=== PATIENT | female | born 1950 | race Caucasian/White ===

== ENCOUNTER 2016-06-30 11:21 | Outpatient (RCR) | payer MEDICAID ==
[~2016-06-30 11:21] MED LIST: ADV1DS; ALBU0.8322 IH; ALBU2.5V4 NEB; ALBU8.5H2 IH; ALBU8.5H2 INH; ALPR-557 PO; AMLO10TA PO; AMLO5TAB2 PO; ASP325T PO; ASP325TEC PO; ASP81CT PO; ASPI-875 PO; ASPI-892 PO; ASPI-983 PO; ATOR80TA PO; BUDE10.2 INH; BUDE6HFA INH; CALC-656 PO; CALC-76 PO; CALC625T68 PO; CEPH250T PO; CETI10CA PO; CLOP75TA28 PO; CLPD75T PO; CYAN50LO PO; DCS100C PO; DIAZ-345 PO; DIPH50CA PO; DIPH50CA33 PO; DOXA2TAB2 PO; DOXA4TAB2 PO; DOXY100C2 PO; DXZS2T GT; ENAL5TAB PO; EZET10TA23 PO; EZET10TA5 PO; EZET1TAB21; FERR-57 PO; FERR27TA PO; FLC100T1 PO; FURO20TA4 PO; FURO40TA4 PO; GABA-488 PO; GBPN300C PO; GENT3.5O3 OP; GENT5DRO30 OU; GLUC500C2 PO; GNT.3OP5 OU; HYDR-3720 PO; HYDR-3820 PO; IBP800T; IBP800T PO; IBUP-1780 PO; IBUP800T26 PO; INSA70301U SQ; INSHUMR1; INSU100I13 SC; INSU100I13 SQ; INSU100I14 SQ; INSU100V11; INSU100V13 IJ; INSU100V16 SQ; ISOS30TA3 PO; K-ROCEP1PB IV; KCL10CCR PO; LEVO50TA6 PO; LORA-405 PO; LORA-794 PO; LORA0.5T PO; LORA1TAB PO; LOSA100T7 PO; LOSA25TA5 PO; LOSA50TA6 PO; LVT.05T PO; MECL-124 PO; METO-272 PO; METO-274 PO; METO200T32 PO; METO50TA7 PO; MICO45CR71 VG; MNTL10T PO; MONT10TA24 PO; MULT-974 PO; NF-MET200T PO; NITR0.4T SL; NPH INSULIN SQ; NPH,100I3 SQ; NYST15PO2 TOP; NYST60PO TOP; OMEP-10 PO; OMEP20CA12 PO; OMEP40CA36 PO; ONDA4FIL4 PO; ONDA4TAB10 SL; ONDA4TAB2 PO; ONDAN4ODT PO; ONDN4T PO; OXYC-191 PO; OXYC-465 PO; OXYC1TAB95 PO; PHEN200T27 PO; PITA2TAB2 PO; PITA4TAB2 PO; POLY17PO6 PO; POTASSIUM; PSYL0.525 PO; REGULAR INSULIN SC; RT-ALBUINH INH; SCOP1PAT TD; SILV25CR TOP; SULF-109 PO; SULF-222 PO; VANCOMYCIN 25 MG/ML OU; WELCHOL 625MG PO; ZLP10T
--- OUTSIDE RECORDS SUMMARY | 2016-06-30 11:24 | XMS REPORT | Continuity of Care Document ---
Author Author [facility] Organization [facility] Address Unknown Phone Unavailable Care Team Providers Care It Auditor Name Role Phone Panda Obregon PCP [phone] Source Comments Some departments are not documenting in the electronic medical record. If you do not see the information that you expected, contact Release of Information in the Health Information Management department at [phone] for further assistance in locating additional records.[facility] Active Allergies and Adverse Reactions Not on File Current Medications Not on file Active Problems Not on file Social History Tobacco Use Types Packs/Day Years Used Date Never Assessed Plan of Care Health Maintenance Due Date Last Done Comments Physical (Comprehensive) 1958 Exam Pertussis Vaccine 1962 Tetanus Vaccine 1968 Cervical Cancer Screening 1972 Breast Cancer Screening 1991 Colorectal Cancer 2001 Screening Shingles Vaccine 2011 Influenza Vaccine 05/07/2016 Results from Last 3 Months Not on file
[2016-08-24] MEDS ORDERED: CEPH-507 PO (18:47)
== END 2016-09-28 | disposition home or self-care (01) ==
LOC: ONC 11:21
PROVIDERS: ATTEND Internal Medicine Hematology & Oncology
DX: N18.9 Chronic kidney disease, unspecified (principal); D63.1 Anemia in chronic kidney disease; I12.9 Hypertensive chronic kidney disease with stage 1 through stage 4 chronic kidney disease, or unspecified chronic kidney disease; E11.22 Type 2 diabetes mellitus with diabetic chronic kidney disease; E03.9 Hypothyroidism, unspecified; I25.10 Atherosclerotic heart disease of native coronary artery without angina pectoris; E83.42 Hypomagnesemia; F41.9 Anxiety disorder, unspecified; F32.9 Major depressive disorder, single episode, unspecified; I65.23 Occlusion and stenosis of bilateral carotid arteries; E66.01 Morbid (severe) obesity due to excess calories; Z68.41 Body mass index [BMI] 40.0-44.9, adult; Z79.4 Long term (current) use of insulin; Z79.899 Other long term (current) drug therapy; Z45.2 Encounter for adjustment and management of vascular access device
CPT/HCPCS: 96523

== ENCOUNTER 2016-09-23 20:13 | Emergency (ER) | payer MEDICAID ==
[~2016-09-23] VITALS: Ht 157.5 cm; Wt 92.4 kg
[~2016-09-23 20:13] MED LIST changes: +CEPH-507 PO
--- OUTSIDE RECORDS SUMMARY | 2016-09-23 20:28 | XMS REPORT | Continuity of Care Document ---
Author Author [facility] Organization [facility] Address Unknown Phone Unavailable Care Team Providers Care Toilet Products Molder Name Role Phone Panda Obregon PCP [phone] Source Comments Some departments are not documenting in the electronic medical record. If you do not see the information that you expected, contact Release of Information in the Health Information Management department at [phone] for further assistance in locating additional records.[facility] Active Allergies and Adverse Reactions Not on [...]
[2016-09-23] MEDS ORDERED: NITROGLYCERIN 2% OINT 1 GM UNIT DOSE PACKET TOP ONE (20:45)
[2016-09-23] MEDS: meTOproloL SUCCINATE 50 MG (TOPROL XL) TAB PO SCH ×2 (20:54→22:04)
[2016-09-23 20:55] LABS: BASOPHILS % (AUTO) 0 % (0-10); EOSINOPHILS # (AUTO) 0.1 10^3/uL (0.0-0.3); EOSINOPHILS % (AUTO) 2 % (0-10); LYMPHOCYTES # (AUTO) 0.5 X 10^3 (1.0-4.0); LYMPHOCYTES % (AUTO) 9 % (12-44); MEAN CORPUSCULAR HEMOGLOBIN 33 PG (25-34); MEAN CORPUSCULAR HGB CONC 33 G/DL (32-36); MEAN CORPUSCULAR VOLUME 99 FL (80-99); MEAN PLATELET VOLUME 11.1 FL (7.4-10.4); MONOCYTES # (AUTO) 0.5 X 10^3 (0.0-1.0); MONOCYTES % (AUTO) 9 % (0-12); NEUTROPHILS # (AUTO) 4.5 X 10^3 (1.8-7.8); NEUTROPHILS % (AUTO) 80 % (42-75); PLATELET COUNT 80 10^3/uL (130-400); RED BLOOD COUNT 3.54 10^6/uL (4.35-5.85); RED CELL DISTRIBUTION WIDTH 14.3 % (10.0-14.5); WHITE BLOOD COUNT 5.6 10^3/uL (4.3-11.0)
[2016-09-23 20:59] LABS: INR 1.2 (0.8-1.4); PROTHROMBIN TIME PATIENT 14.4 SEC (12.2-14.7)
[2016-09-23 21:09] LABS: ALANINE AMINOTRANSFERASE < 6 U/L (0-55); ALBUMIN 3.3 G/DL (3.2-4.5); AMYLASE 35 U/L (25-125); ANION GAP 12 MMOL/L (5-14); ASPARTATE AMINO TRANSFERASE 12 U/L (5-34); BILIRUBIN,TOTAL 0.5 MG/DL (0.1-1.0); BLOOD UREA NITROGEN 17 MG/DL (7-18); BUN/CREATININE RATIO 8; CARBON DIOXIDE 25 MMOL/L (21-32); CHLORIDE 101 MMOL/L (98-107); CREATINE KINASE 67 U/L (29-168); CREATININE SERUM 2.05 MG/DL (0.60-1.30); GFR ESTIMATED 24; GLUCOSE 371 MG/DL (70-105); LIPASE 87 U/L (8-78); POTASSIUM 3.3 MMOL/L (3.6-5.0); SODIUM 138 MMOL/L (135-145); TOTAL PROTEIN 6.2 G/DL (6.4-8.2)
--- NOTE | 2016-09-23 21:09 | Diagnostic Imaging Report ---
INDICATION: Chest pain. EXAMINATION: Single view of the chest was obtained. COMPARISON: 08/13/2016. FINDINGS: There continues to be cardiomegaly. The lungs show good aeration on today's exam. There has been decrease in pulmonary venous congestive changes with clearing of the lung bases. Minimal basilar pleural effusions remain present. Right double-lumen catheter remains present, unchanged. IMPRESSION: 1. Significant improvement in aeration with decreasing infiltrates and pleural effusion since previous exam. 2. Continued cardiomegaly with no evidence of pulmonary edema at this time. Dictated by: Dictated on workstation # [id number]
[2016-09-23] MEDS ORDERED: meTOproloL SUCCINATE 50 MG (TOPROL XL) TAB PO SCH (21:15)
[2016-09-23] MEDS ORDERED: doxAzosin 4 MG (CARDURA) TAB PO SCH (21:15)
[2016-09-23 21:16] LABS: TROPONIN I < 0.30 NG/ML (<0.30)
--- NOTE | 2016-09-23 21:21 | ED Chest Pain ---
General Chief Complaint: Chest Pain Stated Complaint: CHEST PAIN Source: patient (SOMEWHAT LIMITED AND DIFFICULT HISTORIAN), old records History of Present Illness Time seen by provider: 20:30 Initial Comments PT ARRIVES VIA EMS FROM HOME C/O LEFT LOWER CHEST AND MID CHEST PAIN X 3 DAYS C/O COUGH X 3 DAYS--MINIMALLY PRODUCTIVE CHEST PAIN IS SEVERE WITH MOVEMENT, COUGHING OR DEEP BREATHS NO KNOWN FEVER C/O SHORTNESS OF BREATH NO CHANGE IN CHRONIC SWELLING OF LEGS--PT HAS ESRD AND IS ON DIALYSIS / /WED--DID NOT REPORT THESE SYMPTOMS TO THEM YESTERDAY AT DIALYSIS PT STATES SHE HAS HAD A SINUS INFECTION FOR A MONTH, BUT HAS NOT SOUGHT CARE FOR IT HAS HAD NAUSEA TODAY PT DID NOT TAKE ANY OF HER 3 BLOOD PRESSURE MEDICATIONS TODAY, BUT TOOK ALL OF HER OTHER MEDICATIONS PT HAS HYDROCODONE AT HOME FOR CHRONIC PAIN ISSUES, BUT PT HAS NOT TAKEN ANY AT ANY TIME IN THE LAST 3 DAYS FOR PAIN PT TOOK 2 NTG AT HOME WITHOUT RELIEF EMS GAVE 324 MG ASPIRIN, ZOFRAN 4 MG AND FENTANYL 50 MCG WITHOUT IMPROVEMENT IN PAIN PT ALSO USED SYMBICORT JUST PRIOR TO ARRIVAL WITHOUT IMPROVEMENT PT HAS HISTORY OF COPD, CHF, CAD WITH LA X 4 AND STENTS X 11 PER PT PT WEARS O2 AT 2L/NC CONTINUOUSLY PCP: DR. HUMPHREYS ASSISTANT MEDIA BUYER: DR. MACIEL AT [place]--HAS BEEN TO DR. ACOSTA LOCALLY IN THE PAST MEDIA MARKETING COORDINATOR: DR. Lopez" Allergies and Home Medications Allergies Coded Allergies: propoxyphene (Verified Allergy, Mild, DIZZINESS, 02/20/14) codeine (Verified Allergy, Unknown, CAN TAKE OXYCODONE, 02/20/14) esomeprazole (Verified Allergy, Unknown, 02/20/14) ketorolac (Verified Allergy, Unknown, PT TAKES ASPIRIN AT HOME, 02/20/14) levofloxacin (Verified Allergy, Unknown, 02/20/14) promethazine (Verified Allergy, Unknown, 02/20/14) Uncoded Allergies: TAPE (Adverse Reaction, Mild, RASH, 11/23/14) Home Medications Albuterol Sulfate 8.5 Gm Hfa.aer.ad 2 PUFF INH Q4H PRN PRN SHORTNESS OF BREATH ( Reported) Aspirin 81 Mg Tablet.dr 81 MG PO DAILY (Reported) Budesonide/Formoterol Fumarate 10.2 Gm Hfa.aer.ad 2 PUFF INH BID (Reported) Cephalexin 500 Mg Capsule #14 500 MG PO BID Prescribed by: VERNON FLORES on 08/24/167 Clopidogrel Bisulfate 75 Mg Tablet 75 MG PO HS (Reported) Cyanocobalamin 50 Mcg Lozenge 50 MCG PO DAILY (Reported) Doxazosin Mesylate 4 Mg Tablet 4 MG PO DAILY (Reported) Ezetimibe 10 Mg Tablet 10 MG PO HS (Reported) Furosemide 40 Mg Tablet 40 MG PO DAILY (Reported) Gabapentin 300 Mg Capsule 300 MG PO TID (Reported) Gentamicin Sulfate 5 Ml Drops 1 DROP OU Q6H PRN PRN ALLERGIES (Reported) Ibuprofen 800 Mg Tablet 800 MG PO BID PRN PRN PAIN (Reported) Insulin Aspart 100 Unit/1 Ml Susp SQ UD (Reported) 201-250 = 2 UNITS 251-300 = 4 UNITS 301-350 = 6 UNITS 351-400 = 8 UNITS IF > THAN 400, CALL PHYSICIAN Insuln Asp Prt/Insulin Aspart 300 Units/3 Ml Solution 10 UNITS SQ HS (Reported) Insuln Asp Prt/Insulin Aspart 300 Units/3 Ml Solution 30 UNITS SC DAILY ( Reported) Isosorbide Mononitrate 30 Mg Tab.er.24h 15 MG PO HS (Reported) TAKES 1/2 (30MG) TABLET Levothyroxine Sodium 50 Mcg Tablet 50 MCG PO DAILY (Reported) Lorazepam 0.5 Mg Tablet 0.5 MG PO TID PRN PRN ANXIETY (Reported) Metoprolol Succinate 200 Mg Tab.er.24h 200 MG PO DAILY (Reported) Montelukast Sodium 10 Mg Tablet 10 MG PO HS (Reported) Nitroglycerin 0.4 Mg Tab.subl 0.4 MG SL UD PRN PRN CHEST PAIN (Reported) PLACE 1 TABLET UNDER TONGUE EVERY 5 MINUTES X 3 DOSES NEEDED FOR CHEST PAIN Nystatin 15 Gm Powder TOP BID PRN PRN RASH (Reported) Omeprazole 40 Mg Capsule.dr 40 MG PO DAILY (Reported) Ondansetron HCl 4 Mg Tablet 4 MG SL TID PRN PRN NAUSEA (Reported) Oxycodone HCl/Acetaminophen 1 Each Tablet 1 TAB PO Q6H PRN PRN PAIN (Reported) Review of Systems Constitutional: no symptoms reported EENTM: See HPI Nose Congestion Respiratory: See HPI Cough Shortness of Air Cardiovascular: See HPI Chest Pain EdemaDenies Lightheadedness, Denies Palpitations, Denies Syncope Gastrointestinal: Denies Abdominal Pain, NauseaDenies Vomiting Genitourinary: See HPI Musculoskeletal: see HPI (LEFT CHEST ) Skin: no symptoms reportedNo rash Psychiatric/Neurological: No Symptoms Reported Endocrine: No Symptoms Reported Hematologic/Lymphatic: No Symptoms Reported Past Nxpjghd-Xrsjmy-Nkjlqf Hx Patient Social History Alcohol Use: Denies Use Recreational Drug Use: No Smoking Status: Never a Smoker Recent Hopitalizations: No Immunizations Up To Date Tetanus Booster (TDap): Unknown PED Vaccines UTD: Yes Date of Pneumonia Vaccine: Feb 04, 2011 Date of Influenza Vaccine: Jun 23, 2014 Seasonal Allergies Seasonal Allergies: Yes Surgeries HX Surgeries: Yes (RIGHT CENTRAL DIALYSIS LINE, LEFT PORT; CARDIAC CATHS WITH STENTS X 11 ( PER PT) ; HIATAL HERNIA REPAIR; BILATERAL ROTATOR CUFF REPAIR; BACK SURGERY; SPIDER BITE SKIN EXCISION; HYST/BSO) Surgeries: Abdominal, Appendectomy, Arteriovenous Shunt, Cardiac, Coronary Stent, Dialysis, Eye Surgery, Gallbladder, Hysterectomy, Oophorectomy, Orthopedic, Vascular Surgery Respiratory Hx Respiratory Disorders: Yes (O2 AT 2L/NC CONTINUOUSLY) Respiratory Disorders: Asthma, Sleep Apnea, COPD Cardiovascular Hx Cardiac Disorders: Yes (CARDIAC STENTS X 11, "leaky valve"; LA X 4 PER PT) Cardiac Disorders: Chronic Edema/Swelling, Coronary Artery Disease, Heart Attack, High Cholesterol, Hypertension, Valvular Heart Disease Neurological Hx Neurological Disorders: Yes Neurological Disorders: Stroke Reproductive System Hx Reproductive Disorders: Yes Sexually Transmitted Disease: No HIV/AIDS: 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 Genitourinary Hx Genitourinary Disorders: Yes Genitourinary Disorders: Renal Failure, Dialysis Gastrointestinal Hx Gastrointestinal Disorders: Yes (SPASTIC COLON) Gastrointestinal Disorders: Gastroesophageal Reflux, Diverticulosis, Pancreatitis Musculoskeletal Hx Musculoskeletal Disorders: Yes (SCIATICA CHRONIC, RIGHT ARM FX 2015-CHRONIC RIGHT ARM PAIN ) Musculoskeletal Disorders: Arthritis, Fibromyalgia, Chronic Back Pain, Fractures Endocrine Hx Endocrine Disorders: Yes Endocrine Disorders: Diabetes, Insulin dep, Hypothyroidsim HEENT HX ENT Disorders: Yes (HX RETINAL BLOOD VESSELS RUPTURING ) HEENT Disorders: Cataract Cancer Hx Cancer: No Psychosocial Hx Psychiatric Problems: Yes (PANIC ATTACKS) Behavioral Health Disorders: Anxiety Integumentary HX Skin/Integumentary Disorder: Yes (HX MRSA ) Blood Transfusions Hx Blood Disorders: Yes (being treated by dr. rogel for low blood counts/ANEMIA) Adverse Reaction to a Blood Tr: No (does not want to receieve blood products) Family Medical History Family Medial History: Cancer 03 MOTHER (OVARIAN CANCER) Congestive heart failure 09 BROTHER ( OF CHF) DVT 09 SISTER FH: COPD (chronic obstructive pulmonary disease) 09 SISTER FH: bipolar disorder 09 BROTHER FH: emphysema 03 FATHER FHx: multiple sclerosis 09 BROTHER Family history: Cardiovascular disease 03 FATHER, Onset:Unknown Family history: Diabetes mellitus 03 MOTHER 09 BROTHER Family history: Hypertension 09 SISTER (ACTUALLY HAS LOW BLOOD PRESSURE NOT HIGH) Physical Exam Vital Signs Vital Sign - Last 12Hours Capillary Refill : General Appearance: No Apparent Distress WD/WN Other (PT SPLINTING LEFT CHEST AND GRIMACING. ) HEENT: PERRL/EOMI Neck: Full Range of Motion Normal Inspection Non Tender SuppleNo Carotid Bruit , No JVD Respiratory: Normal Breath Sounds No Accessory Muscle Use No Respiratory Distress Other (MARKED TENDERNESS TO LEFT MID AND LOWER CHEST WALL AND LEFT LATERAL AND POSTERIOR RIB AREA) Cardiovascular: Regular Rate, Rhythm No JVD No Murmur Normal Peripheral Pulses Gastrointestinal: Normal Bowel Sounds No Organomegaly No Pulsatile Mass Non Tender Soft Extremity: Normal Capillary Refill Normal Range of Motion Non Tender No Calf Tenderness Pedal Edema (2+ BILATERAL, CHRONIC VENOUS STASIS CHANGES BILATERALLY- -MILD ERYTHEMA TO LOWER LEGS BILATERALLY) Neurologic/Psychiatric: Alert Oriented x3 No 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 ANXIOUS. ) Skin: Normal Color Warm/Dry Progress/Results/Core Measures Results/Orders Lab Results Laboratory Tests Test 09/23/16 20:13 09/23/16 20:35 09/23/16 22:03 09/23/16 23:05 Range/Units Activated Partial Thromboplast Time 41 H 24-35 SEC Alanine Aminotransferase (ALT/SGPT) < 6 0-55 U/L Albumin 3.3 3.2-4.5 G/DL Alkaline Phosphatase 109 40-136 U/L Amylase Level 35 25-125 U/L Anion Gap 12 5-14 MMOL/L Aspartate Amino Transf (AST/SGOT) 12 5-34 U/L B-Type Natriuretic Peptide 325.0 H <100.0 PG/ML BUN/Creatinine Ratio 8 Basophils # (Auto) 0.0 0.0-0.1 10^3/uL Basophils (%) (Auto) 0 0-10 % Blood Urea Nitrogen 17 7-18 MG/DL Calcium Level 8.0 L 8.5-10.1 MG/DL Carbon Dioxide Level 25 21-32 MMOL/L Chloride Level 101 98-107 MMOL/L Creatine Kinase MB 2.4 <6.6 NG/ML Creatinine 2.05 H 0.60-1.30 MG/DL Eosinophils # (Auto) 0.1 0.0-0.3 10^3/uL Eosinophils (%) (Auto) 2 0-10 % Estimat Glomerular Filtration Rate 24 Glucose Level 371 H 70-105 MG/DL Hematocrit 35 35-52 % Hemoglobin 11.5 11.5-16.0 G/DL INR Comment 1.2 0.8-1.4 Lipase 87 H 8-78 U/L Lymphocytes # (Auto) 0.5 L 1.0-4.0 X 10^3 Lymphocytes (%) (Auto) 9 L 12-44 % Mean Corpuscular Hemoglobin 33 25-34 PG Mean Corpuscular Hemoglobin Concent 33 32-36 G/DL Mean Corpuscular Volume 99 80-99 FL Mean Platelet Volume 11.1 H 7.4-10.4 FL Monocytes # (Auto) 0.5 0.0-1.0 X 10^3 Monocytes (%) (Auto) 9 0-12 % Neutrophils # (Auto) 4.5 1.8-7.8 X 10^3 Neutrophils (%) (Auto) 80 H 42-75 % Platelet Count 80 L 130-400 10^3/uL Potassium Level 3.3 L 3.6-5.0 MMOL/L Prothrombin Time 14.4 12.2-14.7 SEC Red Blood Count 3.54 L 4.35-5.85 10^6/uL Red Cell Distribution Width 14.3 10.0-14.5 % Sodium Level 138 135-145 MMOL/L Total Bilirubin 0.5 0.1-1.0 MG/DL Total Creatine Kinase 67 29-168 U/L Total Protein 6.2 L 6.4-8.2 G/DL Troponin I < 0.30 <0.30 NG/ML White Blood Count 5.6 4.3-11.0 10^3/uL Lactic Acid Level 1.3 0.5-2.0 MMOL/L Glucometer 262 H 187 H 70-110 MG/DL Micro Results Microbiology 09/23/16 Influenza Types A,B Antigen (FAY) - Final, Complete My Orders Orders-ANNE MARIE ROSEN DO Amylase (09/23/16 20:41) Cbc With Automated Diff (09/23/16 20:41) Comprehensive Metabolic Panel (09/23/16 20:41) Creatine Kinase (09/23/16 20:41) Creatine Kinase Mb (09/23/16 20:41) Lipase (09/23/16 20:41) Partial Thromboplastin Time (09/23/16 20:41) Protime With Inr (09/23/16 20:41) Troponin I (09/23/16 20:41) Chest 1 View, Ap/Pa Only (09/23/16 20:41) O2 (09/23/16 20:41) Ekg Tracing (09/23/16 20:41) BNP (09/23/16 20:41) Monitor-Rhythm Ecg Trace Only (09/23/16 20:41) Lactic Acid Analyzer (09/23/16 20:41) Blood Culture (09/23/16 20:41) Influenza A And B Antigens (09/23/16 20:41) Nitroglycerin Ointment (Nitrobid Ointme (09/23/16 20:45) Metoprolol Succinate (Xl) Tab (Toprol Xl (09/23/16 20:45) Metoprolol Succinate (Xl) Tab (Toprol Xl (09/23/16 21:15) Doxazosin Tablet (Cardura Tablet) (09/23/16 21:15) Amlodipine Tablet (Norvasc Tablet) (09/23/16 21:15) Insulin (Regular) Human (Humulin R (Per (09/23/16 21:45) Morphine Injection (Morphine Injection (09/23/16 21:39) Accucheck Stat ONCE (09/23/16 21:55) Insulin (Regular) Human (Humulin R (Per (09/23/16 22:15) Ns (Ivpb) (Sodium C... W/Nicardipine Iv (09/23/16 22:45) Ns (Ivpb) (Sodium Chloride 0.9%) (09/23/16 22:36) Nicardipine Iv For Drip (Cardene I.V. (O (09/23/16 22:36) Medications Given in ED Current Medications Medications Dose Ordered Sig/Adela Route Start Time Stop Time Status Last Admin Dose Admin Insulin Human Regular 15 unit ONCE ONCE IV 09/23/16 22:15 09/23/16 22:16 DC 09/23/16 22:18 8 UNIT Nitroglycerin 1 inch ONCE ONCE TOP 09/23/16 20:45 09/23/16 20:49 DC 09/23/16 20:54 1 INCH Vital Signs/I&O Vital Sign - Last 12Hours 09/23/16 09/23/16 09/23/16 09/23/16 20:13 20:13 20:13 22:04 Temp 99.3 99.3 Pulse 86 Resp 16 B/P 215/109 Pulse Ox 98 98 O2 Delivery Nasal Cannula Room Air Nasal Cannula O2 Flow Rate 2 2 2 09/23/16 09/24/16 23:15 01:58 Temp 99.1 99.1 Pulse 71 71 Resp 16 16 B/P 146/67 Pulse Ox 98 98 O2 Delivery Nasal Cannula Nasal Cannula O2 Flow Rate 2 2.00 Progress Note : Progress Note MILD RELIEF OF PAIN WITH 1" NITROPASTE AND BP DOWN TO 199/87 GIVEN PT'S REGULAR BP MEDICATIONS WELL--METOPROLOL, CARDURA, AMLODIPINE PT ALSO GIVEN MORPHINE FOR CHEST PAIN --STATES IT MADE CHEST PAIN WORSE ( HAS HAD MORPHINE MULTIPLE TIMES BEFORE AND NOT HAD PROBLEMS) , BUT PT IS NOT SPLINTING OR GRIMACING AND IS VERY TALKATIVE WITH FEMALE IN ROOM.AND DOES NOT APPEAR TO BE IN ANY DISCOMFORT. BP IS ALSO DOWN AFTER MORPHINE WAS GIVEN BP DOWN TO 155/76 PRIOR TO STARTING CARDENE DRIP, SO IT WAS HELD. BP DOWN TO 146 /67 AT TIME OF TRANSFER 2200--ACCUCHECK 264-- 15 UNITS OF REGULAR INSULIN GIVEN, WHICH PT REFUSED AND STATES SHE WILL ONLY AGREE TO 8 UNITS--STATES HER "BLOOD SUGAR CAN NEVER GET BELOW 200 OR SHE WILL HAVE A SEIZURE" ACCUCHECK 187 AT TIME OF TRANSFER AND PT IS NOT HAVING ANY SYMPTOMS OF LOW BLOOD GLUCOSE. ECG Initial ECG Impression Time: 20:27 Initial ECG Rate: 85 Initial ECG Rhythm: Normal Sinus Initial ECG Comparisson: Unchanged Diagnostic Imaging Comments CXR--NO ACUTE PROCESS, SIGNIFICANT IMPROVEMENT IN AERATION WITH DECREASED INFILTRATES/PLEURAL EFFUSION AND NO PULMONARY EDEMA. CHRONIC CARDIOMEGALY--PER RADIOLOGIST REPORT @ 2114 Reviewed: Reviewed by Me Departure Communication Progress Notes 2139--CALLED [facility] DIRECT CALL 2145--SPOKE WITH DR. THOMPSON, HOSPITALIST, ACCEPTS PT FOR ADMIT. ADVISES LEE UTCKER TO GET SYSTOLIC BP < 160 Impression Impression: Primary Impression: Chest pain Additional Impressions: Uncontrolled hypertension Bronchitis Chest wall pain ESRD on dialysis Hx of coronary artery disease Diabetes mellitus, insulin dependent (IDDM), uncontrolled Disposition: XFER SHT-TRM HOSP Condition: Improved Departure-Patient Inst. Referrals: ISABEL HUMPHREYS MD (PCP/Family) Primary Care Physician ANNE MARIE ROSEN DO Sep 23, 2016 21:21
[2016-09-23] MEDS ORDERED: morphine INJ 10 MG/ML 1ML (SYR OR VIAL) IVP STA (21:39)
[2016-09-23] MEDS ORDERED: inSUlin (REGULAR) HUMAN 1 UNIT/0.01 ML (CHARGE PER UNIT) IV ONE ×2 (21:45→22:15)
[2016-09-23] MEDS: amLODIPine 10 MG (NORVASC) TAB PO ONE ×2 (22:04→22:13)
[2016-09-23] MEDS ORDERED: niCARdipine IV FOR DRIP 50 MG KIT ONE (22:36)
[2016-09-23] MEDS ORDERED: NS (IVPB) 250 ML ONE (22:36)
[2016-09-23] MEDS ORDERED: niCARdipine IV 50 MG in NS (IVPB) 230 ML IV SCH (22:45)
[2016-09-24 01:58] VITALS: BP 146/67
== END 2016-09-23 23:15 | disposition short-term general hospital (02) ==
LOC: EDUNIT# 20:22 → ER 20:23
DX: R07.9 Chest pain, unspecified (principal); J40 Bronchitis, not specified as acute or chronic; I51.7 Cardiomegaly; E11.65 Type 2 diabetes mellitus with hyperglycemia; I12.0 Hypertensive chronic kidney disease with stage 5 chronic kidney disease or end stage renal disease; N18.6 End stage renal disease; I50.9 Heart failure, unspecified; I25.10 Atherosclerotic heart disease of native coronary artery without angina pectoris; J44.9 Chronic obstructive pulmonary disease, unspecified; I25.2 Old myocardial infarction; Z79.4 Long term (current) use of insulin; Z79.82 Long term (current) use of aspirin; Z79.02 Long term (current) use of antithrombotics/antiplatelets; Z79.899 Other long term (current) drug therapy; Z95.5 Presence of coronary angioplasty implant and graft; Z99.81 Dependence on supplemental oxygen
CPT/HCPCS: 36415; 71010; 80053; 82150; 82550; 82553; 82962; 83605; 83690; 83880; 84484; 85025; 85610; 85730; 87040; 87804; 93005; 93041; 96374; 96375

== ENCOUNTER 2016-10-10 19:40 | Emergency (ER) | payer MEDICAID ==
[~2016-10-10] VITALS: Ht 167.6 cm; Wt 113.4 kg
--- OUTSIDE RECORDS SUMMARY | 2016-10-10 19:47 | XMS REPORT | Continuity of Care Document ---
Author Author [facility] Organization [facility] Address Unknown Phone Unavailable Care Team Providers Care Food Technician Name Role Phone Pnada Obregon PCP [phone] Source Comments Some departments are not documenting in the electronic medical record. If you do not see the information that you expected, contact Release of Information in the Health Information Management department at [phone] for further assistance in locating additional records.[facility] Active Allergies and Adverse Reactions Not [...]
[2016-10-10 20:02] LABS: BASOPHILS % (AUTO) 0 % (0-10); EOSINOPHILS # (AUTO) 0.2 10^3/uL (0.0-0.3); EOSINOPHILS % (AUTO) 3 % (0-10); LYMPHOCYTES # (AUTO) 0.5 X 10^3 (1.0-4.0); LYMPHOCYTES % (AUTO) 9 % (12-44); MEAN CORPUSCULAR HEMOGLOBIN 32 PG (25-34); MEAN CORPUSCULAR HGB CONC 34 G/DL (32-36); MEAN CORPUSCULAR VOLUME 95 FL (80-99); MEAN PLATELET VOLUME 10.4 FL (7.4-10.4); MONOCYTES # (AUTO) 0.5 X 10^3 (0.0-1.0); MONOCYTES % (AUTO) 10 % (0-12); NEUTROPHILS # (AUTO) 3.7 X 10^3 (1.8-7.8); NEUTROPHILS % (AUTO) 77 % (42-75); PLATELET COUNT 102 10^3/uL (130-400); RED BLOOD COUNT 3.48 10^6/uL (4.35-5.85); RED CELL DISTRIBUTION WIDTH 12.9 % (10.0-14.5); WHITE BLOOD COUNT 4.8 10^3/uL (4.3-11.0)
[2016-10-10] MEDS ORDERED: morphine INJ 10 MG/ML 1ML (SYR OR VIAL) IVP STA ×3 (20:16→22:09)
[2016-10-10 20:18] LABS: ALANINE AMINOTRANSFERASE 8 U/L (0-55); ALBUMIN 3.6 G/DL (3.2-4.5); ANION GAP 12 MMOL/L (5-14); ASPARTATE AMINO TRANSFERASE 20 U/L (5-34); BILIRUBIN,TOTAL 0.4 MG/DL (0.1-1.0); BLOOD UREA NITROGEN 15 MG/DL (7-18); BUN/CREATININE RATIO 10; CALCIUM 8.2 MG/DL (8.5-10.1); CARBON DIOXIDE 30 MMOL/L (21-32); CHLORIDE 95 MMOL/L (98-107); CREATININE SERUM 1.47 MG/DL (0.60-1.30); GFR ESTIMATED 36; GLUCOSE 371 MG/DL (70-105); MAGNESIUM 1.6 MG/DL (1.8-2.4); POTASSIUM 3.5 MMOL/L (3.6-5.0); SODIUM 137 MMOL/L (135-145); TOTAL PROTEIN 6.6 G/DL (6.4-8.2)
[2016-10-10] MEDS ORDERED: morphine INJ 10 MG/ML 1ML (SYR OR VIAL) ONE (20:19)
--- NOTE | 2016-10-10 20:19 | ED Chest Pain ---
General Chief Complaint: Chest Pain Stated Complaint: CHEST PAIN Source: patient Exam Limitations: no limitations History of Present Illness Time seen by provider: 20:05 Initial Comments Here with report of chest pain that started earlier today during dialysis. She reports that it was right-sided and radiating to her right arm. Describes it as a pressure and moderate. This evening it worsened and now is radiating to her neck and her left arm is also hurting. Denies nausea or vomiting. Does have significant cardiac history including 11 stents with the last one placed in September of this year. She did miss dialysis earlier this week but made a port today. She is not sure how much fluid they took off but had a 2 kg weight loss after dialysis. Timing/Duration: 4-6 hours Severity/Quality: moderate, severe Location: central Radiation: arms, neck, shoulders Prior CP/Workup: angina, cardiac cath, echocardiography, heart attack, stress test ASA po [employer]ADLEY [employer]MEMBER: Yes NTG SL BRADLEY [employer]WMEMBER: Yes Associated Symptoms: No abdominal pain, back painNo diaphoresis, edemaNo fever/chills, No nausea/vomiting, No shortness of breath, No weakness Allergies and Home Medications Allergies Coded Allergies: propoxyphene (Verified Allergy, Mild, DIZZINESS, 02/20/14) codeine (Verified Allergy, Unknown, CAN TAKE OXYCODONE, 02/20/14) esomeprazole (Verified Allergy, Unknown, 02/20/14) ketorolac (Verified Allergy, Unknown, PT TAKES ASPIRIN AT HOME, 02/20/14) levofloxacin (Verified Allergy, Unknown, 02/20/14) promethazine (Verified Allergy, Unknown, 02/20/14) Uncoded Allergies: TAPE (Adverse Reaction, Mild, RASH, 11/23/14) Home Medications Albuterol Sulfate 8.5 Gm Hfa.aer.ad 2 PUFF INH Q4H PRN PRN SHORTNESS OF BREATH ( Reported) Aspirin 81 Mg Tablet.dr 81 MG PO DAILY (Reported) Budesonide/Formoterol Fumarate 10.2 Gm Hfa.aer.ad 2 PUFF INH BID (Reported) Cephalexin 500 Mg Capsule #14 500 MG PO BID Prescribed by: VERNON FLORES on 08/24/16 3814 Clopidogrel Bisulfate 75 Mg Tablet 75 MG PO HS (Reported) Cyanocobalamin 50 Mcg Lozenge 50 MCG PO DAILY (Reported) Doxazosin Mesylate 4 Mg Tablet 4 MG PO DAILY (Reported) Ezetimibe 10 Mg Tablet 10 MG PO HS (Reported) Furosemide 40 Mg Tablet 40 MG PO DAILY (Reported) Gabapentin 300 Mg Capsule 300 MG PO TID (Reported) Gentamicin Sulfate 5 Ml Drops 1 DROP OU Q6H PRN PRN ALLERGIES (Reported) Ibuprofen 800 Mg Tablet 800 MG PO BID PRN PRN PAIN (Reported) Insulin Aspart 100 Unit/1 Ml Susp SQ UD (Reported) 201-250 = 2 UNITS 251-300 = 4 UNITS 301-350 = 6 UNITS 351-400 = 8 UNITS IF > THAN 400, CALL PHYSICIAN Insuln Asp Prt/Insulin Aspart 300 Units/3 Ml Solution 10 UNITS SQ HS (Reported) Insuln Asp Prt/Insulin Aspart 300 Units/3 Ml Solution 30 UNITS SC DAILY ( Reported) Isosorbide Mononitrate 30 Mg Tab.er.24h 15 MG PO HS (Reported) TAKES 1/2 (30MG) TABLET Levothyroxine Sodium 50 Mcg Tablet 50 MCG PO DAILY (Reported) Lorazepam 0.5 Mg Tablet 0.5 MG PO TID PRN PRN ANXIETY (Reported) Metoprolol Succinate 200 Mg Tab.er.24h 200 MG PO DAILY (Reported) Montelukast Sodium 10 Mg Tablet 10 MG PO HS (Reported) Nitroglycerin 0.4 Mg Tab.subl 0.4 MG SL UD PRN PRN CHEST PAIN (Reported) PLACE 1 TABLET UNDER TONGUE EVERY 5 MINUTES X 3 DOSES NEEDED FOR CHEST PAIN Nystatin 15 Gm Powder TOP BID PRN PRN RASH (Reported) Omeprazole 40 Mg Capsule.dr 40 MG PO DAILY (Reported) Ondansetron HCl 4 Mg Tablet 4 MG SL TID PRN PRN NAUSEA (Reported) Oxycodone HCl/Acetaminophen 1 Each Tablet 1 TAB PO Q6H PRN PRN PAIN (Reported) Review of Systems Constitutional: see HPINo chills, No fever EENTM: No Symptoms Reported Respiratory: No Symptoms Reported Cardiovascular: See HPI Chest Pain Edema Gastrointestinal: No Symptoms Reported Genitourinary: No Symptoms Reported Musculoskeletal: no symptoms reported Skin: no symptoms reported All Other Systems Reviewed Negative Unless Noted: Yes Past Ujkihdv-Paeicu-Nangok Hx Patient Social History Alcohol Use: Denies Use Recreational Drug Use: No Smoking Status: Never a Smoker Recent Hopitalizations: No Immunizations Up To Date Tetanus Booster (TDap): Unknown PED Vaccines UTD: Yes Date of Pneumonia Vaccine: Feb 04, 2011 Date of Influenza Vaccine: Jun 08, 2017 Seasonal Allergies Seasonal Allergies: Yes Surgeries HX Surgeries: Yes Surgeries: Abdominal, Appendectomy, Arteriovenous Shunt, Cardiac, Coronary Stent, Dialysis, Eye Surgery, Gallbladder, Hysterectomy, Oophorectomy, Orthopedic, Vascular Surgery Respiratory Hx Respiratory Disorders: Yes (O2 AT 2L/NC CONTINUOUSLY) Respiratory Disorders: Asthma, Sleep Apnea, COPD Cardiovascular Hx Cardiac Disorders: Yes (CARDIAC STENTS X 11, "leaky valve"; AR X 4 PER PT) Cardiac Disorders: Chronic Edema/Swelling, Coronary Artery Disease, Heart Attack, High Cholesterol, Hypertension, Valvular Heart Disease Neurological Hx Neurological Disorders: Yes Neurological Disorders: Stroke Reproductive System Hx Reproductive Disorders: Yes Sexually Transmitted Disease: No 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 Genitourinary Hx Genitourinary Disorders: Yes Genitourinary Disorders: Renal Failure, Dialysis Gastrointestinal Hx Gastrointestinal Disorders: Yes (SPASTIC COLON) Gastrointestinal Disorders: Gastroesophageal Reflux, Diverticulosis, Pancreatitis Musculoskeletal Hx Musculoskeletal Disorders: Yes (SCIATICA CHRONIC, RIGHT ARM FX 2015-CHRONIC RIGHT ARM PAIN ) Musculoskeletal Disorders: Arthritis, Fibromyalgia, Chronic Back Pain, Fractures Endocrine Hx Endocrine Disorders: Yes Endocrine Disorders: Diabetes, Insulin dep, Hypothyroidsim HEENT HX ENT Disorders: Yes (HX RETINAL BLOOD VESSELS RUPTURING ) HEENT Disorders: Cataract Cancer Hx Cancer: No Psychosocial Hx Psychiatric Problems: Yes (PANIC ATTACKS) Behavioral Health Disorders: Anxiety Integumentary HX Skin/Integumentary Disorder: Yes (HX MRSA ) Blood Transfusions Hx Blood Disorders: Yes (being treated by dr. rogel for low blood counts/ANEMIA) Adverse Reaction to a Blood Tr: No (does not want to receieve blood products) Reviewed Nursing Assessment Reviewed/Agree w Nursing PMH: Yes Family Medical History Family Medial History: Cancer 03 MOTHER (OVARIAN CANCER) Congestive heart failure 09 BROTHER ( OF CHF) DVT 09 SISTER FH: COPD (chronic obstructive pulmonary disease) 09 SISTER FH: bipolar disorder 09 BROTHER FH: emphysema 03 FATHER FHx: multiple sclerosis 09 BROTHER Family history: Cardiovascular disease 03 FATHER, Onset:Unknown Family history: Diabetes mellitus 03 MOTHER 09 BROTHER Family history: Hypertension 09 SISTER (ACTUALLY HAS LOW BLOOD PRESSURE NOT HIGH) Physical Exam Vital Signs Vital Sign - Last 12Hours 10/10/16 19:45 Temp 98.6 Pulse 70 Resp 18 B/P 217/104 Pulse Ox 99 O2 Delivery Nasal Cannula O2 Flow Rate 2 Capillary Refill : General Appearance: No Apparent Distress WD/WN HEENT: PERRL/EOMI Pharynx Normal Neck: Non Tender Supple Respiratory: Lungs Clear Normal Breath Sounds Cardiovascular: Regular Rate, Rhythm No Murmur Gastrointestinal: Non Tender Soft Extremity: Non Tender No Calf Tenderness Neurologic/Psychiatric: Alert Oriented x3 Skin: Normal Color Warm/Dry Progress/Results/Core Measures Results/Orders Lab Results Laboratory Tests Test 10/10/16 19:50 Range/Units Activated Partial Thromboplast Time 29 24-35 SEC Alanine Aminotransferase (ALT/SGPT) 8 0-55 U/L Albumin 3.6 3.2-4.5 G/DL Alkaline Phosphatase 129 40-136 U/L Anion Gap 12 5-14 MMOL/L Aspartate Amino Transf (AST/SGOT) 20 5-34 U/L B-Type Natriuretic Peptide 371.4 H <100.0 PG/ML BUN/Creatinine Ratio 10 Basophils # (Auto) 0.0 0.0-0.1 10^3/uL Basophils (%) (Auto) 0 0-10 % Blood Urea Nitrogen 15 7-18 MG/DL Calcium Level 8.2 L 8.5-10.1 MG/DL Carbon Dioxide Level 30 21-32 MMOL/L Chloride Level 95 L 98-107 MMOL/L Creatinine 1.47 H 0.60-1.30 MG/DL D-Dimer 1.47 H 0.00-0.49 UG/ML Eosinophils # (Auto) 0.2 0.0-0.3 10^3/uL Eosinophils (%) (Auto) 3 0-10 % Estimat Glomerular Filtration Rate 36 Glucose Level 371 H 70-105 MG/DL Hematocrit 33 L 35-52 % Hemoglobin 11.2 L 11.5-16.0 G/DL INR Comment 1.1 0.8-1.4 Lymphocytes # (Auto) 0.5 L 1.0-4.0 X 10^3 Lymphocytes (%) (Auto) 9 L 12-44 % Magnesium Level 1.6 L 1.8-2.4 MG/DL Mean Corpuscular Hemoglobin 32 25-34 PG Mean Corpuscular Hemoglobin Concent 34 32-36 G/DL Mean Corpuscular Volume 95 80-99 FL Mean Platelet Volume 10.4 7.4-10.4 FL Monocytes # (Auto) 0.5 0.0-1.0 X 10^3 Monocytes (%) (Auto) 10 0-12 % Myoglobin 198.8 H 10.0-92.0 NG/ML Neutrophils # (Auto) 3.7 1.8-7.8 X 10^3 Neutrophils (%) (Auto) 77 H 42-75 % Platelet Count 102 L 130-400 10^3/uL Potassium Level 3.5 L 3.6-5.0 MMOL/L Prothrombin Time 13.4 12.2-14.7 SEC Red Blood Count 3.48 L 4.35-5.85 10^6/uL Red Cell Distribution Width 12.9 10.0-14.5 % Sodium Level 137 135-145 MMOL/L Total Bilirubin 0.4 0.1-1.0 MG/DL Total Protein 6.6 6.4-8.2 G/DL Troponin I < 0.30 <0.30 NG/ML White Blood Count 4.8 4.3-11.0 10^3/uL My Orders Orders-GUMARO HEBERT MD Cbc With Automated Diff (10/10/16 19:47) Magnesium (10/10/16 19:47) Chest 1 View, Ap/Pa Only (10/10/16 19:47) Ekg Tracing (10/10/16 19:47) Cardiac Profile 1 (10/10/16 19:47) Comprehensive Metabolic Panel (10/10/16 19:47) Myoglobin Serum (10/10/16 19:47) Protime With Inr (10/10/16 19:47) Partial Thromboplastin Time (10/10/16 19:47) O2 (10/10/16 19:47) Monitor-Rhythm Ecg Trace Only (10/10/16 19:47) Lipid Panel (10/11/16 06:00) Saline Lock/Iv-Start (10/10/16 19:47) BNP (10/10/16 19:47) Fibrin Degradation Products (10/10/16 19:47) Morphine Injection (Morphine Injection (10/10/16 20:16) Hydralazine Injection (Apresoline Inject (10/10/16 20:30) Morphine Injection (Morphine Injection (10/10/16 20:19) Morphine Injection (Morphine Injection (10/10/16 21:28) Morphine Injection (Morphine Injection (10/10/16 22:09) Medications Given in ED Current Medications Medications Dose Ordered Sig/Adela Route Start Time Stop Time Status Last Admin Dose Admin Hydralazine HCl 20 mg ONCE ONCE IV 10/10/16 20:30 10/10/16 20:31 DC 10/10/16 20:22 20 MG Vital Signs/I&O Vital Sign - Last 12Hours 10/10/16 19:45 Temp 98.6 Pulse 70 Resp 18 B/P 217/104 Pulse Ox 99 O2 Delivery Nasal Cannula O2 Flow Rate 2 Progress Note : Progress Note Seen and evaluated. IV, labs, EKG and chest x-ray ordered. Patient has received ASA 3 doses of nitroglycerin already. Blood pressure noted to be 210 systolic. Hydralazine 20 mg IV given. She did have good response with hydralazine and morphine 2 mg IV with blood pressure decreased to 130s systolic. Patient did have persistent chest pain. Repeat morphine 2 mg IV. 2200: Repeat morphine 4 mg IV for persistent chest pain. I did discuss with the patient about her labs and findings. No significant findings currently but patient does have significant history including stenting. 2224: Due to persistent chest pain and the need for dialysis, patient will need to be transferred. I did discuss the case with Dr. David at [facility] in [place], [place]. He graciously accepts patient for transfer. Patient is in agreement with plan. To transfer via EMS. ECG Initial ECG Impression Date: Oct 10, 2016 Initial ECG Impression Time: 19:48 Initial ECG Rate: 70 Initial ECG Rhythm: Normal Sinus Comment Sinus rhythm with normal axis. No evidence of ST elevation AR. Similar to previous of 09/23/16. Interpreted by me. Diagnostic Imaging Diagonstic Imaging: Xray Plain Films/CT/US/NM/MRI: chest Comments NAME: MALVIN PRUETT [facility] REC#: [id number] PT STATUS: REG ER : 1950 PHYSICIAN: GUMARO HEBERT MD ADMIT DATE: 10/10/16/ER Signed Date of Exam: 10/10/16 CHEST 1 VIEW, AP/PA ONLY INDICATION: Chest pain and shortness of air for the last several hours. COMPARISON STUDY: Chest from September 23. FINDINGS: Portable view of the chest demonstrates stable cardiomegaly. Dialysis catheter and Port-A-Cath remain in place. Mild pulmonary edema is present. There are now effusions. IMPRESSION: Stable cardiomegaly. Mild pulmonary edema is present. A coronary artery stent is seen. Dictated by: Dictated on workstation # [id number] Dict: 10/10/162016 Trans: 10/10/162022 PJE [id number] Interpreted by: PETE BLANCO MD Electronically signed by:PETE BLANCO MD 10/10/162024 Reviewed: Reviewed by Me Departure Impression Impression: Primary Impression: Chest pain Qualified Code: R07.9 - Chest pain, unspecified Additional Impression: End stage renal failure on dialysis Disposition: SHT-TRM HOSP Condition: Stable Transfer Transfer Time: 22:24 Transfer Facility: [place], [place], Dr. David accepting. Method of Transfer: EMS Departure-Patient Inst. Referrals: ISABEL HUMPHREYS MD (PCP/Family) Primary Care Physician GUMARO HEBERT MD Oct 10, 2016 20:19
[2016-10-10 20:24] LABS: MYOGLOBIN SERUM 198.8 NG/ML (10.0-92.0)
[2016-10-10] MEDS ORDERED: hydrALAZINE (APESOLINE) 20 MG/ML VIAL IV ONE (20:30)
[2016-10-10 20:35] LABS: INR 1.1 (0.8-1.4); PROTHROMBIN TIME PATIENT 13.4 SEC (12.2-14.7)
[2016-10-10 22:57] VITALS: BP 130/63
== END 2016-10-10 23:30 | disposition short-term general hospital (02) ==
LOC: EDUNIT# 19:40 → ER 19:42
DX: R07.9 Chest pain, unspecified (principal); I12.0 Hypertensive chronic kidney disease with stage 5 chronic kidney disease or end stage renal disease; N18.6 End stage renal disease; I51.7 Cardiomegaly; E11.9 Type 2 diabetes mellitus without complications; I25.10 Atherosclerotic heart disease of native coronary artery without angina pectoris; Z79.4 Long term (current) use of insulin; Z79.02 Long term (current) use of antithrombotics/antiplatelets; Z79.899 Other long term (current) drug therapy; Z95.5 Presence of coronary angioplasty implant and graft
CPT/HCPCS: 36415; 71010; 80053; 83735; 83874; 83880; 84484; 85025; 85379; 85610; 85730; 93005; 93041; 96374; 96375; 96376

== ENCOUNTER 2016-12-10 12:15 | Outpatient (RCR) | payer MEDICAID ==
--- OUTSIDE RECORDS SUMMARY | 2016-10-07 09:22 | XMS REPORT | Continuity of Care Document ---
Author Author [facility] Organization [facility] Address Unknown Phone Unavailable Care Team Providers Care Hotbed Transfer Operator Name Role Phone Panda Obregon PCP [phone] Source Comments Some departments are not documenting in the electronic medical record. If you do not see the information that you expected, contact Release of Information in the Health Information Management department at [phone] for further assistance in locating additional records.[facility] Active Allergies and Adverse Reactions Not on [...]
[2016-10-07 09:52] LABS: BASOPHILS % (AUTO) 0 % (0-10); EOSINOPHILS # (AUTO) 0.1 10^3/uL (0.0-0.3); EOSINOPHILS % (AUTO) 3 % (0-10); LYMPHOCYTES # (AUTO) 0.5 X 10^3 (1.0-4.0); LYMPHOCYTES % (AUTO) 14 % (12-44); MEAN CORPUSCULAR HEMOGLOBIN 32 PG (25-34); MEAN CORPUSCULAR HGB CONC 34 G/DL (32-36); MEAN CORPUSCULAR VOLUME 96 FL (80-99); MONOCYTES # (AUTO) 0.4 X 10^3 (0.0-1.0); MONOCYTES % (AUTO) 11 % (0-12); NEUTROPHILS # (AUTO) 2.5 X 10^3 (1.8-7.8); NEUTROPHILS % (AUTO) 72 % (42-75); PLATELET COUNT 94 10^3/uL (130-400); RED BLOOD COUNT 3.45 10^6/uL (4.35-5.85); RED CELL DISTRIBUTION WIDTH 13.4 % (10.0-14.5); WHITE BLOOD COUNT 3.5 10^3/uL (4.3-11.0)
[2016-10-07 10:24] LABS: ALANINE AMINOTRANSFERASE < 6 U/L (0-55); ALBUMIN 3.5 G/DL (3.2-4.5); ANION GAP 12 MMOL/L (5-14); ASPARTATE AMINO TRANSFERASE 14 U/L (5-34); BILIRUBIN,TOTAL 0.3 MG/DL (0.1-1.0); BLOOD UREA NITROGEN 20 MG/DL (7-18); BUN/CREATININE RATIO 9; CALCIUM 7.9 MG/DL (8.5-10.1); CARBON DIOXIDE 26 MMOL/L (21-32); CHLORIDE 100 MMOL/L (98-107); CREATININE SERUM 2.34 MG/DL (0.60-1.30); GFR ESTIMATED 21; MAGNESIUM 1.6 MG/DL (1.8-2.4); POTASSIUM 3.4 MMOL/L (3.6-5.0); SODIUM 138 MMOL/L (135-145); TOTAL PROTEIN 6.3 G/DL (6.4-8.2)
[2016-10-07 10:33] LABS: GLUCOSE 407 MG/DL (70-105)
[2016-10-07 10:50] LABS: THYROID STIMULATING HORMONE 1.71 UIU/ML (0.35-4.94)
[2016-12-10 12:58] LABS: BASOPHILS % (AUTO) 1 % (0-10); EOSINOPHILS # (AUTO) 0.2 10^3/uL (0.0-0.3); EOSINOPHILS % (AUTO) 4 % (0-10); LYMPHOCYTES # (AUTO) 0.6 X 10^3 (1.0-4.0); LYMPHOCYTES % (AUTO) 16 % (12-44); MEAN CORPUSCULAR HEMOGLOBIN 32 PG (25-34); MEAN CORPUSCULAR HGB CONC 33 G/DL (32-36); MEAN CORPUSCULAR VOLUME 97 FL (80-99); MEAN PLATELET VOLUME 10.6 FL (7.4-10.4); MONOCYTES # (AUTO) 0.4 X 10^3 (0.0-1.0); MONOCYTES % (AUTO) 10 % (0-12); NEUTROPHILS # (AUTO) 2.8 X 10^3 (1.8-7.8); NEUTROPHILS % (AUTO) 70 % (42-75); PLATELET COUNT 106 10^3/uL (130-400); RED CELL DISTRIBUTION WIDTH 13.8 % (10.0-14.5)
[2016-12-10 13:14] LABS: ALBUMIN 3.4 G/DL (3.2-4.5); BILIRUBIN,TOTAL 0.4 MG/DL (0.1-1.0); CALCIUM 8.3 MG/DL (8.5-10.1); CREATININE SERUM 2.34 MG/DL (0.60-1.30); TOTAL PROTEIN 6.3 G/DL (6.4-8.2)
[2016-12-10 13:26] LABS: MAGNESIUM 1.8 MG/DL (1.8-2.4); POTASSIUM 4.2 MMOL/L (3.6-5.0)
== END 2017-01-05 | disposition home or self-care (01) ==
LOC: ONC 12:15
PROVIDERS: ATTEND Internal Medicine Hematology & Oncology
DX: N18.9 Chronic kidney disease, unspecified (principal); D63.1 Anemia in chronic kidney disease; I12.9 Hypertensive chronic kidney disease with stage 1 through stage 4 chronic kidney disease, or unspecified chronic kidney disease; E11.22 Type 2 diabetes mellitus with diabetic chronic kidney disease; E03.9 Hypothyroidism, unspecified; I25.10 Atherosclerotic heart disease of native coronary artery without angina pectoris; E83.42 Hypomagnesemia; F41.9 Anxiety disorder, unspecified; F32.9 Major depressive disorder, single episode, unspecified; I65.23 Occlusion and stenosis of bilateral carotid arteries; E66.01 Morbid (severe) obesity due to excess calories; Z68.41 Body mass index [BMI] 40.0-44.9, adult; Z79.4 Long term (current) use of insulin; Z79.899 Other long term (current) drug therapy
CPT/HCPCS: 36591; 80053; 82728; 83540; 83735; 84443; 85025; 99213

== ENCOUNTER 2016-12-18 08:20 | Emergency (ER) | payer MEDICARE, MEDICAID ==
[~2016-12-18] VITALS: Ht 157.5 cm; Wt 94.3 kg
[2016-12-18 08:45] LABS: BASOPHILS % (AUTO) 0 % (0-10); EOSINOPHILS # (AUTO) 0.1 10^3/uL (0.0-0.3); EOSINOPHILS % (AUTO) 2 % (0-10); LYMPHOCYTES # (AUTO) 0.5 X 10^3 (1.0-4.0); LYMPHOCYTES % (AUTO) 13 % (12-44); MEAN CORPUSCULAR HEMOGLOBIN 32 PG (25-34); MEAN CORPUSCULAR HGB CONC 33 G/DL (32-36); MEAN CORPUSCULAR VOLUME 95 FL (80-99); MEAN PLATELET VOLUME 10.3 FL (7.4-10.4); MONOCYTES # (AUTO) 0.3 X 10^3 (0.0-1.0); MONOCYTES % (AUTO) 8 % (0-12); NEUTROPHILS # (AUTO) 3.1 X 10^3 (1.8-7.8); NEUTROPHILS % (AUTO) 77 % (42-75); PLATELET COUNT 96 10^3/uL (130-400); RED BLOOD COUNT 3.26 10^6/uL (4.35-5.85); RED CELL DISTRIBUTION WIDTH 13.7 % (10.0-14.5); WHITE BLOOD COUNT 4.1 10^3/uL (4.3-11.0)
[2016-12-18] MEDS ORDERED: HYDROmorphone (DILAUDID) 2 MG/ML VIAL ONE (08:57)
[2016-12-18] MEDS ORDERED: HYDROmorphone (DILAUDID) 2 MG/ML VIAL IVP ONE (09:00)
--- NOTE | 2016-12-18 09:07 | ED Chest Pain ---
General Chief Complaint: Chest Pain Stated Complaint: CHEST PAIN Nursing Triage Note: PT DEVELOPED SUBSTERNAL CHEST PAIN THAT RADIATES INTO HER THROAT AROUND 0200 THIS AM. PT C/O NAUSEA. PT HAS HAD 3 NTG 0.4MG WITHOUT RELIEF. PT HAS A HX OF 11 STENTS. Nursing Sepsis Screen: No Definite Risk Source: patient Exam Limitations: no limitations History of Present Illness Time seen by provider: 09:01 Initial Comments The patient is a 66-year-old female with known heart disease and renal failure on dialysis. She in fact is to dialyze today. She reports at the O2 00 today she had a bout of chest pain. It continued intermittently through the night. There was a short period of relief and then at 0700 it began again. She has had previous surgery and instrumentation. She also reports shortness of breath. Despite having received 6 mg of morphine she continues to complain of pain. Timing/Duration: 4-6 hours Severity/Quality: moderate Location: central Radiation: no radiation Activities at Onset: rest Prior CP/Workup: cardiac cath, heart attack Allergies and Home Medications Allergies Coded Allergies: propoxyphene (Verified Allergy, Mild, DIZZINESS, 02/20/14) codeine (Verified Allergy, Unknown, CAN TAKE OXYCODONE, 02/20/14) esomeprazole (Verified Allergy, Unknown, 02/20/14) ketorolac (Verified Allergy, Unknown, PT TAKES ASPIRIN AT HOME, 02/20/14) levofloxacin (Verified Allergy, Unknown, 02/20/14) promethazine (Verified Allergy, Unknown, 02/20/14) Uncoded Allergies: TAPE (Adverse Reaction, Mild, RASH, 11/23/14) Home Medications Albuterol Sulfate 8.5 Gm Hfa.aer.ad, 2 PUFF INH Q4H PRN for SHORTNESS OF BREATH, (Reported) Aspirin 81 Mg Tablet.dr, 81 MG PO DAILY, (Reported) Budesonide/Formoterol Fumarate 10.2 Gm Hfa.aer.ad, 2 PUFF INH BID, (Reported) Cephalexin 500 Mg Capsule, 500 MG PO BID, #14 Prescribed by: VERNON FLORES on 08/24/16 7420 Clopidogrel Bisulfate 75 Mg Tablet, 75 MG PO HS, (Reported) Cyanocobalamin 50 Mcg Lozenge, 50 MCG PO DAILY, (Reported) Doxazosin Mesylate 4 Mg Tablet, 4 MG PO DAILY, (Reported) Ezetimibe 10 Mg Tablet, 10 MG PO HS, (Reported) Furosemide 40 Mg Tablet, 40 MG PO DAILY, (Reported) Gabapentin 300 Mg Capsule, 300 MG PO TID, (Reported) Gentamicin Sulfate 5 Ml Drops, 1 DROP OU Q6H PRN for ALLERGIES, (Reported) Ibuprofen 800 Mg Tablet, 800 MG PO BID PRN for PAIN, (Reported) Insulin Aspart 100 Unit/1 Ml Susp, SQ UD, (Reported) 201-250 = 2 UNITS 251-300 = 4 UNITS 301-350 = 6 UNITS 351-400 = 8 UNITS IF > THAN 400, CALL PHYSICIAN Insuln Asp Prt/Insulin Aspart 300 Units/3 Ml Solution, 10 UNITS SQ HS, (Reported ) Insuln Asp Prt/Insulin Aspart 300 Units/3 Ml Solution, 30 UNITS SC DAILY, ( Reported) Isosorbide Mononitrate 30 Mg Tab.er.24h, 15 MG PO HS, (Reported) TAKES 1/2 (30MG) TABLET Levothyroxine Sodium 50 Mcg Tablet, 50 MCG PO DAILY, (Reported) Lorazepam 0.5 Mg Tablet, 0.5 MG PO TID PRN for ANXIETY, (Reported) Metoprolol Succinate 200 Mg Tab.er.24h, 200 MG PO DAILY, (Reported) Montelukast Sodium 10 Mg Tablet, 10 MG PO HS, (Reported) Nitroglycerin 0.4 Mg Tab.subl, 0.4 MG SL UD PRN for CHEST PAIN, (Reported) PLACE 1 TABLET UNDER TONGUE EVERY 5 MINUTES X 3 DOSES NEEDED FOR CHEST PAIN Nystatin 15 Gm Powder, TOP BID PRN for RASH, (Reported) Omeprazole 40 Mg Capsule.dr, 40 MG PO DAILY, (Reported) Ondansetron HCl 4 Mg Tablet, 4 MG SL TID PRN for NAUSEA, (Reported) Oxycodone HCl/Acetaminophen 1 Each Tablet, 1 TAB PO Q6H PRN for PAIN, (Reported) Review of Systems Constitutional: see HPI EENTM: No Symptoms Reported Respiratory: SOA With Exertion Cardiovascular: See HPI, Chest Pain Past Lttrqoe-Gljioi-Kbquhs Hx Patient Social History Alcohol Use: Denies Use Recreational Drug Use: No Smoking Status: Never a Smoker Recent Foreign Travel: No Contact w/Someone Who Travel: No Recent Infectious Disease Expo: No Recent Hopitalizations: No Immunizations Up To Date Tetanus Booster (TDap): Unknown PED Vaccines UTD: Yes Date of Pneumonia Vaccine: Feb 04, 2011 Date of Influenza Vaccine: Jun 08, 2017 Seasonal Allergies Seasonal Allergies: Yes Surgeries HX Surgeries: Yes Surgeries: Abdominal, Appendectomy, Arteriovenous Shunt, Cardiac, Coronary Stent, Dialysis, Eye Surgery, Gallbladder, Hysterectomy, Oophorectomy, Orthopedic, Vascular Surgery Respiratory Hx Respiratory Disorders: Yes Respiratory Disorders: Asthma, COPD Cardiovascular Hx Cardiac Disorders: Yes Cardiac Disorders: Hypertension Neurological Hx Neurological Disorders: Yes Neurological Disorders: Stroke Reproductive System Hx Reproductive Disorders: Yes Sexually Transmitted Disease: No 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 Genitourinary Hx Genitourinary Disorders: Yes Genitourinary Disorders: Renal Failure, Dialysis Gastrointestinal Hx Gastrointestinal Disorders: Yes (SPASTIC COLON) Gastrointestinal Disorders: Gastroesophageal Reflux, Diverticulosis, Pancreatitis Musculoskeletal Hx Musculoskeletal Disorders: Yes (SCIATICA CHRONIC, RIGHT ARM FX 2015-CHRONIC RIGHT ARM PAIN ) Musculoskeletal Disorders: Arthritis, Fibromyalgia, Chronic Back Pain, Fractures Endocrine Hx Endocrine Disorders: Yes Endocrine Disorders: Diabetes, Insulin dep, Hypothyroidsim HEENT HX ENT Disorders: Yes (HX RETINAL BLOOD VESSELS RUPTURING ) HEENT Disorders: Cataract Cancer Hx Cancer: No Psychosocial Hx Psychiatric Problems: Yes (PANIC ATTACKS) Behavioral Health Disorders: Anxiety Integumentary HX Skin/Integumentary Disorder: Yes (HX MRSA ) Blood Transfusions Hx Blood Disorders: Yes (being treated by dr. rogel for low blood counts/ANEMIA) Adverse Reaction to a Blood Tr: No (does not want to receieve blood products) Family Medical History Family Medial History: Cancer 03 MOTHER (OVARIAN CANCER) Congestive heart failure 09 BROTHER ( OF CHF) DVT 09 SISTER FH: COPD (chronic obstructive pulmonary disease) 09 SISTER FH: bipolar disorder 09 BROTHER FH: emphysema 03 FATHER FHx: multiple sclerosis 09 BROTHER Family history: Cardiovascular disease 03 FATHER, Onset:Unknown Family history: Diabetes mellitus 03 MOTHER 09 BROTHER Family history: Hypertension 09 SISTER (ACTUALLY HAS LOW BLOOD PRESSURE NOT HIGH) Physical Exam Vital Signs Vital Sign - Last 12Hours 12/18/16 12/18/16 08:26 08:37 Temp 97.6 Pulse 70 Resp 20 B/P (MAP) 206/107 Pulse Ox 98 O2 Delivery Nasal Cannula O2 Flow Rate 2.0 Capillary Refill : Less Than 3 Seconds General Appearance: Mild Distress, Moderate Distress HEENT: Normal ENT Inspection Neck: Normal Inspection Respiratory: Chest Non Tender, Lungs Clear, Normal Breath Sounds, No Accessory Muscle Use, No Respiratory Distress, Decreased Breath Sounds (distant) Cardiovascular: Regular Rate, Rhythm, No Edema, No Gallop, No JVD, No Murmur, Normal Peripheral Pulses Gastrointestinal: Normal Bowel Sounds, No Organomegaly, No Pulsatile Mass, Non Tender Extremity: Normal Capillary Refill, Normal Inspection, Normal Range of Motion, Non Tender, No Calf Tenderness, Other Neurologic/Psychiatric: Alert, Oriented x3, No Motor/Sensory Deficits, Normal Mood/Affect Skin: Normal Color, Warm/Dry Lymphatic: No Adenopathy Other comments 3+ edema bilaterally below the knees. Bronzy red discoloration consistent with venous stasis. Pebbly vesiculation over anterior tibia Progress/Results/Core Measures Results/Orders Lab Results Laboratory Tests Test 12/18/16 08:35 Range/Units White Blood Count 4.1 L 4.3-11.0 10^3/uL Red Blood Count 3.26 L 4.35-5.85 10^6/uL Hemoglobin 10.3 L 11.5-16.0 G/DL Hematocrit 31 L 35-52 % Mean Corpuscular Volume 95 80-99 FL Mean Corpuscular Hemoglobin 32 25-34 PG Mean Corpuscular Hemoglobin Concent 33 32-36 G/DL Red Cell Distribution Width 13.7 10.0-14.5 % Platelet Count 96 L 130-400 10^3/uL Mean Platelet Volume 10.3 7.4-10.4 FL Neutrophils (%) (Auto) 77 H 42-75 % Lymphocytes (%) (Auto) 13 12-44 % Monocytes (%) (Auto) 8 0-12 % Eosinophils (%) (Auto) 2 0-10 % Basophils (%) (Auto) 0 0-10 % Neutrophils # (Auto) 3.1 1.8-7.8 X 10^3 Lymphocytes # (Auto) 0.5 L 1.0-4.0 X 10^3 Monocytes # (Auto) 0.3 0.0-1.0 X 10^3 Eosinophils # (Auto) 0.1 0.0-0.3 10^3/uL Basophils # (Auto) 0.0 0.0-0.1 10^3/uL Sodium Level 138 135-145 MMOL/L Potassium Level 3.9 3.6-5.0 MMOL/L Chloride Level 99 98-107 MMOL/L Carbon Dioxide Level 30 21-32 MMOL/L Anion Gap 9 5-14 MMOL/L Blood Urea Nitrogen 22 H 7-18 MG/DL Creatinine 2.41 H 0.60-1.30 MG/DL Estimat Glomerular Filtration Rate 20 BUN/Creatinine Ratio 9 Glucose Level 250 H 70-105 MG/DL Calcium Level 8.4 L 8.5-10.1 MG/DL Total Bilirubin 0.6 0.1-1.0 MG/DL Aspartate Amino Transf (AST/SGOT) 13 5-34 U/L Alanine Aminotransferase (ALT/SGPT) 7 0-55 U/L Alkaline Phosphatase 108 40-136 U/L Troponin I < 0.30 <0.30 NG/ML Total Protein 6.3 L 6.4-8.2 G/DL Albumin 3.4 3.2-4.5 G/DL My Orders Orders - TREVOR TURCIOS MD Cbc With Automated Diff (12/18/16 08:22) Comprehensive Metabolic Panel (12/18/16 08:22) Troponin I (12/18/16 08:22) Chest 1 View, Ap/Pa Only (12/18/16 08:22) Ekg Tracing (12/18/16 08:22) Hydromorphone Injection (Dilaudid Inject (12/18/16 09:00) Hydromorphone Injection (Dilaudid Inject (12/18/16 08:57) Medications Given in ED Current Medications Medications Dose Ordered Sig/Adela Route Start Time Stop Time Status Last Admin Dose Admin Hydromorphone HCl 1 mg ONCE ONCE IVP 12/18/16 09:00 12/18/16 09:01 DC 12/18/16 09:05 1 MG Vital Signs/I&O Vital Sign - Last 12Hours 12/18/16 12/18/16 12/18/16 12/18/16 08:26 08:37 09:11 09:30 Temp 97.6 Pulse 70 65 63 Resp 20 12 16 B/P (MAP) 206/107 200/100 198/94 Pulse Ox 98 98 98 O2 Delivery Nasal Cannula Nasal Cannula Nasal Cannula Nasal Cannula O2 Flow Rate 2.0 2.00 2.00 12/18/16 09:51 Pulse 63 Resp 12 B/P (MAP) 171/78 Pulse Ox 97 O2 Delivery Nasal Cannula O2 Flow Rate 2.00 Blood Pressure Mean: 140 Departure Impression Impression: Primary Impression: chest pain Additional Impression: renal failure Disposition: 02 XFER SHT-TRM HOSP Transfer Transfer Time: 10:05 Transfer Facility: [facility] Method of Transfer: EMS Departure-Patient Inst. Decision time for Depature: 10:05 Referrals: ISABEL HUMPHREYS MD (PCP/Family) Primary Care Physician TREVOR TURCIOS MD Dec 18, 2016 09:07
[2016-12-18 09:08] LABS: ALANINE AMINOTRANSFERASE 7 U/L (0-55); ALBUMIN 3.4 G/DL (3.2-4.5); ANION GAP 9 MMOL/L (5-14); ASPARTATE AMINO TRANSFERASE 13 U/L (5-34); BILIRUBIN,TOTAL 0.6 MG/DL (0.1-1.0); BLOOD UREA NITROGEN 22 MG/DL (7-18); BUN/CREATININE RATIO 9; CALCIUM 8.4 MG/DL (8.5-10.1); CARBON DIOXIDE 30 MMOL/L (21-32); CHLORIDE 99 MMOL/L (98-107); CREATININE SERUM 2.41 MG/DL (0.60-1.30); GFR ESTIMATED 20; GLUCOSE 250 MG/DL (70-105); POTASSIUM 3.9 MMOL/L (3.6-5.0); SODIUM 138 MMOL/L (135-145); TOTAL PROTEIN 6.3 G/DL (6.4-8.2)
[2016-12-18 09:11] VITALS: BP 200/100
[2016-12-18 09:19] LABS: TROPONIN I < 0.30 NG/ML (<0.30)
[2016-12-18 09:30] VITALS: BP 198/94
--- NOTE | 2016-12-18 09:38 | Diagnostic Imaging Report ---
Portable upright radiograph of the chest. INDICATION: Chest pain. FINDINGS: There is marked cardiomegaly without pulmonary vascular congestion. There is a right internal jugular tunneled venous catheters with the tip at the upper right atrium. There is minimal effusion along the minor fissure. There is a port seen with the tip in the lower SVC. IMPRESSION: Cardiomegaly with pulmonary vascular congestion. Dictated by: Dictated on workstation # [id number]
[2016-12-18 09:51] VITALS: BP 171/78
[2016-12-18 10:12] VITALS: BP 159/72
[2016-12-18 11:09] VITALS: BP 157/79
[2016-12-18 12:06] VITALS: BP 156/78
== END 2016-12-18 12:09 | disposition short-term general hospital (02) ==
LOC: EDUNIT# 08:20 → ER 08:21
DX: R07.9 Chest pain, unspecified (principal); I12.0 Hypertensive chronic kidney disease with stage 5 chronic kidney disease or end stage renal disease; N18.6 End stage renal disease; Z99.2 Dependence on renal dialysis; I51.7 Cardiomegaly; J44.9 Chronic obstructive pulmonary disease, unspecified; E11.9 Type 2 diabetes mellitus without complications; Z79.82 Long term (current) use of aspirin; Z79.4 Long term (current) use of insulin; Z79.899 Other long term (current) drug therapy
CPT/HCPCS: 36415; 71010; 80053; 84484; 85025; 93005; 96374

== ENCOUNTER 2017-01-06 00:43 | Emergency (ER) | payer MEDICARE, MEDICAID ==
[~2017-01-06] VITALS: Ht 157.5 cm; Wt 95.3 kg
--- NOTE | 2017-01-06 01:08 | ED Chest Pain ---
General Chief Complaint: Chest Pain Stated Complaint: CP,SYNCOPAL Nursing Triage Note: BROUGHT IN BY [facility] FOR C/O CHEST PAIN/SYNCOPE. Nursing Sepsis Screen: No Definite Risk Source: patient, EMS, RN notes reviewed Exam Limitations: no limitations History of Present Illness Time seen by provider: 01:07 Initial Comments Substernal chest pain. Timing/Duration: 1-3 hours Severity/Quality: moderate (8/10), aching Location: substernal Radiation: no radiation Activities at Onset: none Prior CP/Workup: cardiac cath, echocardiography Modifying Factors: improves with nitroglycerin ASA po COMMISSIONING SPECIALIST: Yes NTG SL COMMISSIONING SPECIALIST: Yes Associated Symptoms: denies symptoms Allergies and Home Medications Allergies Coded Allergies: propoxyphene (Verified Allergy, Mild, DIZZINESS, 02/20/14) codeine (Verified Allergy, Unknown, CAN TAKE OXYCODONE, 02/20/14) esomeprazole (Verified Allergy, Unknown, 02/20/14) ketorolac (Verified Allergy, Unknown, PT TAKES ASPIRIN AT HOME, 02/20/14) levofloxacin (Verified Allergy, Unknown, 02/20/14) promethazine (Verified Allergy, Unknown, 02/20/14) Uncoded Allergies: TAPE (Adverse Reaction, Mild, RASH, 11/23/14) Home Medications Albuterol Sulfate 8.5 Gm Hfa.aer.ad, 2 PUFF INH Q4H PRN for SHORTNESS OF BREATH, (Reported) Aspirin 81 Mg Tablet.dr, 81 MG PO DAILY, (Reported) Budesonide/Formoterol Fumarate 10.2 Gm Hfa.aer.ad, 2 PUFF INH BID, (Reported) Cephalexin 500 Mg Capsule, 500 MG PO BID, #14 Prescribed by: VERNON FLORES on 08/24/16 1847 Clopidogrel Bisulfate 75 Mg Tablet, 75 MG PO HS, (Reported) Cyanocobalamin 50 Mcg Lozenge, 50 MCG PO DAILY, (Reported) Doxazosin Mesylate 4 Mg Tablet, 4 MG PO DAILY, (Reported) Ezetimibe 10 Mg Tablet, 10 MG PO HS, (Reported) Furosemide 40 Mg Tablet, 40 MG PO DAILY, (Reported) Gabapentin 300 Mg Capsule, 300 MG PO TID, (Reported) Gentamicin Sulfate 5 Ml Drops, 1 DROP OU Q6H PRN for ALLERGIES, (Reported) Ibuprofen 800 Mg Tablet, 800 MG PO BID PRN for PAIN, (Reported) Insulin Aspart 100 Unit/1 Ml Susp, SQ UD, (Reported) 201-250 = 2 UNITS 251-300 = 4 UNITS 301-350 = 6 UNITS 351-400 = 8 UNITS IF > THAN 400, CALL PHYSICIAN Insuln Asp Prt/Insulin Aspart 300 Units/3 Ml Solution, 10 UNITS SQ HS, (Reported ) Insuln Asp Prt/Insulin Aspart 300 Units/3 Ml Solution, 30 UNITS SC DAILY, ( Reported) Isosorbide Mononitrate 30 Mg Tab.er.24h, 15 MG PO HS, (Reported) TAKES 1/2 (30MG) TABLET Levothyroxine Sodium 50 Mcg Tablet, 50 MCG PO DAILY, (Reported) Lorazepam 0.5 Mg Tablet, 0.5 MG PO TID PRN for ANXIETY, (Reported) Metoprolol Succinate 200 Mg Tab.er.24h, 200 MG PO DAILY, (Reported) Montelukast Sodium 10 Mg Tablet, 10 MG PO HS, (Reported) Nitroglycerin 0.4 Mg Tab.subl, 0.4 MG SL UD PRN for CHEST PAIN, (Reported) PLACE 1 TABLET UNDER TONGUE EVERY 5 MINUTES X 3 DOSES NEEDED FOR CHEST PAIN Nystatin 15 Gm Powder, TOP BID PRN for RASH, (Reported) Omeprazole 40 Mg Capsule.dr, 40 MG PO DAILY, (Reported) Ondansetron HCl 4 Mg Tablet, 4 MG SL TID PRN for NAUSEA, (Reported) Oxycodone HCl/Acetaminophen 1 Each Tablet, 1 TAB PO Q6H PRN for PAIN, (Reported) Review of Systems Constitutional: see HPI Cardiovascular: See HPI, Chest Pain All Other Systems Reviewed Negative Unless Noted: Yes (Negative excepted noted.) Past Siyitod-Kyhznt-Qxkrnx Hx Patient Social History Alcohol Use: Denies Use Recreational Drug Use: No Smoking Status: Never a Smoker Recent Foreign Travel: No Contact w/Someone Who Travel: No Recent Infectious Disease Expo: No Recent Hopitalizations: No Immunizations Up To Date Tetanus Booster (TDap): Unknown PED Vaccines UTD: Yes Date of Pneumonia Vaccine: Feb 04, 2011 Date of Influenza Vaccine: Jun 08, 2017 Seasonal Allergies Seasonal Allergies: Yes Surgeries HX Surgeries: Yes Surgeries: Abdominal, Appendectomy, Arteriovenous Shunt, Cardiac, Coronary Stent, Dialysis, Eye Surgery, Gallbladder, Hysterectomy, Oophorectomy, Orthopedic, Vascular Surgery Respiratory Hx Respiratory Disorders: Yes Respiratory Disorders: Asthma, COPD Cardiovascular Hx Cardiac Disorders: Yes Cardiac Disorders: Hypertension Neurological Hx Neurological Disorders: Yes Neurological Disorders: Stroke Reproductive System Hx Reproductive Disorders: Yes Sexually Transmitted Disease: No HIV/AIDS: No 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 Genitourinary Hx Genitourinary Disorders: Yes Genitourinary Disorders: Renal Failure, Dialysis Gastrointestinal Hx Gastrointestinal Disorders: Yes (SPASTIC COLON) Gastrointestinal Disorders: Gastroesophageal Reflux, Diverticulosis, Pancreatitis Musculoskeletal Hx Musculoskeletal Disorders: Yes (SCIATICA CHRONIC, RIGHT ARM FX 2015-CHRONIC RIGHT ARM PAIN ) Musculoskeletal Disorders: Arthritis, Fibromyalgia, Chronic Back Pain, Fractures Endocrine Hx Endocrine Disorders: Yes Endocrine Disorders: Diabetes, Insulin dep, Hypothyroidsim HEENT HX ENT Disorders: Yes (HX RETINAL BLOOD VESSELS RUPTURING ) HEENT Disorders: Cataract Cancer Hx Cancer: No Psychosocial Hx Psychiatric Problems: Yes (PANIC ATTACKS) Behavioral Health Disorders: Anxiety Integumentary HX Skin/Integumentary Disorder: Yes (HX MRSA ) Blood Transfusions Hx Blood Disorders: Yes (being treated by dr. rogel for low blood counts/ANEMIA) Adverse Reaction to a Blood Tr: No (does not want to receieve blood products) Family Medical History Family Medial History: Cancer 03 MOTHER (OVARIAN CANCER) Congestive heart failure 09 BROTHER ( OF CHF) DVT 09 SISTER FH: COPD (chronic obstructive pulmonary disease) 09 SISTER FH: bipolar disorder 09 BROTHER FH: emphysema 03 FATHER FHx: multiple sclerosis 09 BROTHER Family history: Cardiovascular disease 03 FATHER, Onset:Unknown Family history: Diabetes mellitus 03 MOTHER 09 BROTHER Family history: Hypertension 09 SISTER (ACTUALLY HAS LOW BLOOD PRESSURE NOT HIGH) Physical Exam Vital Signs Vital Sign - Last 12Hours 01/06/17 00:48 Temp 98.2 Pulse 83 Resp 18 B/P (MAP) 173/80 Pulse Ox 98 O2 Delivery Nasal Cannula O2 Flow Rate 4.0 Capillary Refill : Less Than 3 Seconds General Appearance: No Apparent Distress, WD/WN, Obese Respiratory: No Respiratory Distress Cardiovascular: Regular Rate, Rhythm Rectal: Deferred Extremity: Pedal Edema Neurologic/Psychiatric: Alert, Oriented x3, No Motor/Sensory Deficits Skin: Warm/Dry Progress/Results/Core Measures Results/Orders Lab Results Laboratory Tests Test 01/06/17 01:00 Range/Units White Blood Count 4.6 4.3-11.0 10^3/uL Red Blood Count 3.30 L 4.35-5.85 10^6/uL Hemoglobin 10.6 L 11.5-16.0 G/DL Hematocrit 32 L 35-52 % Mean Corpuscular Volume 98 80-99 FL Mean Corpuscular Hemoglobin 32 25-34 PG Mean Corpuscular Hemoglobin Concent 33 32-36 G/DL Red Cell Distribution Width 14.9 H 10.0-14.5 % Platelet Count 117 L 130-400 10^3/uL Mean Platelet Volume 9.7 7.4-10.4 FL Neutrophils (%) (Auto) 78 H 42-75 % Lymphocytes (%) (Auto) 12 12-44 % Monocytes (%) (Auto) 8 0-12 % Eosinophils (%) (Auto) 2 0-10 % Basophils (%) (Auto) 0 0-10 % Neutrophils # (Auto) 3.6 1.8-7.8 X 10^3 Lymphocytes # (Auto) 0.6 L 1.0-4.0 X 10^3 Monocytes # (Auto) 0.4 0.0-1.0 X 10^3 Eosinophils # (Auto) 0.1 0.0-0.3 10^3/uL Basophils # (Auto) 0.0 0.0-0.1 10^3/uL Prothrombin Time 14.8 H 12.2-14.7 SEC INR Comment 1.2 0.8-1.4 Activated Partial Thromboplast Time > 200 *H 24-35 SEC Sodium Level 137 135-145 MMOL/L Potassium Level 3.6 3.6-5.0 MMOL/L Chloride Level 96 L 98-107 MMOL/L Carbon Dioxide Level 30 21-32 MMOL/L Anion Gap 11 5-14 MMOL/L Blood Urea Nitrogen 15 7-18 MG/DL Creatinine 2.94 H 0.60-1.30 MG/DL Estimat Glomerular Filtration Rate 16 BUN/Creatinine Ratio 5 Glucose Level 243 H 70-105 MG/DL Calcium Level 8.2 L 8.5-10.1 MG/DL Magnesium Level 1.7 L 1.8-2.4 MG/DL Total Bilirubin 0.5 0.1-1.0 MG/DL Aspartate Amino Transf (AST/SGOT) 28 5-34 U/L Alanine Aminotransferase (ALT/SGPT) 12 0-55 U/L Alkaline Phosphatase 120 40-136 U/L Troponin I < 0.30 <0.30 NG/ML B-Type Natriuretic Peptide 383.6 H <100.0 PG/ML Total Protein 6.4 6.4-8.2 G/DL Albumin 3.5 3.2-4.5 G/DL Lipase 19 8-78 U/L My Orders Orders - ANDREAMARCELA Tiffany DO Cbc With Automated Diff (01/06/17 01:10) Magnesium (01/06/17 01:10) Chest 1 View, Ap/Pa Only (01/06/17 01:10) Ekg Tracing (01/06/17 01:10) Comprehensive Metabolic Panel (01/06/17 01:10) Protime With Inr (01/06/17 01:10) Partial Thromboplastin Time (01/06/17 01:10) O2 (01/06/17 01:10) Monitor-Rhythm Ecg Trace Only (01/06/17 01:10) Saline Lock/Iv-Start (01/06/17 01:10) Lipase (01/06/17 01:10) BNP (01/06/17 01:10) Troponin I (01/06/17 01:10) Lactated Ringers (Lr 1000 Ml Iv Solution (01/06/17 01:19) Lorazepam Injection (Ativan Injection) (01/06/17 01:30) Lorazepam Injection (Ativan Injection) (01/06/17 02:45) Clonidine Tablet (Catapres Tablet) (01/06/17 02:45) Oxycodone/Apap 5/325mg Tablet (Percocet (01/06/17 03:30) Oxycodone/Apap 5/325mg Tablet (Percocet (01/06/17 03:21) Iv Push [employer] (01/06/17 ) Medications Given in ED Vital Signs/I&O Vital Sign - Last 12Hours 01/06/17 01/06/17 01/06/17 01/06/17 00:48 00:48 00:48 01:36 Temp 98.2 Pulse 83 81 Resp 18 10 B/P (MAP) 173/80 169/73 Pulse Ox 98 98 100 O2 Delivery Nasal Cannula Nasal Cannula Nasal Cannula Nasal Cannula O2 Flow Rate 4.0 4.00 4.00 3.00 01/06/17 03:29 Temp 98.1 Pulse 81 Resp 16 Pulse Ox 100 O2 Flow Rate 3.00 Blood Pressure Mean: 111 ECG Initial ECG Impression Date: January 06, 2017 Initial ECG Impression Time: 00:55 Initial ECG Rate: 82 Initial ECG Rhythm: Normal Sinus Initial ECG Comparisson: Unchanged Comment RAA; Consider anterior infarct Diagnostic Imaging Diagonstic Imaging: Xray Plain Films/CT/US/NM/MRI: chest ((+) cardiomegaly and pulmonary vascular congestion) Departure Impression Impression: Primary Impression: Non-cardiac chest pain Additional Impressions: Labile hypertension Chronic kidney disease with end stage renal failure on dialysis IDDM (insulin dependent diabetes mellitus) Disposition: 01 HOME, SELF-CARE Condition: Stable Departure-Patient Inst. Decision time for Depature: 03:17 Referrals: ISABEL HUMPHREYS MD (PCP/Family) Primary Care Physician Patient Instructions: Chest Pain That Is Not Caused by the Heart (DC) MARCELA MENDEZ DO January 06, 2017 01:08
[2017-01-06 01:15] LABS: BASOPHILS % (AUTO) 0 % (0-10); EOSINOPHILS # (AUTO) 0.1 10^3/uL (0.0-0.3); EOSINOPHILS % (AUTO) 2 % (0-10); LYMPHOCYTES # (AUTO) 0.6 X 10^3 (1.0-4.0); LYMPHOCYTES % (AUTO) 12 % (12-44); MEAN CORPUSCULAR HEMOGLOBIN 32 PG (25-34); MEAN CORPUSCULAR HGB CONC 33 G/DL (32-36); MEAN CORPUSCULAR VOLUME 98 FL (80-99); MEAN PLATELET VOLUME 9.7 FL (7.4-10.4); MONOCYTES # (AUTO) 0.4 X 10^3 (0.0-1.0); MONOCYTES % (AUTO) 8 % (0-12); NEUTROPHILS # (AUTO) 3.6 X 10^3 (1.8-7.8); NEUTROPHILS % (AUTO) 78 % (42-75); PLATELET COUNT 117 10^3/uL (130-400); RED CELL DISTRIBUTION WIDTH 14.9 % (10.0-14.5); WHITE BLOOD COUNT 4.6 10^3/uL (4.3-11.0)
[2017-01-06] MEDS ORDERED: LACTATED RINGERS 1,000 ML IV ONE (01:19)
[2017-01-06 01:23] LABS: INR 1.2 (0.8-1.4); PROTHROMBIN TIME PATIENT 14.8 SEC (12.2-14.7)
[2017-01-06] MEDS ORDERED: LORazepam INJ 2 MG/ML (ATIVAN) VIAL IVP ONE ×2 (01:30→02:45)
[2017-01-06 01:35] LABS: ALBUMIN 3.5 G/DL (3.2-4.5); BILIRUBIN,TOTAL 0.5 MG/DL (0.1-1.0); CALCIUM 8.2 MG/DL (8.5-10.1); CREATININE SERUM 2.94 MG/DL (0.60-1.30); MAGNESIUM 1.7 MG/DL (1.8-2.4); POTASSIUM 3.6 MMOL/L (3.6-5.0); TOTAL PROTEIN 6.4 G/DL (6.4-8.2)
[2017-01-06 01:36] VITALS: BP 169/73
[2017-01-06 01:38] LABS: PARTIAL THROMBOPLASTIN TIME > 200 SEC (24-35)
[2017-01-06] MEDS ORDERED: cloNIDine 0.1 MG (CATAPRES) TAB PO ONE (02:45)
[2017-01-06] MEDS ORDERED: oxyCODONE/APAP 5/325MG (PERCOCET 5) TABLET ONE (03:21)
[2017-01-06 03:29] VITALS: BP 184/80
[2017-01-06] MEDS ORDERED: oxyCODONE/APAP 5/325MG (PERCOCET 5) TABLET PO ONE (03:30)
--- NOTE | 2017-01-06 08:26 | Diagnostic Imaging Report ---
EXAMINATION: Portable upright radiograph of the chest. INDICATION: Chest pain. Syncope. FINDINGS: The heart is markedly enlarged. There is pulmonary vascular congestion. No focal infiltrate. There is no effusion or pneumothorax. Mediastinum and casper appear unremarkable. Right internal jugular tunneled catheter is seen in place with the tip at the IMPRESSION: Cardiomegaly with pulmonary vascular congestion. Dictated by: Dictated on workstation # [id number]
== END 2017-01-06 03:31 | disposition home or self-care (01) ==
LOC: EDUNIT# 00:43 → ER 00:44
DX: R07.89 Other chest pain (principal); I51.7 Cardiomegaly; I12.0 Hypertensive chronic kidney disease with stage 5 chronic kidney disease or end stage renal disease; N18.6 End stage renal disease; Z99.2 Dependence on renal dialysis; E11.9 Type 2 diabetes mellitus without complications; Z79.4 Long term (current) use of insulin; Z79.899 Other long term (current) drug therapy; Z79.02 Long term (current) use of antithrombotics/antiplatelets; Z79.82 Long term (current) use of aspirin
CPT/HCPCS: 36415; 71010; 80053; 83690; 83735; 83880; 84484; 85025; 85610; 85730; 93005; 93041; 96374; 96376

== ENCOUNTER → 2017-01-18 | Emergency (ER) | payer MEDICARE, MEDICAID ==
[~2017-01-18] VITALS: Ht 157.5 cm; Wt 96.6 kg
--- NOTE | 2017-01-18 09:43 | Diagnostic Imaging Report ---
INDICATION: Abdominal pain. PA chest, supine and upright abdominal images were obtained. Right IJ central line tip projects over the right atrium. Left subclavian Port-A-Cath tip projects over the SVC. Heart size and pulmonary vascularity are within normal limits. Lungs are clear. There are no effusions or pneumothoraces. The gallbladder is surgically absent. Bowel gas pattern is normal. There are no pathologic masses or fluid collections seen. IMPRESSION: No acute abnormality seen in the abdomen. Dictated by: Dictated on workstation # [id number]
--- NOTE | 2017-01-18 10:50 | ED Abdominal Pain ---
General Chief Complaint: Abdominal/GI Problems Stated Complaint: ABD PAIN Nursing Triage Note: Pt co of abd pain, pt states has constipation Sepsis Screen: No Definite Risk Source of Information: Patient Exam Limitations: No Limitations History of Present Illness Time Seen By Provider: 10:47 Initial Comments To ER with diffuse abdominal pain. She states she's been constipated for 3 or 4 days and feels as though she has a fecal impaction which she has had before. She does receive dialysis Wednesday and has not yet had it today. She is on chronic pain medication for her bad back and fibromyalgia. Timing/Duration: 2-3 Days Severity/Quality: Cramping Location: Generalized Abdomen Radiation: No Radiation Activities at Onset: None Allergies and Home Medications Allergies Coded Allergies: propoxyphene (Verified Allergy, Mild, DIZZINESS, 02/20/14) codeine (Verified Allergy, Unknown, CAN TAKE OXYCODONE, 02/20/14) esomeprazole (Verified Allergy, Unknown, 02/20/14) ketorolac (Verified Allergy, Unknown, PT TAKES ASPIRIN AT HOME, 02/20/14) levofloxacin (Verified Allergy, Unknown, 02/20/14) promethazine (Verified Allergy, Unknown, 02/20/14) Uncoded Allergies: TAPE (Adverse Reaction, Mild, RASH, 11/23/14) Home Medications Albuterol Sulfate 8.5 Gm Hfa.aer.ad, 2 PUFF INH Q4H PRN for SHORTNESS OF BREATH, (Reported) Aspirin 81 Mg Tablet.dr, 81 MG PO DAILY, (Reported) Budesonide/Formoterol Fumarate 10.2 Gm Hfa.aer.ad, 2 PUFF INH BID, (Reported) Cephalexin 500 Mg Capsule, 500 MG PO BID, #14 Prescribed by: VERNON FLORES on 08/24/16 1847 Clopidogrel Bisulfate 75 Mg Tablet, 75 MG PO HS, (Reported) Cyanocobalamin 50 Mcg Lozenge, 50 MCG PO DAILY, (Reported) Doxazosin Mesylate 4 Mg Tablet, 4 MG PO DAILY, (Reported) Ezetimibe 10 Mg Tablet, 10 MG PO HS, (Reported) Furosemide 40 Mg Tablet, 40 MG PO DAILY, (Reported) Gabapentin 300 Mg Capsule, 300 MG PO TID, (Reported) Gentamicin Sulfate 5 Ml Drops, 1 DROP OU Q6H PRN for ALLERGIES, (Reported) Ibuprofen 800 Mg Tablet, 800 MG PO BID PRN for PAIN, (Reported) Insulin Aspart 100 Unit/1 Ml Susp, SQ UD, (Reported) 201-250 = 2 UNITS 251-300 = 4 UNITS 301-350 = 6 UNITS 351-400 = 8 UNITS IF > THAN 400, CALL PHYSICIAN Insuln Asp Prt/Insulin Aspart 300 Units/3 Ml Solution, 10 UNITS SQ HS, (Reported ) Insuln Asp Prt/Insulin Aspart 300 Units/3 Ml Solution, 30 UNITS SC DAILY, ( Reported) Isosorbide Mononitrate 30 Mg Tab.er.24h, 15 MG PO HS, (Reported) TAKES 1/2 (30MG) TABLET Levothyroxine Sodium 50 Mcg Tablet, 50 MCG PO DAILY, (Reported) Lorazepam 0.5 Mg Tablet, 0.5 MG PO TID PRN for ANXIETY, (Reported) Metoprolol Succinate 200 Mg Tab.er.24h, 200 MG PO DAILY, (Reported) Montelukast Sodium 10 Mg Tablet, 10 MG PO HS, (Reported) Nitroglycerin 0.4 Mg Tab.subl, 0.4 MG SL UD PRN for CHEST PAIN, (Reported) PLACE 1 TABLET UNDER TONGUE EVERY 5 MINUTES X 3 DOSES NEEDED FOR CHEST PAIN Nystatin 15 Gm Powder, TOP BID PRN for RASH, (Reported) Omeprazole 40 Mg Capsule.dr, 40 MG PO DAILY, (Reported) Ondansetron HCl 4 Mg Tablet, 4 MG SL TID PRN for NAUSEA, (Reported) Oxycodone HCl/Acetaminophen 1 Each Tablet, 1 TAB PO Q6H PRN for PAIN, (Reported) Review of Systems Constitutional: see HPI EENTM: No Symptoms Reported Respiratory: No Symptoms Reported Gastrointestinal: See HPI, Abdominal Pain, Constipated Genitourinary: No Symptoms Reported Musculoskeletal: no symptoms reported Skin: no symptoms reported Psychiatric/Neurological: No Symptoms Reported Endocrine: No Symptoms Reported Past Mjfrnlg-Wnhmkz-Wurwyl Hx Patient Social History Alcohol Use: Denies Use Recreational Drug Use: No Smoking Status: Never a Smoker Recent Foreign Travel: No Contact w/Someone Who Travel: No Recent Infectious Disease Expo: No Recent Hopitalizations: No Immunizations Up To Date Tetanus Booster (TDap): Unknown PED Vaccines UTD: Yes Date of Pneumonia Vaccine: Feb 04, 2011 Date of Influenza Vaccine: Jun 08, 2017 Seasonal Allergies Seasonal Allergies: Yes Surgeries HX Surgeries: Yes Surgeries: Abdominal, Appendectomy, Arteriovenous Shunt, Cardiac, Coronary Stent, Dialysis, Eye Surgery, Gallbladder, Hysterectomy, Oophorectomy, Orthopedic, Vascular Surgery Respiratory Hx Respiratory Disorders: Yes Respiratory Disorders: Asthma, COPD Cardiovascular Hx Cardiac Disorders: Yes Cardiac Disorders: Hypertension Neurological Hx Neurological Disorders: Yes Neurological Disorders: Stroke Reproductive System Hx Reproductive Disorders: Yes Sexually Transmitted Disease: No HIV/AIDS: No 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 Genitourinary Hx Genitourinary Disorders: Yes Genitourinary Disorders: Renal Failure, Dialysis Gastrointestinal Hx Gastrointestinal Disorders: Yes (SPASTIC COLON) Gastrointestinal Disorders: Gastroesophageal Reflux, Diverticulosis, Pancreatitis Musculoskeletal Hx Musculoskeletal Disorders: Yes (SCIATICA CHRONIC, RIGHT ARM FX 2015-CHRONIC RIGHT ARM PAIN ) Musculoskeletal Disorders: Arthritis, Fibromyalgia, Chronic Back Pain, Fractures Endocrine Hx Endocrine Disorders: Yes Endocrine Disorders: Diabetes, Insulin dep, Hypothyroidsim HEENT HX ENT Disorders: Yes (HX RETINAL BLOOD VESSELS RUPTURING ) HEENT Disorders: Cataract Cancer Hx Cancer: No Psychosocial Hx Psychiatric Problems: Yes (PANIC ATTACKS) Behavioral Health Disorders: Anxiety Integumentary HX Skin/Integumentary Disorder: Yes (HX MRSA ) Blood Transfusions Hx Blood Disorders: Yes (being treated by dr. rogel for low blood counts/ANEMIA) Adverse Reaction to a Blood Tr: No (does not want to receieve blood products) Family Medical History Family Medial History: Cancer 03 MOTHER (OVARIAN CANCER) Congestive heart failure 09 BROTHER ( OF CHF) DVT 09 SISTER FH: COPD (chronic obstructive pulmonary disease) 09 SISTER FH: bipolar disorder 09 BROTHER FH: emphysema 03 FATHER FHx: multiple sclerosis 09 BROTHER Family history: Cardiovascular disease 03 FATHER, Onset:Unknown Family history: Diabetes mellitus 03 MOTHER 09 BROTHER Family history: Hypertension 09 SISTER (ACTUALLY HAS LOW BLOOD PRESSURE NOT HIGH) Physical Exam Vital Signs VS - Last 72 Hours, by Label 01/18/17 08:45 Temp 98.0 Pulse 68 Resp 18 B/P (MAP) 161/82 Pulse Ox 99 Capillary Refill : Less Than 3 Seconds General Appearance: WD/WN, no apparent distress HEENT: PERRL/EOMI, normal ENT inspection Neck: non-tender, full range of motion Respiratory: normal breath sounds, no respiratory distress, no accessory muscle use Cardiovascular: regular rate, rhythm, no murmur Gastrointestinal: normal bowel sounds, soft, tenderness (diffusely) Rectal: other (fecal impaction digitally removed) Extremities: normal range of motion, non-tender Neurologic/Psychiatric: alert, normal mood/affect, oriented x 3 Skin: normal color, warm/dry Progress/Results/Core Measures Results/Orders Vital Signs/I&O Vital Sign - Last 12Hours 01/18/17 08:45 Temp 98.0 Pulse 68 Resp 18 B/P (MAP) 161/82 Pulse Ox 99 Blood Pressure Mean: 108 Departure Communication Progress Notes I did offer her an injection of Relistor. She declined stating last time "it made me mess myself" Impression Impression: Primary Impression: Constipation Additional Impression: Fecal impaction Disposition: HOME, SELF-CARE Condition: Stable Departure-Patient Inst. Decision time for Depature: 10:49 Referrals: ISABEL HUMPHREYS MD (PCP/Family) Primary Care Physician Patient Instructions: Constipation, Adult (DC) Add. Discharge Instructions: 1. Take 2 capfuls of MiraLAX dissolved in a large glass of water each today and tomorrow 2. Do not miss her dialysis appointment today. All discharge instructions reviewed with patient and/or family. Voiced understanding. [employer]HS[employer] January 18, 2017 10:50
[2017-01-18 11:17] VITALS: BP 161/82
== END | disposition home or self-care (01) ==
LOC: EDUNIT# 08:42 → ER 08:44
DX: K56.41 Fecal impaction (principal); M79.7 Fibromyalgia; E11.9 Type 2 diabetes mellitus without complications; I12.0 Hypertensive chronic kidney disease with stage 5 chronic kidney disease or end stage renal disease; N18.6 End stage renal disease; J44.9 Chronic obstructive pulmonary disease, unspecified; Z79.02 Long term (current) use of antithrombotics/antiplatelets; Z79.4 Long term (current) use of insulin; Z79.82 Long term (current) use of aspirin; Z79.899 Other long term (current) drug therapy; Z99.2 Dependence on renal dialysis; Z95.5 Presence of coronary angioplasty implant and graft
CPT/HCPCS: 74022; 99282

== ENCOUNTER 2017-01-29 10:09 | Emergency (ER) | payer MEDICARE, MEDICAID ==
[~2017-01-29] VITALS: Ht 167.6 cm; Wt 104.3 kg
[2017-01-29 10:28] LABS: BASOPHILS % (AUTO) 0 % (0-10); EOSINOPHILS # (AUTO) 0.1 10^3/uL (0.0-0.3); EOSINOPHILS % (AUTO) 2 % (0-10); LYMPHOCYTES # (AUTO) 0.5 X 10^3 (1.0-4.0); LYMPHOCYTES % (AUTO) 11 % (12-44); MEAN CORPUSCULAR HEMOGLOBIN 32 PG (25-34); MEAN CORPUSCULAR HGB CONC 32 G/DL (32-36); MEAN CORPUSCULAR VOLUME 98 FL (80-99); MEAN PLATELET VOLUME 10.4 FL (7.4-10.4); MONOCYTES # (AUTO) 0.4 X 10^3 (0.0-1.0); MONOCYTES % (AUTO) 9 % (0-12); NEUTROPHILS # (AUTO) 3.2 X 10^3 (1.8-7.8); NEUTROPHILS % (AUTO) 78 % (42-75); RED BLOOD COUNT 3.57 10^6/uL (4.35-5.85); RED CELL DISTRIBUTION WIDTH 13.6 % (10.0-14.5); WHITE BLOOD COUNT 4.1 10^3/uL (4.3-11.0)
--- NOTE | 2017-01-29 10:36 | Diagnostic Imaging Report ---
EXAMINATION: Portable upright radiograph of the chest. INDICATION: Chest pain. FINDINGS: The heart is moderately enlarged. There is mild pulmonary vascular congestion. No significant effusion or pneumothorax is seen. Minimal fluid in the minor fissure is noted. The infusion port and right internal jugular large bore venous catheter are seen without change from 01/18/2017. IMPRESSION: Cardiomegaly with pulmonary vascular congestion. Dictated by: Dictated on workstation # [id number]
[2017-01-29 10:37] LABS: PLATELET COUNT 91 10^3/uL (130-400)
[2017-01-29 10:49] LABS: ALANINE AMINOTRANSFERASE 8 U/L (0-55); ALBUMIN 3.4 G/DL (3.2-4.5); ANION GAP 10 MMOL/L (5-14); ASPARTATE AMINO TRANSFERASE 22 U/L (5-34); BILIRUBIN,TOTAL 0.5 MG/DL (0.1-1.0); BLOOD UREA NITROGEN 23 MG/DL (7-18); BUN/CREATININE RATIO 9; CALCIUM 8.9 MG/DL (8.5-10.1); CARBON DIOXIDE 29 MMOL/L (21-32); CHLORIDE 96 MMOL/L (98-107); CREATININE SERUM 2.66 MG/DL (0.60-1.30); GFR ESTIMATED 18; GLUCOSE 317 MG/DL (70-105); POTASSIUM 4.8 MMOL/L (3.6-5.0); SODIUM 135 MMOL/L (135-145); TOTAL PROTEIN 6.6 G/DL (6.4-8.2)
[2017-01-29 10:55] LABS: TROPONIN I < 0.30 NG/ML (<0.30)
--- NOTE | 2017-01-29 11:07 | ED Chest Pain ---
General Chief Complaint: Chest Pain Stated Complaint: CHEST PAIN Source: patient Exam Limitations: no limitations History of Present Illness Time seen by provider: 11:05 Initial Comments The patient is a 66-year-old white female who presents by ambulance with complaints of chest pain. The patient states that while sitting quietly at home at about 0800 she began having chest pain. She took a nitroglycerin with modest relief of pain. She took a total of 3 nitros by the time the ambulance arrived. She has kidney failure and dialyzes 3 times weekly. Today is her dialysis today. She continues to have pain although not as intensely as prior to arrival. She had a coronary angiogram performed by EARL Roper in January 2016 which showed multivessel coronary artery disease and small vessel disease and stenting was performed at that time and other vessels with near occlusion were not amenable to stenting. She states that over time she has had a total of 11 stents. Timing/Duration: 1-3 hours Severity/Quality: moderate Location: substernal, central Radiation: no radiation Activities at Onset: none Allergies and Home Medications Allergies Coded Allergies: propoxyphene (Verified Allergy, Mild, DIZZINESS, 02/20/14) codeine (Verified Allergy, Unknown, CAN TAKE OXYCODONE, 02/20/14) esomeprazole (Verified Allergy, Unknown, 02/20/14) ketorolac (Verified Allergy, Unknown, PT TAKES ASPIRIN AT HOME, 02/20/14) levofloxacin (Verified Allergy, Unknown, 02/20/14) promethazine (Verified Allergy, Unknown, 02/20/14) Uncoded Allergies: TAPE (Adverse Reaction, Mild, RASH, 11/23/14) Home Medications Albuterol Sulfate 8.5 Gm Hfa.aer.ad, 2 PUFF INH Q4H PRN for SHORTNESS OF BREATH, (Reported) Aspirin 81 Mg Tablet.dr, 81 MG PO DAILY, (Reported) Budesonide/Formoterol Fumarate 10.2 Gm Hfa.aer.ad, 2 PUFF INH BID, (Reported) Cephalexin 500 Mg Capsule, 500 MG PO BID, #14 Prescribed by: VERNON FLORES on 08/24/16 5008 Clopidogrel Bisulfate 75 Mg Tablet, 75 MG PO HS, (Reported) Cyanocobalamin 50 Mcg Lozenge, 50 MCG PO DAILY, (Reported) Doxazosin Mesylate 4 Mg Tablet, 4 MG PO DAILY, (Reported) Ezetimibe 10 Mg Tablet, 10 MG PO HS, (Reported) Furosemide 40 Mg Tablet, 40 MG PO DAILY, (Reported) Gabapentin 300 Mg Capsule, 300 MG PO TID, (Reported) Gentamicin Sulfate 5 Ml Drops, 1 DROP OU Q6H PRN for ALLERGIES, (Reported) Ibuprofen 800 Mg Tablet, 800 MG PO BID PRN for PAIN, (Reported) Insulin Aspart 100 Unit/1 Ml Susp, SQ UD, (Reported) 201-250 = 2 UNITS 251-300 = 4 UNITS 301-350 = 6 UNITS 351-400 = 8 UNITS IF > THAN 400, CALL PHYSICIAN Insuln Asp Prt/Insulin Aspart 300 Units/3 Ml Solution, 10 UNITS SQ HS, (Reported ) Insuln Asp Prt/Insulin Aspart 300 Units/3 Ml Solution, 30 UNITS SC DAILY, ( Reported) Isosorbide Mononitrate 30 Mg Tab.er.24h, 15 MG PO HS, (Reported) TAKES 1/2 (30MG) TABLET Levothyroxine Sodium 50 Mcg Tablet, 50 MCG PO DAILY, (Reported) Lorazepam 0.5 Mg Tablet, 0.5 MG PO TID PRN for ANXIETY, (Reported) Metoprolol Succinate 200 Mg Tab.er.24h, 200 MG PO DAILY, (Reported) Montelukast Sodium 10 Mg Tablet, 10 MG PO HS, (Reported) Nitroglycerin 0.4 Mg Tab.subl, 0.4 MG SL UD PRN for CHEST PAIN, (Reported) PLACE 1 TABLET UNDER TONGUE EVERY 5 MINUTES X 3 DOSES NEEDED FOR CHEST PAIN Nystatin 15 Gm Powder, TOP BID PRN for RASH, (Reported) Omeprazole 40 Mg Capsule.dr, 40 MG PO DAILY, (Reported) Ondansetron HCl 4 Mg Tablet, 4 MG SL TID PRN for NAUSEA, (Reported) Oxycodone HCl/Acetaminophen 1 Each Tablet, 1 TAB PO Q6H PRN for PAIN, (Reported) Review of Systems Constitutional: see HPI EENTM: No Symptoms Reported Respiratory: No Symptoms Reported Cardiovascular: See HPI, Chest Pain Gastrointestinal: No Symptoms Reported Genitourinary: No Symptoms Reported Musculoskeletal: no symptoms reported Skin: no symptoms reported Psychiatric/Neurological: No Symptoms Reported Endocrine: No Symptoms Reported Hematologic/Lymphatic: No Symptoms Reported Past Vqnwncw-Yqoxbn-Schtrc Hx Patient Social History Alcohol Use: Denies Use Recreational Drug Use: No Smoking Status: Never a Smoker Recent Hopitalizations: No Immunizations Up To Date Tetanus Booster (TDap): Unknown PED Vaccines UTD: Yes Date of Pneumonia Vaccine: Feb 04, 2011 Date of Influenza Vaccine: Jun 08, 2017 Seasonal Allergies Seasonal Allergies: Yes Surgeries HX Surgeries: Yes Surgeries: Abdominal, Appendectomy, Arteriovenous Shunt, Cardiac, Coronary Stent, Dialysis, Eye Surgery, Gallbladder, Hysterectomy, Oophorectomy, Orthopedic, Vascular Surgery Respiratory Hx Respiratory Disorders: Yes Respiratory Disorders: Asthma, COPD Cardiovascular Hx Cardiac Disorders: Yes Cardiac Disorders: Hypertension Neurological Hx Neurological Disorders: Yes Neurological Disorders: Stroke Reproductive System Hx Reproductive Disorders: Yes Sexually Transmitted Disease: No HIV/AIDS: No 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 Genitourinary Hx Genitourinary Disorders: Yes Genitourinary Disorders: Renal Failure, Dialysis Gastrointestinal Hx Gastrointestinal Disorders: Yes (SPASTIC COLON) Gastrointestinal Disorders: Gastroesophageal Reflux, Diverticulosis, Pancreatitis Musculoskeletal Hx Musculoskeletal Disorders: Yes (SCIATICA CHRONIC, RIGHT ARM FX 2015-CHRONIC RIGHT ARM PAIN ) Musculoskeletal Disorders: Arthritis, Fibromyalgia, Chronic Back Pain, Fractures Endocrine Hx Endocrine Disorders: Yes Endocrine Disorders: Diabetes, Insulin dep, Hypothyroidsim HEENT HX ENT Disorders: Yes (HX RETINAL BLOOD VESSELS RUPTURING ) HEENT Disorders: Cataract Cancer Hx Cancer: No Psychosocial Hx Psychiatric Problems: Yes (PANIC ATTACKS) Behavioral Health Disorders: Anxiety Integumentary HX Skin/Integumentary Disorder: Yes (HX MRSA ) Blood Transfusions Hx Blood Disorders: Yes (being treated by dr. rogel for low blood counts/ANEMIA) Adverse Reaction to a Blood Tr: No (does not want to receieve blood products) Family Medical History Family Medial History: Cancer 03 MOTHER (OVARIAN CANCER) Congestive heart failure 09 BROTHER ( OF CHF) DVT 09 SISTER FH: COPD (chronic obstructive pulmonary disease) 09 SISTER FH: bipolar disorder 09 BROTHER FH: emphysema 03 FATHER FHx: multiple sclerosis 09 BROTHER Family history: Cardiovascular disease 03 FATHER, Onset:Unknown Family history: Diabetes mellitus 03 MOTHER 09 BROTHER Family history: Hypertension 09 SISTER (ACTUALLY HAS LOW BLOOD PRESSURE NOT HIGH) Physical Exam Vital Signs Vital Sign - Last 12Hours 01/29/17 10:15 O2 Delivery Room Air Capillary Refill : Less Than 3 Seconds General Appearance: Mild Distress, Other (appears older than stated age) HEENT: Normal ENT Inspection Neck: Normal Inspection Respiratory: Chest Non Tender, Lungs Clear, Normal Breath Sounds, No Accessory Muscle Use, No Respiratory Distress Cardiovascular: Regular Rate, Rhythm, No Edema, No Gallop, No JVD, No Murmur, Normal Peripheral Pulses Gastrointestinal: Normal Bowel Sounds, No Organomegaly, No Pulsatile Mass, Non Tender Extremity: Other (distal erythema in the distribution of a Crew sock. The skin has a rough alligator texture to it.) Neurologic/Psychiatric: Alert, Oriented x3, No Motor/Sensory Deficits, Normal Mood/Affect Skin: Normal Color, Warm/Dry Progress/Results/Core Measures Results/Orders Lab Results Laboratory Tests Test 01/29/17 10:15 Range/Units White Blood Count 4.1 L 4.3-11.0 10^3/uL Red Blood Count 3.57 L 4.35-5.85 10^6/uL Hemoglobin 11.3 L 11.5-16.0 G/DL Hematocrit 35 35-52 % Mean Corpuscular Volume 98 80-99 FL Mean Corpuscular Hemoglobin 32 25-34 PG Mean Corpuscular Hemoglobin Concent 32 32-36 G/DL Red Cell Distribution Width 13.6 10.0-14.5 % Platelet Count 91 L 130-400 10^3/uL Mean Platelet Volume 10.4 7.4-10.4 FL Neutrophils (%) (Auto) 78 H 42-75 % Lymphocytes (%) (Auto) 11 L 12-44 % Monocytes (%) (Auto) 9 0-12 % Eosinophils (%) (Auto) 2 0-10 % Basophils (%) (Auto) 0 0-10 % Neutrophils # (Auto) 3.2 1.8-7.8 X 10^3 Lymphocytes # (Auto) 0.5 L 1.0-4.0 X 10^3 Monocytes # (Auto) 0.4 0.0-1.0 X 10^3 Eosinophils # (Auto) 0.1 0.0-0.3 10^3/uL Basophils # (Auto) 0.0 0.0-0.1 10^3/uL Sodium Level 135 135-145 MMOL/L Potassium Level 4.8 3.6-5.0 MMOL/L Chloride Level 96 L 98-107 MMOL/L Carbon Dioxide Level 29 21-32 MMOL/L Anion Gap 10 5-14 MMOL/L Blood Urea Nitrogen 23 H 7-18 MG/DL Creatinine 2.66 H 0.60-1.30 MG/DL Estimat Glomerular Filtration Rate 18 BUN/Creatinine Ratio 9 Glucose Level 317 H 70-105 MG/DL Calcium Level 8.9 8.5-10.1 MG/DL Total Bilirubin 0.5 0.1-1.0 MG/DL Aspartate Amino Transf (AST/SGOT) 22 5-34 U/L Alanine Aminotransferase (ALT/SGPT) 8 0-55 U/L Alkaline Phosphatase 113 40-136 U/L Troponin I < 0.30 <0.30 NG/ML Total Protein 6.6 6.4-8.2 G/DL Albumin 3.4 3.2-4.5 G/DL My Orders Orders - TREVOR TURCIOS MD Cbc With Automated Diff (01/29/17 10:19) Comprehensive Metabolic Panel (01/29/17 10:19) Troponin I (01/29/17 10:19) Chest 1 View, Ap/Pa Only (01/29/17 10:19) Ekg Tracing (01/29/17 10:19) Vital Signs/I&O Vital Sign - Last 12Hours 01/29/17 10:15 O2 Delivery Room Air Departure Communication Progress Notes 1110 discussed with EARL Roper. The issues are known small vessel disease and the need for dialysis. After consideration and it was recommended that she be transferred to [place] where both might be accomplished. [address] Jose Alfredo Pacheco cardiology at [facility] in [place] who agrees that the patient is a candidate for transfer for acute angiography. Discussed with hospitalist at [facility] who will admit the patient and arrange for dialysis. Impression Impression: Primary Impression: Angina pectoris associated with type 2 diabetes mellitus Additional Impression: chronic renal failure Disposition: XFER SHT-TRM HOSP Condition: Stable/Unchanged Transfer Transfer Time: 11:35 Transfer Facility: [facility] [place] Method of Transfer: EMS Departure-Patient Inst. Decision time for Depature: 11:16 Referrals: ISABEL HUMPHREYS MD (PCP/Family) Primary Care Physician TREVOR TURCIOS MD January 29, 2017 11:07
[2017-01-29] MEDS ORDERED: ONDANSETRON 4 MG/2 ML (SDV) Z0FRAN ONE (11:43)
[2017-01-29] MEDS ORDERED: morphine INJ 10 MG/ML 1ML (SYR OR VIAL) IVP ONE (11:45)
[2017-01-29] MEDS ORDERED: ONDANSETRON 4 MG/2 ML (SDV) Z0FRAN IVP ONE (12:00)
[2017-01-29 13:01] VITALS: BP 178/92
== END 2017-01-29 13:01 | disposition short-term general hospital (02) ==
LOC: EDUNIT# 10:09 → ER 10:10
DX: I25.119 Atherosclerotic heart disease of native coronary artery with unspecified angina pectoris (principal); I12.0 Hypertensive chronic kidney disease with stage 5 chronic kidney disease or end stage renal disease; N18.6 End stage renal disease; E11.9 Type 2 diabetes mellitus without complications; I51.7 Cardiomegaly; J44.9 Chronic obstructive pulmonary disease, unspecified; Z79.4 Long term (current) use of insulin; Z79.82 Long term (current) use of aspirin; Z79.02 Long term (current) use of antithrombotics/antiplatelets; Z79.899 Other long term (current) drug therapy; Z99.2 Dependence on renal dialysis; Z95.5 Presence of coronary angioplasty implant and graft
CPT/HCPCS: 36415; 71010; 80053; 84484; 85025; 93005; 96374

== ENCOUNTER 2017-03-19 03:19 | Emergency (ER) | payer MEDICARE, MEDICAID ==
[~2017-03-19] VITALS: Ht 157.5 cm; Wt 96.6 kg
--- OUTSIDE RECORDS SUMMARY | 2017-03-19 03:26 | XMS REPORT | Continuity of Care Document ---
Author Author [facility] Organization [facility] Address Unknown Phone Unavailable Care Team Providers Care Planimeter Operator Name Role Phone Panda Obregon PCP [phone] Source Comments Some departments are not documenting in the electronic medical record. If you do not see the information that you expected, contact Release of Information in the Health Information Management department at [phone] for further assistance in locating additional records.[facility] Active Allergies and Adverse Reactions Not on File Current Medications Not on file Active Problems Not on file Social History Tobacco Use Types Packs/Day Years Used Date Never Assessed Plan of Care Health Maintenance Due Date Last Done Comments Hepatitis C Screening 1951 Physical (Comprehensive) 1958 Exam Pertussis Vaccine 1962 Tetanus Vaccine 1968 Breast Cancer Screening 1991 Colorectal Cancer 2001 Screening Shingles Vaccine 2011 Osteoporosis Screening 2016 Prevnar/Pneumovax (#1) 2016 Influenza Vaccine 05/07/2017 Results from Last 3 Months Not on file
[2017-03-19 03:30] VITALS: BP 182/90
[2017-03-19] MEDS ORDERED: fentaNYL INJECTION 100 MCG/2 ML AMP IVP ONE ×2 (03:45→04:45)
[2017-03-19 04:29] LABS: BASOPHILS % (AUTO) 0 % (0-10); EOSINOPHILS # (AUTO) 0.1 10^3/uL (0.0-0.3); EOSINOPHILS % (AUTO) 3 % (0-10); LYMPHOCYTES # (AUTO) 0.5 X 10^3 (1.0-4.0); LYMPHOCYTES % (AUTO) 12 % (12-44); MEAN CORPUSCULAR HEMOGLOBIN 31 PG (25-34); MEAN CORPUSCULAR HGB CONC 32 G/DL (32-36); MEAN CORPUSCULAR VOLUME 99 FL (80-99); MEAN PLATELET VOLUME 10.2 FL (7.4-10.4); MONOCYTES # (AUTO) 0.4 X 10^3 (0.0-1.0); MONOCYTES % (AUTO) 10 % (0-12); NEUTROPHILS # (AUTO) 2.9 X 10^3 (1.8-7.8); NEUTROPHILS % (AUTO) 75 % (42-75); PLATELET COUNT 84 10^3/uL (130-400); RED BLOOD COUNT 3.39 10^6/uL (4.35-5.85); RED CELL DISTRIBUTION WIDTH 13.5 % (10.0-14.5); WHITE BLOOD COUNT 3.9 10^3/uL (4.3-11.0)
[2017-03-19 04:30] VITALS: BP 195/88
[2017-03-19] MEDS ORDERED: ONDANSETRON 4 MG/2 ML (SDV) Z0FRAN IVP ONE (04:30)
[2017-03-19] MEDS ORDERED: FAMOTIDINE 20MG/2ML IV (PEPCID) IVP ONE (04:30)
[2017-03-19] MEDS ORDERED: LIDOCAINE 2% VISCOUS 15 ML UDC PO ONE (04:30)
[2017-03-19] MEDS ORDERED: ANTACID SUSP 30 ML UDC (MYLANTA) PO ONE (04:30)
[2017-03-19 04:38] LABS: INR 1.1 (0.8-1.4)
[2017-03-19 04:49] LABS: ALANINE AMINOTRANSFERASE 8 U/L (0-55); ALBUMIN 3.2 GM/DL (3.2-4.5); ANION GAP 10 MMOL/L (5-14); ASPARTATE AMINO TRANSFERASE 13 U/L (5-34); BILIRUBIN,TOTAL 0.4 MG/DL (0.1-1.0); BLOOD UREA NITROGEN 23 MG/DL (7-18); BUN/CREATININE RATIO 9; CALCIUM 8.2 MG/DL (8.5-10.1); CARBON DIOXIDE 28 MMOL/L (21-32); CHLORIDE 97 MMOL/L (98-107); CREATININE SERUM 2.58 MG/DL (0.60-1.30); GFR ESTIMATED 19; GLUCOSE 196 MG/DL (70-105); MAGNESIUM 1.8 MG/DL (1.8-2.4); POTASSIUM 4.6 MMOL/L (3.6-5.0); SODIUM 135 MMOL/L (135-145); TOTAL PROTEIN 6.4 GM/DL (6.4-8.2)
[2017-03-19 04:50] VITALS: BP 186/89
--- NOTE | 2017-03-19 04:53 | ED Chest Pain ---
General Chief Complaint: Chest Pain Stated Complaint: CHEST PAIN Nursing Triage Note: pt complaint chest pain states woke up with it, Nursing Sepsis Screen: No Definite Risk Source: patient Exam Limitations: no limitations History of Present Illness Time seen by provider: 03:21 Initial Comments This 66-year-old woman presents to emergency room with chest pain since about 02 :00. She took nitroglycerin times one which did not improve her pain. She activated EMS. EMS administered morphine 4 mg, Zofran 4 mg, aspirin 324 mg, and nitroglycerin times one. Patient reports her pain is still an 8/10 during assessment. She has a long history of significant coronary artery disease and is in end-stage renal failure on dialysis. Dr. Obregon is her primary care provider. Dr. Ronaldo Xie is her portable router operator. Dr. Rogers at [facility] is her wreath inspector. Patient has associated symptoms of lightheadedness and nausea. Allergies and Home Medications Allergies Coded Allergies: propoxyphene (Verified Allergy, Mild, DIZZINESS, 02/20/14) codeine (Verified Allergy, Unknown, CAN TAKE OXYCODONE, 02/20/14) esomeprazole (Verified Allergy, Unknown, 02/20/14) ketorolac (Verified Allergy, Unknown, PT TAKES ASPIRIN AT HOME, 02/20/14) levofloxacin (Verified Allergy, Unknown, 02/20/14) promethazine (Verified Allergy, Unknown, 02/20/14) Uncoded Allergies: TAPE (Adverse Reaction, Mild, RASH, 11/23/14) Home Medications Albuterol Sulfate 8.5 Gm Hfa.aer.ad, 2 PUFF INH Q4H PRN for SHORTNESS OF BREATH, (Reported) Aspirin 81 Mg Tablet.dr, 81 MG PO DAILY, (Reported) Budesonide/Formoterol Fumarate 10.2 Gm Hfa.aer.ad, 2 PUFF INH BID, (Reported) Cephalexin 500 Mg Capsule, 500 MG PO BID, #14 Prescribed by: VERNON FLORES on 08/24/16 6341 Clopidogrel Bisulfate 75 Mg Tablet, 75 MG PO HS, (Reported) Cyanocobalamin 50 Mcg Lozenge, 50 MCG PO DAILY, (Reported) Doxazosin Mesylate 4 Mg Tablet, 4 MG PO DAILY, (Reported) Ezetimibe 10 Mg Tablet, 10 MG PO HS, (Reported) Furosemide 40 Mg Tablet, 40 MG PO DAILY, (Reported) Gabapentin 300 Mg Capsule, 300 MG PO TID, (Reported) Gentamicin Sulfate 5 Ml Drops, 1 DROP OU Q6H PRN for ALLERGIES, (Reported) Ibuprofen 800 Mg Tablet, 800 MG PO BID PRN for PAIN, (Reported) Insulin Aspart 100 Unit/1 Ml Susp, SQ UD, (Reported) 201-250 = 2 UNITS 251-300 = 4 UNITS 301-350 = 6 UNITS 351-400 = 8 UNITS IF > THAN 400, CALL PHYSICIAN Insuln Asp Prt/Insulin Aspart 300 Units/3 Ml Solution, 10 UNITS SQ HS, (Reported ) Insuln Asp Prt/Insulin Aspart 300 Units/3 Ml Solution, 30 UNITS SC DAILY, ( Reported) Isosorbide Mononitrate 30 Mg Tab.er.24h, 15 MG PO HS, (Reported) TAKES 1/2 (30MG) TABLET Levothyroxine Sodium 50 Mcg Tablet, 50 MCG PO DAILY, (Reported) Lorazepam 0.5 Mg Tablet, 0.5 MG PO TID PRN for ANXIETY, (Reported) Metoprolol Succinate 200 Mg Tab.er.24h, 200 MG PO DAILY, (Reported) Montelukast Sodium 10 Mg Tablet, 10 MG PO HS, (Reported) Nitroglycerin 0.4 Mg Tab.subl, 0.4 MG SL UD PRN for CHEST PAIN, (Reported) PLACE 1 TABLET UNDER TONGUE EVERY 5 MINUTES X 3 DOSES NEEDED FOR CHEST PAIN Nystatin 15 Gm Powder, TOP BID PRN for RASH, (Reported) Omeprazole 40 Mg Capsule.dr, 40 MG PO DAILY, (Reported) Ondansetron HCl 4 Mg Tablet, 4 MG SL TID PRN for NAUSEA, (Reported) Oxycodone HCl/Acetaminophen 1 Each Tablet, 1 TAB PO Q6H PRN for PAIN, (Reported) Review of Systems Constitutional: no symptoms reported EENTM: No Symptoms Reported Respiratory: See HPI, Shortness of Air Cardiovascular: See HPI Gastrointestinal: See HPI, Nausea Genitourinary: No Symptoms Reported Musculoskeletal: no symptoms reported Skin: no symptoms reported Psychiatric/Neurological: See HPI Endocrine: No Symptoms Reported Past Nxkidho-Rwuujl-Ptcetf Hx Patient Social History Recent Foreign Travel: No Contact w/Someone Who Travel: No Recent Infectious Disease Expo: No Recent Hopitalizations: No Immunizations Up To Date Tetanus Booster (TDap): Unknown PED Vaccines UTD: Yes Date of Pneumonia Vaccine: Feb 04, 2011 Date of Influenza Vaccine: Jun 08, 2017 Seasonal Allergies Seasonal Allergies: Yes Surgeries HX Surgeries: Yes Surgeries: Abdominal, Appendectomy, Arteriovenous Shunt, Cardiac, Coronary Stent, Dialysis, Eye Surgery, Gallbladder, Hysterectomy, Oophorectomy, Orthopedic, Vascular Surgery Respiratory Hx Respiratory Disorders: Yes Respiratory Disorders: Asthma, COPD Cardiovascular Hx Cardiac Disorders: Yes Cardiac Disorders: Coronary Artery Disease, Hypertension Neurological Hx Neurological Disorders: Yes Neurological Disorders: Stroke Reproductive System Hx Reproductive Disorders: Yes Sexually Transmitted Disease: No HIV/AIDS: 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 Genitourinary Hx Genitourinary Disorders: Yes Genitourinary Disorders: Renal Failure, Dialysis Gastrointestinal Hx Gastrointestinal Disorders: Yes (SPASTIC COLON) Gastrointestinal Disorders: Gastroesophageal Reflux, Diverticulosis, Pancreatitis Musculoskeletal Hx Musculoskeletal Disorders: Yes (SCIATICA CHRONIC, RIGHT ARM FX 2015-CHRONIC RIGHT ARM PAIN ) Musculoskeletal Disorders: Arthritis, Fibromyalgia, Chronic Back Pain, Fractures Endocrine Hx Endocrine Disorders: Yes Endocrine Disorders: Diabetes, Insulin dep, Hypothyroidsim HEENT HX ENT Disorders: Yes (HX RETINAL BLOOD VESSELS RUPTURING ) HEENT Disorders: Cataract Cancer Hx Cancer: No Psychosocial Hx Psychiatric Problems: Yes (PANIC ATTACKS) Behavioral Health Disorders: Anxiety Integumentary HX Skin/Integumentary Disorder: Yes (HX MRSA ) Blood Transfusions Hx Blood Disorders: Yes (being treated by dr. rogel for low blood counts/ANEMIA) Adverse Reaction to a Blood Tr: No (does not want to receieve blood products) Family Medical History Family Medial History: Cancer 03 MOTHER (OVARIAN CANCER) Congestive heart failure 09 BROTHER ( OF CHF) DVT 09 SISTER FH: COPD (chronic obstructive pulmonary disease) 09 SISTER FH: bipolar disorder 09 BROTHER FH: emphysema 03 FATHER FHx: multiple sclerosis 09 BROTHER Family history: Cardiovascular disease 03 FATHER, Onset:Unknown Family history: Diabetes mellitus 03 MOTHER 09 BROTHER Family history: Hypertension 09 SISTER (ACTUALLY HAS LOW BLOOD PRESSURE NOT HIGH) Physical Exam Vital Signs Vital Sign - Last 12Hours 03/19/17 03:28 Temp 97.9 Pulse 61 Resp 20 B/P (MAP) 194/89 Pulse Ox 99 O2 Delivery Nasal Cannula O2 Flow Rate 2.00 Capillary Refill : Less Than 3 Seconds General Appearance: WD/WN, Moderate Distress HEENT: PERRL/EOMI, Normal ENT Inspection, Pharynx Normal Neck: Normal Inspection Respiratory: Lungs Clear, Normal Breath Sounds, No Accessory Muscle Use, No Respiratory Distress Cardiovascular: Regular Rate, Rhythm, No Murmur Gastrointestinal: Normal Bowel Sounds, Non Tender, Soft Extremity: Other (mild lower extremity edema) Neurologic/Psychiatric: Alert, Oriented x3, No Motor/Sensory Deficits, 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, Other (anxious) Skin: Normal Color, Warm/Dry Progress/Results/Core Measures Results/Orders Lab Results Laboratory Tests Test 03/19/17 04:15 Range/Units White Blood Count 3.9 L 4.3-11.0 10^3/uL Red Blood Count 3.39 L 4.35-5.85 10^6/uL Hemoglobin 10.6 L 11.5-16.0 G/DL Hematocrit 34 L 35-52 % Mean Corpuscular Volume 99 80-99 FL Mean Corpuscular Hemoglobin 31 25-34 PG Mean Corpuscular Hemoglobin Concent 32 32-36 G/DL Red Cell Distribution Width 13.5 10.0-14.5 % Platelet Count 84 L 130-400 10^3/uL Mean Platelet Volume 10.2 7.4-10.4 FL Neutrophils (%) (Auto) 75 42-75 % Lymphocytes (%) (Auto) 12 12-44 % Monocytes (%) (Auto) 10 0-12 % Eosinophils (%) (Auto) 3 0-10 % Basophils (%) (Auto) 0 0-10 % Neutrophils # (Auto) 2.9 1.8-7.8 X 10^3 Lymphocytes # (Auto) 0.5 L 1.0-4.0 X 10^3 Monocytes # (Auto) 0.4 0.0-1.0 X 10^3 Eosinophils # (Auto) 0.1 0.0-0.3 10^3/uL Basophils # (Auto) 0.0 0.0-0.1 10^3/uL Prothrombin Time 14.0 12.2-14.7 SEC INR Comment 1.1 0.8-1.4 Activated Partial Thromboplast Time 44 H 24-35 SEC Sodium Level 135 135-145 MMOL/L Potassium Level 4.6 3.6-5.0 MMOL/L Chloride Level 97 L 98-107 MMOL/L Carbon Dioxide Level 28 21-32 MMOL/L Anion Gap 10 5-14 MMOL/L Blood Urea Nitrogen 23 H 7-18 MG/DL Creatinine 2.58 H 0.60-1.30 MG/DL Estimat Glomerular Filtration Rate 19 BUN/Creatinine Ratio 9 Glucose Level 196 H 70-105 MG/DL Calcium Level 8.2 L 8.5-10.1 MG/DL Magnesium Level 1.8 1.8-2.4 MG/DL Total Bilirubin 0.4 0.1-1.0 MG/DL Aspartate Amino Transf (AST/SGOT) 13 5-34 U/L Alanine Aminotransferase (ALT/SGPT) 8 0-55 U/L Alkaline Phosphatase 120 40-136 U/L Myoglobin 181.2 H 10.0-92.0 NG/ML Troponin I < 0.30 <0.30 NG/ML Total Protein 6.4 6.4-8.2 GM/DL Albumin 3.2 3.2-4.5 GM/DL My Orders Orders - VERNON COLLIER MD Cbc With Automated Diff (03/19/17 03:32) Magnesium (03/19/17 03:32) Chest 1 View, Ap/Pa Only (03/19/17 03:32) Ekg Tracing (03/19/17 03:32) Cardiac Profile 1 (03/19/17 03:32) Comprehensive Metabolic Panel (03/19/17 03:32) Myoglobin Serum (03/19/17 03:32) Protime With Inr (03/19/17 03:32) Partial Thromboplastin Time (03/19/17 03:32) O2 (03/19/17 03:32) Monitor-Rhythm Ecg Trace Only (03/19/17 03:32) Saline Lock/Iv-Start (03/19/17 03:32) Fentanyl Injection (Sublimaze Injection (03/19/17 03:45) Ondansetron Injection (Zofran Injectio (03/19/17 04:30) Lidocaine 2% Viscous 15 Ml (Xylocaine Vi (03/19/17 04:30) Antacid Suspension (Mylanta Suspension (03/19/17 04:30) Famotidine Injection (Pepcid Injection) (03/19/17 04:30) Fentanyl Injection (Sublimaze Injection (03/19/17 04:45) Rx-Nitroglycerin Sl Tabs (Rx-Nitrostat S (03/19/17 05:00) Medications Given in ED Vital Signs/I&O Vital Sign - Last 12Hours 03/19/17 03/19/17 03/19/17 03/19/17 03:28 03:30 03:33 03:36 Temp 97.9 Pulse 61 62 Resp 20 16 B/P (MAP) 194/89 182/90 Pulse Ox 99 98 98 O2 Delivery Nasal Cannula Nasal Cannula Nasal Cannula Nasal Cannula O2 Flow Rate 2.00 2.00 2.0 2.00 03/19/17 03/19/17 03/19/17 04:30 04:50 05:00 Pulse 63 60 60 Resp 14 15 15 B/P (MAP) 195/88 186/89 159/61 Pulse Ox 98 97 98 O2 Delivery Nasal Cannula Nasal Cannula Nasal Cannula O2 Flow Rate 2.00 2.00 2.00 Blood Pressure Mean: 124 Progress Note #1: Time: 04:55 Progress Note Patient continues to have waxing and waning chest pain. She has required multiple doses of fentanyl. Troponin is still pending. Lab was delayed due to difficulty drawing from her port. EKG showed no ischemic changes. Have attempted to contact [facility] for transfer arrangements and am awaiting a call back. Progress Note #2: Time: 05:35 Progress Note Pain was unrelieved by GI cocktail and Pepcid. Patient still has pain rated as 5/10 after a third nitroglycerin. Transfer to [facility] has been accepted by Dr. Nunez. ECG Initial ECG Impression Date: Mar 19, 2017 Initial ECG Impression Time: 03:35 Initial ECG Rate: 62 Initial ECG Rhythm: Normal Sinus Comment Sinus rhythm with no ST elevation or depression. No abnormal intervals. Unchanged from prior. Diagnostic Imaging Diagonstic Imaging: Xray Plain Films/CT/US/NM/MRI: chest Comments Chest x-ray viewed by me and report not yet available. No acute abnormalities appreciated when compared with prior. Departure Impression Impression: Primary Impression: Chest pain Qualified Codes: R07.9 - Chest pain, unspecified Additional Impressions: Nausea History of coronary artery disease End stage renal failure on dialysis Disposition: XFER SHT-TRM HOSP Condition: Improved Departure-Patient Inst. Referrals: ISABEL OBREGON MD (PCP/Family) Primary Care Physician VERNON COLLIER MD Mar 19, 2017 04:53
[2017-03-19 04:56] LABS: MYOGLOBIN SERUM 181.2 NG/ML (10.0-92.0)
[2017-03-19 05:00] VITALS: BP 159/61
[2017-03-19] MEDS ORDERED: RX-NITROGLYCERIN 0.4 MG TAB BTL 25'S SL PRN (05:00)
--- OUTSIDE RECORDS SUMMARY | 2017-03-19 05:51 | XMS REPORT | Continuity of Care Document ---
Author Author [facility] Address Unknown Phone Unavailable Allergies Active Description Code Type Severity Reaction Onset Reported/Identified Relationship to Patient Clinical Status Yes acetaminophen [id number] Drug Allergy Mild DIZZINESS 02/20/2014 Yes propoxyphene [id number] Drug Allergy Mild DIZZINESS 02/20/2014 Yes codeine [id number] Drug Allergy Unknown CAN TAKE OXYCOD 02/20/2014 Yes esomeprazole [id number] Drug Allergy Unknown N/A 02/20/2014 Yes ketorolac [id number] Drug Allergy Unknown PT TAKES ASPIRI 02/20/2014 Yes levofloxacin [id number] Drug Allergy Unknown N/A 02/20/2014 Yes promethazine [id number] Drug Allergy Unknown N/A 02/20/2014 Yes TAPE TAPE Mild RASH 11/23/2014 Yes codeine codeine Drug Allergy Severe hallucinate 08/10/2016 Yes morphine morphine Drug Allergy Severe hallucinate 08/10/2016 Yes adhesive adhesive Drug Allergy Unknown . 08/11/2016 Yes TORADOL TORADOL Drug Allergy Unknown SHAKING 08/11/2016 Yes tramadol tramadol Drug Allergy Unknown UNKNOWN 08/11/2016 Medications Problems Date Dx Coded Attending Type Code Diagnosis Diagnosed By 08/05/1501 ORA MARSH, MALVIN Darden Ot D63.1 ANEMIA IN CHRONIC KIDNEY DISEASE 08/05/1501 MALVIN PAYAN MD, Ot E03.9 HYPOTHYROIDISM, UNSPECIFIED 08/05/1501 MALVIN PAYAN MD Ot E11.22 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 08/05/1501 MALVIN PAYAN MD Ot E66.01 MORBID (SEVERE) OBESITY DUE TO EXCESS CA 08/05/1501 MALVIN PAYAN MD, Ot E83.42 HYPOMAGNESEMIA 08/05/1501 MALVIN PAYAN MD, Ot F32.9 MAJOR DEPRESSIVE DISORDER, SINGLE EPISOD 08/05/1501 MALVIN PAYAN MD, Ot F41.9 ANXIETY DISORDER, UNSPECIFIED 08/05/1501 MALVIN PAYAN MD, Ot I12.9 HYPERTENSIVE CHRONIC KIDNEY DISEASE W ST 08/05/1501 MALVIN PAYAN MD, Ot I25.10 ATHSCL HEART DISEASE OF [place] CORONARY 08/05/1501 MALVIN PAYAN MD, Ot I65.23 OCCLUSION AND STENOSIS OF [place]IL[place]AL [place] 08/05/1501 MALVIN PAYAN MD, Ot N18.9 CHRONIC KIDNEY DISEASE, UNSPECIFIED 08/05/1501 MALVIN PAYAN MD, Ot Z68.41 BODY MASS INDEX (BMI) 40.0-44.9, ADULT 08/05/1501 MALVIN PAYAN MD, Ot Z79.4 HALF-WAY (CURRENT) USE OF INSULIN 08/05/1501 MALVIN PAYAN MD, Ot Z79.899 OTHER RADIOLOGICAL HEALTH SPECIALIST (CURRENT) DRUG THERAPY 11/04/2009 JURGEN CASTORENA LCPC 296.90 MO MOOD DIS NOS 11/04/2009 SOPHIA LSCS, KAREN R 296.90 MO MOOD DIS NOS 11/04/2009 JURGEN CASTORENA LCPC 296.90 MO MOOD DIS NOS 11/04/2009 SOPHIA LSCS, KAREN R 296.90 MO MOOD DIS NOS 11/04/2009 SOPHIA LSCS, KAREN R 296.90 MO MOOD DIS NOS 11/04/2009 SOPHIA LSCS, KAREN R 296.90 MO MOOD DIS NOS 11/04/2009 SOPHIA LSCS, KAREN R 296.90 MO MOOD DIS NOS 11/04/2009 SOPHIA LSCS, KAREN R 296.90 MO MOOD DIS NOS 11/04/2009 SOPHIA LSCS, KAREN R 296.90 MO MOOD DIS NOS 11/04/2009 SOPHIA LSCS, KAREN R 296.90 MO MOOD DIS NOS 11/04/2009 SOPHIA LSCS, KAREN R 296.90 MO MOOD DIS NOS 12/19/2009 Ot 250.00 12/19/2009 Ot 496 12/19/2009 Ot 714.0 12/19/2009 Ot 724.2 12/19/2009 Ot 959.19 12/19/2009 Ot E000.8 12/19/2009 Ot E030 12/19/2009 Ot E885.9 12/19/2009 Ot V12.59 12/19/2009 Ot V57.1 02/06/2010 JURGEN CASTORENA LCPC 300.00 AN ANXIETY UNSPEC 02/06/2010 SOPHIA CHRISTOPHERCS, KAREN R 300.00 AN ANXIETY UNSPEC 02/06/2010 KELL BRIONES, JURGEN B 300.00 AN ANXIETY UNSPEC 02/06/2010 [facility] AN ANXIETY UNSPEC 02/06/2010 SOPHIA LSCS, KAREN R 300.00 AN ANXIETY UNSPEC 02/06/2010 SOPHIA LSCS, KAREN R 300.00 AN ANXIETY UNSPEC 02/06/2010 SOPHIA LSCS, KAREN R 300.00 AN ANXIETY UNSPEC 02/06/2010 SOPHIA LSCS, KAREN R 300.00 AN ANXIETY UNSPEC 02/06/2010 SOPHIA LSCS, KAREN R 300.00 AN ANXIETY UNSPEC 02/06/2010 SOPHIA LSCS, KAREN R 300.00 AN ANXIETY UNSPEC 02/06/2010 SOPHIA LSCS, KAREN R 300.00 AN ANXIETY UNSPEC 07/21/2010 Ot 244.9 07/21/2010 Ot 250.00 07/21/2010 Ot 272.4 07/21/2010 Ot 345.90 07/21/2010 Ot 411.1 07/21/2010 Ot 414.01 07/21/2010 Ot V12.54 07/21/2010 Ot V45.82 07/21/2010 Ot V58.31 07/26/2011 Ot 250.02 DIAB AMBAR WO COMPL, TYPE II OR UNSPEC TY 07/26/2011 Ot 272.4 HYPERLIPIDEMIA NEC/NOS 07/26/2011 Ot 401.9 HYPERTENSION NOS 07/26/2011 Ot 414.01 CORONARY ATHEROSCLEROSIS OF [place] CORON 07/26/2011 Ot 496 CHR AIRWAY OBSTRUCT NEC 07/26/2011 Ot 530.81 ESOPHAGEAL REFLUX 07/26/2011 Ot 616.4 ABSCESS OF VULVA NEC 07/26/2011 Ot 721.42 SPOND COMPR LUMB SP CORD 07/26/2011 Ot V12.54 PERSONAL HX OF TIA, CEREBRAL INFARCTION 07/26/2011 Ot V15.82 HISTORY OF TOBACCO USE 07/26/2011 Ot V58.67 LONG-TERM (CURRENT) USE OF INSULIN 01/05/2012 Ot 250.02 DIAB AMBAR WO COMPL, TYPE II OR UNSPEC TY 01/05/2012 Ot 278.00 OBESITY, NOS 01/05/2012 Ot 401.9 HYPERTENSION NOS 01/05/2012 Ot 530.81 ESOPHAGEAL REFLUX 01/05/2012 Ot 577.0 ACUTE PANCREATITIS 01/05/2012 Ot V15.82 HISTORY OF TOBACCO USE 01/05/2012 Ot V85.34 BODY MASS INDEX 34.0-34.9, ADULT 01/10/2012 Ot 244.9 HYPOTHYROIDISM NOS 01/10/2012 Ot 250.00 DIAB AMBAR WO COMPL, TYPE II OR UNSPEC TY 01/10/2012 Ot 272.4 HYPERLIPIDEMIA NEC/NOS 01/10/2012 Ot 278.00 OBESITY, NOS 01/10/2012 Ot 401.9 HYPERTENSION NOS 01/10/2012 Ot 414.01 CORONARY ATHEROSCLEROSIS OF [place] CORON 01/10/2012 Ot 530.81 ESOPHAGEAL REFLUX 01/10/2012 Ot 780.4 DIZZINESS AND GIDDINESS 01/10/2012 Ot 786.50 CHEST PAIN NOS 01/10/2012 Ot V12.54 PERSONAL HX OF TIA, CEREBRAL INFARCTION 01/10/2012 Ot V15.82 HISTORY OF TOBACCO USE 01/10/2012 Ot V45.82 PERCUTANEOUS TRANSLUM CORON ANGIOPLASTY 01/10/2012 Ot V58.67 LONG-TERM (CURRENT) USE OF INSULIN 01/10/2012 Ot V58.69 OTH MED,LT,CURRENT USE 01/10/2012 Ot V85.37 BODY MASS INDEX 37.0-37.9, ADULT 02/23/2012 Ot 250.00 DIAB AMBAR WO COMPL, TYPE II OR UNSPEC TY 02/23/2012 Ot 278.00 OBESITY, NOS 02/23/2012 Ot 401.9 HYPERTENSION NOS 02/23/2012 Ot 414.01 CORONARY ATHEROSCLEROSIS OF [place] CORON 02/23/2012 Ot 789.09 ABDOMINAL PAIN, OTHER SPECIFIED SITE 02/23/2012 Ot V45.82 PERCUTANEOUS TRANSLUM CORON ANGIOPLASTY 02/23/2012 Ot V58.63 LONG-TERM(CURRENT)USE OF ANTIPLATELET/AN 02/23/2012 Ot V58.66 LONG-TERM (CURRENT) USE OF ASPIRIN 02/23/2012 Ot V58.67 LONG-TERM (CURRENT) USE OF INSULIN 02/23/2012 Ot V58.69 OTH MED,LT,CURRENT USE 02/23/2012 Ot V85.35 BODY MASS INDEX 35.0-35.9, ADULT 08/19/2012 Ot 250.00 DIAB AMBAR WO COMPL, TYPE II OR UNSPEC TY 08/19/2012 Ot 276.1 HYPOSMOLALITY 08/19/2012 Ot 682.5 CELLULITIS OF BUTTOCK 08/19/2012 Ot 787.01 NAUSEA WITH VOMITING 02/21/2013 CASSIDY ACOSTA Ot 379.91 PAIN IN OR AROUND EYE 02/21/2013 CASSIDY ACOSTA Ot 850.0 CONCUSSION W/O COMA 02/21/2013 CASSIDY ACOSTA Ot 922.32 BUTTOCK CONTUSION 02/21/2013 CASSIDY ACOSTA Ot 959.01 HEAD INJURY, NOS 02/21/2013 CASSIDY ACOSTA Ot E000.8 OTHER EXTERNAL CAUSE STATUS 02/21/2013 CASSIDY ACOSTA Ot E849.6 ACCIDENT IN PUBLIC BLDG 02/21/2013 CASSIDY ACOSTA Ot E888.1 FALL STRIKING OBJECT NEC 03/02/2013 ISABEL HUMPHREYS MD Ot 041.12 METHICILLIN RESISTANT STAPHYLOCOCCUS AUR 03/02/2013 ISABEL HUMPHREYS MD R Ot 250.00 DIAB AMBAR WO COMPL, TYPE II OR UNSPEC TY 03/02/2013 ISABEL HUMPHREYS MD R Ot 360.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 03/02/2013 ISABEL HUMPHREYS MD Ot 382.9 OTITIS MEDIA NOS 03/02/2013 ISABEL HUMPHREYS MD R Ot 401.9 HYPERTENSION NOS 03/02/2013 ISABEL HUMPHREYS MD R Ot 724.2 LUMBAGO 04/17/2013 JESSIKA DO, ANNE MARIE K Ot 244.9 HYPOTHYROIDISM NOS 04/17/2013 JESSIKA DO, ANNE MARIE K Ot 250.00 DIAB AMBAR WO COMPL, TYPE II OR UNSPEC TY 04/17/2013 JESSIKA DO, ANNE MARIE K Ot 412 OLD MYOCARDIAL INFARCT 04/17/2013 JESSIKA DO, ANNE MARIE K Ot 414.01 CORONARY ATHEROSCLEROSIS OF [place] CORON 04/17/2013 JESSIKA DO, ANNE MARIE K Ot 780.4 DIZZINESS AND GIDDINESS 04/17/2013 JESSIKA DO, ANNE MARIE K Ot 791.9 ABN URINE FINDINGS NEC 04/17/2013 JESSIKA DO, ANNE MARIE K Ot V12.54 PERSONAL HX OF TIA, CEREBRAL INFARCTION 04/27/2013 ISABEL HUMPHREYS MD R Ot 250.02 DIAB AMBAR WO COMPL, TYPE II OR UNSPEC TY 04/27/2013 ISABEL HUMPHREYS MD R Ot 278.00 OBESITY, NOS 04/27/2013 ISABLE HUMPHREYS MD R Ot 285.9 ANEMIA NOS 04/27/2013 ISABEL HUMPHREYS MD R Ot 401.9 HYPERTENSION NOS 04/27/2013 ISABEL HUMPHREYS MD R Ot 493.20 CHRONIC OBSTRUCTIVE ASTHMA, NOS 04/27/2013 ISABEL HUMPHREYS MD R Ot 729.1 MYALGIA AND MYOSITIS NOS 04/27/2013 ISABEL HUMPHREYS MD Ot 780.4 DIZZINESS AND GIDDINESS 04/27/2013 ISABEL HUMPHREYS MD R Ot 787.02 NAUSEA ALONE 04/27/2013 ISABEL HUMPHREYS MD Ot 787.91 DIARRHEA 04/27/2013 ISABEL HUMPHREYS MD R Ot 789.00 ABDOMINAL PAIN, UNSPECIFIED SITE 04/27/2013 ISABEL HUMPHREYS MD Ot V85.37 BODY MASS INDEX 37.0-37.9, ADULT 09/09/2013 ISABEL HUMPHREYS MD Ot 041.04 STREPTOCOCCUS INFECTION NOS, GROUP D (EN 09/09/2013 ISABEL HUMPHREYS MD R Ot 041.09 BACTERIAL INFECTION DUE TO OTHER STREPTO 09/09/2013 ISABEL HUMPHREYS MD R Ot 041.12 METHICILLIN RESISTANT STAPHYLOCOCCUS AUR 09/09/2013 ISABEL HUMPHREYS MD R Ot 041.85 BACTERIAL INFEC DUE TO OTH GRAM-NEG ORGA 09/09/2013 ISABEL HUMPHREYS MD R Ot 244.9 HYPOTHYROIDISM NOS 09/09/2013 ISABEL HUMPHREYS MD R Ot 250.40 DIAB W RENAL MANIFEST, TYPE II OR UNSPEC 09/09/2013 ISABEL HUMPHREYS MD R Ot 250.60 DIAB W NEURO MANIFEST, TYPE II OR UNSPEC 09/09/2013 ISABEL HUMPHREYS MD R Ot 276.7 HYPERPOTASSEMIA 09/09/2013 ISABEL HUMPHREYS MD R Ot 278.01 MORBID OBESITY 09/09/2013 ISABEL HUMPHREYS MD R Ot 285.21 ANEMIA IN CHRONIC KIDNEY DISEASE 09/09/2013 ISABEL HUMPHREYS MD R Ot 285.29 ANEMIA OF OTHER CHRONIC DISEASE 09/09/2013 ISABEL HUMPHREYS MD R Ot 288.50 LEUKOCYTOPENIA, UNSPECIFIED 09/09/2013 ISABEL HUMPHREYS MD R Ot 338.29 OTHER CHRONIC PAIN 09/09/2013 ISABEL HUMPHREYS MD R Ot 357.2 NEUROPATHY IN DIABETES 09/09/2013 ISABEL HUMPHREYS MD R Ot 403.90 HYPTNSV CHR KID DIS, UNSPEC, W CHR KD ST 09/09/2013 ISABEL HUMPHREYS MD R Ot 412 OLD MYOCARDIAL INFARCT 09/09/2013 ISABEL HUMPHREYS MD R Ot 414.01 CORONARY ATHEROSCLEROSIS OF [place] CORON 09/09/2013 ISABEL HUMPHREYS MD R Ot 487.1 FLU W RESP MANIFEST NEC 09/09/2013 ISABEL HUMPHREYS MD R Ot 496 CHR AIRWAY OBSTRUCT NEC 09/09/2013 ISABEL HUMPHREYS MD R Ot 564.00 UNSPEC CONSTIPATION 09/09/2013 ISABEL HUMPHREYS MD R Ot 585.9 CHRONIC KIDNEY DISEASE, UNSPECIFIED 09/09/2013 ISABEL HUMPHREYS MD Ot 593.9 RENAL URETERAL DIS NOS 09/09/2013 ISABEL HUMPHREYS MD Ot 681.10 CELLULITIS, TOE NOS 09/09/2013 ISABEL HUMPHREYS MD Ot 682.7 CELLULITIS OF FOOT 09/09/2013 ISABEL HUMPHREYS MD R Ot 724.5 BACKACHE NOS 09/09/2013 ISABEL HUMPHREYS MD R Ot 786.59 CHEST PAIN NEC 09/09/2013 ISABEL HUMPHREYS MD R Ot 787.91 DIARRHEA 09/09/2013 ISABEL HUMPHREYS MD R Ot 893.1 OPEN WOUND TOE-COMPL 09/09/2013 ISABEL HUMPHREYS MD R Ot V45.82 PERCUTANEOUS TRANSLUM CORON ANGIOPLASTY 09/09/2013 ISABEL HUMPHREYS MD R Ot V85.41 BODY MASS INDEX 40.0-44.9, ADULT 02/09/2014 ISABEL HUMPHREYS MD R Ot 244.9 HYPOTHYROIDISM NOS 02/09/2014 ISABEL HUMPHREYS MD R Ot 250.00 DIAB AMBAR WO COMPL, TYPE II OR UNSPEC TY 02/09/2014 ISABEL HUMPHREYS MD R Ot 272.4 HYPERLIPIDEMIA NEC/NOS 02/09/2014 ISABEL HUMPHREYS MD R Ot 276.2 ACIDOSIS 02/09/2014 ISABEL HUMPHREYS MD R Ot 276.7 HYPERPOTASSEMIA 02/09/2014 ISABEL HUMPHREYS MD R Ot 285.21 ANEMIA IN CHRONIC KIDNEY DISEASE 02/09/2014 ISABLE HUMPHREYS MD R Ot 300.00 ANXIETY STATE NOS 02/09/2014 ISABEL HUMPHREYS MD R Ot 311 DEPRESSIVE DISORDER NEC 02/09/2014 ISABEL HUMPHREYS MD Ot 403.90 HYPTNSV CHR KID DIS, UNSPEC, W CHR KD ST 02/09/2014 ISABEL HUMPHREYS MD, Ot 414.01 CORONARY ATHEROSCLEROSIS OF [place] CORON 02/09/2014 ISABEL HUMPHREYS MD Ot 433.10 CAROTID ARTERY OCCLUSION W O CEREBRAL IN 02/09/2014 ISABEL HUMPHREYS MD Ot 433.30 MULT BILTRAL ARTERY OCCLUSION WO CEREBRA 02/09/2014 ISABEL HUMPHREYS MD, Ot 459.81 VENOUS INSUFFICIENCY NOS 02/09/2014 ISABEL HUMPHREYS MD, Ot 535.40 OTH SPECIFIED GASTRITIS,W/O MENTION OF H 02/09/2014 ISABEL HUMPHREYS MD, Ot 562.10 DIVERTICULOSIS COLON (W/O MENT OF HEMORR 02/09/2014 ISABEL HUMPHREYS MD, Ot 578.9 GASTROINTEST HEMORR NOS 02/09/2014 ISABEL HUMPHREYS MD, Ot 584.9 ACUTE RENAL FAILURE, UNSPECIFIED 02/09/2014 ISABEL HUMPHREYS MD, Ot 585.9 CHRONIC KIDNEY DISEASE, UNSPECIFIED 02/09/2014 ISABEL HUMPHREYS MD Ot 780.64 CHILLS (WITHOUT FEVER) 02/09/2014 ISABEL HUMPHREYS MD, Ot 781.0 ABN INVOLUN MOVEMENT NEC 02/09/2014 ISABEL HUMPHREYS MD Ot 785.1 PALPITATIONS 02/09/2014 ISABEL HUMPHREYS MD, Ot 786.59 CHEST PAIN NEC 02/09/2014 ISABEL HUMPHREYS MD, Ot E936.3 ADV EFF ANTCONVL NEC/NOS 02/09/2014 ISABEL HUMPHREYS MD Ot V12.51 HX-VENOUS THROMBOSIS EMBOLISM 02/09/2014 ISABEL HUMPHREYS MD, Ot V45.82 PERCUTANEOUS TRANSLUM CORON ANGIOPLASTY 02/09/2014 ISABEL HUMPHREYS MD, Ot V58.67 LONG-TERM (CURRENT) USE OF INSULIN 02/23/2014 ISABEL HUMPHREYS MD Ot 244.9 HYPOTHYROIDISM NOS 02/23/2014 ISABEL HUMPHREYS MD Ot 250.40 DIAB W RENAL MANIFEST, TYPE II OR UNSPEC 02/23/2014 ISABEL HUMPHREYS MD Ot 250.60 DIAB W NEURO MANIFEST, TYPE II OR UNSPEC 02/23/2014 ISABEL HUMPHREYS MD R Ot 285.9 ANEMIA NOS 02/23/2014 ISABEL HUMPHREYS MD Ot 311 DEPRESSIVE DISORDER NEC 02/23/2014 ISABEL HUMPHREYS MD R Ot 357.2 NEUROPATHY IN DIABETES 02/23/2014 ISABEL HUMPHREYS MD Ot 429.9 HEART DISEASE NOS 02/23/2014 ISABEL HUMPHREYS MD Ot 496 CHR AIRWAY OBSTRUCT NEC 02/23/2014 ISABEL HUMPHREYS MD Ot 535.40 OTH SPECIFIED GASTRITIS,W/O MENTION OF H 02/23/2014 ISABEL HUMPHREYS MD Ot 562.10 DIVERTICULOSIS COLON (W/O MENT OF HEMORR 02/23/2014 ISABEL HUMPHREYS MD Ot 585.9 CHRONIC KIDNEY DISEASE, UNSPECIFIED 02/23/2014 ISABEL HUMPHREYS MD Ot 729.1 MYALGIA AND MYOSITIS NOS 02/23/2014 ISABEL HUMPHREYS MD R Ot 782.3 EDEMA 05/10/2014 JURGEN CASTORENA LCPC B 311 DEPRESSIVE DISORDER NOS 05/10/2014 [facility] 311 DEPRESSIVE DISORDER NOS 05/10/2014 SOPHIA LSCS, KAREN R 311 DEPRESSIVE DISORDER NOS 05/10/2014 SOPHIA LSCS, KAREN R 311 DEPRESSIVE DISORDER NOS 05/10/2014 SOPHIA LSCS, KAREN R 311 DEPRESSIVE DISORDER NOS 05/10/2014 SOPHIA LSCS, KAREN R 311 DEPRESSIVE DISORDER NOS 05/10/2014 SOP[facility]IA LSCS, KAREN R 311 DEPRESSIVE DISORDER NOS 05/10/2014 [place] L[facility], KAREN R 311 DEPRESSIVE DISORDER NOS 05/10/2014 SOPHIA LSCS, KAREN R 311 DEPRESSIVE DISORDER NOS 05/17/2014 CASSIDY ACOSTA Ot 599.0 URIN TRACT INFECTION NOS 05/17/2014 CASSIDY ACOSTA Ot 789.09 ABDOMINAL PAIN, OTHER SPECIFIED SITE 05/27/2014 ORA MARSH, MALVIN Darden Ot 244.9 HYPOTHYROIDISM NOS 05/27/2014 ORA MARSH, MALVIN Darden Ot 250.00 DIAB AMBAR WO COMPL, TYPE II OR UNSPEC TY 05/27/2014 ORA MARSH, MALVIN Darden Ot 272.4 HYPERLIPIDEMIA NEC/NOS 05/27/2014 MALVIN PAYAN MD Ot 273.8 DIS PLAS PROTEIN MET NEC 05/27/2014 ORA MARSH, MALVIN Darden Ot 285.9 ANEMIA NOS 05/27/2014 ORA MARSH, MALVIN Darden Ot 300.00 ANXIETY STATE NOS 05/27/2014 ORA MARSH, MALVIN Darden Ot 403.90 HYPTNSV CHR KID DIS, UNSPEC, W CHR KD ST 05/27/2014 MALVIN PAYAN MD Ot 433.10 CAROTID ARTERY OCCLUSION W O CEREBRAL IN 05/27/2014 MALVIN PAYAN MD Ot 585.9 CHRONIC KIDNEY DISEASE, UNSPECIFIED 05/27/2014 ORA MARSH, MALVIN Darden Ot V12.54 PERSONAL HX OF TIA, CEREBRAL INFARCTION 05/27/2014 MALVIN PAYAN MD Ot V58.69 OTH MED,LT,CURRENT USE 07/15/2014 BIBI MARSH, ANTONIO Ot 250.01 DIAB AMBAR WO COMPL, TYPE I [JUVENILE TYP 08/13/2014 ORA MARSH, MALVIN Darden Ot 244.9 08/13/2014 ORA MARSH, MALVIN Darden Ot 250.00 08/13/2014 ORA MARSH, MALVIN Darden Ot 272.4 08/13/2014 ORA MARSH, MALVIN Darden Ot 273.8 08/13/2014 ORA MARSH, MALVIN Darden Ot 285.9 08/13/2014 ORA MARSH, MALVIN Darden Ot 300.00 08/13/2014 ORA MARSH, MALVIN Darden Ot 403.90 08/13/2014 ORA MARSH, MALVIN Darden Ot 433.10 08/13/2014 ORA MARSH, MALVIN Darden Ot 585.9 08/13/2014 ORA MARSH, MALVIN Darden Ot V12.54 08/13/2014 ORA MARSH, MALVIN Darden Ot V58.69 08/13/2014 ORA MARSH, MALVIN Darden Ot 244.9 08/13/2014 ORA MARSH, MALVIN Darden Ot 250.00 08/13/2014 ORA MARSH, MALVIN Darden Ot 272.4 08/13/2014 ORA MARSH, MALVIN Darden Ot 273.8 08/13/2014 ORA MARSH, MALVIN Darden Ot 285.9 08/13/2014 ORA MARSH, MALVIN Darden Ot 300.00 08/13/2014 ORA MARSH, MALVIN Darden Ot 403.90 08/13/2014 ORA MARSH, MALVIN Darden Ot 433.10 08/13/2014 ORA MARSH, MALVIN Darden Ot 585.9 08/13/2014 ORA MARSH, MALVIN Darden Ot V12.54 08/13/2014 ORA MARSH, MALVIN Darden Ot V58.69 11/01/2014 Ot 244.9 11/01/2014 Ot 250.40 11/01/2014 Ot 272.4 11/01/2014 Ot 285.21 11/01/2014 Ot 300.00 11/01/2014 Ot 403.90 11/01/2014 Ot 410.71 11/01/2014 Ot 414.01 11/01/2014 Ot 433.10 11/01/2014 Ot 433.30 11/01/2014 Ot 438.89 11/01/2014 Ot 583.81 11/01/2014 Ot 584.9 11/01/2014 Ot 585.4 11/01/2014 Ot 781.2 11/01/2014 Ot V45.82 11/01/2014 Ot V58.67 11/02/2014 Ot 244.9 11/02/2014 Ot 250.40 11/02/2014 Ot 272.4 11/02/2014 Ot 285.21 11/02/2014 Ot 300.00 11/02/2014 Ot 403.90 11/02/2014 Ot 410.71 11/02/2014 Ot 414.01 11/02/2014 Ot 433.10 11/02/2014 Ot 433.30 11/02/2014 Ot 438.89 11/02/2014 Ot 583.81 11/02/2014 Ot 584.9 11/02/2014 Ot 585.4 11/02/2014 Ot 781.2 11/02/2014 Ot V45.82 11/02/2014 Ot V58.67 11/06/2014 Ot 244.9 HYPOTHYROIDISM NOS 11/06/2014 Ot 250.40 DIAB W RENAL MANIFEST, TYPE II OR UNSPEC 11/06/2014 Ot 272.4 HYPERLIPIDEMIA NEC/NOS 11/06/2014 Ot 285.21 ANEMIA IN CHRONIC KIDNEY DISEASE 11/06/2014 Ot 300.00 ANXIETY STATE NOS 11/06/2014 Ot 403.90 HYPTNSV CHR KID DIS, UNSPEC, W CHR KD ST 11/06/2014 Ot 410.71 AC MYOCARDIAL INFARCT,SUBENDO INFARCT,IN 11/06/2014 Ot 414.01 CORONARY ATHEROSCLEROSIS OF [place] CORON 11/06/2014 Ot 427.31 ATRIAL FIBRILLATION 11/06/2014 Ot 428.0 CONGESTIVE HEART FAILURE NOS 11/06/2014 Ot 433.10 CAROTID ARTERY OCCLUSION W O CEREBRAL IN 11/06/2014 Ot 433.30 MULT BILTRAL ARTERY OCCLUSION WO CEREBRA 11/06/2014 Ot 438.89 OTH LATE EFFECT-CEREBROVASCULAR DISEASE 11/06/2014 Ot 530.81 ESOPHAGEAL REFLUX 11/06/2014 Ot 583.81 NEPHRITIS NOS IN OTH DIS 11/06/2014 Ot 584.9 ACUTE RENAL FAILURE, UNSPECIFIED 11/06/2014 Ot 585.4 CHRONIC KIDNEY DISEASE, STAGE IV (SEVERE 11/06/2014 Ot 780.57 UNSPECIFIED SLEEP APNEA 11/06/2014 Ot 781.2 ABNORMALITY OF GAIT 11/06/2014 Ot V45.82 PERCUTANEOUS TRANSLUM CORON ANGIOPLASTY 11/06/2014 Ot V58.67 LONG-TERM (CURRENT) USE OF INSULIN 11/26/2014 ISABEL HUMPHREYS MD Ot 244.9 HYPOTHYROIDISM NOS 11/26/2014 ISABEL HUMPHREYS MD Ot 250.40 DIAB W RENAL MANIFEST, TYPE II OR UNSPEC 11/26/2014 ISABEL HUMPHREYS MD Ot 272.4 HYPERLIPIDEMIA NEC/NOS 11/26/2014 ISABEL HUMPHREYS MD Ot 285.21 ANEMIA IN CHRONIC KIDNEY DISEASE 11/26/2014 ISABEL HUMPHREYS MD R Ot 300.01 PANIC DISORDER WITHOUT AGORAPHOBIA 11/26/2014 ISABEL HUMPHREYS MD R Ot 403.00 HYPTNSV CHR KID DIS, MALIGN, W CHR KD ST 11/26/2014 ISABEL HUMPHREYS MD R Ot 414.01 CORONARY ATHEROSCLEROSIS OF [place] CORON 11/26/2014 ISABEL HUMPHREYS MD R Ot 433.10 CAROTID ARTERY OCCLUSION W O CEREBRAL IN 11/26/2014 ISABEL HUMPHREYS MD R Ot 493.20 CHRONIC OBSTRUCTIVE ASTHMA, NOS 11/26/2014 ISABEL HUMPHREYS MD R Ot 514 PULM CONGEST/HYPOSTASIS 11/26/2014 ISABEL HUMPHREYS MD R Ot 530.81 ESOPHAGEAL REFLUX 11/26/2014 ISABEL HUMPHREYS MD Ot 583.81 NEPHRITIS NOS IN OTH DIS 11/26/2014 ISABEL HUMPHREYS MD Ot 585.3 CHRONIC KIDNEY DISEASE, STAGE III (MODER 11/26/2014 ISABEL HUMPHREYS MD Ot 782.3 EDEMA 11/26/2014 ISABEL HUMPHREYS MD Ot E849.7 ACCID IN RESIDENT INSTIT 11/26/2014 ISABEL HUMPHREYS MD Ot E934.8 ADV EFF BLOOD AGENT NEC 11/26/2014 SEGLIE MD, ISABEL R Ot V45.82 PERCUTANEOUS TRANSLUM CORON ANGIOPLASTY 11/26/2014 JULIANN MARSH, ISABEL R Ot V58.67 LONG-TERM (CURRENT) USE OF INSULIN 11/26/2014 JULIANN MARSH, ISABEL R Ot 244.9 11/26/2014 JULIANN MARSH, ISABEL R Ot 250.40 11/26/2014 JULIANN MARSH, ISABEL R Ot 272.4 11/26/2014 JULIANN MARSH, ISABEL R Ot 285.21 11/26/2014 JULIANN MARSH, ISABEL R Ot 300.01 11/26/2014 JULIANN MARSH, ISABEL R Ot 403.00 11/26/2014 JULIANN MARSH, ISABEL R Ot 414.01 11/26/2014 JULIANN MARSH, ISABEL R Ot 433.10 11/26/2014 JULIANN MARSH, ISABEL R Ot 493.20 11/26/2014 JULIANN MARSH, ISABEL R Ot 514 11/26/2014 JULIANN MARSH, ISABEL R Ot 530.81 11/26/2014 JULIANN MARSH, ISABEL R Ot 583.81 11/26/2014 JULIANN MARSH, ISABEL R Ot 585.3 11/26/2014 JULIANN MARSH, ISABEL R Ot 782.3 11/26/2014 JULIANN MARSH, ISABEL R Ot E849.7 11/26/2014 JULIANN MARSH, ISABEL R Ot E934.8 11/26/2014 JULIANN MARSH, ISABEL R Ot V45.82 11/26/2014 JULIANN MARSH, ISABEL R Ot V58.67 12/13/2014 JULIANN MARSH, ISABEL R Ot 244.9 12/13/2014 JULIANN MARSH, ISABEL R Ot 250.40 12/13/2014 JULIANN MARSH, ISABEL R Ot 272.4 12/13/2014 JULIANN AMRSH, ISABEL R Ot 285.21 12/13/2014 JULIANN MARSH, ISABEL R Ot 300.01 12/13/2014 JULIANN MARSH, ISABEL R Ot 403.00 12/13/2014 JULIANN MARSH, ISABEL R Ot 414.01 12/13/2014 JULIANN MARSH, ISABEL R Ot 433.10 12/13/2014 JULIANN MARSH, ISABEL R Ot 493.20 12/13/2014 JULIANN MARSH, ISABEL R Ot 514 12/13/2014 JULIANN MARSH, ISABEL R Ot 530.81 12/13/2014 JULIANN MARSH, ISABEL R Ot 583.81 12/13/2014 JULIANN MARSH, ISABEL R Ot 585.3 12/13/2014 JULIANN MARSH, ISABEL R Ot 782.3 12/13/2014 JULIANN MARSH, ISABEL R Ot E849.7 12/13/2014 JULIANN MARSH, ISABEL R Ot E934.8 12/13/2014 JULIANN MARSH, ISABEL R Ot V45.82 12/13/2014 JULIANN MARSH, ISABEL R Ot V58.67 12/31/2014 ORA MARSH, MALVIN Darden Ot 244.9 12/31/2014 ORA MARSH, MALVIN Darden Ot 250.00 12/31/2014 ORA MARSH, MALVIN Darden Ot 272.4 12/31/2014 ORA MARSH, MALVIN Darden Ot 273.8 12/31/2014 ORA MARSH, MALVIN Darden Ot 285.21 12/31/2014 ORA MARSH, MALVIN Darden Ot 300.00 12/31/2014 ORA MARSH, MALVIN Darden Ot 403.90 12/31/2014 ORA MARSH, MALVIN Darden Ot 433.10 12/31/2014 ORA MARSH, MALVIN Darden Ot 585.4 12/31/2014 ORA MRASH, MALVIN Darden Ot 585.9 12/31/2014 ORA MARSH, MALVIN Darden Ot V12.54 12/31/2014 ORA MARSH, MALVIN Darden Ot V58.69 02/13/2015 MALVIN PAYAN MD Ot 244.9 HYPOTHYROIDISM NOS 02/13/2015 ORA MARSH, MALVIN Darden Ot 250.00 DIAB AMBAR WO COMPL, TYPE II OR UNSPEC TY 02/13/2015 MALVIN PAYAN MD Ot 272.4 HYPERLIPIDEMIA NEC/NOS 02/13/2015 MALVIN PAYAN MD Ot 273.8 DIS PLAS PROTEIN MET NEC 02/13/2015 MALVIN PAYAN MD Ot 285.21 ANEMIA IN CHRONIC KIDNEY DISEASE 02/13/2015 ORA MARSH, MALVIN Darden Ot 300.00 ANXIETY STATE NOS 02/13/2015 ORA MARSH, MALVIN Darden Ot 403.90 HYPTNSV CHR KID DIS, UNSPEC, W CHR KD ST 02/13/2015 ORA MARSH, MALVIN Darden Ot 433.10 CAROTID ARTERY OCCLUSION W O CEREBRAL IN 02/13/2015 MALVIN PAYAN MD, Ot 585.4 CHRONIC KIDNEY DISEASE, STAGE IV (SEVERE 02/13/2015 ORA MARSH, MALVIN Darden Ot 585.9 CHRONIC KIDNEY DISEASE, UNSPECIFIED 02/13/2015 ORA MARSH, MALVIN Darden Ot V12.54 PERSONAL HX OF TIA, CEREBRAL INFARCTION 02/13/2015 ORA MARSH, MALVIN Darden Ot V58.69 OTH MED,LT,CURRENT USE 02/20/2015 ORA MARSH, MALVIN Darden Ot 244.9 02/20/2015 ORA MARSH, MALVIN K Ot 250.00 02/20/2015 ORA MARSH, MALVIN K Ot 272.4 02/20/2015 ORA MARSH, MALVIN K Ot 273.8 02/20/2015 ORA MARSH, MALVIN K Ot 285.21 02/20/2015 ORA MARSH, MALVIN K Ot 300.00 02/20/2015 ORA MARSH, MALVIN K Ot 403.90 02/20/2015 ORA MARSH, MALVIN K Ot 433.10 02/20/2015 ORA MARSH, MALVIN Darden Ot 585.4 02/20/2015 ORA MARSH, MALVIN Darden Ot 585.9 02/20/2015 ORA MARSH, MALVIN Darden Ot V12.54 02/20/2015 ORA MARSH, MALVIN K Ot V58.69 02/20/2015 ORA MARSH, MALVIN K Ot 244.9 02/20/2015 ORA MARSH, MALVIN K Ot 250.00 02/20/2015 ORA MARSH, MALVIN K Ot 272.4 02/20/2015 ORA MARSH, MALVIN K Ot 273.8 02/20/2015 ORA MARSH, MALVIN K Ot 285.21 02/20/2015 ORA MARSH, MALVIN K Ot 300.00 02/20/2015 ORA MARSH, MALVIN K Ot 403.90 02/20/2015 ORA MARSH, MALVIN K Ot 433.10 02/20/2015 ORA MARSH, MALVIN K Ot 585.4 02/20/2015 ORA MARSH, MALVIN K Ot 585.9 02/20/2015 ORA MARSH, MALVIN K Ot V12.54 02/20/2015 ORA MARSH, MALVIN K Ot V58.69 02/21/2015 ORA MARSH, MALVIN K Ot 244.9 02/21/2015 ORA MARSH, MALVIN K Ot 250.00 02/21/2015 ORA MARSH, MALVIN K Ot 272.4 02/21/2015 ORA MARSH, MALVIN K Ot 273.8 02/21/2015 ORA MARSH, MALVIN K Ot 285.21 02/21/2015 ORA MARSH, MALVIN Darden Ot 300.00 02/21/2015 ORA MARSH, MALVIN Darden Ot 403.90 02/21/2015 ORA MARSH, MALVIN Darden Ot 433.10 02/21/2015 ORA MARSH, MALVIN Darden Ot 585.4 02/21/2015 ORA MARSH, MALVIN Darden Ot V12.54 02/21/2015 ORA MARSH, MALVIN Darden Ot V58.69 03/11/2015 Ot 959.3 03/11/2015 Ot E000.8 03/11/2015 Ot E030 03/11/2015 Ot E849.6 03/11/2015 Ot E888.9 03/11/2015 Ot 715.35 03/11/2015 Ot 721.3 03/11/2015 Ot 959.6 03/11/2015 Ot E000.8 03/11/2015 Ot E030 03/11/2015 Ot E849.8 03/11/2015 Ot E888.9 03/11/2015 Ot 414.01 03/11/2015 Ot 272.4 03/11/2015 Ot V58.69 03/11/2015 Ot 414.00 03/11/2015 JULIANN MARSH, ISABEL R Ot 300.00 03/11/2015 JULIANN MARSH, ISABEL R Ot 311 03/11/2015 MARIBELL MARAVILLA BUS DRIVER/MONITOR Ot 790.6 03/11/2015 JULIANN MARSH, ISABEL R Ot 285.9 03/11/2015 JULIANN MARSH, ISABEL R Ot 460 03/11/2015 MARIBELL MARAVILLA BUS DRIVER/MONITOR Ot 272.4 03/11/2015 MARIBELL MARAVILLA BUS DRIVER/MONITOR Ot 401.9 03/11/2015 MARIBELL MARAVILLA BUS DRIVER/MONITOR Ot 414.00 03/11/2015 JULIANN MARSH, ISABEL R Ot 348.89 03/11/2015 JULIANN MARSH, ISABEL R Ot 437.1 03/11/2015 JULIANN MARSH, ISABEL R Ot 780.97 03/11/2015 JULIANN MARSH, ISABEL R Ot 782.0 03/11/2015 JULIANN MARSH, ISABEL R Ot V76.12 03/11/2015 Ot 250.01 03/11/2015 ORA MARSH, MALVIN Darden Ot 244.9 03/11/2015 ORA MARSH, MALVIN Darden Ot 250.00 03/11/2015 ORA MARSH, MALVIN K Ot 272.4 03/11/2015 ORA MARSH, MALVIN K Ot 273.8 03/11/2015 ORA MARSH, MALVIN K Ot 285.21 03/11/2015 ORA MARSH, MALVIN K Ot 300.00 03/11/2015 ORA MARSH, MALVIN K Ot 403.90 03/11/2015 ORA MARSH, MALVIN Adelso Ot 433.10 03/11/2015 ORA MARSH, MALVIN Adelso Ot 585.4 03/11/2015 ORA MARSH, MALVIN Adelso Ot V12.54 03/11/2015 ORA MARSH, MALVIN K Ot V58.69 03/11/2015 KARI EDEN APRN Ot 327.23 OBSTRUCTIVE SLEEP APNEA (ADULT) ( PEDIATR 03/11/2015 ORA MARSH, MALVIN Darden Ot 244.9 03/11/2015 ORA MARSH, MALVIN Adelso Ot 250.00 03/11/2015 ORA MARSH, MALVIN Adelso Ot 272.4 03/11/2015 ORA MARSH, MALVIN Adelso Ot 273.8 03/11/2015 ORA MARSH, MALVIN Adelso Ot 285.21 03/11/2015 ORA MARSH, MALVIN K Ot 300.00 03/11/2015 ORA MARSH, MALVIN K Ot 403.90 03/11/2015 ORA MARSH, MALVIN Adelso Ot 433.10 03/11/2015 ORA MARSH, MALVIN Adelso Ot 585.4 03/11/2015 ORA MARSH, MALVIN Adelso Ot V12.54 03/11/2015 ORA MARSH, MALVIN Adelso Ot V58.69 03/27/2015 ORA MARSH, MALVIN Adelso Ot 244.9 03/27/2015 ORA MARSH, MALVIN K Ot 250.00 03/27/2015 ORA MARSH, MALVIN Adelso Ot 272.4 03/27/2015 ORA MARSH, MALVIN K Ot 273.8 03/27/2015 ORA MARSH, MALVIN K Ot 285.21 03/27/2015 ORA MARSH, MALVIN K Ot 300.00 03/27/2015 ORA MARSH, MALVIN K Ot 403.90 03/27/2015 ORA MARSH, MALVIN Adelso Ot 433.10 03/27/2015 ORA MARSH, MALVIN K Ot 585.4 03/27/2015 ORA MARSH, MALVIN K Ot V12.54 03/27/2015 ORA MARSH, MALVIN K Ot V58.69 04/19/2015 GUMARO HEBERT MD Ot 244.9 HYPOTHYROIDISM NOS 04/19/2015 GUMARO HEBERT MD Ot 250.00 DIAB AMBAR WO COMPL, TYPE II OR UNSPEC TY 04/19/2015 GUMARO HEBERT MD Ot 298.9 PSYCHOSIS NOS 04/19/2015 GUMARO HEBERT MD Ot 493.20 CHRONIC OBSTRUCTIVE ASTHMA, NOS 04/19/2015 GUMARO HEBERT MD Ot 599.0 URIN TRACT INFECTION NOS 04/19/2015 GUMARO HEBERT MD Ot 780.4 DIZZINESS AND GIDDINESS 04/19/2015 GUMARO HEBERT MD Ot 786.05 SHORTNESS OF BREATH 04/19/2015 GUMARO HEBERT MD Ot V54.11 AFTERCARE HEALING TRAUMATIC FX UPPER ARM 04/19/2015 GUMARO HEBERT MD Ot V58.67 LONG-TERM (CURRENT) USE OF INSULIN 04/19/2015 GUMARO HEBERT MD Ot V58.69 OTH MED,LT,CURRENT USE 04/25/2015 NICOLETTE MARSH, DULCE Ot 403.90 04/25/2015 NICOLETTE MARSH, DULCE Ot 585.3 04/26/2015 Ot 959.3 04/26/2015 Ot E000.8 04/26/2015 Ot E030 04/26/2015 Ot E849.6 04/26/2015 Ot E888.9 04/26/2015 Ot 715.35 04/26/2015 Ot 721.3 04/26/2015 Ot 959.6 04/26/2015 Ot E000.8 04/26/2015 Ot E030 04/26/2015 Ot E849.8 04/26/2015 Ot E888.9 04/26/2015 Ot 414.01 04/26/2015 Ot 272.4 04/26/2015 Ot V58.69 04/26/2015 Ot 414.00 04/26/2015 JULIANN MARSH, ISABEL R Ot 300.00 04/26/2015 JULIANN MARSH, ISABEL R Ot 311 04/26/2015 MARIBELL MARAVILLA BUS DRIVER/MONITOR Ot 790.6 04/26/2015 JULIANN MARSH, ISABEL R Ot 285.9 04/26/2015 JULIANN MARSH, ISABEL R Ot 460 04/26/2015 MARIBELL MARAVILLA BUS DRIVER/MONITOR Ot 272.4 04/26/2015 MARIBELL MARAVILLA BUS DRIVER/MONITOR Ot 401.9 04/26/2015 MARIBELL MARAVILLA Dustin BUS DRIVER/MONITOR Ot 414.00 04/26/2015 JULIANN MARSH, ISABEL R Ot 348.89 04/26/2015 JLUIANN MARSH, ISABEL R Ot 437.1 04/26/2015 JULIANN MARSH, ISABEL R Ot 780.97 04/26/2015 JULIANN MARSH, ISABEL R Ot 782.0 04/26/2015 JULIANN MARSH, ISABEL R Ot V76.12 04/26/2015 Ot 250.01 04/26/2015 ORA MARSH, MALVIN K Ot 244.9 04/26/2015 ORA MARSH, MALVIN K Ot 250.00 04/26/2015 ORA MARSH, MALVIN K Ot 272.4 04/26/2015 ORA MARSH, MALVIN K Ot 273.8 04/26/2015 ORA MARSH, MALVIN K Ot 285.21 04/26/2015 ORA MARSH, MALVIN K Ot 300.00 04/26/2015 ORA MARSH, MALVIN K Ot 403.90 04/26/2015 ORA MARSH, MALVIN K Ot 433.10 04/26/2015 ORA MARSH, MALVIN K Ot 585.4 04/26/2015 ORA MARSH, MALVIN K Ot V12.54 04/26/2015 ORA MARSH, MALVIN K Ot V58.69 04/26/2015 NICOLETTE MARSH, DULCE Ot 403.90 04/26/2015 NICOLETTE MARSH, DULCE Ot 585.3 05/01/2015 JULIANN MARSH, ISABEL R Ot 244.9 HYPOTHYROIDISM NOS 05/01/2015 JULIANN MARSH, ISABEL R Ot 250.00 DIAB AMBAR WO COMPL, TYPE II OR UNSPEC TY 05/01/2015 JULIANN MARSH, ISABEL R Ot 272.0 PURE HYPERCHOLESTEROLEM 05/01/2015 JULIANN MARSH, ISABEL R Ot 276.7 HYPERPOTASSEMIA 05/01/2015 JULIANN MARSH, ISABEL R Ot 285.21 ANEMIA IN CHRONIC KIDNEY DISEASE 05/01/2015 JULIANN MARSH, ISABEL R Ot 300.00 ANXIETY STATE NOS 05/01/2015 JULIANN MARSH, ISABEL R Ot 311 DEPRESSIVE DISORDER NEC 05/01/2015 JULIANN MARSH, ISABEL R Ot 403.90 HYPTNSV CHR KID DIS, UNSPEC, W CHR KD ST 05/01/2015 JULIANN MARSH, ISABEL R Ot 414.00 CORON ATHEROSCLER NOS TYPE VESSEL, NATIV 05/01/2015 ISABEL HUMPHREYS MD Ot 530.81 ESOPHAGEAL REFLUX 05/01/2015 ISABEL HUMPHREYS MD Ot 584.9 ACUTE RENAL FAILURE, UNSPECIFIED 05/01/2015 ISABEL HUMPHREYS MD Ot 585.9 CHRONIC KIDNEY DISEASE, UNSPECIFIED 05/01/2015 ISABEL HUMPHREYS MD Ot 782.3 EDEMA 05/01/2015 ISABEL HUMPHREYS MD Ot V12.54 PERSONAL HX OF TIA, CEREBRAL INFARCTION 05/01/2015 ISABEL HUMPHREYS MD Ot V45.82 PERCUTANEOUS TRANSLUM CORON ANGIOPLASTY 05/21/2015 MALVIN PAYAN MD Ot 244.9 HYPOTHYROIDISM NOS 05/21/2015 MALVIN PAYAN MD Ot 250.00 DIAB AMBAR WO COMPL, TYPE II OR UNSPEC TY 05/21/2015 MALVIN PAYAN MD Ot 272.4 HYPERLIPIDEMIA NEC/NOS 05/21/2015 MALVIN PAYAN MD Ot 273.8 DIS PLAS PROTEIN MET NEC 05/21/2015 MALVIN PAYAN MD Ot 285.21 ANEMIA IN CHRONIC KIDNEY DISEASE 05/21/2015 MALVIN PAYAN MD Ot 300.00 ANXIETY STATE NOS 05/21/2015 MALVIN PAYAN MD Ot 403.90 HYPTNSV CHR KID DIS, UNSPEC, W CHR KD ST 05/21/2015 MALVIN PAYAN MD Ot 433.10 CAROTID ARTERY OCCLUSION W O CEREBRAL IN 05/21/2015 MALVIN PAYAN MD Ot 585.4 CHRONIC KIDNEY DISEASE, STAGE IV (SEVERE 05/21/2015 MALVIN PAYAN MD Ot V12.54 PERSONAL HX OF TIA, CEREBRAL INFARCTION 05/21/2015 MALVIN PAYAN MD Ot V58.69 OTH MED,LT,CURRENT USE 05/23/2015 MALVIN PAYAN MD Ot 244.9 05/23/2015 MALVIN PAYAN MD Ot 250.00 05/23/2015 MALVIN PAYAN MD Ot 272.4 05/23/2015 MALVIN PAYAN MD Ot 273.8 05/23/2015 MALVIN PAYAN MD Ot 285.21 05/23/2015 MALVIN PAYAN MD Ot 300.00 05/23/2015 MALVIN PAYAN MD Ot 403.90 05/23/2015 MALVIN PAYAN MD Ot 433.10 05/23/2015 MALVIN PAYAN MD Ot 585.4 05/23/2015 MALVIN PAYAN MD Ot V12.54 05/23/2015 MALVIN PAYAN MD, Ot V58.69 05/24/2015 MALVIN PAYAN MD Ot 244.9 05/24/2015 ORA MARSH, MALVIN Darden Ot 250.00 05/24/2015 MALVIN PAYAN MD Ot 272.4 05/24/2015 MALVIN PAYAN MD Ot 273.8 05/24/2015 MALVIN PAYAN MD Ot 285.21 05/24/2015 ORA MARSH, MALVIN Darden Ot 300.00 05/24/2015 MALVIN PAYAN MD Ot 403.90 05/24/2015 MALVIN PAYAN MD Ot 433.10 05/24/2015 MALVIN PAYAN MD Ot 585.4 05/24/2015 MALVIN PAYAN MD, Ot V12.54 05/24/2015 MALVIN PAYAN MD, Ot V58.69 05/27/2015 AMIRA MARSH, VERNON Cardona Ot 250.80 DIAB W OTH SPEC MANIFEST, TYPE II OR UNS 05/27/2015 AMIRA MARSH, VERNON Cardona Ot V54.89 OTHER ORTHOPEDIC AFTERCARE 06/05/2015 MALVIN PAYAN MD Ot 244.9 HYPOTHYROIDISM NOS 06/05/2015 MALVIN PAYAN MD Ot 250.00 DIAB AMBAR WO COMPL, TYPE II OR UNSPEC TY 06/05/2015 MALVIN PAYAN MD Ot 272.4 HYPERLIPIDEMIA NEC/NOS 06/05/2015 MALVIN PAYAN MD Ot 273.8 DIS PLAS PROTEIN MET NEC 06/05/2015 MALVIN PAYAN MD Ot 285.21 ANEMIA IN CHRONIC KIDNEY DISEASE 06/05/2015 MALVIN PAYAN MD Ot 300.00 ANXIETY STATE NOS 06/05/2015 MALVIN PAYAN MD Ot 403.90 HYPTNSV CHR KID DIS, UNSPEC, W CHR KD ST 06/05/2015 MALVIN PAYAN MD Ot 433.10 CAROTID ARTERY OCCLUSION W O CEREBRAL IN 06/05/2015 MALVIN PAYAN MD Ot 585.4 CHRONIC KIDNEY DISEASE, STAGE IV (SEVERE 06/05/2015 MALVIN PAYAN MD Ot V12.54 PERSONAL HX OF TIA, CEREBRAL INFARCTION 06/05/2015 MALVIN PAYAN MD, Ot V58.69 OTH MED,LT,CURRENT USE 06/05/2015 MALVIN PAYAN MD, Ot V58.81 FIT/ADJ VASCULAR CATHETER 06/11/2015 MALVIN PAYAN MD Ot 244.9 06/11/2015 ORA MARSH, MALVIN K Ot 250.00 06/11/2015 ORA MARSH, MALVIN Darden Ot 272.4 06/11/2015 ORA MARSH, MALVIN Darden Ot 273.8 06/11/2015 ORA MARSH, MALVIN K Ot 285.21 06/11/2015 ORA MARSH, MALVIN K Ot 300.00 06/11/2015 ORA MARSH, MALVIN Darden Ot 403.90 06/11/2015 ORA MARSH, MALVIN Darden Ot 433.10 06/11/2015 ORA MARSH, MALVIN Darden Ot 585.4 06/11/2015 ORA MARSH, MALVIN Darden Ot V12.54 06/11/2015 ORA MARSH, MALVIN Darden Ot V58.69 06/11/2015 ORA MARSH, MALVIN Darden Ot V58.81 06/13/2015 Ot 414.01 06/13/2015 Ot 272.4 06/13/2015 Ot V58.69 06/13/2015 Ot 414.00 06/13/2015 JULIANN MARSH, ISABEL R Ot 300.00 06/13/2015 JULIANN MARSH, ISABEL R Ot 311 06/13/2015 MARIBELL MARAVILLA BUS DRIVER/MONITOR Ot 790.6 06/13/2015 JULIANN MARSH, ISABEL R Ot 285.9 06/13/2015 JULIANN MARSH, ISABEL R Ot 460 06/13/2015 MARIBELL MARAVILLA BUS DRIVER/MONITOR Ot 272.4 06/13/2015 MARIBELL MARAVILLA BUS DRIVER/MONITOR Ot 401.9 06/13/2015 MARIBELL MARAVILLA BUS DRIVER/MONITOR Ot 414.00 06/13/2015 JULIANN MARSH, ISABEL R Ot 348.89 06/13/2015 JULIANN MARSH, ISABEL R Ot 437.1 06/13/2015 JULIANN MARSH, ISABEL R Ot 780.97 06/13/2015 JULIANN MARSH, ISABEL R Ot 782.0 06/13/2015 JULIANN MARSH, ISABEL R Ot V76.12 06/13/2015 Ot 250.01 06/13/2015 NICOLETTE MARSH, DULCE Ot 403.90 06/13/2015 NICOLETTE MARSH, DULCE Ot 585.3 06/13/2015 ORA MARSH, MALVIN Darden Ot D63.1 06/13/2015 ORA MARSH, MALVIN Darden Ot E03.9 06/13/2015 ORA MARSH, MALVIN Adelso Ot E11.22 06/13/2015 ORA MARSH, MALVIN Adelso Ot E66.01 06/13/2015 ORA MARSH, MALVIN K Ot E83.42 06/13/2015 ORA MARSH, MALVIN K Ot F32.9 06/13/2015 ORA MARSH, MALVIN K Ot F41.9 06/13/2015 ORA MARSH, MALVIN K Ot I12.9 06/13/2015 ORA MARSH, MALVIN K Ot I25.10 06/13/2015 ORA MARSH, MALVIN K Ot I65.23 06/13/2015 ORA MARSH, MALVIN K Ot N18.9 06/13/2015 ORA MARSH, MALVIN K Ot Z68.41 06/13/2015 ORA MARSH, MALVIN Darden Ot Z79.4 06/13/2015 ORA MARSH, MALVIN Adelso Ot Z79.899 06/14/2015 JULIANN MARSH, ISABEL Zaidi Ot E03.9 HYPOTHYROIDISM, UNSPECIFIED 06/14/2015 JULIANN MARSH, ISABEL Zaidi Ot E11.9 TYPE 2 DIABETES MELLITUS WITHOUT COMPLIC 06/14/2015 JULIANN MARSH, ISABEL Zaidi Ot E78.5 HYPERLIPIDEMIA, UNSPECIFIED 06/14/2015 JULIANN MARSH, ISABEL Zaidi Ot I12.9 HYPERTENSIVE CHRONIC KIDNEY DISEASE W ST 06/14/2015 JULIANN MARSH, ISABEL R Ot I25.10 ATHSCL HEART DISEASE OF [place] CORONARY 06/14/2015 JULIANN MARSH, ISABEL Zaidi Ot I25.2 OLD MYOCARDIAL INFARCTION 06/14/2015 JULIANN MARSH, ISABEL Zaidi Ot N18.4 CHRONIC KIDNEY DISEASE, STAGE 4 (SEVERE) 06/14/2015 ISABEL HUMPHREYS MD Ot R00.2 PALPITATIONS 06/14/2015 JULIANN MARSH, ISABEL Zaidi Ot R07.9 CHEST PAIN, UNSPECIFIED 06/14/2015 JULIANN MARSH, ISABEL Zaidi Ot Z79.4 HALF-WAY (CURRENT) USE OF INSULIN 07/15/2015 ORA MARSH, MALVIN Darden Ot D63.1 07/15/2015 ORA MARSH, MALVIN Darden Ot E03.9 07/15/2015 ORA MARSH, MALVIN Darden Ot E11.22 07/15/2015 ORA MARSH, MALVIN Darden Ot E66.01 07/15/2015 ORA MARSH, MALVIN Darden Ot E83.42 07/15/2015 ORA MARSH, MALVIN Darden Ot F32.9 07/15/2015 ORA MARSH, MALVIN Darden Ot F41.9 07/15/2015 ORA MARSH, MALVIN Darden Ot I12.9 07/15/2015 ORA MARSH, MALVIN Darden Ot I25.10 07/15/2015 ORA MARSH, MALVIN Darden Ot I65.23 07/15/2015 ORA MARSH, MALVIN Darden Ot N18.9 07/15/2015 OAR MARSH, MALVIN Darden Ot Z68.41 07/15/2015 ORA MARSH, MALVIN Darden Ot Z79.4 07/15/2015 ORA MARSH, MALVIN Darden Ot Z79.899 07/15/2015 Ot 414.01 07/15/2015 Ot 272.4 07/15/2015 Ot V58.69 07/15/2015 Ot 414.00 07/15/2015 JULIANN MARSH, ISABEL R Ot 300.00 07/15/2015 JULIANN MARSH, ISABEL R Ot 311 07/15/2015 MARIBELL MARAVILLA BUS DRIVER/MONITOR Ot 790.6 07/15/2015 JULIANN MARSH, ISABEL R Ot 285.9 07/15/2015 JULIANN MARSH, ISABEL R Ot 460 07/15/2015 MARIBELL MARAVILLA BUS DRIVER/MONITOR Ot 272.4 07/15/2015 MARIBELL MARAVILLA BUS DRIVER/MONITOR Ot 401.9 07/15/2015 MARIBELL MARAVILLA BUS DRIVER/MONITOR Ot 414.00 07/15/2015 JULIANN MARSH, ISABEL R Ot 348.89 07/15/2015 JULIANN MARSH, ISABEL R Ot 437.1 07/15/2015 JULIANN MARSH, ISABEL R Ot 780.97 07/15/2015 JULIANN MARSH, ISABEL R Ot 782.0 07/15/2015 JULIANN MARSH, ISABEL R Ot V76.12 07/15/2015 Ot 250.01 07/15/2015 DAVE MARSH FACC, ALI FACP CCDS Ot D63.1 07/15/2015 DAVE MARSH FACC, ALI FACP CCDS Ot E11.9 07/15/2015 DAVE MARSH FACC, ALI FACP CCDS Ot E66.8 07/15/2015 DAVE MARSH FACC, ALI FACP CCDS Ot I10 07/15/2015 DAVE MARSH FACC, ALI FACP CCDS Ot I25.10 07/15/2015 DAVE MARSH FACC, ALI FACP CCDS Ot J43.8 07/15/2015 NICOLETTE MARSH, DULCE Ot E11.9 07/15/2015 NICOLETTE MARSH, DULCE Ot E66.9 07/15/2015 NICOLETTE MARSH, DULCE Ot I12.9 07/15/2015 NICOLETTE MARSH, DULCE Ot I25.10 07/15/2015 NICOLETTE MARSH, DULCE Ot J44.9 07/15/2015 NICOLETTE MARSH, DULCE Ot N18.3 07/15/2015 NICOLETTE MARSH, DULCE Ot 403.90 07/15/2015 NICOLETTE MARSH, DULCE Ot 585.3 07/15/2015 ORA MARSH, MALVIN K Ot D63.1 07/15/2015 ORA MARSH, MALVIN K Ot E03.9 07/15/2015 ORA MARSH, MALVIN K Ot E11.22 07/15/2015 ORA MARSH, MALVIN K Ot E66.01 07/15/2015 ORA MARSH, MALVIN K Ot E83.42 07/15/2015 ORA MARSH, MALVIN K Ot F32.9 07/15/2015 ORA MARSH, MALVIN K Ot F41.9 07/15/2015 ORA MARSH, MALVIN K Ot I12.9 07/15/2015 ORA MARSH, MALVIN K Ot I25.10 07/15/2015 ORA MARSH, MALVIN K Ot I65.23 07/15/2015 ORA MARSH, MALVIN K Ot N18.9 07/15/2015 ORA MARSH, MALVIN K Ot Z68.41 07/15/2015 ORA MARSH, MALVIN K Ot Z79.4 07/15/2015 ORA MARSH, MALVIN K Ot Z79.899 07/22/2015 DAVE MARSH FACC, ALI FACP CCDS Ot D63.1 07/22/2015 DAVE MARSH FACC, ALI FACP CCDS Ot E11.9 07/22/2015 DAVE MARSH FACC, ALI FACP CCDS Ot E66.8 07/22/2015 DAVE MARSH FACC, ALI FACP CCDS Ot I10 07/22/2015 DAVE MARSH FACC, ALI FACP CCDS Ot I25.10 07/22/2015 DAVE MARSH FACC, ALI FACP CCDS Ot J43.8 07/22/2015 NICOLETTE MARSH, DULCE Ot E11.9 07/22/2015 NICOLETTE MARSH, DULCE Ot E66.9 07/22/2015 NICOLETTE MARSH, DULCE Ot I12.9 07/22/2015 NICOLETTE MARSH, DULCE Ot I25.10 07/22/2015 NICOLETTE MARSH, DULCE Ot J44.9 07/22/2015 NICOLETTE MARSH, DULCE Ot N18.3 08/06/2015 ORA MARSH, MALVIN Darden Ot D63.1 08/06/2015 ORA MARSH, MALVIN K Ot E03.9 08/06/2015 ORA MARSH, MALVIN K Ot E11.22 08/06/2015 ORA MARSH, MALVIN K Ot E66.01 08/06/2015 ORA MARSH, MALVIN K Ot E83.42 08/06/2015 ORA MARSH, MALVIN K Ot F32.9 08/06/2015 ORA MARSH, MALVIN K Ot F41.9 08/06/2015 ORA MARSH, MALVIN K Ot I12.9 08/06/2015 ORA MARSH, MALVIN Darden Ot I25.10 08/06/2015 ORA MARSH, MALVIN Darden Ot I65.23 08/06/2015 ORA MARSH, MALVIN Darden Ot N18.9 08/06/2015 ORA MARSH, MALVIN Darden Ot Z68.41 08/06/2015 ORA MARSH, MALVIN Darden Ot Z79.4 08/06/2015 ORA MARSH, MALVIN Darden Ot Z79.899 08/06/2015 Ot 414.01 08/06/2015 Ot 272.4 08/06/2015 Ot V58.69 08/06/2015 Ot 414.00 08/06/2015 JULIANN MARSH, ISABEL R Ot 300.00 08/06/2015 JULIANN MARSH, ISABEL R Ot 311 08/06/2015 MARIBELL AMRAVILLA BUS DRIVER/MONITOR Ot 790.6 08/06/2015 JULIANN MARSH, ISABEL R Ot 285.9 08/06/2015 JULIANN MARSH, ISABEL R Ot 460 08/06/2015 AMRIBELL MARAVILLA BUS DRIVER/MONITOR Ot 272.4 08/06/2015 MARIBELL MARAVILLA BUS DRIVER/MONITOR Ot 401.9 08/06/2015 MARIBELL MARAVILLA BUS DRIVER/MONITOR Ot 414.00 08/06/2015 JULIANN MARSH, ISABEL R Ot 348.89 08/06/2015 JULIANN MARSH, ISABEL R Ot 437.1 08/06/2015 JULIANN MARSH, ISABEL R Ot 780.97 08/06/2015 JULIANN MARSH, ISABEL R Ot 782.0 08/06/2015 JULIANN MARSH, ISABEL R Ot V76.12 08/06/2015 Ot 250.01 08/06/2015 DAVE MARSH FACC, ALI FACP CCDS Ot D63.1 08/06/2015 DAVE MARSH FACC, ALI FACP CCDS Ot E11.9 08/06/2015 DAVE MARSH FACC, ALI FACP CCDS Ot E66.8 08/06/2015 DAVE MARSH FACC, ALI FACP CCDS Ot I10 08/06/2015 DAVE MARSH FACC, ALI FACP CCDS Ot I25.10 08/06/2015 DAVE MARSH FACC, ALI FACP CCDS Ot J43.8 08/06/2015 NICOLETTE MARSH, DULCE Ot E11.9 08/06/2015 NICOLETTE MARSH, DULCE Ot E66.9 08/06/2015 NICOLETTE MARSH, DULCE Ot I12.9 08/06/2015 NICOLETTE MARSH, DULCE Ot I25.10 08/06/2015 NICOLETTE MARSH, DULCE Ot J44.9 08/06/2015 NICOLETTE MARSH, DULCE Ot N18.3 08/06/2015 NICOLETTE MARSH, DULCE Ot 403.90 08/06/2015 NICOLETTE MARSH, DULCE Ot 585.3 08/06/2015 ORA MARSH, MALVIN K Ot D63.1 08/06/2015 ORA MARSH, MALVIN K Ot E03.9 08/06/2015 ORA MARSH, MALVIN K Ot E11.22 08/06/2015 ORA MARSH, MALVIN K Ot E66.01 08/06/2015 ORA MARSH, MALVIN K Ot E83.42 08/06/2015 ORA MARSH, MALVIN K Ot F32.9 08/06/2015 ORA MARSH, MALVIN K Ot F41.9 08/06/2015 ORA MARSH, MALVIN K Ot I12.9 08/06/2015 ORA MARSH, MALVIN K Ot I25.10 08/06/2015 ORA MARSH, MALVIN K Ot I65.23 08/06/2015 ORA MARSH, MALVIN K Ot N18.9 08/06/2015 ORA MARSH, MALVIN K Ot Z68.41 08/06/2015 ORA MARSH, MALVIN K Ot Z79.4 08/06/2015 ORA MARSH, MALVIN K Ot Z79.899 09/02/2015 ORA MARSH, MALVIN Darden Ot D63.1 09/02/2015 ORA MARSH, MALVIN Darden Ot E03.9 09/02/2015 ORA MARSH, MALVIN Darden Ot E11.22 09/02/2015 ORA MARSH, MALVIN Darden Ot E66.01 09/02/2015 ORA MARSH, MALVIN Darden Ot E83.42 09/02/2015 ORA MARSH, MALVIN Darden Ot F32.9 09/02/2015 ORA MARSH, MALVIN Darden Ot F41.9 09/02/2015 ORA MARSH, MALVIN Darden Ot I12.9 09/02/2015 ORA MARSH, MALVIN Darden Ot I25.10 09/02/2015 ORA MARSH, MALVIN Darden Ot I65.23 09/02/2015 ORA MARSH, MALVIN Darden Ot N18.9 09/02/2015 ORA MARSH, MALVIN Darden Ot Z68.41 09/02/2015 ORA MARSH, MALVIN Darden Ot Z79.4 09/02/2015 ORA MARSH, MALVIN Darden Ot Z79.899 09/02/2015 Ot 414.01 09/02/2015 Ot 272.4 09/02/2015 Ot V58.69 09/02/2015 Ot 414.00 09/02/2015 JULIANN MARSH, ISABEL R Ot 300.00 09/02/2015 JULIANN MARSH, ISABEL R Ot 311 09/02/2015 MARIBELL MARAVILLA BUS DRIVER/MONITOR Ot 790.6 09/02/2015 JULIANN MARSH, ISABEL R Ot 285.9 09/02/2015 JULIANN MARSH, ISABEL R Ot 460 09/02/2015 MARIBELL MARAVILLA BUS DRIVER/MONITOR Ot 272.4 09/02/2015 MARIBELL MARAVILLA BUS DRIVER/MONITOR Ot 401.9 09/02/2015 MARIBELL MARAVILLA BUS DRIVER/MONITOR Ot 414.00 09/02/2015 JULIANN MARSH, ISABEL R Ot 348.89 09/02/2015 JULIANN MARSH, ISABEL R Ot 437.1 09/02/2015 JULIANN MARSH, ISABEL R Ot 780.97 09/02/2015 JULIANN MARSH, ISABEL R Ot 782.0 09/02/2015 JULIANN MARSH, ISABEL R Ot V76.12 09/02/2015 Ot 250.01 09/02/2015 DAVE MARSH FACC, ALI FACP CCDS Ot D63.1 09/02/2015 DAVE MARSH FACC, ALI FACP CCDS Ot E11.9 09/02/2015 DAVE MARSH FACC, ALI FACP CCDS Ot E66.8 09/02/2015 DAVE MARSH FACC, ALI FACP CCDS Ot I10 09/02/2015 DAVE MARSH FACC, ALI FACP CCDS Ot I25.10 09/02/2015 DAVE MARSH FACC, ALI FACP CCDS Ot J43.8 09/02/2015 NICOLETTE MARSH, DULCE Ot E11.9 09/02/2015 NICOLETTE MARSH, DULCE Ot E66.9 09/02/2015 NICOLETTE MARSH, DULCE Ot I12.9 09/02/2015 NICOLETTE MARSH, DULCE Ot I25.10 09/02/2015 NICOLETTE MARSH, DULCE Ot J44.9 09/02/2015 NICOLETTE MARSH, DULCE Ot N18.3 09/02/2015 NICOLETTE MARSH, DULCE Ot 403.90 09/02/2015 NICOLETTE MARSH, DULCE Ot 585.3 09/02/2015 ORA MARSH, MALVIN Adelso Ot D63.1 09/02/2015 ORA MARSH, MALVIN K Ot E03.9 09/02/2015 ORA MARSH, MALVIN Adelso Ot E11.22 09/02/2015 ORA AMRSH, MALVIN Adelso Ot E66.01 09/02/2015 ORA MARSH, MALVIN K Ot E83.42 09/02/2015 ORA MARSH, MALVIN K Ot F32.9 09/02/2015 ORA MARSH, MALVIN Adelso Ot F41.9 09/02/2015 ORA MARSH, MALVIN K Ot I12.9 09/02/2015 ORA MARSH, MALVIN K Ot I25.10 09/02/2015 ORA MARSH, MALVIN K Ot I65.23 09/02/2015 ORA MARSH, MALVIN K Ot N18.9 09/02/2015 ORA MARSH, MALVIN Adelso Ot Z68.41 09/02/2015 ORA MARSH, MALVIN Adelso Ot Z79.4 09/02/2015 ORA MARSH, MALVIN Adelso Ot Z79.899 09/04/2015 ORA MARSH, MALVIN Adelso Ot 244.9 HYPOTHYROIDISM NOS 09/04/2015 ORA MARSH, MALVIN Darden Ot 250.40 DIAB W RENAL MANIFEST, TYPE II OR UNSPEC 09/04/2015 MALVIN PAYAN MD, Ot 275.2 DIS MAGNESIUM METABOLISM 09/04/2015 MALVIN PAYAN MD Ot 278.01 MORBID OBESITY 09/04/2015 MALVIN PAYAN MD, Ot 285.21 ANEMIA IN CHRONIC KIDNEY DISEASE 09/04/2015 MALVIN PAYAN MD, Ot 300.00 ANXIETY STATE NOS 09/04/2015 MALVIN PAYAN MD Ot 433.10 CAROTID ARTERY OCCLUSION W O CEREBRAL IN 09/04/2015 MALVIN PAYAN MD Ot 585.9 CHRONIC KIDNEY DISEASE, UNSPECIFIED 09/04/2015 MALVIN PAYAN MD, Ot D63.1 ANEMIA IN CHRONIC KIDNEY DISEASE 09/04/2015 MALVIN PAYAN MD, Ot E03.9 HYPOTHYROIDISM, UNSPECIFIED 09/04/2015 MALVIN PAYAN MD Ot E11.22 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 09/04/2015 MALVIN PAYAN MD, Ot E66.01 MORBID (SEVERE) OBESITY DUE TO EXCESS CA 09/04/2015 MALVIN PAYAN MD, Ot E83.42 HYPOMAGNESEMIA 09/04/2015 MALVIN PAYAN MD, Ot F32.9 MAJOR DEPRESSIVE DISORDER, SINGLE EPISOD 09/04/2015 MALVIN PAYAN MD, Ot F41.9 ANXIETY DISORDER, UNSPECIFIED 09/04/2015 MALVIN PAYAN MD, Ot I12.9 HYPERTENSIVE CHRONIC KIDNEY DISEASE W ST 09/04/2015 MALVIN PAYAN MD, Ot I25.10 ATHSCL HEART DISEASE OF [place] CORONARY 09/04/2015 MALVIN PAYAN MD Ot I65.23 OCCLUSION AND STENOSIS OF [place] 09/04/2015 MALVIN PAYAN MD, Ot N18.9 CHRONIC KIDNEY DISEASE, UNSPECIFIED 09/04/2015 MALVIN PAYAN MD, Ot V58.67 LONG-TERM (CURRENT) USE OF INSULIN 09/04/2015 MALVIN PAYAN MD, Ot V58.69 OTH MED,LT,CURRENT USE 09/04/2015 MALVIN PAYAN MD, Ot V85.41 BODY MASS INDEX 40.0-44.9, ADULT 09/04/2015 MALVIN PAYAN MD, Ot Z68.41 BODY MASS INDEX (BMI) 40.0-44.9, ADULT 09/04/2015 MALVIN PAYAN MD, Ot Z79.4 RADIOLOGICAL HEALTH SPECIALIST (CURRENT) USE OF INSULIN 09/04/2015 MALVIN PAYAN MD, Ot Z79.899 OTHER HALF-WAY (CURRENT) DRUG THERAPY 09/09/2015 MALVIN PAYAN MD, Ot 244.9 09/09/2015 ORA MARSH, MALVIN Darden Ot 250.40 09/09/2015 ORA MARSH, MALVIN Darden Ot 275.2 09/09/2015 ORA MARSH, MALVIN Darden Ot 278.01 09/09/2015 ORA MARSH, MALVIN K Ot 285.21 09/09/2015 ORA MARSH, MALVIN K Ot 300.00 09/09/2015 ORA MARSH, MALVIN Darden Ot 433.10 09/09/2015 ORA MARSH, MALVIN Darden Ot 585.9 09/09/2015 ORA MARSH, MALVIN K Ot D63.1 09/09/2015 ORA MARSH, MALVIN K Ot E03.9 09/09/2015 ORA MARSH, MALVIN K Ot E11.22 09/09/2015 ORA MARSH, MALVIN K Ot E66.01 09/09/2015 ORA MARSH, MALVIN K Ot E83.42 09/09/2015 ORA MARSH, MALVIN Adelso Ot F32.9 09/09/2015 ORA MARSH, MALVIN Darden Ot F41.9 09/09/2015 ORA MARSH, MALVIN Darden Ot I12.9 09/09/2015 ORA MARSH, MALVIN Darden Ot I25.10 09/09/2015 ORA MARSH, MALVIN K Ot I65.23 09/09/2015 ORA MARSH, MALVIN Darden Ot N18.9 09/09/2015 ORA MARSH, MALVIN Darden Ot V58.67 09/09/2015 ORA MARSH, MALVIN Darden Ot V58.69 09/09/2015 ORA MARSH, MALVIN Darden Ot V85.41 09/09/2015 ORA MARSH, MALVIN Darden Ot Z68.41 09/09/2015 ORA MARSH, MALVIN Darden Ot Z79.4 09/09/2015 ORA MARSH, MALVIN Darden Ot Z79.899 09/24/2015 ORA MARSH, MALVIN Darden Ot D63.1 09/24/2015 ORA MARSH, MALVIN Darden Ot E03.9 09/24/2015 ORA MARSH, MALVIN K Ot E11.22 09/24/2015 ORA MARSH, MALVIN Adelso Ot E66.01 09/24/2015 ORA MARSH, MALVIN Adelso Ot E83.42 09/24/2015 ORA MARSH, MALVIN K Ot F32.9 09/24/2015 ORA MARSH, MALVIN Darden Ot F41.9 09/24/2015 ORA MARSH, MALVIN K Ot I12.9 09/24/2015 ORA MARSH, MALVIN Darden Ot I25.10 09/24/2015 ORA MARSH, MALVIN Darden Ot I65.23 09/24/2015 ORA MARSH, MALVIN Darden Ot N18.9 09/24/2015 ORA MARSH, MALVIN Darden Ot Z68.41 09/24/2015 ORA MARSH, MALVIN Darden Ot Z79.4 09/24/2015 ORA MARSH, MALVIN Darden Ot Z79.899 10/22/2015 Ot 414.01 10/22/2015 Ot 272.4 10/22/2015 Ot V58.69 10/22/2015 Ot 414.00 10/22/2015 JULIANN MARSH, ISABEL R Ot 300.00 10/22/2015 JULIANN MARSH, ISABEL R Ot 311 10/22/2015 LEONIDES MARAVILLAHER L BUS DRIVER/MONITOR Ot 790.6 10/22/2015 JULIANN MARSH, ISABEL R Ot 285.9 10/22/2015 JULIANN MARSH, ISABEL R Ot 460 10/22/2015 LEONIDES MARAVILLAHER L BUS DRIVER/MONITOR Ot 272.4 10/22/2015 LEONIDES MARAVILLAHER L BUS DRIVER/MONITOR Ot 401.9 10/22/2015 TAIWO MARIBELL L BUS DRIVER/MONITOR Ot 414.00 10/22/2015 JULIANN MARSH, ISABEL R Ot 348.89 10/22/2015 JULIANN MARSH, ISABEL R Ot 437.1 10/22/2015 JULIANN MARSH, ISABEL R Ot 780.97 10/22/2015 JULIANN MARSH, ISABEL R Ot 782.0 10/22/2015 JULIANN MARSH, ISABEL R Ot V76.12 10/22/2015 Ot 250.01 10/22/2015 DAVE MARSH FACC, ALI FACP CCDS Ot D63.1 10/22/2015 DAVE MARSH FACC, ALI FACP CCDS Ot E11.9 10/22/2015 DAVE MARSH FACC, ALI FACP CCDS Ot E66.8 10/22/2015 DAVE MARSH FACC, ALI FACP CCDS Ot I10 10/22/2015 DAVE MARSH FACC, ALI FACP CCDS Ot I25.10 10/22/2015 DAVE MARSH FACC, ALI FACP CCDS Ot J43.8 10/22/2015 NICOLETTE MARSH, DULCE Ot E11.9 10/22/2015 NICOLETTE MARSH, DULCE Ot E66.9 10/22/2015 NICOLETTE MARSH, DULCE Ot I12.9 10/22/2015 NICOLETTE MARSH, DULCE Ot I25.10 10/22/2015 NICOLETTE MARSH, DULCE Ot J44.9 10/22/2015 NICOLETTE MARSH, DULCE Ot N18.3 10/22/2015 NICOLETTE MARSH, DULCE Ot 403.90 10/22/2015 NICOLETTE MARSH, DULCE Ot 585.3 10/22/2015 ORA MARSH, MALVIN Darden Ot D63.1 10/22/2015 ORA MARSH, MALVIN Darden Ot E03.9 10/22/2015 ORA MARSH, MALVIN Darden Ot E11.22 10/22/2015 ORA MARSH, MALVIN Darden Ot E66.01 10/22/2015 ORA MARSH, MALVIN Darden Ot E83.42 10/22/2015 ORA MARSH, MALVIN Darden Ot F32.9 10/22/2015 ORA MARSH, MALVIN Darden Ot F41.9 10/22/2015 ORA MARSH, MALVIN Darden Ot I12.9 10/22/2015 ORA MARSH, MALVIN Darden Ot I25.10 10/22/2015 ORA MARSH, MALVIN Darden Ot I65.23 10/22/2015 ORA MARSH, MALVIN Darden Ot N18.9 10/22/2015 ORA MARSH, MALVIN Darden Ot Z68.41 10/22/2015 ORA MARSH, MALVIN Darden Ot Z79.4 10/22/2015 ORA MARSH, MALVIN Darden Ot Z79.899 10/24/2015 DAVE MARSH FAC, ALI FACP CCDS Ot D63.1 10/24/2015 DAVE MARSH FACC, ALI FACP CCDS Ot E11.9 10/24/2015 DAVE MARSH FACC, ALI FACP CCDS Ot I25.10 10/24/2015 DAVE MARSH FACC, ALI FACP CCDS Ot I65.23 10/24/2015 DAVE MARSH FACC, ALI FACP CCDS Ot I73.9 10/24/2015 DAVE MARSH FACC, ALI FACP CCDS Ot J43.8 10/24/2015 DAVE MARSH FACC, ALI FACP CCDS Ot R00.2 11/04/2015 Ot 414.01 11/04/2015 Ot 272.4 11/04/2015 Ot V58.69 11/04/2015 Ot 414.00 11/04/2015 JULIANN MARSH, ISABEL Zaidi Ot 300.00 11/04/2015 JULIANN MARSH, ISABEL R Ot 311 11/04/2015 JOSE ARMANDOMARIBELL SALEH BUS DRIVER/MONITOR Ot 790.6 11/04/2015 JULIANN MARSH, ISABEL R Ot 285.9 11/04/2015 JULIANN MARSH, ISABEL R Ot 460 11/04/2015 JOSE ARMANDOMARIBELL SALEH BUS DRIVER/MONITOR Ot 272.4 11/04/2015 JOSE ARMANDOMARIBELL SALEH BUS DRIVER/MONITOR Ot 401.9 11/04/2015 JOSE ARMANDOMARIBELL SALEH L BUS DRIVER/MONITOR Ot 414.00 11/04/2015 JULIANN MARSH, ISABEL R Ot 348.89 11/04/2015 JULIANN MARSH, ISABEL R Ot 437.1 11/04/2015 JULIANN MARSH, ISABEL R Ot 780.97 11/04/2015 JULIANN MARSH, ISABEL R Ot 782.0 11/04/2015 JULIANN MARSH, ISABEL R Ot V76.12 11/04/2015 Ot 250.01 11/04/2015 DAVE MARSH FACC, ALI FACP CCDS Ot D63.1 11/04/2015 DAVE MARSH FACC, ALI FACP CCDS Ot E11.9 11/04/2015 DAVE MARSH FACC, ALI FACP CCDS Ot E66.8 11/04/2015 DAVE MARSH FACC, ALI FACP CCDS Ot I10 11/04/2015 DAVE MARSH FACC, ALI FACP CCDS Ot I25.10 11/04/2015 DAVE MARSH FACC, ALI FACP CCDS Ot J43.8 11/04/2015 NICOLETTE MARSH, DULCE Ot E11.9 11/04/2015 NICOLETTE MARSH, DULCE Ot E66.9 11/04/2015 NICOLETTE MARSH, DULCE Ot I12.9 11/04/2015 NICOLETTE MARSH, DULCE Ot I25.10 11/04/2015 NICOLETTE MARSH, DULCE Ot J44.9 11/04/2015 NICOLETTE MARSH, DULCE Ot N18.3 11/04/2015 NICOLETTE MARSH, DULCE Ot 403.90 11/04/2015 NICOLETTE MARSH, DULCE Ot 585.3 11/04/2015 ORA MARSH, MALVIN Darden Ot D63.1 11/04/2015 ORA MARSH, MALVIN Darden Ot E03.9 11/04/2015 ORA MARSH, MALVIN Darden Ot E11.22 11/04/2015 ORA MARSH, MALVIN Darden Ot E66.01 11/04/2015 ORA MARSH, MALVIN Darden Ot E83.42 11/04/2015 ORA MARSH, MALVIN Darden Ot F32.9 11/04/2015 ORA MARSH, MALVIN Darden Ot F41.9 11/04/2015 ORA MARSH, MALVIN Darden Ot I12.9 11/04/2015 ORA MARSH, MALVIN Darden Ot I25.10 11/04/2015 ORA MARSH, MALVIN Darden Ot I65.23 11/04/2015 ORA MARSH, MALVIN Darden Ot N18.9 11/04/2015 ORA MARSH, MALVIN Darden Ot Z68.41 11/04/2015 ORA MARSH, MALVIN Darden Ot Z79.4 11/04/2015 ORA MARSH, MALVIN Darden Ot Z79.899 11/04/2015 DAVE MARSH FACC, ALI FACP CCDS Ot E11.21 11/04/2015 DAVE MARSH FACC, ALI FACP CCDS Ot I25.10 11/04/2015 DAVE MARSH FACC, ALI FACP CCDS Ot I65.23 11/04/2015 DAVE MARSH FACC, ALI FACP CCDS Ot I73.9 11/04/2015 DAVE MARSH FACC, ALI FACP CCDS Ot J44.9 11/04/2015 DAVE MARSH FACC, ALI FACP CCDS Ot N18.9 11/04/2015 DAVE MARSH FACC, ALI FACP CCDS Ot R00.2 11/04/2015 DAVE MARSH FACC, ALI FACP CCDS Ot D63.1 11/04/2015 DAVE MARSH FACC, ALI FACP CCDS Ot E11.9 11/04/2015 DAVE MARSH FACC, ALI FACP CCDS Ot I25.10 11/04/2015 DAVE MARSH FACC, ALI FACP CCDS Ot I65.23 11/04/2015 DAVE MARSH FACC, ALI FACP CCDS Ot I73.9 11/04/2015 DAVE MARSH FACC, ALI FACP CCDS Ot J43.8 11/04/2015 DAVE MARSH FACC, ALI FACP CCDS Ot R00.2 11/11/2015 DAVE MARSH FACC, ALI FACP CCDS Ot E11.21 11/11/2015 DAVE MARSH FACC, ALI FACP CCDS Ot I25.10 11/11/2015 DAVE MD FAC, ALI FACP CCDS Ot I65.23 11/11/2015 DAVE MD FAC, ALI FACP CCDS Ot I73.9 11/11/2015 [facility] FAC, ALI FACP CCDS Ot J44.9 11/11/2015 DAVE FAC, ALI FACP CCDS Ot N18.9 11/11/2015 [facility] FAC, ALI FACP CCDS Ot R00.2 11/11/2015 [facility] FAC, ALI FACP CCDS Ot D63.1 11/11/2015 [facility] FAC, ALI FACP CCDS Ot E11.9 11/11/2015 [facility], ALI FACP CCDS Ot I25.10 11/11/2015 [facility], ALI FACP CCDS Ot I65.23 11/11/2015 [facility], ALI FACP CCDS Ot I73.9 11/11/2015 [facility], ALI FACP CCDS Ot J43.8 11/11/2015 [facility], ALI FACP CCDS Ot R00.2 11/18/2015 Ot 414.01 11/18/2015 Ot 272.4 11/18/2015 Ot V58.69 11/18/2015 Ot 414.00 11/18/2015 JULIANN MARSH, ISABEL R Ot 300.00 11/18/2015 JULIANN MARSH, ISABEL R Ot 311 11/18/2015 MARIBELL MARAVILLA L BUS DRIVER/MONITOR Ot 790.6 11/18/2015 JULIANN MARSH, ISABEL R Ot 285.9 11/18/2015 JULIANN MARSH, ISABEL R Ot 460 11/18/2015 MARIBELL MARAVILLA L BUS DRIVER/MONITOR Ot 272.4 11/18/2015 MARIBELL MARAVILLA L BUS DRIVER/MONITOR Ot 401.9 11/18/2015 LEONIDES MARAVILLAHER L BUS DRIVER/MONITOR Ot 414.00 11/18/2015 JULIANN MARSH, ISABEL R Ot 348.89 11/18/2015 JULIANN MARSH, ISABEL R Ot 437.1 11/18/2015 JLUIANN MARSH, ISABEL R Ot 780.97 11/18/2015 JULIANN MARSH, ISABEL R Ot 782.0 11/18/2015 JULIANN MARSH, ISABEL R Ot V76.12 11/18/2015 Ot 250.01 11/18/2015 DAVE MARSH FACC, ALI FACP CCDS Ot D63.1 11/18/2015 DAVE MARSH FACC, ALI FACP CCDS Ot E11.9 11/18/2015 DAVE MARSH FACC, ALI FACP CCDS Ot E66.8 11/18/2015 DAVE MARSH FACC, ALI FACP CCDS Ot I10 11/18/2015 DAVE MARSH FACC, ALI FACP CCDS Ot I25.10 11/18/2015 DAVE MARSH FACC, ALI FACP CCDS Ot J43.8 11/18/2015 NICOLETTE MARSH, DULCE Ot E11.9 11/18/2015 NICOLETTE MARSH, DULCE Ot E66.9 11/18/2015 NICOLETTE MARSH, DULCE Ot I12.9 11/18/2015 NICOLETTE MARSH, DULCE Ot I25.10 11/18/2015 NICOLETTE MARSH, DULCE Ot J44.9 11/18/2015 NICOLETTE MARSH, DULCE Ot N18.3 11/18/2015 NICOLETTE MARSH, DULCE Ot 403.90 11/18/2015 NICOLETTE MARSH, DULCE Ot 585.3 11/18/2015 ORA MARSH, MALVIN Adelso Ot D63.1 11/18/2015 ORA MARSH, MALVIN K Ot E03.9 11/18/2015 ORA MARSH, MALVIN K Ot E11.22 11/18/2015 ORA MARSH, MALVIN K Ot E66.01 11/18/2015 ORA MARSH, MALVIN K Ot E83.42 11/18/2015 ORA MARSH, MALVIN K Ot F32.9 11/18/2015 ORA MARSH, MALVIN K Ot F41.9 11/18/2015 ORA MARSH, MALVIN K Ot I12.9 11/18/2015 ORA MARSH, MALVIN K Ot I25.10 11/18/2015 ORA MARSH, MALVIN K Ot I65.23 11/18/2015 ORA MARSH, MALVIN K Ot N18.9 11/18/2015 ORA MARSH, MALVIN Darden Ot Z68.41 11/18/2015 ORA MARSH, MALVIN K Ot Z79.4 11/18/2015 ORA MARSH, MALVIN K Ot Z79.899 11/18/2015 DAVE MARSH FACC, ALI FACP CCDS Ot E11.21 11/18/2015 DAVE MARSH FACC, ALI FACP CCDS Ot I25.10 11/18/2015 DAVE MARSH FAC, ALI FACP CCDS Ot I65.23 11/18/2015 DAVE MARSH FAC, ALI FACP CCDS Ot I73.9 11/18/2015 DAVE MARSH FAC, ALI FACP CCDS Ot J44.9 11/18/2015 DAVE MARSH FAC, ALI FACP CCDS Ot N18.9 11/18/2015 DAVE MARSH FAC, ALI FACP CCDS Ot R00.2 11/18/2015 DAVE MARSH [facility], ALI FACP CCDS Ot D63.1 11/18/2015 DAVE MARSH [facility], ALI FACP CCDS Ot E11.9 11/18/2015 DAVE MD [facility], ALI FACP CCDS Ot I25.10 11/18/2015 DAVE MARSH [facility], ALI FACP CCDS Ot I65.23 11/18/2015 DAVE MARSH [facility], ALI FACP CCDS Ot I73.9 11/18/2015 DAVE MD [facility], ALI FACP CCDS Ot J43.8 11/18/2015 DAVE MARSH [facility], ALI FACP CCDS Ot R00.2 11/18/2015 JULIANN MARSH, ISABEL R Ot E11.9 11/18/2015 JULIANN MARSH, ISABEL R Ot I10 11/21/2015 JULIANN MARSH, ISABEL R Ot E11.9 11/21/2015 JULIANN MARSH, ISABEL R Ot I10 12/04/2015 MALVIN PAYAN MD Ot D63.1 ANEMIA IN CHRONIC KIDNEY DISEASE 12/04/2015 MALVIN PAYAN MD Ot E03.9 HYPOTHYROIDISM, UNSPECIFIED 12/04/2015 MALVIN PAYAN MD Ot E11.22 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 12/04/2015 MALVIN PAYAN MD Ot E66.01 MORBID (SEVERE) OBESITY DUE TO EXCESS CA 12/04/2015 MALVIN PAYAN MD Ot E83.42 HYPOMAGNESEMIA 12/04/2015 MALVIN PAYAN MD Ot F32.9 MAJOR DEPRESSIVE DISORDER, SINGLE EPISOD 12/04/2015 MALVIN PAYAN MD Ot F41.9 ANXIETY DISORDER, UNSPECIFIED 12/04/2015 MALVIN PAYAN MD K Ot I12.9 HYPERTENSIVE CHRONIC KIDNEY DISEASE W ST 12/04/2015 ORA MARSH, MALVIN Darden Ot I25.10 ATHSCL HEART DISEASE OF [place] CORONARY 12/04/2015 ORA MARSH, MALVIN Darden Ot I65.23 OCCLUSION AND STENOSIS OF [place]ILATERAL [place] 12/04/2015 ORA MARSH, MALVIN Darden Ot N18.9 CHRONIC KIDNEY DISEASE, UNSPECIFIED 12/04/2015 ORA MARSH, MALVIN Darden Ot Z68.41 BODY MASS INDEX (BMI) 40.0-44.9, ADULT 12/04/2015 ORA MARSH, MALVIN Darden Ot Z79.4 HALF-WAY (CURRENT) USE OF INSULIN 12/04/2015 ORA MARSH, MALVIN Darden Ot Z79.899 OTHER RADIOLOGICAL HEALTH SPECIALIST (CURRENT) DRUG THERAPY 12/12/2015 ORA MARSH, MALVIN Darden Ot D63.1 12/12/2015 ORA MARSH, MALVIN Darden Ot E03.9 12/12/2015 ORA MARSH, MALVIN Darden Ot E11.22 12/12/2015 ORA MARSH, MALVIN Darden Ot E66.01 12/12/2015 ORA MARSH, MALVIN Adelso Ot E83.42 12/12/2015 ORA MARSH, MALVIN Darden Ot F32.9 12/12/2015 ORA MARSH, MALVIN Darden Ot F41.9 12/12/2015 ORA MARSH, MALVIN Darden Ot I12.9 12/12/2015 ORA MARSH, MALVIN Darden Ot I25.10 12/12/2015 ORA MARSH, MALVIN Darden Ot I65.23 12/12/2015 ORA MARSH, MALVIN Darden Ot N18.9 12/12/2015 ORA MARSH, MALVIN Darden Ot Z68.41 12/12/2015 ORA MARSH, MALVIN Darden Ot Z79.4 12/12/2015 ORA MARSH, MALVIN Darden Ot Z79.899 12/12/2015 NICOLETTE MARSH, DULCE Ot I12.9 12/12/2015 NICOLETTE MARSH, DULCE Ot N18.3 12/12/2015 NICOLETTE MARSH, DULCE Ot N25.81 12/13/2015 NICOLETTE MARSH, DULCE Ot I12.9 12/13/2015 NICOLETTE MARSH, DULCE Ot N18.3 12/13/2015 NICOLETTE MARSH, DULCE Ot N25.81 12/13/2015 NICOLETTE MARSH, DULCE Ot I12.9 12/13/2015 NICOLETTE MARSH, DULCE Ot N18.3 12/13/2015 NICOLETTE MARSH, DULCE Ot N25.81 12/13/2015 NICOLETTE MARSH, DULCE Ot I12.9 12/13/2015 NICOLETTE MARSH, DULCE Ot N18.3 12/13/2015 NICOLETTE MARSH, DULCE Ot N25.81 12/24/2015 DAVE MARSH FACC, ALI FACP CCDS Ot D63.1 ANEMIA IN CHRONIC KIDNEY DISEASE 12/24/2015 DAVE MARSH FACC, ALI FACP CCDS Ot E11.9 TYPE 2 DIABETES MELLITUS WITHOUT COMPLIC 12/24/2015 DAVE MARSH FACC, ALI FACP CCDS Ot E66.8 OTHER OBESITY 12/24/2015 DAVE MARSH FACC, ALI FACP CCDS Ot I10 ESSENTIAL (PRIMARY) HYPERTENSION 12/24/2015 DAVE MARSH FACC, ALI FACP CCDS Ot I25.10 ATHSCL HEART DISEASE OF [place] CORONARY 12/24/2015 DAVE MARSH FAC, ALI FACP CCDS Ot J43.8 OTHER EMPHYSEMA 12/30/2015 NICOLETTE MARSH, DULCE Ot I12.9 HYPERTENSIVE CHRONIC KIDNEY DISEASE W ST 12/30/2015 NICOLETTE MARSH, DULCE Ot N18.3 CHRONIC KIDNEY DISEASE, STAGE 3 (MODERAT 12/30/2015 NICOLETTE MARSH, DULCE Ot 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 01/09/2016 NICOLETTE MARSH, DULCE Ot N18.3 CHRONIC KIDNEY DISEASE, STAGE 3 (MODERAT 01/09/2016 NICOLETTE MARSH, DULCE Ot R31.9 HEMATURIA, UNSPECIFIED 01/14/2016 Ot 414.01 CORONARY ATHEROSCLEROSIS OF [place] CORON 01/14/2016 Ot 272.4 HYPERLIPIDEMIA NEC/NOS 01/14/2016 Ot V58.69 OTH MED,LT,CURRENT USE 01/14/2016 Ot 414.00 CORON ATHEROSCLER NOS TYPE VESSEL, NATIV 01/14/2016 ISABEL HUMPHREYS MD Ot 300.00 ANXIETY STATE NOS 01/14/2016 ISABEL HUMPHREYS MD Ot 311 DEPRESSIVE DISORDER NEC 01/14/2016 MARIBELL MARAVILLA BUS DRIVER/MONITOR Ot 790.6 ABN BLOOD CHEMISTRY NEC 01/14/2016 ISABEL HUMPHREYS MD Ot 285.9 ANEMIA NOS 01/14/2016 SEGLIE MD, ISABEL R Ot 460 ACUTE NASOPHARYNGITIS 01/14/2016 JOSE ARMANDOMARIBELL SALEH Dustin BUS DRIVER/MONITOR Ot 272.4 HYPERLIPIDEMIA NEC/NOS 01/14/2016 TAIWO MARIBELL Chan BUS DRIVER/MONITOR Ot 401.9 HYPERTENSION NOS 01/14/2016 MARIBELL MARAVILLA BUS DRIVER/MONITOR Ot 414.00 CORON ATHEROSCLER NOS TYPE VESSEL, NATIV 01/14/2016 JULIANN MARSH, ISABEL R Ot 348.89 OTHER CONDITIONS OF BRAIN 01/14/2016 JONI HUMPHREYS MDYD R Ot 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 01/14/2016 JULIANN MARSH, ISABEL R Ot 780.97 ALTERED MENTAL STATUS 01/14/2016 JONI HUMPHREYS MDYD R Ot 782.0 SKIN SENSATION DISTURB 01/14/2016 JONI HUMPHREYS MDYD R Ot V76.12 OTH SCREEN MAMMO-MALIGN NEOPLASM OF [place] 01/14/2016 Ot 250.01 DIAB AMBAR WO COMPL, TYPE I [JUVENILE TYP 01/14/2016 DAVE MARSH FACC, ALI FACP CCDS Ot D63.1 ANEMIA IN CHRONIC KIDNEY DISEASE 01/14/2016 DAVE CHAVEZC, ALI FACP CCDS Ot E11.9 TYPE 2 DIABETES MELLITUS WITHOUT COMPLIC 01/14/2016 DAVE MARSH FACC, ALI FACP CCDS Ot E66.8 OTHER OBESITY 01/14/2016 DAVE CHAVEZC, ALI FACP CCDS Ot I10 ESSENTIAL (PRIMARY) HYPERTENSION 01/14/2016 DAVE MARSH FACC, ALI FACP CCDS Ot I25.10 ATHSCL HEART DISEASE OF [place] CORONARY 01/14/2016 DAVE MARSH FACC, ALI FACP CCDS Ot J43.8 OTHER EMPHYSEMA 01/14/2016 DULCE WILL MD Ot E11.9 TYPE 2 DIABETES MELLITUS WITHOUT COMPLIC 01/14/2016 DULCE WILL MD Ot E66.9 OBESITY, UNSPECIFIED 01/14/2016 DULCE WILL MD Ot I12.9 HYPERTENSIVE CHRONIC KIDNEY DISEASE W ST 01/14/2016 DULCE WILL MD Ot I25.10 ATHSCL HEART DISEASE OF [place] CORONARY 01/14/2016 DULCE WILL MD Ot J44.9 CHRONIC OBSTRUCTIVE PULMONARY DISEASE, U 01/14/2016 DULCE WILL MD Ot N18.3 CHRONIC KIDNEY DISEASE, STAGE 3 (MODERAT 01/14/2016 NICOLETTE MARSH, DULCE Ot 403.90 HYPTNSV CHR KID DIS, UNSPEC, W CHR KD ST 01/14/2016 DULCE WILL MD Ot 585.3 CHRONIC KIDNEY DISEASE, STAGE III (MODER 01/14/2016 DAVE MARSH FACC, ALI FACP CCDS Ot E11.21 TYPE 2 DIABETES MELLITUS WITH DIABETIC N 01/14/2016 DAVE MARSH FACC, ALI FACP CCDS Ot I25.10 ATHSCL HEART DISEASE OF [place] CORONARY 01/14/2016 DAVE MARSH FACC, ALI FACP CCDS Ot I65.23 OCCLUSION AND STENOSIS OF [place] 01/14/2016 DAVE MARSH FACC, ALI FACP CCDS Ot I73.9 PERIPHERAL VASCULAR DISEASE, UNSPECIFIED 01/14/2016 DAVE MARSH FACC, ALI FACP CCDS Ot J44.9 CHRONIC OBSTRUCTIVE PULMONARY DISEASE, U 01/14/2016 DAVE MARSH FACC, ALI FACP CCDS Ot N18.9 CHRONIC KIDNEY DISEASE, UNSPECIFIED 01/14/2016 DAVE MARSH FACC, ALI FACP CCDS Ot R00.2 PALPITATIONS 01/14/2016 DAVE MARSH FACC, ALI FACP CCDS Ot D63.1 ANEMIA IN CHRONIC KIDNEY DISEASE 01/14/2016 DAVE MARSH FACC, ALI FACP CCDS Ot E11.9 TYPE 2 DIABETES MELLITUS WITHOUT COMPLIC 01/14/2016 DAVE MARSH FACC, ALI FACP CCDS Ot I25.10 ATHSCL HEART DISEASE OF [place] CORONARY 01/14/2016 DAVE MARSH FACC, ALI FACP CCDS Ot I65.23 OCCLUSION AND STENOSIS OF [place] 01/14/2016 DAVE MARSH FACC, ALI FACP CCDS Ot I73.9 PERIPHERAL VASCULAR DISEASE, UNSPECIFIED 01/14/2016 DAVE MARSH FACC, ALI FACP CCDS Ot J43.8 OTHER EMPHYSEMA 01/14/2016 DAVE MARSH FACC, ALI FACP CCDS Ot R00.2 PALPITATIONS 01/14/2016 KARI EDEN APRN Ot G47.33 OBSTRUCTIVE SLEEP APNEA (ADULT) ( PEDIATR 01/14/2016 KARI EDEN APRN Ot R06.00 DYSPNEA, UNSPECIFIED 01/14/2016 ISABEL HUMPHREYS MD Ot E11.9 TYPE 2 DIABETES MELLITUS WITHOUT COMPLIC 01/14/2016 SEGLIE MD, ISABEL R Ot I10 ESSENTIAL (PRIMARY) HYPERTENSION 01/14/2016 MALVIN PAYAN MD Ot D63.1 ANEMIA IN CHRONIC KIDNEY DISEASE 01/14/2016 MALVIN PAYAN MD Ot E03.9 HYPOTHYROIDISM, UNSPECIFIED 01/14/2016 MALVIN PAYAN MD Ot E11.22 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 01/14/2016 MALVIN PAYAN MD Ot E66.01 MORBID (SEVERE) OBESITY DUE TO EXCESS CA 01/14/2016 MALVIN PAYAN MD Ot E83.42 HYPOMAGNESEMIA 01/14/2016 MALVIN PAYAN MD, Ot F32.9 MAJOR DEPRESSIVE DISORDER, SINGLE EPISOD 01/14/2016 MALVIN PAYAN MD Ot F41.9 ANXIETY DISORDER, UNSPECIFIED 01/14/2016 MALVIN PAYAN MD, Ot I12.9 HYPERTENSIVE CHRONIC KIDNEY DISEASE W ST 01/14/2016 MALVIN PAYAN MD, Ot I25.10 ATHSCL HEART DISEASE OF [place] CORONARY 01/14/2016 MALVIN PAYAN MD Ot I65.23 OCCLUSION AND STENOSIS OF [place] 01/14/2016 MALVIN PAYAN MD Ot N18.9 CHRONIC KIDNEY DISEASE, UNSPECIFIED 01/14/2016 MALVIN PAYAN MD Ot Z68.41 BODY MASS INDEX (BMI) 40.0-44.9, ADULT 01/14/2016 MALVIN PAYAN MD Ot Z79.4 RADIOLOGICAL HEALTH SPECIALIST (CURRENT) USE OF INSULIN 01/14/2016 MALVIN PAYAN MD Ot Z79.899 OTHER RADIOLOGICAL HEALTH SPECIALIST (CURRENT) DRUG THERAPY 01/14/2016 DULCE WILL MD Ot I12.9 HYPERTENSIVE CHRONIC KIDNEY DISEASE W ST 01/14/2016 DULCE WILL MD Ot N18.3 CHRONIC KIDNEY DISEASE, STAGE 3 (MODERAT 01/14/2016 DULCE WILL MD Ot 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 01/14/2016 DULCE WILL MD Ot N18.3 CHRONIC KIDNEY DISEASE, STAGE 3 (MODERAT 01/14/2016 DULCE WILL MD Ot R31.9 HEMATURIA, UNSPECIFIED 01/14/2016 Ot 414.01 CORONARY ATHEROSCLEROSIS OF [place] CORON 01/14/2016 Ot 272.4 HYPERLIPIDEMIA NEC/NOS 01/14/2016 Ot V58.69 OTH MED,LT,CURRENT USE 01/14/2016 Ot 414.00 CORON ATHEROSCLER NOS TYPE VESSEL, NATIV 01/14/2016 ISABEL HUMPHREYS MD R Ot 300.00 ANXIETY STATE NOS 01/14/2016 ISABEL HUMPHREYS MD R Ot 311 DEPRESSIVE DISORDER NEC 01/14/2016 MARIBELL MARAVILLA BUS DRIVER/MONITOR Ot 790.6 ABN BLOOD CHEMISTRY NEC 01/14/2016 ISABEL HUMPHREYS MD R Ot 285.9 ANEMIA NOS 01/14/2016 ISABEL HUMPHREYS MD R Ot 460 ACUTE NASOPHARYNGITIS 01/14/2016 MARIBELL MARAVILLA BUS DRIVER/MONITOR Ot 272.4 HYPERLIPIDEMIA NEC/NOS 01/14/2016 MARIBELL MARAVILLA BUS DRIVER/MONITOR Ot 401.9 HYPERTENSION NOS 01/14/2016 MARIBELL MARAVILLA BUS DRIVER/MONITOR Ot 414.00 CORON ATHEROSCLER NOS TYPE VESSEL, NATIV 01/14/2016 ISABEL HUMPHREYS MD R Ot 348.89 OTHER CONDITIONS OF BRAIN 01/14/2016 ISABEL HUMPHREYS MD R Ot 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 01/14/2016 ISABEL HUMPHREYS MD R Ot 780.97 ALTERED MENTAL STATUS 01/14/2016 ISABEL HUMPHREYS MD R Ot 782.0 SKIN SENSATION DISTURB 01/14/2016 ISABEL HUMPHREYS MD R Ot V76.12 OTH SCREEN MAMMO-MALIGN NEOPLASM OF [place] 01/14/2016 Ot 250.01 DIAB AMBAR WO COMPL, TYPE I [JUVENILE TYP 01/14/2016 DAVE MARSH FACC, EARL FACP CCDS Ot D63.1 ANEMIA IN CHRONIC KIDNEY DISEASE 01/14/2016 DAVE MARSH FACC, EARL CHAVEZP CCDS Ot E11.9 TYPE 2 DIABETES MELLITUS WITHOUT COMPLIC 01/14/2016 DAVE MARSH FACC, EARL FACP CCDS Ot E66.8 OTHER OBESITY 01/14/2016 DAVE MARSH FACC, EARL FACP CCDS Ot I10 ESSENTIAL (PRIMARY) HYPERTENSION 01/14/2016 DAVE MARSH FACC, EARL FACP CCDS Ot I25.10 ATHSCL HEART DISEASE OF [place] CORONARY 01/14/2016 EARL ACOSTA MD, FACC FACP CCDS Ot J43.8 OTHER EMPHYSEMA 01/14/2016 DULCE WILL MD Ot E11.9 TYPE 2 DIABETES MELLITUS WITHOUT COMPLIC 01/14/2016 DULCE WILL MD Ot E66.9 OBESITY, UNSPECIFIED 01/14/2016 NICOLETTE MARSH DULCE Ot I12.9 HYPERTENSIVE CHRONIC KIDNEY DISEASE W ST 01/14/2016 NICOLETTE MARSH, DULCE Ot I25.10 ATHSCL HEART DISEASE OF [place] CORONARY 01/14/2016 NICOLETTE MARSH DULCE Ot J44.9 CHRONIC OBSTRUCTIVE PULMONARY DISEASE, U 01/14/2016 NICOLETTE MARSH, DULCE Ot N18.3 CHRONIC KIDNEY DISEASE, STAGE 3 (MODERAT 01/14/2016 NICOLETTE MARSH, DULCE Ot 403.90 HYPTNSV CHR KID DIS, UNSPEC, W CHR KD ST 01/14/2016 NICOLETTE MARSH, DULCE Ot 585.3 CHRONIC KIDNEY DISEASE, STAGE III (MODER 01/14/2016 DAVE MARSH FACC, ALI FACP CCDS Ot E11.21 TYPE 2 DIABETES MELLITUS WITH DIABETIC N 01/14/2016 DAVE MARSH FACC, ALI FACP CCDS Ot I25.10 ATHSCL HEART DISEASE OF [place] CORONARY 01/14/2016 DAVE MARSH FACC, EARL FACP CCDS Ot I65.23 OCCLUSION AND STENOSIS OF [place]ILATERAL [place] 01/14/2016 DAVE MARSH FACC, ALI FACP CCDS Ot I73.9 PERIPHERAL VASCULAR DISEASE, UNSPECIFIED 01/14/2016 DAVE MARSH FACC, ALI FACP CCDS Ot J44.9 CHRONIC OBSTRUCTIVE PULMONARY DISEASE, U 01/14/2016 DAVE MARSH FACC, ALI FACP CCDS Ot N18.9 CHRONIC KIDNEY DISEASE, UNSPECIFIED 01/14/2016 DAVE MARSH FACC, ALI FACP CCDS Ot R00.2 PALPITATIONS 01/14/2016 DAVE MARSH FACC, ALI FACP CCDS Ot D63.1 ANEMIA IN CHRONIC KIDNEY DISEASE 01/14/2016 DAVE MARSH FACC, ALI FACP CCDS Ot E11.9 TYPE 2 DIABETES MELLITUS WITHOUT COMPLIC 01/14/2016 DAVE MARSH FACC, ALI FACP CCDS Ot I25.10 ATHSCL HEART DISEASE OF [place] CORONARY 01/14/2016 DAVE MARSH FACC, ALI FACP CCDS Ot I65.23 OCCLUSION AND STENOSIS OF [place] 01/14/2016 DAVE MARSH FACC, ALI FACP CCDS Ot I73.9 PERIPHERAL VASCULAR DISEASE, UNSPECIFIED 01/14/2016 DAVE MARSH FACC, ALI FACP CCDS Ot J43.8 OTHER EMPHYSEMA 01/14/2016 DAVE MARSH FACC, EARL FACP CCDS Ot R00.2 PALPITATIONS 01/14/2016 KARI EDEN APRN Ot G47.33 OBSTRUCTIVE SLEEP APNEA (ADULT) ( PEDIATR 01/14/2016 KARI EDEN APRN Ot R06.00 DYSPNEA, UNSPECIFIED 01/14/2016 JULIANN MARSH, ISABEL Zaidi Ot E11.9 TYPE 2 DIABETES MELLITUS WITHOUT COMPLIC 01/14/2016 ISABEL HUMPHREYS MD Ot I10 ESSENTIAL (PRIMARY) HYPERTENSION 01/14/2016 MALVIN PAYAN MD Ot D63.1 ANEMIA IN CHRONIC KIDNEY DISEASE 01/14/2016 MALVIN PAYAN MD Ot E03.9 HYPOTHYROIDISM, UNSPECIFIED 01/14/2016 MALVIN PAYAN MD Ot E11.22 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 01/14/2016 MALVIN PAYAN MD Ot E66.01 MORBID (SEVERE) OBESITY DUE TO EXCESS CA 01/14/2016 MALVIN PAYAN MD Ot E83.42 HYPOMAGNESEMIA 01/14/2016 MALVIN PAYAN MD Ot F32.9 MAJOR DEPRESSIVE DISORDER, SINGLE EPISOD 01/14/2016 MALVIN PAYAN MD Ot F41.9 ANXIETY DISORDER, UNSPECIFIED 01/14/2016 MALVIN PAYAN MD Ot I12.9 HYPERTENSIVE CHRONIC KIDNEY DISEASE W ST 01/14/2016 MALVIN PAYAN MD Ot I25.10 ATHSCL HEART DISEASE OF [place] CORONARY 01/14/2016 MALVIN PAYAN MD Ot I65.23 OCCLUSION AND STENOSIS OF [place] 01/14/2016 MALVIN PAYAN MD Ot N18.9 CHRONIC KIDNEY DISEASE, UNSPECIFIED 01/14/2016 MALVIN PAYAN MD Ot Z68.41 BODY MASS INDEX (BMI) 40.0-44.9, ADULT 01/14/2016 MALVIN PAYAN MD Ot Z79.4 HALF-WAY (CURRENT) USE OF INSULIN 01/14/2016 MALVIN PAYAN MD Ot Z79.899 OTHER RADIOLOGICAL HEALTH SPECIALIST (CURRENT) DRUG THERAPY 01/14/2016 DULCE WILL MD Ot I12.9 HYPERTENSIVE CHRONIC KIDNEY DISEASE W ST 01/14/2016 DULCE WILL MD Ot N18.3 CHRONIC KIDNEY DISEASE, STAGE 3 (MODERAT 01/14/2016 DULCE WILL MD Ot 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 O 01/14/2016 NICOLETTE MD, DULCE Ot N18.3 CHRONIC KIDNEY DISEASE, STAGE 3 (MODERAT 01/14/2016 NICOLETTE MARSH, DULCE Ot R31.9 HEMATURIA, UNSPECIFIED 01/15/2016 NICOLETTE MARSH, DULCE Ot N18.3 CHRONIC KIDNEY DISEASE, STAGE 3 (MODERAT 01/15/2016 NICOLETTE MARSH, DULCE Ot R31.9 HEMATURIA, UNSPECIFIED 01/15/2016 NICOLETTE MARSH, DULCE Ot N18.3 CHRONIC KIDNEY DISEASE, STAGE 3 (MODERAT 01/15/2016 NICOLETTE MARSH, DULCE Ot R31.9 HEMATURIA, UNSPECIFIED 01/17/2016 JULIANN MARSH, ISABEL R Ot E03.9 HYPOTHYROIDISM, UNSPECIFIED 01/17/2016 JULIANN MARSH, ISABEL R Ot E11.21 TYPE 2 DIABETES MELLITUS WITH DIABETIC N 01/17/2016 ISABEL HUMPHREYS MD R Ot F41.9 ANXIETY DISORDER, UNSPECIFIED 01/17/2016 ISABEL HUMPHREYS MD R Ot G47.33 OBSTRUCTIVE SLEEP APNEA (ADULT) (PEDIATR 01/17/2016 ISABEL HUMPHREYS MD R Ot I12.9 HYPERTENSIVE CHRONIC KIDNEY DISEASE W ST 01/17/2016 JULIANN MARSH, ISABEL R Ot I25.110 ATHSCL HEART DISEASE OF [place] COR ART W 01/17/2016 JULIANN MARSH, ISABEL R Ot I25.2 OLD MYOCARDIAL INFARCTION 01/17/2016 ISABEL HUMPHREYS MD R Ot I50.9 HEART FAILURE, UNSPECIFIED 01/17/2016 ISABEL HUMPHREYS MD R Ot I65.23 OCCLUSION AND STENOSIS OF [place] 01/17/2016 ISABEL HUMPHREYS MD R Ot J44.9 CHRONIC OBSTRUCTIVE PULMONARY DISEASE, U 01/17/2016 ISABEL HUMPHREYS MD R Ot K21.9 GASTRO-ESOPHAGEAL REFLUX DISEASE WITHOUT 01/17/2016 ISABEL HUMPHREYS MD R Ot M79.7 FIBROMYALGIA 01/17/2016 ISABEL HUMPHREYS MD R Ot M79.89 OTHER SPECIFIED SOFT TISSUE DISORDERS 01/17/2016 ISABEL HUMPHREYS MD R Ot N17.9 ACUTE KIDNEY FAILURE, UNSPECIFIED 01/17/2016 ISABEL HUMPHREYS MD R Ot N18.4 CHRONIC KIDNEY DISEASE, STAGE 4 (SEVERE) 01/17/2016 ISABEL HUMPHREYS MD R Ot Z79.4 RADIOLOGICAL HEALTH SPECIALIST (CURRENT) USE OF INSULIN 01/17/2016 ISABEL HUMPHREYS MD Ot Z95.5 PRESENCE OF CORONARY ANGIOPLASTY IMPLANT 01/17/2016 DULCE WILL MD Ot N18.3 CHRONIC KIDNEY DISEASE, STAGE 3 (MODERAT 01/17/2016 DULCE WILL MD Ot R31.9 HEMATURIA, UNSPECIFIED 01/18/2016 ISABEL HUMPHREYS MD Ot E03.9 HYPOTHYROIDISM, UNSPECIFIED 01/18/2016 ISABEL HUMPHREYS MD Ot E11.21 TYPE 2 DIABETES MELLITUS WITH DIABETIC N 01/18/2016 ISABEL HUMPHREYS MD Ot F41.9 ANXIETY DISORDER, UNSPECIFIED 01/18/2016 ISABEL HUMPHREYS MD Ot G47.33 OBSTRUCTIVE SLEEP APNEA (ADULT) (PEDIATR 01/18/2016 ISABEL HUMPHREYS MD Ot I12.9 HYPERTENSIVE CHRONIC KIDNEY DISEASE W ST 01/18/2016 ISABEL HUMPHREYS MD Ot I25.110 ATHSCL HEART DISEASE OF [place] COR ART W 01/18/2016 ISABEL HUMPHREYS MD R Ot I25.2 OLD MYOCARDIAL INFARCTION 01/18/2016 JULIANN MARSH, ISABEL Zaidi Ot I50.43 ACUTE ON CHRONIC COMBINED SYSTOLIC AND D 01/18/2016 ISABEL HUMPHREYS MD Ot I50.9 HEART FAILURE, UNSPECIFIED 01/18/2016 ISABEL HUMPHREYS MD Ot I65.23 OCCLUSION AND STENOSIS OF [place] 01/18/2016 ISABEL HUMPHREYS MD Ot J44.9 CHRONIC OBSTRUCTIVE PULMONARY DISEASE, U 01/18/2016 ISABEL HUMPHREYS MD Ot K21.9 GASTRO-ESOPHAGEAL REFLUX DISEASE WITHOUT 01/18/2016 ISABEL HUMPHREYS MD Ot M79.7 FIBROMYALGIA 01/18/2016 ISABEL HUMPHREYS MD Ot M79.89 OTHER SPECIFIED SOFT TISSUE DISORDERS 01/18/2016 ISABEL HUMPHREYS MD Ot N17.9 ACUTE KIDNEY FAILURE, UNSPECIFIED 01/18/2016 ISABEL HUMPHREYS MD, Ot N18.4 CHRONIC KIDNEY DISEASE, STAGE 4 (SEVERE) 01/18/2016 ISABEL HUMPHREYS MD Ot Z79.4 RADIOLOGICAL HEALTH SPECIALIST (CURRENT) USE OF INSULIN 01/18/2016 ISABEL HUMPHREYS MD Ot Z95.5 PRESENCE OF CORONARY ANGIOPLASTY IMPLANT 01/18/2016 ISABEL HUMPHREYS MD Ot E03.9 HYPOTHYROIDISM, UNSPECIFIED 01/18/2016 ISABEL HUMPHREYS MD Ot E11.21 TYPE 2 DIABETES MELLITUS WITH DIABETIC N 01/18/2016 ISABEL HUMPHREYS MD, Ot F41.9 ANXIETY DISORDER, UNSPECIFIED 01/18/2016 ISABEL HUMPHREYS MD, Ot G47.33 OBSTRUCTIVE SLEEP APNEA (ADULT) (PEDIATR 01/18/2016 ISABEL HUMPHREYS MD Ot I12.9 HYPERTENSIVE CHRONIC KIDNEY DISEASE W ST 01/18/2016 ISABEL HUMPHREYS MD Ot I25.110 ATHSCL HEART DISEASE OF [place]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 01/18/2016 ISABEL HUMPHREYS MD, Ot I25.2 OLD MYOCARDIAL INFARCTION 01/18/2016 ISABEL HUMPHREYS MD Ot I50.43 ACUTE ON CHRONIC COMBINED SYSTOLIC AND D 01/18/2016 ISABEL HUMPHREYS MD Ot I50.9 HEART FAILURE, UNSPECIFIED 01/18/2016 ISABEL HUMPHREYS MD Ot I65.23 OCCLUSION AND STENOSIS OF BILATERAL [place] 01/18/2016 ISABEL HUMPHREYS MD Ot J44.9 CHRONIC OBSTRUCTIVE PULMONARY DISEASE, U 01/18/2016 ISABEL HUMPHREYS MD, Ot K21.9 GASTRO-ESOPHAGEAL REFLUX DISEASE WITHOUT 01/18/2016 ISABEL HUMPHREYS MD R Ot M79.7 FIBROMYALGIA 01/18/2016 ISABEL HUMPHREYS MD Ot M79.89 OTHER SPECIFIED SOFT TISSUE DISORDERS 01/18/2016 ISABEL HUMPHREYS MD Ot N17.9 ACUTE KIDNEY FAILURE, UNSPECIFIED 01/18/2016 ISABEL HUMPHREYS MD Ot N18.4 CHRONIC KIDNEY DISEASE, STAGE 4 (SEVERE) 01/18/2016 ISABEL HUMPHREYS MD Ot Z79.4 HALF-WAY (CURRENT) USE OF INSULIN 01/18/2016 ISABEL HUMPHREYS MD, Ot Z95.5 PRESENCE OF CORONARY ANGIOPLASTY IMPLANT 01/19/2016 ISABEL HUMPHREYS MD Ot E03.9 HYPOTHYROIDISM, UNSPECIFIED 01/19/2016 ISABEL HUMPHREYS MD Ot E11.21 TYPE 2 DIABETES MELLITUS WITH DIABETIC N 01/19/2016 ISABEL HUMPHREYS MD Ot F41.9 ANXIETY DISORDER, UNSPECIFIED 01/19/2016 ISABEL HUMPHREYS MD Ot G47.33 OBSTRUCTIVE SLEEP APNEA (ADULT) (PEDIATR 01/19/2016 ISABEL HUMPHREYS MD R Ot I12.9 HYPERTENSIVE CHRONIC KIDNEY DISEASE W ST 01/19/2016 ISABEL HUMPHREYS MD Ot I25.110 ATHSCL HEART DISEASE OF [place] ART W 01/19/2016 ISABEL HUMPHREYS MD Ot I25.2 OLD MYOCARDIAL INFARCTION 01/19/2016 JULIANN MARSH, ISABEL R Ot I50.43 ACUTE ON CHRONIC COMBINED SYSTOLIC AND D 01/19/2016 ISABEL HUMPHREYS MD Ot I50.9 HEART FAILURE, UNSPECIFIED 01/19/2016 ISABEL HUMPHREYS MD Ot I65.23 OCCLUSION AND STENOSIS OF [place] 01/19/2016 ISABEL HUMPHREYS MD Ot J44.9 CHRONIC OBSTRUCTIVE PULMONARY DISEASE, U 01/19/2016 ISABEL HUMPHREYS MD Ot K21.9 GASTRO-ESOPHAGEAL REFLUX DISEASE WITHOUT 01/19/2016 ISABEL HUMPHREYS MD R Ot M79.7 FIBROMYALGIA 01/19/2016 ISABEL HUMPHREYS MD R Ot M79.89 OTHER SPECIFIED SOFT TISSUE DISORDERS 01/19/2016 ISABEL HUMPHREYS MD Ot N17.9 ACUTE KIDNEY FAILURE, UNSPECIFIED 01/19/2016 ISABEL HUMPHREYS MD Ot N18.4 CHRONIC KIDNEY DISEASE, STAGE 4 (SEVERE) 01/19/2016 ISABEL HUMPHREYS MD Ot Z79.4 HALF-WAY (CURRENT) USE OF INSULIN 01/19/2016 ISABEL HUMPHREYS MD Ot Z95.5 PRESENCE OF CORONARY ANGIOPLASTY IMPLANT 01/20/2016 ISABEL HUMPHREYS MD Ot E03.9 HYPOTHYROIDISM, UNSPECIFIED 01/20/2016 ISABEL HUMPHREYS MD Ot E11.21 TYPE 2 DIABETES MELLITUS WITH DIABETIC N 01/20/2016 ISABEL HUMPHREYS MD Ot F41.9 ANXIETY DISORDER, UNSPECIFIED 01/20/2016 ISABEL HUMPHREYS MD Ot G47.33 OBSTRUCTIVE SLEEP APNEA (ADULT) (PEDIATR 01/20/2016 ISABEL HUMPHREYS MD Ot I12.9 HYPERTENSIVE CHRONIC KIDNEY DISEASE W ST 01/20/2016 SEGLIE MD, ISABEL R Ot I25.110 ATHSCL HEART DISEASE OF [place] ART W 01/20/2016 ISABEL HUMPHREYS MD Ot I25.2 OLD MYOCARDIAL INFARCTION 01/20/2016 ISABEL HUMPHREYS MD R Ot I50.43 ACUTE ON CHRONIC COMBINED SYSTOLIC AND D 01/20/2016 ISABEL HUMPHREYS MD Ot I50.9 HEART FAILURE, UNSPECIFIED 01/20/2016 ISABEL HUMPHREYS MD Ot I65.23 OCCLUSION AND STENOSIS OF [place] 01/20/2016 ISABEL HUMPHREYS MD R Ot J44.9 CHRONIC OBSTRUCTIVE PULMONARY DISEASE, U 01/20/2016 ISABEL HUMPHREYS MD Ot K21.9 GASTRO-ESOPHAGEAL REFLUX DISEASE WITHOUT 01/20/2016 ISABEL HUMPHREYS MD R Ot M79.7 FIBROMYALGIA 01/20/2016 ISABEL HUMPHREYS MD R Ot M79.89 OTHER SPECIFIED SOFT TISSUE DISORDERS 01/20/2016 ISABEL HUMPHREYS MD Ot N17.9 ACUTE KIDNEY FAILURE, UNSPECIFIED 01/20/2016 ISABEL HUMPHREYS MD Ot N18.4 CHRONIC KIDNEY DISEASE, STAGE 4 (SEVERE) 01/20/2016 ISABEL HUMPHREYS MD Ot Z79.4 HALF-WAY (CURRENT) USE OF INSULIN 01/20/2016 ISABEL HUMPHREYS MD Ot Z95.5 PRESENCE OF CORONARY ANGIOPLASTY IMPLANT 01/20/2016 ISABEL HUMPHREYS MD Ot E03.9 HYPOTHYROIDISM, UNSPECIFIED 01/20/2016 ISABEL HUMPHREYS MD Ot E11.21 TYPE 2 DIABETES MELLITUS WITH DIABETIC N 01/20/2016 ISABEL HUMPHREYS MD Ot F41.9 ANXIETY DISORDER, UNSPECIFIED 01/20/2016 ISABEL HUMPHREYS MD Ot G47.33 OBSTRUCTIVE SLEEP APNEA (ADULT) (PEDIATR 01/20/2016 ISABEL HUMPHREYS MD Ot I12.9 HYPERTENSIVE CHRONIC KIDNEY DISEASE W ST 01/20/2016 ISABEL HUMPHREYS MD Ot I25.110 ATHSCL HEART DISEASE OF [place]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 01/20/2016 ISABEL HUMPHREYS MD R Ot I25.2 OLD MYOCARDIAL INFARCTION 01/20/2016 ISABEL HUMPHREYS MD R Ot I50.43 ACUTE ON CHRONIC COMBINED SYSTOLIC AND D 01/20/2016 ISABEL HUMPHREYS MD Ot I50.9 HEART FAILURE, UNSPECIFIED 01/20/2016 ISABEL HUMPHREYS MD Ot I65.23 OCCLUSION AND STENOSIS OF [place] 01/20/2016 ISABEL HUMPHREYS MD, Ot J44.9 CHRONIC OBSTRUCTIVE PULMONARY DISEASE, U 01/20/2016 ISABEL HUMPHREYS MD, Ot K21.9 GASTRO-ESOPHAGEAL REFLUX DISEASE WITHOUT 01/20/2016 ISABEL HUMPHREYS MD Ot M79.7 FIBROMYALGIA 01/20/2016 ISABEL HUMPHREYS MD, Ot M79.89 OTHER SPECIFIED SOFT TISSUE DISORDERS 01/20/2016 ISABEL HUMPHREYS MD, Ot N17.9 ACUTE KIDNEY FAILURE, UNSPECIFIED 01/20/2016 ISABEL HUMPHREYS MD, Ot N18.4 CHRONIC KIDNEY DISEASE, STAGE 4 (SEVERE) 01/20/2016 ISABEL HUMPHREYS MD, Ot Z79.4 RADIOLOGICAL HEALTH SPECIALIST (CURRENT) USE OF INSULIN 01/20/2016 ISABEL HUMPHREYS MD Ot Z95.5 PRESENCE OF CORONARY ANGIOPLASTY IMPLANT 01/20/2016 ISABEL HUMPHREYS MD Ot E03.9 HYPOTHYROIDISM, UNSPECIFIED 01/20/2016 ISABEL HUMPHREYS MD Ot E11.21 TYPE 2 DIABETES MELLITUS WITH DIABETIC N 01/20/2016 ISABEL HUMPHREYS MD Ot E86.1 HYPOVOLEMIA 01/20/2016 ISABEL HUMPHREYS MD Ot F41.9 ANXIETY DISORDER, UNSPECIFIED 01/20/2016 ISABEL HUMPHREYS MD Ot G47.33 OBSTRUCTIVE SLEEP APNEA (ADULT) (PEDIATR 01/20/2016 ISABEL HUMPHREYS MD Ot I12.9 HYPERTENSIVE CHRONIC KIDNEY DISEASE W ST 01/20/2016 ISABEL HUMPHREYS MD Ot I21.4 NON-ST ELEVATION (NSTEMI) MYOCARDIAL INF 01/20/2016 ISABEL HUMPHREYS MD Ot I25.10 ATHSCL HEART DISEASE OF [place] CORONARY 01/20/2016 ISABEL HUMPHREYS MD Ot I25.110 ATHSCL HEART DISEASE OF [place] ART W 01/20/2016 ISABEL HUMPHREYS MD R Ot I25.2 OLD MYOCARDIAL INFARCTION 01/20/2016 ISABEL HUMPHREYS MD Ot I47.2 VENTRICULAR TACHYCARDIA 01/20/2016 ISABEL HUMPHREYS MD, Ot I50.43 ACUTE ON CHRONIC COMBINED SYSTOLIC AND D 01/20/2016 ISABEL HUMPHREYS MD, Ot I50.9 HEART FAILURE, UNSPECIFIED 01/20/2016 ISABEL HUMPHREYS MD, Ot I65.23 OCCLUSION AND STENOSIS OF [place] 01/20/2016 ISABEL HUMPHREYS MD, Ot J44.9 CHRONIC OBSTRUCTIVE PULMONARY DISEASE, U 01/20/2016 ISABEL HUMPHREYS MD, Ot K21.9 GASTRO-ESOPHAGEAL REFLUX DISEASE WITHOUT 01/20/2016 ISABEL HUMPHREYS MD, Ot M79.7 FIBROMYALGIA 01/20/2016 ISABEL HUMPHREYS MD, Ot M79.89 OTHER SPECIFIED SOFT TISSUE DISORDERS 01/20/2016 ISABEL HUMPHREYS MD, Ot N17.9 ACUTE KIDNEY FAILURE, UNSPECIFIED 01/20/2016 ISABEL HUMPHREYS MD, Ot N18.4 CHRONIC KIDNEY DISEASE, STAGE 4 (SEVERE) 01/20/2016 ISABEL HUMPHREYS MD, Ot Z79.4 RADIOLOGICAL HEALTH SPECIALIST (CURRENT) USE OF INSULIN 01/20/2016 ISABEL HUMPHREYS MD, Ot Z95.5 PRESENCE OF CORONARY ANGIOPLASTY IMPLANT 01/23/2016 DULCE WILL MD, Ot N18.3 CHRONIC KIDNEY DISEASE, STAGE 3 (MODERAT 01/23/2016 DULCE WILL MD Ot R31.9 HEMATURIA, UNSPECIFIED 01/28/2016 MALVIN PAYAN MD, Ot D63.1 ANEMIA IN CHRONIC KIDNEY DISEASE 01/28/2016 MALVIN PAYAN MD, Ot E03.9 HYPOTHYROIDISM, UNSPECIFIED 01/28/2016 MALVIN PAYAN MD, Ot E11.22 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 01/28/2016 MALVIN PAYAN MD, Ot E66.01 MORBID (SEVERE) OBESITY DUE TO EXCESS CA 01/28/2016 MALVIN PAYAN MD, Ot E83.42 HYPOMAGNESEMIA 01/28/2016 MALVIN PAYAN MD, Ot F32.9 MAJOR DEPRESSIVE DISORDER, SINGLE EPISOD 01/28/2016 MALVIN PAYAN MD, Ot F41.9 ANXIETY DISORDER, UNSPECIFIED 01/28/2016 MALVIN PAYAN MD, Ot I12.9 HYPERTENSIVE CHRONIC KIDNEY DISEASE W ST 01/28/2016 MALVIN PAYAN MD, Ot I25.10 ATHSCL HEART DISEASE OF [place] CORONARY 01/28/2016 MALVIN PAYAN MD Ot I65.23 OCCLUSION AND STENOSIS OF [place] 01/28/2016 MALVIN PAYAN MD Ot N18.9 CHRONIC KIDNEY DISEASE, UNSPECIFIED 01/28/2016 MALVIN PAYAN MD Ot Z68.41 BODY MASS INDEX (BMI) 40.0-44.9, ADULT 01/28/2016 MALVIN PAYAN MD Ot Z79.4 RADIOLOGICAL HEALTH SPECIALIST (CURRENT) USE OF INSULIN 01/28/2016 MALVIN PAYAN MD Ot Z79.899 OTHER HALF-WAY (CURRENT) DRUG THERAPY 02/25/2016 REJI MA MD, Ot N18.6 END STAGE RENAL DISEASE 02/25/2016 REJI MA MD, Ot Z01.89 ENCOUNTER FOR OTHER SPECIFIED SPECIAL EX 02/25/2016 REJI MA MD, Ot Z99.2 DEPENDENCE ON RENAL DIALYSIS 02/29/2016 GUMARO HEBERT MD Ot E11.9 TYPE 2 DIABETES MELLITUS WITHOUT COMPLIC 02/29/2016 GUMARO HEBERT MD, Ot E87.70 FLUID OVERLOAD, UNSPECIFIED 02/29/2016 GUMARO HEBERT MD Ot I12.0 HYP CHR KIDNEY DISEASE W STAGE 5 CHR KID 02/29/2016 GUMARO HEBERT MD Ot I51.7 CARDIOMEGALY 02/29/2016 GUMARO HEBERT MD, Ot N18.6 END STAGE RENAL DISEASE 02/29/2016 GUMARO HEBERT MD Ot R07.9 CHEST PAIN, UNSPECIFIED 02/29/2016 GUMARO HEBERT MD, Ot Z79.4 RADIOLOGICAL HEALTH SPECIALIST (CURRENT) USE OF INSULIN 02/29/2016 GUMARO HEBERT MD Ot Z95.5 PRESENCE OF CORONARY ANGIOPLASTY IMPLANT 02/29/2016 GUMARO HEBERT MD Ot Z99.2 DEPENDENCE ON RENAL DIALYSIS 03/02/2016 GUMARO HEBERT MD Ot E11.9 TYPE 2 DIABETES MELLITUS WITHOUT COMPLIC 03/02/2016 GUMARO HEBERT MD Ot E87.70 FLUID OVERLOAD, UNSPECIFIED 03/02/2016 GUMARO HEBERT MD Ot I12.0 HYP CHR KIDNEY DISEASE W STAGE 5 CHR KID 03/02/2016 GUMARO HEBERT MD Ot I51.7 CARDIOMEGALY 03/02/2016 GUMARO HEBERT MD Ot N18.6 END STAGE RENAL DISEASE 03/02/2016 GUMARO HEBERT MD Ot R07.9 CHEST PAIN, UNSPECIFIED 03/02/2016 GUMARO HEBERT MD, Ot Z79.4 HALF-WAY (CURRENT) USE OF INSULIN 03/02/2016 GUMARO HEBERT MD Ot Z95.5 PRESENCE OF CORONARY ANGIOPLASTY IMPLANT 03/02/2016 GUMARO HEBERT MD Ot Z99.2 DEPENDENCE ON RENAL DIALYSIS 03/06/2016 GUMARO HEBERT MD Ot E11.9 TYPE 2 DIABETES MELLITUS WITHOUT COMPLIC 03/06/2016 GUMARO HEBERT MD, Ot E87.70 FLUID OVERLOAD, UNSPECIFIED 03/06/2016 GUMARO HEBERT MD, Ot I12.0 HYP CHR KIDNEY DISEASE W STAGE 5 CHR KID 03/06/2016 GUMARO HEBERT MD, Ot I51.7 CARDIOMEGALY 03/06/2016 GUMARO HEBERT MD, Ot N18.6 END STAGE RENAL DISEASE 03/06/2016 GUMARO HEBERT MD, Ot R07.9 CHEST PAIN, UNSPECIFIED 03/06/2016 GUMARO HEBERT MD, Ot Z79.4 HALF-WAY (CURRENT) USE OF INSULIN 03/06/2016 GUMARO HEBERT MD Ot Z95.5 PRESENCE OF CORONARY ANGIOPLASTY IMPLANT 03/06/2016 GUMARO HEBERT MD Ot Z99.2 DEPENDENCE ON RENAL DIALYSIS 03/10/2016 MALVIN PAYAN MD Ot D63.1 ANEMIA IN CHRONIC KIDNEY DISEASE 03/10/2016 MALVIN PAYAN MD Ot E03.9 HYPOTHYROIDISM, UNSPECIFIED 03/10/2016 MALVIN PAYAN MD Ot E11.22 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 03/10/2016 MALVIN PAYAN MD Ot E66.01 MORBID (SEVERE) OBESITY DUE TO EXCESS CA 03/10/2016 MALVIN PAYAN MD Ot E83.42 HYPOMAGNESEMIA 03/10/2016 MALVIN PAYAN MD Ot F32.9 MAJOR DEPRESSIVE DISORDER, SINGLE EPISOD 03/10/2016 MALVIN PAYAN MD Ot F41.9 ANXIETY DISORDER, UNSPECIFIED 03/10/2016 MALVIN PAYAN MD Ot I12.9 HYPERTENSIVE CHRONIC KIDNEY DISEASE W ST 03/10/2016 MALVIN PAYAN MD Ot I25.10 ATHSCL HEART DISEASE OF [place] CORONARY 03/10/2016 MALVIN PAYAN MD, Ot I65.23 OCCLUSION AND STENOSIS OF [place] 03/10/2016 MALVIN PAYAN MD, Ot N18.9 CHRONIC KIDNEY DISEASE, UNSPECIFIED 03/10/2016 MALVIN PAYAN MD, Ot Z68.41 BODY MASS INDEX (BMI) 40.0-44.9, ADULT 03/10/2016 MALVIN PAYAN MD, Ot Z79.4 HALF-WAY (CURRENT) USE OF INSULIN 03/10/2016 MALVIN PAYAN MD, Ot Z79.899 OTHER RADIOLOGICAL HEALTH SPECIALIST (CURRENT) DRUG THERAPY 03/12/2016 REJI MA MD, Ot N18.6 END STAGE RENAL DISEASE 03/12/2016 REJI MA MD, Ot Z01.89 ENCOUNTER FOR OTHER SPECIFIED SPECIAL EX 03/12/2016 REJI MA MD, Ot Z99.2 DEPENDENCE ON RENAL DIALYSIS 03/23/2016 MALVIN PAYAN MD, Ot D63.1 ANEMIA IN CHRONIC KIDNEY DISEASE 03/23/2016 MALVIN PAYAN MD, Ot E03.9 HYPOTHYROIDISM, UNSPECIFIED 03/23/2016 MALVIN PAYAN MD, Ot E11.22 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 03/23/2016 MALVIN PAYAN MD, Ot E66.01 MORBID (SEVERE) OBESITY DUE TO EXCESS CA 03/23/2016 MALVIN PAYAN MD, Ot E83.42 HYPOMAGNESEMIA 03/23/2016 MALVIN PAYAN MD, Ot F32.9 MAJOR DEPRESSIVE DISORDER, SINGLE EPISOD 03/23/2016 MALVIN PAYAN MD, Ot F41.9 ANXIETY DISORDER, UNSPECIFIED 03/23/2016 MALVIN PAYAN MD, Ot I12.9 HYPERTENSIVE CHRONIC KIDNEY DISEASE W ST 03/23/2016 MALVIN PAYAN MD, Ot I25.10 ATHSCL HEART DISEASE OF [place] CORONARY 03/23/2016 MALVIN PAYAN MD, Ot I65.23 OCCLUSION AND STENOSIS OF [place]IL[place]AL [place] 03/23/2016 MALVIN PAYAN MD, Ot N18.9 CHRONIC KIDNEY DISEASE, UNSPECIFIED 03/23/2016 MALVIN PAYAN MD, Ot Z68.41 BODY MASS INDEX (BMI) 40.0-44.9, ADULT 03/23/2016 MALVIN PAYAN MD, Ot Z79.4 RADIOLOGICAL HEALTH SPECIALIST (CURRENT) USE OF INSULIN 03/23/2016 MALVIN PAYAN MD, Ot Z79.899 OTHER HALF-WAY (CURRENT) DRUG THERAPY 03/25/2016 MALVIN PAYAN MD Ot D63.1 ANEMIA IN CHRONIC KIDNEY DISEASE 03/25/2016 MALVIN PAYAN MD Ot E03.9 HYPOTHYROIDISM, UNSPECIFIED 03/25/2016 MALVIN PAYAN MD Ot E11.22 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 03/25/2016 MALVIN PAYAN MD, Ot E66.01 MORBID (SEVERE) OBESITY DUE TO EXCESS CA 03/25/2016 MALVIN PAYAN MD, Ot E83.42 HYPOMAGNESEMIA 03/25/2016 MALVIN PAYAN MD, Ot F32.9 MAJOR DEPRESSIVE DISORDER, SINGLE EPISOD 03/25/2016 MALVIN PAYAN MD, Ot F41.9 ANXIETY DISORDER, UNSPECIFIED 03/25/2016 MALVIN PAYAN MD, Ot I12.9 HYPERTENSIVE CHRONIC KIDNEY DISEASE W ST 03/25/2016 MALVIN PAYAN MD, Ot I25.10 ATHSCL HEART DISEASE OF [place] CORONARY 03/25/2016 MALVIN PAYAN MD Ot I65.23 OCCLUSION AND STENOSIS OF [place]ILATERAL [place] 03/25/2016 MALVIN PAYAN MD, Ot N18.9 CHRONIC KIDNEY DISEASE, UNSPECIFIED 03/25/2016 MALVIN PAYAN MD Ot Z68.41 BODY MASS INDEX (BMI) 40.0-44.9, ADULT 03/25/2016 MALVIN PAYAN MD, Ot Z79.4 HALF-WAY (CURRENT) USE OF INSULIN 03/25/2016 MALVIN PAYAN MD, Ot Z79.899 OTHER RADIOLOGICAL HEALTH SPECIALIST (CURRENT) DRUG THERAPY 04/23/2016 MALVIN PAYAN MD, Ot D63.1 ANEMIA IN CHRONIC KIDNEY DISEASE 04/23/2016 MALVIN PAYAN MD, Ot E03.9 HYPOTHYROIDISM, UNSPECIFIED 04/23/2016 MALVIN PAYAN MD, Ot E11.22 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 04/23/2016 MALVIN PAYAN MD, Ot E66.01 MORBID (SEVERE) OBESITY DUE TO EXCESS CA 04/23/2016 MALVIN PAYAN MD, Ot E83.42 HYPOMAGNESEMIA 04/23/2016 MALVIN PAYAN MD, Ot F32.9 MAJOR DEPRESSIVE DISORDER, SINGLE EPISOD 04/23/2016 MALVIN PAYAN MD, Ot F41.9 ANXIETY DISORDER, UNSPECIFIED 04/23/2016 MALVIN PAYAN MD Ot I12.9 HYPERTENSIVE CHRONIC KIDNEY DISEASE W ST 04/23/2016 MALVIN PAYAN MD Ot I25.10 ATHSCL HEART DISEASE OF [place] CORONARY 04/23/2016 MALVIN PAYAN MD, Ot I65.23 OCCLUSION AND STENOSIS OF [place]IL[place]AL [place] 04/23/2016 MALVIN PAYAN MD, Ot N18.9 CHRONIC KIDNEY DISEASE, UNSPECIFIED 04/23/2016 MALVIN PAYAN MD, Ot Z68.41 BODY MASS INDEX (BMI) 40.0-44.9, ADULT 04/23/2016 MALVIN PAYAN MD, Ot Z79.4 RADIOLOGICAL HEALTH SPECIALIST (CURRENT) USE OF INSULIN 04/23/2016 MALVIN PAYAN MD, Ot Z79.899 OTHER HALF-WAY (CURRENT) DRUG THERAPY 05/07/2016 REJI MA MD, Ot N18.6 END STAGE RENAL DISEASE 05/07/2016 REJI MA MD, Ot Z01.89 ENCOUNTER FOR OTHER SPECIFIED SPECIAL EX 05/07/2016 REJI MA MD, Ot Z99.2 DEPENDENCE ON RENAL DIALYSIS 05/20/2016 JESSIKA DO, ANNE MARIE K Ot E03.9 HYPOTHYROIDISM, UNSPECIFIED 05/20/2016 JESSIKA DO, ANNE MARIE K Ot E11.9 TYPE 2 DIABETES MELLITUS WITHOUT COMPLIC 05/20/2016 JESSIKA DO, ANNE MARIE K Ot I12.0 HYP CHR KIDNEY DISEASE W STAGE 5 CHR KID 05/20/2016 JESSIKA DO, ANNE MARIE K Ot I25.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 [place] COR ART W 05/20/2016 JESSIKA DO ANNE MARIE K Ot I51.7 CARDIOMEGALY 05/20/2016 JESSIKA DO, ANNE MARIE K Ot J44.9 CHRONIC OBSTRUCTIVE PULMONARY DISEASE, U 05/20/2016 JESSIKA DO, ANNE MARIE K Ot N18.6 END STAGE RENAL DISEASE 05/20/2016 JESSIKA DO, ANNE MARIE K Ot R07.9 CHEST PAIN, UNSPECIFIED 05/20/2016 JESSIKA DO ANNE MARIE K Ot Z79.4 HALF-WAY (CURRENT) USE OF INSULIN 05/20/2016 JESSIKA DO ANNE MARIE K Ot Z79.82 RADIOLOGICAL HEALTH SPECIALIST (CURRENT) USE OF ASPIRIN 05/20/2016 JESSIKA DO ANNE MARIE K Ot Z79.899 OTHER HALF-WAY (CURRENT) DRUG THERAPY 05/20/2016 JESSIKA DO ANNE MARIE K Ot Z95.5 PRESENCE OF CORONARY ANGIOPLASTY IMPLANT 05/20/2016 JESSIKA DO ANNE MARIE K Ot Z99.2 DEPENDENCE ON RENAL DIALYSIS 05/21/2016 JESSIKA DO ANNE MARIE K Ot E03.9 HYPOTHYROIDISM, UNSPECIFIED 05/21/2016 JESSIKA GEORGE HUMMELA K Ot E11.9 TYPE 2 DIABETES MELLITUS WITHOUT COMPLIC 05/21/2016 JESSIKA ANNE MARIE HUMMEL K Ot I12.0 HYP CHR KIDNEY DISEASE W STAGE 5 CHR KID 05/21/2016 JESSIKA GEORGE HUMMELA K Ot I25.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 [place] COR ART W 05/21/2016 JESSIKA ANNE MARIE HUMMEL K Ot I51.7 CARDIOMEGALY 05/21/2016 JESSIKA ANNE MARIE HUMMEL K Ot J44.9 CHRONIC OBSTRUCTIVE PULMONARY DISEASE, U 05/21/2016 JESSIKA GEORGE HUMMELA K Ot N18.6 END STAGE RENAL DISEASE 05/21/2016 JESSIKA GEORGE HUMMELA K Ot R07.9 CHEST PAIN, UNSPECIFIED 05/21/2016 JESSIKA GEORGE HUMMELA K Ot Z79.4 RADIOLOGICAL HEALTH SPECIALIST (CURRENT) USE OF INSULIN 05/21/2016 JESSIKA GEORGE HUMMELA K Ot Z79.82 RADIOLOGICAL HEALTH SPECIALIST (CURRENT) USE OF ASPIRIN 05/21/2016 JESSIKA GEORGE HUMMELA K Ot Z79.899 OTHER HALF-WAY (CURRENT) DRUG THERAPY 05/21/2016 JESSIKA ANNE MARIE HUMMEL K Ot Z95.5 PRESENCE OF CORONARY ANGIOPLASTY IMPLANT 05/21/2016 GEORGE ROSEN DOA K Ot Z99.2 DEPENDENCE ON RENAL DIALYSIS 05/27/2016 Ot 414.01 CORONARY ATHEROSCLEROSIS OF [place] CORON 05/27/2016 Ot 272.4 HYPERLIPIDEMIA NEC/NOS 05/27/2016 Ot V58.69 OTH MED,LT,CURRENT USE 05/27/2016 Ot 414.00 CORON ATHEROSCLER NOS TYPE VESSEL, NATIV 05/27/2016 JULIANN MARSH, ISABEL R Ot 300.00 ANXIETY STATE NOS 05/27/2016 ISABEL HUMPHREYS MD Ot 311 DEPRESSIVE DISORDER NEC 05/27/2016 MARIBELL MARAVILLA BUS DRIVER/MONITOR Ot 790.6 ABN BLOOD CHEMISTRY NEC 05/27/2016 ISABEL HUMPHREYS MD Ot 285.9 ANEMIA NOS 05/27/2016 ISABEL HUMPHREYS MD Ot 460 ACUTE NASOPHARYNGITIS 05/27/2016 MARIBELL MARAVILLA BUS DRIVER/MONITOR Ot 272.4 HYPERLIPIDEMIA NEC/NOS 05/27/2016 MARIBELL MARAVILLA BUS DRIVER/MONITOR Ot 401.9 HYPERTENSION NOS 05/27/2016 BAIMA, MARIBELL L BUS DRIVER/MONITOR Ot 414.00 CORON ATHEROSCLER NOS TYPE VESSEL, NATIV 05/27/2016 JULIANN MARSH, ISABEL R Ot 348.89 OTHER CONDITIONS OF BRAIN 05/27/2016 JONI HUMPHREYS MDYD R Ot 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 05/27/2016 JONI HUMPHREYS MDYD R Ot 780.97 ALTERED MENTAL STATUS 05/27/2016 ISABEL HUMPHREYS MD R Ot 782.0 SKIN SENSATION DISTURB 05/27/2016 JONI HUMPHREYS MDYD R Ot V76.12 OTH SCREEN MAMMO-MALIGN NEOPLASM OF [place] 05/27/2016 Ot 250.01 DIAB AMBAR WO COMPL, TYPE I [JUVENILE TYP 05/27/2016 DAVE MARSH FAC, ALI FACP CCDS Ot D63.1 ANEMIA IN CHRONIC KIDNEY DISEASE 05/27/2016 DAVE MARSH FACC, ALI FACP CCDS Ot E11.9 TYPE 2 DIABETES MELLITUS WITHOUT COMPLIC 05/27/2016 DAVE MARSH FACC, ALI FACP CCDS Ot E66.8 OTHER OBESITY 05/27/2016 DAVE MARSH FACC, ALI FACP CCDS Ot I10 ESSENTIAL (PRIMARY) HYPERTENSION 05/27/2016 DAVE MARSH FACC, ALI FACP CCDS Ot I25.10 ATHSCL HEART DISEASE OF [place] CORONARY 05/27/2016 DAVE MARSH FACC, ALI FACP CCDS Ot J43.8 OTHER EMPHYSEMA 05/27/2016 NICOLETTE MARSH, DULCE Ot E11.9 TYPE 2 DIABETES MELLITUS WITHOUT COMPLIC 05/27/2016 NICOLETTE MARSH, DULCE Ot E66.9 OBESITY, UNSPECIFIED 05/27/2016 NICOLETTE MARSH, DULCE Ot I12.9 HYPERTENSIVE CHRONIC KIDNEY DISEASE W ST 05/27/2016 NICOLETTE MARSH, DULCE Ot I25.10 ATHSCL HEART DISEASE OF [place] CORONARY 05/27/2016 NICOLETTE MARSH, DULCE Ot J44.9 CHRONIC OBSTRUCTIVE PULMONARY DISEASE, U 05/27/2016 NICOLETTE MARSH, DULCE Ot N18.3 CHRONIC KIDNEY DISEASE, STAGE 3 (MODERAT 05/27/2016 NICOLETTE MARSH, DULCE Ot 403.90 HYPTNSV CHR KID DIS, UNSPEC, W CHR KD ST 05/27/2016 NICOLETTE MARSH, DULCE Ot 585.3 CHRONIC KIDNEY DISEASE, STAGE III (MODER 05/27/2016 DAVE CHAVEZ, ALI FACP CCDS Ot E11.21 TYPE 2 DIABETES MELLITUS WITH DIABETIC N 05/27/2016 DAVE CHAVEZ, ALI FACP CCDS Ot I25.10 ATHSCL HEART DISEASE OF [place] CORONARY 05/27/2016 DAVE CHAVEZC, ALI FACP CCDS Ot I65.23 OCCLUSION AND STENOSIS OF BILATERAL [place] 05/27/2016 DAVE CHAVEZC, ALI FACP CCDS Ot I73.9 PERIPHERAL VASCULAR DISEASE, UNSPECIFIED 05/27/2016 DAVE MARSH FACC, ALI FACP CCDS Ot J44.9 CHRONIC OBSTRUCTIVE PULMONARY DISEASE, U 05/27/2016 DAVE CHAVEZC, ALI FACP CCDS Ot N18.9 CHRONIC KIDNEY DISEASE, UNSPECIFIED 05/27/2016 DAVE MARSH FACC, ALI FACP CCDS Ot R00.2 PALPITATIONS 05/27/2016 DAVE MARSH FACC, ALI FACP CCDS Ot D63.1 ANEMIA IN CHRONIC KIDNEY DISEASE 05/27/2016 DAVE MARSH FACC, EARL FACP CCDS Ot E11.9 TYPE 2 DIABETES MELLITUS WITHOUT COMPLIC 05/27/2016 DAVE MARSH [facility], ALI FACP CCDS Ot I25.10 ATHSCL HEART DISEASE OF [place] CORONARY 05/27/2016 DAVE CHAVEZ, ALI FACP CCDS Ot I65.23 OCCLUSION AND STENOSIS OF [place]AL [place] 05/27/2016 DAVE CHAVEZ, ALI FACP CCDS Ot I73.9 PERIPHERAL VASCULAR DISEASE, UNSPECIFIED 05/27/2016 DAVE CHAVEZ, ALI FACP CCDS Ot J43.8 OTHER EMPHYSEMA 05/27/2016 DAVE CHAVEZ, ALI FACP CCDS Ot R00.2 PALPITATIONS 05/27/2016 KARI EDEN APRN Ot G47.33 OBSTRUCTIVE SLEEP APNEA (ADULT) ( PEDIATR 05/27/2016 KARI EDEN APRN Ot R06.00 DYSPNEA, UNSPECIFIED 05/27/2016 ISABEL HUMPHREYS MD R Ot E11.9 TYPE 2 DIABETES MELLITUS WITHOUT COMPLIC 05/27/2016 ISABEL HUMPHREYS MD R Ot I10 ESSENTIAL (PRIMARY) HYPERTENSION 05/27/2016 DULCE WILL MD Ot I12.9 HYPERTENSIVE CHRONIC KIDNEY DISEASE W ST 05/27/2016 DULCE WILL MD Ot N18.3 CHRONIC KIDNEY DISEASE, STAGE 3 (MODERAT 05/27/2016 NICOLETTE MARSH, DULCE Ot 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 O 05/27/2016 DULCE WILL MD Ot N18.3 CHRONIC KIDNEY DISEASE, STAGE 3 (MODERAT 05/27/2016 DULCE WILL MD Ot R31.9 HEMATURIA, UNSPECIFIED 05/27/2016 REJI MA MD Ot N18.6 END STAGE RENAL DISEASE 05/27/2016 REJI MA MD Ot Z01.89 ENCOUNTER FOR OTHER SPECIFIED SPECIAL EX 05/27/2016 REJI MA MD, Ot Z99.2 DEPENDENCE ON RENAL DIALYSIS 05/27/2016 MALVIN PAYAN MD, Ot D63.1 ANEMIA IN CHRONIC KIDNEY DISEASE 05/27/2016 MALVIN PAYAN MD, Ot E03.9 HYPOTHYROIDISM, UNSPECIFIED 05/27/2016 MALVIN PAYAN MD, Ot E11.22 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 05/27/2016 MALVIN PAYAN MD, Ot E66.01 MORBID (SEVERE) OBESITY DUE TO EXCESS CA 05/27/2016 MALVIN PAYAN MD, Ot E83.42 HYPOMAGNESEMIA 05/27/2016 MALVIN PAYAN MD, Ot F32.9 MAJOR DEPRESSIVE DISORDER, SINGLE EPISOD 05/27/2016 MALVIN PAYAN MD, Ot F41.9 ANXIETY DISORDER, UNSPECIFIED 05/27/2016 MALVIN PAYAN MD, Ot I12.9 HYPERTENSIVE CHRONIC KIDNEY DISEASE W ST 05/27/2016 MALVIN PAYAN MD, Ot I25.10 ATHSCL HEART DISEASE OF [place] CORONARY 05/27/2016 MALVIN PAYAN MD, Ot I65.23 OCCLUSION AND STENOSIS OF [place]ILATERAL [place] 05/27/2016 MALVIN PAYAN MD, Ot N18.9 CHRONIC KIDNEY DISEASE, UNSPECIFIED 05/27/2016 MALVIN PAYAN MD, Ot Z68.41 BODY MASS INDEX (BMI) 40.0-44.9, ADULT 05/27/2016 MALVIN PAYAN MD Ot Z79.4 HALF-WAY (CURRENT) USE OF INSULIN 05/27/2016 MALVIN PAYAN MD, Ot Z79.899 OTHER HALF-WAY (CURRENT) DRUG THERAPY 05/28/2016 MARIBELL MARAVILLA BUS DRIVER/MONITOR Ot 272.4 HYPERLIPIDEMIA NEC/NOS 05/28/2016 MARIBELL MARAVILLA BUS DRIVER/MONITOR Ot 401.9 HYPERTENSION NOS 05/28/2016 MARIBELL MARAVILLAP Ot 414.00 CORON ATHEROSCLER NOS TYPE VESSEL, NATIV 06/15/2016 MALVIN PAYAN MD Ot D63.1 ANEMIA IN CHRONIC KIDNEY DISEASE 06/15/2016 MALVIN PAYAN MD Ot E03.9 HYPOTHYROIDISM, UNSPECIFIED 06/15/2016 MALVIN PAYAN MD Ot E11.22 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 06/15/2016 MALVIN PAYAN MD Ot E66.01 MORBID (SEVERE) OBESITY DUE TO EXCESS CA 06/15/2016 MALVIN PAYAN MD Ot E83.42 HYPOMAGNESEMIA 06/15/2016 MALVIN PAYAN MD, Ot F32.9 MAJOR DEPRESSIVE DISORDER, SINGLE EPISOD 06/15/2016 MALVIN PAYAN MD, Ot F41.9 ANXIETY DISORDER, UNSPECIFIED 06/15/2016 MALVIN PAYAN MD Ot I12.9 HYPERTENSIVE CHRONIC KIDNEY DISEASE W ST 06/15/2016 MALVIN PAYAN MD Ot I25.10 ATHSCL HEART DISEASE OF [place] CORONARY 06/15/2016 MALVIN PAYAN MD Ot I65.23 OCCLUSION AND STENOSIS OF BILATERAL [place] 06/15/2016 MALVIN PAYAN MD Ot N18.9 CHRONIC KIDNEY DISEASE, UNSPECIFIED 06/15/2016 MALVIN PAYAN MD Ot Z68.41 BODY MASS INDEX (BMI) 40.0-44.9, ADULT 06/15/2016 MALVIN PAYAN MD Ot Z79.4 HALF-WAY (CURRENT) USE OF INSULIN 06/15/2016 MALVIN PAYAN MD, Ot Z79.899 OTHER HALF-WAY (CURRENT) DRUG THERAPY 07/01/2016 MALVIN PAYAN MD, Ot D63.1 ANEMIA IN CHRONIC KIDNEY DISEASE 07/01/2016 MALVIN PAYAN MD, Ot E03.9 HYPOTHYROIDISM, UNSPECIFIED 07/01/2016 MALVIN PAYAN MD Ot E11.22 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 07/01/2016 MALVIN PAYAN MD Ot E66.01 MORBID (SEVERE) OBESITY DUE TO EXCESS CA 07/01/2016 MALVIN PAYAN MD Ot E83.42 HYPOMAGNESEMIA 07/01/2016 MALVIN PAYAN MD Ot F32.9 MAJOR DEPRESSIVE DISORDER, SINGLE EPISOD 07/01/2016 MALVIN PAYAN MD Ot F41.9 ANXIETY DISORDER, UNSPECIFIED 07/01/2016 MALVIN PAYAN MD Ot I12.9 HYPERTENSIVE CHRONIC KIDNEY DISEASE W ST 07/01/2016 MALVIN PAYAN MD, Ot I25.10 ATHSCL HEART DISEASE OF [place] CORONARY 07/01/2016 MALVIN PAYAN MD, Ot I65.23 OCCLUSION AND STENOSIS OF [place]ILATERAL [place] 07/01/2016 MALVIN PAYAN MD, Ot N18.9 CHRONIC KIDNEY DISEASE, UNSPECIFIED 07/01/2016 MALVIN PAYAN MD, Ot Z68.41 BODY MASS INDEX (BMI) 40.0-44.9, ADULT 07/01/2016 MALVIN PAYAN MD, Ot Z79.4 RADIOLOGICAL HEALTH SPECIALIST (CURRENT) USE OF INSULIN 07/01/2016 MALVIN PAYAN MD, Ot Z79.899 OTHER RADIOLOGICAL HEALTH SPECIALIST (CURRENT) DRUG THERAPY 07/22/2016 MALVIN PAYAN MD, Ot D63.1 ANEMIA IN CHRONIC KIDNEY DISEASE 07/22/2016 MALVIN PAYAN MD, Ot E03.9 HYPOTHYROIDISM, UNSPECIFIED 07/22/2016 MALVIN PAYAN MD, Ot E11.22 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 07/22/2016 MALVIN PAYAN MD, Ot E66.01 MORBID (SEVERE) OBESITY DUE TO EXCESS CA 07/22/2016 MALVIN PAYAN MD, Ot E83.42 HYPOMAGNESEMIA 07/22/2016 MALVIN PAYAN MD, Ot F32.9 MAJOR DEPRESSIVE DISORDER, SINGLE EPISOD 07/22/2016 MALVIN PAYAN MD, Ot F41.9 ANXIETY DISORDER, UNSPECIFIED 07/22/2016 MALVIN PAYAN MD, Ot I12.9 HYPERTENSIVE CHRONIC KIDNEY DISEASE W ST 07/22/2016 MALVIN PAYAN MD, Ot I25.10 ATHSCL HEART DISEASE OF [place] CORONARY 07/22/2016 MALVIN PAYAN MD, Ot I65.23 OCCLUSION AND STENOSIS OF [place]ILATERAL [place] 07/22/2016 MALVIN PAYAN MD, Ot N18.9 CHRONIC KIDNEY DISEASE, UNSPECIFIED 07/22/2016 MALVIN PYAAN MD, Ot Z45.2 ENCOUNTER FOR ADJUSTMENT AND MANAGEMENT 07/22/2016 MALVIN PAYAN MD, Ot Z68.41 BODY MASS INDEX (BMI) 40.0-44.9, ADULT 07/22/2016 MALVIN PAYAN MD, Ot Z79.4 HALF-WAY (CURRENT) USE OF INSULIN 07/22/2016 MALVIN PAYAN MD, Ot Z79.899 OTHER HALF-WAY (CURRENT) DRUG THERAPY 07/23/2016 Ot 272.4 HYPERLIPIDEMIA NEC/NOS 07/23/2016 Ot V58.69 OTH MED,LT,CURRENT USE 07/23/2016 Ot 414.00 CORON ATHEROSCLER NOS TYPE VESSEL, NATIV 07/23/2016 JULIANN MARSH, ISABEL R Ot 300.00 ANXIETY STATE NOS 07/23/2016 JULIANN MARSH ISABEL R Ot 311 DEPRESSIVE DISORDER NEC 07/23/2016 MARIBELL MARAVILLA BUS DRIVER/MONITOR Ot 790.6 ABN BLOOD CHEMISTRY NEC 07/23/2016 JONI HUMPHREYS MDYD R Ot 285.9 ANEMIA NOS 07/23/2016 JULIANN MARSH ISABEL R Ot 460 ACUTE NASOPHARYNGITIS 07/23/2016 BAILEONIDES SALEHHER L BUS DRIVER/MONITOR Ot 272.4 HYPERLIPIDEMIA NEC/NOS 07/23/2016 TAIWO MARIBELL L BUS DRIVER/MONITOR Ot 401.9 HYPERTENSION NOS 07/23/2016 LEONIDES MARAVILLAHER L BUS DRIVER/MONITOR Ot 414.00 CORON ATHEROSCLER NOS TYPE VESSEL, NATIV 07/23/2016 JULIANN MARSH ISABEL R Ot 348.89 OTHER CONDITIONS OF BRAIN 07/23/2016 JONI HUMPHREYS MDYD R Ot 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 07/23/2016 JULIANN MARSH ISABEL R Ot 780.97 ALTERED MENTAL STATUS 07/23/2016 JULIANN MARSH ISABEL R Ot 782.0 SKIN SENSATION DISTURB 07/23/2016 JULIANN MARSH ISABEL R Ot V76.12 OTH SCREEN MAMMO-MALIGN NEOPLASM OF [place] 07/23/2016 Ot 250.01 DIAB AMBAR WO COMPL, TYPE I [JUVENILE TYP 07/23/2016 DAVE MARSH FACC, EARL FACP CCDS Ot D63.1 ANEMIA IN CHRONIC KIDNEY DISEASE 07/23/2016 DAVE MARSH FACC, EARL FACP CCDS Ot E11.9 TYPE 2 DIABETES MELLITUS WITHOUT COMPLIC 07/23/2016 DAVE MARSH FACC, ALI FACP CCDS Ot E66.8 OTHER OBESITY 07/23/2016 DAVE MARSH FACC, ALI FACP CCDS Ot I10 ESSENTIAL (PRIMARY) HYPERTENSION 07/23/2016 DAVE MARSH FACC, ALI FACP CCDS Ot I25.10 ATHSCL HEART DISEASE OF [place] CORONARY 07/23/2016 DAVE MARSH FACC, ALI FACP CCDS Ot J43.8 OTHER EMPHYSEMA 07/23/2016 DULCE WILL MD Ot E11.9 TYPE 2 DIABETES MELLITUS WITHOUT COMPLIC 07/23/2016 DULCE WILL MD Ot E66.9 OBESITY, UNSPECIFIED 07/23/2016 NICOLETTE MARSH, DULCE Ot I12.9 HYPERTENSIVE CHRONIC KIDNEY DISEASE W ST 07/23/2016 NICOLETTE MARSH, DULCE Ot I25.10 ATHSCL HEART DISEASE OF [place] CORONARY 07/23/2016 NICOLETTE MARSH, DULCE Ot J44.9 CHRONIC OBSTRUCTIVE PULMONARY DISEASE, U 07/23/2016 NICOLETTE MARSH, DULCE Ot N18.3 CHRONIC KIDNEY DISEASE, STAGE 3 (MODERAT 07/23/2016 NICOLETTE MARSH, DULCE Ot 403.90 HYPTNSV CHR KID DIS, UNSPEC, W CHR KD ST 07/23/2016 NICOLETTE MARSH, DULCE Ot 585.3 CHRONIC KIDNEY DISEASE, STAGE III (MODER 07/23/2016 DAVE MARSH FACC, ALI FACP CCDS Ot E11.21 TYPE 2 DIABETES MELLITUS WITH DIABETIC N 07/23/2016 DAVE MARSH FACC, ALI FACP CCDS Ot I25.10 ATHSCL HEART DISEASE OF [place] CORONARY 07/23/2016 DAVE MARSH FACC, ALI FACP CCDS Ot I65.23 OCCLUSION AND STENOSIS OF [place]IL[place] 07/23/2016 DAVE MARSH FACC, ALI FACP CCDS Ot I73.9 PERIPHERAL VASCULAR DISEASE, UNSPECIFIED 07/23/2016 DAVE MARSH FACC, ALI FACP CCDS Ot J44.9 CHRONIC OBSTRUCTIVE PULMONARY DISEASE, U 07/23/2016 DAVE MARSH FACC, ALI FACP CCDS Ot N18.9 CHRONIC KIDNEY DISEASE, UNSPECIFIED 07/23/2016 DAVE MARSH FACC, ALI FACP CCDS Ot R00.2 PALPITATIONS 07/23/2016 DAVE MARSH FACC, ALI FACP CCDS Ot D63.1 ANEMIA IN CHRONIC KIDNEY DISEASE 07/23/2016 DAVE MARSH FACC, ALI FACP CCDS Ot E11.9 TYPE 2 DIABETES MELLITUS WITHOUT COMPLIC 07/23/2016 DAVE MARSH FACC, ALI FACP CCDS Ot I25.10 ATHSCL HEART DISEASE OF [place] CORONARY 07/23/2016 DAVE MARSH FACC, ALI FACP CCDS Ot I65.23 OCCLUSION AND STENOSIS OF [place] 07/23/2016 DAVE MARSH FACC, ALI FACP CCDS Ot I73.9 PERIPHERAL VASCULAR DISEASE, UNSPECIFIED 07/23/2016 DAVE MARSH FACC, ALI FACP CCDS Ot J43.8 OTHER EMPHYSEMA 07/23/2016 DAVE MARSH FACC, ALI FACP CCDS Ot R00.2 PALPITATIONS 07/23/2016 KARI EDEN APRN Ot G47.33 OBSTRUCTIVE SLEEP APNEA (ADULT) ( PEDIATR 07/23/2016 KARI EDEN APRN Ot R06.00 DYSPNEA, UNSPECIFIED 07/23/2016 ISABEL HUMPHREYS MD R Ot E11.9 TYPE 2 DIABETES MELLITUS WITHOUT COMPLIC 07/23/2016 JULIANN MARSH, ISABEL R Ot I10 ESSENTIAL (PRIMARY) HYPERTENSION 07/23/2016 DULCE WILL MD Ot I12.9 HYPERTENSIVE CHRONIC KIDNEY DISEASE W ST 07/23/2016 DULCE WILL MD Ot N18.3 CHRONIC KIDNEY DISEASE, STAGE 3 (MODERAT 07/23/2016 NICOLETTE MARSH, DULCE Ot 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 O 07/23/2016 DULCE WILL MD Ot N18.3 CHRONIC KIDNEY DISEASE, STAGE 3 (MODERAT 07/23/2016 NICOLETTE MARSH, DULCE Ot R31.9 HEMATURIA, UNSPECIFIED 07/23/2016 REJI MA MD Ot N18.6 END STAGE RENAL DISEASE 07/23/2016 FRANCESCA MARSH, REJI Ot Z01.89 ENCOUNTER FOR OTHER SPECIFIED SPECIAL EX 07/23/2016 FRANCESCA MARSH, REJI Ot Z99.2 DEPENDENCE ON RENAL DIALYSIS 07/23/2016 MALVIN PAYAN MD Ot D63.1 ANEMIA IN CHRONIC KIDNEY DISEASE 07/23/2016 MALVIN PAYAN MD Ot E03.9 HYPOTHYROIDISM, UNSPECIFIED 07/23/2016 MALVIN PAYAN MD Ot E11.22 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 07/23/2016 MALVIN PAYAN MD Ot E66.01 MORBID (SEVERE) OBESITY DUE TO EXCESS CA 07/23/2016 MALVIN PAYAN MD Ot E83.42 HYPOMAGNESEMIA 07/23/2016 MALVIN PAYAN MD Ot F32.9 MAJOR DEPRESSIVE DISORDER, SINGLE EPISOD 07/23/2016 MALVIN PAYAN MD Ot F41.9 ANXIETY DISORDER, UNSPECIFIED 07/23/2016 MALVIN PAYAN MD Ot I12.9 HYPERTENSIVE CHRONIC KIDNEY DISEASE W ST 07/23/2016 MALVIN PAYAN MD Ot I25.10 ATHSCL HEART DISEASE OF [place] CORONARY 07/23/2016 MALVIN PAYAN MD, Ot I65.23 OCCLUSION AND STENOSIS OF [place]ILATERAL [place] 07/23/2016 MALVIN PAYAN MD Ot N18.9 CHRONIC KIDNEY DISEASE, UNSPECIFIED 07/23/2016 MALVIN PAYAN MD, Ot Z45.2 ENCOUNTER FOR ADJUSTMENT AND MANAGEMENT 07/23/2016 MALVIN PAYAN MD, Ot Z68.41 BODY MASS INDEX (BMI) 40.0-44.9, ADULT 07/23/2016 MALVIN PAYAN MD, Ot Z79.4 RADIOLOGICAL HEALTH SPECIALIST (CURRENT) USE OF INSULIN 07/23/2016 MALVIN PAYAN MD, Ot Z79.899 OTHER HALF-WAY (CURRENT) DRUG THERAPY 08/10/2016 BIBI MARSH, ANTONIO Ot H25.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, LEFT EYE 08/14/2016 VERNON COLLIER MD Ot E11.9 TYPE 2 DIABETES MELLITUS WITHOUT COMPLIC 08/14/2016 VERNON COLLIER MD Ot E83.42 HYPOMAGNESEMIA 08/14/2016 VERNON COLLIER MD Ot E87.6 HYPOKALEMIA 08/14/2016 VERNON COLLIER MD Ot I12.0 HYP CHR KIDNEY DISEASE W STAGE 5 CHR KID 08/14/2016 VERNON COLLIER MD Ot I16.0 HYPERTENSIVE URGENCY 08/14/2016 VERNON COLLIER MD Ot I25.10 ATHSCL HEART DISEASE OF [place] CORONARY 08/14/2016 VERNON COLLIER MD, Ot J44.9 CHRONIC OBSTRUCTIVE PULMONARY DISEASE , U 08/14/2016 VERNON COLLIER MD, Ot N18.6 END STAGE RENAL DISEASE 08/14/2016 VERNON COLLIER MD Ot R06.02 SHORTNESS OF BREATH 08/14/2016 VERNON COLLIER MD Ot R07.9 CHEST PAIN, UNSPECIFIED 08/14/2016 VERNON COLLIER MD, Ot Z79.02 HALF-WAY (CURRENT) USE OF ANTITHROMBOTI 08/14/2016 VERNON COLLIER MD Ot Z79.4 HALF-WAY (CURRENT) USE OF INSULIN 08/14/2016 VERNON COLLIER MD Ot Z79.82 HALF-WAY (CURRENT) USE OF ASPIRIN 08/14/2016 VERNON COLLIER MD, Ot Z79.899 OTHER RADIOLOGICAL HEALTH SPECIALIST (CURRENT) DRUG THERAPY 08/14/2016 VERNON COLLIER MD Ot Z95.5 PRESENCE OF CORONARY ANGIOPLASTY IMPLANT 08/14/2016 VERNON COLLIER MD, Ot Z98.890 OTHER SPECIFIED POSTPROCEDURAL STATES 08/14/2016 VERNON COLLIER MD, Ot Z99.2 DEPENDENCE ON RENAL DIALYSIS 08/14/2016 VERNON COLLIER MD Ot Z99.81 DEPENDENCE ON SUPPLEMENTAL OXYGEN 08/14/2016 VERNON COLLIER MD Ot E11.9 TYPE 2 DIABETES MELLITUS WITHOUT COMPLIC 08/14/2016 VERNON COLLIER MD Ot E83.42 HYPOMAGNESEMIA 08/14/2016 VERNON COLLIER MD Ot E87.6 HYPOKALEMIA 08/14/2016 VERNON COLLIER MD Ot I12.0 HYP CHR KIDNEY DISEASE W STAGE 5 CHR KID 08/14/2016 VERNON COLLIER MD Ot I16.0 HYPERTENSIVE URGENCY 08/14/2016 VERNON COLLIER MD Ot I25.10 ATHSCL HEART DISEASE OF [place] CORONARY 08/14/2016 VERNON COLLIER MD, Ot J44.9 CHRONIC OBSTRUCTIVE PULMONARY DISEASE , U 08/14/2016 VERNON COLLIER MD, Ot N18.6 END STAGE RENAL DISEASE 08/14/2016 VERNON COLLIER MD Ot R06.02 SHORTNESS OF BREATH 08/14/2016 VERNON COLLIER MD, Ot R07.9 CHEST PAIN, UNSPECIFIED 08/14/2016 VERNON COLLIER MD, Ot Z79.02 HALF-WAY (CURRENT) USE OF ANTITHROMBOTI 08/14/2016 VERNON COLLIER MD Ot Z79.4 HALF-WAY (CURRENT) USE OF INSULIN 08/14/2016 VERNON COLLIER MD, Ot Z79.82 HALF-WAY (CURRENT) USE OF ASPIRIN 08/14/2016 VERNON COLLIER MD Ot Z79.899 OTHER RADIOLOGICAL HEALTH SPECIALIST (CURRENT) DRUG THERAPY 08/14/2016 VERNON COLLIER MD, Ot Z95.5 PRESENCE OF CORONARY ANGIOPLASTY IMPLANT 08/14/2016 VERNON COLLIER MD Ot Z98.890 OTHER SPECIFIED POSTPROCEDURAL STATES 08/14/2016 VERNON COLLIER MD, Ot Z99.2 DEPENDENCE ON RENAL DIALYSIS 08/14/2016 VERNON COLLIER MD Ot Z99.81 DEPENDENCE ON SUPPLEMENTAL OXYGEN 08/18/2016 VERNON COLLIER MD Ot E11.9 TYPE 2 DIABETES MELLITUS WITHOUT COMPLIC 08/18/2016 VERNON COLLIER MD Ot E83.42 HYPOMAGNESEMIA 08/18/2016 VERNON COLLIER MD Ot E87.6 HYPOKALEMIA 08/18/2016 VERNON COLLIER MD Ot I12.0 HYP CHR KIDNEY DISEASE W STAGE 5 CHR KID 08/18/2016 VERNON COLLIER MD Ot I16.0 HYPERTENSIVE URGENCY 08/18/2016 VERNON COLLIER MD Ot I25.10 ATHSCL HEART DISEASE OF [place] CORONARY 08/18/2016 VERNON COLLIER MD Ot J44.9 CHRONIC OBSTRUCTIVE PULMONARY DISEASE , U 08/18/2016 VERNON COLLIER MD, Ot N18.6 END STAGE RENAL DISEASE 08/18/2016 VERNON COLLIER MD Ot R06.02 SHORTNESS OF BREATH 08/18/2016 VERNON COLLIER MD Ot R07.9 CHEST PAIN, UNSPECIFIED 08/18/2016 VERNON COLLIER MD Ot Z79.02 HALF-WAY (CURRENT) USE OF ANTITHROMBOTI 08/18/2016 VERNON COLLIER MD Ot Z79.4 HALF-WAY (CURRENT) USE OF INSULIN 08/18/2016 VERNON COLLIER MD Ot Z79.82 HALF-WAY (CURRENT) USE OF ASPIRIN 08/18/2016 VERNON COLLIER MD, Ot Z79.899 OTHER RADIOLOGICAL HEALTH SPECIALIST (CURRENT) DRUG THERAPY 08/18/2016 VERNON COLLIER MD Ot Z95.5 PRESENCE OF CORONARY ANGIOPLASTY IMPLANT 08/18/2016 VERNON COLLIER MD, Ot Z98.890 OTHER SPECIFIED POSTPROCEDURAL STATES 08/18/2016 VERNON COLLIER MD Ot Z99.2 DEPENDENCE ON RENAL DIALYSIS 08/18/2016 VERNON COLLIER MD Ot Z99.81 DEPENDENCE ON SUPPLEMENTAL OXYGEN 08/24/2016 VERNON COLLIER MD Ot E11.9 TYPE 2 DIABETES MELLITUS WITHOUT COMPLIC 08/24/2016 VERNON COLLIER MD Ot I10 ESSENTIAL (PRIMARY) HYPERTENSION 08/24/2016 VERNON COLLIER MD Ot J44.9 CHRONIC OBSTRUCTIVE PULMONARY DISEASE , U 08/24/2016 VERNON COLLIER MD Ot K59.00 CONSTIPATION, UNSPECIFIED 08/24/2016 VERNON COLLIER MD Ot N39.0 URINARY TRACT INFECTION, SITE NOT SPECIF 08/24/2016 VERNON COLLIER MD Ot R10.84 GENERALIZED ABDOMINAL PAIN 08/24/2016 VERNON COLLIER MD Ot Z79.4 RADIOLOGICAL HEALTH SPECIALIST (CURRENT) USE OF INSULIN 08/24/2016 VENRON COLLIER MD Ot Z79.82 RADIOLOGICAL HEALTH SPECIALIST (CURRENT) USE OF ASPIRIN 08/24/2016 VERNON COLLIER MD Ot Z79.899 OTHER RADIOLOGICAL HEALTH SPECIALIST (CURRENT) DRUG THERAPY 08/25/2016 VERNON COLLIER MD Ot E11.9 TYPE 2 DIABETES MELLITUS WITHOUT COMPLIC 08/25/2016 VERNON COLLIER MD Ot I10 ESSENTIAL (PRIMARY) HYPERTENSION 08/25/2016 VERNON COLLIER MD Ot J44.9 CHRONIC OBSTRUCTIVE PULMONARY DISEASE , U 08/25/2016 VERNON COLLIER MD Ot K59.00 CONSTIPATION, UNSPECIFIED 08/25/2016 VERNON COLLIER MD Ot N39.0 URINARY TRACT INFECTION, SITE NOT SPECIF 08/25/2016 VERNON COLLIER MD Ot R10.84 GENERALIZED ABDOMINAL PAIN 08/25/2016 VERNON COLLIER MD Ot Z79.4 RADIOLOGICAL HEALTH SPECIALIST (CURRENT) USE OF INSULIN 08/25/2016 VERNON COLLIER MD Ot Z79.82 HALF-WAY (CURRENT) USE OF ASPIRIN 08/25/2016 AMIRA MARSH, VERNON Cardona Ot Z79.899 OTHER HALF-WAY (CURRENT) DRUG THERAPY 09/23/2016 JESSIKA DO, ANNE MARIE K Ot E11.65 TYPE 2 DIABETES MELLITUS WITH HYPERGLYCE 09/23/2016 JESSIKA DO, ANNE MARIE K Ot I12.0 HYP CHR KIDNEY DISEASE W STAGE 5 CHR KID 09/23/2016 JESSIKA DO, ANNE MARIE K Ot I25.10 ATHSCL HEART DISEASE OF [place] CORONARY 09/23/2016 JESSIKA DO, ANNE MARIE K Ot I25.2 OLD MYOCARDIAL INFARCTION 09/23/2016 JESSIKA DO, ANNE MARIE K Ot I50.9 HEART FAILURE, UNSPECIFIED 09/23/2016 JESSIKA DO, ANNE MARIE K Ot I51.7 CARDIOMEGALY 09/23/2016 JESSIKA DO, ANNE MARIE K Ot J40 BRONCHITIS, NOT SPECIFIED ACUTE OR CH 09/23/2016 JESSIKA DO, ANNE MARIE K Ot J44.9 CHRONIC OBSTRUCTIVE PULMONARY DISEASE, U 09/23/2016 JESSIKA DO, ANNE MARIE K Ot N18.6 END STAGE RENAL DISEASE 09/23/2016 JESSIKA DO, ANNE MARIE K Ot R07.9 CHEST PAIN, UNSPECIFIED 09/23/2016 JESSIKA DO, ANNE MARIE K Ot Z79.02 HALF-WAY (CURRENT) USE OF ANTITHROMBOTI 09/23/2016 JESSIKA DO, ANNE MARIE K Ot Z79.4 RADIOLOGICAL HEALTH SPECIALIST (CURRENT) USE OF INSULIN 09/23/2016 JESSIKA DO, ANNE MARIE K Ot Z79.82 RADIOLOGICAL HEALTH SPECIALIST (CURRENT) USE OF ASPIRIN 09/23/2016 JESSIKA DO, ANNE MARIE K Ot Z79.899 OTHER RADIOLOGICAL HEALTH SPECIALIST (CURRENT) DRUG THERAPY 09/23/2016 JESSIKA DO, ANNE MARIE K Ot Z95.5 PRESENCE OF CORONARY ANGIOPLASTY IMPLANT 09/23/2016 JESSIKA DO, ANNE MARIE K Ot Z99.81 DEPENDENCE ON SUPPLEMENTAL OXYGEN 09/28/2016 MALVIN PAYAN MD Ot D63.1 ANEMIA IN CHRONIC KIDNEY DISEASE 09/28/2016 MALVIN PAYAN MD, Ot E03.9 HYPOTHYROIDISM, UNSPECIFIED 09/28/2016 MALVIN PAYAN MD, Ot E11.22 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 09/28/2016 MALVIN PAYAN MD, Ot E66.01 MORBID (SEVERE) OBESITY DUE TO EXCESS CA 09/28/2016 ORA MD, MALVIN K Ot E83.42 HYPOMAGNESEMIA 09/28/2016 MALVIN PAYAN MD Ot F32.9 MAJOR DEPRESSIVE DISORDER, SINGLE EPISOD 09/28/2016 MALVIN PAYAN MD, Ot F41.9 ANXIETY DISORDER, UNSPECIFIED 09/28/2016 MALVIN PAYAN MD, Ot I12.9 HYPERTENSIVE CHRONIC KIDNEY DISEASE W ST 09/28/2016 MALVIN PAYAN MD Ot I25.10 ATHSCL HEART DISEASE OF [place] CORONARY 09/28/2016 MALVIN PAYNA MD Ot I65.23 OCCLUSION AND STENOSIS OF BILATERAL [place] 09/28/2016 MALVIN PAYAN MD Ot N18.9 CHRONIC KIDNEY DISEASE, UNSPECIFIED 09/28/2016 MALVIN PAYAN MD, Ot Z45.2 ENCOUNTER FOR ADJUSTMENT AND MANAGEMENT 09/28/2016 MALVIN PAYAN MD, Ot Z68.41 BODY MASS INDEX (BMI) 40.0-44.9, ADULT 09/28/2016 MALVIN PAYAN MD, Ot Z79.4 HALF-WAY (CURRENT) USE OF INSULIN 09/28/2016 MALVIN PAYAN MD, Ot Z79.899 OTHER RADIOLOGICAL HEALTH SPECIALIST (CURRENT) DRUG THERAPY 10/01/2016 JESSIKA HUMMEL ANNE MARIE K Ot E11.65 TYPE 2 DIABETES MELLITUS WITH HYPERGLYCE 10/01/2016 JESSIKA HUMMEL ANNE MARIE K Ot I12.0 HYP CHR KIDNEY DISEASE W STAGE 5 CHR KID 10/01/2016 JESSIKA HUMMEL ANNE MARIE K Ot I25.10 ATHSCL HEART DISEASE OF [place] CORONARY 10/01/2016 GEORGE ROSEN DOA K Ot I25.2 OLD MYOCARDIAL INFARCTION 10/01/2016 GEORGE ROSEN DOA K Ot I50.9 HEART FAILURE, UNSPECIFIED 10/01/2016 GEORGE ROSEN DOA K Ot I51.7 CARDIOMEGALY 10/01/2016 JESSIKA HUMMEL ANNE MARIE K Ot J40 BRONCHITIS, NOT SPECIFIED ACUTE OR CH 10/01/2016 GEORGE ROSEN DOA K Ot J44.9 CHRONIC OBSTRUCTIVE PULMONARY DISEASE, U 10/01/2016 GEORGE ROSEN DOA K Ot N18.6 END STAGE RENAL DISEASE 10/01/2016 GEORGE ROSEN DOA K Ot R07.9 CHEST PAIN, UNSPECIFIED 10/01/2016 GEORGE ROSEN DOA K Ot Z79.02 HALF-WAY (CURRENT) USE OF ANTITHROMBOTI 10/01/2016 ANNE MARIE ROSEN DO Ot Z79.4 RADIOLOGICAL HEALTH SPECIALIST (CURRENT) USE OF INSULIN 10/01/2016 ANNE MARIE ROSEN DO Ot Z79.82 RADIOLOGICAL HEALTH SPECIALIST (CURRENT) USE OF ASPIRIN 10/01/2016 ANNE MARIE ROSEN DO, Ot Z79.899 OTHER RADIOLOGICAL HEALTH SPECIALIST (CURRENT) DRUG THERAPY 10/01/2016 ANNE MARIE ROSEN DO, Ot Z95.5 PRESENCE OF CORONARY ANGIOPLASTY IMPLANT 10/01/2016 ANNE MARIE ROSEN DO, Ot Z99.81 DEPENDENCE ON SUPPLEMENTAL OXYGEN 10/05/2016 MALVIN PAYAN MD, Ot D63.1 ANEMIA IN CHRONIC KIDNEY DISEASE 10/05/2016 MALVIN PAYAN MD, Ot E03.9 HYPOTHYROIDISM, UNSPECIFIED 10/05/2016 MALVIN PAYAN MD, Ot E11.22 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 10/05/2016 MALVIN PAYAN MD, Ot E66.01 MORBID (SEVERE) OBESITY DUE TO EXCESS CA 10/05/2016 MALVIN PAYAN MD, Ot E83.42 HYPOMAGNESEMIA 10/05/2016 MALVIN PAYAN MD, Ot F32.9 MAJOR DEPRESSIVE DISORDER, SINGLE EPISOD 10/05/2016 MALVIN PAYAN MD, Ot F41.9 ANXIETY DISORDER, UNSPECIFIED 10/05/2016 MALVIN PAYAN MD, Ot I12.9 HYPERTENSIVE CHRONIC KIDNEY DISEASE W ST 10/05/2016 MALVIN PAYAN MD, Ot I25.10 ATHSCL HEART DISEASE OF [place] CORONARY 10/05/2016 MALVIN PAYAN MD, Ot I65.23 OCCLUSION AND STENOSIS OF BILATERAL [place] 10/05/2016 MALVIN PAYAN MD, Ot N18.9 CHRONIC KIDNEY DISEASE, UNSPECIFIED 10/05/2016 MALVIN PAYAN MD, Ot Z45.2 ENCOUNTER FOR ADJUSTMENT AND MANAGEMENT 10/05/2016 MALVIN PAYAN MD, Ot Z68.41 BODY MASS INDEX (BMI) 40.0-44.9, ADULT 10/05/2016 MALVIN PAYAN MD, Ot Z79.4 RADIOLOGICAL HEALTH SPECIALIST (CURRENT) USE OF INSULIN 10/05/2016 MALVIN PAYAN MD, Ot Z79.899 OTHER RADIOLOGICAL HEALTH SPECIALIST (CURRENT) DRUG THERAPY 10/08/2016 MALVIN PAYAN MD, Ot D63.1 ANEMIA IN CHRONIC KIDNEY DISEASE 10/08/2016 MALVIN PAYAN MD, Ot E03.9 HYPOTHYROIDISM, UNSPECIFIED 10/08/2016 MALVIN PAYAN MD, Ot E11.22 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 10/08/2016 MALVIN PAYAN MD, Ot E66.01 MORBID (SEVERE) OBESITY DUE TO EXCESS CA 10/08/2016 MALVIN PAYAN MD Ot E83.42 HYPOMAGNESEMIA 10/08/2016 MALVIN PAYAN MD, Ot F32.9 MAJOR DEPRESSIVE DISORDER, SINGLE EPISOD 10/08/2016 MALVIN PAYAN MD, Ot F41.9 ANXIETY DISORDER, UNSPECIFIED 10/08/2016 MALVIN PAYAN MD Ot I12.9 HYPERTENSIVE CHRONIC KIDNEY DISEASE W ST 10/08/2016 MALVIN PAYAN MD, Ot I25.10 ATHSCL HEART DISEASE OF [place] CORONARY 10/08/2016 MALVIN PAYAN MD, Ot I65.23 OCCLUSION AND STENOSIS OF [place]IL[place]AL [place] 10/08/2016 MALVIN PAYAN MD, Ot N18.9 CHRONIC KIDNEY DISEASE, UNSPECIFIED 10/08/2016 MALVIN PAYAN MD, Ot Z45.2 ENCOUNTER FOR ADJUSTMENT AND MANAGEMENT 10/08/2016 MALVIN PAYAN MD, Ot Z68.41 BODY MASS INDEX (BMI) 40.0-44.9, ADULT 10/08/2016 MALVIN PAYAN MD, Ot Z79.4 HALF-WAY (CURRENT) USE OF INSULIN 10/08/2016 MALVIN PAYAN MD, Ot Z79.899 OTHER HALF-WAY (CURRENT) DRUG THERAPY 10/10/2016 GUMARO HEBERT MD Ot E11.9 TYPE 2 DIABETES MELLITUS WITHOUT COMPLIC 10/10/2016 GUMARO HEBERT MD, Ot I12.0 HYP CHR KIDNEY DISEASE W STAGE 5 CHR KID 10/10/2016 GUMARO HEBERT MD, Ot I25.10 ATHSCL HEART DISEASE OF [place] CORONARY 10/10/2016 GUMARO HEBERT MD, Ot I51.7 CARDIOMEGALY 10/10/2016 GUMARO HEBERT MD, Ot N18.6 END STAGE RENAL DISEASE 10/10/2016 GUMARO HEBERT MD Ot R07.9 CHEST PAIN, UNSPECIFIED 10/10/2016 GUMARO HEBERT MD, Ot Z79.02 RADIOLOGICAL HEALTH SPECIALIST (CURRENT) USE OF ANTITHROMBOTI 10/10/2016 GUMARO HEBERT MD, Ot Z79.4 RADIOLOGICAL HEALTH SPECIALIST (CURRENT) USE OF INSULIN 10/10/2016 GUMARO HEBERT MD, Ot Z79.899 OTHER RADIOLOGICAL HEALTH SPECIALIST (CURRENT) DRUG THERAPY 10/10/2016 GUMARO HEBERT MD, Ot Z95.5 PRESENCE OF CORONARY ANGIOPLASTY IMPLANT 10/11/2016 GUMARO HEBERT MD Ot E11.9 TYPE 2 DIABETES MELLITUS WITHOUT COMPLIC 10/11/2016 GUMARO HEBERT MD, Ot I12.0 HYP CHR KIDNEY DISEASE W STAGE 5 CHR KID 10/11/2016 GUMARO HEBERT MD, Ot I25.10 ATHSCL HEART DISEASE OF [place] CORONARY 10/11/2016 GUMARO HEBERT MD, Ot I51.7 CARDIOMEGALY 10/11/2016 GUMARO HEBERT MD, Ot N18.6 END STAGE RENAL DISEASE 10/11/2016 GUMARO HEBERT MD, Ot R07.9 CHEST PAIN, UNSPECIFIED 10/11/2016 GUMARO HEBERT MD, Ot Z79.02 HALF-WAY (CURRENT) USE OF ANTITHROMBOTI 10/11/2016 GUMARO HEBERT MD, Ot Z79.4 HALF-WAY (CURRENT) USE OF INSULIN 10/11/2016 GUMARO HEBERT MD, Ot Z79.899 OTHER HALF-WAY (CURRENT) DRUG THERAPY 10/11/2016 GUMARO HEBERT MD, Ot Z95.5 PRESENCE OF CORONARY ANGIOPLASTY IMPLANT 11/18/2016 MALVIN PAYAN MD, Ot D63.1 ANEMIA IN CHRONIC KIDNEY DISEASE 11/18/2016 MALVIN PAYAN MD Ot E03.9 HYPOTHYROIDISM, UNSPECIFIED 11/18/2016 MALVIN PAYAN MD Ot E11.22 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 11/18/2016 MALVIN PAYAN MD Ot E66.01 MORBID (SEVERE) OBESITY DUE TO EXCESS CA 11/18/2016 MALVIN PAYAN MD Ot E83.42 HYPOMAGNESEMIA 11/18/2016 MALVIN PAYAN MD Ot F32.9 MAJOR DEPRESSIVE DISORDER, SINGLE EPISOD 11/18/2016 MALVIN PAYAN MD Ot F41.9 ANXIETY DISORDER, UNSPECIFIED 11/18/2016 MALVIN PAYAN MD, Ot I12.9 HYPERTENSIVE CHRONIC KIDNEY DISEASE W ST 11/18/2016 MALVIN PAYAN MD Ot I25.10 ATHSCL HEART DISEASE OF [place] CORONARY 11/18/2016 MALVIN PAYAN MD Ot I65.23 OCCLUSION AND STENOSIS OF [place] 11/18/2016 MALVIN PAYAN MD Ot N18.9 CHRONIC KIDNEY DISEASE, UNSPECIFIED 11/18/2016 MALVIN PAYAN MD Ot Z68.41 BODY MASS INDEX (BMI) 40.0-44.9, ADULT 11/18/2016 MALVIN PAYAN MD Ot Z79.4 HALF-WAY (CURRENT) USE OF INSULIN 11/18/2016 MALVIN PAYAN MD Ot Z79.899 OTHER RADIOLOGICAL HEALTH SPECIALIST (CURRENT) DRUG THERAPY 12/18/2016 Ot 414.00 CORON ATHEROSCLER NOS TYPE VESSEL, NATIV 12/18/2016 ISABEL HUMPHREYS MD R Ot 300.00 ANXIETY STATE NOS 12/18/2016 ISABEL HUMPHREYS MD R Ot 311 DEPRESSIVE DISORDER NEC 12/18/2016 MARIBELL MARAVILLA BUS DRIVER/MONITOR Ot 790.6 ABN BLOOD CHEMISTRY NEC 12/18/2016 ISABEL HUMPHREYS MD Ot 285.9 ANEMIA NOS 12/18/2016 ISABEL HUMPHREYS MD R Ot 460 ACUTE NASOPHARYNGITIS 12/18/2016 MARIBELL MARAVILLA L BUS DRIVER/MONITOR Ot 272.4 HYPERLIPIDEMIA NEC/NOS 12/18/2016 MARIBELL MARAVILLA L BUS DRIVER/MONITOR Ot 401.9 HYPERTENSION NOS 12/18/2016 LEONIDES MARAVILLAHER L BUS DRIVER/MONITOR Ot 414.00 CORON ATHEROSCLER NOS TYPE VESSEL, NATIV 12/18/2016 ISABEL HUMPHREYS MD R Ot 348.89 OTHER CONDITIONS OF BRAIN 12/18/2016 ISABEL HUMPHREYS MD R Ot 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 12/18/2016 ISABEL HUMPHREYS MD R Ot 780.97 ALTERED MENTAL STATUS 12/18/2016 ISABEL HUMPHREYS MD R Ot 782.0 SKIN SENSATION DISTURB 12/18/2016 ISABEL UHMPHREYS MD R Ot V76.12 OTH SCREEN MAMMO-MALIGN NEOPLASM OF [place] 12/18/2016 Ot 250.01 DIAB AMBAR WO COMPL, TYPE I [JUVENILE TYP 12/18/2016 DAVE MARSH FACC, ALI FACP CCDS Ot D63.1 ANEMIA IN CHRONIC KIDNEY DISEASE 12/18/2016 DAVE MARSH FACC, ALI FACP CCDS Ot E11.9 TYPE 2 DIABETES MELLITUS WITHOUT COMPLIC 12/18/2016 DAVE MARSH FACC, ALI FACP CCDS Ot E66.8 OTHER OBESITY 12/18/2016 DAVE MARSH FACC, ALI FACP CCDS Ot I10 ESSENTIAL (PRIMARY) HYPERTENSION 12/18/2016 DAVE MARSH FACC, ALI FACP CCDS Ot I25.10 ATHSCL HEART DISEASE OF [place] CORONARY 12/18/2016 DAVE MARSH FACC, ALI FACP CCDS Ot J43.8 OTHER EMPHYSEMA 12/18/2016 NICOLETTE MARSH DULCE Ot E11.9 TYPE 2 DIABETES MELLITUS WITHOUT COMPLIC 12/18/2016 NICOLETTE MARSH DULCE Ot E66.9 OBESITY, UNSPECIFIED 12/18/2016 NICOLETTE MARSH, DULCE Ot I12.9 HYPERTENSIVE CHRONIC KIDNEY DISEASE W ST 12/18/2016 NICOLETTE MARSH DULCE Ot I25.10 ATHSCL HEART DISEASE OF [place] CORONARY 12/18/2016 NICOLETTE MARSH DULCE Ot J44.9 CHRONIC OBSTRUCTIVE PULMONARY DISEASE, U 12/18/2016 NICOLETTE MARSH DULCE Ot N18.3 CHRONIC KIDNEY DISEASE, STAGE 3 (MODERAT 12/18/2016 NICOLETTE MARSH, DULCE Ot 403.90 HYPTNSV CHR KID DIS, UNSPEC, W CHR KD ST 12/18/2016 NICOLETTE MARSH DULCE Ot 585.3 CHRONIC KIDNEY DISEASE, STAGE III (MODER 12/18/2016 DAVE MARSH FACC, ALI FACP CCDS Ot E11.21 TYPE 2 DIABETES MELLITUS WITH DIABETIC N 12/18/2016 DAVE MARSH FACC, ALI FACP CCDS Ot I25.10 ATHSCL HEART DISEASE OF [place] CORONARY 12/18/2016 DAVE MARSH FACC, EARL FACP CCDS Ot I65.23 OCCLUSION AND STENOSIS OF BILATERAL [place] 12/18/2016 DAVE MARSH FACC, ALI FACP CCDS Ot I73.9 PERIPHERAL VASCULAR DISEASE, UNSPECIFIED 12/18/2016 DAVE MARSH FACC, ALI FACP CCDS Ot J44.9 CHRONIC OBSTRUCTIVE PULMONARY DISEASE, U 12/18/2016 DAVE MARSH FACC, ALI FACP CCDS Ot N18.9 CHRONIC KIDNEY DISEASE, UNSPECIFIED 12/18/2016 DAVE MARSH FACC, ALI FACP CCDS Ot R00.2 PALPITATIONS 12/18/2016 DAVE MARSH FACC, ALI FACP CCDS Ot D63.1 ANEMIA IN CHRONIC KIDNEY DISEASE 12/18/2016 DAVE MARSH FACC, ALI FACP CCDS Ot E11.9 TYPE 2 DIABETES MELLITUS WITHOUT COMPLIC 12/18/2016 DAVE MARSH FACC, ALI FACP CCDS Ot I25.10 ATHSCL HEART DISEASE OF [place] CORONARY 12/18/2016 DAVE MARSH [facility], [facility] I65.23 OCCLUSION AND STENOSIS OF [place]ILATERAL [place] 12/18/2016 DAVE MARSH FAC, ALI FACP CCDS Ot I73.9 PERIPHERAL VASCULAR DISEASE, UNSPECIFIED 12/18/2016 DAVE MARSH FAC, ALI FACP CCDS Ot J43.8 OTHER EMPHYSEMA 12/18/2016 DAVE MARSH FAC, ALI FACP CCDS Ot R00.2 PALPITATIONS 12/18/2016 KARI EDEN APRN Ot G47.33 OBSTRUCTIVE SLEEP APNEA (ADULT) ( PEDIATR 12/18/2016 KARI EDEN APRN Ot R06.00 DYSPNEA, UNSPECIFIED 12/18/2016 ISABEL HUMPHREYS MD Ot E11.9 TYPE 2 DIABETES MELLITUS WITHOUT COMPLIC 12/18/2016 ISABEL HUMPHREYS MD Ot I10 ESSENTIAL (PRIMARY) HYPERTENSION 12/18/2016 DULCE WILL MD Ot I12.9 HYPERTENSIVE CHRONIC KIDNEY DISEASE W ST 12/18/2016 NICOLETTE MARSH, DULCE Ot N18.3 CHRONIC KIDNEY DISEASE, STAGE 3 (MODERAT 12/18/2016 NICOLETTE MARSH, DULCE Ot 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 O 12/18/2016 DULCE WILL MD Ot N18.3 CHRONIC KIDNEY DISEASE, STAGE 3 (MODERAT 12/18/2016 NICOLETTE MARSH, DULCE Ot R31.9 HEMATURIA, UNSPECIFIED 12/18/2016 REJI MA MD Ot N18.6 END STAGE RENAL DISEASE 12/18/2016 FRANCESCA MARSH, REJI Ot Z01.89 ENCOUNTER FOR OTHER SPECIFIED SPECIAL EX 12/18/2016 FRANCESCA MARSH, REJI Ot Z99.2 DEPENDENCE ON RENAL DIALYSIS 12/18/2016 BIBI MARSH, ANTONIO Ot H25.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, LEFT EYE 12/18/2016 MALVIN PAYAN MD Ot D63.1 ANEMIA IN CHRONIC KIDNEY DISEASE 12/18/2016 MALVIN PAYAN MD Ot E03.9 HYPOTHYROIDISM, UNSPECIFIED 12/18/2016 MALVIN PAYAN MD Ot E11.22 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 12/18/2016 MALVIN PAYAN MD Ot E66.01 MORBID (SEVERE) OBESITY DUE TO EXCESS CA 12/18/2016 MALVIN PAYAN MD Ot E83.42 HYPOMAGNESEMIA 12/18/2016 MALVIN PAYAN MD Ot F32.9 MAJOR DEPRESSIVE DISORDER, SINGLE EPISOD 12/18/2016 MALVIN PAYAN MD, Ot F41.9 ANXIETY DISORDER, UNSPECIFIED 12/18/2016 MALVIN PAYAN MD Ot I12.9 HYPERTENSIVE CHRONIC KIDNEY DISEASE W ST 12/18/2016 MALVIN PAYAN MD Ot I25.10 ATHSCL HEART DISEASE OF [place] CORONARY 12/18/2016 MALVIN PAYAN MD Ot I65.23 OCCLUSION AND STENOSIS OF [place]ILATERAL [place] 12/18/2016 MALVIN PAYAN MD Ot N18.9 CHRONIC KIDNEY DISEASE, UNSPECIFIED 12/18/2016 MALVIN PAYAN MD Ot Z68.41 BODY MASS INDEX (BMI) 40.0-44.9, ADULT 12/18/2016 MALVIN PAYAN MD, Ot Z79.4 RADIOLOGICAL HEALTH SPECIALIST (CURRENT) USE OF INSULIN 12/18/2016 MALVIN PAYAN MD, Ot Z79.899 OTHER RADIOLOGICAL HEALTH SPECIALIST (CURRENT) DRUG THERAPY 12/18/2016 Ot 414.00 CORON ATHEROSCLER NOS TYPE VESSEL, NATIV 12/18/2016 ISABEL HUMPHREYS MD R Ot 300.00 ANXIETY STATE NOS 12/18/2016 ISABEL HUMPHREYS MD Ot 311 DEPRESSIVE DISORDER NEC 12/18/2016 MARIBELL MARAVILLA BUS DRIVER/MONITOR Ot 790.6 ABN BLOOD CHEMISTRY NEC 12/18/2016 ISABEL HUMPHREYS MD R Ot 285.9 ANEMIA NOS 12/18/2016 ISABEL HUMPHREYS MD R Ot 460 ACUTE NASOPHARYNGITIS 12/18/2016 MARIBELL MARAVILLA BUS DRIVER/MONITOR Ot 272.4 HYPERLIPIDEMIA NEC/NOS 12/18/2016 MARIBELL MARAVILLA BUS DRIVER/MONITOR Ot 401.9 HYPERTENSION NOS 12/18/2016 MARIBELL MARAVILLA BUS DRIVER/MONITOR Ot 414.00 CORON ATHEROSCLER NOS TYPE VESSEL, NATIV 12/18/2016 ISABEL HUMPHREYS MD R Ot 348.89 OTHER CONDITIONS OF BRAIN 12/18/2016 ISABEL HUMPHREYS MD R Ot 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 12/18/2016 ISABEL HUMPHREYS MD R Ot 780.97 ALTERED MENTAL STATUS 12/18/2016 ISABEL HUMPHREYS MD R Ot 782.0 SKIN SENSATION DISTURB 12/18/2016 ISABEL HUMPHREYS MD R Ot V76.12 OTH SCREEN MAMMO-MALIGN NEOPLASM OF [place] 12/18/2016 Ot 250.01 DIAB AMBAR WO COMPL, TYPE I [JUVENILE TYP 12/18/2016 DAVE MARSH FACC, EARL FACP CCDS Ot D63.1 ANEMIA IN CHRONIC KIDNEY DISEASE 12/18/2016 DAVE MARSH FACC, ALI FACP CCDS Ot E11.9 TYPE 2 DIABETES MELLITUS WITHOUT COMPLIC 12/18/2016 DAVE MARSH FACC, ALI FACP CCDS Ot E66.8 OTHER OBESITY 12/18/2016 DAVE MARSH FACC, EARL FACP CCDS Ot I10 ESSENTIAL (PRIMARY) HYPERTENSION 12/18/2016 DAVE MARSH FACC, EARL FACP CCDS Ot I25.10 ATHSCL HEART DISEASE OF [place] CORONARY 12/18/2016 DAVE MARSH FACC, EARL FACP CCDS Ot J43.8 OTHER EMPHYSEMA 12/18/2016 NICOLETTE MARSH, DULCE Ot E11.9 TYPE 2 DIABETES MELLITUS WITHOUT COMPLIC 12/18/2016 NICOLETTE MARSH, DULCE Ot E66.9 OBESITY, UNSPECIFIED 12/18/2016 NICOLETTE MARSH DULCE Ot I12.9 HYPERTENSIVE CHRONIC KIDNEY DISEASE W ST 12/18/2016 NICOLETTE MARSH, DULCE Ot I25.10 ATHSCL HEART DISEASE OF [place] CORONARY 12/18/2016 NICOLETTE MARSH, DULCE Ot J44.9 CHRONIC OBSTRUCTIVE PULMONARY DISEASE, U 12/18/2016 NICOLETTE MARSH, DULCE Ot N18.3 CHRONIC KIDNEY DISEASE, STAGE 3 (MODERAT 12/18/2016 NICOLETTE MARSH, DULCE Ot 403.90 HYPTNSV CHR KID DIS, UNSPEC, W CHR KD ST 12/18/2016 NICOLETTE MARSH, DULCE Ot 585.3 CHRONIC KIDNEY DISEASE, STAGE III (MODER 12/18/2016 DAVE MARSH FACC, EARL FACP CCDS Ot E11.21 TYPE 2 DIABETES MELLITUS WITH DIABETIC N 12/18/2016 DAVE MARSH FACC, ALI FACP CCDS Ot I25.10 ATHSCL HEART DISEASE OF [place] CORONARY 12/18/2016 DAVE MARSH FACC, ALI FACP CCDS Ot I65.23 OCCLUSION AND STENOSIS OF [place]ILATERAL [place] 12/18/2016 DAVE MARSH FACC, ALI FACP CCDS Ot I73.9 PERIPHERAL VASCULAR DISEASE, UNSPECIFIED 12/18/2016 DAVE MARSH FACC, ALI FACP CCDS Ot J44.9 CHRONIC OBSTRUCTIVE PULMONARY DISEASE, U 12/18/2016 DAVE MARSH FACC, ALI FACP CCDS Ot N18.9 CHRONIC KIDNEY DISEASE, UNSPECIFIED 12/18/2016 DAVE MARSH FACDavid, ALI FACP CCDS Ot R00.2 PALPITATIONS 12/18/2016 DAVE MARSH FACC, ALI FACP CCDS Ot D63.1 ANEMIA IN CHRONIC KIDNEY DISEASE 12/18/2016 DAVE MARSH FACC, ALI FACP CCDS Ot E11.9 TYPE 2 DIABETES MELLITUS WITHOUT COMPLIC 12/18/2016 DAVE MARSH FACC, ALI FACP CCDS Ot I25.10 ATHSCL HEART DISEASE OF [place] CORONARY 12/18/2016 DAVE MARSH FACC, ALI FACP CCDS Ot I65.23 OCCLUSION AND STENOSIS OF [place]ILATERAL [place] 12/18/2016 DAVE MARSH FACC, ALI FACP CCDS Ot I73.9 PERIPHERAL VASCULAR DISEASE, UNSPECIFIED 12/18/2016 DAVE MARSH FACC, ALI FACP CCDS Ot J43.8 OTHER EMPHYSEMA 12/18/2016 DAVE MARSH FACC, ALI FACP CCDS Ot R00.2 PALPITATIONS 12/18/2016 KARI EDEN APRN Ot G47.33 OBSTRUCTIVE SLEEP APNEA (ADULT) ( PEDIATR 12/18/2016 KARI EDEN APRN Ot R06.00 DYSPNEA, UNSPECIFIED 12/18/2016 JULIANN MARSH, ISABEL R Ot E11.9 TYPE 2 DIABETES MELLITUS WITHOUT COMPLIC 12/18/2016 JULIANN MARSH, ISABEL R Ot I10 ESSENTIAL (PRIMARY) HYPERTENSION 12/18/2016 NICOLETTE MARSH, DULCE Ot I12.9 HYPERTENSIVE CHRONIC KIDNEY DISEASE W ST 12/18/2016 NICOLETTE MARSH, DULCE Ot N18.3 CHRONIC KIDNEY DISEASE, STAGE 3 (MODERAT 12/18/2016 NICOLETTE MARSH, DULCE Ot 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 O 12/18/2016 DULCE WILL MD Ot N18.3 CHRONIC KIDNEY DISEASE, STAGE 3 (MODERAT 12/18/2016 NICOLETTE MARSH, DULCE Ot R31.9 HEMATURIA, UNSPECIFIED 12/18/2016 REJI MA MD Ot N18.6 END STAGE RENAL DISEASE 12/18/2016 REJI MA MD Ot Z01.89 ENCOUNTER FOR OTHER SPECIFIED SPECIAL EX 12/18/2016 FRANCESCA MARSH, REJI Ot Z99.2 DEPENDENCE ON RENAL DIALYSIS 12/18/2016 BIBI MARSH, ANTONIO Ot H25.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, LEFT EYE 12/18/2016 MALVIN PAYAN MD Ot D63.1 ANEMIA IN CHRONIC KIDNEY DISEASE 12/18/2016 MALVIN PAYAN MD Ot E03.9 HYPOTHYROIDISM, UNSPECIFIED 12/18/2016 MALVIN PAYAN MD Ot E11.22 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 12/18/2016 MALVIN PAYAN MD Ot E66.01 MORBID (SEVERE) OBESITY DUE TO EXCESS CA 12/18/2016 MALVIN PAYAN MD Ot E83.42 HYPOMAGNESEMIA 12/18/2016 MALVIN PAYAN MD, Ot F32.9 MAJOR DEPRESSIVE DISORDER, SINGLE EPISOD 12/18/2016 MALVIN PAYAN MD, Ot F41.9 ANXIETY DISORDER, UNSPECIFIED 12/18/2016 MALVIN PAYAN MD Ot I12.9 HYPERTENSIVE CHRONIC KIDNEY DISEASE W ST 12/18/2016 MALVIN PAYAN MD Ot I25.10 ATHSCL HEART DISEASE OF [place] CORONARY 12/18/2016 MALVIN PAYAN MD Ot I65.23 OCCLUSION AND STENOSIS OF BILATERAL [place] 12/18/2016 MALVIN PAYAN MD Ot N18.9 CHRONIC KIDNEY DISEASE, UNSPECIFIED 12/18/2016 MALVIN PAYAN MD Ot Z68.41 BODY MASS INDEX (BMI) 40.0-44.9, ADULT 12/18/2016 MALVIN PAYAN MD Ot Z79.4 HALF-WAY (CURRENT) USE OF INSULIN 12/18/2016 MALVIN PAYAN MD, Ot Z79.899 OTHER RADIOLOGICAL HEALTH SPECIALIST (CURRENT) DRUG THERAPY 12/18/2016 TREVOR TURCIOS MD, Ot E11.9 TYPE 2 DIABETES MELLITUS WITHOUT COMPLIC 12/18/2016 TREVOR TURCIOS MD, Ot I12.0 HYP CHR KIDNEY DISEASE W STAGE 5 CHR KID 12/18/2016 TREVOR TURCIOS MD, Ot I51.7 CARDIOMEGALY 12/18/2016 TREVOR TURCIOS MD, Ot J44.9 CHRONIC OBSTRUCTIVE PULMONARY DISEASE, U 12/18/2016 TREVOR TURCIOS MD, Ot N18.6 END STAGE RENAL DISEASE 12/18/2016 TREVOR TURCIOS MD Ot R07.9 CHEST PAIN, UNSPECIFIED 12/18/2016 TREVOR TURCIOS MD, Ot Z79.4 RADIOLOGICAL HEALTH SPECIALIST (CURRENT) USE OF INSULIN 12/18/2016 TREVOR TURCIOS MD Ot Z79.82 RADIOLOGICAL HEALTH SPECIALIST (CURRENT) USE OF ASPIRIN 12/18/2016 TREVOR TURCIOS MD Ot Z79.899 OTHER RADIOLOGICAL HEALTH SPECIALIST (CURRENT) DRUG THERAPY 12/18/2016 TREVOR TURCIOS MD Ot Z99.2 DEPENDENCE ON RENAL DIALYSIS 12/21/2016 TREVOR TURCIOS MD Ot E11.9 TYPE 2 DIABETES MELLITUS WITHOUT COMPLIC 12/21/2016 TREVOR TURCIOS MD Ot I12.0 HYP CHR KIDNEY DISEASE W STAGE 5 CHR KID 12/21/2016 TREVOR TURCIOS MD Ot I51.7 CARDIOMEGALY 12/21/2016 TREVOR TURCIOS MD Ot J44.9 CHRONIC OBSTRUCTIVE PULMONARY DISEASE, U 12/21/2016 TREVOR TURCIOS MD Ot N18.6 END STAGE RENAL DISEASE 12/21/2016 TREVOR TURCIOS MD Ot R07.9 CHEST PAIN, UNSPECIFIED 12/21/2016 TREVOR TURCIOS MD Ot Z79.4 HALF-WAY (CURRENT) USE OF INSULIN 12/21/2016 TREVOR TURCIOS MD Ot Z79.82 HALF-WAY (CURRENT) USE OF ASPIRIN 12/21/2016 TREVOR TURCIOS MD Ot Z79.899 OTHER HALF-WAY (CURRENT) DRUG THERAPY 12/21/2016 TREVOR TURCIOS MD Ot Z99.2 DEPENDENCE ON RENAL DIALYSIS 12/22/2016 TREVOR TURCIOS MD Ot E11.9 TYPE 2 DIABETES MELLITUS WITHOUT COMPLIC 12/22/2016 TREVOR TURCIOS MD Ot I12.0 HYP CHR KIDNEY DISEASE W STAGE 5 CHR KID 12/22/2016 TREVOR TURCIOS MD Ot I51.7 CARDIOMEGALY 12/22/2016 TREVOR TURCIOS MD Ot J44.9 CHRONIC OBSTRUCTIVE PULMONARY DISEASE, U 12/22/2016 TREVOR TURCIOS MD Ot N18.6 END STAGE RENAL DISEASE 12/22/2016 TREVOR TURCIOS MD Ot R07.9 CHEST PAIN, UNSPECIFIED 12/22/2016 TREVOR TURCIOS MD Ot Z79.4 RADIOLOGICAL HEALTH SPECIALIST (CURRENT) USE OF INSULIN 12/22/2016 TREVOR TURCIOS MD Ot Z79.82 RADIOLOGICAL HEALTH SPECIALIST (CURRENT) USE OF ASPIRIN 12/22/2016 TREVOR TURCIOS MD, Ot Z79.899 OTHER RADIOLOGICAL HEALTH SPECIALIST (CURRENT) DRUG THERAPY 12/22/2016 TREVOR TURCIOS MD, Ot Z99.2 DEPENDENCE ON RENAL DIALYSIS 01/05/2017 MALVIN PAYAN MD, Ot D63.1 ANEMIA IN CHRONIC KIDNEY DISEASE 01/05/2017 MALVIN PAYAN MD, Ot E03.9 HYPOTHYROIDISM, UNSPECIFIED 01/05/2017 MALVIN PAYAN MD Ot E11.22 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 01/05/2017 MALVIN PAYAN MD, Ot E66.01 MORBID (SEVERE) OBESITY DUE TO EXCESS CA 01/05/2017 MALVIN PAYAN MD, Ot E83.42 HYPOMAGNESEMIA 01/05/2017 MALVIN PAYAN MD, Ot F32.9 MAJOR DEPRESSIVE DISORDER, SINGLE EPISOD 01/05/2017 MALVIN PAYAN MD, Ot F41.9 ANXIETY DISORDER, UNSPECIFIED 01/05/2017 MALVIN PAYAN MD, Ot I12.9 HYPERTENSIVE CHRONIC KIDNEY DISEASE W ST 01/05/2017 MALVIN PAYAN MD, Ot I25.10 ATHSCL HEART DISEASE OF [place] CORONARY 01/05/2017 MALVIN PAYAN MD, Ot I65.23 OCCLUSION AND STENOSIS OF BILATERAL [place] 01/05/2017 MALVIN PAYAN MD, Ot N18.9 CHRONIC KIDNEY DISEASE, UNSPECIFIED 01/05/2017 MALVIN PAYAN MD, Ot Z68.41 BODY MASS INDEX (BMI) 40.0-44.9, ADULT 01/05/2017 MALVIN PAYAN MD Ot Z79.4 HALF-WAY (CURRENT) USE OF INSULIN 01/05/2017 MALVIN PAYAN MD, Ot Z79.899 OTHER HALF-WAY (CURRENT) DRUG THERAPY 01/06/2017 MARCELA MENDEZ DO, Ot E11.9 TYPE 2 DIABETES MELLITUS WITHOUT COMPLIC 01/06/2017 MARCELA MENDEZ DO, Ot I12.0 HYP CHR KIDNEY DISEASE W STAGE 5 CHR KID 01/06/2017 MARCELA MENDEZ DO, Ot I51.7 CARDIOMEGALY 01/06/2017 MARCELA MENDEZ DO, Ot N18.6 END STAGE RENAL DISEASE 01/06/2017 MARCELA MENDEZ DO, Ot R07.89 OTHER CHEST PAIN 01/06/2017 MARCELA MENDEZ DO, Ot R07.9 CHEST PAIN, UNSPECIFIED 01/06/2017 MARCELA MENDEZ DO, Ot Z79.02 RADIOLOGICAL HEALTH SPECIALIST (CURRENT) USE OF ANTITHROMBOTI 01/06/2017 MARCELA MENDEZ DO, Ot Z79.4 HALF-WAY (CURRENT) USE OF INSULIN 01/06/2017 MARCELA MENDEZ DO, Ot Z79.82 RADIOLOGICAL HEALTH SPECIALIST (CURRENT) USE OF ASPIRIN 01/06/2017 MARCELA MENDEZ DO, Ot Z79.899 OTHER RADIOLOGICAL HEALTH SPECIALIST (CURRENT) DRUG THERAPY 01/06/2017 MARCELA MENDEZ DO, Ot Z99.2 DEPENDENCE ON RENAL DIALYSIS 01/07/2017 MARCELA MENDEZ DO Ot E11.9 TYPE 2 DIABETES MELLITUS WITHOUT COMPLIC 01/07/2017 MARCELA MENDEZ DO Ot I12.0 HYP CHR KIDNEY DISEASE W STAGE 5 CHR KID 01/07/2017 MARCELA MENDEZ DO Ot I51.7 CARDIOMEGALY 01/07/2017 MARCELA MENDEZ DO Ot N18.6 END STAGE RENAL DISEASE 01/07/2017 MARCELA MENDEZ DO Ot R07.89 OTHER CHEST PAIN 01/07/2017 MARCELA MENDEZ DO Ot R07.9 CHEST PAIN, UNSPECIFIED 01/07/2017 MARCELA MENDEZ DO, Ot Z79.02 HALF-WAY (CURRENT) USE OF ANTITHROMBOTI 01/07/2017 MARCELA MENDEZ DO, Ot Z79.4 HALF-WAY (CURRENT) USE OF INSULIN 01/07/2017 MARCELA MENDEZ DO, Ot Z79.82 RADIOLOGICAL HEALTH SPECIALIST (CURRENT) USE OF ASPIRIN 01/07/2017 MARCELA MENDEZ DO, Ot Z79.899 OTHER HALF-WAY (CURRENT) DRUG THERAPY 01/07/2017 MARCELA MENDEZ DO, Ot Z99.2 DEPENDENCE ON RENAL DIALYSIS 01/08/2017 MARCELA MENDEZ DO, Ot E11.9 TYPE 2 DIABETES MELLITUS WITHOUT COMPLIC 01/08/2017 MARCELA MNEDEZ DO Ot I12.0 HYP CHR KIDNEY DISEASE W STAGE 5 CHR KID 01/08/2017 MARCELA MENDEZ DO Ot I51.7 CARDIOMEGALY 01/08/2017 MARCELA MENDEZ DO Ot N18.6 END STAGE RENAL DISEASE 01/08/2017 MARCELA MENDEZ DO Ot R07.89 OTHER CHEST PAIN 01/08/2017 MARCELA MENDEZ DO Ot R07.9 CHEST PAIN, UNSPECIFIED 01/08/2017 MARCELA MENDEZ DO Ot Z79.02 RADIOLOGICAL HEALTH SPECIALIST (CURRENT) USE OF ANTITHROMBOTI 01/08/2017 MARCELA MENDEZ DO Ot Z79.4 RADIOLOGICAL HEALTH SPECIALIST (CURRENT) USE OF INSULIN 01/08/2017 MARCELA MENDEZ DO Ot Z79.82 RADIOLOGICAL HEALTH SPECIALIST (CURRENT) USE OF ASPIRIN 01/08/2017 MARCELA MENDEZ DO Ot Z79.899 OTHER RADIOLOGICAL HEALTH SPECIALIST (CURRENT) DRUG THERAPY 01/08/2017 MARCELA MENDEZ DO Ot Z99.2 DEPENDENCE ON RENAL DIALYSIS 01/18/2017 URBAN JOHNSON APRN Ot E11.9 TYPE 2 DIABETES MELLITUS WITHOUT COMPLIC 01/18/2017 URBAN JOHNSON APRN Ot I12.0 HYP CHR KIDNEY DISEASE W STAGE 5 CHR KID 01/18/2017 URBAN JOHNSON APRN Ot J44.9 CHRONIC OBSTRUCTIVE PULMONARY DISEASE, U 01/18/2017 URBAN JOHNSON APRN Ot K56.41 FECAL IMPACTION 01/18/2017 URBAN JOHNSON APRN Ot K59.00 CONSTIPATION, UNSPECIFIED 01/18/2017 URBAN JOHNSON APRN Ot M79.7 FIBROMYALGIA 01/18/2017 URBAN JOHNSON APRN Ot N18.6 END STAGE RENAL DISEASE 01/18/2017 URBAN JOHNSON APRN Ot Z79.02 HALF-WAY (CURRENT) USE OF ANTITHROMBOTI 01/18/2017 URBAN JOHNSON APRN Ot Z79.4 HALF-WAY (CURRENT) USE OF INSULIN 01/18/2017 URBAN JOHNSON APRN Ot Z79.82 HALF-WAY (CURRENT) USE OF ASPIRIN 01/18/2017 URBAN JOHNSON APRN Ot Z79.899 OTHER RADIOLOGICAL HEALTH SPECIALIST (CURRENT) DRUG THERAPY 01/18/2017 URBAN JOHNSON APRN Ot Z95.5 PRESENCE OF CORONARY ANGIOPLASTY IMPLANT 01/18/2017 URBAN JOHNSON APRN Ot Z99.2 DEPENDENCE ON RENAL DIALYSIS 01/19/2017 URBAN JOHNSON APRN Ot E11.9 TYPE 2 DIABETES MELLITUS WITHOUT COMPLIC 01/19/2017 URBAN JOHNSON APRN Ot I12.0 HYP CHR KIDNEY DISEASE W STAGE 5 CHR KID 01/19/2017 URBAN JOHNSON APRN Ot J44.9 CHRONIC OBSTRUCTIVE PULMONARY DISEASE, U 01/19/2017 URBAN JOHNSON APRN Ot K56.41 FECAL IMPACTION 01/19/2017 URBAN JOHNSON APRN Ot K59.00 CONSTIPATION, UNSPECIFIED 01/19/2017 URBAN JOHNSON PERSONNEL TRAINING OFFICER Ot M79.7 FIBROMYALGIA 01/19/2017 URBAN JOHNSON PERSONNEL TRAINING OFFICER Ot N18.6 END STAGE RENAL DISEASE 01/19/2017 URBAN JOHNSON PERSONNEL TRAINING OFFICER Ot Z79.02 RADIOLOGICAL HEALTH SPECIALIST (CURRENT) USE OF ANTITHROMBOTI 01/19/2017 URBAN JOHNSON APRN Ot Z79.4 HALF-WAY (CURRENT) USE OF INSULIN 01/19/2017 URBAN JOHNSON APRN Ot Z79.82 RADIOLOGICAL HEALTH SPECIALIST (CURRENT) USE OF ASPIRIN 01/19/2017 URBAN JOHNSON APRN Ot Z79.899 OTHER RADIOLOGICAL HEALTH SPECIALIST (CURRENT) DRUG THERAPY 01/19/2017 URBAN JOHNSON APRN Ot Z95.5 PRESENCE OF CORONARY ANGIOPLASTY IMPLANT 01/19/2017 URBAN JOHNSON APRN Ot Z99.2 DEPENDENCE ON RENAL DIALYSIS 01/19/2017 URBAN JOHNSON APRN Ot E11.9 TYPE 2 DIABETES MELLITUS WITHOUT COMPLIC 01/19/2017 URBAN JOHNSON APRN Ot I12.0 HYP CHR KIDNEY DISEASE W STAGE 5 CHR KID 01/19/2017 URBAN JOHNSON APRN Ot J44.9 CHRONIC OBSTRUCTIVE PULMONARY DISEASE, U 01/19/2017 URBAN JOHNSON APRN Ot K56.41 FECAL IMPACTION 01/19/2017 URBAN JOHNSON APRN Ot K59.00 CONSTIPATION, UNSPECIFIED 01/19/2017 URBAN JOHNSON APRN Ot M79.7 FIBROMYALGIA 01/19/2017 URBAN JOHNSON APRN Ot N18.6 END STAGE RENAL DISEASE 01/19/2017 URBAN JOHNSON APRN Ot Z79.02 RADIOLOGICAL HEALTH SPECIALIST (CURRENT) USE OF ANTITHROMBOTI 01/19/2017 URBAN JOHNSON APRN Ot Z79.4 RADIOLOGICAL HEALTH SPECIALIST (CURRENT) USE OF INSULIN 01/19/2017 URBAN JOHNSON APRN Ot Z79.82 HALF-WAY (CURRENT) USE OF ASPIRIN 01/19/2017 URBAN JOHNSON PERSONNEL TRAINING OFFICER Ot Z79.899 OTHER RADIOLOGICAL HEALTH SPECIALIST (CURRENT) DRUG THERAPY 01/19/2017 URBAN JOHNSON APRN Ot Z95.5 PRESENCE OF CORONARY ANGIOPLASTY IMPLANT 01/19/2017 URBAN JOHNSON PERSONNEL TRAINING OFFICER Ot Z99.2 DEPENDENCE ON RENAL DIALYSIS 01/24/2017 URBAN JOHNSON APRN Ot E11.9 TYPE 2 DIABETES MELLITUS WITHOUT COMPLIC 01/24/2017 URBAN JOHNSON APRN Ot I12.0 HYP CHR KIDNEY DISEASE W STAGE 5 CHR KID 01/24/2017 URBAN JOHNSON APRN Ot J44.9 CHRONIC OBSTRUCTIVE PULMONARY DISEASE, U 01/24/2017 URBAN JOHNSON APRN Ot K56.41 FECAL IMPACTION 01/24/2017 URBAN JOHNSON APRN Ot K59.00 CONSTIPATION, UNSPECIFIED 01/24/2017 URBAN JOHNSON APRN Ot M79.7 FIBROMYALGIA 01/24/2017 URBAN JOHNSON APRN Ot N18.6 END STAGE RENAL DISEASE 01/24/2017 URBAN JOHNSON APRN Ot Z79.02 HALF-WAY (CURRENT) USE OF ANTITHROMBOTI 01/24/2017 URBAN JOHNSON APRN Ot Z79.4 HALF-WAY (CURRENT) USE OF INSULIN 01/24/2017 URBAN JOHNSON APRN Ot Z79.82 HALF-WAY (CURRENT) USE OF ASPIRIN 01/24/2017 URBAN JOHNSON APRN Ot Z79.899 OTHER RADIOLOGICAL HEALTH SPECIALIST (CURRENT) DRUG THERAPY 01/24/2017 URBAN JOHNSON APRN Ot Z95.5 PRESENCE OF CORONARY ANGIOPLASTY IMPLANT 01/24/2017 URBAN JOHNSON APRN Ot Z99.2 DEPENDENCE ON RENAL DIALYSIS 01/29/2017 TREVOR TURCIOS MD Ot E11.9 TYPE 2 DIABETES MELLITUS WITHOUT COMPLIC 01/29/2017 TREVOR TURCIOS MD Ot I12.0 HYP CHR KIDNEY DISEASE W STAGE 5 CHR KID 01/29/2017 TREVOR TURCIOS MD Ot I25.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 [place] COR ART W 01/29/2017 TREVOR TURCIOS MD Ot I51.7 CARDIOMEGALY 01/29/2017 TREVOR TURCIOS MD Ot J44.9 CHRONIC OBSTRUCTIVE PULMONARY DISEASE, U 01/29/2017 TREVOR TURCIOS MD Ot N18.6 END STAGE RENAL DISEASE 01/29/2017 TREVOR TURCIOS MD Ot R07.9 CHEST PAIN, UNSPECIFIED 01/29/2017 TREVOR TURCIOS MD Ot Z79.02 RADIOLOGICAL HEALTH SPECIALIST (CURRENT) USE OF ANTITHROMBOTI 01/29/2017 TREVOR TURCIOS MD Ot Z79.4 HALF-WAY (CURRENT) USE OF INSULIN 01/29/2017 TREVOR TURCIOS MD Ot Z79.82 RADIOLOGICAL HEALTH SPECIALIST (CURRENT) USE OF ASPIRIN 01/29/2017 TREVOR TURCIOS MD Ot Z79.899 OTHER HALF-WAY (CURRENT) DRUG THERAPY 01/29/2017 TREVOR TURCIOS MD Ot Z95.5 PRESENCE OF CORONARY ANGIOPLASTY IMPLANT 01/29/2017 TREVOR TURCIOS MD Ot Z99.2 DEPENDENCE ON RENAL DIALYSIS 02/15/2017 URBAN JOHNSON APRN Ot E11.9 TYPE 2 DIABETES MELLITUS WITHOUT COMPLIC 02/15/2017 URBAN JOHNSON APRN Ot I12.0 HYP CHR KIDNEY DISEASE W STAGE 5 CHR KID 02/15/2017 URBAN JOHNSON APRN Ot J44.9 CHRONIC OBSTRUCTIVE PULMONARY DISEASE, U 02/15/2017 URBAN JOHNSON APRN Ot K56.41 FECAL IMPACTION 02/15/2017 URBAN JOHNSON APRN Ot K59.00 CONSTIPATION, UNSPECIFIED 02/15/2017 URBAN JOHNSON APRN Ot M79.7 FIBROMYALGIA 02/15/2017 URBAN JOHNSON APRN Ot N18.6 END STAGE RENAL DISEASE 02/15/2017 URBAN JOHNSON APRN Ot Z79.02 RADIOLOGICAL HEALTH SPECIALIST (CURRENT) USE OF ANTITHROMBOTI 02/15/2017 URBAN JOHNSON APRN Ot Z79.4 HALF-WAY (CURRENT) USE OF INSULIN 02/15/2017 URBAN JOHNSON APRN Ot Z79.82 HALF-WAY (CURRENT) USE OF ASPIRIN 02/15/2017 URBAN JOHNSON APRN Ot Z79.899 OTHER HALF-WAY (CURRENT) DRUG THERAPY 02/15/2017 URBAN JOHNSON APRN Ot Z95.5 PRESENCE OF CORONARY ANGIOPLASTY IMPLANT 02/15/2017 URBAN JOHNSON APRN Ot Z99.2 DEPENDENCE ON RENAL DIALYSIS 02/19/2017 Ot 414.00 CORON ATHEROSCLER NOS TYPE VESSEL, NATIV 02/19/2017 ISABEL HUMPHREYS MD Ot 300.00 ANXIETY STATE NOS 02/19/2017 ISABEL HUMPHREYS MD Ot 311 DEPRESSIVE DISORDER NEC 02/19/2017 MARIBELL MARAVILLA BUS DRIVER/MONITOR Ot 790.6 ABN BLOOD CHEMISTRY NEC 02/19/2017 ISABEL HUMPHREYS MD Ot 285.9 ANEMIA NOS 02/19/2017 ISABEL HUMPHREYS MD R Ot 460 ACUTE NASOPHARYNGITIS 02/19/2017 MARIBELL MARAVILLA BUS DRIVER/MONITOR Ot 272.4 HYPERLIPIDEMIA NEC/NOS 02/19/2017 MARIBELL MARAVILLA BUS DRIVER/MONITOR Ot 401.9 HYPERTENSION NOS 02/19/2017 MARIBELL MARAVILLA BUS DRIVER/MONITOR Ot 414.00 CORON ATHEROSCLER NOS TYPE VESSEL, NATIV 02/19/2017 ISABEL HUMPHREYS MD R Ot 348.89 OTHER CONDITIONS OF BRAIN 02/19/2017 ISABEL HUMPHREYS MD R Ot 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 02/19/2017 ISABEL HUMPHREYS MD R Ot 780.97 ALTERED MENTAL STATUS 02/19/2017 ISABEL HUMPHREYS MD R Ot 782.0 SKIN SENSATION DISTURB 02/19/2017 JONI HUMPHREYS MDYD R Ot V76.12 OTH SCREEN MAMMO-MALIGN NEOPLASM OF [place] 02/19/2017 Ot 250.01 DIAB AMBAR WO COMPL, TYPE I [JUVENILE TYP 02/19/2017 DAVE MARSH FACC, ALI FACP CCDS Ot D63.1 ANEMIA IN CHRONIC KIDNEY DISEASE 02/19/2017 DAVE MARSH FACC, ALI FACP CCDS Ot E11.9 TYPE 2 DIABETES MELLITUS WITHOUT COMPLIC 02/19/2017 DAVE MARSH FACC, ALI FACP CCDS Ot E66.8 OTHER OBESITY 02/19/2017 DAVE MARSH FACC, ALI FACP CCDS Ot I10 ESSENTIAL (PRIMARY) HYPERTENSION 02/19/2017 DAVE MARSH FACC, ALI FACP CCDS Ot I25.10 ATHSCL HEART DISEASE OF [place] CORONARY 02/19/2017 DAVE MARSH FACC, ALI FACP CCDS Ot J43.8 OTHER EMPHYSEMA 02/19/2017 DULCE WILL MD Ot E11.9 TYPE 2 DIABETES MELLITUS WITHOUT COMPLIC 02/19/2017 DULCE WILL MD Ot E66.9 OBESITY, UNSPECIFIED 02/19/2017 DULCE WILL MD Ot I12.9 HYPERTENSIVE CHRONIC KIDNEY DISEASE W ST 02/19/2017 NICOLETTE MARSH DULCE Ot I25.10 ATHSCL HEART DISEASE OF [place] CORONARY 02/19/2017 DULCE WILL MD Ot J44.9 CHRONIC OBSTRUCTIVE PULMONARY DISEASE, U 02/19/2017 DULCE WILL MD Ot N18.3 CHRONIC KIDNEY DISEASE, STAGE 3 (MODERAT 02/19/2017 NICOLETTE MARSH, DULCE Ot 403.90 HYPTNSV CHR KID DIS, UNSPEC, W CHR KD ST 02/19/2017 NICOLETTE MARSH, DULCE Ot 585.3 CHRONIC KIDNEY DISEASE, STAGE III (MODER 02/19/2017 DAVE MARSH FACC, ALI FACP CCDS Ot E11.21 TYPE 2 DIABETES MELLITUS WITH DIABETIC N 02/19/2017 DAVE CHAVEZC, ALI FACP CCDS Ot I25.10 ATHSCL HEART DISEASE OF [place] CORONARY 02/19/2017 DAVE MARSH FACC, ALI FACP CCDS Ot I65.23 OCCLUSION AND STENOSIS OF BILATERAL [place] 02/19/2017 DAVE MARSH FACC, ALI FACP CCDS Ot I73.9 PERIPHERAL VASCULAR DISEASE, UNSPECIFIED 02/19/2017 DAVE MARSH FACC, ALI FACP CCDS Ot J44.9 CHRONIC OBSTRUCTIVE PULMONARY DISEASE, U 02/19/2017 DAVE MARSH FACC, ALI FACP CCDS Ot N18.9 CHRONIC KIDNEY DISEASE, UNSPECIFIED 02/19/2017 DAVE MARSH FACC, ALI FACP CCDS Ot R00.2 PALPITATIONS 02/19/2017 DAVE MARSH FACC, ALI FACP CCDS Ot D63.1 ANEMIA IN CHRONIC KIDNEY DISEASE 02/19/2017 DAVE MARSH FACC, ALI FACP CCDS Ot E11.9 TYPE 2 DIABETES MELLITUS WITHOUT COMPLIC 02/19/2017 DAVE CHAVEZC, ALI FACP CCDS Ot I25.10 ATHSCL HEART DISEASE OF [place] CORONARY 02/19/2017 DAVE MARSH FACC, ALI FACP CCDS Ot I65.23 OCCLUSION AND STENOSIS OF [place]IL[place]AL [place] 02/19/2017 DAVE MARSH FACC, ALI FACP CCDS Ot I73.9 PERIPHERAL VASCULAR DISEASE, UNSPECIFIED 02/19/2017 DAVE MARSH FACC, ALI FACP CCDS Ot J43.8 OTHER EMPHYSEMA 02/19/2017 DAVE CHAVEZC, ALI FACP CCDS Ot R00.2 PALPITATIONS 02/19/2017 KARI EDEN APRN Ot G47.33 OBSTRUCTIVE SLEEP APNEA (ADULT) ( PEDIATR 02/19/2017 KARI EDEN APRN Ot R06.00 DYSPNEA, UNSPECIFIED 02/19/2017 JULIANN MARSH, ISABEL R Ot E11.9 TYPE 2 DIABETES MELLITUS WITHOUT COMPLIC 02/19/2017 JULIANN MARSH, ISABEL R Ot I10 ESSENTIAL (PRIMARY) HYPERTENSION 02/19/2017 NICOLETTE MARSH, DULCE Ot I12.9 HYPERTENSIVE CHRONIC KIDNEY DISEASE W ST 02/19/2017 NICOLETTE MARSH, DULCE Ot N18.3 CHRONIC KIDNEY DISEASE, STAGE 3 (MODERAT 02/19/2017 NICOLETTE MARSH, DULCE Ot 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 O 02/19/2017 DULCE WILL MD Ot N18.3 CHRONIC KIDNEY DISEASE, STAGE 3 (MODERAT 02/19/2017 NICOLETTE MARSH, DULCE Ot R31.9 HEMATURIA, UNSPECIFIED 02/19/2017 FRANCESCA MARSH, REJI Ot N18.6 END STAGE RENAL DISEASE 02/19/2017 FRANCESCA MARHS, REJI Ot Z01.89 ENCOUNTER FOR OTHER SPECIFIED SPECIAL EX 02/19/2017 FRANCESCA MARSH, REJI Ot Z99.2 DEPENDENCE ON RENAL DIALYSIS 02/19/2017 BIBI MARSH, ANTONIO Ot H25.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, LEFT EYE Procedures Code Description Performed By Performed On 47.01 LAPAROSCOP APPENDECTOMY 08/02/2009 71.09 INCIS VULVA/PERINEUM NEC 07/23/2011 98.28 REMOVAL FB FROM FOOT 08/19/2013 86.04 OTHER SKIN SUBQ I D 08/22/2013 45.16 ESOPHAGOGASTRODUODENOSCOPY [EGD] W/CLOSE 02/07/2014 45.23 COLONOSCOPY 02/07 74286 PSYCH DIAGNOSTIC EVALUATION 03/15/2014 50959 PSYTX PT&/FAMILY 45 MINUTES 04/26/2014 88782 PSYTX PT&/FAMILY 60 MINUTES 05/11/2014 76135 PSYTX PT&/FAMILY 45 MINUTES 05/15/2014 49940 PSYTX PT&/FAMILY 45 MINUTES 05/15/2014 56647 PSYTX PT&/FAMILY 45 MINUTES 06/12/2014 57225 PSYTX PT&/FAMILY 45 MINUTES 06/12/2014 15685 PSYTX PT&/FAMILY 45 MINUTES 06/26/2014 93719 PSYTX PT&/FAMILY 45 MINUTES 07/10/2014 72879 PSYTX PT&/FAMILY 45 MINUTES 08/07/2014 98962 PSYTX PT&/FAMILY 45 MINUTES 09/18/2014 00.41 PROCEDURE ON TWO VESSELS 11/01/2014 00.46 INSERTION OF TWO VASCULAR STENTS 11/01/2014 00.66 PERCUTANEOUS TRANSLUMINAL CORONARY ANGIO 11/01/2014 36.06 CORONARY ARTERY STENT INSERTION NON-DRUG 11/01/2014 36.07 INSRT OF DRUG-ELUTING CORON ARTERY STENT 11/01/2014 37.22 LEFT HEART CARDIAC CATH 11/01/2014 88.56 CORONAR ARTERIOGR-2 CATH 11/01/2014 69579 PSYTX PT&/FAMILY 45 MINUTES 11/28/2014 72961 PSYTX PT&/FAMILY 45 MINUTES 01/01/2015 [id number] DILATION OF CORONARY ARTERY, ONE SITE, P 01/14/2016 [id number] MEASURE OF CARDIAC SAMPL PRESSURE, L H 01/14/2016 [id number] FLUOROSCOPY OF MULT COR ART USING L OSM 01/14/2016 Results Test Result Range Complete blood count (CBC) with automated white blood cell (WBC) differential - 05/20/16 17:51 Blood leukocytes automated count (number/volume) 4.0 10*3/ uL 4.3-11.0 Blood erythrocytes automated count (number/volume) 3.35 10*6 /uL 4.35-5.85 Venous blood hemoglobin measurement (mass/volume) 10.6 g/dL 11.5-16.0 Blood hematocrit (volume fraction) 32 % 35-52 Automated erythrocyte mean corpuscular volume 95 [foz_us] 80-99 Automated erythrocyte mean corpuscular hemoglobin (mass per erythrocyte) 32 pg 25-34 Automated erythrocyte mean corpuscular hemoglobin concentration measurement ( mass/volume) 33 g/dL 32-36 Automated erythrocyte distribution width ratio 14.2 % 10.0-14.5 Automated blood platelet count (count/volume) 127 10*3/uL 130-400 Automated blood platelet mean volume measurement 10.0 [foz_ us] 7.4-10.4 Automated blood neutrophils/100 leukocytes 64 % 42-75 Automated blood lymphocytes/100 leukocytes 15 % 12-44 Blood monocytes/100 leukocytes 14 % 0-12 Automated blood eosinophils/100 leukocytes 6 % 0-10 Automated blood basophils/100 leukocytes 1 % 0-10 Blood neutrophils automated count (number/volume) 2.6 10*3 1.8-7.8 Blood lymphocytes automated count (number/volume) 0.6 10*3 1.0-4.0 Blood monocytes automated count (number/volume) 0.6 10*3 0.0-1.0 Automated eosinophil count 0.3 10*3/uL 0.0-0.3 Automated blood basophil count (count/volume) 0.0 10*3/uL 0.0-0.1 Comprehensive metabolic panel - 05/20/16 17:51 Serum or plasma sodium measurement (moles/volume) 140 mmol/ L 135-145 Serum or plasma potassium measurement (moles/volume) 3.4 mmol/L 3.6-5.0 Serum or plasma chloride measurement (moles/volume) 100 mmol /L 98-107 Carbon dioxide 30 mmol/L 21-32 Serum or plasma anion gap determination (moles/volume) 10 mmol/L 5-14 Serum or plasma urea nitrogen measurement (mass/volume) 10 mg/dL 7-18 Serum or plasma creatinine measurement (mass/volume) 1.46 mg /dL 0.60-1.30 Serum or plasma urea nitrogen/creatinine mass ratio 7 NRG Serum or plasma creatinine measurement with calculation of estimated glomerular filtration rate 36 NRG Serum or plasma glucose measurement (mass/volume) 171 mg/dL 70-105 Serum or plasma calcium measurement (mass/volume) 8.2 mg/dL 8.5-10.1 Serum or plasma total bilirubin measurement (mass/volume) 0.4 mg/dL 0.1-1.0 Serum or plasma alkaline phosphatase measurement (enzymatic activity/volume) 134 U/L 40-136 Serum or plasma aspartate aminotransferase measurement (enzymatic activity/ volume) 20 U/L 5-34 Serum or plasma alanine aminotransferase measurement (enzymatic activity/volume ) 12 U/L 0-55 Serum or plasma protein measurement (mass/volume) 6.5 g/dL 6.4-8.2 Serum or plasma albumin measurement (mass/volume) 3.2 g/dL 3.2-4.5 Magnesium - 05/20/16 17:51 Magnesium 1.7 mg/dL 1.8-2.4 Serum or plasma creatine kinase measurement (enzymatic activity/volume) - 05/20 17:51 Serum or plasma creatine kinase measurement (enzymatic activity/volume) 77 U/L 29-168 Serum or plasma creatine kinase MB measurement (enzymatic activity/volume) - 17:51 Serum or plasma creatine kinase MB measurement (enzymatic activity/volume) 2.5 ng/mL <6.6 Serum or plasma troponin i.cardiac measurement (mass/volume) - 05/20/16 17:51 Serum or plasma troponin i.cardiac measurement (mass/volume) < ng/mL <0.30 PT panel in platelet poor plasma by coagulation assay - 05/20/16 17:51 Prothrombin time (PT) in platelet poor plasma by coagulation assay 13.6 s 12.2-14.7 INR in platelet poor plasma or blood by coagulation assay 1.1 0.8-1.4 Activated partial thromboplastin time (aPTT) in platelet poor plasma bycoagulation assay - 05/20/16 17:51 Activated partial thromboplastin time (aPTT) in platelet poor plasma bycoagulation assay 43 s 24-35 Serum or plasma amylase measurement (enzymatic activity/volume) - 05/20/16 17: 51 Serum or plasma amylase measurement (enzymatic activity/volume) 45 U/L 25-125 Lipase - 05/20/16 17:51 Lipase 98 U/L 8-78 Serum or plasma lithium measurement (moles/volume) - 05/20/16 17:51 BNP level 238.3 pg/mL <100.0 Automated blood complete blood count (hemogram) panel - 07/23/16 09:20 Blood leukocytes automated count (number/volume) 4.2 10*3/ uL 4.3-11.0 Blood erythrocytes automated count (number/volume) 3.85 10*6 /uL 4.35-5.85 Venous blood hemoglobin measurement (mass/volume) 12.4 g/dL 11.5-16.0 Blood hematocrit (volume fraction) 37 % 35-52 Automated erythrocyte mean corpuscular volume 97 [foz_us] 80-99 Automated erythrocyte mean corpuscular hemoglobin (mass per erythrocyte) 32 pg 25-34 Automated erythrocyte mean corpuscular hemoglobin concentration measurement ( mass/volume) 33 g/dL 32-36 Automated erythrocyte distribution width ratio 13.9 % 10.0-14.5 Automated blood platelet count (count/volume) 110 10*3/uL 130-400 Automated blood platelet mean volume measurement 11.0 [foz_ us] 7.4-10.4 GLUCOSE (POC) - 08/11/16 10:12 GLUCOSE (POC) 173 mg/dL 70-99 HEMOGLOBIN - 08/11/16 10:14 MEAN CELL VOLUME 97.7 fl 80.0-100.0 HEMOGLOBIN 10.8 gm/dL 12.0-16.0 METABOLIC PANEL, BASIC - 08/11/16 10:14 POTASSIUM 3.2 mmol/L 3.5-5.3 EST GFR (MDRD) 19 mL/min > 59 ANION GAP 9 mmol/L 5-15 GLUCOSE 194 mg/dL 70-99 CALCIUM 8.3 mg/dL 8.5-10.1 BLOOD UREA NITROGEN 23 mg/dL 7-20 CREATININE 2.5 mg/dL 0.6-1.0 SODIUM 144 mmol/L 135-148 CHLORIDE 104 mmol/L 98-110 CARBON DIOXIDE 31 mmol/L 21-32 MRSA SURVEILLANCE SCREEN - 08/11/16 10:14 Microbiology GLUCOSE (POC) - 08/11/16 13:41 GLUCOSE (POC) 163 mg/dL 70-99 Complete blood count (CBC) with automated white blood cell (WBC) differential - 08/13/16 21:35 Blood leukocytes automated count (number/volume) 4.8 10*3/ uL 4.3-11.0 Blood erythrocytes automated count (number/volume) 3.16 10*6 /uL 4.35-5.85 Venous blood hemoglobin measurement (mass/volume) 10.2 g/dL 11.5-16.0 Blood hematocrit (volume fraction) 31 % 35-52 Automated erythrocyte mean corpuscular volume 98 [foz_us] 80-99 Automated erythrocyte mean corpuscular hemoglobin (mass per erythrocyte) 32 pg 25-34 Automated erythrocyte mean corpuscular hemoglobin concentration measurement ( mass/volume) 33 g/dL 32-36 Automated erythrocyte distribution width ratio 14.2 % 10.0-14.5 Automated blood platelet count (count/volume) 91 10*3/uL 130-400 Automated blood platelet mean volume measurement 10.4 [foz_ us] 7.4-10.4 Automated blood neutrophils/100 leukocytes 69 % 42-75 Automated blood lymphocytes/100 leukocytes 14 % 12-44 Blood monocytes/100 leukocytes 10 % 0-12 Automated blood eosinophils/100 leukocytes 6 % 0-10 Automated blood basophils/100 leukocytes 0 % 0-10 Blood neutrophils automated count (number/volume) 3.3 10*3 1.8-7.8 Blood lymphocytes automated count (number/volume) 0.7 10*3 1.0-4.0 Blood monocytes automated count (number/volume) 0.5 10*3 0.0-1.0 Automated eosinophil count 0.3 10*3/uL 0.0-0.3 Automated blood basophil count (count/volume) 0.0 10*3/uL 0.0-0.1 PT panel in platelet poor plasma by coagulation assay - 08/13/16 21:35 Prothrombin time (PT) in platelet poor plasma by coagulation assay 14.4 s 12.2-14.7 INR in platelet poor plasma or blood by coagulation assay 1.2 0.8-1.4 Activated partial thromboplastin time (aPTT) in platelet poor plasma bycoagulation assay - 08/13/16 21:35 Activated partial thromboplastin time (aPTT) in platelet poor plasma bycoagulation assay 77 s 24-35 Comprehensive metabolic panel - 08/13/16 21:35 Serum or plasma sodium measurement (moles/volume) 139 mmol/ L 135-145 Serum or plasma potassium measurement (moles/volume) 3.2 mmol/L 3.6-5.0 Serum or plasma chloride measurement (moles/volume) 100 mmol /L 98-107 Carbon dioxide 27 mmol/L 21-32 Serum or plasma anion gap determination (moles/volume) 12 mmol/L 5-14 Serum or plasma urea nitrogen measurement (mass/volume) 17 mg/dL 7-18 Serum or plasma creatinine measurement (mass/volume) 2.27 mg /dL 0.60-1.30 Serum or plasma urea nitrogen/creatinine mass ratio 7 NRG Serum or plasma creatinine measurement with calculation of estimated glomerular filtration rate 22 NRG Serum or plasma glucose measurement (mass/volume) 290 mg/dL 70-105 Serum or plasma calcium measurement (mass/volume) 8.1 mg/dL 8.5-10.1 Serum or plasma total bilirubin measurement (mass/volume) 0.4 mg/dL 0.1-1.0 Serum or plasma alkaline phosphatase measurement (enzymatic activity/volume) 153 U/L 40-136 Serum or plasma aspartate aminotransferase measurement (enzymatic activity/ volume) 11 U/L 5-34 Serum or plasma alanine aminotransferase measurement (enzymatic activity/volume ) < U/L 0-55 Serum or plasma protein measurement (mass/volume) 6.3 g/dL 6.4-8.2 Serum or plasma albumin measurement (mass/volume) 3.3 g/dL 3.2-4.5 Magnesium - 08/13/16 21:35 Magnesium 1.6 mg/dL 1.8-2.4 Serum or plasma C reactive protein measurement (mass/volume) - 08/13/16 21:35 Serum or plasma C reactive protein measurement (mass/volume) 0.86 mg/dL 0.00-0.50 Serum or plasma lithium measurement (moles/volume) - 08/13/16 21:35 BNP level 457.4 pg/mL <100.0 Serum or plasma troponin i.cardiac measurement (mass/volume) - 08/13/16 21:35 Serum or plasma troponin i.cardiac measurement (mass/volume) < ng/mL <0.30 Myoglobin, serum - 08/13/16 21:35 Myoglobin, serum 165.1 ng/mL 10.0-92.0 THYROID STIMULATING HORMONE - 08/13/16 21:35 THYROID STIMULATING HORMONE 2.08 u[iU]/mL 0.35-4.94 Serum or plasma thyroxine (T4) free measurement (mass/volume) - 08/13/16 21:35 Serum or plasma thyroxine (T4) free measurement (mass/volume) 1.28 ng/dL 0.70-1.48 Complete blood count (CBC) with automated white blood cell (WBC) differential - 08/24/16 16:53 Blood leukocytes automated count (number/volume) 6.0 10*3/ uL 4.3-11.0 Blood erythrocytes automated count (number/volume) 3.28 10*6 /uL 4.35-5.85 Venous blood hemoglobin measurement (mass/volume) 10.5 g/dL 11.5-16.0 Blood hematocrit (volume fraction) 32 % 35-52 Automated erythrocyte mean corpuscular volume 97 [foz_us] 80-99 Automated erythrocyte mean corpuscular hemoglobin (mass per erythrocyte) 32 pg 25-34 Automated erythrocyte mean corpuscular hemoglobin concentration measurement ( mass/volume) 33 g/dL 32-36 Automated erythrocyte distribution width ratio 13.7 % 10.0-14.5 Automated blood platelet count (count/volume) 166 10*3/uL 130-400 Automated blood platelet mean volume measurement 9.6 [foz_us ] 7.4-10.4 Automated blood neutrophils/100 leukocytes 75 % 42-75 Automated blood lymphocytes/100 leukocytes 10 % 12-44 Blood monocytes/100 leukocytes 12 % 0-12 Automated blood eosinophils/100 leukocytes 2 % 0-10 Automated blood basophils/100 leukocytes 0 % 0-10 Blood neutrophils automated count (number/volume) 4.5 10*3 1.8-7.8 Blood lymphocytes automated count (number/volume) 0.6 10*3 1.0-4.0 Blood monocytes automated count (number/volume) 0.7 10*3 0.0-1.0 Automated eosinophil count 0.1 10*3/uL 0.0-0.3 Automated blood basophil count (count/volume) 0.0 10*3/uL 0.0-0.1 Comprehensive metabolic panel - 08/24/16 16:53 Serum or plasma sodium measurement (moles/volume) 136 mmol/ L 135-145 Serum or plasma potassium measurement (moles/volume) 4.3 mmol/L 3.6-5.0 Serum or plasma chloride measurement (moles/volume) 103 mmol /L 98-107 Carbon dioxide 25 mmol/L 21-32 Serum or plasma anion gap determination (moles/volume) 8 mmol/L 5-14 Serum or plasma urea nitrogen measurement (mass/volume) 38 mg/dL 7-18 Serum or plasma creatinine measurement (mass/volume) 2.54 mg /dL 0.60-1.30 Serum or plasma urea nitrogen/creatinine mass ratio 15 NRG Serum or plasma creatinine measurement with calculation of estimated glomerular filtration rate 19 NRG Serum or plasma glucose measurement (mass/volume) 219 mg/dL 70-105 Serum or plasma calcium measurement (mass/volume) 8.6 mg/dL 8.5-10.1 Serum or plasma total bilirubin measurement (mass/volume) 0.5 mg/dL 0.1-1.0 Serum or plasma alkaline phosphatase measurement (enzymatic activity/volume) 140 U/L 40-136 Serum or plasma aspartate aminotransferase measurement (enzymatic activity/ volume) 14 U/L 5-34 Serum or plasma alanine aminotransferase measurement (enzymatic activity/volume ) < U/L 0-55 Serum or plasma protein measurement (mass/volume) 6.5 g/dL 6.4-8.2 Serum or plasma albumin measurement (mass/volume) 3.5 g/dL 3.2-4.5 Lipase - 08/24/16 16:53 Lipase 24 U/L 8-78 Complete urinalysis with reflex to culture - 08/24/16 18:13 Urine color determination YELLOW NRG Urine clarity determination SLIGHTLY CLOUDY NRG Urine pH measurement by test strip 6 5- 9 Specific gravity of urine by test strip 1.010 1.016-1.022 Urine protein assay by test strip, semi-quantitative 3+ NEGATIVE Urine glucose detection by automated test strip 2+ NEGATIVE Erythrocytes detection in urine sediment by light microscopy 4+ NEGATIVE Urine ketones detection by automated test strip NEGATIVE NEGATIVE Urine nitrite detection by test strip NEGATIVE NEGATIVE Urine total bilirubin detection by test strip NEGATIVE NEGATIVE Urine urobilinogen measurement by automated test strip (mass/volume) NORMAL NORMAL Urine leukocyte esterase detection by dipstick 3+ NEGATIVE Automated urine sediment erythrocyte count by microscopy (number/high power field) [HPF] NRG Automated urine sediment leukocyte count by microscopy (number/high power field ) [HPF] NRG Bacteria detection in urine sediment by light microscopy MODERATE NRG Squamous epithelial cells detection in urine sediment by light microscopy 2-5 NRG Crystals detection in urine sediment by light microscopy NONE NRG Casts detection in urine sediment by light microscopy NONE NRG Mucus detection in urine sediment by light microscopy NEGATIVE NRG Complete urinalysis with reflex to culture YES NRG Bacterial urine culture - 08/24/16 18:13 Bacterial urine culture [id number] NRG COLONY COUNT >100,000/ML NRG FTX;REPORTABLE SENSITIVITY REPORTED 08/26/16 9:15 NRG Bacterial susceptibility panel - 08/24/16 18:13 Gentamicin susceptibility test by minimum inhibitory concentration <= NRG Trimethoprim/sulfamethoxazole susceptibility test by minimum inhibitoryconcentration >= NRG Ampicillin susceptibility test by minimum inhibitory concentration >= NRG Tobramycin susceptibility test by minimum inhibitory concentration <= NRG Cefazolin susceptibility test by minimum inhibitory concentration >= NRG Ceftriaxone susceptibility test by minimum inhibitory concentration R NRG Ampicillin/sulbactam susceptibility test by minimum inhibitory concentration >= NRG Ciprofloxacin susceptibility test by minimum inhibitory concentration >= NRG Meropenem susceptibility test by minimum inhibitory concentration <= NRG Nitrofurantoin susceptibility test by minimum inhibitory concentration <= NRG Aztreonam susceptibility test by minimum inhibitory concentration R NRG Extended spectrum beta lactamase (ESBL) producing bacteria susceptibility test by minimum inhibitory concentration + NRG Complete blood count (CBC) with automated white blood cell (WBC) differential - 09/23/16 20:13 Blood leukocytes automated count (number/volume) 5.6 10*3/ uL 4.3-11.0 Blood erythrocytes automated count (number/volume) 3.54 10*6 /uL 4.35-5.85 Venous blood hemoglobin measurement (mass/volume) 11.5 g/dL 11.5-16.0 Blood hematocrit (volume fraction) 35 % 35-52 Automated erythrocyte mean corpuscular volume 99 [foz_us] 80-99 Automated erythrocyte mean corpuscular hemoglobin (mass per erythrocyte) 33 pg 25-34 Automated erythrocyte mean corpuscular hemoglobin concentration measurement ( mass/volume) 33 g/dL 32-36 Automated erythrocyte distribution width ratio 14.3 % 10.0-14.5 Automated blood platelet count (count/volume) 80 10*3/uL 130-400 Automated blood platelet mean volume measurement 11.1 [foz_ us] 7.4-10.4 Automated blood neutrophils/100 leukocytes 80 % 42-75 Automated blood lymphocytes/100 leukocytes 9 % 12-44 Blood monocytes/100 leukocytes 9 % 0-12 Automated blood eosinophils/100 leukocytes 2 % 0-10 Automated blood basophils/100 leukocytes 0 % 0-10 Blood neutrophils automated count (number/volume) 4.5 10*3 1.8-7.8 Blood lymphocytes automated count (number/volume) 0.5 10*3 1.0-4.0 Blood monocytes automated count (number/volume) 0.5 10*3 0.0-1.0 Automated eosinophil count 0.1 10*3/uL 0.0-0.3 Automated blood basophil count (count/volume) 0.0 10*3/uL 0.0-0.1 PT panel in platelet poor plasma by coagulation assay - 09/23/16 20:13 Prothrombin time (PT) in platelet poor plasma by coagulation assay 14.4 s 12.2-14.7 INR in platelet poor plasma or blood by coagulation assay 1.2 0.8-1.4 Activated partial thromboplastin time (aPTT) in platelet poor plasma bycoagulation assay - 09/23/16 20:13 Activated partial thromboplastin time (aPTT) in platelet poor plasma bycoagulation assay 41 s 24-35 Comprehensive metabolic panel - 09/23/16 20:13 Serum or plasma sodium measurement (moles/volume) 138 mmol/ L 135-145 Serum or plasma potassium measurement (moles/volume) 3.3 mmol/L 3.6-5.0 Serum or plasma chloride measurement (moles/volume) 101 mmol /L 98-107 Carbon dioxide 25 mmol/L 21-32 Serum or plasma anion gap determination (moles/volume) 12 mmol/L 5-14 Serum or plasma urea nitrogen measurement (mass/volume) 17 mg/dL 7-18 Serum or plasma creatinine measurement (mass/volume) 2.05 mg /dL 0.60-1.30 Serum or plasma urea nitrogen/creatinine mass ratio 8 NRG Serum or plasma creatinine measurement with calculation of estimated glomerular filtration rate 24 NRG Serum or plasma glucose measurement (mass/volume) 371 mg/dL 70-105 Serum or plasma calcium measurement (mass/volume) 8.0 mg/dL 8.5-10.1 Serum or plasma total bilirubin measurement (mass/volume) 0.5 mg/dL 0.1-1.0 Serum or plasma alkaline phosphatase measurement (enzymatic activity/volume) 109 U/L 40-136 Serum or plasma aspartate aminotransferase measurement (enzymatic activity/ volume) 12 U/L 5-34 Serum or plasma alanine aminotransferase measurement (enzymatic activity/volume ) < U/L 0-55 Serum or plasma protein measurement (mass/volume) 6.2 g/dL 6.4-8.2 Serum or plasma albumin measurement (mass/volume) 3.3 g/dL 3.2-4.5 Serum or plasma creatine kinase measurement (enzymatic activity/volume) - 09/23 20:13 Serum or plasma creatine kinase measurement (enzymatic activity/volume) 67 U/L 29-168 Serum or plasma creatine kinase MB measurement (enzymatic activity/volume) - 20:13 Serum or plasma creatine kinase MB measurement (enzymatic activity/volume) 2.4 ng/mL <6.6 Serum or plasma troponin i.cardiac measurement (mass/volume) - 09/23/16 20:13 Serum or plasma troponin i.cardiac measurement (mass/volume) < ng/mL <0.30 Serum or plasma amylase measurement (enzymatic activity/volume) - 09/23/16 20: 13 Serum or plasma amylase measurement (enzymatic activity/volume) 35 U/L 25-125 Lipase - 09/23/16 20:13 Lipase 87 U/L 8-78 Serum or plasma lithium measurement (moles/volume) - 09/23/16 20:13 BNP level 325.0 pg/mL <100.0 Blood lactic acid measurement (moles/volume) - 09/23/16 20:35 Blood lactic acid measurement (moles/volume) 1.3 mmol/L 0.5-2.0 Influenza virus A and B antigen detection - 09/23/16 20:35 FLU RESULT NEGATIVE FOR INFLUENZA A AND B ANTIGENS BY IA NRG Bacterial blood culture - 09/23/16 20:35 Bacterial blood culture NG NRG Bacterial blood culture - 09/23/16 21:11 Bacterial blood culture NG NRG Capillary blood glucose measurement by glucometer (mass/volume) - 09/23/16 22: 03 Capillary blood glucose measurement by glucometer (mass/volume) 262 mg/dL 70-110 Capillary blood glucose measurement by glucometer (mass/volume) - 09/23/16 23: 05 Capillary blood glucose measurement by glucometer (mass/volume) 187 mg/dL 70-110 Complete blood count (CBC) with automated white blood cell (WBC) differential - 10/10/16 19:50 Blood leukocytes automated count (number/volume) 4.8 10*3/ uL 4.3-11.0 Blood erythrocytes automated count (number/volume) 3.48 10*6 /uL 4.35-5.85 Venous blood hemoglobin measurement (mass/volume) 11.2 g/dL 11.5-16.0 Blood hematocrit (volume fraction) 33 % 35-52 Automated erythrocyte mean corpuscular volume 95 [foz_us] 80-99 Automated erythrocyte mean corpuscular hemoglobin (mass per erythrocyte) 32 pg 25-34 Automated erythrocyte mean corpuscular hemoglobin concentration measurement ( mass/volume) 34 g/dL 32-36 Automated erythrocyte distribution width ratio 12.9 % 10.0-14.5 Automated blood platelet count (count/volume) 102 10*3/uL 130-400 Automated blood platelet mean volume measurement 10.4 [foz_ us] 7.4-10.4 Automated blood neutrophils/100 leukocytes 77 % 42-75 Automated blood lymphocytes/100 leukocytes 9 % 12-44 Blood monocytes/100 leukocytes 10 % 0-12 Automated blood eosinophils/100 leukocytes 3 % 0-10 Automated blood basophils/100 leukocytes 0 % 0-10 Blood neutrophils automated count (number/volume) 3.7 10*3 1.8-7.8 Blood lymphocytes automated count (number/volume) 0.5 10*3 1.0-4.0 Blood monocytes automated count (number/volume) 0.5 10*3 0.0-1.0 Automated eosinophil count 0.2 10*3/uL 0.0-0.3 Automated blood basophil count (count/volume) 0.0 10*3/uL 0.0-0.1 Comprehensive metabolic panel - 10/10/16 19:50 Serum or plasma sodium measurement (moles/volume) 137 mmol/ L 135-145 Serum or plasma potassium measurement (moles/volume) 3.5 mmol/L 3.6-5.0 Serum or plasma chloride measurement (moles/volume) 95 mmol/ L 98-107 Carbon dioxide 30 mmol/L 21-32 Serum or plasma anion gap determination (moles/volume) 12 mmol/L 5-14 Serum or plasma urea nitrogen measurement (mass/volume) 15 mg/dL 7-18 Serum or plasma creatinine measurement (mass/volume) 1.47 mg /dL 0.60-1.30 Serum or plasma urea nitrogen/creatinine mass ratio 10 NRG Serum or plasma creatinine measurement with calculation of estimated glomerular filtration rate 36 NRG Serum or plasma glucose measurement (mass/volume) 371 mg/dL 70-105 Serum or plasma calcium measurement (mass/volume) 8.2 mg/dL 8.5-10.1 Serum or plasma total bilirubin measurement (mass/volume) 0.4 mg/dL 0.1-1.0 Serum or plasma alkaline phosphatase measurement (enzymatic activity/volume) 129 U/L 40-136 Serum or plasma aspartate aminotransferase measurement (enzymatic activity/ volume) 20 U/L 5-34 Serum or plasma alanine aminotransferase measurement (enzymatic activity/volume ) 8 U/L 0-55 Serum or plasma protein measurement (mass/volume) 6.6 g/dL 6.4-8.2 Serum or plasma albumin measurement (mass/volume) 3.6 g/dL 3.2-4.5 Magnesium - 10/10/16 19:50 Magnesium 1.6 mg/dL 1.8-2.4 Serum or plasma troponin i.cardiac measurement (mass/volume) - 10/10/16 19:50 Serum or plasma troponin i.cardiac measurement (mass/volume) < ng/mL <0.30 Myoglobin, serum - 10/10/16 19:50 Myoglobin, serum 198.8 ng/mL 10.0-92.0 Serum or plasma lithium measurement (moles/volume) - 10/10/16 19:50 BNP level 371.4 pg/mL <100.0 PT panel in platelet poor plasma by coagulation assay - 10/10/16 19:50 Prothrombin time (PT) in platelet poor plasma by coagulation assay 13.4 s 12.2-14.7 INR in platelet poor plasma or blood by coagulation assay 1.1 0.8-1.4 Activated partial thromboplastin time (aPTT) in platelet poor plasma bycoagulation assay - 10/10/16 19:50 Activated partial thromboplastin time (aPTT) in platelet poor plasma bycoagulation assay 29 s 24-35 Fibrin D-dimer FEU measurement in platelet poor plasma (mass/volume) - 19:50 Fibrin D-dimer FEU measurement in platelet poor plasma (mass/volume) 1.47 ug/mL 0.00-0.49 Complete blood count (CBC) with automated white blood cell (WBC) differential - 12/18/16 08:35 Blood leukocytes automated count (number/volume) 4.1 10*3/ uL 4.3-11.0 Blood erythrocytes automated count (number/volume) 3.26 10*6 /uL 4.35-5.85 Venous blood hemoglobin measurement (mass/volume) 10.3 g/dL 11.5-16.0 Blood hematocrit (volume fraction) 31 % 35-52 Automated erythrocyte mean corpuscular volume 95 [foz_us] 80-99 Automated erythrocyte mean corpuscular hemoglobin (mass per erythrocyte) 32 pg 25-34 Automated erythrocyte mean corpuscular hemoglobin concentration measurement ( mass/volume) 33 g/dL 32-36 Automated erythrocyte distribution width ratio 13.7 % 10.0-14.5 Automated blood platelet count (count/volume) 96 10*3/uL 130-400 Automated blood platelet mean volume measurement 10.3 [foz_ us] 7.4-10.4 Automated blood neutrophils/100 leukocytes 77 % 42-75 Automated blood lymphocytes/100 leukocytes 13 % 12-44 Blood monocytes/100 leukocytes 8 % 0-12 Automated blood eosinophils/100 leukocytes 2 % 0-10 Automated blood basophils/100 leukocytes 0 % 0-10 Blood neutrophils automated count (number/volume) 3.1 10*3 1.8-7.8 Blood lymphocytes automated count (number/volume) 0.5 10*3 1.0-4.0 Blood monocytes automated count (number/volume) 0.3 10*3 0.0-1.0 Automated eosinophil count 0.1 10*3/uL 0.0-0.3 Automated blood basophil count (count/volume) 0.0 10*3/uL 0.0-0.1 Comprehensive metabolic panel - 12/18/16 08:35 Serum or plasma sodium measurement (moles/volume) 138 mmol/ L 135-145 Serum or plasma potassium measurement (moles/volume) 3.9 mmol/L 3.6-5.0 Serum or plasma chloride measurement (moles/volume) 99 mmol/ L 98-107 Carbon dioxide 30 mmol/L 21-32 Serum or plasma anion gap determination (moles/volume) 9 mmol/L 5-14 Serum or plasma urea nitrogen measurement (mass/volume) 22 mg/dL 7-18 Serum or plasma creatinine measurement (mass/volume) 2.41 mg /dL 0.60-1.30 Serum or plasma urea nitrogen/creatinine mass ratio 9 NRG Serum or plasma creatinine measurement with calculation of estimated glomerular filtration rate 20 NRG Serum or plasma glucose measurement (mass/volume) 250 mg/dL 70-105 Serum or plasma calcium measurement (mass/volume) 8.4 mg/dL 8.5-10.1 Serum or plasma total bilirubin measurement (mass/volume) 0.6 mg/dL 0.1-1.0 Serum or plasma alkaline phosphatase measurement (enzymatic activity/volume) 108 U/L 40-136 Serum or plasma aspartate aminotransferase measurement (enzymatic activity/ volume) 13 U/L 5-34 Serum or plasma alanine aminotransferase measurement (enzymatic activity/volume ) 7 U/L 0-55 Serum or plasma protein measurement (mass/volume) 6.3 g/dL 6.4-8.2 Serum or plasma albumin measurement (mass/volume) 3.4 g/dL 3.2-4.5 Serum or plasma troponin i.cardiac measurement (mass/volume) - 12/18/16 08:35 Serum or plasma troponin i.cardiac measurement (mass/volume) < ng/mL <0.30 Complete blood count (CBC) with automated white blood cell (WBC) differential - 01/06/17 01:00 Blood leukocytes automated count (number/volume) 4.6 10*3/ uL 4.3-11.0 Blood erythrocytes automated count (number/volume) 3.30 10*6 /uL 4.35-5.85 Venous blood hemoglobin measurement (mass/volume) 10.6 g/dL 11.5-16.0 Blood hematocrit (volume fraction) 32 % 35-52 Automated erythrocyte mean corpuscular volume 98 [foz_us] 80-99 Automated erythrocyte mean corpuscular hemoglobin (mass per erythrocyte) 32 pg 25-34 Automated erythrocyte mean corpuscular hemoglobin concentration measurement ( mass/volume) 33 g/dL 32-36 Automated erythrocyte distribution width ratio 14.9 % 10.0-14.5 Automated blood platelet count (count/volume) 117 10*3/uL 130-400 Automated blood platelet mean volume measurement 9.7 [foz_us ] 7.4-10.4 Automated blood neutrophils/100 leukocytes 78 % 42-75 Automated blood lymphocytes/100 leukocytes 12 % 12-44 Blood monocytes/100 leukocytes 8 % 0-12 Automated blood eosinophils/100 leukocytes 2 % 0-10 Automated blood basophils/100 leukocytes 0 % 0-10 Blood neutrophils automated count (number/volume) 3.6 10*3 1.8-7.8 Blood lymphocytes automated count (number/volume) 0.6 10*3 1.0-4.0 Blood monocytes automated count (number/volume) 0.4 10*3 0.0-1.0 Automated eosinophil count 0.1 10*3/uL 0.0-0.3 Automated blood basophil count (count/volume) 0.0 10*3/uL 0.0-0.1 PT panel in platelet poor plasma by coagulation assay - 01/06/17 01:00 Prothrombin time (PT) in platelet poor plasma by coagulation assay 14.8 s 12.2-14.7 INR in platelet poor plasma or blood by coagulation assay 1.2 0.8-1.4 Comprehensive metabolic panel - 01/06/17 01:00 Serum or plasma sodium measurement (moles/volume) 137 mmol/ L 135-145 Serum or plasma potassium measurement (moles/volume) 3.6 mmol/L 3.6-5.0 Serum or plasma chloride measurement (moles/volume) 96 mmol/ L 98-107 Carbon dioxide 30 mmol/L 21-32 Serum or plasma anion gap determination (moles/volume) 11 mmol/L 5-14 Serum or plasma urea nitrogen measurement (mass/volume) 15 mg/dL 7-18 Serum or plasma creatinine measurement (mass/volume) 2.94 mg /dL 0.60-1.30 Serum or plasma urea nitrogen/creatinine mass ratio 5 NRG Serum or plasma creatinine measurement with calculation of estimated glomerular filtration rate 16 NRG Serum or plasma glucose measurement (mass/volume) 243 mg/dL 70-105 Serum or plasma calcium measurement (mass/volume) 8.2 mg/dL 8.5-10.1 Serum or plasma total bilirubin measurement (mass/volume) 0.5 mg/dL 0.1-1.0 Serum or plasma alkaline phosphatase measurement (enzymatic activity/volume) 120 U/L 40-136 Serum or plasma aspartate aminotransferase measurement (enzymatic activity/ volume) 28 U/L 5-34 Serum or plasma alanine aminotransferase measurement (enzymatic activity/volume ) 12 U/L 0-55 Serum or plasma protein measurement (mass/volume) 6.4 g/dL 6.4-8.2 Serum or plasma albumin measurement (mass/volume) 3.5 g/dL 3.2-4.5 Magnesium - 01/06/17 01:00 Magnesium 1.7 mg/dL 1.8-2.4 Lipase - 01/06/17 01:00 Lipase 19 U/L 8-78 Activated partial thromboplastin time (aPTT) in platelet poor plasma bycoagulation assay - 01/06/17 01:00 Activated partial thromboplastin time (aPTT) in platelet poor plasma bycoagulation assay > s 24-35 Serum or plasma lithium measurement (moles/volume) - 01/06/17 01:00 BNP level 383.6 pg/mL <100.0 Serum or plasma troponin i.cardiac measurement (mass/volume) - 01/06/17 01:00 Serum or plasma troponin i.cardiac measurement (mass/volume) < ng/mL <0.30 Complete blood count (CBC) with automated white blood cell (WBC) differential - 01/29/17 10:15 Blood leukocytes automated count (number/volume) 4.1 10*3/ uL 4.3-11.0 Blood erythrocytes automated count (number/volume) 3.57 10*6 /uL 4.35-5.85 Venous blood hemoglobin measurement (mass/volume) 11.3 g/dL 11.5-16.0 Blood hematocrit (volume fraction) 35 % 35-52 Automated erythrocyte mean corpuscular volume 98 [foz_us] 80-99 Automated erythrocyte mean corpuscular hemoglobin (mass per erythrocyte) 32 pg 25-34 Automated erythrocyte mean corpuscular hemoglobin concentration measurement ( mass/volume) 32 g/dL 32-36 Automated erythrocyte distribution width ratio 13.6 % 10.0-14.5 Automated blood platelet count (count/volume) 91 10*3/uL 130-400 Automated blood platelet mean volume measurement 10.4 [foz_ us] 7.4-10.4 Automated blood neutrophils/100 leukocytes 78 % 42-75 Automated blood lymphocytes/100 leukocytes 11 % 12-44 Blood monocytes/100 leukocytes 9 % 0-12 Automated blood eosinophils/100 leukocytes 2 % 0-10 Automated blood basophils/100 leukocytes 0 % 0-10 Blood neutrophils automated count (number/volume) 3.2 10*3 1.8-7.8 Blood lymphocytes automated count (number/volume) 0.5 10*3 1.0-4.0 Blood monocytes automated count (number/volume) 0.4 10*3 0.0-1.0 Automated eosinophil count 0.1 10*3/uL 0.0-0.3 Automated blood basophil count (count/volume) 0.0 10*3/uL 0.0-0.1 Comprehensive metabolic panel - 01/29/17 10:15 Serum or plasma sodium measurement (moles/volume) 135 mmol/ L 135-145 Serum or plasma potassium measurement (moles/volume) 4.8 mmol/L 3.6-5.0 Serum or plasma chloride measurement (moles/volume) 96 mmol/ L 98-107 Carbon dioxide 29 mmol/L 21-32 Serum or plasma anion gap determination (moles/volume) 10 mmol/L 5-14 Serum or plasma urea nitrogen measurement (mass/volume) 23 mg/dL 7-18 Serum or plasma creatinine measurement (mass/volume) 2.66 mg /dL 0.60-1.30 Serum or plasma urea nitrogen/creatinine mass ratio 9 NRG Serum or plasma creatinine measurement with calculation of estimated glomerular filtration rate 18 NRG Serum or plasma glucose measurement (mass/volume) 317 mg/dL 70-105 Serum or plasma calcium measurement (mass/volume) 8.9 mg/dL 8.5-10.1 Serum or plasma total bilirubin measurement (mass/volume) 0.5 mg/dL 0.1-1.0 Serum or plasma alkaline phosphatase measurement (enzymatic activity/volume) 113 U/L 40-136 Serum or plasma aspartate aminotransferase measurement (enzymatic activity/ volume) 22 U/L 5-34 Serum or plasma alanine aminotransferase measurement (enzymatic activity/volume ) 8 U/L 0-55 Serum or plasma protein measurement (mass/volume) 6.6 g/dL 6.4-8.2 Serum or plasma albumin measurement (mass/volume) 3.4 g/dL 3.2-4.5 Serum or plasma troponin i.cardiac measurement (mass/volume) - 01/29/17 10:15 Serum or plasma troponin i.cardiac measurement (mass/volume) < ng/mL <0.30 Complete blood count (CBC) with automated white blood cell (WBC) differential - 03/19/17 04:15 Blood leukocytes automated count (number/volume) 3.9 10*3/ uL 4.3-11.0 Blood erythrocytes automated count (number/volume) 3.39 10*6 /uL 4.35-5.85 Venous blood hemoglobin measurement (mass/volume) 10.6 g/dL 11.5-16.0 Blood hematocrit (volume fraction) 34 % 35-52 Automated erythrocyte mean corpuscular volume 99 [foz_us] 80-99 Automated erythrocyte mean corpuscular hemoglobin (mass per erythrocyte) 31 pg 25-34 Automated erythrocyte mean corpuscular hemoglobin concentration measurement ( mass/volume) 32 g/dL 32-36 Automated erythrocyte distribution width ratio 13.5 % 10.0-14.5 Automated blood platelet count (count/volume) 84 10*3/uL 130-400 Automated blood platelet mean volume measurement 10.2 [foz_ us] 7.4-10.4 Automated blood neutrophils/100 leukocytes 75 % 42-75 Automated blood lymphocytes/100 leukocytes 12 % 12-44 Blood monocytes/100 leukocytes 10 % 0-12 Automated blood eosinophils/100 leukocytes 3 % 0-10 Automated blood basophils/100 leukocytes 0 % 0-10 Blood neutrophils automated count (number/volume) 2.9 10*3 1.8-7.8 Blood lymphocytes automated count (number/volume) 0.5 10*3 1.0-4.0 Blood monocytes automated count (number/volume) 0.4 10*3 0.0-1.0 Automated eosinophil count 0.1 10*3/uL 0.0-0.3 Automated blood basophil count (count/volume) 0.0 10*3/uL 0.0-0.1 PT panel in platelet poor plasma by coagulation assay - 03/19/17 04:15 Prothrombin time (PT) in platelet poor plasma by coagulation assay 14.0 s 12.2-14.7 INR in platelet poor plasma or blood by coagulation assay 1.1 0.8-1.4 Activated partial thromboplastin time (aPTT) in platelet poor plasma bycoagulation assay - 03/19/17 04:15 Activated partial thromboplastin time (aPTT) in platelet poor plasma bycoagulation assay 44 s 24-35 Comprehensive metabolic panel - 03/19/17 04:15 Serum or plasma sodium measurement (moles/volume) 135 mmol/ L 135-145 Serum or plasma potassium measurement (moles/volume) 4.6 mmol/L 3.6-5.0 Serum or plasma chloride measurement (moles/volume) 97 mmol/ L 98-107 Carbon dioxide 28 mmol/L 21-32 Serum or plasma anion gap determination (moles/volume) 10 mmol/L 5-14 Serum or plasma urea nitrogen measurement (mass/volume) 23 mg/dL 7-18 Serum or plasma creatinine measurement (mass/volume) 2.58 mg /dL 0.60-1.30 Serum or plasma urea nitrogen/creatinine mass ratio 9 NRG Serum or plasma creatinine measurement with calculation of estimated glomerular filtration rate 19 NRG Serum or plasma glucose measurement (mass/volume) 196 mg/dL 70-105 Serum or plasma calcium measurement (mass/volume) 8.2 mg/dL 8.5-10.1 Serum or plasma total bilirubin measurement (mass/volume) 0.4 mg/dL 0.1-1.0 Serum or plasma alkaline phosphatase measurement (enzymatic activity/volume) 120 U/L 40-136 Serum or plasma aspartate aminotransferase measurement (enzymatic activity/ volume) 13 U/L 5-34 Serum or plasma alanine aminotransferase measurement (enzymatic activity/volume ) 8 U/L 0-55 Serum or plasma protein measurement (mass/volume) 6.4 g/dL 6.4-8.2 Serum or plasma albumin measurement (mass/volume) 3.2 g/dL 3.2-4.5 Magnesium - 03/19/17 04:15 Magnesium 1.8 mg/dL 1.8-2.4 Serum or plasma troponin i.cardiac measurement (mass/volume) - 03/19/17 04:15 Serum or plasma troponin i.cardiac measurement (mass/volume) < ng/mL <0.30 Myoglobin, serum - 03/19/17 04:15 Myoglobin, serum 181.2 ng/mL 10.0-92.0 Encounters ACCT No. Visit Date/Time Discharge Status Pt. Type Provider Facility Loc./Unit Complaint [id number] 01/01/2015 10:41:00 01/01/2015 23: 59:59 [facility] Outpatient [facility] Zaidi [id number] 11/28/2014 10:59:00 11/28/2014 23: 59:59 [id number] 09/18/2014 10:06:00 09/18/2014 23: 59:59 [facility] Zaidi [id number] 08/07/2014 10:01:00 08/07/2014 23: 59:59 [facility] Zaidi [id number] 07/10/2014 10:13:00 07/10/2014 23: 59:59 [facility] Zaidi [id number] 06/26/2014 10:19:00 06/26/2014 23: 59:59 [facility] Out[facility] Zaidi [id number] 06/12/2014 10:01:00 06/12/2014 23: 59:59 [facility] [id number] 05/15/2014 13:01:00 05/15/2014 23: 59:59 [facility] [id number] 05/10/2014 16:00:00 05/10/2014 23: 59:59 [facility] Outpatient [facility] [id number] 04/26/2014 13:46:00 04/26/2014 23: 59:59 [facility] Outpatient [facility] [id number] 03/14/2014 12:05:00 03/14/2014 23: 59:59 [facility] Outpatient [facility]
--- NOTE | 2017-03-19 07:16 | Diagnostic Imaging Report ---
AP view of the chest. INDICATION: Chest pain. FINDINGS: The heart is moderately enlarged with pulmonary vascular congestion and interstitial pulmonary edema. No effusion or pneumothorax The mediastinum and casper appear unremarkable. A tunnelled large bore right internal jugular venous catheter seen. IMPRESSION: Cardiomegaly with interstitial edema. Dictated by: Dictated on workstation # [id number]
== END 2017-03-19 05:52 | disposition short-term general hospital (02) ==
LOC: EDUNIT# 03:19 → ER 03:22
DX: R07.9 Chest pain, unspecified (principal); R11.0 Nausea; E11.22 Type 2 diabetes mellitus with diabetic chronic kidney disease; I12.0 Hypertensive chronic kidney disease with stage 5 chronic kidney disease or end stage renal disease; N18.6 End stage renal disease; I25.10 Atherosclerotic heart disease of native coronary artery without angina pectoris; D64.9 Anemia, unspecified; F41.0 Panic disorder [episodic paroxysmal anxiety]; E03.9 Hypothyroidism, unspecified; M19.90 Unspecified osteoarthritis, unspecified site; K21.9 Gastro-esophageal reflux disease without esophagitis; J44.9 Chronic obstructive pulmonary disease, unspecified; Z90.49 Acquired absence of other specified parts of digestive tract; Z95.5 Presence of coronary angioplasty implant and graft; Z79.82 Long term (current) use of aspirin; Z90.710 Acquired absence of both cervix and uterus; Z99.2 Dependence on renal dialysis; Z79.4 Long term (current) use of insulin; Z90.722 Acquired absence of ovaries, bilateral; Z86.73 Personal history of transient ischemic attack (TIA), and cerebral infarction without residual deficits; Z98.890 Other specified postprocedural states
CPT/HCPCS: 36415; 71010; 80053; 83735; 83874; 84484; 85025; 85610; 85730; 93005; 93041

== ENCOUNTER 2017-04-01 09:23 | Emergency (ER) | payer MEDICARE, MEDICAID ==
[~2017-04-01] VITALS: Ht 157.5 cm; Wt 93.0 kg
[2017-04-01 09:43] LABS: BASOPHILS % (AUTO) 0 % (0-10); EOSINOPHILS # (AUTO) 0.1 10^3/uL (0.0-0.3); EOSINOPHILS % (AUTO) 2 % (0-10); LYMPHOCYTES # (AUTO) 0.4 X 10^3 (1.0-4.0); LYMPHOCYTES % (AUTO) 12 % (12-44); MEAN CORPUSCULAR HEMOGLOBIN 32 PG (25-34); MEAN CORPUSCULAR HGB CONC 34 G/DL (32-36); MEAN CORPUSCULAR VOLUME 93 FL (80-99); MONOCYTES # (AUTO) 0.4 X 10^3 (0.0-1.0); MONOCYTES % (AUTO) 10 % (0-12); NEUTROPHILS # (AUTO) 2.5 X 10^3 (1.8-7.8); NEUTROPHILS % (AUTO) 75 % (42-75); PLATELET COUNT 87 10^3/uL (130-400); RED BLOOD COUNT 3.63 10^6/uL (4.35-5.85); RED CELL DISTRIBUTION WIDTH 12.9 % (10.0-14.5); WHITE BLOOD COUNT 3.4 10^3/uL (4.3-11.0)
[2017-04-01] MEDS ORDERED: ONDANSETRON 4 MG/2 ML (SDV) Z0FRAN IVP ONE (09:45)
[2017-04-01] MEDS ORDERED: fentaNYL INJECTION 100 MCG/2 ML AMP IVP ONE ×2 (09:45→10:15)
[2017-04-01 09:57] LABS: ALANINE AMINOTRANSFERASE 8 U/L (0-55); ALBUMIN 3.2 GM/DL (3.2-4.5); ANION GAP 12 MMOL/L (5-14); ASPARTATE AMINO TRANSFERASE 15 U/L (5-34); BILIRUBIN,TOTAL 0.3 MG/DL (0.1-1.0); BLOOD UREA NITROGEN 13 MG/DL (7-18); BUN/CREATININE RATIO 8; CALCIUM 7.7 MG/DL (8.5-10.1); CARBON DIOXIDE 25 MMOL/L (21-32); CHLORIDE 97 MMOL/L (98-107); CREATININE SERUM 1.73 MG/DL (0.60-1.30); GFR ESTIMATED 30; GLUCOSE 234 MG/DL (70-105); MAGNESIUM 1.6 MG/DL (1.8-2.4); POTASSIUM 3.5 MMOL/L (3.6-5.0); SODIUM 134 MMOL/L (135-145); TOTAL PROTEIN 6.3 GM/DL (6.4-8.2)
[2017-04-01 10:04] LABS: MYOGLOBIN SERUM 139.4 NG/ML (10.0-92.0)
--- NOTE | 2017-04-01 10:09 | Diagnostic Imaging Report ---
Portable upright radiograph of the chest. INDICATION: Chest pain. COMPARISON: 03/19/2017. FINDINGS: There is a large-bore right IJ venous catheter. There is an infusion port also seen with the tip at the SVC level through the left subclavian axis. The heart size is markedly enlarged. There is pulmonary vascular congestion similar to picture in chest x-ray of 03/19/2017. No significant effusion. No pneumothorax. IMPRESSION: Cardiomegaly with pulmonary vascular congestion. Dictated by: Dictated on workstation # [id number]
--- NOTE | 2017-04-01 10:22 | ED Chest Pain ---
General Chief Complaint: Chest Pain Stated Complaint: CHEST PAIN Nursing Triage Note: ARRIVED VIA EMS FROM HOME WITH COMPLAINTS OF CHEST PAIN STARTING AROUND 0700. PT PUT A NITRO PATCH ON AND TOOK HER ZOFRAN. UPON EMS ARRIVAL PT COMPLAINED OF PAIN /10 WITH A BP OF 221/89. NITRO 0.4MG, ASA 324 MG, FENTENYL 50MCG IV GIVEN. UPON ARRIVAL TO ER PT PAIN IS A 7/10, PT RECIEVES DIALYSIS M,W,F. WAS DISCHARGED ON WEDNESDAY FROM [facility] AFTER HAVING A HEART CATH WITH STENTS. CATH DONE THRU LEFT LOWER ARM. Nursing Sepsis Screen: No Definite Risk Source: patient, EMS, old records Exam Limitations: no limitations History of Present Illness Time seen by provider: 09:24 Initial Comments This 66-year-old woman presents to the emergency room with severe chest pain and hypertension. She was recently seen in this emergency room and transferred to [facility] where she had a cardiac catheterization and stent placed. She was dismissed from [facility] on March 29. Her pain started around 08:00 this morning. She took a nitroglycerin tablet and applied a nitroglycerin patch. EMS reports that her initial blood pressure was extremely high at 221/89. It has been improving since then. On arrival her blood pressure was 175/83. In route EMS administered a second nitroglycerin. She also received fentanyl 50 g , aspirin 324 mg, and Zofran 4 mg by EMS. Patient is still having some significant pain on arrival. She is a dialysis patient and her last dialysis was yesterday. Her primary line and frame poler is Dr. Rogers in [place]. Allergies and Home Medications Allergies Coded Allergies: propoxyphene (Verified Allergy, Mild, DIZZINESS, 02/20/14) codeine (Verified Allergy, Unknown, CAN TAKE OXYCODONE, 02/20/14) esomeprazole (Verified Allergy, Unknown, 02/20/14) ketorolac (Verified Allergy, Unknown, PT TAKES ASPIRIN AT HOME, 02/20/14) levofloxacin (Verified Allergy, Unknown, 02/20/14) promethazine (Verified Allergy, Unknown, 02/20/14) Uncoded Allergies: TAPE (Adverse Reaction, Mild, RASH, 11/23/14) Home Medications Albuterol Sulfate 8.5 Gm Hfa.aer.ad, 2 PUFF INH Q4H PRN for SHORTNESS OF BREATH, (Reported) Aspirin 81 Mg Tablet.dr, 81 MG PO DAILY, (Reported) Budesonide/Formoterol Fumarate 10.2 Gm Hfa.aer.ad, 2 PUFF INH BID, (Reported) Cephalexin 500 Mg Capsule, 500 MG PO BID, #14 Prescribed by: VERNON FLORES on 08/24/16 1847 Clopidogrel Bisulfate 75 Mg Tablet, 75 MG PO HS, (Reported) Cyanocobalamin 50 Mcg Lozenge, 50 MCG PO DAILY, (Reported) Doxazosin Mesylate 4 Mg Tablet, 4 MG PO DAILY, (Reported) Ezetimibe 10 Mg Tablet, 10 MG PO HS, (Reported) Furosemide 40 Mg Tablet, 40 MG PO DAILY, (Reported) Gabapentin 300 Mg Capsule, 300 MG PO TID, (Reported) Gentamicin Sulfate 5 Ml Drops, 1 DROP OU Q6H PRN for ALLERGIES, (Reported) Ibuprofen 800 Mg Tablet, 800 MG PO BID PRN for PAIN, (Reported) Insulin Aspart 100 Unit/1 Ml Susp, SQ UD, (Reported) 201-250 = 2 UNITS 251-300 = 4 UNITS 301-350 = 6 UNITS 351-400 = 8 UNITS IF > THAN 400, CALL PHYSICIAN Insuln Asp Prt/Insulin Aspart 300 Units/3 Ml Solution, 10 UNITS SQ HS, (Reported ) Insuln Asp Prt/Insulin Aspart 300 Units/3 Ml Solution, 30 UNITS SC DAILY, ( Reported) Isosorbide Mononitrate 30 Mg Tab.er.24h, 15 MG PO HS, (Reported) TAKES 1/2 (30MG) TABLET Levothyroxine Sodium 50 Mcg Tablet, 50 MCG PO DAILY, (Reported) Lorazepam 0.5 Mg Tablet, 0.5 MG PO TID PRN for ANXIETY, (Reported) Metoprolol Succinate 200 Mg Tab.er.24h, 200 MG PO DAILY, (Reported) Montelukast Sodium 10 Mg Tablet, 10 MG PO HS, (Reported) Nitroglycerin 0.4 Mg Tab.subl, 0.4 MG SL UD PRN for CHEST PAIN, (Reported) PLACE 1 TABLET UNDER TONGUE EVERY 5 MINUTES X 3 DOSES NEEDED FOR CHEST PAIN Nystatin 15 Gm Powder, TOP BID PRN for RASH, (Reported) Omeprazole 40 Mg Capsule.dr, 40 MG PO DAILY, (Reported) Ondansetron HCl 4 Mg Tablet, 4 MG SL TID PRN for NAUSEA, (Reported) Oxycodone HCl/Acetaminophen 1 Each Tablet, 1 TAB PO Q6H PRN for PAIN, (Reported) Review of Systems Constitutional: no symptoms reported EENTM: No Symptoms Reported Respiratory: No Symptoms Reported Cardiovascular: See HPI Gastrointestinal: See HPI, Nausea Genitourinary: No Symptoms Reported Musculoskeletal: no symptoms reported Skin: no symptoms reported Psychiatric/Neurological: No Symptoms Reported Endocrine: No Symptoms Reported Past Iyougne-Qarpwt-Msjlia Hx Patient Social History Recent Foreign Travel: No Contact w/Someone Who Travel: No Recent Infectious Disease Expo: No Recent Hopitalizations: Yes Immunizations Up To Date Tetanus Booster (TDap): Unknown PED Vaccines UTD: Yes Date of Pneumonia Vaccine: Feb 04, 2011 Date of Influenza Vaccine: Jun 08, 2017 Seasonal Allergies Seasonal Allergies: Yes Surgeries HX Surgeries: Yes (port and dialysis catheter) Surgeries: Abdominal, Appendectomy, Arteriovenous Shunt, Cardiac, Coronary Stent, Dialysis, Eye Surgery, Gallbladder, Hysterectomy, Oophorectomy, Orthopedic, Vascular Surgery Respiratory Hx Respiratory Disorders: Yes Respiratory Disorders: Asthma, COPD Cardiovascular Hx Cardiac Disorders: Yes Cardiac Disorders: Coronary Artery Disease, Hypertension Neurological Hx Neurological Disorders: Yes Neurological Disorders: Stroke Reproductive System Hx Reproductive Disorders: Yes Sexually Transmitted Disease: No HIV/AIDS: No [employer]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 Genitourinary Hx Genitourinary Disorders: Yes Genitourinary Disorders: Renal Failure, Dialysis Gastrointestinal Hx Gastrointestinal Disorders: Yes (SPASTIC COLON) Gastrointestinal Disorders: Gastroesophageal Reflux, Diverticulosis, Pancreatitis Musculoskeletal Hx Musculoskeletal Disorders: Yes (SCIATICA CHRONIC, RIGHT ARM FX 2015-CHRONIC RIGHT ARM PAIN ) Musculoskeletal Disorders: Arthritis, Fibromyalgia, Chronic Back Pain, Fractures Endocrine Hx Endocrine Disorders: Yes Endocrine Disorders: Diabetes, Insulin dep, Hypothyroidsim HEENT HX ENT Disorders: Yes (HX RETINAL BLOOD VESSELS RUPTURING ) HEENT Disorders: Cataract Cancer Hx Cancer: No Psychosocial Hx Psychiatric Problems: Yes (PANIC ATTACKS) Behavioral Health Disorders: Anxiety Integumentary HX Skin/Integumentary Disorder: Yes (HX MRSA ) Blood Transfusions Hx Blood Disorders: Yes (being treated by dr. rogel for low blood counts/ANEMIA) Adverse Reaction to a Blood Tr: No (does not want to receieve blood products) Family Medical History Family Medial History: Cancer 03 MOTHER (OVARIAN CANCER) Congestive heart failure 09 BROTHER ( OF CHF) DVT 09 SISTER FH: COPD (chronic obstructive pulmonary disease) 09 SISTER FH: bipolar disorder 09 BROTHER FH: emphysema 03 FATHER FHx: multiple sclerosis 09 BROTHER Family history: Cardiovascular disease 03 FATHER, Onset:Unknown Family history: Diabetes mellitus 03 MOTHER 09 BROTHER Family history: Hypertension 09 SISTER (ACTUALLY HAS LOW BLOOD PRESSURE NOT HIGH) Physical Exam Vital Signs Vital Sign - Last 12Hours 04/01/17 04/01/17 09:23 09:55 Temp 96.4 Pulse 74 Resp 16 B/P (MAP) 175/83 Pulse Ox 98 O2 Delivery Nasal Cannula O2 Flow Rate 3.00 Capillary Refill : Less Than 3 Seconds General Appearance: WD/WN, Moderate Distress HEENT: PERRL/EOMI, Normal ENT Inspection Neck: Normal Inspection Respiratory: Lungs Clear, Normal Breath Sounds, No Accessory Muscle Use, No Respiratory Distress Cardiovascular: Regular Rate, Rhythm, No Edema, No Murmur Gastrointestinal: Normal Bowel Sounds, Non Tender, Soft Extremity: Normal Inspection, No Pedal Edema, Other (chronic skin changes, diffuse lower extremity tenderness from "fibromyalgia") Neurologic/Psychiatric: Alert, Oriented x3, No Motor/Sensory Deficits, Normal Mood/Affect, 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 Norm as Tested Skin: Normal Color, Warm/Dry Progress/Results/Core Measures Results/Orders Lab Results Laboratory Tests Test 04/01/17 09:30 04/01/17 10:38 Range/Units White Blood Count 3.4 L 4.3-11.0 10^3/uL Red Blood Count 3.63 L 4.35-5.85 10^6/uL Hemoglobin 11.6 11.5-16.0 G/DL Hematocrit 34 L 35-52 % Mean Corpuscular Volume 93 80-99 FL Mean Corpuscular Hemoglobin 32 25-34 PG Mean Corpuscular Hemoglobin Concent 34 32-36 G/DL Red Cell Distribution Width 12.9 10.0-14.5 % Platelet Count 87 L 130-400 10^3/uL Mean Platelet Volume 10.0 7.4-10.4 FL Neutrophils (%) (Auto) 75 42-75 % Lymphocytes (%) (Auto) 12 12-44 % Monocytes (%) (Auto) 10 0-12 % Eosinophils (%) (Auto) 2 0-10 % Basophils (%) (Auto) 0 0-10 % Neutrophils # (Auto) 2.5 1.8-7.8 X 10^3 Lymphocytes # (Auto) 0.4 L 1.0-4.0 X 10^3 Monocytes # (Auto) 0.4 0.0-1.0 X 10^3 Eosinophils # (Auto) 0.1 0.0-0.3 10^3/uL Basophils # (Auto) 0.0 0.0-0.1 10^3/uL Sodium Level 134 L 135-145 MMOL/L Potassium Level 3.5 L 3.6-5.0 MMOL/L Chloride Level 97 L 98-107 MMOL/L Carbon Dioxide Level 25 21-32 MMOL/L Anion Gap 12 5-14 MMOL/L Blood Urea Nitrogen 13 7-18 MG/DL Creatinine 1.73 H 0.60-1.30 MG/DL Estimat Glomerular Filtration Rate 30 BUN/Creatinine Ratio 8 Glucose Level 234 H 70-105 MG/DL Calcium Level 7.7 L 8.5-10.1 MG/DL Magnesium Level 1.6 L 1.8-2.4 MG/DL Total Bilirubin 0.3 0.1-1.0 MG/DL Aspartate Amino Transf (AST/SGOT) 15 5-34 U/L Alanine Aminotransferase (ALT/SGPT) 8 0-55 U/L Alkaline Phosphatase 107 40-136 U/L Myoglobin 139.4 H 10.0-92.0 NG/ML Troponin I < 0.30 <0.30 NG/ML Total Protein 6.3 L 6.4-8.2 GM/DL Albumin 3.2 3.2-4.5 GM/DL Prothrombin Time 14.2 12.2-14.7 SEC INR Comment 1.1 0.8-1.4 Activated Partial Thromboplast Time 32 24-35 SEC My Orders Orders - VERNON COLLIER MD Cbc With Automated Diff (04/01/17 09:35) Magnesium (04/01/17 09:35) Chest 1 View, Ap/Pa Only (04/01/17:35) Ekg Tracing (04/01/17:35) Cardiac Profile 1 (04/01/17 09:35) Comprehensive Metabolic Panel (04/01/17 09:35) Myoglobin Serum (04/01/17 09:35) O2 (04/01/17 09:35) Monitor-Rhythm Ecg Trace Only (7/27/17 09:35) Saline Lock/Iv-Start (04/01/17 09:35) Fentanyl Injection (Sublimaze Injection (04/01/17 09:45) Ondansetron Injection (Zofran Injectio (04/01/17 09:45) Fentanyl Injection (Sublimaze Injection (04/01/17 10:15) Protime With Inr (04/01/17 10:25) Partial Thromboplastin Time (04/01/17 10:25) Metoclopramide Injection (Reglan Injecti (04/01/17 10:45) Ekg Tracing (04/01/17 10:48) Heparin Drip 22970 Unit/500ml (Heparin (04/01/17 10:59) Heparin (Bolus Per Protocol) (Heparin (B (04/01/17 11:00) Hydromorphone Injection (Dilaudid Inject (04/01/17 11:01) Medications Given in ED Current Medications Medications Dose Ordered Sig/Adela Route Start Time Stop Time Status Last Admin Dose Admin Fentanyl Citrate 75 mcg ONCE ONCE IVP 04/01/17 09:45 04/01/17 09:46 DC 04/01/17 09:45 75 MCG Fentanyl Citrate 75 mcg ONCE ONCE IVP 04/01/17 10:15 04/01/17 10:16 DC 04/01/17 10:23 75 MCG Heparin Sodium (Porcine) HEPARIN FULL PROTOC... ONCE ONCE IV 04/01/17 11:00 04/01/17 11:01 DC 04/01/17 11:12 5,000 UNIT Heparin Sodium/ Dextrose 500 ml @ 0 mls/hr Q0M ONCE IV 04/01/17 10:59 04/01/17 11:00 DC 04/01/17 11:13 24 MLS/HR Metoclopramide HCl 5 mg ONCE ONCE IVP 04/01/17 10:45 04/01/17 10:46 DC 04/01/17 10:38 5 MG Ondansetron HCl 4 mg ONCE ONCE IVP 04/01/17 09:45 04/01/17 09:46 DC 04/01/17 09:45 4 MG Vital Signs/I&O Vital Sign - Last 12Hours 04/01/17 04/01/17 04/01/17 09:23 09:55 11:33 Temp 96.4 98.0 Pulse 74 63 Resp 16 16 B/P (MAP) 175/83 Pulse Ox 98 99 O2 Delivery Nasal Cannula Nasal Cannula Nasal Cannula O2 Flow Rate 3.00 3.00 Blood Pressure Mean: 113 Progress Note #1: Time: 10:21 Progress Note Patient's blood pressure has improved. Last blood pressure seen on monitor was systolic 155. Pain initially improved with fentanyl but is now rebounding. There is some pulmonary congestion on chest x-ray. Labs are fairly unremarkable. Case was reviewed with Dr. Hernandez, line and frame poler at [facility]. He excepts a transfer. Patient requires transfer to a facility with nephrology and dialysis. Patient has required Zofran for nausea and additional fentanyl has been ordered. Dr. Hernandez requested patient be started on a heparin drip. However, patient's PTT resulted out greater than 200. This is likely due to blood draw from a port in which heparin was injected. A peripheral draw will be obtained and heparin will be started if PTT is within acceptable range. Progress Note #2: Time: 11:05 Progress Note Patient complains of headache since taking nitroglycerin that has not improved with fentanyl. A lot of 0.5 mg be administered for treatment of headache. PTT and INR have returned normal. Heparin drip has been ordered. The number has been assigned and EMS has been activated. ECG EKG #1: EKG Time: 09:36 Rate: 74 Rhythm: Normal Sinus Comment Normal sinus rhythm with no ST elevation or depression. Low voltage in some leads. First degree AV block. No significant change from prior EKG #2: EKG Time: 10:17 Rate: 73 Rhythm: Normal Sinus Comment Sinus rhythm with no ST elevation or depression. First-degree AV block. No significant change from prior. Diagnostic Imaging Diagonstic Imaging: Xray Plain Films/CT/US/NM/MRI: chest Comments Chest x-ray viewed by me and report reviewed. See report below: NAME: MALVIN PRUETT [facility] REC#: [id number] PT STATUS: REG ER : 1950 PHYSICIAN: VERNON COLLIER MD ADMIT DATE: 04/01/17/ER Signed Date of Exam: 04/01/17 CHEST 1 VIEW, AP/PA ONLY Portable upright radiograph of the chest. INDICATION: Chest pain. COMPARISON: 03/19/2017. FINDINGS: There is a large-bore right IJ venous catheter. There is an infusion port also seen with the tip at the SVC level through the left subclavian axis. The heart size is markedly enlarged. There is pulmonary vascular congestion similar to picture in chest x-ray of 03/19/2017. No significant effusion. No pneumothorax. IMPRESSION: Cardiomegaly with pulmonary vascular congestion. Dictated by: Dictated on workstation # [id number] Dict: 04/01/17 1005 Trans: 04/01/17 1038 Interpreted by: SINDY BERTRAND MD Electronically signed by: SINDY BERTRAND MD 04/01/17 1038 Departure Impression Impression: Primary Impression: Chest pain Qualified Codes: R07.9 - Chest pain, unspecified Additional Impressions: Uncontrolled hypertension Hx of coronary artery disease Nausea Headache Qualified Codes: R51 - Headache End stage renal failure on dialysis Disposition: 02 XFER SHT-TRM HOSP Condition: Improved Transfer Transfer Time: 11:31 Transfer Facility: [facility], Dr. Hernandez accepting. Method of Transfer: EMS Departure-Patient Inst. Referrals: ISABEL HUMPHREYS MD (PCP/Family) Primary Care Physician VERNON COLLIER MD Apr 01, 2017 10:22
[2017-04-01] MEDS ORDERED: METOCLOPRAMIDE INJ 10 MG/2 ML (REGLAN) IVP ONE (10:45)
[2017-04-01 10:55] LABS: INR 1.1 (0.8-1.4); PROTHROMBIN TIME PATIENT 14.2 SEC (12.2-14.7)
[2017-04-01] MEDS ORDERED: HEParin DRIP 25000 UNIT/500ML 500 ML IV ONE (10:59)
[2017-04-01] MEDS ORDERED: HEParin 1000 UNIT/ML (10ML VIAL) FOR BOLUS IV ONE (11:00)
[2017-04-01] MEDS ORDERED: HYDROmorphone (DILAUDID) 2 MG/ML VIAL IVP STA (11:01)
[2017-04-01 11:33] VITALS: BP 131/53
== END 2017-04-01 11:33 | disposition short-term general hospital (02) ==
LOC: EDUNIT# 09:23 → ER 09:24
DX: R07.9 Chest pain, unspecified (principal); I16.0 Hypertensive urgency; I25.10 Atherosclerotic heart disease of native coronary artery without angina pectoris; I51.7 Cardiomegaly; R51 Headache; R11.0 Nausea; I12.0 Hypertensive chronic kidney disease with stage 5 chronic kidney disease or end stage renal disease; N18.6 End stage renal disease; Z99.2 Dependence on renal dialysis; E11.22 Type 2 diabetes mellitus with diabetic chronic kidney disease; J44.9 Chronic obstructive pulmonary disease, unspecified; Z79.4 Long term (current) use of insulin; Z79.82 Long term (current) use of aspirin; Z79.02 Long term (current) use of antithrombotics/antiplatelets; Z79.899 Other long term (current) drug therapy; Z95.5 Presence of coronary angioplasty implant and graft
CPT/HCPCS: 36415; 71010; 80053; 83735; 83874; 84484; 85025; 85610; 85730; 93041; 96365; 96375; 96376

== ENCOUNTER 2017-04-29 15:43 | Emergency (ER) | payer MEDICARE, MEDICAID ==
[~2017-04-29] VITALS: Ht 160 cm; Wt 99.8 kg
--- OUTSIDE RECORDS SUMMARY | 2017-04-29 15:50 | XMS REPORT | Clinical Summary ---
Author Author [facility] Organization [facility] Address Unknown Phone Unavailable Care Team Providers Care Wine Steward Name Role Phone PCP Unavailable Source Comments Some departments are not documenting in the electronic medical record. If you do not see the information that you expected, contact Release of Information in the Health Information Management department at [phone] for further assistance in locating additional records.[facility] Allergies Not on File Current Medications Not on file Active Problems Not on file Social History Tobacco Use Types Packs/Day Years Used Date Never Assessed Sex Assigned at Date Recorded Not on file Last Filed Vital Signs Not on file Plan of Treatment Health Maintenance Due Date Last Done Comments HEPATITIS C SCREENING 1950 PHYSICAL (COMPREHENSIVE) 1958 EXAM PERTUSSIS VACCINE 1962 TETANUS VACCINE 1968 BREAST CANCER SCREENING 1991 COLORECTAL CANCER 2001 SCREENING SHINGLES VACCINE 2011 OSTEOPOROSIS SCREENING 2016 PREVNAR/PNEUMOVAX (#1) 2016 INFLUENZA VACCINE 05/07/2017 Results Not on filefrom Last 3 Months
--- NOTE | 2017-04-29 16:03 | ED General ---
General Stated Complaint: CHEST PAIN Source of Information: Patient Exam Limitations: No Limitations History of Present Illness Time Seen by Provider: 16:02 Initial Comments To ER per EMS from home with reports of chest pain. The chest pain is left- sided radiates up to her left ear. She has a history of 12 coronary stents she states. She is a dialysis patient receiving dialysis on Wednesday. However this week she had other obligations on Wednesday so she receives dialysis on Wednesday and will receive it again tomorrow. Her pain is rated at 10 out of 10 despite her fentanyl patch. No improvement with nitroglycerin. She's been transferred to [place] for cardiac evaluation for chest pain multiple times this year. Timing/Duration: 1-2 Days Severity: Moderate Associated Systoms: Chest Pain Allergies and Home Medications Allergies Coded Allergies: propoxyphene (Verified Allergy, Mild, DIZZINESS, 02/20/14) codeine (Verified Allergy, Unknown, CAN TAKE OXYCODONE, 02/20/14) esomeprazole (Verified Allergy, Unknown, 02/20/14) ketorolac (Verified Allergy, Unknown, PT TAKES ASPIRIN AT HOME, 02/20/14) levofloxacin (Verified Allergy, Unknown, 02/20/14) promethazine (Verified Allergy, Unknown, 02/20/14) Uncoded Allergies: TAPE (Adverse Reaction, Mild, RASH, 11/23/14) Home Medications Albuterol Sulfate 8.5 Gm Hfa.aer.ad, 2 PUFF INH Q4H PRN for SHORTNESS OF BREATH, (Reported) Aspirin 81 Mg Tablet.dr, 81 MG PO DAILY, (Reported) Budesonide/Formoterol Fumarate 10.2 Gm Hfa.aer.ad, 2 PUFF INH BID, (Reported) Cephalexin 500 Mg Capsule, 500 MG PO BID, #14 Prescribed by: VERNON FLORES on 08/24/16 4472 Clopidogrel Bisulfate 75 Mg Tablet, 75 MG PO HS, (Reported) Cyanocobalamin 50 Mcg Lozenge, 50 MCG PO DAILY, (Reported) Doxazosin Mesylate 4 Mg Tablet, 4 MG PO DAILY, (Reported) Ezetimibe 10 Mg Tablet, 10 MG PO HS, (Reported) Furosemide 40 Mg Tablet, 40 MG PO DAILY, (Reported) Gabapentin 300 Mg Capsule, 300 MG PO TID, (Reported) Gentamicin Sulfate 5 Ml Drops, 1 DROP OU Q6H PRN for ALLERGIES, (Reported) Ibuprofen 800 Mg Tablet, 800 MG PO BID PRN for PAIN, (Reported) Insulin Aspart 100 Unit/1 Ml Susp, SQ UD, (Reported) 201-250 = 2 UNITS 251-300 = 4 UNITS 301-350 = 6 UNITS 351-400 = 8 UNITS IF > THAN 400, CALL PHYSICIAN Insuln Asp Prt/Insulin Aspart 300 Units/3 Ml Solution, 10 UNITS SQ HS, (Reported ) Insuln Asp Prt/Insulin Aspart 300 Units/3 Ml Solution, 30 UNITS SC DAILY, ( Reported) Isosorbide Mononitrate 30 Mg Tab.er.24h, 15 MG PO HS, (Reported) TAKES 1/2 (30MG) TABLET Levothyroxine Sodium 50 Mcg Tablet, 50 MCG PO DAILY, (Reported) Lorazepam 0.5 Mg Tablet, 0.5 MG PO TID PRN for ANXIETY, (Reported) Metoprolol Succinate 200 Mg Tab.er.24h, 200 MG PO DAILY, (Reported) Montelukast Sodium 10 Mg Tablet, 10 MG PO HS, (Reported) Nitroglycerin 0.4 Mg Tab.subl, 0.4 MG SL UD PRN for CHEST PAIN, (Reported) PLACE 1 TABLET UNDER TONGUE EVERY 5 MINUTES X 3 DOSES NEEDED FOR CHEST PAIN Nystatin 15 Gm Powder, TOP BID PRN for RASH, (Reported) Omeprazole 40 Mg Capsule.dr, 40 MG PO DAILY, (Reported) Ondansetron HCl 4 Mg Tablet, 4 MG SL TID PRN for NAUSEA, (Reported) Oxycodone HCl/Acetaminophen 1 Each Tablet, 1 TAB PO Q6H PRN for PAIN, (Reported) Constitutional: see HPI EENTM: see HPI Respiratory: no symptoms reported Cardiovascular: see HPI, chest pain Genitourinary: no symptoms reported Musculoskeletal: no symptoms reported Skin: no symptoms reported Psychiatric/Neurological: No Symptoms Reported Hematologic/Lymphatic: No Symptoms Reported Past Shoujxv-Fwmuah-Yewyid Hx Patient Social History Recent Hopitalizations: Yes Immunizations Up To Date Tetanus Booster (TDap): Unknown PED Vaccines UTD: Yes Date of Pneumonia Vaccine: Feb 04, 2011 Date of Influenza Vaccine: Jun 08, 2017 Seasonal Allergies Seasonal Allergies: Yes Surgeries History of Surgeries: Yes (gallbladder, hiatal hernia, back and eye surgery) Surgeries: Abdominal, Appendectomy, Arteriovenous Shunt, Cardiac, Coronary Stent, Dialysis, Eye Surgery, Gallbladder, Hysterectomy, Oophorectomy, Orthopedic, Vascular Surgery Respiratory History of Respiratory Disorde: Yes Respiratory Disorders: Asthma, COPD Currently Using CPAP: No Currently Using BIPAP: No Cardiovascular History of Cardiac Disorders: Yes Cardiac Disorders: Coronary Artery Disease, Hypertension Neurological History of Neurological Disord: Yes Neurological Disorders: Stroke Reproductive System Hx Reproductive Disorders: Yes Sexually Transmitted Disease: No HIV/AIDS: No [facility] OFFICIAL History: Hysterectomy Genitourinary History of Genitourinary Disor: No Genitourinary Disorders: Renal Failure, Dialysis Gastrointestinal History of Gastrointestinal Di: Yes (SPASTIC COLON) Gastrointestinal Disorders: Gastroesophageal Reflux, Diverticulosis, Pancreatitis Musculoskeletal History of Musculoskeletal Dis: Yes (SCIATICA CHRONIC, RIGHT ARM FX 2015- CHRONIC RIGHT ARM PAIN ) Musculoskeletal Disorders: Arthritis, Fibromyalgia, Chronic Back Pain, Fractures Endocrine History of Endocrine Disorders: Yes Endocrine Disorders: Diabetes, Insulin dep, Hypothyroidsim HEENT HEENT Disorders: Cataract Cancer History of Cancer: No Psychosocial History of Psychiatric Problem: Yes (PANIC ATTACKS) Behavioral Health Disorders: Anxiety Integumentary History of Skin or Integumenta: Yes (HX MRSA ) Blood Transfusions History of Blood Disorders: Yes (being treated by dr. rogel for low blood counts /ANEMIA) Adverse Reaction to a Blood Tr: No (does not want to receieve blood products) Family Medical History Family Medial History: Cancer 03 MOTHER (OVARIAN CANCER) Congestive heart failure 09 BROTHER ( OF CHF) DVT 09 SISTER FH: COPD (chronic obstructive pulmonary disease) 09 SISTER FH: bipolar disorder 09 BROTHER FH: emphysema 03 FATHER FHx: multiple sclerosis 09 BROTHER Family history: Cardiovascular disease 03 FATHER, Onset:Unknown Family history: Diabetes mellitus 03 MOTHER 09 BROTHER Family history: Hypertension 09 SISTER (ACTUALLY HAS LOW BLOOD PRESSURE NOT HIGH) Physical Exam Vital Signs Vital Sign - Last 12Hours 04/29/17 15:45 Temp 98.6 Pulse 69 Resp 18 B/P (MAP) 185/87 Pulse Ox 99 Capillary Refill : General Appearance: No Apparent Distress, WD/WN Eyes: Bilateral Eye Normal Inspection, Bilateral Eye PERRL, Bilateral Eye EOMI HEENT: PERRL/EOMI, TMs Normal Respiratory: Normal Breath Sounds, No Accessory Muscle Use, No Respiratory Distress Cardiovascular: Regular Rate, Rhythm, Normal Peripheral Pulses Neurologic/Psychiatric: Alert, Oriented x3 Skin: Normal Color, Warm/Dry Progress/Results/Core Measures Results/Orders Lab Results Laboratory Tests Test 04/29/17 16:25 04/29/17 16:50 Range/Units White Blood Count 4.2 L 4.3-11.0 10^3/uL Red Blood Count 3.89 L 4.35-5.85 10^6/uL Hemoglobin 12.1 11.5-16.0 G/DL Hematocrit 36 35-52 % Mean Corpuscular Volume 94 80-99 FL Mean Corpuscular Hemoglobin 31 25-34 PG Mean Corpuscular Hemoglobin Concent 33 32-36 G/DL Red Cell Distribution Width 13.2 10.0-14.5 % Platelet Count 101 L 130-400 10^3/uL Mean Platelet Volume 9.9 7.4-10.4 FL Neutrophils (%) (Auto) 75 42-75 % Lymphocytes (%) (Auto) 15 12-44 % Monocytes (%) (Auto) 7 0-12 % Eosinophils (%) (Auto) 3 0-10 % Basophils (%) (Auto) 1 0-10 % Neutrophils # (Auto) 3.1 1.8-7.8 X 10^3 Lymphocytes # (Auto) 0.6 L 1.0-4.0 X 10^3 Monocytes # (Auto) 0.3 0.0-1.0 X 10^3 Eosinophils # (Auto) 0.1 0.0-0.3 10^3/uL Basophils # (Auto) 0.0 0.0-0.1 10^3/uL Sodium Level 137 135-145 MMOL/L Potassium Level 4.6 3.6-5.0 MMOL/L Chloride Level 101 98-107 MMOL/L Carbon Dioxide Level 27 21-32 MMOL/L Anion Gap 9 5-14 MMOL/L Blood Urea Nitrogen 24 H 7-18 MG/DL Creatinine 2.65 H 0.60-1.30 MG/DL Estimat Glomerular Filtration Rate 18 BUN/Creatinine Ratio 9 Glucose Level 248 H 70-105 MG/DL Calcium Level 8.8 8.5-10.1 MG/DL Total Bilirubin 0.4 0.1-1.0 MG/DL Aspartate Amino Transf (AST/SGOT) 25 5-34 U/L Alanine Aminotransferase (ALT/SGPT) 9 0-55 U/L Alkaline Phosphatase 131 40-136 U/L Total Protein 6.5 6.4-8.2 GM/DL Albumin 3.2 3.2-4.5 GM/DL Troponin I < 0.30 <0.30 NG/ML My Orders Orders - URBAN JOHNSON APRN Ekg Tracing (04/29/17 15:50) Cbc With Automated Diff (04/29/17 15:52) Comprehensive Metabolic Panel (04/29/17 15:52) Saline Lock/Iv-Start (04/29/17 15:52) Chest 1 View, Ap/Pa Only (04/29/17 16:01) Troponin I (04/29/17 16:46) Lorazepam Injection (Ativan Injection) (04/29/17 17:30) Ekg Tracing (04/29/17 18:47) Troponin I (04/29/17 18:47) Medications Given in ED Current Medications Medications Dose Ordered Sig/Adela Route Start Time Stop Time Status Last Admin Dose Admin Lorazepam 0.5 mg ONCE ONCE IVP 04/29/17 17:30 04/29/17 17:31 DC 04/29/17 17:50 0.5 MG Vital Signs/I&O Vital Sign - Last 12Hours 04/29/17 15:45 Temp 98.6 Pulse 69 Resp 18 B/P (MAP) 185/87 Pulse Ox 99 Diagnostic Imaging Diagonstic Imaging: Xray Plain Films/CT/US/NM/MRI: chest Comments NAME: [facility] REC#: [id number] PT STATUS: REG ER : 1950 PHYSICIAN: URBAN JOHNSON APRN ADMIT DATE: 04/29/17/ER Draft Date of Exam:04/29/17 CHEST 1 VIEW, AP/PA ONLY INDICATION: Chest pain EXAM: Frontal chest obtained at 4:19 hours p.m. COMPARISON with 04/01/17 FINDINGS: There is cardiomegaly. There is no change in the dialysis catheter compared to the prior study. There is mild central vascular prominence with no new infiltrate or pneumothorax or pleural fluid. Left-sided Port-A-Cath is unchanged. IMPRESSION: Prominent cardiomegaly with no change in dialysis catheter or Port-A-Cath. There is no new infiltrate or pneumothorax or pleural fluid. There is mild central vascular prominence. Dictated on workstation # [id number] Dict: 04/29/17 1623 Trans: 04/29/17 1635 [facility] [id number] Interpreted by: RM ABRAMS MD Electronically signed by: Departure Communication Progress Notes Please see the attached records from [facility] in her most recent visit which influenced decision making in this patient's case. She continues to rate her pain at 10 out of 10 though her blood pressure has dropped and she is talking on the phone to family. She has a fentanyl patch on which she states she takes for fibromyalgia. Her EKG is unchanged from prior and her initial troponin is negative. We will repeat a troponin and it still negative discharged home. She's had multiple cardiac workups for this pain. She has requested IV pain medication multiple times during her stay. She begins crying when I enter the room and stops and begins talking on the phone when I leave. 1932- chest pain is still present but better after the IV lorazepam. Blood pressure is down to 130 systolic. Repeat EKG is unchanged. If troponin remains normal we will discharge her to home. Impression Impression: Primary Impression: Anxiety Additional Impressions: End stage renal disease on dialysis Chest wall pain Disposition: HOME, SELF-CARE Condition: Stable Departure-Patient Inst. Referrals: ISABEL HUMPHREYS MD (PCP/Family) Primary Care Physician URBAN JOHNSON APRN Apr 29, 2017 16:03
--- OUTSIDE RECORDS SUMMARY | 2017-04-29 16:18 | XMS REPORT | Continuity of Care Document ---
Author Author Counts Include [facility] At [facility] Address Unknown Phone Unavailable Allergies Active Description Code Type Severity Reaction Onset Reported/Identified Relationship to Patient Clinical Status Yes acetaminophen [id number] Drug Allergy Mild DIZZINESS 02/20/2014 Yes propoxyphene [id number] Drug Allergy Mild DIZZINESS 02/20/2014 Yes codeine [id number] Drug Allergy Unknown CAN TAKE OXYCOD 02/20/2014 Yes esomeprazole [id number] Drug Allergy Unknown N/A 02/20/2014 Yes ketorolac [id number] Drug Allergy Unknown PT TAKES ASPIRI 02/20/2014 Yes levofloxacin [id number] Drug Allergy Unknown N/A 02/20/2014 Yes promethazine [id number] Drug Allergy Unknown N/A 02/20/2014 Yes TAPE [...] E11.22 TYPE 2 DIABETES MELLITUS W DIABETIC ALLIGATOR TRAPPER 08/05/1501 MALVIN PAYAN MD Ot E66.01 MORBID (SEVERE) OBESITY DUE TO EXCESS CA 08/05/1501 MALVIN PAYAN MD, Ot E83.42 HYPOMAGNESEMIA 08/05/1501 MALVIN PAYAN MD, Ot F32.9 MAJOR DEPRESSIVE DISORDER, SINGLE EPISOD 08/05/1501 MALVIN PAYAN MD, Ot F41.9 ANXIETY DISORDER, UNSPECIFIED 08/05/1501 ORA MD, MALVIN K Ot I12.9 HYPERTENSIVE CHRONIC KIDNEY DISEASE W ST 08/05/1501 MALVIN PAYAN MD Ot I25.10 ATHSCL HEART DISEASE OF [place] CORONARY 08/05/1501 MALVIN PAYAN MD Ot I65.23 OCCLUSION AND STENOSIS OF BILATERAL [place] 08/05/1501 MALVIN PAYAN MD Ot N18.9 CHRONIC KIDNEY DISEASE, UNSPECIFIED 08/05/1501 MALVIN PAYAN MD Ot Z68.41 BODY MASS INDEX (BMI) 40.0-44.9, ADULT 08/05/1501 MALVIN PAYAN MD Ot Z79.4 TOMBSTONE ERECTOR (CURRENT) USE OF INSULIN 08/05/1501 MALVIN PAYAN MD, Ot Z79.899 OTHER USP (CURRENT) DRUG THERAPY 11/04/2009 JURGEN CASTORENA LCPC [...] LCPC 300.00 AN ANXIETY UNSPEC 02/06/2010 [facility]IA [facility], KAREN R 300.00 AN ANXIETY UNSPEC 02/06/2010 [facility], JURGEN B 300.00 AN ANXIETY UNSPEC 02/06/2010 [facility].00 AN ANXIETY UNSPEC 02/06/2010 [...] NOS 07/26/2011 Ot 414.01 CORONARY ATHEROSCLEROSIS OF [place] CORON 07/26/2011 Ot 496 CHR AIRWAY OBSTRUCT [...] NOS 01/10/2012 Ot 414.01 CORONARY ATHEROSCLEROSIS OF [place] CORON 01/10/2012 Ot 530.81 ESOPHAGEAL REFLUX 01/10/2012 [...] NOS 02/23/2012 Ot 414.01 CORONARY ATHEROSCLEROSIS OF [place] CORON 02/23/2012 Ot 789.09 ABDOMINAL PAIN, OTHER [...] STRIKING OBJECT NEC 03/02/2013 ISABEL HUMPHREYS MD R Ot 041.12 METHICILLIN RESISTANT STAPHYLOCOCCUS AUR 03/02/2013 ISABEL HUMPHREYS MD R Ot 250.00 DIAB AMBAR WO COMPL, TYPE II OR UNSPEC TY 03/02/2013 ISABEL HUMPHREYS MD R Ot 360.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9 ABN URINE FINDINGS NEC 04/17/2013 JESSIKA DO, ANNE MARIE K Ot V12.54 PERSONAL HX OF TIA, CEREBRAL INFARCTION 04/27/2013 ISABEL HUMPHREYS MD R Ot 250.02 DIAB AMBAR WO COMPL, TYPE II OR UNSPEC TY 04/27/2013 ISABEL HUMPHREYS MD R Ot 278.00 OBESITY, NOS 04/27/2013 ISABEL HUMPHREYS MD R Ot 285.9 ANEMIA NOS 04/27/2013 ISABEL HUMPHREYS MD R Ot 401.9 HYPERTENSION NOS 04/27/2013 ISABEL HUMPHREYS MD R Ot 493.20 CHRONIC OBSTRUCTIVE ASTHMA, NOS 04/27/2013 ISABEL HUMPHREYS MD R Ot 729.1 MYALGIA AND MYOSITIS NOS 04/27/2013 ISABEL HUMPHREYS MD Ot 780.4 DIZZINESS AND GIDDINESS 04/27/2013 ISABEL HUMPHREYS MD R Ot 787.02 NAUSEA ALONE 04/27/2013 ISABEL HUMPHREYS MD R Ot 787.91 DIARRHEA 04/27/2013 ISABEL HUMPHREYS MD R Ot 789.00 ABDOMINAL PAIN, UNSPECIFIED SITE 04/27/2013 ISABEL HUMPHREYS MD Ot V85.37 BODY MASS INDEX 37.0-37.9, ADULT 09/09/2013 ISABEL HUMPHREYS MD R Ot 041.04 STREPTOCOCCUS INFECTION NOS, GROUP D [...] OLD MYOCARDIAL INFARCT 09/09/2013 ISABEL HUMPHREYS MD Ot 414.01 CORONARY ATHEROSCLEROSIS OF [place] CORON 09/09/2013 ISABEL HUMPHREYS MD R Ot [...] 285.21 ANEMIA IN CHRONIC KIDNEY DISEASE 02/09/2014 ISABEL HUMPHREYS MD R Ot 300.00 ANXIETY STATE NOS 02/09/2014 ISABEL HUMPHREYS MD R Ot 311 DEPRESSIVE DISORDER NEC 02/09/2014 ISABEL HUMPHREYS MD Ot 403.90 HYPTNSV CHR KID DIS, UNSPEC, W CHR KD ST 02/09/2014 ISABEL HUMPHREYS MD, Ot 414.01 CORONARY ATHEROSCLEROSIS OF [place] CORON 02/09/2014 ISABEL HUMPHREYS MD Ot 433.10 [...] V12.51 HX-VENOUS THROMBOSIS EMBOLISM 02/09/2014 ISABEL HUMPHREYS MD Ot V45.82 PERCUTANEOUS TRANSLUM CORON ANGIOPLASTY 02/09/2014 ISABEL HUMPHREYS MD, Ot V58.67 LONG-TERM (CURRENT) USE OF INSULIN 02/23/2014 ISABEL HUMPHREYS MD Ot 244.9 HYPOTHYROIDISM NOS 02/23/2014 ISABEL HUMPHREYS MD Ot 250.40 DIAB W RENAL MANIFEST, TYPE II OR UNSPEC 02/23/2014 IASBEL HUMPHREYS MD Ot 250.60 DIAB W NEURO MANIFEST, TYPE II OR UNSPEC 02/23/2014 ISABEL HUMPHREYS MD R Ot 285.9 ANEMIA NOS 02/23/2014 ISABEL HUMPHREYS MD Ot 311 DEPRESSIVE DISORDER NEC 02/23/2014 ISABEL HUMPHREYS MD Ot 357.2 NEUROPATHY IN DIABETES 02/23/2014 ISABEL [...] AND MYOSITIS NOS 02/23/2014 ISABEL HUMPHREYS MD Ot 782.3 EDEMA 05/10/2014 JURGEN CASTORENA LCPC B 311 DEPRESSIVE DISORDER NOS 05/10/2014 SOPHIA LSCS, [...] 789.09 ABDOMINAL PAIN, OTHER SPECIFIED SITE 05/27/2014 MALVIN PAYAN MD Ot 244.9 HYPOTHYROIDISM NOS 05/27/2014 MALVIN PAYAN MD Ot 250.00 DIAB AMBAR WO COMPL, TYPE II OR UNSPEC TY 05/27/2014 MALVIN PAYAN MD Ot 272.4 HYPERLIPIDEMIA NEC/NOS 05/27/2014 MALVIN PAYAN MD Ot 273.8 DIS PLAS PROTEIN MET NEC 05/27/2014 MALVIN PAYAN MD Ot 285.9 ANEMIA NOS 05/27/2014 ORA MARSH, MALVIN Darden Ot 300.00 ANXIETY STATE NOS 05/27/2014 ORA MARSH, MALVIN Darden Ot 403.90 HYPTNSV CHR KID DIS, UNSPEC, W CHR KD ST 05/27/2014 MALVIN PAYAN MD Ot 433.10 CAROTID ARTERY OCCLUSION W O CEREBRAL IN 05/27/2014 MALVIN PAYAN MD Ot 585.9 CHRONIC KIDNEY DISEASE, UNSPECIFIED 05/27/2014 MALVIN PAYAN MD Ot V12.54 PERSONAL HX [...] INFARCT,IN 11/06/2014 Ot 414.01 CORONARY ATHEROSCLEROSIS OF [place] CORON 11/06/2014 Ot 427.31 ATRIAL FIBRILLATION 11/06/2014 [...] MD R Ot 414.01 CORONARY ATHEROSCLEROSIS OF [place] CORON 11/26/2014 ISABEL HUMPHREYS MD R Ot [...] MARSH, ISABEL R Ot 272.4 12/13/2014 JULIANN MARSH, ISABEL R Ot 285.21 12/13/2014 JULIANN MARSH, [...] MARSH, MALVIN Darden Ot 585.4 12/31/2014 ORA MARSH, MALVIN Darden Ot 585.9 12/31/2014 ORA MARSH, MALVIN Darden Ot V12.54 12/31/2014 ORA MARSH, MALVIN Darden Ot V58.69 02/13/2015 ORA MARSH, MALVIN Darden Ot 244.9 HYPOTHYROIDISM NOS 02/13/2015 ORA MARSH, MALVIN Darden Ot 250.00 DIAB AMBAR WO COMPL, TYPE II OR UNSPEC TY 02/13/2015 MALVIN PAYAN MD Ot 272.4 HYPERLIPIDEMIA NEC/NOS 02/13/2015 ORA MARSH, MALVIN Darden Ot 273.8 DIS PLAS PROTEIN MET NEC 02/13/2015 ORA MARSH, MALVIN Darden Ot 285.21 ANEMIA IN CHRONIC KIDNEY DISEASE 02/13/2015 ORA MARSH, MALVIN Darden Ot 300.00 ANXIETY STATE NOS 02/13/2015 ORA MARSH, MALVIN Darden Ot 403.90 HYPTNSV CHR KID DIS, UNSPEC, W CHR KD ST 02/13/2015 ORA MARSH, MALVIN Darden Ot 433.10 CAROTID ARTERY OCCLUSION W O CEREBRAL IN 02/13/2015 ORA MARSH, MALVIN Darden Ot 585.4 CHRONIC KIDNEY DISEASE, STAGE IV [...] K Ot 433.10 02/20/2015 ORA MARSH, MALVIN Adelso Ot 585.4 02/20/2015 ORA MARSH, MALVIN Adelso Ot 585.9 02/20/2015 ORA MARSH, MALVIN Adelso Ot V12.54 02/20/2015 ORA MARSH, MALVIN K [...] ISABEL R Ot 311 03/11/2015 MARIBELL MARAVILLA TELEPHOTO ENGINEER Ot 790.6 03/11/2015 JULIANN MARSH, ISABEL R Ot 285.9 03/11/2015 JULIANN MARSH, ISABEL R Ot 460 03/11/2015 MARIBELL MARAVILLA L TELEPHOTO ENGINEER Ot 272.4 03/11/2015 MARIBELL MARAVILLA L TELEPHOTO ENGINEER Ot 401.9 03/11/2015 MARIBELL MARAVILLA L TELEPHOTO ENGINEER Ot 414.00 03/11/2015 JULIANN MARSH, ISABEL R [...] K Ot 403.90 03/27/2015 ORA MARSH, MALVIN K Ot 433.10 03/27/2015 ORA MARSH, MALVIN K [...] INSULIN 04/19/2015 GUMARO HEBERT MD Ot V58.69 OT MED,LT,CURRENT USE 04/25/2015 NICOLETTE MARSH, DULCE Ot [...] MARSH, ISABEL R Ot 311 04/26/2015 MARIBELL MAARVILLA TELEPHOTO ENGINEER Ot 790.6 04/26/2015 JULIANN MARSH, ISABEL R Ot 285.9 04/26/2015 JULIANN MARSH, ISABEL R Ot 460 04/26/2015 MARIBELL MARAVILLA TELEPHOTO ENGINEER Ot 272.4 04/26/2015 MARIBELL MARAVILLA TELEPHOTO ENGINEER Ot 401.9 04/26/2015 ELONIDES MARAVILLAHER Dustin TELEPHOTO ENGINEER Ot 414.00 04/26/2015 JULIANN MARSH, ISABEL R Ot 348.89 04/26/2015 JULIANN MARSH, ISABEL R Ot 437.1 04/26/2015 JULIANN [...] PAYAN MD, Ot V58.69 05/24/2015 MALVIN PAYAN MD, Ot 244.9 05/24/2015 MALVIN PAYAN MD Ot 250.00 05/24/2015 MALVIN PAYAN MD Ot 272.4 05/24/2015 MALVIN PAYAN MD Ot 273.8 05/24/2015 MALVIN PAYAN MD Ot 285.21 05/24/2015 MALVIN PAYAN MD Ot 300.00 05/24/2015 MALVIN PAYAN MD Ot [...] V58.69 OTH MED,LT,CURRENT USE 06/05/2015 MALVIN PAYAN MD Ot V58.81 FIT/ADJ VASCULAR CATHETER 06/11/2015 MALVIN PAYAN MD Ot 244.9 06/11/2015 ORA MARSH, MALVIN K Ot 250.00 06/11/2015 ORA MARSH, MALVIN Darden Ot 272.4 06/11/2015 ORA MARSH, MALVIN Darden Ot 273.8 06/11/2015 ORA MARSH, MALVIN K Ot 285.21 06/11/2015 ORA MARSH, MALVIN Darden Ot 300.00 06/11/2015 ORA MARSH, MALVIN Darden Ot 403.90 06/11/2015 ORA MARSH, MALVIN Darden Ot 433.10 06/11/2015 ORA MARSH, MALVIN Darden Ot 585.4 06/11/2015 ORA MARSH, MALVIN Darden Ot V12.54 06/11/2015 OAR MARSH, MALVIN Darden Ot V58.69 06/11/2015 ORA MARSH, MALVIN Darden Ot V58.81 06/13/2015 Ot 414.01 06/13/2015 Ot 272.4 06/13/2015 Ot V58.69 06/13/2015 Ot 414.00 06/13/2015 JULIANN MARSH, ISABEL R Ot 300.00 06/13/2015 JULIANN MARSH, ISABEL R Ot 311 06/13/2015 MARIBELL MARAVILLA TELEPHOTO ENGINEER Ot 790.6 06/13/2015 JULIANN MARSH, ISABEL R Ot 285.9 06/13/2015 JULIANN MARSH, ISABEL R Ot 460 06/13/2015 MARIBELL MARAVILLA TELEPHOTO ENGINEER Ot 272.4 06/13/2015 MARIBELL MARAVILLA TELEPHOTO ENGINEER Ot 401.9 06/13/2015 MARIBELL MARAVILLA TELEPHOTO ENGINEER Ot 414.00 06/13/2015 JULIANN MARSH, ISABEL R [...] Darden Ot E03.9 06/13/2015 ORA MARSH, MALVIN Darden Ot E11.22 06/13/2015 ORA MARSH, MALVIN Darden Ot E66.01 06/13/2015 ORA MARSH, MALVIN K Ot E83.42 06/13/2015 ORA MARSH, MALVIN K Ot F32.9 06/13/2015 ORA MARSH, MALVIN K Ot F41.9 06/13/2015 ORA MARSH, MALVIN K Ot I12.9 06/13/2015 ORA MARSH, MALVIN K Ot I25.10 06/13/2015 ORA MARSH, MALVIN K Ot I65.23 06/13/2015 ORA MARSH, MALVIN K Ot N18.9 06/13/2015 ORA MARSH, MALVIN Darden Ot Z68.41 06/13/2015 ORA MARSH, MALVIN Darden Ot Z79.4 06/13/2015 ORA MARSH, MALVIN Darden Ot Z79.899 06/14/2015 JULIANN MARSH, ISABEL Zaidi Ot E03.9 HYPOTHYROIDISM, UNSPECIFIED 06/14/2015 JULIANN MARSH, ISABEL Zaidi Ot E11.9 TYPE 2 DIABETES MELLITUS WITHOUT COMPLIC 06/14/2015 JULIANN MARSH, ISABEL Zaidi Ot E78.5 HYPERLIPIDEMIA, UNSPECIFIED 06/14/2015 JULIANN MARSH, ISABEL R Ot I12.9 HYPERTENSIVE CHRONIC KIDNEY DISEASE W ST 06/14/2015 JULIANN MARSH, ISBAEL R Ot I25.10 ATHSCL HEART DISEASE OF [place] CORONARY 06/14/2015 JULIANN MARSH, ISABEL Zaidi Ot I25.2 OLD MYOCARDIAL INFARCTION 06/14/2015 JULIANN MARSH, ISABEL Zaidi Ot N18.4 CHRONIC KIDNEY DISEASE, STAGE 4 (SEVERE) 06/14/2015 ISABEL HUMPHREYS MD Ot R00.2 PALPITATIONS 06/14/2015 JULIANN MARSH, ISABEL Zaidi Ot R07.9 CHEST PAIN, UNSPECIFIED 06/14/2015 JULIANN MARSH, ISABEL Zaidi Ot Z79.4 TOMBSTONE ERECTOR (CURRENT) USE OF INSULIN 07/15/2015 ORA MARSH, [...] ORA MARSH, MALVIN Darden Ot N18.9 07/15/2015 ORA MARSH, MALVIN Darden Ot Z68.41 07/15/2015 ORA MARSH, MALVIN Darden Ot Z79.4 07/15/2015 ORA MARSH, MALVIN Darden Ot Z79.899 07/15/2015 Ot 414.01 07/15/2015 Ot 272.4 07/15/2015 Ot V58.69 07/15/2015 Ot 414.00 07/15/2015 JULIANN MARSH, ISABEL R Ot 300.00 07/15/2015 JULIANN MARSH, ISABEL R Ot 311 07/15/2015 MARIBELL MARAVILLA TELEPHOTO ENGINEER Ot 790.6 07/15/2015 JULIANN MARSH, ISABEL R Ot 285.9 07/15/2015 JULIANN MARSH, ISABEL R Ot 460 07/15/2015 MARIBELL MARAVILLA TELEPHOTO ENGINEER Ot 272.4 07/15/2015 MARIBELL MARAVILLA TELEPHOTO ENGINEER Ot 401.9 07/15/2015 MARIBELL MARAVILLA TELEPHOTO ENGINEER Ot 414.00 07/15/2015 JULIANN MARSH, ISABEL R [...] MARSH, MALVIN Darden Ot I65.23 08/06/2015 ORA MARHS, MALVIN Darden Ot N18.9 08/06/2015 ORA MARSH, MALVIN Darden Ot Z68.41 08/06/2015 ORA MARSH, MALVIN Darden Ot Z79.4 08/06/2015 ORA MARSH, MALVIN Darden Ot Z79.899 08/06/2015 Ot 414.01 08/06/2015 Ot 272.4 08/06/2015 Ot V58.69 08/06/2015 Ot 414.00 08/06/2015 JULIANN MARSH, ISABEL R Ot 300.00 08/06/2015 JULIANN MARSH, ISABEL R Ot 311 08/06/2015 MARIBELL MARAVILLA TELEPHOTO ENGINEER Ot 790.6 08/06/2015 JULIANN MARSH, ISABEL R Ot 285.9 08/06/2015 JULIANN MARSH, ISABEL R Ot 460 08/06/2015 MARIBELL MARAVILLA TELEPHOTO ENGINEER Ot 272.4 08/06/2015 MARIBELL MARAVILLA TELEPHOTO ENGINEER Ot 401.9 08/06/2015 MARIBELL MARAVILLA TELEPHOTO ENGINEER Ot 414.00 08/06/2015 JULIANN MARSH, ISABEL R [...] ISABEL R Ot 311 09/02/2015 MARIBELL MARAVILLA TELEPHOTO ENGINEER Ot 790.6 09/02/2015 JULIANN MARSH, ISABEL R Ot 285.9 09/02/2015 JULIANN MARSH, ISABEL R Ot 460 09/02/2015 MARIBELL MARAVILLA TELEPHOTO ENGINEER Ot 272.4 09/02/2015 MARIBELL MARAVILLA TELEPHOTO ENGINEER Ot 401.9 09/02/2015 MARIBELL MARAVILLA TELEPHOTO ENGINEER Ot 414.00 09/02/2015 JULIANN MARSH, ISABEL R [...] K Ot E03.9 09/02/2015 ORA MARSH, MALVIN K Ot E11.22 09/02/2015 ORA MARSH, MALVIN K Ot E66.01 09/02/2015 ORA MARSH, MALVIN K Ot E83.42 09/02/2015 ORA MARSH, MALVIN K Ot F32.9 09/02/2015 ORA MARSH, MALVIN K Ot F41.9 09/02/2015 ORA MARSH, MALVIN K Ot I12.9 09/02/2015 ORA MARSH, MALVIN K Ot I25.10 09/02/2015 ORA MARSH, MALVIN K Ot I65.23 09/02/2015 ORA MARSH, MALVIN K Ot N18.9 09/02/2015 ORA MARSH, MALVIN K Ot Z68.41 09/02/2015 ORA MARSH, MALVIN Adelso Ot Z79.4 09/02/2015 ORA MARSH, MALVIN K Ot Z79.899 09/04/2015 ORA MARSH, MALVIN Adelso Ot 244.9 HYPOTHYROIDISM NOS 09/04/2015 ORA MARSH, MALVIN Darden Ot 250.40 DIAB W RENAL MANIFEST, TYPE II OR UNSPEC 09/04/2015 MALVIN PAYAN MD, Ot 275.2 DIS MAGNESIUM METABOLISM 09/04/2015 MALVIN PAYAN MD, Ot 278.01 MORBID OBESITY 09/04/2015 MALVIN PAYAN MD, Ot 285.21 ANEMIA IN CHRONIC KIDNEY DISEASE 09/04/2015 MALVIN PAYAN MD, Ot 300.00 ANXIETY STATE NOS 09/04/2015 MALVIN PAYAN MD, Ot 433.10 CAROTID ARTERY OCCLUSION W O CEREBRAL IN 09/04/2015 MALVIN PAYAN MD Ot 585.9 CHRONIC KIDNEY DISEASE, UNSPECIFIED 09/04/2015 MALVIN PAYAN MD, Ot D63.1 ANEMIA IN CHRONIC KIDNEY DISEASE 09/04/2015 MALVIN PAYAN MD, Ot E03.9 HYPOTHYROIDISM, UNSPECIFIED 09/04/2015 MALVIN PAYAN MD, Ot E11.22 TYPE 2 DIABETES MELLITUS W DIABETIC ALLIGATOR TRAPPER 09/04/2015 MALVIN PAYAN MD, Ot E66.01 MORBID (SEVERE) OBESITY DUE TO EXCESS CA 09/04/2015 MALVIN PAYAN MD, Ot E83.42 HYPOMAGNESEMIA 09/04/2015 MALVIN PAYAN MD, Ot F32.9 MAJOR DEPRESSIVE DISORDER, SINGLE EPISOD 09/04/2015 MALVIN PAYAN MD, Ot F41.9 ANXIETY DISORDER, UNSPECIFIED 09/04/2015 MALVIN PAYAN MD, Ot I12.9 HYPERTENSIVE CHRONIC KIDNEY DISEASE W ST 09/04/2015 MALVIN PAYAN MD, Ot I25.10 ATHSCL HEART DISEASE OF [place] CORONARY 09/04/2015 MALVIN PAYAN MD, Ot I65.23 OCCLUSION AND [...] ADULT 09/04/2015 MALVIN PAYAN MD, Ot Z79.4 USP (CURRENT) USE OF INSULIN 09/04/2015 MALVIN PAYAN MD, Ot Z79.899 OTHER TOMBSTONE ERECTOR (CURRENT) DRUG THERAPY 09/09/2015 MALVIN PAYAN MD, Ot 244.9 09/09/2015 ORA MRASH, MALVIN K Ot 250.40 09/09/2015 ORA MARSH, MALVIN K Ot 275.2 09/09/2015 ORA MARSH, MALVIN K Ot 278.01 09/09/2015 ORA MARSH, MALVIN K Ot 285.21 09/09/2015 ORA MARSH, MALVIN K Ot 300.00 09/09/2015 ORA MARSH, MALVIN K Ot 433.10 09/09/2015 ORA MARSH, MALVIN K Ot 585.9 09/09/2015 ORA MARSH, MALVIN K Ot D63.1 09/09/2015 ORA MARSH, MALVIN K Ot E03.9 09/09/2015 ORA MARSH, MALVIN K Ot E11.22 09/09/2015 ORA MARSH, MALVIN K Ot E66.01 09/09/2015 ORA MARSH, MALVIN K Ot E83.42 09/09/2015 ORA MARSH, MALVIN K Ot F32.9 09/09/2015 ORA MARSH, MALVIN Darden Ot F41.9 09/09/2015 ORA MARSH, MALVIN Darden Ot I12.9 09/09/2015 ORA MARSH, MALVIN Darden Ot I25.10 09/09/2015 ORA MARSH, MALVIN K Ot I65.23 09/09/2015 ORA MARSH, MALVIN Darden Ot N18.9 09/09/2015 ORA MARSH, MALVIN K Ot V58.67 09/09/2015 ORA MARSH, MALVIN K Ot V58.69 09/09/2015 ORA MARSH, MALVIN Darden Ot V85.41 09/09/2015 ORA MARSH, MALVIN Darden Ot Z68.41 09/09/2015 ORA MARSH, MALVIN Darden Ot Z79.4 09/09/2015 ORA MARSH, MALVIN Darden Ot Z79.899 09/24/2015 ORA MARSH, MALVIN Darden Ot D63.1 09/24/2015 ORA MARSH, MALVIN Darden Ot E03.9 09/24/2015 ORA MARSH, MALVIN K Ot E11.22 09/24/2015 ORA MARSH, MALVIN K Ot E66.01 09/24/2015 ORA MARSH, MALVIN K Ot E83.42 09/24/2015 ORA MARSH, MALVIN K Ot F32.9 09/24/2015 ORA MARSH, MALVIN K Ot F41.9 09/24/2015 ORA MARSH, MALVIN K [...] JULIANN MARSH, ISABEL R Ot 311 10/22/2015 TAIWO MARIBELL L TELEPHOTO ENGINEER Ot 790.6 10/22/2015 JULIANN MARSH, ISABEL R Ot 285.9 10/22/2015 JULIANN MARSH, ISABEL R Ot 460 10/22/2015 LEONIDES MARAVILLAHER L TELEPHOTO ENGINEER Ot 272.4 10/22/2015 TAIWO MARIBELL L TELEPHOTO ENGINEER Ot 401.9 10/22/2015 TAIWO MARIBELL L TELEPHOTO ENGINEER Ot 414.00 10/22/2015 JULIANN MARSH, ISABEL R [...] R Ot 311 11/04/2015 JOSE ARMANDOMARIBELL SALEH TELEPHOTO ENGINEER Ot 790.6 11/04/2015 JULIANN MARSH, ISABEL R Ot 285.9 11/04/2015 JULIANN MARSH, ISABEL R Ot 460 11/04/2015 JOSE ARMANDOMARIBELL SALEH TELEPHOTO ENGINEER Ot 272.4 11/04/2015 TAIWOMARIBELL TELEPHOTO ENGINEER Ot 401.9 11/04/2015 JOSE ARMANDOMARIBELL SALEH L TELEPHOTO ENGINEER Ot 414.00 11/04/2015 JULIANN MARSH, ISABEL R [...] FACC, ALI FACP CCDS Ot I25.10 11/11/2015 [facility] FAC, ALI FACP CCDS Ot I65.23 11/11/2015 [facility], ALI FACP CCDS Ot I73.9 11/11/2015 [facility], ALI FACP CCDS Ot J44.9 11/11/2015 [facility], ALI FACP CCDS Ot N18.9 11/11/2015 [facility], ALI FACP CCDS Ot R00.2 11/11/2015 [facility], ALI FACP CCDS Ot D63.1 11/11/2015 [facility], ALI FACP CCDS Ot E11.9 11/11/2015 [facility], ALI FACP CCDS Ot I25.10 11/11/2015 [facility], ALI FACP CCDS Ot I65.23 11/11/2015 [facility], ALI FACP CCDS Ot I73.9 11/11/2015 [facility], ALI FACP CCDS Ot J43.8 11/11/2015 [facility], ALI FACP CCDS Ot R00.2 11/18/2015 Ot 414.01 11/18/2015 Ot 272.4 11/18/2015 Ot V58.69 11/18/2015 Ot 414.00 11/18/2015 JULIANN MARSH, ISABEL R Ot 300.00 11/18/2015 JULIANN MARSH, ISABEL R Ot 311 11/18/2015 MARIBELL MARAVILLA L TELEPHOTO ENGINEER Ot 790.6 11/18/2015 JULIANN MARSH, ISABEL R Ot 285.9 11/18/2015 JLUIANN MARSH, ISABEL R Ot 460 11/18/2015 MARIBELL MARAVILLA L TELEPHOTO ENGINEER Ot 272.4 11/18/2015 MARIBELL MARAVILLA L TELEPHOTO ENGINEER Ot 401.9 11/18/2015 MARIBELL MARAVILLA L TELEPHOTO ENGINEER Ot 414.00 11/18/2015 JULIANN MARSH, ISABEL R Ot 348.89 11/18/2015 JULIANN MARSH, ISABEL R Ot 437.1 11/18/2015 JULIANN MARSH, ISABLE R Ot 780.97 11/18/2015 JULIANN MARSH, ISABEL [...] MARSH, DULCE Ot 585.3 11/18/2015 ORA MARSH, MLAVIN Darden Ot D63.1 11/18/2015 ORA MARSH, MALVIN K [...] K Ot N18.9 11/18/2015 ORA MARSH, MALVIN K Ot Z68.41 11/18/2015 ORA MARSH, MALVIN K Ot Z79.4 11/18/2015 ORA MARSH, MALVIN K Ot Z79.899 11/18/2015 DAVE MARSH [facility], ALI FACP CCDS Ot E11.21 11/18/2015 DAVE MARSH FACC, ALI FACP CCDS Ot I25.10 11/18/2015 DAVE MARSH FAC, ALI FACP CCDS Ot I65.23 11/18/2015 DAVE MARSH FAC, ALI FACP CCDS Ot I73.9 11/18/2015 DAVE MARSH FAC, ALI FACP CCDS Ot J44.9 11/18/2015 DAVE MARSH [facility], ALI FACP CCDS Ot N18.9 11/18/2015 DAVE MARSH [facility], ALI FACP CCDS Ot R00.2 11/18/2015 DAVE MARSH [facility], ALI FACP CCDS Ot D63.1 11/18/2015 DAVE MARSH [facility], ALI FACP CCDS Ot E11.9 11/18/2015 DAVE MD [facility], ALI FACP CCDS Ot I25.10 11/18/2015 DAVE MARSH [facility], ALI FACP CCDS Ot I65.23 11/18/2015 DAVE MARSH [facility], ALI FACP CCDS Ot I73.9 11/18/2015 DAVE MD [facility], ALI FACP CCDS Ot J43.8 11/18/2015 DAVE MARSH [facility], ALI FACP CCDS Ot R00.2 11/18/2015 JULIANN [...] E11.22 TYPE 2 DIABETES MELLITUS W DIABETIC ALLIGATOR TRAPPER 12/04/2015 MALVIN PAYAN MD Ot E66.01 MORBID (SEVERE) OBESITY DUE TO EXCESS CA 12/04/2015 MALVIN PAYAN MD Ot E83.42 HYPOMAGNESEMIA 12/04/2015 MALVIN PAYAN MD Ot F32.9 MAJOR DEPRESSIVE DISORDER, SINGLE EPISOD 12/04/2015 MALVIN PAYAN MD Ot F41.9 ANXIETY DISORDER, UNSPECIFIED 12/04/2015 ORA MARSH, MALVIN Darden Ot I12.9 HYPERTENSIVE CHRONIC KIDNEY DISEASE W ST 12/04/2015 ORA MARSH, MALVIN Darden Ot I25.10 ATHSCL HEART DISEASE OF [place] CORONARY 12/04/2015 ORA MARSH, MALVIN Darden Ot I65.23 OCCLUSION AND STENOSIS OF BILATERAL [place] 12/04/2015 ORA MARSH, MALVIN Darden Ot N18.9 CHRONIC KIDNEY DISEASE, UNSPECIFIED 12/04/2015 ORA MARSH, MALVIN Darden Ot Z68.41 BODY MASS INDEX (BMI) 40.0-44.9, ADULT 12/04/2015 ORA MARSH, MALVIN Darden Ot Z79.4 USP (CURRENT) USE OF INSULIN 12/04/2015 ORA MARSH, MALVIN Darden Ot Z79.899 OTHER TOMBSTONE ERECTOR (CURRENT) DRUG THERAPY 12/12/2015 ORA MARSH, MALVIN Darden Ot D63.1 12/12/2015 ORA MARSH, MALVIN Darden Ot E03.9 12/12/2015 ORA MARSH, MALVIN Darden Ot E11.22 12/12/2015 ORA MARSH, MALVIN Darden Ot E66.01 12/12/2015 ORA MARSH, MALVIN Adelso Ot E83.42 12/12/2015 ORA MARSH, MALVIN Darden Ot F32.9 12/12/2015 ORA MARSH, MALVIN Adelso Ot F41.9 12/12/2015 ORA MARSH, MALVIN Darden [...] CCDS Ot I25.10 ATHSCL HEART DISEASE OF [place] CORONARY 12/24/2015 DAVE MARSH FACC, ALI FACP CCDS [...] UNSPECIFIED 01/14/2016 Ot 414.01 CORONARY ATHEROSCLEROSIS OF [place] CORON 01/14/2016 Ot 272.4 HYPERLIPIDEMIA NEC/NOS 01/14/2016 Ot V58.69 OTH MED,LT,CURRENT USE 01/14/2016 Ot 414.00 CORON ATHEROSCLER NOS TYPE VESSEL, NATIV 01/14/2016 ISABEL HUMPHREYS MD Ot 300.00 ANXIETY STATE NOS 01/14/2016 ISABEL HUMPHREYS MD Ot 311 DEPRESSIVE DISORDER NEC 01/14/2016 MARIBELL MARAVILLA TELEPHOTO ENGINEER Ot 790.6 ABN BLOOD CHEMISTRY NEC 01/14/2016 ISABEL HUMPHREYS MD Ot 285.9 ANEMIA NOS 01/14/2016 SEGLIE MD, ISABEL R Ot 460 ACUTE NASOPHARYNGITIS 01/14/2016 JOSE ARMANDOMARIBELL SALEH Dustin TELEPHOTO ENGINEER Ot 272.4 HYPERLIPIDEMIA NEC/NOS 01/14/2016 MARIBELL MARAVILLA TELEPHOTO ENGINEER Ot 401.9 HYPERTENSION NOS 01/14/2016 MARIBELL MARAVILLA TELEPHOTO ENGINEER Ot 414.00 CORON ATHEROSCLER NOS TYPE VESSEL, NATIV 01/14/2016 JULIANN MARSH, ISABEL R Ot 348.89 OTHER CONDITIONS OF BRAIN 01/14/2016 JONI HUMPHREYS MDYD R Ot 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 01/14/2016 JONI HUMPHREYS MDYD R Ot 780.97 ALTERED MENTAL STATUS 01/14/2016 [...] TYPE 2 DIABETES MELLITUS WITHOUT COMPLIC 01/14/2016 DAEV MARSH FACC, ALI FACP CCDS Ot E66.8 OTHER OBESITY 01/14/2016 DAVE MARSH FACC, ALI FACP CCDS Ot I10 ESSENTIAL (PRIMARY) HYPERTENSION 01/14/2016 DAVE MARSH FACC, ALI FACP CCDS Ot I25.10 ATHSCL HEART DISEASE OF [place] CORONARY 01/14/2016 DAVE MARSH FACC, ALI FACP CCDS Ot J43.8 OTHER EMPHYSEMA 01/14/2016 DULCE WILL MD Ot E11.9 TYPE 2 DIABETES MELLITUS WITHOUT COMPLIC 01/14/2016 DULCE WILL MD Ot E66.9 OBESITY, UNSPECIFIED 01/14/2016 DULCE WILL MD Ot I12.9 HYPERTENSIVE CHRONIC KIDNEY DISEASE W ST 01/14/2016 DULCE WILL MD Ot I25.10 ATHSCL HEART DISEASE OF [place] CORONARY 01/14/2016 DULCE WILL MD Ot J44.9 [...] CCDS Ot I25.10 ATHSCL HEART DISEASE OF [place] CORONARY 01/14/2016 DAVE MARSH FACC, ALI FACP [...] CCDS Ot I25.10 ATHSCL HEART DISEASE OF [place] CORONARY 01/14/2016 DAVE MARSH FACC, ALI FACP [...] E11.22 TYPE 2 DIABETES MELLITUS W DIABETIC ALLIGATOR TRAPPER 01/14/2016 MALVIN PAYAN MD Ot E66.01 MORBID (SEVERE) OBESITY DUE TO EXCESS CA 01/14/2016 MALVIN PAYAN MD Ot E83.42 HYPOMAGNESEMIA 01/14/2016 MALVIN PAYAN MD, Ot F32.9 MAJOR DEPRESSIVE DISORDER, SINGLE EPISOD 01/14/2016 MALVIN PAYAN MD Ot F41.9 ANXIETY DISORDER, UNSPECIFIED 01/14/2016 MALVIN PAYAN MD, Ot I12.9 HYPERTENSIVE CHRONIC KIDNEY DISEASE W ST 01/14/2016 MALVIN PAYAN MD, Ot I25.10 ATHSCL HEART DISEASE OF [place] CORONARY 01/14/2016 MALVIN PAYAN MD Ot I65.23 OCCLUSION AND STENOSIS OF [place]IL[place]AL [place] 01/14/2016 MALVIN PAYAN MD Ot N18.9 CHRONIC KIDNEY DISEASE, UNSPECIFIED 01/14/2016 MALVIN PAYAN MD Ot Z68.41 BODY MASS INDEX (BMI) 40.0-44.9, ADULT 01/14/2016 MALVIN PAYAN MD Ot Z79.4 TOMBSTONE ERECTOR (CURRENT) USE OF INSULIN 01/14/2016 MALVIN PAYAN MD Ot Z79.899 OTHER USP (CURRENT) DRUG THERAPY 01/14/2016 DULCE WILL MD [...] UNSPECIFIED 01/14/2016 Ot 414.01 CORONARY ATHEROSCLEROSIS OF [place] CORON 01/14/2016 Ot 272.4 HYPERLIPIDEMIA NEC/NOS 01/14/2016 Ot V58.69 OTH MED,LT,CURRENT USE 01/14/2016 Ot 414.00 CORON ATHEROSCLER NOS TYPE VESSEL, NATIV 01/14/2016 ISABEL HUMPHREYS MD R Ot 300.00 ANXIETY STATE NOS 01/14/2016 ISABEL HUMPHREYS MD R Ot 311 DEPRESSIVE DISORDER NEC 01/14/2016 MARIBELL MARAVILLA TELEPHOTO ENGINEER Ot 790.6 ABN BLOOD CHEMISTRY NEC 01/14/2016 ISABEL HUMPHREYS MD R Ot 285.9 ANEMIA NOS 01/14/2016 ISABEL HUMPHREYS MD R Ot 460 ACUTE NASOPHARYNGITIS 01/14/2016 MARIBELL MARAVILLA TELEPHOTO ENGINEER Ot 272.4 HYPERLIPIDEMIA NEC/NOS 01/14/2016 MARIBELL MARAVILLA L TELEPHOTO ENGINEER Ot 401.9 HYPERTENSION NOS 01/14/2016 MARIBELL MARAVILLA TELEPHOTO ENGINEER Ot 414.00 CORON ATHEROSCLER NOS TYPE VESSEL, [...] D63.1 ANEMIA IN CHRONIC KIDNEY DISEASE 01/14/2016 EARL ACOSTA MD, FACCP CCDS Ot E11.9 TYPE 2 DIABETES MELLITUS WITHOUT COMPLIC 01/14/2016 EARL ACOSTA MD, FACC FACP CCDS Ot E66.8 OTHER OBESITY 01/14/2016 EARL ACOSTA MD, FACC FACP CCDS Ot I10 ESSENTIAL (PRIMARY) HYPERTENSION 01/14/2016 EARL ACOSTA MD, FACC FACP CCDS Ot I25.10 ATHSCL HEART DISEASE OF [place] CORONARY 01/14/2016 EARL ACOSTA MD, FACC FACP CCDS Ot J43.8 OTHER EMPHYSEMA 01/14/2016 DULCE WILL MD Ot E11.9 TYPE 2 DIABETES MELLITUS WITHOUT COMPLIC 01/14/2016 DULCE WILL MD Ot E66.9 OBESITY, UNSPECIFIED 01/14/2016 NICOLETTE MARSH, DULCE Ot I12.9 HYPERTENSIVE CHRONIC KIDNEY DISEASE W ST 01/14/2016 NICOLETTE MARSH, DULCE Ot I25.10 ATHSCL HEART DISEASE OF [place] CORONARY 01/14/2016 NICOLETTE MARSH, DULCE Ot J44.9 CHRONIC OBSTRUCTIVE [...] CCDS Ot I25.10 ATHSCL HEART DISEASE OF [place] CORONARY 01/14/2016 DAVE MARSH FACC, EARL FACP CCDS Ot I65.23 OCCLUSION AND STENOSIS OF [place] 01/14/2016 DAVE MARSH FACC, ALI FACP CCDS Ot I73.9 PERIPHERAL VASCULAR DISEASE, UNSPECIFIED 01/14/2016 DAVE MARSH FACC, ALI FACP CCDS Ot J44.9 CHRONIC OBSTRUCTIVE PULMONARY DISEASE, U 01/14/2016 DAVE MARSH FACC, EARL FACP CCDS Ot N18.9 CHRONIC KIDNEY DISEASE, UNSPECIFIED 01/14/2016 DAVE MARSH FACC, ALI FACP CCDS Ot R00.2 PALPITATIONS 01/14/2016 DAVE MARSH FACC, ALI FACP CCDS Ot D63.1 ANEMIA IN CHRONIC KIDNEY DISEASE 01/14/2016 DAVE MARSH FACC, ALI FACP CCDS Ot E11.9 TYPE 2 DIABETES MELLITUS WITHOUT COMPLIC 01/14/2016 DAVE MARSH FACC, ALI FACP CCDS Ot I25.10 ATHSCL HEART DISEASE OF [place] CORONARY 01/14/2016 DAVE MARSH FACC, ALI FACP [...] E11.22 TYPE 2 DIABETES MELLITUS W DIABETIC ALLIGATOR TRAPPER 01/14/2016 MALVIN PAYAN MD Ot E66.01 MORBID (SEVERE) OBESITY DUE TO EXCESS CA 01/14/2016 MALVIN PAYAN MD Ot E83.42 HYPOMAGNESEMIA 01/14/2016 MALVIN PAYAN MD Ot F32.9 MAJOR DEPRESSIVE DISORDER, SINGLE EPISOD 01/14/2016 MALVIN PAYAN MD Ot F41.9 ANXIETY DISORDER, UNSPECIFIED 01/14/2016 MALVIN PAYAN MD Ot I12.9 HYPERTENSIVE CHRONIC KIDNEY DISEASE W ST 01/14/2016 MALVIN PAYAN MD Ot I25.10 ATHSCL HEART DISEASE OF [place] CORONARY 01/14/2016 MALVIN PAYAN MD Ot I65.23 OCCLUSION AND STENOSIS OF [place] 01/14/2016 MALVIN PAYAN MD Ot N18.9 CHRONIC KIDNEY DISEASE, UNSPECIFIED 01/14/2016 MALVIN PAYAN MD Ot Z68.41 BODY MASS INDEX (BMI) 40.0-44.9, ADULT 01/14/2016 MALVIN PAYAN MD Ot Z79.4 TOMBSTONE ERECTOR (CURRENT) USE OF INSULIN 01/14/2016 MALVIN PAYAN MD, Ot Z79.899 OTHER TOMBSTONE ERECTOR (CURRENT) DRUG THERAPY 01/14/2016 DULCE WILL MD, Ot I12.9 HYPERTENSIVE CHRONIC KIDNEY DISEASE [...] ISABEL R Ot E03.9 HYPOTHYROIDISM, UNSPECIFIED 01/17/2016 ISABEL HUMPHREYS MD R Ot E11.21 TYPE 2 DIABETES MELLITUS WITH DIABETIC N 01/17/2016 ISABEL HUMPHREYS MD R Ot F41.9 ANXIETY DISORDER, UNSPECIFIED 01/17/2016 ISABEL HUMPHREYS MD R Ot G47.33 OBSTRUCTIVE SLEEP APNEA (ADULT) (PEDIATR 01/17/2016 ISABEL HUMPHREYS MD R Ot I12.9 HYPERTENSIVE CHRONIC KIDNEY DISEASE W ST 01/17/2016 JULIANN MARSH, ISABEL R Ot I25.110 ATHSCL HEART DISEASE OF [place] COR ART W 01/17/2016 ISABEL HUMPHREYS MD R Ot I25.2 OLD MYOCARDIAL INFARCTION 01/17/2016 ISABEL HUMPHREYS MD R Ot I50.9 HEART FAILURE, UNSPECIFIED 01/17/2016 ISABEL HUMPHREYS MD R Ot I65.23 OCCLUSION AND STENOSIS OF [place] 01/17/2016 ISABEL HUMPHREYS MD R Ot J44.9 CHRONIC OBSTRUCTIVE PULMONARY DISEASE, U 01/17/2016 ISABEL HUMPHREYS MD Ot K21.9 GASTRO-ESOPHAGEAL REFLUX DISEASE WITHOUT 01/17/2016 ISABEL HUMPHREYS MD R Ot M79.7 FIBROMYALGIA 01/17/2016 ISABEL HUMPHREYS MD R Ot M79.89 OTHER SPECIFIED SOFT TISSUE DISORDERS 01/17/2016 ISABEL HUMPHREYS MD R Ot N17.9 ACUTE KIDNEY FAILURE, UNSPECIFIED 01/17/2016 ISABEL HUMPHREYS MD R Ot N18.4 CHRONIC KIDNEY DISEASE, STAGE 4 (SEVERE) 01/17/2016 ISABEL HUMPHREYS MD R Ot Z79.4 TOMBSTONE ERECTOR (CURRENT) USE OF INSULIN 01/17/2016 ISABEL HUMPHREYS [...] MD Ot I25.110 ATHSCL HEART DISEASE OF [place] COR ART W 01/18/2016 ISABEL HUMPHREYS MD R Ot I25.2 OLD MYOCARDIAL INFARCTION 01/18/2016 ISABEL [...] (SEVERE) 01/18/2016 ISABEL HUMPHREYS MD Ot Z79.4 USP (CURRENT) USE OF INSULIN 01/18/2016 ISABEL HUMPHREYS [...] MD Ot I25.110 ATHSCL HEART DISEASE OF [place] COR ART W 01/18/2016 ISABEL HUMPHREYS MD, [...] (SEVERE) 01/18/2016 ISABEL HUMPHREYS MD Ot Z79.4 USP (CURRENT) USE OF INSULIN 01/18/2016 ISABEL HUMPHREYS MD, Ot Z95.5 PRESENCE OF CORONARY ANGIOPLASTY IMPLANT 01/19/2016 ISABEL HUMPHREYS MD Ot E03.9 HYPOTHYROIDISM, UNSPECIFIED 01/19/2016 ISABEL HUMPHREYS MD Ot E11.21 TYPE 2 DIABETES MELLITUS WITH DIABETIC N 01/19/2016 SEGLIE MD, ISABEL R Ot F41.9 ANXIETY DISORDER, UNSPECIFIED 01/19/2016 ISABEL HUMPHREYS MD Ot G47.33 OBSTRUCTIVE SLEEP APNEA (ADULT) (PEDIATR 01/19/2016 ISABEL HUMPHREYS MD Ot I12.9 HYPERTENSIVE CHRONIC KIDNEY DISEASE W ST 01/19/2016 ISABEL HUMPHREYS MD Ot I25.110 ATHSCL HEART DISEASE OF [place] COR ART W 01/19/2016 ISABEL HUMPHREYS MD [...] Ot M79.7 FIBROMYALGIA 01/19/2016 ISABEL HUMPHREYS MD Ot M79.89 OTHER SPECIFIED SOFT TISSUE DISORDERS 01/19/2016 ISABEL HUMPHREYS MD Ot N17.9 ACUTE KIDNEY FAILURE, UNSPECIFIED 01/19/2016 ISABLE HUMPHREYS MD Ot N18.4 CHRONIC KIDNEY DISEASE, STAGE 4 (SEVERE) 01/19/2016 ISABEL HUMPHREYS MD Ot Z79.4 USP (CURRENT) USE OF INSULIN 01/19/2016 ISABEL HUMPHREYS [...] DISEASE W ST 01/20/2016 ISABEL HUMPHREYS MD R Ot I25.110 ATHSCL HEART DISEASE OF [place] COR ART W 01/20/2016 ISABEL HUMPHREYS MD [...] (SEVERE) 01/20/2016 ISABEL HUMPHREYS MD Ot Z79.4 TOMBSTONE ERECTOR (CURRENT) USE OF INSULIN 01/20/2016 ISABEL HUMPHREYS [...] MD Ot I25.110 ATHSCL HEART DISEASE OF [place] COR ART W 01/20/2016 ISABEL HUMPHREYS MD [...] MD Ot M79.7 FIBROMYALGIA 01/20/2016 ISABEL HUMPHREYS MD Ot M79.89 OTHER SPECIFIED SOFT TISSUE DISORDERS 01/20/2016 ISABEL HUMPHREYS MD, Ot N17.9 ACUTE KIDNEY FAILURE, UNSPECIFIED 01/20/2016 ISABEL HUMPHREYS MD, Ot N18.4 CHRONIC KIDNEY DISEASE, STAGE 4 (SEVERE) 01/20/2016 ISABEL HUMPHREYS MD, Ot Z79.4 USP (CURRENT) USE OF INSULIN 01/20/2016 ISABEL HUMPHREYS [...] MD Ot I25.10 ATHSCL HEART DISEASE OF [place] CORONARY 01/20/2016 ISABEL HUMPHREYS MD Ot I25.110 ATHSCL HEART DISEASE OF [place] COR ART W 01/20/2016 ISABEL HUMPHREYS MD [...] Ot N17.9 ACUTE KIDNEY FAILURE, UNSPECIFIED 01/20/2016 SIABEL HUMPHREYS MD, Ot N18.4 CHRONIC KIDNEY DISEASE, STAGE 4 (SEVERE) 01/20/2016 ISABEL HUMPHREYS MD, Ot Z79.4 USP (CURRENT) USE OF INSULIN 01/20/2016 ISABEL HUMPHREYS MD, Ot Z95.5 PRESENCE OF CORONARY ANGIOPLASTY IMPLANT 01/23/2016 DULCE WILL MD, Ot N18.3 CHRONIC KIDNEY DISEASE, STAGE 3 (MODERAT 01/23/2016 DULCE WILL MD Ot R31.9 HEMATURIA, UNSPECIFIED 01/28/2016 MALVIN PYAAN MD, Ot D63.1 ANEMIA IN CHRONIC KIDNEY DISEASE 01/28/2016 MALVIN PAYAN MD, Ot E03.9 HYPOTHYROIDISM, UNSPECIFIED 01/28/2016 MALVIN PAYAN MD Ot E11.22 TYPE 2 DIABETES MELLITUS W DIABETIC ALLIGATOR TRAPPER 01/28/2016 MALVIN PAYAN MD, Ot E66.01 MORBID (SEVERE) OBESITY DUE TO EXCESS CA 01/28/2016 MALVIN PAYAN MD, Ot E83.42 HYPOMAGNESEMIA 01/28/2016 MALVIN PAYAN MD, Ot F32.9 MAJOR DEPRESSIVE DISORDER, SINGLE EPISOD 01/28/2016 MALVIN PAYAN MD, Ot F41.9 ANXIETY DISORDER, UNSPECIFIED 01/28/2016 MALVIN PAYAN MD Ot I12.9 HYPERTENSIVE CHRONIC KIDNEY DISEASE W ST 01/28/2016 MALVIN PAYAN MD, Ot I25.10 ATHSCL HEART DISEASE OF [place] CORONARY 01/28/2016 MALVIN PAYAN MD Ot I65.23 OCCLUSION AND STENOSIS OF [place] 01/28/2016 MALVIN PAYAN MD Ot N18.9 CHRONIC KIDNEY DISEASE, UNSPECIFIED 01/28/2016 MALVIN PAYAN MD Ot Z68.41 BODY MASS INDEX (BMI) 40.0-44.9, ADULT 01/28/2016 MALVIN PAYAN MD Ot Z79.4 USP (CURRENT) USE OF INSULIN 01/28/2016 MALVIN PAYAN MD Ot Z79.899 OTHER TOMBSTONE ERECTOR (CURRENT) DRUG THERAPY 02/25/2016 REJI MA MD, [...] UNSPECIFIED 02/29/2016 GUMARO HEBERT MD, Ot Z79.4 TOMBSTONE ERECTOR (CURRENT) USE OF INSULIN 02/29/2016 GUMARO HEBERT [...] UNSPECIFIED 03/02/2016 GUMARO HEBERT MD, Ot Z79.4 USP (CURRENT) USE OF INSULIN 03/02/2016 GUMARO HEBERT [...] UNSPECIFIED 03/06/2016 GUMARO HEBERT MD, Ot Z79.4 TOMBSTONE ERECTOR (CURRENT) USE OF INSULIN 03/06/2016 GUMARO HEBERT MD Ot Z95.5 PRESENCE OF CORONARY ANGIOPLASTY IMPLANT 03/06/2016 GUMARO HEBERT MD Ot Z99.2 DEPENDENCE ON RENAL DIALYSIS 03/10/2016 MALVIN PAYAN MD Ot D63.1 ANEMIA IN CHRONIC KIDNEY DISEASE 03/10/2016 MALVIN PAYAN MD Ot E03.9 HYPOTHYROIDISM, UNSPECIFIED 03/10/2016 MALVIN PAYAN MD Ot E11.22 TYPE 2 DIABETES MELLITUS W DIABETIC ALLIGATOR TRAPPER 03/10/2016 MALVIN PAYAN MD Ot E66.01 MORBID (SEVERE) OBESITY DUE TO EXCESS CA 03/10/2016 MALVIN PAYAN MD Ot E83.42 HYPOMAGNESEMIA 03/10/2016 MALVIN PAYAN MD Ot F32.9 MAJOR DEPRESSIVE DISORDER, SINGLE EPISOD 03/10/2016 MALVIN PAYAN MD Ot F41.9 ANXIETY DISORDER, UNSPECIFIED 03/10/2016 MALVIN PAYAN MD Ot I12.9 HYPERTENSIVE CHRONIC KIDNEY DISEASE W ST 03/10/2016 MALVIN PAYAN MD Ot I25.10 ATHSCL HEART DISEASE OF [place] CORONARY 03/10/2016 MALVIN PAYAN MD, Ot I65.23 OCCLUSION AND STENOSIS OF [place] 03/10/2016 MALVIN PAYAN MD, Ot N18.9 CHRONIC KIDNEY DISEASE, UNSPECIFIED 03/10/2016 MALVIN PAYAN MD, Ot Z68.41 BODY MASS INDEX (BMI) 40.0-44.9, ADULT 03/10/2016 MALVIN PAYAN MD, Ot Z79.4 USP (CURRENT) USE OF INSULIN 03/10/2016 MALVIN PAYAN MD, Ot Z79.899 OTHER TOMBSTONE ERECTOR (CURRENT) DRUG THERAPY 03/12/2016 REJI MA MD, Ot N18.6 END STAGE RENAL DISEASE 03/12/2016 REJI MA MD, Ot Z01.89 ENCOUNTER FOR OTHER SPECIFIED SPECIAL EX 03/12/2016 REJI MA MD, Ot Z99.2 DEPENDENCE ON RENAL DIALYSIS 03/23/2016 MALVIN PAYAN MD, Ot D63.1 ANEMIA IN CHRONIC KIDNEY DISEASE 03/23/2016 MALVIN PAYAN MD, Ot E03.9 HYPOTHYROIDISM, UNSPECIFIED 03/23/2016 MALIVN PAYAN MD, Ot E11.22 TYPE 2 DIABETES MELLITUS W DIABETIC ALLIGATOR TRAPPER 03/23/2016 MALVIN PAYAN MD, Ot E66.01 MORBID (SEVERE) OBESITY DUE TO EXCESS CA 03/23/2016 MALVIN PAYAN MD, Ot E83.42 HYPOMAGNESEMIA 03/23/2016 MALVIN PAYAN MD, Ot F32.9 MAJOR DEPRESSIVE DISORDER, SINGLE EPISOD 03/23/2016 MALVIN PAYAN MD, Ot F41.9 ANXIETY DISORDER, UNSPECIFIED 03/23/2016 MALVIN PAYAN MD, Ot I12.9 HYPERTENSIVE CHRONIC KIDNEY DISEASE W ST 03/23/2016 MALVIN PAYAN MD, Ot I25.10 ATHSCL HEART DISEASE OF [place] CORONARY 03/23/2016 MALVIN PAYAN MD, Ot I65.23 OCCLUSION AND STENOSIS OF [place] 03/23/2016 MALVIN PAYAN MD, Ot N18.9 CHRONIC KIDNEY DISEASE, UNSPECIFIED 03/23/2016 MALVIN PAYAN MD, Ot Z68.41 BODY MASS INDEX (BMI) 40.0-44.9, ADULT 03/23/2016 MALVIN PAYAN MD, Ot Z79.4 USP (CURRENT) USE OF INSULIN 03/23/2016 MALVIN PAYAN MD, Ot Z79.899 OTHER USP (CURRENT) DRUG THERAPY 03/25/2016 MALVIN PAYAN MD, Ot D63.1 ANEMIA IN CHRONIC KIDNEY DISEASE 03/25/2016 MALVIN PAYAN MD Ot E03.9 HYPOTHYROIDISM, UNSPECIFIED 03/25/2016 MALVIN PAYAN MD Ot E11.22 TYPE 2 DIABETES MELLITUS W DIABETIC ALLIGATOR TRAPPER 03/25/2016 MALVIN PAYAN MD, Ot E66.01 MORBID (SEVERE) OBESITY DUE TO EXCESS CA 03/25/2016 MALVIN PAYAN MD, Ot E83.42 HYPOMAGNESEMIA 03/25/2016 MALVIN PAYAN MD, Ot F32.9 MAJOR DEPRESSIVE DISORDER, SINGLE EPISOD 03/25/2016 MALVIN PAYAN MD, Ot F41.9 ANXIETY DISORDER, UNSPECIFIED 03/25/2016 MALVIN PAYAN MD, Ot I12.9 HYPERTENSIVE CHRONIC KIDNEY DISEASE W ST 03/25/2016 MALVIN PAYAN MD, Ot I25.10 ATHSCL HEART DISEASE OF [place] CORONARY 03/25/2016 MALVIN PAYAN MD Ot I65.23 OCCLUSION AND STENOSIS OF [place] 03/25/2016 MALVIN PAYAN MD, Ot N18.9 CHRONIC KIDNEY DISEASE, UNSPECIFIED 03/25/2016 MALVIN PAYAN MD Ot Z68.41 BODY MASS INDEX (BMI) 40.0-44.9, ADULT 03/25/2016 MALVIN PAYAN MD, Ot Z79.4 TOMBSTONE ERECTOR (CURRENT) USE OF INSULIN 03/25/2016 MALVIN PAYAN MD, Ot Z79.899 OTHER USP (CURRENT) DRUG THERAPY 04/23/2016 MALVIN PAYAN MD, Ot D63.1 ANEMIA IN CHRONIC KIDNEY DISEASE 04/23/2016 MALVIN PAYAN MD, Ot E03.9 HYPOTHYROIDISM, UNSPECIFIED 04/23/2016 MALVIN PAYAN MD, Ot E11.22 TYPE 2 DIABETES MELLITUS W DIABETIC ALLIGATOR TRAPPER 04/23/2016 MALVIN PAYAN MD, Ot E66.01 MORBID (SEVERE) OBESITY DUE TO EXCESS CA 04/23/2016 MALVIN PAYAN MD, Ot E83.42 HYPOMAGNESEMIA 04/23/2016 MALVIN PAYAN MD, Ot F32.9 MAJOR DEPRESSIVE DISORDER, SINGLE EPISOD 04/23/2016 MALVIN PAYAN MD, Ot F41.9 ANXIETY DISORDER, UNSPECIFIED 04/23/2016 MALVIN PAYAN MD Ot I12.9 HYPERTENSIVE CHRONIC KIDNEY DISEASE W ST 04/23/2016 MALVIN PAYAN MD Ot I25.10 ATHSCL HEART DISEASE OF [place] CORONARY 04/23/2016 MALVIN PAYAN MD, Ot I65.23 OCCLUSION AND STENOSIS OF [place] 04/23/2016 MALVIN PAYAN MD, Ot N18.9 CHRONIC KIDNEY DISEASE, UNSPECIFIED 04/23/2016 MALVIN PAYAN MD, Ot Z68.41 BODY MASS INDEX (BMI) 40.0-44.9, ADULT 04/23/2016 MALVIN PAYAN MD, Ot Z79.4 USP (CURRENT) USE OF INSULIN 04/23/2016 MALVIN PAYAN MD, Ot Z79.899 OTHER USP (CURRENT) DRUG THERAPY 05/07/2016 REJI MA MD, [...] K Ot I25.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 [place] COR ART W 05/20/2016 JESSIKA DO ANNE MARIE K Ot I51.7 CARDIOMEGALY 05/20/2016 JESSIKA DO, ANNE MARIE K Ot J44.9 CHRONIC OBSTRUCTIVE PULMONARY DISEASE, U 05/20/2016 JESSIKA DO, ANNE MARIE K Ot N18.6 END STAGE RENAL DISEASE 05/20/2016 JESSIKA DO ANNE MARIE K Ot R07.9 CHEST PAIN, UNSPECIFIED 05/20/2016 JESSIKA DO ANNE MARIE K Ot Z79.4 TOMBSTONE ERECTOR (CURRENT) USE OF INSULIN 05/20/2016 JESSIKA DO ANNE MARIE K Ot Z79.82 USP (CURRENT) USE OF ASPIRIN 05/20/2016 JESSIKA DO ANNE MARIE K Ot Z79.899 OTHER TOMBSTONE ERECTOR (CURRENT) DRUG THERAPY 05/20/2016 JESSIKA DO ANNE [...] K Ot I25.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 [place] COR ART W 05/21/2016 JESSIKA ANNE MARIE HUMMEL Ot I51.7 CARDIOMEGALY 05/21/2016 JESSIKA ANNE MARIE HUMMEL K Ot J44.9 CHRONIC OBSTRUCTIVE PULMONARY DISEASE, U 05/21/2016 JESSIKA GEORGE HUMMELA K Ot N18.6 END STAGE RENAL DISEASE 05/21/2016 JESSIKA GEORGE HUMMELA K Ot R07.9 CHEST PAIN, UNSPECIFIED 05/21/2016 JESSIKA GEORGE HUMMELA K Ot Z79.4 USP (CURRENT) USE OF INSULIN 05/21/2016 JESSIKA GEORGE HUMMELA K Ot Z79.82 USP (CURRENT) USE OF ASPIRIN 05/21/2016 JESSIKA ANNE MARIE HUMMEL K Ot Z79.899 OTHER TOMBSTONE ERECTOR (CURRENT) DRUG THERAPY 05/21/2016 ANNE MARIE ROSEN DO K Ot Z95.5 PRESENCE OF CORONARY ANGIOPLASTY IMPLANT 05/21/2016 ANNE MARIE ROSEN DO K Ot Z99.2 DEPENDENCE ON RENAL DIALYSIS 05/27/2016 Ot 414.01 CORONARY ATHEROSCLEROSIS OF [place] CORON 05/27/2016 Ot 272.4 HYPERLIPIDEMIA NEC/NOS 05/27/2016 Ot V58.69 OTH MED,LT,CURRENT USE 05/27/2016 Ot 414.00 CORON ATHEROSCLER NOS TYPE VESSEL, NATIV 05/27/2016 JULIANN MARSH, ISABEL R Ot 300.00 ANXIETY STATE NOS 05/27/2016 ISABEL HUMPHREYS MD Ot 311 DEPRESSIVE DISORDER NEC 05/27/2016 MARIBELL MARAVILLA TELEPHOTO ENGINEER Ot 790.6 ABN BLOOD CHEMISTRY NEC 05/27/2016 JULIANN MARSH, ISABEL R Ot 285.9 ANEMIA NOS 05/27/2016 JULIANN MARSH, ISABEL R Ot 460 ACUTE NASOPHARYNGITIS 05/27/2016 MARIBELL MARAVILLA TELEPHOTO ENGINEER Ot 272.4 HYPERLIPIDEMIA NEC/NOS 05/27/2016 MARIBELL MARAVILLA TELEPHOTO ENGINEER Ot 401.9 HYPERTENSION NOS 05/27/2016 MARIBELL MARAVILLA TELEPHOTO ENGINEER Ot 414.00 CORON ATHEROSCLER NOS TYPE VESSEL, NATIV 05/27/2016 JULIANN MARSH, ISABEL R Ot 348.89 OTHER CONDITIONS OF BRAIN 05/27/2016 ISABEL HUMPHREYS MD R Ot 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 05/27/2016 ISABEL HUMPHREYS MD R Ot 780.97 ALTERED MENTAL STATUS 05/27/2016 ISABEL HUMPHREYS MD R Ot 782.0 SKIN SENSATION DISTURB 05/27/2016 ISABEL HUMPHREYS MD R Ot V76.12 OTH [...] CCDS Ot I25.10 ATHSCL HEART DISEASE OF [place] CORONARY 05/27/2016 DAVE MARSH FAC, ALI FACP CCDS Ot J43.8 OTHER EMPHYSEMA 05/27/2016 NICOLETTE MARSH, DULCE Ot E11.9 TYPE 2 DIABETES MELLITUS WITHOUT COMPLIC 05/27/2016 NICOLETTE MARSH, DULCE Ot E66.9 OBESITY, UNSPECIFIED 05/27/2016 NICOLETTE MARSH, DULCE Ot I12.9 HYPERTENSIVE CHRONIC KIDNEY DISEASE W ST 05/27/2016 NICOLETTE MARSH, DULCE Ot I25.10 ATHSCL HEART DISEASE OF [place] CORONARY 05/27/2016 NICOLETTE MARSH, DULCE Ot J44.9 CHRONIC OBSTRUCTIVE PULMONARY DISEASE, U 05/27/2016 NICOLETTE MARSH, DULCE Ot N18.3 CHRONIC KIDNEY DISEASE, STAGE 3 (MODERAT 05/27/2016 NICOLETTE MARSH, DULCE Ot 403.90 HYPTNSV CHR KID DIS, UNSPEC, W CHR KD ST 05/27/2016 NICOLETTE MARSH, DULCE Ot 585.3 CHRONIC KIDNEY DISEASE, STAGE III (MODER 05/27/2016 DAVE CHAVEZ, EARL FACP CCDS Ot E11.21 TYPE 2 DIABETES MELLITUS WITH DIABETIC N 05/27/2016 DAVE CHAVEZ, ALI FACP CCDS Ot I25.10 ATHSCL HEART DISEASE OF [place] CORONARY 05/27/2016 DAVE CHAVEZC, ALI FACP CCDS Ot I65.23 OCCLUSION AND STENOSIS OF BILATERAL [place] 05/27/2016 DAVE MARSH FACC, ALI FACP CCDS Ot I73.9 PERIPHERAL VASCULAR DISEASE, UNSPECIFIED 05/27/2016 DAVE MARSH FACC, ALI FACP CCDS Ot J44.9 CHRONIC OBSTRUCTIVE PULMONARY DISEASE, U 05/27/2016 DAVE MARSH FACC, ALI FACP CCDS Ot N18.9 CHRONIC KIDNEY DISEASE, UNSPECIFIED 05/27/2016 DAVE MARSH FACC, ALI FACP CCDS Ot R00.2 PALPITATIONS 05/27/2016 DAVE MARSH FACC, ALI FACP CCDS Ot D63.1 ANEMIA IN CHRONIC KIDNEY DISEASE 05/27/2016 DAVE MARSH FACC, EARL FACP CCDS Ot E11.9 TYPE 2 DIABETES MELLITUS WITHOUT COMPLIC 05/27/2016 [facility] FACP CCDS Ot I25.10 ATHSCL HEART DISEASE OF [place] CORONARY 05/27/2016 DAVE CHAVEZ, ALI FACP CCDS Ot I65.23 OCCLUSION AND STENOSIS OF BILATERAL [place] 05/27/2016 DAVE CHAVEZ, ALI FACP CCDS Ot I73.9 PERIPHERAL VASCULAR DISEASE, UNSPECIFIED 05/27/2016 DAVE MARSH FACC, ALI FACP CCDS Ot J43.8 OTHER EMPHYSEMA 05/27/2016 DAVE MARSH FACC, ALI FACP CCDS Ot R00.2 PALPITATIONS 05/27/2016 KARI EDEN APRN Ot G47.33 OBSTRUCTIVE SLEEP APNEA (ADULT) ( PEDIATR 05/27/2016 KARI EDEN APRN Ot R06.00 DYSPNEA, UNSPECIFIED 05/27/2016 ISABEL HUMPHREYS MD R Ot E11.9 TYPE 2 DIABETES MELLITUS WITHOUT COMPLIC 05/27/2016 ISABEL HUMPHREYS MD Ot I10 ESSENTIAL (PRIMARY) HYPERTENSION 05/27/2016 DULCE [...] E11.22 TYPE 2 DIABETES MELLITUS W DIABETIC ALLIGATOR TRAPPER 05/27/2016 MALVIN PAYAN MD, Ot E66.01 MORBID (SEVERE) OBESITY DUE TO EXCESS CA 05/27/2016 MALVIN PAYAN MD, Ot E83.42 HYPOMAGNESEMIA 05/27/2016 MALVIN PAYAN MD, Ot F32.9 MAJOR DEPRESSIVE DISORDER, SINGLE EPISOD 05/27/2016 MALVNI PAYAN MD, Ot F41.9 ANXIETY DISORDER, UNSPECIFIED 05/27/2016 MALVIN PAYAN MD, Ot I12.9 HYPERTENSIVE CHRONIC KIDNEY DISEASE W ST 05/27/2016 MALVIN PAYAN MD, Ot I25.10 ATHSCL HEART DISEASE OF [place] CORONARY 05/27/2016 MALVIN PAYAN MD, Ot I65.23 OCCLUSION AND STENOSIS OF BILATERAL [place] 05/27/2016 MALVIN PAYAN MD, Ot N18.9 CHRONIC KIDNEY DISEASE, UNSPECIFIED 05/27/2016 MALVIN PAYAN MD, Ot Z68.41 BODY MASS INDEX (BMI) 40.0-44.9, ADULT 05/27/2016 MALVIN PAYAN MD Ot Z79.4 USP (CURRENT) USE OF INSULIN 05/27/2016 MALVIN PAYAN MD, Ot Z79.899 OTHER TOMBSTONE ERECTOR (CURRENT) DRUG THERAPY 05/28/2016 MARIBELL MARAVILLA TELEPHOTO ENGINEER Ot 272.4 HYPERLIPIDEMIA NEC/NOS 05/28/2016 MARIBELL MARAVILLA TELEPHOTO ENGINEER Ot 401.9 HYPERTENSION NOS 05/28/2016 MARIBELL MARAVILLA Ot 414.00 CORON ATHEROSCLER NOS TYPE VESSEL, NATIV 06/15/2016 MALVIN PAYAN MD Ot D63.1 ANEMIA IN CHRONIC KIDNEY DISEASE 06/15/2016 MALVIN PAYAN MD Ot E03.9 HYPOTHYROIDISM, UNSPECIFIED 06/15/2016 MALVIN PAYAN MD Ot E11.22 TYPE 2 DIABETES MELLITUS W DIABETIC ALLIGATOR TRAPPER 06/15/2016 MALVIN PAYAN MD Ot E66.01 MORBID (SEVERE) OBESITY DUE TO EXCESS CA 06/15/2016 MALVIN PAYAN MD, Ot E83.42 HYPOMAGNESEMIA 06/15/2016 MALVIN PAYAN MD, Ot F32.9 MAJOR DEPRESSIVE DISORDER, SINGLE EPISOD 06/15/2016 MALVIN PAYAN MD, Ot F41.9 ANXIETY DISORDER, UNSPECIFIED 06/15/2016 MALVIN PAYAN MD Ot I12.9 HYPERTENSIVE CHRONIC KIDNEY DISEASE W ST 06/15/2016 MALVIN PAYAN MD Ot I25.10 ATHSCL HEART DISEASE OF [place] CORONARY 06/15/2016 MALVIN PAYAN MD Ot I65.23 OCCLUSION AND STENOSIS OF BILATERAL [place] 06/15/2016 MALVIN PAYAN MD Ot N18.9 CHRONIC KIDNEY DISEASE, UNSPECIFIED 06/15/2016 MALVIN PAYAN MD Ot Z68.41 BODY MASS INDEX (BMI) 40.0-44.9, ADULT 06/15/2016 MALVIN PAYAN MD Ot Z79.4 USP (CURRENT) USE OF INSULIN 06/15/2016 MALVIN PAYAN MD, Ot Z79.899 OTHER USP (CURRENT) DRUG THERAPY 07/01/2016 MALVIN PAYNA MD Ot D63.1 ANEMIA IN CHRONIC KIDNEY DISEASE 07/01/2016 MALVIN PAYAN MD Ot E03.9 HYPOTHYROIDISM, UNSPECIFIED 07/01/2016 MALVIN PAYAN MD Ot E11.22 TYPE 2 DIABETES MELLITUS W DIABETIC ALLIGATOR TRAPPER 07/01/2016 MALVIN PAYAN MD Ot E66.01 MORBID (SEVERE) OBESITY DUE TO EXCESS CA 07/01/2016 MALVIN PAYAN MD Ot E83.42 HYPOMAGNESEMIA 07/01/2016 MALVIN PAYAN MD Ot F32.9 MAJOR DEPRESSIVE DISORDER, SINGLE EPISOD 07/01/2016 MALVIN PAYAN MD Ot F41.9 ANXIETY DISORDER, UNSPECIFIED 07/01/2016 MALVIN PAYAN MD Ot I12.9 HYPERTENSIVE CHRONIC KIDNEY DISEASE W ST 07/01/2016 MALVIN PAYAN MD, Ot I25.10 ATHSCL HEART DISEASE OF [place] CORONARY 07/01/2016 MALVIN PAYAN MD, Ot I65.23 OCCLUSION AND STENOSIS OF BILATERAL [place] 07/01/2016 MALVIN PAYAN MD, Ot N18.9 CHRONIC KIDNEY DISEASE, UNSPECIFIED 07/01/2016 MALVIN PAYAN MD, Ot Z68.41 BODY MASS INDEX (BMI) 40.0-44.9, ADULT 07/01/2016 MALVIN PAYAN MD, Ot Z79.4 USP (CURRENT) USE OF INSULIN 07/01/2016 MALVIN PAYAN MD, Ot Z79.899 OTHER TOMBSTONE ERECTOR (CURRENT) DRUG THERAPY 07/22/2016 MALVIN PAYAN MD, Ot D63.1 ANEMIA IN CHRONIC KIDNEY DISEASE 07/22/2016 MALVIN PAYAN MD, Ot E03.9 HYPOTHYROIDISM, UNSPECIFIED 07/22/2016 MALVIN PAYAN MD, Ot E11.22 TYPE 2 DIABETES MELLITUS W DIABETIC ALLIGATOR TRAPPER 07/22/2016 MALVIN PAYAN MD, Ot E66.01 MORBID (SEVERE) OBESITY DUE TO EXCESS CA 07/22/2016 MALVIN PAYAN MD, Ot E83.42 HYPOMAGNESEMIA 07/22/2016 MALVIN PAYAN MD, Ot F32.9 MAJOR DEPRESSIVE DISORDER, SINGLE EPISOD 07/22/2016 MALVIN PAYAN MD, Ot F41.9 ANXIETY DISORDER, UNSPECIFIED 07/22/2016 MALVIN PAYAN MD, Ot I12.9 HYPERTENSIVE CHRONIC KIDNEY DISEASE W ST 07/22/2016 MALVIN PAYAN MD, Ot I25.10 ATHSCL HEART DISEASE OF [place] CORONARY 07/22/2016 MALVIN PAYAN MD, Ot I65.23 OCCLUSION AND STENOSIS OF BILATERAL [place] 07/22/2016 MALVIN PAYAN MD, Ot N18.9 CHRONIC KIDNEY DISEASE, UNSPECIFIED 07/22/2016 MALVIN PAYAN MD, Ot Z45.2 ENCOUNTER FOR ADJUSTMENT AND MANAGEMENT 07/22/2016 MALVIN PAYAN MD, Ot Z68.41 BODY MASS INDEX (BMI) 40.0-44.9, ADULT 07/22/2016 MALVIN PAYAN MD, Ot Z79.4 USP (CURRENT) USE OF INSULIN 07/22/2016 MALVIN PAYAN MD, Ot Z79.899 OTHER TOMBSTONE ERECTOR (CURRENT) DRUG THERAPY 07/23/2016 Ot 272.4 HYPERLIPIDEMIA NEC/NOS 07/23/2016 Ot V58.69 OTH MED,LT,CURRENT USE 07/23/2016 Ot 414.00 CORON ATHEROSCLER NOS TYPE VESSEL, NATIV 07/23/2016 JULIANN MARSH, ISABEL R Ot 300.00 ANXIETY STATE NOS 07/23/2016 JULIANN MARSH ISABEL R Ot 311 DEPRESSIVE DISORDER NEC 07/23/2016 MARIBELL MARAVILLA TELEPHOTO ENGINEER Ot 790.6 ABN BLOOD CHEMISTRY NEC 07/23/2016 JONI HUMPHREYS MDYD R Ot 285.9 ANEMIA NOS 07/23/2016 JULIANN MARSH ISABEL R Ot 460 ACUTE NASOPHARYNGITIS 07/23/2016 MARIBELL MARAVILLA L TELEPHOTO ENGINEER Ot 272.4 HYPERLIPIDEMIA NEC/NOS 07/23/2016 TAIWO MARIBELL L TELEPHOTO ENGINEER Ot 401.9 HYPERTENSION NOS 07/23/2016 LEONIDES MARAVILLAHER L TELEPHOTO ENGINEER Ot 414.00 CORON ATHEROSCLER NOS TYPE VESSEL, NATIV 07/23/2016 JULIANN MARSH ISABEL R Ot 348.89 OTHER CONDITIONS OF BRAIN 07/23/2016 JONI HUMPHREYS MDYD R Ot 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 07/23/2016 JULIANN MARSH ISABEL R Ot 780.97 ALTERED MENTAL STATUS 07/23/2016 JONI HUMPHREYS MDYD R Ot 782.0 SKIN SENSATION DISTURB 07/23/2016 JONI HUMPHREYS MDYD R Ot V76.12 OTH [...] CCDS Ot I25.10 ATHSCL HEART DISEASE OF [place] CORONARY 07/23/2016 DAVE MARSH FACC, ALI FACP CCDS Ot J43.8 OTHER EMPHYSEMA 07/23/2016 DULCE WILL MD Ot E11.9 TYPE 2 DIABETES MELLITUS WITHOUT COMPLIC 07/23/2016 NICOLETTE MD, DULCE Ot E66.9 OBESITY, UNSPECIFIED 07/23/2016 NICOLETTE MARSH, DULCE Ot I12.9 HYPERTENSIVE CHRONIC KIDNEY DISEASE W ST 07/23/2016 NICOLETTE MARSH, DULCE Ot I25.10 ATHSCL HEART DISEASE OF [place] CORONARY 07/23/2016 NICOLETTE MARSH, DULCE Ot J44.9 [...] CCDS Ot I25.10 ATHSCL HEART DISEASE OF [place] CORONARY 07/23/2016 DAVE MARSH FACC, ALI FACP [...] CCDS Ot I25.10 ATHSCL HEART DISEASE OF [place] CORONARY 07/23/2016 DAVE MARSH FACC, ALI FACP [...] Ot Z99.2 DEPENDENCE ON RENAL DIALYSIS 07/23/2016 ORA MARSH, MALVIN Darden Ot D63.1 ANEMIA IN CHRONIC KIDNEY DISEASE 07/23/2016 MALVIN PAYAN MD Ot E03.9 HYPOTHYROIDISM, UNSPECIFIED 07/23/2016 MALVIN PAYAN MD Ot E11.22 TYPE 2 DIABETES MELLITUS W DIABETIC ALLIGATOR TRAPPER 07/23/2016 ORA MARSH, MALVIN Darden Ot E66.01 MORBID (SEVERE) OBESITY DUE TO EXCESS CA 07/23/2016 MALVIN PAYAN MD Ot E83.42 HYPOMAGNESEMIA 07/23/2016 MALVIN PAYAN MD Ot F32.9 MAJOR DEPRESSIVE DISORDER, SINGLE EPISOD 07/23/2016 MALVIN PAYAN MD Ot F41.9 ANXIETY DISORDER, UNSPECIFIED 07/23/2016 MALVIN PAYAN MD Ot I12.9 HYPERTENSIVE CHRONIC KIDNEY DISEASE W ST 07/23/2016 MALVIN PAYAN MD Ot I25.10 ATHSCL HEART DISEASE OF [place] CORONARY 07/23/2016 MALVIN PAYAN MD, Ot I65.23 OCCLUSION AND STENOSIS OF BILATERAL [place] 07/23/2016 MALVIN PAYAN MD Ot N18.9 CHRONIC KIDNEY DISEASE, UNSPECIFIED 07/23/2016 MALVIN PAYAN MD, Ot Z45.2 ENCOUNTER FOR ADJUSTMENT AND MANAGEMENT 07/23/2016 MALVIN PAYAN MD, Ot Z68.41 BODY MASS INDEX (BMI) 40.0-44.9, ADULT 07/23/2016 MALVIN PAYAN MD, Ot Z79.4 USP (CURRENT) USE OF INSULIN 07/23/2016 MALVIN PAYAN MD, Ot Z79.899 OTHER USP (CURRENT) DRUG THERAPY 08/10/2016 BIBI MARSH, ANTONIO [...] MD Ot I25.10 ATHSCL HEART DISEASE OF [place] CORONARY 08/14/2016 VERNON COLLIER MD, Ot J44.9 CHRONIC OBSTRUCTIVE PULMONARY DISEASE , U 08/14/2016 VERNON COLLIER MD, Ot N18.6 END STAGE RENAL DISEASE 08/14/2016 VERNON COLLIER MD Ot R06.02 SHORTNESS OF BREATH 08/14/2016 VERNON COLLIER MD Ot R07.9 CHEST PAIN, UNSPECIFIED 08/14/2016 VERNON COLLIER MD, Ot Z79.02 TOMBSTONE ERECTOR (CURRENT) USE OF ANTITHROMBOTI 08/14/2016 VERNON COLLIER MD Ot Z79.4 USP (CURRENT) USE OF INSULIN 08/14/2016 VERNON COLLIER MD Ot Z79.82 USP (CURRENT) USE OF ASPIRIN 08/14/2016 VERNON COLLIER MD, Ot Z79.899 OTHER USP (CURRENT) DRUG THERAPY 08/14/2016 VERNON COLLIER MD [...] MD Ot I25.10 ATHSCL HEART DISEASE OF [place] CORONARY 08/14/2016 VERNON COLLIER MD Ot J44.9 CHRONIC OBSTRUCTIVE PULMONARY DISEASE , U 08/14/2016 VERNON COLLIER MD, Ot N18.6 END STAGE RENAL DISEASE 08/14/2016 VERNON COLLIER MD Ot R06.02 SHORTNESS OF BREATH 08/14/2016 VERNON COLLIER MD Ot R07.9 CHEST PAIN, UNSPECIFIED 08/14/2016 VERNON COLLIER MD Ot Z79.02 TOMBSTONE ERECTOR (CURRENT) USE OF ANTITHROMBOTI 08/14/2016 VERNON COLLIER MD Ot Z79.4 USP (CURRENT) USE OF INSULIN 08/14/2016 VERNON COLLIER MD, Ot Z79.82 USP (CURRENT) USE OF ASPIRIN 08/14/2016 VERNON COLLIER MD Ot Z79.899 OTHER TOMBSTONE ERECTOR (CURRENT) DRUG THERAPY 08/14/2016 VERNON COLLIER MD, [...] MD Ot I25.10 ATHSCL HEART DISEASE OF [place] CORONARY 08/18/2016 VERNON COLLIER MD, Ot J44.9 CHRONIC OBSTRUCTIVE PULMONARY DISEASE , U 08/18/2016 VERNON COLLIER MD, Ot N18.6 END STAGE RENAL DISEASE 08/18/2016 VERNON COLLIER MD Ot R06.02 SHORTNESS OF BREATH 08/18/2016 VERNON COLLIER MD Ot R07.9 CHEST PAIN, UNSPECIFIED 08/18/2016 VERNON COLLIER MD Ot Z79.02 USP (CURRENT) USE OF ANTITHROMBOTI 08/18/2016 VERNON COLLIER MD Ot Z79.4 USP (CURRENT) USE OF INSULIN 08/18/2016 VERNON COLLIER MD, Ot Z79.82 TOMBSTONE ERECTOR (CURRENT) USE OF ASPIRIN 08/18/2016 VERNON COLLIER MD, Ot Z79.899 OTHER TOMBSTONE ERECTOR (CURRENT) DRUG THERAPY 08/18/2016 VERNON COLLIER MD [...] PAIN 08/24/2016 VERNON COLLIER MD Ot Z79.4 TOMBSTONE ERECTOR (CURRENT) USE OF INSULIN 08/24/2016 VERNON COLLIER MD Ot Z79.82 TOMBSTONE ERECTOR (CURRENT) USE OF ASPIRIN 08/24/2016 VERNON COLLIER MD Ot Z79.899 OTHER TOMBSTONE ERECTOR (CURRENT) DRUG THERAPY 08/25/2016 VERNON COLLIER MD Ot E11.9 TYPE 2 DIABETES MELLITUS WITHOUT COMPLIC 08/25/2016 VERNON COLLIER MD, Ot I10 ESSENTIAL (PRIMARY) HYPERTENSION 08/25/2016 VERNON COLLIER MD Ot J44.9 CHRONIC OBSTRUCTIVE PULMONARY DISEASE , U 08/25/2016 VERNON COLLIER MD Ot K59.00 CONSTIPATION, UNSPECIFIED 08/25/2016 VERNON COLLIER MD Ot N39.0 URINARY TRACT INFECTION, SITE NOT SPECIF 08/25/2016 VERNON COLLIER MD Ot R10.84 GENERALIZED ABDOMINAL PAIN 08/25/2016 VERNON COLLIER MD Ot Z79.4 TOMBSTONE ERECTOR (CURRENT) USE OF INSULIN 08/25/2016 VERNON COLLIER MD Ot Z79.82 USP (CURRENT) USE OF ASPIRIN 08/25/2016 AMIRA MARSH, VERNON Cardona Ot Z79.899 OTHER USP (CURRENT) DRUG THERAPY 09/23/2016 JESSIKA DO, ANNE MARIE K Ot E11.65 TYPE 2 DIABETES MELLITUS WITH HYPERGLYCE 09/23/2016 JESSIKA DO, ANNE MARIE K Ot I12.0 HYP CHR KIDNEY DISEASE W STAGE 5 CHR KID 09/23/2016 JESSIKA DO, ANNE MARIE K Ot I25.10 ATHSCL HEART DISEASE OF [place] CORONARY 09/23/2016 JESSIKA DO, ANNE MARIE K [...] JESSIKA DO, ANNE MARIE K Ot Z79.02 USP (CURRENT) USE OF ANTITHROMBOTI 09/23/2016 JESSIKA DO, ANNE MARIE K Ot Z79.4 TOMBSTONE ERECTOR (CURRENT) USE OF INSULIN 09/23/2016 JESSIKA DO, ANNE MARIE K Ot Z79.82 TOMBSTONE ERECTOR (CURRENT) USE OF ASPIRIN 09/23/2016 JESSIKA DO, ANNE MARIE K Ot Z79.899 OTHER TOMBSTONE ERECTOR (CURRENT) DRUG THERAPY 09/23/2016 JESSIKA DO, ANNE MARIE K Ot Z95.5 PRESENCE OF CORONARY ANGIOPLASTY IMPLANT 09/23/2016 JESSIKA DO, ANNE MARIE K Ot Z99.81 DEPENDENCE ON SUPPLEMENTAL OXYGEN 09/28/2016 MALVIN PAYAN MD Ot D63.1 ANEMIA IN CHRONIC KIDNEY DISEASE 09/28/2016 MALVIN PAYAN MD, Ot E03.9 HYPOTHYROIDISM, UNSPECIFIED 09/28/2016 MALVIN PAYAN MD Ot E11.22 TYPE 2 DIABETES MELLITUS W DIABETIC ALLIGATOR TRAPPER 09/28/2016 MALVIN PAYAN MD Ot E66.01 MORBID (SEVERE) OBESITY DUE TO EXCESS CA 09/28/2016 ORA MD, MALVIN K Ot E83.42 HYPOMAGNESEMIA 09/28/2016 MALVIN PAYAN MD Ot F32.9 MAJOR DEPRESSIVE DISORDER, SINGLE EPISOD 09/28/2016 MALVIN PAYAN MD, Ot F41.9 ANXIETY DISORDER, UNSPECIFIED 09/28/2016 MALVIN PAYAN MD, Ot I12.9 HYPERTENSIVE CHRONIC KIDNEY DISEASE W ST 09/28/2016 MALVIN PAYAN MD Ot I25.10 ATHSCL HEART DISEASE OF [place] CORONARY 09/28/2016 MALVIN PAYAN MD Ot I65.23 OCCLUSION AND STENOSIS OF BILATERAL [place] 09/28/2016 MALVIN PAYAN MD Ot N18.9 CHRONIC KIDNEY DISEASE, UNSPECIFIED 09/28/2016 MALVIN PAYAN MD, Ot Z45.2 ENCOUNTER FOR ADJUSTMENT AND MANAGEMENT 09/28/2016 MALVIN PAYAN MD, Ot Z68.41 BODY MASS INDEX (BMI) 40.0-44.9, ADULT 09/28/2016 MALVIN PAYAN MD, Ot Z79.4 USP (CURRENT) USE OF INSULIN 09/28/2016 MALVIN PAYAN MD, Ot Z79.899 OTHER USP (CURRENT) DRUG THERAPY 10/01/2016 JESSIKA HUMMEL ANNE MARIE K Ot E11.65 TYPE 2 DIABETES MELLITUS WITH HYPERGLYCE 10/01/2016 JESSIKA HUMMEL ANNE MARIE K Ot I12.0 HYP CHR KIDNEY DISEASE W STAGE 5 CHR KID 10/01/2016 JESSIKA HUMMEL ANNE MARIE K Ot I25.10 ATHSCL HEART DISEASE OF [place] CORONARY 10/01/2016 JESSIKA HUMMEL ANNE MARIE K Ot I25.2 OLD MYOCARDIAL INFARCTION 10/01/2016 JESSIKA HUMMEL ANNE MARIE K Ot I50.9 HEART FAILURE, UNSPECIFIED 10/01/2016 JESSIKA GEORGE HUMMELA K Ot I51.7 CARDIOMEGALY 10/01/2016 JESSIKA HUMMEL ANNE MARIE K Ot J40 BRONCHITIS, NOT SPECIFIED ACUTE OR CH 10/01/2016 JESSIKA HUMMEL ANNE MARIE K Ot J44.9 CHRONIC OBSTRUCTIVE PULMONARY DISEASE, U 10/01/2016 GEORGE ROSEN DOA K Ot N18.6 END STAGE RENAL DISEASE 10/01/2016 GEORGE ROSEN DOA K Ot R07.9 CHEST PAIN, UNSPECIFIED 10/01/2016 GEORGE ROSEN DOA K Ot Z79.02 TOMBSTONE ERECTOR (CURRENT) USE OF ANTITHROMBOTI 10/01/2016 GEORGE ROSEN DOA Adelso Ot Z79.4 TOMBSTONE ERECTOR (CURRENT) USE OF INSULIN 10/01/2016 ANNE MARIE ROSEN DO, Ot Z79.82 USP (CURRENT) USE OF ASPIRIN 10/01/2016 ANNE MARIE ROSEN DO, Ot Z79.899 OTHER USP (CURRENT) DRUG THERAPY 10/01/2016 ANNE MARIE ROSEN DO, Ot Z95.5 PRESENCE OF CORONARY ANGIOPLASTY IMPLANT 10/01/2016 ANNE MARIE ROSEN DO, Ot Z99.81 DEPENDENCE ON SUPPLEMENTAL OXYGEN 10/05/2016 MALVIN PAYAN MD, Ot D63.1 ANEMIA IN CHRONIC KIDNEY DISEASE 10/05/2016 MALVIN PAYAN MD, Ot E03.9 HYPOTHYROIDISM, UNSPECIFIED 10/05/2016 MALVIN PAYAN MD, Ot E11.22 TYPE 2 DIABETES MELLITUS W DIABETIC ALLIGATOR TRAPPER 10/05/2016 MALVIN PAYAN MD, Ot E66.01 MORBID (SEVERE) OBESITY DUE TO EXCESS CA 10/05/2016 MALVIN PAYAN MD, Ot E83.42 HYPOMAGNESEMIA 10/05/2016 MALVIN PAYAN MD, Ot F32.9 MAJOR DEPRESSIVE DISORDER, SINGLE EPISOD 10/05/2016 MALVIN PAYAN MD, Ot F41.9 ANXIETY DISORDER, UNSPECIFIED 10/05/2016 MALVIN PAYAN MD, Ot I12.9 HYPERTENSIVE CHRONIC KIDNEY DISEASE W ST 10/05/2016 MALVIN PAYAN MD, Ot I25.10 ATHSCL HEART DISEASE OF [place] CORONARY 10/05/2016 MALVIN PAYAN MD, Ot I65.23 OCCLUSION AND STENOSIS OF BILATERAL [place] 10/05/2016 MALVIN PAYAN MD, Ot N18.9 CHRONIC KIDNEY DISEASE, UNSPECIFIED 10/05/2016 MALVIN PAYAN MD, Ot Z45.2 ENCOUNTER FOR ADJUSTMENT AND MANAGEMENT 10/05/2016 MALVIN PAYAN MD, Ot Z68.41 BODY MASS INDEX (BMI) 40.0-44.9, ADULT 10/05/2016 MALVIN PAYAN MD, Ot Z79.4 USP (CURRENT) USE OF INSULIN 10/05/2016 MALVIN PAYAN MD, Ot Z79.899 OTHER TOMBSTONE ERECTOR (CURRENT) DRUG THERAPY 10/08/2016 MALVIN PAYAN MD, Ot D63.1 ANEMIA IN CHRONIC KIDNEY DISEASE 10/08/2016 MALVIN PAYAN MD, Ot E03.9 HYPOTHYROIDISM, UNSPECIFIED 10/08/2016 MALVIN PAYAN MD, Ot E11.22 TYPE 2 DIABETES MELLITUS W DIABETIC ALLIGATOR TRAPPER 10/08/2016 MALVIN PAYAN MD, Ot E66.01 MORBID (SEVERE) OBESITY DUE TO EXCESS CA 10/08/2016 MALVIN PAYAN MD Ot E83.42 HYPOMAGNESEMIA 10/08/2016 MALVIN PAYAN MD, Ot F32.9 MAJOR DEPRESSIVE DISORDER, SINGLE EPISOD 10/08/2016 MALVIN PAYAN MD, Ot F41.9 ANXIETY DISORDER, UNSPECIFIED 10/08/2016 MALVIN PAYAN MD Ot I12.9 HYPERTENSIVE CHRONIC KIDNEY DISEASE W ST 10/08/2016 MALVIN PAYAN MD, Ot I25.10 ATHSCL HEART DISEASE OF [place] CORONARY 10/08/2016 MALVIN PAYAN MD, Ot I65.23 OCCLUSION AND STENOSIS OF [place]IL[place]AL [place] 10/08/2016 MALVIN PAYAN MD, Ot N18.9 CHRONIC KIDNEY DISEASE, UNSPECIFIED 10/08/2016 MALVIN PAYAN MD, Ot Z45.2 ENCOUNTER FOR ADJUSTMENT AND MANAGEMENT 10/08/2016 MALVIN PAYAN MD, Ot Z68.41 BODY MASS INDEX (BMI) 40.0-44.9, ADULT 10/08/2016 MALVIN PAYAN MD, Ot Z79.4 TOMBSTONE ERECTOR (CURRENT) USE OF INSULIN 10/08/2016 MALVIN PAYAN MD, Ot Z79.899 OTHER TOMBSTONE ERECTOR (CURRENT) DRUG THERAPY 10/10/2016 GUMARO HEBERT MD Ot E11.9 TYPE 2 DIABETES MELLITUS WITHOUT COMPLIC 10/10/2016 GUMARO HEBERT MD, Ot I12.0 HYP CHR KIDNEY DISEASE W STAGE 5 CHR KID 10/10/2016 GUMARO HEBERT MD, Ot I25.10 ATHSCL HEART DISEASE OF [place] CORONARY 10/10/2016 GUMARO HEBERT MD, Ot I51.7 CARDIOMEGALY 10/10/2016 GUMARO HEBERT MD Ot N18.6 END STAGE RENAL DISEASE 10/10/2016 GUMARO HEBERT MD Ot R07.9 CHEST PAIN, UNSPECIFIED 10/10/2016 GUMARO HEBERT MD, Ot Z79.02 USP (CURRENT) USE OF ANTITHROMBOTI 10/10/2016 GUMARO HEBERT MD Ot Z79.4 USP (CURRENT) USE OF INSULIN 10/10/2016 GUMARO HEBERT MD, Ot Z79.899 OTHER TOMBSTONE ERECTOR (CURRENT) DRUG THERAPY 10/10/2016 GUMARO HEBERT MD, Ot Z95.5 PRESENCE OF CORONARY ANGIOPLASTY IMPLANT 10/11/2016 GUMARO HEBERT MD Ot E11.9 TYPE 2 DIABETES MELLITUS WITHOUT COMPLIC 10/11/2016 GUMARO HEBERT MD, Ot I12.0 HYP CHR KIDNEY DISEASE W STAGE 5 CHR KID 10/11/2016 GUMARO HEBERT MD, Ot I25.10 ATHSCL HEART DISEASE OF [place] CORONARY 10/11/2016 GUMARO HEBERT MD, Ot I51.7 CARDIOMEGALY 10/11/2016 GUMARO HEBERT MD, Ot N18.6 END STAGE RENAL DISEASE 10/11/2016 GUMARO HEBERT MD, Ot R07.9 CHEST PAIN, UNSPECIFIED 10/11/2016 GUMARO HEBERT MD, Ot Z79.02 TOMBSTONE ERECTOR (CURRENT) USE OF ANTITHROMBOTI 10/11/2016 GUMARO HEBERT MD, Ot Z79.4 USP (CURRENT) USE OF INSULIN 10/11/2016 GUMARO HEBERT MD, Ot Z79.899 OTHER USP (CURRENT) DRUG THERAPY 10/11/2016 GUMARO HEBERT MD, Ot Z95.5 PRESENCE OF CORONARY ANGIOPLASTY IMPLANT 11/18/2016 MALVIN PAYAN MD Ot D63.1 ANEMIA IN CHRONIC KIDNEY DISEASE 11/18/2016 MALVIN PAYAN MD Ot E03.9 HYPOTHYROIDISM, UNSPECIFIED 11/18/2016 MALVIN PAYAN MD Ot E11.22 TYPE 2 DIABETES MELLITUS W DIABETIC ALLIGATOR TRAPPER 11/18/2016 MALVIN PAYAN MD Ot E66.01 MORBID (SEVERE) OBESITY DUE TO EXCESS CA 11/18/2016 MALVIN PAYAN MD Ot E83.42 HYPOMAGNESEMIA 11/18/2016 MALVIN PAYAN MD Ot F32.9 MAJOR DEPRESSIVE DISORDER, SINGLE EPISOD 11/18/2016 MALVIN PAYAN MD Ot F41.9 ANXIETY DISORDER, UNSPECIFIED 11/18/2016 MALVIN PAYAN MD Ot I12.9 HYPERTENSIVE CHRONIC KIDNEY DISEASE W ST 11/18/2016 MALVIN PAYAN MD Ot I25.10 ATHSCL HEART DISEASE OF [place] CORONARY 11/18/2016 MALVIN PAYAN MD Ot I65.23 OCCLUSION AND STENOSIS OF BILATERAL [place] 11/18/2016 MALVIN PAYAN MD Ot N18.9 CHRONIC KIDNEY DISEASE, UNSPECIFIED 11/18/2016 MALVIN PAYAN MD, Ot Z68.41 BODY MASS INDEX (BMI) 40.0-44.9, ADULT 11/18/2016 MALVIN PAYAN MD Ot Z79.4 TOMBSTONE ERECTOR (CURRENT) USE OF INSULIN 11/18/2016 MALVIN PAYAN MD Ot Z79.899 OTHER TOMBSTONE ERECTOR (CURRENT) DRUG THERAPY 12/18/2016 Ot 414.00 CORON ATHEROSCLER NOS TYPE VESSEL, NATIV 12/18/2016 ISABEL HUMPHREYS MD Ot 300.00 ANXIETY STATE NOS 12/18/2016 ISABEL HUMPHREYS MD R Ot 311 DEPRESSIVE DISORDER NEC 12/18/2016 MARIBELL MARAVILLA TELEPHOTO ENGINEER Ot 790.6 ABN BLOOD CHEMISTRY NEC 12/18/2016 ISABEL HUMPHREYS MD Ot 285.9 ANEMIA NOS 12/18/2016 ISABEL HUMPHREYS MD R Ot 460 ACUTE NASOPHARYNGITIS 12/18/2016 MARIBELL MARAVILLA L TELEPHOTO ENGINEER Ot 272.4 HYPERLIPIDEMIA NEC/NOS 12/18/2016 MARIBELL MARAVILLA L TELEPHOTO ENGINEER Ot 401.9 HYPERTENSION NOS 12/18/2016 MARIBELL MARAVILLA L TELEPHOTO ENGINEER Ot 414.00 CORON ATHEROSCLER NOS TYPE VESSEL, NATIV 12/18/2016 ISABEL HUMPHREYS MD R Ot 348.89 OTHER CONDITIONS OF BRAIN 12/18/2016 ISABEL HUMPHREYS MD Ot 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 12/18/2016 [...] CCDS Ot I25.10 ATHSCL HEART DISEASE OF [place] CORONARY 12/18/2016 DAVE MARSH FACC, ALI FACP CCDS Ot J43.8 OTHER EMPHYSEMA 12/18/2016 NICOLETTE MARSH, DULCE Ot E11.9 TYPE 2 DIABETES MELLITUS WITHOUT COMPLIC 12/18/2016 NICOLETTE MARSH, DULCE Ot E66.9 OBESITY, UNSPECIFIED 12/18/2016 NICOLETTE MARSH, DULCE Ot I12.9 HYPERTENSIVE CHRONIC KIDNEY DISEASE W ST 12/18/2016 NICOLETTE MARSH DULCE Ot I25.10 ATHSCL HEART DISEASE OF [place] CORONARY 12/18/2016 NICOLETTE MARSH DULCE Ot J44.9 [...] CCDS Ot I25.10 ATHSCL HEART DISEASE OF [place] CORONARY 12/18/2016 DAVE MARSH FACC, ALI FACP [...] CCDS Ot I25.10 ATHSCL HEART DISEASE OF [place] CORONARY 12/18/2016 DAVE MARSH [facility], ALI FACP CCDS Ot I65.23 OCCLUSION AND STENOSIS OF BILATERAL [place] 12/18/2016 DAVE MARSH FAC, ALI FACP CCDS Ot I73.9 PERIPHERAL VASCULAR DISEASE, UNSPECIFIED 12/18/2016 DAVE MARSH FACDavid, ALI FACP CCDS Ot J43.8 OTHER EMPHYSEMA [...] HYPERTENSIVE CHRONIC KIDNEY DISEASE W ST 12/18/2016 DULCE WILL MD Ot N18.3 CHRONIC [...] E11.22 TYPE 2 DIABETES MELLITUS W DIABETIC ALLIGATOR TRAPPER 12/18/2016 MALVIN PAYAN MD Ot E66.01 MORBID (SEVERE) OBESITY DUE TO EXCESS CA 12/18/2016 MALVIN PAYAN MD Ot E83.42 HYPOMAGNESEMIA 12/18/2016 MALVIN PAYAN MD Ot F32.9 MAJOR DEPRESSIVE DISORDER, SINGLE EPISOD 12/18/2016 MALVIN PAYAN MD Ot F41.9 ANXIETY DISORDER, UNSPECIFIED 12/18/2016 MALVIN PAYAN MD Ot I12.9 HYPERTENSIVE CHRONIC KIDNEY DISEASE W ST 12/18/2016 MALVIN PAYAN MD Ot I25.10 ATHSCL HEART DISEASE OF [place] CORONARY 12/18/2016 MALVIN PAYAN MD Ot I65.23 OCCLUSION AND STENOSIS OF BILATERAL [place] 12/18/2016 MALVIN PAYAN MD Ot N18.9 CHRONIC KIDNEY DISEASE, UNSPECIFIED 12/18/2016 MALVIN PAYAN MD Ot Z68.41 BODY MASS INDEX (BMI) 40.0-44.9, ADULT 12/18/2016 MALVNI PAYAN MD, Ot Z79.4 TOMBSTONE ERECTOR (CURRENT) USE OF INSULIN 12/18/2016 MALVIN PAYAN MD, Ot Z79.899 OTHER TOMBSTONE ERECTOR (CURRENT) DRUG THERAPY 12/18/2016 Ot 414.00 CORON ATHEROSCLER NOS TYPE VESSEL, NATIV 12/18/2016 ISABEL HUMPHREYS MD R Ot 300.00 ANXIETY STATE NOS 12/18/2016 ISABEL HUMPHREYS MD Ot 311 DEPRESSIVE DISORDER NEC 12/18/2016 MARIBELL MARAVILLA TELEPHOTO ENGINEER Ot 790.6 ABN BLOOD CHEMISTRY NEC 12/18/2016 ISABEL HUMPHREYS MD R Ot 285.9 ANEMIA NOS 12/18/2016 ISABEL HUMPHREYS MD R Ot 460 ACUTE NASOPHARYNGITIS 12/18/2016 MARIBELL MARAVILLA TELEPHOTO ENGINEER Ot 272.4 HYPERLIPIDEMIA NEC/NOS 12/18/2016 MARIBELL MARAVILLA TELEPHOTO ENGINEER Ot 401.9 HYPERTENSION NOS 12/18/2016 MARIBELL MARAVILLA TELEPHOTO ENGINEER Ot 414.00 CORON ATHEROSCLER NOS TYPE VESSEL, [...] CCDS Ot I25.10 ATHSCL HEART DISEASE OF [place] CORONARY 12/18/2016 DAVE MARSH FACC, EARL FACP CCDS Ot J43.8 OTHER EMPHYSEMA 12/18/2016 NICOLETTE MARSH, DULCE Ot E11.9 TYPE 2 DIABETES MELLITUS WITHOUT COMPLIC 12/18/2016 NICOLETTE MARSH, DULCE Ot E66.9 OBESITY, UNSPECIFIED 12/18/2016 NICOLETTE MARSH DULCE Ot I12.9 HYPERTENSIVE CHRONIC KIDNEY DISEASE W ST 12/18/2016 NICOLETTE MARSH, DULCE Ot I25.10 ATHSCL HEART DISEASE OF [place] CORONARY 12/18/2016 NICOLETTE MARSH DULCE Ot J44.9 [...] WITH DIABETIC N 12/18/2016 DAVE MARSH FACC, EARL FACP CCDS Ot I25.10 ATHSCL HEART DISEASE OF [place] CORONARY 12/18/2016 DAVE MARSH FACC, ALI FACP [...] CCDS Ot I25.10 ATHSCL HEART DISEASE OF [place] CORONARY 12/18/2016 DAVE CHAVEZ, ALI FACP CCDS Ot I65.23 [...] E11.22 TYPE 2 DIABETES MELLITUS W DIABETIC ALLIGATOR TRAPPER 12/18/2016 MALVIN PAYAN MD Ot E66.01 MORBID (SEVERE) OBESITY DUE TO EXCESS CA 12/18/2016 MALVIN PAYAN MD Ot E83.42 HYPOMAGNESEMIA 12/18/2016 MALVIN PAYAN MD, Ot F32.9 MAJOR DEPRESSIVE DISORDER, SINGLE EPISOD 12/18/2016 MALVIN PAYAN MD, Ot F41.9 ANXIETY DISORDER, UNSPECIFIED 12/18/2016 MALVIN PAYAN MD Ot I12.9 HYPERTENSIVE CHRONIC KIDNEY DISEASE W ST 12/18/2016 MALVIN PAYAN MD Ot I25.10 ATHSCL HEART DISEASE OF [place] CORONARY 12/18/2016 MALVIN PAYAN MD Ot I65.23 OCCLUSION AND STENOSIS OF BILATERAL [place] 12/18/2016 MALVIN PAYAN MD Ot N18.9 CHRONIC KIDNEY DISEASE, UNSPECIFIED 12/18/2016 MALVIN PAYAN MD Ot Z68.41 BODY MASS INDEX (BMI) 40.0-44.9, ADULT 12/18/2016 MALVIN PAYAN MD Ot Z79.4 TOMBSTONE ERECTOR (CURRENT) USE OF INSULIN 12/18/2016 MALVIN PAYAN MD, Ot Z79.899 OTHER TOMBSTONE ERECTOR (CURRENT) DRUG THERAPY 12/18/2016 TREVOR TURCIOS MD, [...] UNSPECIFIED 12/18/2016 TREVOR TURCIOS MD, Ot Z79.4 USP (CURRENT) USE OF INSULIN 12/18/2016 TREVOR TURCIOS MD Ot Z79.82 TOMBSTONE ERECTOR (CURRENT) USE OF ASPIRIN 12/18/2016 TREVOR TURCIOS MD Ot Z79.899 OTHER TOMBSTONE ERECTOR (CURRENT) DRUG THERAPY 12/18/2016 TREVOR TURCIOS MD [...] Ot R07.9 CHEST PAIN, UNSPECIFIED 12/21/2016 TREVOR TRUCIOS MD Ot Z79.4 USP (CURRENT) USE OF INSULIN 12/21/2016 TREVOR TURCIOS MD Ot Z79.82 USP (CURRENT) USE OF ASPIRIN 12/21/2016 TREVOR TURCIOS MD Ot Z79.899 OTHER TOMBSTONE ERECTOR (CURRENT) DRUG THERAPY 12/21/2016 TREVOR TURCIOS MD [...] UNSPECIFIED 12/22/2016 TREVOR TURCIOS MD Ot Z79.4 USP (CURRENT) USE OF INSULIN 12/22/2016 TREVOR TURCIOS MD Ot Z79.82 TOMBSTONE ERECTOR (CURRENT) USE OF ASPIRIN 12/22/2016 TREVOR TURCIOS MD, Ot Z79.899 OTHER USP (CURRENT) DRUG THERAPY 12/22/2016 TREVOR TURCIOS MD, Ot Z99.2 DEPENDENCE ON RENAL DIALYSIS 01/05/2017 MALVIN PAYAN MD, Ot D63.1 ANEMIA IN CHRONIC KIDNEY DISEASE 01/05/2017 MALVIN PAYAN MD, Ot E03.9 HYPOTHYROIDISM, UNSPECIFIED 01/05/2017 MALVIN PAYAN MD Ot E11.22 TYPE 2 DIABETES MELLITUS W DIABETIC ALLIGATOR TRAPPER 01/05/2017 MALVIN PAYAN MD, Ot E66.01 MORBID (SEVERE) OBESITY DUE TO EXCESS CA 01/05/2017 MALVIN PAYAN MD, Ot E83.42 HYPOMAGNESEMIA 01/05/2017 MALVIN PAYAN MD, Ot F32.9 MAJOR DEPRESSIVE DISORDER, SINGLE EPISOD 01/05/2017 MALVIN PAYAN MD, Ot F41.9 ANXIETY DISORDER, UNSPECIFIED 01/05/2017 MALVIN PAYAN MD, Ot I12.9 HYPERTENSIVE CHRONIC KIDNEY DISEASE W ST 01/05/2017 MALVIN PAYAN MD, Ot I25.10 ATHSCL HEART DISEASE OF [place] CORONARY 01/05/2017 MALVIN PAYAN MD, Ot I65.23 OCCLUSION AND STENOSIS OF BILATERAL [place] 01/05/2017 MALVIN PAYAN MD, Ot N18.9 CHRONIC KIDNEY DISEASE, UNSPECIFIED 01/05/2017 MALVIN PAYAN MD, Ot Z68.41 BODY MASS INDEX (BMI) 40.0-44.9, ADULT 01/05/2017 MALVIN PAYAN MD Ot Z79.4 TOMBSTONE ERECTOR (CURRENT) USE OF INSULIN 01/05/2017 MALVIN PAYAN MD, Ot Z79.899 OTHER USP (CURRENT) DRUG THERAPY 01/06/2017 MARCELA MENDEZ DO, [...] UNSPECIFIED 01/06/2017 MARCELA MENDEZ DO, Ot Z79.02 USP (CURRENT) USE OF ANTITHROMBOTI 01/06/2017 MARCELA MENDEZ DO, Ot Z79.4 TOMBSTONE ERECTOR (CURRENT) USE OF INSULIN 01/06/2017 MARCELA MENDEZ DO, Ot Z79.82 USP (CURRENT) USE OF ASPIRIN 01/06/2017 MARCELA MENDEZ DO, Ot Z79.899 OTHER USP (CURRENT) DRUG THERAPY 01/06/2017 MARCELA MENDEZ DO Ot Z99.2 DEPENDENCE ON RENAL DIALYSIS 01/07/2017 [...] UNSPECIFIED 01/07/2017 MARCELA MENDEZ DO, Ot Z79.02 TOMBSTONE ERECTOR (CURRENT) USE OF ANTITHROMBOTI 01/07/2017 MARCELA MENDEZ DO, Ot Z79.4 USP (CURRENT) USE OF INSULIN 01/07/2017 MARCELA MENDEZ DO, Ot Z79.82 TOMBSTONE ERECTOR (CURRENT) USE OF ASPIRIN 01/07/2017 MARCELA MENDEZ DO, Ot Z79.899 OTHER TOMBSTONE ERECTOR (CURRENT) DRUG THERAPY 01/07/2017 MARCELA MENDEZ DO, Ot Z99.2 DEPENDENCE ON RENAL DIALYSIS 01/08/2017 MARCELA MENDEZ DO, Ot E11.9 TYPE 2 DIABETES MELLITUS WITHOUT COMPLIC 01/08/2017 MARCELA MENDEZ DO Ot I12.0 HYP CHR KIDNEY DISEASE W STAGE 5 CHR KID 01/08/2017 MARCELA MENDEZ DO Ot I51.7 CARDIOMEGALY 01/08/2017 MARCELA MENDEZ DO Ot N18.6 END STAGE RENAL DISEASE 01/08/2017 MARCELA MENDEZ DO Ot R07.89 OTHER CHEST PAIN 01/08/2017 MARCELA MENDEZ DO Ot R07.9 CHEST PAIN, UNSPECIFIED 01/08/2017 MARCELA MENDEZ DO Ot Z79.02 USP (CURRENT) USE OF ANTITHROMBOTI 01/08/2017 MARCELA MENDEZ DO Ot Z79.4 USP (CURRENT) USE OF INSULIN 01/08/2017 MARCELA MENDEZ DO Ot Z79.82 USP (CURRENT) USE OF ASPIRIN 01/08/2017 MARCELA MENDEZ DO Ot Z79.899 OTHER USP (CURRENT) DRUG THERAPY 01/08/2017 MARCELA MENDEZ DO [...] DISEASE 01/18/2017 URBAN JOHNSON APRN Ot Z79.02 USP (CURRENT) USE OF ANTITHROMBOTI 01/18/2017 URBAN JOHNSON APRN Ot Z79.4 USP (CURRENT) USE OF INSULIN 01/18/2017 URBAN JOHNSON APRN Ot Z79.82 USP (CURRENT) USE OF ASPIRIN 01/18/2017 URBAN JOHNSON APRN Ot Z79.899 OTHER TOMBSTONE ERECTOR (CURRENT) DRUG THERAPY 01/18/2017 URBAN JOHNSON APRN [...] JOHNSON APRN Ot K56.41 FECAL IMPACTION 01/19/2017 JOHNSON, PETER J DESK OFFICER Ot K59.00 CONSTIPATION, UNSPECIFIED 01/19/2017 URBAN JOHNSON DESK OFFICER Ot M79.7 FIBROMYALGIA 01/19/2017 URBAN JOHNSON APRN Ot N18.6 END STAGE RENAL DISEASE 01/19/2017 URBAN JOHNSON APRN Ot Z79.02 TOMBSTONE ERECTOR (CURRENT) USE OF ANTITHROMBOTI 01/19/2017 URBAN JOHNSON APRN Ot Z79.4 TOMBSTONE ERECTOR (CURRENT) USE OF INSULIN 01/19/2017 URBAN JOHNSON APRN Ot Z79.82 USP (CURRENT) USE OF ASPIRIN 01/19/2017 URBAN JOHNSON APRN Ot Z79.899 OTHER TOMBSTONE ERECTOR (CURRENT) DRUG THERAPY 01/19/2017 URBAN JOHNSON APRN [...] DISEASE 01/19/2017 URBAN JOHNSON APRN Ot Z79.02 TOMBSTONE ERECTOR (CURRENT) USE OF ANTITHROMBOTI 01/19/2017 URBAN JOHNSON APRN Ot Z79.4 TOMBSTONE ERECTOR (CURRENT) USE OF INSULIN 01/19/2017 URBAN JOHNSON APRN Ot Z79.82 USP (CURRENT) USE OF ASPIRIN 01/19/2017 URBAN JOHNSON APRN Ot Z79.899 OTHER TOMBSTONE ERECTOR (CURRENT) DRUG THERAPY 01/19/2017 URBAN JOHNSON APRN Ot Z95.5 PRESENCE OF CORONARY ANGIOPLASTY IMPLANT 01/19/2017 URBAN JOHNSON APRN Ot Z99.2 DEPENDENCE ON RENAL DIALYSIS 01/24/2017 [...] DISEASE 01/24/2017 URBAN JOHNSON APRN Ot Z79.02 TOMBSTONE ERECTOR (CURRENT) USE OF ANTITHROMBOTI 01/24/2017 URBAN JOHNSON APRN Ot Z79.4 TOMBSTONE ERECTOR (CURRENT) USE OF INSULIN 01/24/2017 URBAN JOHNSON APRN Ot Z79.82 USP (CURRENT) USE OF ASPIRIN 01/24/2017 URBAN JOHNSON APRN Ot Z79.899 OTHER USP (CURRENT) DRUG THERAPY 01/24/2017 URBAN JOHNSON APRN Ot Z95.5 PRESENCE OF CORONARY ANGIOPLASTY IMPLANT 01/24/2017 URBAN JOHNOSN APRN Ot Z99.2 DEPENDENCE ON RENAL DIALYSIS 01/29/2017 TREVOR TURCIOS MD Ot E11.9 TYPE 2 DIABETES MELLITUS WITHOUT COMPLIC 01/29/2017 TREVOR TURCIOS MD Ot I12.0 HYP CHR KIDNEY DISEASE W STAGE 5 CHR KID 01/29/2017 TREVOR TURCIOS MD Ot I25.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 [place]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 01/29/2017 TREVOR TURCIOS MD Ot I51.7 CARDIOMEGALY 01/29/2017 TREVOR TURCIOS MD Ot J44.9 CHRONIC OBSTRUCTIVE PULMONARY DISEASE, U 01/29/2017 TREVOR TURCIOS MD Ot N18.6 END STAGE RENAL DISEASE 01/29/2017 TREVOR TURCIOS MD Ot R07.9 CHEST PAIN, UNSPECIFIED 01/29/2017 TREVOR TURCIOS MD Ot Z79.02 USP (CURRENT) USE OF ANTITHROMBOTI 01/29/2017 TREVOR TURCIOS MD Ot Z79.4 TOMBSTONE ERECTOR (CURRENT) USE OF INSULIN 01/29/2017 TREVOR TURCIOS MD Ot Z79.82 USP (CURRENT) USE OF ASPIRIN 01/29/2017 TREVOR TURCIOS MD, Ot Z79.899 OTHER TOMBSTONE ERECTOR (CURRENT) DRUG THERAPY 01/29/2017 TREVOR TURCIOS MD [...] DISEASE 02/15/2017 URBAN JOHNSON APRN Ot Z79.02 TOMBSTONE ERECTOR (CURRENT) USE OF ANTITHROMBOTI 02/15/2017 URBAN JOHNSON APRN Ot Z79.4 TOMBSTONE ERECTOR (CURRENT) USE OF INSULIN 02/15/2017 URBAN JOHNSON APRN Ot Z79.82 TOMBSTONE ERECTOR (CURRENT) USE OF ASPIRIN 02/15/2017 URBAN JOHNSON APRN Ot Z79.899 OTHER TOMBSTONE ERECTOR (CURRENT) DRUG THERAPY 02/15/2017 URBAN JOHNSON APRN Ot Z95.5 PRESENCE OF CORONARY ANGIOPLASTY IMPLANT 02/15/2017 URBAN JOHNSON APRN Ot Z99.2 DEPENDENCE ON RENAL DIALYSIS 02/19/2017 Ot 414.00 CORON ATHEROSCLER NOS TYPE VESSEL, NATIV 02/19/2017 ISABEL HUMPHREYS MD Ot 300.00 ANXIETY STATE NOS 02/19/2017 ISABEL HUMPHREYS MD Ot 311 DEPRESSIVE DISORDER NEC 02/19/2017 MARIBELL MARAVILLA TELEPHOTO ENGINEER Ot 790.6 ABN BLOOD CHEMISTRY NEC 02/19/2017 SEGLIE MD, ISABEL R Ot 285.9 ANEMIA NOS 02/19/2017 JULIANN MARSH, ISABEL R Ot 460 ACUTE NASOPHARYNGITIS 02/19/2017 MARIBELL MARAVILLA TELEPHOTO ENGINEER Ot 272.4 HYPERLIPIDEMIA NEC/NOS 02/19/2017 MARIBELL MARAVILLA TELEPHOTO ENGINEER Ot 401.9 HYPERTENSION NOS 02/19/2017 MARIBELL MARAVILLA TELEPHOTO ENGINEER Ot 414.00 CORON ATHEROSCLER NOS TYPE VESSEL, NATIV 02/19/2017 ISABEL HUMPHREYS MD R Ot 348.89 OTHER CONDITIONS OF BRAIN 02/19/2017 JONI HUMPHREYS MDYD R Ot 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 02/19/2017 JONI HUMPHREYS MDYD R Ot 780.97 ALTERED MENTAL STATUS 02/19/2017 JONI HUMPHREYS MDYD R Ot 782.0 SKIN SENSATION DISTURB 02/19/2017 JONI HUMPHREYS MDYD R Ot V76.12 OTH SCREEN MAMMO-MALIGN NEOPLASM OF [place] 02/19/2017 Ot 250.01 DIAB AMBAR WO COMPL, TYPE I [JUVENILE TYP 02/19/2017 DAVE CHAVEZC, ALI FACP CCDS Ot D63.1 ANEMIA IN CHRONIC KIDNEY DISEASE 02/19/2017 DAVE MARSH FACC, ALI FACP CCDS Ot E11.9 TYPE 2 DIABETES MELLITUS WITHOUT COMPLIC 02/19/2017 DAVE MARSH FACC, ALI FACP CCDS Ot E66.8 OTHER OBESITY 02/19/2017 DAVE MARSH FACC, ALI FACP CCDS Ot I10 ESSENTIAL (PRIMARY) HYPERTENSION 02/19/2017 DAVE MARSH FACC, ALI FACP CCDS Ot I25.10 ATHSCL HEART DISEASE OF [place] CORONARY 02/19/2017 DAVE MARSH FACC, ALI FACP CCDS Ot J43.8 OTHER EMPHYSEMA 02/19/2017 DULCE WILL MD Ot E11.9 TYPE 2 DIABETES MELLITUS WITHOUT COMPLIC 02/19/2017 DULCE WILL MD Ot E66.9 OBESITY, UNSPECIFIED 02/19/2017 DULCE WILL MD Ot I12.9 HYPERTENSIVE CHRONIC KIDNEY DISEASE W ST 02/19/2017 ANA WILL MDIL Ot I25.10 ATHSCL HEART DISEASE OF [place] CORONARY 02/19/2017 DULCE WILL MD Ot J44.9 [...] CCDS Ot I25.10 ATHSCL HEART DISEASE OF [place] CORONARY 02/19/2017 DAVE MARSH FACC, ALI FACP CCDS Ot I65.23 OCCLUSION AND STENOSIS OF BILATERAL [place] 02/19/2017 DAVE CHAVEZC, ALI FACP CCDS Ot I73.9 [...] CCDS Ot I25.10 ATHSCL HEART DISEASE OF [place] CORONARY 02/19/2017 DAVE MARSH FACC, ALI FACP [...] 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 O 02/19/2017 NICOLETTE MARSH, DULCE Ot N18.3 CHRONIC KIDNEY DISEASE, STAGE 3 (MODERAT 02/19/2017 NICOLETTE MARSH, DULCE Ot R31.9 HEMATURIA, UNSPECIFIED 02/19/2017 FRANCESCA MARSH, REJI Ot N18.6 END STAGE RENAL DISEASE 02/19/2017 FRANCESCA MARSH, REJI Ot Z01.89 ENCOUNTER FOR OTHER SPECIFIED SPECIAL EX 02/19/2017 FRANCESCA MARSH, REJI Ot Z99.2 DEPENDENCE ON RENAL DIALYSIS 02/19/2017 BIBI MARSH, ANTONIO Ot H25.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, LEFT EYE 03/22/2017 AMIRA MARSH, VERNON Cardona Ot D64.9 ANEMIA, UNSPECIFIED 03/22/2017 VERNON COLLIER MD Ot E03.9 HYPOTHYROIDISM, UNSPECIFIED 03/22/2017 VERNON COLLIER MD Ot E11.22 TYPE 2 DIABETES MELLITUS W DIABETIC ALLIGATOR TRAPPER 03/22/2017 VERNON COLLIER MD Ot F41.0 PANIC DISORDER WITHOUT AGORAPHOBIA 03/22/2017 VERNON COLLIER MD Ot I12.0 HYP CHR KIDNEY DISEASE W STAGE 5 CHR KID 03/22/2017 VERNON COLLIER MD Ot I25.10 ATHSCL HEART DISEASE OF [place] CORONARY 03/22/2017 VERNON COLLIER MD Ot J44.9 CHRONIC OBSTRUCTIVE PULMONARY DISEASE , U 03/22/2017 VERNON COLLIER MD Ot K21.9 GASTRO-ESOPHAGEAL REFLUX DISEASE WITHOUT 03/22/2017 VERNON COLLIER MD Ot M19.90 UNSPECIFIED OSTEOARTHRITIS, UNSPECIFIED 03/22/2017 VERNON COLLIER MD Ot N18.6 END STAGE RENAL DISEASE 03/22/2017 VERNON COLLIER MD, Ot R07.9 CHEST PAIN, UNSPECIFIED 03/22/2017 VERNON COLLIER MD, Ot R11.0 NAUSEA 03/22/2017 VERNON COLLIER MD, Ot Z79.4 TOMBSTONE ERECTOR (CURRENT) USE OF INSULIN 03/22/2017 VERNON COLLIER MD, Ot Z79.82 USP (CURRENT) USE OF ASPIRIN 03/22/2017 VERNON COLLIER MD, Ot Z86.73 PRSNL HX OF TIA (TIA), AND CEREB INFRC W 03/22/2017 VERNON COLLIER MD, Ot Z90.49 ACQUIRED ABSENCE OF OTHER SPECIFIED PART 03/22/2017 VERNON COLLIER MD, Ot Z90.710 ACQUIRED ABSENCE OF BOTH CERVIX AND UTER 03/22/2017 VERNON COLLIER MD, Ot Z90.722 ACQUIRED ABSENCE OF OVARIES, BILATERAL 03/22/2017 VERNON COLLIER MD, Ot Z95.5 PRESENCE OF CORONARY ANGIOPLASTY IMPLANT 03/22/2017 VERNON COLLIER MD, Ot Z98.890 OTHER SPECIFIED POSTPROCEDURAL STATES 03/22/2017 VERNON COLLIER MD, Ot Z99.2 DEPENDENCE ON RENAL DIALYSIS 04/07/2017 MARIBEL MARTIN MD, Ot D63.1 ANEMIA IN CHRONIC KIDNEY DISEASE 04/07/2017 MARIBEL MARTIN MD, Ot E03.9 HYPOTHYROIDISM, UNSPECIFIED 04/07/2017 MARIBEL MARTIN MD, Ot E11.22 TYPE 2 DIABETES MELLITUS W DIABETIC ALLIGATOR TRAPPER 04/07/2017 MARIBEL MARTIN MD, Ot E66.01 MORBID (SEVERE) OBESITY DUE TO EXCESS CA 04/07/2017 MARIBEL MARTIN MD, Ot E83.42 HYPOMAGNESEMIA 04/07/2017 MARIBEL MARTIN MD, Ot F32.9 MAJOR DEPRESSIVE DISORDER, SINGLE EPISOD 04/07/2017 MARIBEL MARTIN MD, Ot F41.9 ANXIETY DISORDER, UNSPECIFIED 04/07/2017 MARIBEL MARTIN MD, Ot I12.9 HYPERTENSIVE CHRONIC KIDNEY DISEASE W ST 04/07/2017 MARIBEL MARTIN MD, Ot I25.10 ATHSCL HEART DISEASE OF [place] CORONARY 04/07/2017 MARIBEL MARTIN MD, Ot I65.23 OCCLUSION AND STENOSIS OF BILATERAL [place] 04/07/2017 MARIBEL MARTIN MD, Ot N18.9 CHRONIC KIDNEY DISEASE, UNSPECIFIED 04/07/2017 MARIBEL MARTIN MD, Ot Z68.41 BODY MASS INDEX (BMI) 40.0-44.9, ADULT 04/07/2017 MARIBEL MARTIN MD, Ot Z79.4 USP (CURRENT) USE OF INSULIN 04/07/2017 MARIBEL MARTIN MD, Ot Z79.899 OTHER TOMBSTONE ERECTOR (CURRENT) DRUG THERAPY Procedures Code Description Performed By Performed On 47.01 LAPAROSCOP APPENDECTOMY 08/02/2009 71.09 INCIS VULVA/PERINEUM NEC 07/23/2011 98.28 REMOVAL FB FROM FOOT 08/19/2013 86.04 OTHER SKIN SUBQ I D 08/22/2013 45.16 ESOPHAGOGASTRODUODENOSCOPY [EGD] W/CLOSE 02/07/2014 45.23 COLONOSCOPY 02/07 92670 PSYCH DIAGNOSTIC EVALUATION 03/15/2014 62761 PSYTX PT&/FAMILY 45 MINUTES 04/26/2014 58194 PSYTX PT&/FAMILY 60 MINUTES 05/11/2014 80995 PSYTX PT&/FAMILY 45 MINUTES 05/15/2014 44629 PSYTX PT&/FAMILY 45 MINUTES 05/15/2014 32590 PSYTX PT&/FAMILY 45 MINUTES 06/12/2014 66320 PSYTX PT&/FAMILY 45 MINUTES 06/12/2014 47981 PSYTX PT&/FAMILY 45 MINUTES 06/26/2014 60115 PSYTX PT&/FAMILY 45 MINUTES 07/10/2014 19426 PSYTX PT&/FAMILY 45 MINUTES 08/07/2014 82996 PSYTX PT&/FAMILY 45 MINUTES 09/18/2014 00.41 PROCEDURE ON TWO VESSELS 11/01/2014 00.46 INSERTION OF TWO VASCULAR STENTS 11/01/2014 00.66 PERCUTANEOUS TRANSLUMINAL CORONARY ANGIO 11/01/2014 36.06 CORONARY ARTERY STENT INSERTION NON-DRUG 11/01/2014 36.07 INSRT OF DRUG-ELUTING CORON ARTERY STENT 11/01/2014 37.22 LEFT HEART CARDIAC CATH 11/01/2014 88.56 CORONAR ARTERIOGR-2 CATH 11/01/2014 21058 PSYTX PT&/FAMILY 45 MINUTES 11/28/2014 06415 PSYTX PT&/FAMILY 45 MINUTES 01/01/2015 61289AE DILATION OF CORONARY ARTERY, ONE SITE, P 01/14/2016 [id number] MEASURE OF CARDIAC SAMPL PRESSURE, L H 01/14/2016 [id number] FLUOROSCOPY OF MULT COR ART USING L OSM 01/14/2016 Encounters ACCT No. Visit Date/Time Discharge Status Pt. Type Provider Facility Loc./Unit Complaint [id number] 01/01/2015 10:41:00 01/01/2015 23: 59:59 CLS Outpatient SOPHIA LSCS, KAREN Zaidi [id number] 11/28/2014 10:59:00 11/28/2014 23: 59:59 CLS Outpatient SOPHIA LSCS, KAREN Zaidi [id number] 09/18/2014 10:06:00 09/18/2014 23: 59:59 CLS Outpatient SOPHIA LSCS KAREN Zaidi [id number] 08/07/2014 10:01:00 08/07/2014 23: 59:59 CLS Outpatient SOPHIA LSCS, KAREN Zaidi [id number] 07/10/2014 10:13:00 07/10/2014 23: 59:59 CLS Outpatient SOPHIA LSCS, KAREN Zaidi [id number] 06/26/2014 10:19:00 06/26/2014 23: 59:59 CLS Outpatient SOPHIA LSCS, KAREN Zaidi [id number] 06/12/2014 10:01:00 06/12/2014 23: 59:59 CLS Outpatient SOPHIA LSCS, KAREN Zaidi [id number] 05/15/2014 13:01:00 05/15/2014 23: 59:59 CLS Outpatient SOPHIA LSCS, KAREN Zaidi [id number] 05/10/2014 16:00:00 05/10/2014 23: 59:59 CLS Outpatient KELL BLACKWELLPCJURGEN [id number] 04/26/2014 13:46:00 04/26/2014 23: 59:59 CLS Outpatient SOPHIA LSCS, KAREN Zaidi [id number] 03/14/2014 12:05:00 03/14/2014 23: 59:59 CLS Outpatient JURGEN CASTORENA [facility] [id number] 04/01/2017 09:24:00 2016 11:33:00 DIS Emergency AMIRA MARSH, VERNON [facility] ER CHEST PAIN [id number] 03/19/2017 03:22:00 2016 05:52:00 DIS Outpatient VERNON COLLIER MD [facility] ER CHEST PAIN [id number] 01/29/2017 10:10:00 2016 13:01:00 DIS Emergency TREVOR TURCIOS MD [facility] ER CHEST PAIN [id number] 01/18/2017 08:44:00 2016 11:17:00 DIS Emergency URBAN JOHNSON APRN [facility] ER ABD PAIN [id number] 01/06/2017 00:09:00 2016 23[facility]59:[facility] MARIBEL [facility] ONC [id number] 01/06/2017 00:44:00 2016 03:31:00 DIS Emergency MARCELA MENDEZ DO [facility] ER CP,SYNCOPAL [id number] 12/10/2016 12:15:00 2016 00:01:00 DIS Outpatient MALVIN PAYAN MD [facility] ONC [id number] 12/18/2016 08:21:00 2016 12:09:00 DIS Emergency TREVOR TURCIOS MD [facility] ER CHEST PAIN [id number] 10/10/2016 19:42:00 2016 23:30:00 DIS Emergency GUMARO HEBERT MD [facility] ER CHEST PAIN [id number] 06/30/2016 11:21:00 2016 00:01:00 DIS Outpatient MALVIN PAYAN MD [facility] ONC [id number] 09/23/2016 20:23:00 2016 23:15:00 DIS Emergency ANNE MARIE ROSEN DO [facility] ER CHEST PAIN [id number] 08/24/2016 15:36:00 2015 19:57:00 DIS Emergency VERNON COLLIER MD [facility] ER ABD PAIN [id number] 08/13/2016 21:22:00 2015 00:39:00 DIS Emergency AMIRA MARSH, VERNON Cardona [facility] ER CHEST PAIN [id number] 07/23/2016 08:36:00 2015 23:59:59 CLS Outpatient ANTONIO MTZ MD [facility] LAB CATARACT [id number] 05/05/2016 09:44:00 2015 15:02:00 DIS Outpatient MALVIN PAYAN MD [facility] ONC [id number] 05/20/2016 17:20:00 2015 20:24:00 DIS Emergency JESSIKA DO ANNE MARIE K [facility] ER CP [id number] 03/03/2016 09:48:00 2015 00:01:00 DIS Outpatient MALVIN PAYAN MD [facility] ONC [id number] 02/29/2016 19:10:00 2015 21:59:00 DIS Emergency EMILEE MARSH, GUMARO Allen [facility] ER CHEST PAIN [id number] 02/24/2016 14:17:00 2015 23:59:59 CLS Outpatient REJI MA MD [facility] HH CKD, DIALYSIS, SCREENING [id number] 01/15/2016 09:36:00 2015 11:05:00 DIS Inpatient JULIANN MASRH, ISABEL Zaidi [facility] CSD CHEST PAIN [id number] 01/09/2016 10:33:00 2015 23:59:59 CLS Outpatient DULCE WILL MD [facility] LAB [id number] 12/11/2015 10:17:00 2015 23:59:59 CLS Outpatient DULCE WILL MD [facility] LAB [id number] 11/27/2015 10:43:00 2015 00:01:00 DIS Outpatient MALVIN PAYAN MD [facility] ONC [id number] 11/18/2015 15:38:00 2015 23:59:59 CLS Outpatient KARI EDEN APRN [facility] RT DYSPNEA [id number] 11/04/2015 09:13:00 2015 23:59:59 CLS Outpatient ISABEL HUMPHREYS MD [facility] LAB HYPERTENSION, DIABETES [id number] 10/23/2015 08:55:00 2015 23:59:59 CLS Outpatient DAVE MARSH FACC, ALI FACP CCDS [facility] RAD LEFT LEG CLAUDICATION [id number] 10/22/2015 08:11:00 2015 23:59:59 CLS Outpatient DAVE MARSH FACDavid, ALI FACP CCDS [facility] CARD PALPTIATIONS,CAD,CKD,COPD [id number] 08/20/2015 14:02:00 2014 00:01:00 DIS Outpatient MALVIN PAYAN MD [facility] ONC [id number] 07/04/2015 12:44:00 2014 23:59:59 CLS Outpatient DAVE MARSH FACC, ALI FACP CCDS [facility] LAB HTN,OBESITY,DM II,COPD,CKD, CAD [id number] 07/04/2015 12:32:00 2014 23:59:59 CLS Outpatient DULCE WILL MD [facility] LAB HTN,DM II,COPD,CKD,CAD,OBESITY [id number] 06/13/2015 17:40:00 2014 16:05:00 DIS Inpatient ISABEL HUMPHREYS MD [facility] ICU CHEST PAIN,HTN [id number] 05/30/2015 11:32:00 2014 00:01:00 DIS Outpatient MALVIN PAYAN MD [facility] ONC [id number] 05/27/2015 13:07:00 2014 15:55:00 DIS Emergency VERNON COLLIER MD [facility] ER LOW BLOOD SUGAR [id number] 05/16/2015 09:58:00 2014 00:01:00 DIS Outpatient MALVIN PAYAN MD [facility] ONC [id number] 04/26/2015 09:46:00 2014 10:44:00 DIS Inpatient ISABEL HUMPHREYS MD [facility] 4TH HYPERKALEMIA,DEPRESSION,FATIGUE,ANEMIA [id number] 04/19/2015 10:53:00 2014 15:55:00 DIS Emergency GUMARO HEBERT MD [facility] ER SOA [id number] 03/21/2015 10:35:00 2014 23:59:59 CLS Outpatient DULCE WILL MD [facility] LAB [id number] 03/11/2015 14:46:00 2014 15:10:00 DIS Outpatient KARI EDEN APRN [facility] SLEEP Observed Apnea, Snoring, HTN, EDS, Heart Disease [id number] 02/07/2015 10:55:00 2014 00:01:00 DIS Outpatient MALVIN PAYAN MD [facility] ONC [id number] 11/22/2014 23:15:00 2014 16:37:00 DIS Inpatient ISABEL HUMPHREYS MD [facility] CSD CHEST PAIN, HYPERTENSIVE URGENCY, R FACE TINGLING [id number] 09/20/2014 20:00:00 2014 23:59:59 CLS Preadmit JASMIN GUILLEN APRN [facility] SLEEP [id number] 04/17/2014 14:36:00 2013 00:01:00 DIS Outpatient ANTONIO MTZ MD [facility] LAB DIABETES [id number] 06/22/2014 10:35:00 2013 23:59:59 CLS Outpatient ISABEL HUMPHREYS MD [facility] RAD ROUTINE [id number] 02/26/2014 13:05:00 2013 00:01:00 DIS Outpatient MALVIN PAYAN MD [facility] ONC [id number] 05/17/2014 18:14:00 2013 22:20:00 DIS Emergency CASSIDY ACOSTA [facility] ER ABDOMINAL PAIN RIGHT SIDE [id number] 03/14/2014 08:31:00 2013 23:59:59 CLS Outpatient ISABEL HUMPHREYS MD [facility] RAD CHANGE IN [id number] 02/20/2014 09:24:00 2013 12:40:00 DIS Inpatient ISABEL HUMPHREYS MD [facility] 4TH ANEMIA,EDEMA, DEPRESSION [id number] 02/01/2014 00:17:00 2013 12:25:00 DIS Inpatient ISABEL HUMPHREYS MD [facility] SURGICAL CHEST PAIN,HYPERTENSIVE URGENCY, ANXIETY,HYPERKALEM [id number] 11/30/2013 13:56:00 2013 23:59:59 CLS Outpatient MARIBELL MARAVILLA [facility] CARD CAD,HTN,HLD [id number] 10/02/2013 15:06:00 2013 23:59:59 CLS Outpatient ISABEL HUMPHREYS MD [facility] LAB ANEMIA,COLD [id number] 08/19/2013 10:04:00 2013 16:10:00 DIS Inpatient ISABEL HUMPHREYS MD [facility] 4TH CELLULITIS/MRSA [id number] 04/19/2013 16:55:00 2012 12:45:00 DIS Inpatient ISABEL HUMPHREYS MD [facility] 4TH UNCONTROLLED DIABETES,DIZZINESS [id number] 04/17/2013 14:03:00 2012 19:00:00 DIS Emergency JESSIKA DO, ANNE MARIE K [facility] ER MULTIPLE COMPLAINTS [id number] 04/06/2013 13:13:00 2012 23:59:59 CLS Outpatient MARIBELL MARAVILLA [facility] LAB ELEVATED CR [id number] 03/20/2013 15:06:00 2012 23:59:59 CLS Outpatient ISABEL HUMPHREYS MD [facility] LAB ANXIETY,DEPRESSION [id number] 02/27/2013 15:15:00 2012 08:04:00 DIS Inpatient ISABEL HUMPHREYS MD [facility] 4TH STAPH R EYE EAR [id number] 02/21/2013 09:59:00 2012 13:37:00 DIS Emergency CASSIDY ACOSTA [facility] ER FALL/EYE REDNESS EAR/HEAD PAIN [id number] 03/11/2015 14:49:00 Document Registration [id number] 03/11/2015 14:48:00 Document Registration [id number] 03/11/2015 14:48:00 Document Registration [id number] 03/11/2015 14:47:00 Document Registration [id number] 03/11/2015 14:47:00 Document Registration [id number] 03/11/2015 14:47:00 Document Registration [id number] 10/31/2014 22:49:00 Document Registration [id number] 07/16/2014 00:00:00 Document Registration [id number] 08/19/2012 00:02:00 Document Registration [id number] 03/17/2012 12:32:00 Document Registration [id number] 02/22/2012 07:51:00 Document Registration [id number] 01/06/2012 12:15:00 Document Registration [id number] 07/23/2011 14:38:00 Document Registration [id number] 05/19/2011 10:32:00 Document Registration [id number] 01/24/2011 08:29:00 Document Registration [id number] 07/18/2010 18:45:00 Document Registration [id number] 12/19/2009 08:50:00 Document Registration [id number] 11/06/2009 12:08:00 Document Registration [id number] 11/05/2009 08:36:00 Document Registration [id number] 08/11/2016 08:22:00 2015 14:53:00 DIS Outpatient Tamiko MARSH, [facility]
[2017-04-29 16:34] LABS: BASOPHILS % (AUTO) 1 % (0-10); EOSINOPHILS # (AUTO) 0.1 10^3/uL (0.0-0.3); EOSINOPHILS % (AUTO) 3 % (0-10); LYMPHOCYTES # (AUTO) 0.6 X 10^3 (1.0-4.0); LYMPHOCYTES % (AUTO) 15 % (12-44); MEAN CORPUSCULAR HEMOGLOBIN 31 PG (25-34); MEAN CORPUSCULAR HGB CONC 33 G/DL (32-36); MEAN CORPUSCULAR VOLUME 94 FL (80-99); MEAN PLATELET VOLUME 9.9 FL (7.4-10.4); MONOCYTES # (AUTO) 0.3 X 10^3 (0.0-1.0); MONOCYTES % (AUTO) 7 % (0-12); NEUTROPHILS # (AUTO) 3.1 X 10^3 (1.8-7.8); NEUTROPHILS % (AUTO) 75 % (42-75); PLATELET COUNT 101 10^3/uL (130-400); RED BLOOD COUNT 3.89 10^6/uL (4.35-5.85); RED CELL DISTRIBUTION WIDTH 13.2 % (10.0-14.5); WHITE BLOOD COUNT 4.2 10^3/uL (4.3-11.0)
--- NOTE | 2017-04-29 16:36 | Diagnostic Imaging Report ---
INDICATION: Chest pain EXAM: Frontal chest obtained at 4:19 hours p.m. COMPARISON with 04/01/17 FINDINGS: There is cardiomegaly. There is no change in the dialysis catheter compared to the prior study. There is mild central vascular prominence with no new infiltrate or pneumothorax or pleural fluid. Left-sided Port-A-Cath is unchanged. IMPRESSION: Prominent cardiomegaly with no change in dialysis catheter or Port-A-Cath. There is no new infiltrate or pneumothorax or pleural fluid. There is mild central vascular prominence. Dictated by: Dictated on workstation # [id number]
[2017-04-29 16:54] LABS: ALBUMIN 3.2 GM/DL (3.2-4.5); BILIRUBIN,TOTAL 0.4 MG/DL (0.1-1.0); CALCIUM 8.8 MG/DL (8.5-10.1); CREATININE SERUM 2.65 MG/DL (0.60-1.30); POTASSIUM 4.6 MMOL/L (3.6-5.0); TOTAL PROTEIN 6.5 GM/DL (6.4-8.2)
[2017-04-29] MEDS ORDERED: LORazepam INJ 2 MG/ML (ATIVAN) VIAL IVP ONE (17:30)
[2017-04-29 20:55] VITALS: BP 160/80
== END 2017-04-29 20:55 | disposition home or self-care (01) ==
LOC: EDUNIT# 15:43 → ER 15:45
DX: R07.89 Other chest pain (principal); F41.9 Anxiety disorder, unspecified; I12.0 Hypertensive chronic kidney disease with stage 5 chronic kidney disease or end stage renal disease; N18.6 End stage renal disease; Z99.2 Dependence on renal dialysis; I51.7 Cardiomegaly; J44.9 Chronic obstructive pulmonary disease, unspecified; I25.10 Atherosclerotic heart disease of native coronary artery without angina pectoris; K21.9 Gastro-esophageal reflux disease without esophagitis; E11.9 Type 2 diabetes mellitus without complications; M79.7 Fibromyalgia; Z79.82 Long term (current) use of aspirin; Z79.4 Long term (current) use of insulin; Z79.899 Other long term (current) drug therapy; Z95.5 Presence of coronary angioplasty implant and graft; Z95.828 Presence of other vascular implants and grafts; Z86.73 Personal history of transient ischemic attack (TIA), and cerebral infarction without residual deficits
CPT/HCPCS: 36415; 71010; 80053; 84484; 85025; 96374

== ENCOUNTER 2017-04-30 00:09 | Emergency (ER) | payer MEDICARE, MEDICAID ==
[~2017-04-30] VITALS: Ht 160 cm; Wt 100.1 kg
--- OUTSIDE RECORDS SUMMARY | 2017-04-30 00:15 | XMS REPORT | Clinical Summary ---
Author Author [facility] Organization [facility] Address Unknown Phone Unavailable Care Team Providers Care Vp Account Director Name Role Phone PCP Unavailable Source Comments Some departments are not documenting in the electronic medical record. If you do not see the information that you expected, contact Release of Information in the Health Information Management department at [phone] for further assistance in locating additional records.[facility] Allergies Not on File Current Medications Not [...]
--- OUTSIDE RECORDS SUMMARY | 2017-04-30 00:39 | XMS REPORT | Continuity of Care Document ---
Author Author [facility] Address Unknown Phone Unavailable Allergies Active Description Code Type Severity Reaction Onset Reported/Identified Relationship to Patient Clinical Status Yes acetaminophen [id number] Drug Allergy Mild DIZZINESS 02/20/2014 Yes propoxyphene [id number] Drug Allergy Mild DIZZINESS 02/20/2014 Yes codeine [id number] Drug Allergy Unknown CAN TAKE OXYCOD 02/20/2014 Yes esomeprazole [id number] Drug Allergy Unknown N/A 02/20/2014 Yes ketorolac [id number] Drug Allergy Unknown PT TAKES ASPIRI 02/20/2014 Yes levofloxacin [id number] Drug Allergy Unknown N/A 02/20/2014 Yes promethazine [id number] Drug Allergy Unknown N/A 02/20/2014 Yes TAPE [...] E11.22 TYPE 2 DIABETES MELLITUS W DIABETIC FOOD GENERAL MANAGER 08/05/1501 MALVIN PAYAN MD Ot E66.01 MORBID (SEVERE) OBESITY DUE TO EXCESS CA 08/05/1501 MALVIN PAYAN MD, Ot E83.42 HYPOMAGNESEMIA 08/05/1501 MALVIN PAYAN MD, Ot F32.9 MAJOR DEPRESSIVE DISORDER, SINGLE EPISOD 08/05/1501 MALVIN PAYAN MD, Ot F41.9 ANXIETY DISORDER, UNSPECIFIED 08/05/1501 ORA MD, MALVIN K Ot I12.9 HYPERTENSIVE CHRONIC KIDNEY DISEASE W ST 08/05/1501 MALVIN PAYAN MD Ot I25.10 ATHSCL HEART DISEASE OF [place] CORONARY 08/05/1501 MALVIN PAYAN MD Ot I65.23 OCCLUSION AND STENOSIS OF BILATERAL [place] 08/05/1501 MALVIN PAYAN MD Ot N18.9 CHRONIC KIDNEY DISEASE, UNSPECIFIED 08/05/1501 MALVIN PAYAN MD Ot Z68.41 BODY MASS INDEX (BMI) 40.0-44.9, ADULT 08/05/1501 MALVIN PAYAN MD Ot Z79.4 ANALYTICAL SCIENCES DIRECTOR (CURRENT) USE OF INSULIN 08/05/1501 MALVIN PAYAN MD, Ot Z79.899 OTHER INTERMEDIATE (CURRENT) DRUG THERAPY 11/04/2009 [facility] [...] JURGEN B 300.00 AN ANXIETY UNSPEC 02/06/2010 [facility] R 300.00 AN ANXIETY UNSPEC [...] NOS 07/26/2011 Ot 414.01 CORONARY ATHEROSCLEROSIS OF [place] CORON 07/26/2011 Ot 496 CHR AIRWAY OBSTRUCT [...] NOS 01/10/2012 Ot 414.01 CORONARY ATHEROSCLEROSIS OF [place] CORON 01/10/2012 Ot 530.81 ESOPHAGEAL REFLUX 01/10/2012 [...] NOS 02/23/2012 Ot 414.01 CORONARY ATHEROSCLEROSIS OF [place] CORON 02/23/2012 Ot 789.09 ABDOMINAL PAIN, OTHER [...] MARIE K Ot 414.01 CORONARY ATHEROSCLEROSIS OF [place] CORON 04/17/2013 JESSIKAAsh HUMMEL ANNE MARIE K [...] HUMPHREYS MD Ot 414.01 CORONARY ATHEROSCLEROSIS OF [place] CORON 09/09/2013 ISABEL HUMPHREYS MD R Ot [...] HUMPHREYS MD, Ot 414.01 CORONARY ATHEROSCLEROSIS OF [place] CORON 02/09/2014 ISABEL HUMPHREYS MD Ot 433.10 [...] INFARCT,IN 11/06/2014 Ot 414.01 CORONARY ATHEROSCLEROSIS OF [place] CORON 11/06/2014 Ot 427.31 ATRIAL FIBRILLATION 11/06/2014 [...] MD R Ot 414.01 CORONARY ATHEROSCLEROSIS OF [place] CORON 11/26/2014 ISABEL HUMPHREYS MD R Ot [...] MALVIN K Ot 273.8 02/20/2015 ORA MARSH, MALVNI K Ot 285.21 02/20/2015 ORA MARSH, MALVIN [...] ISABEL R Ot 311 03/11/2015 MARIBELL MARAVILLA GRIT REMOVAL OPERATOR Ot 790.6 03/11/2015 JULIANN MARSH, ISABEL R Ot 285.9 03/11/2015 JULIANN MARSH, ISABEL R Ot 460 03/11/2015 MARIBELL MARAVILLA L GRIT REMOVAL OPERATOR Ot 272.4 03/11/2015 MARIBELL MARAVILLA L GRIT REMOVAL OPERATOR Ot 401.9 03/11/2015 MARIBELL MARAVILLA L GRIT REMOVAL OPERATOR Ot 414.00 03/11/2015 JULIANN MARSH, ISABEL R [...] MALVIN K Ot 300.00 03/11/2015 ORA MARSH, MALIVN K Ot 403.90 03/11/2015 ORA MARSH, MALVIN [...] Ot 599.0 URIN TRACT INFECTION NOS 04/19/2015 GUMRAO HEBERT MD Ot 780.4 DIZZINESS AND GIDDINESS [...] ISABEL R Ot 311 04/26/2015 MARIBELL MARAVILLA GRIT REMOVAL OPERATOR Ot 790.6 04/26/2015 JULIANN MARSH, ISABEL R Ot 285.9 04/26/2015 JULIANN MARSH, ISABEL R Ot 460 04/26/2015 MARIBELL MARAVILLA GRIT REMOVAL OPERATOR Ot 272.4 04/26/2015 MARIBELL MARAVILLA GRIT REMOVAL OPERATOR Ot 401.9 04/26/2015 LEONIDES MARAVILLAHER Dustin GRIT REMOVAL OPERATOR Ot 414.00 04/26/2015 JULIANN MARSH, ISABEL R [...] NICOLETTE MARSH, DULCE Ot 585.3 05/01/2015 JULIANN MASRH, ISABEL R Ot 244.9 HYPOTHYROIDISM NOS 05/01/2015 [...] ISABEL R Ot 311 06/13/2015 MARIBELL MARAVILLA GRIT REMOVAL OPERATOR Ot 790.6 06/13/2015 JULIANN MARSH, ISABEL R Ot 285.9 06/13/2015 JULIANN MARSH, ISABEL R Ot 460 06/13/2015 MARIBELL MARAVILLA GRIT REMOVAL OPERATOR Ot 272.4 06/13/2015 MARIBELL MARAVILLA GRIT REMOVAL OPERATOR Ot 401.9 06/13/2015 MARIBELL MARAVILLA GRIT REMOVAL OPERATOR Ot 414.00 06/13/2015 JULIANN MARSH, ISABEL R [...] R Ot I25.10 ATHSCL HEART DISEASE OF [place] CORONARY 06/14/2015 JULIANN MARSH, ISABEL Zaidi Ot I25.2 OLD MYOCARDIAL INFARCTION 06/14/2015 JULIANN MARSH, ISABEL Zaidi Ot N18.4 CHRONIC KIDNEY DISEASE, STAGE 4 (SEVERE) 06/14/2015 ISABEL HUMPHREYS MD Ot R00.2 PALPITATIONS 06/14/2015 JULIANN MARSH, ISABEL Zaidi Ot R07.9 CHEST PAIN, UNSPECIFIED 06/14/2015 JULIANN MARSH, ISABEL Zaidi Ot Z79.4 ANALYTICAL SCIENCES DIRECTOR (CURRENT) USE OF INSULIN 07/15/2015 ORA MARSH, [...] ISABEL R Ot 311 07/15/2015 MARIBELL MARAVILLA GRIT REMOVAL OPERATOR Ot 790.6 07/15/2015 JULIANN MARSH, ISABEL R Ot 285.9 07/15/2015 JULIANN MARSH, ISABEL R Ot 460 07/15/2015 MARIBELL MARAVILLA GRIT REMOVAL OPERATOR Ot 272.4 07/15/2015 MARIBELL MARAVILLA GRIT REMOVAL OPERATOR Ot 401.9 07/15/2015 MARIBELL MARAVILLA GRIT REMOVAL OPERATOR Ot 414.00 07/15/2015 JULIANN MARSH, ISABEL R [...] ALI FACP CCDS Ot I10 07/15/2015 DAVE MRASH FACC, ALI FACP CCDS Ot I25.10 07/15/2015 [...] MARSH, DULCE Ot I12.9 07/22/2015 NICOLETTE MARSH, DLUCE Ot I25.10 07/22/2015 NICOLETTE MARSH, DULCE Ot [...] ISABEL R Ot 311 08/06/2015 MARIBELL MARAVILLA GRIT REMOVAL OPERATOR Ot 790.6 08/06/2015 JULIANN MARSH, ISABEL R Ot 285.9 08/06/2015 JULIANN MARSH, ISABEL R Ot 460 08/06/2015 MARIBELL MARAVILLA GRIT REMOVAL OPERATOR Ot 272.4 08/06/2015 MARIBELL MARAVILLA GRIT REMOVAL OPERATOR Ot 401.9 08/06/2015 MARIBELL MARAVILLA GRIT REMOVAL OPERATOR Ot 414.00 08/06/2015 JULIANN MARSH, ISABEL R Ot 348.89 08/06/2015 JULIANN MARSH, ISABEL R Ot 437.1 08/06/2015 JULIANN MARSH, ISABEL R Ot 780.97 08/06/2015 JULIANN MARSH, ISABEL R Ot 782.0 08/06/2015 JULIANN MARSH, SIABEL R Ot V76.12 08/06/2015 Ot 250.01 08/06/2015 [...] MARSH, MALVIN K Ot Z68.41 08/06/2015 ORA MRASH, MALVIN K Ot Z79.4 08/06/2015 ORA MARSH, MALVIN K Ot Z79.899 09/02/2015 ORA MARSH, MALVIN aDrden Ot D63.1 09/02/2015 ORA MARSH, MALVIN Darden Ot E03.9 09/02/2015 ROA MARSH, MALVIN Darden Ot E11.22 09/02/2015 ORA [...] ISABEL R Ot 311 09/02/2015 MARIBELL MARAVILLA GRIT REMOVAL OPERATOR Ot 790.6 09/02/2015 JULIANN MARSH, ISABEL R Ot 285.9 09/02/2015 JULIANN MARSH, ISABEL R Ot 460 09/02/2015 MARIBELL MARAVILLA GRIT REMOVAL OPERATOR Ot 272.4 09/02/2015 MARIBELL MARAVILLA GRIT REMOVAL OPERATOR Ot 401.9 09/02/2015 MARIBELL MARAVILLA GRIT REMOVAL OPERATOR Ot 414.00 09/02/2015 JULIANN MARSH, ISABEL R [...] E11.22 TYPE 2 DIABETES MELLITUS W DIABETIC FOOD GENERAL MANAGER 09/04/2015 MALVIN PAYAN MD, Ot E66.01 MORBID (SEVERE) OBESITY DUE TO EXCESS CA 09/04/2015 MALVIN PAYAN MD, Ot E83.42 HYPOMAGNESEMIA 09/04/2015 MALVIN PAYAN MD, Ot F32.9 MAJOR DEPRESSIVE DISORDER, SINGLE EPISOD 09/04/2015 MALVIN PAYAN MD, Ot F41.9 ANXIETY DISORDER, UNSPECIFIED 09/04/2015 MALVIN PAYAN MD, Ot I12.9 HYPERTENSIVE CHRONIC KIDNEY DISEASE W ST 09/04/2015 MALVIN PAYAN MD, Ot I25.10 ATHSCL HEART DISEASE OF [place] CORONARY 09/04/2015 MALVIN PAYAN MD, Ot I65.23 [...] ADULT 09/04/2015 MALVIN PAYAN MD, Ot Z79.4 INTERMEDIATE (CURRENT) USE OF INSULIN 09/04/2015 MALVIN PAYAN MD, Ot Z79.899 OTHER ANALYTICAL SCIENCES DIRECTOR (CURRENT) DRUG THERAPY 09/09/2015 MALVIN PAYAN MD, Ot 244.9 09/09/2015 ORA MARSH, MALVIN K Ot 250.40 09/09/2015 ORA MARSH, [...] R Ot 311 10/22/2015 TAIWO MARIBELL L GRIT REMOVAL OPERATOR Ot 790.6 10/22/2015 JULIANN MARSH, ISABEL R Ot 285.9 10/22/2015 JULIANN MARSH, ISABEL R Ot 460 10/22/2015 LEONIDES MARAVILLAHER L GRIT REMOVAL OPERATOR Ot 272.4 10/22/2015 TAIWO MARIBELL L GRIT REMOVAL OPERATOR Ot 401.9 10/22/2015 TAIWO MARIBELL L GRIT REMOVAL OPERATOR Ot 414.00 10/22/2015 JULIANN MARSH, ISABEL R [...] R Ot 311 11/04/2015 JOSE ARMANDOMARIBELL SALEH GRIT REMOVAL OPERATOR Ot 790.6 11/04/2015 JULIANN MARSH, ISABEL R Ot 285.9 11/04/2015 JULIANN MARSH, ISABEL R Ot 460 11/04/2015 JOSE ARMANDOMARIBELL SALEH GRIT REMOVAL OPERATOR Ot 272.4 11/04/2015 TAIWOMARIBELL GRIT REMOVAL OPERATOR Ot 401.9 11/04/2015 JOSE ARMANDOMARIBELL SALEH L GRIT REMOVAL OPERATOR Ot 414.00 11/04/2015 JULIANN MARSH, ISABEL R [...] FACC, ALI FACP CCDS Ot I25.10 11/11/2015 [facility] FAC, ALI FACP CCDS Ot I65.23 11/11/2015 [facility], ALI FACP CCDS Ot I73.9 11/11/2015 [facility], ALI FACP CCDS Ot J44.9 11/11/2015 [facility], ALI FACP CCDS Ot N18.9 11/11/2015 [facility], ALI FACP CCDS Ot R00.2 11/11/2015 [facility], ALI FACP CCDS Ot D63.1 11/11/2015 [facility], ALI FACP CCDS Ot E11.9 11/11/2015 [facility], ALI FACP CCDS Ot I25.10 11/11/2015 [facility], ALI FACP CCDS Ot I65.23 11/11/2015 [facility], ALI FACP CCDS Ot I73.9 11/11/2015 [facility], ALI FACP CCDS Ot J43.8 11/11/2015 [facility], ALI FACP CCDS Ot R00.2 11/18/2015 Ot 414.01 11/18/2015 Ot 272.4 11/18/2015 Ot V58.69 11/18/2015 Ot 414.00 11/18/2015 JULIANN MARSH, ISABEL R Ot 300.00 11/18/2015 JULIANN MARSH, ISABEL R Ot 311 11/18/2015 MARIBELL MARAVILLA L GRIT REMOVAL OPERATOR Ot 790.6 11/18/2015 JULIANN MARSH, ISABEL R Ot 285.9 11/18/2015 JULIANN MARSH, ISABEL R Ot 460 11/18/2015 MARIBELL MARAVILLA L GRIT REMOVAL OPERATOR Ot 272.4 11/18/2015 MARIBELL MARAVILLA L GRIT REMOVAL OPERATOR Ot 401.9 11/18/2015 MARIBELL MARAVILLA L GRIT REMOVAL OPERATOR Ot 414.00 11/18/2015 JULIANN MARSH, ISABEL R Ot 348.89 11/18/2015 JULIANN MARSH, ISABEL R Ot 437.1 11/18/2015 JULIANN MARSH, ISABEL R Ot 780.97 11/18/2015 JULIANN MARSH, ISABEL R Ot 782.0 11/18/2015 JULIANN MARSH, ISABEL R Ot V76.12 11/18/2015 Ot 250.01 11/18/2015 DAVE MARSH FACC, ALI FACP CCDS Ot D63.1 11/18/2015 DAVE MARSH FACC, ALI FACP CCDS Ot E11.9 11/18/2015 DVAE MARSH FACC, ALI FACP CCDS Ot E66.8 [...] DULCE Ot 585.3 11/18/2015 ORA MARSH, MALVIN Darden Ot D63.1 11/18/2015 ORA MARSH, MALVIN [...] MALVIN K Ot Z79.899 11/18/2015 DAVE MARSH [facility], ALI FACP CCDS Ot E11.21 11/18/2015 DAVE MARSH FACC, ALI FACP CCDS Ot I25.10 11/18/2015 DAVE MARSH FAC, ALI FACP CCDS Ot I65.23 11/18/2015 DAVE MARSH FAC, ALI FACP CCDS Ot I73.9 11/18/2015 DAVE MARSH FAC, ALI FACP CCDS Ot J44.9 11/18/2015 DAVE MARSH [facility], ALI FACP CCDS Ot N18.9 11/18/2015 DAVE MARSH [facility], ALI FACP CCDS Ot R00.2 11/18/2015 DAVE MARSH [facility], ALI FACP CCDS Ot D63.1 11/18/2015 DAVE MARSH [facility], ALI FACP CCDS Ot E11.9 11/18/2015 DAVE MD [facility], ALI FACP CCDS Ot I25.10 11/18/2015 DAVE MARSH [facility], ALI FACP CCDS Ot I65.23 11/18/2015 DAVE MARSH [facility], ALI FACP CCDS Ot I73.9 11/18/2015 DAVE MD [facility], ALI FACP CCDS Ot J43.8 11/18/2015 DAVE MARSH [facility], ALI FACP CCDS Ot R00.2 11/18/2015 JULIANN [...] E11.22 TYPE 2 DIABETES MELLITUS W DIABETIC FOOD GENERAL MANAGER 12/04/2015 MALVIN PAYAN MD Ot E66.01 MORBID [...] Darden Ot I25.10 ATHSCL HEART DISEASE OF [place] CORONARY 12/04/2015 ORA MARSH, MALVIN Darden Ot I65.23 OCCLUSION AND STENOSIS OF [place]IL[place]AL [place] 12/04/2015 ORA MARSH, MALVIN Darden Ot N18.9 CHRONIC KIDNEY DISEASE, UNSPECIFIED 12/04/2015 ORA MARSH, MALVIN Darden Ot Z68.41 BODY MASS INDEX (BMI) 40.0-44.9, ADULT 12/04/2015 ORA MARSH, MALVIN Darden Ot Z79.4 INTERMEDIATE (CURRENT) USE OF INSULIN 12/04/2015 ORA MARSH, MALVIN Darden Ot Z79.899 OTHER ANALYTICAL SCIENCES DIRECTOR (CURRENT) DRUG THERAPY 12/12/2015 ORA MARSH, MALVIN [...] CCDS Ot I25.10 ATHSCL HEART DISEASE OF [place] CORONARY 12/24/2015 DAVE MARSH FACC, ALI FACP CCDS Ot J43.8 OTHER EMPHYSEMA 12/30/2015 NICOLETTE MASRH, DULCE Ot I12.9 HYPERTENSIVE CHRONIC KIDNEY DISEASE W ST 12/30/2015 NICOLETTE MARSH, DULCE Ot N18.3 CHRONIC KIDNEY DISEASE, STAGE 3 (MODERAT 12/30/2015 NICOLETTE MARSH, DULCE Ot 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 O 01/09/2016 NICOLETTE MARSH, DULCE Ot N18.3 CHRONIC KIDNEY DISEASE, STAGE 3 (MODERAT 01/09/2016 NICOLETTE MARSH, DULCE Ot R31.9 HEMATURIA, UNSPECIFIED 01/14/2016 Ot 414.01 CORONARY ATHEROSCLEROSIS OF [place] CORON 01/14/2016 Ot 272.4 HYPERLIPIDEMIA NEC/NOS 01/14/2016 Ot V58.69 OTH MED,LT,CURRENT USE 01/14/2016 Ot 414.00 CORON ATHEROSCLER NOS TYPE VESSEL, NATIV 01/14/2016 ISABEL HUMPHREYS MD Ot 300.00 ANXIETY STATE NOS 01/14/2016 ISABEL HUMPHREYS MD Ot 311 DEPRESSIVE DISORDER NEC 01/14/2016 MARIBELL MARAVILLA GRIT REMOVAL OPERATOR Ot 790.6 ABN BLOOD CHEMISTRY NEC 01/14/2016 ISABEL HUMPHREYS MD Ot 285.9 ANEMIA NOS 01/14/2016 SEGLIE MD, ISABEL R Ot 460 ACUTE NASOPHARYNGITIS 01/14/2016 JOSE ARMANDOMARIBELL SALEH Dustin GRIT REMOVAL OPERATOR Ot 272.4 HYPERLIPIDEMIA NEC/NOS 01/14/2016 MARIBELL MARAVILLA GRIT REMOVAL OPERATOR Ot 401.9 HYPERTENSION NOS 01/14/2016 MARIBELL MARAVILLA GRIT REMOVAL OPERATOR Ot 414.00 CORON ATHEROSCLER NOS TYPE VESSEL, [...] CCDS Ot I25.10 ATHSCL HEART DISEASE OF [place] CORONARY 01/14/2016 DAVE MARSH FACC, ALI FACP CCDS Ot J43.8 OTHER EMPHYSEMA 01/14/2016 DULCE WILL MD Ot E11.9 TYPE 2 DIABETES MELLITUS WITHOUT COMPLIC 01/14/2016 DULCE WILL MD Ot E66.9 OBESITY, UNSPECIFIED 01/14/2016 DULCE WILL MD Ot I12.9 HYPERTENSIVE CHRONIC KIDNEY DISEASE W ST 01/14/2016 DULCE WILL MD Ot I25.10 ATHSCL HEART DISEASE OF [place] CORONARY 01/14/2016 DULCE WILL MD Ot J44.9 [...] CCDS Ot I25.10 ATHSCL HEART DISEASE OF [place] CORONARY 01/14/2016 DAVE MARSH FACC, ALI FACP [...] CCDS Ot I25.10 ATHSCL HEART DISEASE OF [place] CORONARY 01/14/2016 DAVE MARSH FACC, ALI FACP [...] E11.22 TYPE 2 DIABETES MELLITUS W DIABETIC FOOD GENERAL MANAGER 01/14/2016 MALVIN PAYAN MD Ot E66.01 MORBID (SEVERE) OBESITY DUE TO EXCESS CA 01/14/2016 MALVIN PAYAN MD Ot E83.42 HYPOMAGNESEMIA 01/14/2016 MALVIN PAYAN MD, Ot F32.9 MAJOR DEPRESSIVE DISORDER, SINGLE EPISOD 01/14/2016 MALVIN PAYAN MD Ot F41.9 ANXIETY DISORDER, UNSPECIFIED 01/14/2016 MALVIN PAYAN MD, Ot I12.9 HYPERTENSIVE CHRONIC KIDNEY DISEASE W ST 01/14/2016 MALVIN PAYAN MD, Ot I25.10 ATHSCL HEART DISEASE OF [place] CORONARY 01/14/2016 MALVIN PAYAN MD Ot I65.23 OCCLUSION AND STENOSIS OF BILATERAL [place] 01/14/2016 MALVIN PAYAN MD Ot N18.9 CHRONIC KIDNEY DISEASE, UNSPECIFIED 01/14/2016 MALVIN PAYAN MD Ot Z68.41 BODY MASS INDEX (BMI) 40.0-44.9, ADULT 01/14/2016 MALVIN PAYAN MD Ot Z79.4 ANALYTICAL SCIENCES DIRECTOR (CURRENT) USE OF INSULIN 01/14/2016 MALVIN PAYAN MD Ot Z79.899 OTHER INTERMEDIATE (CURRENT) DRUG THERAPY 01/14/2016 DULCE WILL MD [...] UNSPECIFIED 01/14/2016 Ot 414.01 CORONARY ATHEROSCLEROSIS OF [place] CORON 01/14/2016 Ot 272.4 HYPERLIPIDEMIA NEC/NOS 01/14/2016 Ot V58.69 OTH MED,LT,CURRENT USE 01/14/2016 Ot 414.00 CORON ATHEROSCLER NOS TYPE VESSEL, NATIV 01/14/2016 ISABEL HUMPHREYS MD R Ot 300.00 ANXIETY STATE NOS 01/14/2016 ISABEL HUMPHREYS MD R Ot 311 DEPRESSIVE DISORDER NEC 01/14/2016 MARIBELL MARAVILLA GRIT REMOVAL OPERATOR Ot 790.6 ABN BLOOD CHEMISTRY NEC 01/14/2016 ISABEL HUMPHREYS MD R Ot 285.9 ANEMIA NOS 01/14/2016 ISABEL HUMPHREYS MD R Ot 460 ACUTE NASOPHARYNGITIS 01/14/2016 MARIBELL MARAVILLA GRIT REMOVAL OPERATOR Ot 272.4 HYPERLIPIDEMIA NEC/NOS 01/14/2016 MARIBELL MARAVILLA L GRIT REMOVAL OPERATOR Ot 401.9 HYPERTENSION NOS 01/14/2016 MARIBELL MARAVILLA GRIT REMOVAL OPERATOR Ot 414.00 CORON ATHEROSCLER NOS TYPE VESSEL, [...] ANEMIA IN CHRONIC KIDNEY DISEASE 01/14/2016 EARL CAOSTA MD, FACCP CCDS Ot E11.9 TYPE 2 DIABETES MELLITUS WITHOUT COMPLIC 01/14/2016 EARL ACOSTA MD, FACC FACP CCDS Ot E66.8 OTHER OBESITY 01/14/2016 EARL ACOSTA MD, FACC FACP CCDS Ot I10 ESSENTIAL (PRIMARY) HYPERTENSION 01/14/2016 EARL ACOSTA MD, FACC FACP CCDS Ot I25.10 ATHSCL HEART DISEASE OF [place] CORONARY 01/14/2016 EARL ACOSTA MD, FACC FACP CCDS Ot J43.8 OTHER EMPHYSEMA 01/14/2016 DULCE WILL MD Ot E11.9 TYPE 2 DIABETES MELLITUS WITHOUT COMPLIC 01/14/2016 DULCE WILL MD Ot E66.9 OBESITY, UNSPECIFIED 01/14/2016 NICOLETTE MARSH, DULCE Ot I12.9 HYPERTENSIVE CHRONIC KIDNEY DISEASE W ST 01/14/2016 NICOLETTE MARSH, DULCE Ot I25.10 ATHSCL HEART DISEASE OF [place] CORONARY 01/14/2016 NICOLETTE MARSH, DULCE Ot J44.9 [...] CCDS Ot I25.10 ATHSCL HEART DISEASE OF [place] CORONARY 01/14/2016 DAVE MARSH FACC, EARL FACP [...] CCDS Ot I25.10 ATHSCL HEART DISEASE OF [place] CORONARY 01/14/2016 DAVE MARSH FACC, ALI FACP [...] E11.22 TYPE 2 DIABETES MELLITUS W DIABETIC FOOD GENERAL MANAGER 01/14/2016 MALVIN PAYAN MD Ot E66.01 MORBID (SEVERE) OBESITY DUE TO EXCESS CA 01/14/2016 MALVIN PAYAN MD Ot E83.42 HYPOMAGNESEMIA 01/14/2016 MALVIN PAYAN MD Ot F32.9 MAJOR DEPRESSIVE DISORDER, SINGLE EPISOD 01/14/2016 MALVIN PAYAN MD Ot F41.9 ANXIETY DISORDER, UNSPECIFIED 01/14/2016 MALVIN PAYAN MD Ot I12.9 HYPERTENSIVE CHRONIC KIDNEY DISEASE W ST 01/14/2016 MALVIN PAYAN MD Ot I25.10 ATHSCL HEART DISEASE OF [place] CORONARY 01/14/2016 MALVIN PAYAN MD Ot I65.23 OCCLUSION AND STENOSIS OF BILATERAL [place] 01/14/2016 MALVIN PAYAN MD Ot N18.9 CHRONIC KIDNEY DISEASE, UNSPECIFIED 01/14/2016 MALVIN PAYAN MD Ot Z68.41 BODY MASS INDEX (BMI) 40.0-44.9, ADULT 01/14/2016 MALVIN PAYAN MD Ot Z79.4 ANALYTICAL SCIENCES DIRECTOR (CURRENT) USE OF INSULIN 01/14/2016 MALVIN PAYAN MD, Ot Z79.899 OTHER ANALYTICAL SCIENCES DIRECTOR (CURRENT) DRUG THERAPY 01/14/2016 DULCE WILL MD, [...] R Ot I25.110 ATHSCL HEART DISEASE OF [place] COR ART W 01/17/2016 ISABEL HUMPHREYS MD [...] 01/17/2016 ISABEL HUMPHREYS MD R Ot Z79.4 ANALYTICAL SCIENCES DIRECTOR (CURRENT) USE OF INSULIN 01/17/2016 ISABEL HUMPHREYS [...] MD Ot I25.110 ATHSCL HEART DISEASE OF [place] COR ART W 01/18/2016 ISABEL HUMPHREYS MD [...] (SEVERE) 01/18/2016 ISABEL HUMPHREYS MD Ot Z79.4 INTERMEDIATE (CURRENT) USE OF INSULIN 01/18/2016 ISABEL HUMPHREYS [...] MD Ot I25.110 ATHSCL HEART DISEASE OF [place] COR ART W 01/18/2016 ISABEL HUMPHREYS MD, [...] (SEVERE) 01/18/2016 ISABEL HUMPHREYS MD Ot Z79.4 INTERMEDIATE (CURRENT) USE OF INSULIN 01/18/2016 ISABEL HUMPHREYS [...] MD Ot I25.110 ATHSCL HEART DISEASE OF [place] COR ART W 01/19/2016 ISABEL HUMPHREYS MD [...] (SEVERE) 01/19/2016 ISABEL HUMPHREYS MD Ot Z79.4 INTERMEDIATE (CURRENT) USE OF INSULIN 01/19/2016 ISABEL HUMPHREYS [...] R Ot I25.110 ATHSCL HEART DISEASE OF [place] COR ART W 01/20/2016 ISABEL HUMPHREYS MD [...] (SEVERE) 01/20/2016 ISABEL HUMPHREYS MD Ot Z79.4 ANALYTICAL SCIENCES DIRECTOR (CURRENT) USE OF INSULIN 01/20/2016 ISABEL HUMPHREYS [...] MD Ot I25.110 ATHSCL HEART DISEASE OF [place] COR ART W 01/20/2016 ISABEL HUMPHREYS MD [...] (SEVERE) 01/20/2016 ISABEL HUMPHREYS MD, Ot Z79.4 INTERMEDIATE (CURRENT) USE OF INSULIN 01/20/2016 ISABEL HUMPHREYS [...] MD Ot I25.10 ATHSCL HEART DISEASE OF [place] CORONARY 01/20/2016 ISABEL HUMPHREYS MD Ot I25.110 ATHSCL HEART DISEASE OF [place] COR ART W 01/20/2016 ISABEL HUMPHREYS MD [...] J44.9 CHRONIC OBSTRUCTIVE PULMONARY DISEASE, U 01/20/2016 SIABEL HUMPHREYS MD, Ot K21.9 GASTRO-ESOPHAGEAL REFLUX DISEASE WITHOUT 01/20/2016 ISABEL HUMPHREYS MD Ot M79.7 FIBROMYALGIA 01/20/2016 ISABEL HUMPHREYS MD, Ot M79.89 OTHER SPECIFIED SOFT TISSUE DISORDERS 01/20/2016 ISABEL HUMPHREYS MD, Ot N17.9 ACUTE KIDNEY FAILURE, UNSPECIFIED 01/20/2016 ISABEL HUMPHREYS MD, Ot N18.4 CHRONIC KIDNEY DISEASE, STAGE 4 (SEVERE) 01/20/2016 ISABEL HUMPHREYS MD, Ot Z79.4 INTERMEDIATE (CURRENT) USE OF INSULIN 01/20/2016 ISABEL HUMPHREYS [...] E11.22 TYPE 2 DIABETES MELLITUS W DIABETIC FOOD GENERAL MANAGER 01/28/2016 MALVIN PAYAN MD, Ot E66.01 MORBID (SEVERE) OBESITY DUE TO EXCESS CA 01/28/2016 MALVIN PAYAN MD, Ot E83.42 HYPOMAGNESEMIA 01/28/2016 MALVIN PAYAN MD, Ot F32.9 MAJOR DEPRESSIVE DISORDER, SINGLE EPISOD 01/28/2016 MALVIN PAYAN MD, Ot F41.9 ANXIETY DISORDER, UNSPECIFIED 01/28/2016 MALVIN PAYAN MD Ot I12.9 HYPERTENSIVE CHRONIC KIDNEY DISEASE W ST 01/28/2016 MALVIN PAYAN MD, Ot I25.10 ATHSCL HEART DISEASE OF [place] CORONARY 01/28/2016 MALVIN PAYAN MD Ot I65.23 OCCLUSION AND STENOSIS OF BILATERAL [place] 01/28/2016 MALVIN PAYAN MD Ot N18.9 CHRONIC KIDNEY DISEASE, UNSPECIFIED 01/28/2016 MALVIN PAYAN MD Ot Z68.41 BODY MASS INDEX (BMI) 40.0-44.9, ADULT 01/28/2016 MALVIN PAYAN MD Ot Z79.4 INTERMEDIATE (CURRENT) USE OF INSULIN 01/28/2016 MALVIN PAYAN MD Ot Z79.899 OTHER ANALYTICAL SCIENCES DIRECTOR (CURRENT) DRUG THERAPY 02/25/2016 REJI MA MD, [...] UNSPECIFIED 02/29/2016 GUMARO HEBERT MD, Ot Z79.4 ANALYTICAL SCIENCES DIRECTOR (CURRENT) USE OF INSULIN 02/29/2016 GUMARO HEBERT [...] UNSPECIFIED 03/02/2016 GUMARO HEBERT MD, Ot Z79.4 INTERMEDIATE (CURRENT) USE OF INSULIN 03/02/2016 GUMARO HEBERT [...] UNSPECIFIED 03/06/2016 GUMARO HEBERT MD, Ot Z79.4 ANALYTICAL SCIENCES DIRECTOR (CURRENT) USE OF INSULIN 03/06/2016 GUMARO HEBERT MD Ot Z95.5 PRESENCE OF CORONARY ANGIOPLASTY IMPLANT 03/06/2016 GUMARO HEBERT MD Ot Z99.2 DEPENDENCE ON RENAL DIALYSIS 03/10/2016 MALVIN PAYAN MD Ot D63.1 ANEMIA IN CHRONIC KIDNEY DISEASE 03/10/2016 MALVIN PAYAN MD Ot E03.9 HYPOTHYROIDISM, UNSPECIFIED 03/10/2016 MALVIN PAYAN MD Ot E11.22 TYPE 2 DIABETES MELLITUS W DIABETIC FOOD GENERAL MANAGER 03/10/2016 MALVIN PAYAN MD Ot E66.01 MORBID (SEVERE) OBESITY DUE TO EXCESS CA 03/10/2016 MALVIN PAYAN MD Ot E83.42 HYPOMAGNESEMIA 03/10/2016 MALVIN PAYAN MD Ot F32.9 MAJOR DEPRESSIVE DISORDER, SINGLE EPISOD 03/10/2016 MALVIN PAYAN MD Ot F41.9 ANXIETY DISORDER, UNSPECIFIED 03/10/2016 MALVIN PAYAN MD Ot I12.9 HYPERTENSIVE CHRONIC KIDNEY DISEASE W ST 03/10/2016 MALVIN PAYAN MD Ot I25.10 ATHSCL HEART DISEASE OF [place] CORONARY 03/10/2016 MALVIN PAYAN MD, Ot I65.23 OCCLUSION AND STENOSIS OF BILATERAL [place] 03/10/2016 MALVIN PAYAN MD, Ot N18.9 CHRONIC KIDNEY DISEASE, UNSPECIFIED 03/10/2016 MALVIN PAYAN MD, Ot Z68.41 BODY MASS INDEX (BMI) 40.0-44.9, ADULT 03/10/2016 MALVIN PAYAN MD, Ot Z79.4 INTERMEDIATE (CURRENT) USE OF INSULIN 03/10/2016 MALVIN PAYAN MD, Ot Z79.899 OTHER ANALYTICAL SCIENCES DIRECTOR (CURRENT) DRUG THERAPY 03/12/2016 REJI MA MD, [...] E11.22 TYPE 2 DIABETES MELLITUS W DIABETIC FOOD GENERAL MANAGER 03/23/2016 MALVIN PAYAN MD, Ot E66.01 MORBID (SEVERE) OBESITY DUE TO EXCESS CA 03/23/2016 MALVIN PAYAN MD, Ot E83.42 HYPOMAGNESEMIA 03/23/2016 MALVIN PAYAN MD, Ot F32.9 MAJOR DEPRESSIVE DISORDER, SINGLE EPISOD 03/23/2016 MALVNI PAYAN MD, Ot F41.9 ANXIETY DISORDER, UNSPECIFIED 03/23/2016 MALVIN PAYAN MD, Ot I12.9 HYPERTENSIVE CHRONIC KIDNEY DISEASE W ST 03/23/2016 MALVIN PAYAN MD, Ot I25.10 ATHSCL HEART DISEASE OF [place] CORONARY 03/23/2016 MALVIN PAYAN MD, Ot I65.23 OCCLUSION AND STENOSIS OF [place]IL[place]AL [place] 03/23/2016 MALVIN PAYAN MD, Ot N18.9 CHRONIC KIDNEY DISEASE, UNSPECIFIED 03/23/2016 MALVIN PAYAN MD, Ot Z68.41 BODY MASS INDEX (BMI) 40.0-44.9, ADULT 03/23/2016 MALVIN PAYAN MD, Ot Z79.4 INTERMEDIATE (CURRENT) USE OF INSULIN 03/23/2016 MALVIN PAYAN MD, Ot Z79.899 OTHER INTERMEDIATE (CURRENT) DRUG THERAPY 03/25/2016 MALVIN PAYAN MD, Ot D63.1 ANEMIA IN CHRONIC KIDNEY DISEASE 03/25/2016 MALVIN PAYAN MD Ot E03.9 HYPOTHYROIDISM, UNSPECIFIED 03/25/2016 MALVIN PAYAN MD Ot E11.22 TYPE 2 DIABETES MELLITUS W DIABETIC FOOD GENERAL MANAGER 03/25/2016 MALVIN PAYAN MD, Ot E66.01 MORBID (SEVERE) OBESITY DUE TO EXCESS CA 03/25/2016 MALVIN PAYAN MD, Ot E83.42 HYPOMAGNESEMIA 03/25/2016 MALVIN PAYAN MD, Ot F32.9 MAJOR DEPRESSIVE DISORDER, SINGLE EPISOD 03/25/2016 MALVIN PAYAN MD, Ot F41.9 ANXIETY DISORDER, UNSPECIFIED 03/25/2016 MALVIN PAYAN MD, Ot I12.9 HYPERTENSIVE CHRONIC KIDNEY DISEASE W ST 03/25/2016 MALVIN PAYAN MD, Ot I25.10 ATHSCL HEART DISEASE OF [place] CORONARY 03/25/2016 MALVIN PAYAN MD Ot I65.23 OCCLUSION AND STENOSIS OF BILATERAL [place] 03/25/2016 MALVIN PAYAN MD, Ot N18.9 CHRONIC KIDNEY DISEASE, UNSPECIFIED 03/25/2016 MALVIN PAYAN MD Ot Z68.41 BODY MASS INDEX (BMI) 40.0-44.9, ADULT 03/25/2016 MALVIN PAYAN MD, Ot Z79.4 ANALYTICAL SCIENCES DIRECTOR (CURRENT) USE OF INSULIN 03/25/2016 MALVIN PAYAN MD, Ot Z79.899 OTHER INTERMEDIATE (CURRENT) DRUG THERAPY 04/23/2016 MALVIN PAYAN MD, Ot D63.1 ANEMIA IN CHRONIC KIDNEY DISEASE 04/23/2016 MALVIN PAYAN MD, Ot E03.9 HYPOTHYROIDISM, UNSPECIFIED 04/23/2016 MALVIN PAYAN MD, Ot E11.22 TYPE 2 DIABETES MELLITUS W DIABETIC FOOD GENERAL MANAGER 04/23/2016 MALVIN PAYAN MD, Ot E66.01 MORBID (SEVERE) OBESITY DUE TO EXCESS CA 04/23/2016 MALVIN PAYAN MD, Ot E83.42 HYPOMAGNESEMIA 04/23/2016 MALVIN PAYAN MD, Ot F32.9 MAJOR DEPRESSIVE DISORDER, SINGLE EPISOD 04/23/2016 MALVIN PAYAN MD, Ot F41.9 ANXIETY DISORDER, UNSPECIFIED 04/23/2016 MALVIN PAYAN MD Ot I12.9 HYPERTENSIVE CHRONIC KIDNEY DISEASE W ST 04/23/2016 MALVIN PAYAN MD Ot I25.10 ATHSCL HEART DISEASE OF [place] CORONARY 04/23/2016 MALVIN PAYAN MD, Ot I65.23 OCCLUSION AND STENOSIS OF [place]ILATERAL [place] 04/23/2016 MALVIN PAYAN MD, Ot N18.9 CHRONIC KIDNEY DISEASE, UNSPECIFIED 04/23/2016 MALVIN PAYAN MD, Ot Z68.41 BODY MASS INDEX (BMI) 40.0-44.9, ADULT 04/23/2016 MALVIN PAYAN MD, Ot Z79.4 INTERMEDIATE (CURRENT) USE OF INSULIN 04/23/2016 MALVIN PAYAN MD, Ot Z79.899 OTHER INTERMEDIATE (CURRENT) DRUG THERAPY 05/07/2016 REJI MA MD, [...] K Ot I25.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 [place] COR ART W 05/20/2016 JESSIKA DO ANNE MARIE K Ot I51.7 CARDIOMEGALY 05/20/2016 JESSIKA DO, ANNE MARIE K Ot J44.9 CHRONIC OBSTRUCTIVE PULMONARY DISEASE, U 05/20/2016 JESSIKA DO, ANNE MARIE K Ot N18.6 END STAGE RENAL DISEASE 05/20/2016 JESSIKA DO ANNE MARIE K Ot R07.9 CHEST PAIN, UNSPECIFIED 05/20/2016 JESSIKA DO ANNE MARIE K Ot Z79.4 ANALYTICAL SCIENCES DIRECTOR (CURRENT) USE OF INSULIN 05/20/2016 JESSIKA DO ANNE MARIE K Ot Z79.82 INTERMEDIATE (CURRENT) USE OF ASPIRIN 05/20/2016 JESSIKA DO ANNE MARIE K Ot Z79.899 OTHER ANALYTICAL SCIENCES DIRECTOR (CURRENT) DRUG THERAPY 05/20/2016 JESSIKA DO ANNE [...] K Ot I25.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 [place] COR ART W 05/21/2016 JESSIKA ANNE MARIE HUMMEL Ot I51.7 CARDIOMEGALY 05/21/2016 JESSIKA ANNE MARIE HUMMEL K Ot J44.9 CHRONIC OBSTRUCTIVE PULMONARY DISEASE, U 05/21/2016 JESSIKA GEORGE HUMMELA K Ot N18.6 END STAGE RENAL DISEASE 05/21/2016 JESSIKA GEORGE HUMMELA K Ot R07.9 CHEST PAIN, UNSPECIFIED 05/21/2016 JESSIKA GEORGE HUMMELA K Ot Z79.4 INTERMEDIATE (CURRENT) USE OF INSULIN 05/21/2016 JESSIKA GEORGE HUMMELA K Ot Z79.82 INTERMEDIATE (CURRENT) USE OF ASPIRIN 05/21/2016 JESSIKA ANNE MARIE HUMMEL K Ot Z79.899 OTHER ANALYTICAL SCIENCES DIRECTOR (CURRENT) DRUG THERAPY 05/21/2016 ANNE MARIE ROSEN DO K Ot Z95.5 PRESENCE OF CORONARY ANGIOPLASTY IMPLANT 05/21/2016 ANNE MARIE ROSEN DO K Ot Z99.2 DEPENDENCE ON RENAL DIALYSIS 05/27/2016 Ot 414.01 CORONARY ATHEROSCLEROSIS OF [place] CORON 05/27/2016 Ot 272.4 HYPERLIPIDEMIA NEC/NOS 05/27/2016 Ot V58.69 OTH MED,LT,CURRENT USE 05/27/2016 Ot 414.00 CORON ATHEROSCLER NOS TYPE VESSEL, NATIV 05/27/2016 JULIANN MARSH, ISABEL R Ot 300.00 ANXIETY STATE NOS 05/27/2016 ISABEL HUMPHREYS MD Ot 311 DEPRESSIVE DISORDER NEC 05/27/2016 MARIBELL MARAVILLA GRIT REMOVAL OPERATOR Ot 790.6 ABN BLOOD CHEMISTRY NEC 05/27/2016 JULIANN MARSH, ISABEL R Ot 285.9 ANEMIA NOS 05/27/2016 JULIANN MARSH, ISABEL R Ot 460 ACUTE NASOPHARYNGITIS 05/27/2016 MARIBELL MARAVILLA GRIT REMOVAL OPERATOR Ot 272.4 HYPERLIPIDEMIA NEC/NOS 05/27/2016 MARIBELL MARAVILLA GRIT REMOVAL OPERATOR Ot 401.9 HYPERTENSION NOS 05/27/2016 MARIBELL MARAVILLA GRIT REMOVAL OPERATOR Ot 414.00 CORON ATHEROSCLER NOS TYPE VESSEL, [...] CCDS Ot I25.10 ATHSCL HEART DISEASE OF [place] CORONARY 05/27/2016 DAVE MARSH FAC, ALI FACP CCDS Ot J43.8 OTHER EMPHYSEMA 05/27/2016 NICOLETTE MARSH, DULCE Ot E11.9 TYPE 2 DIABETES MELLITUS WITHOUT COMPLIC 05/27/2016 NICOLETTE MARSH, DULCE Ot E66.9 OBESITY, UNSPECIFIED 05/27/2016 NICOLETTE MARSH, DULCE Ot I12.9 HYPERTENSIVE CHRONIC KIDNEY DISEASE W ST 05/27/2016 NICOLETTE MARSH, DULCE Ot I25.10 ATHSCL HEART DISEASE OF [place] CORONARY 05/27/2016 NICOLETTE MARSH, DULCE Ot J44.9 [...] CCDS Ot I25.10 ATHSCL HEART DISEASE OF [place] CORONARY 05/27/2016 DAVE CHAVEZC, ALI FACP CCDS [...] DIABETES MELLITUS WITHOUT COMPLIC 05/27/2016 [facility]AVE [facility]SH [facility], ALI FACP CCDS Ot I25.10 ATHSCL HEART DISEASE OF [place] CORONARY 05/27/2016 DAVE CHAVEZ, ALI FACP CCDS [...] E11.22 TYPE 2 DIABETES MELLITUS W DIABETIC FOOD GENERAL MANAGER 05/27/2016 MALVIN PAYAN MD, Ot E66.01 MORBID (SEVERE) OBESITY DUE TO EXCESS CA 05/27/2016 MALVIN PAYAN MD, Ot E83.42 HYPOMAGNESEMIA 05/27/2016 MALVIN PAYAN MD, Ot F32.9 MAJOR DEPRESSIVE DISORDER, SINGLE EPISOD 05/27/2016 MALVIN PAYAN MD, Ot F41.9 ANXIETY DISORDER, UNSPECIFIED 05/27/2016 MALVIN PAYAN MD, Ot I12.9 HYPERTENSIVE CHRONIC KIDNEY DISEASE W ST 05/27/2016 MALVIN PAYAN MD, Ot I25.10 ATHSCL HEART DISEASE OF [place] CORONARY 05/27/2016 MALVIN PAYAN MD, Ot I65.23 OCCLUSION AND STENOSIS OF BILATERAL [place] 05/27/2016 MALVIN PAYAN MD, Ot N18.9 CHRONIC KIDNEY DISEASE, UNSPECIFIED 05/27/2016 MALVIN PAYAN MD, Ot Z68.41 BODY MASS INDEX (BMI) 40.0-44.9, ADULT 05/27/2016 MALVIN PAYAN MD Ot Z79.4 INTERMEDIATE (CURRENT) USE OF INSULIN 05/27/2016 MALVIN PAYAN MD, Ot Z79.899 OTHER ANALYTICAL SCIENCES DIRECTOR (CURRENT) DRUG THERAPY 05/28/2016 MARIBELL MARAVILLA GRIT REMOVAL OPERATOR Ot 272.4 HYPERLIPIDEMIA NEC/NOS 05/28/2016 MARIBELL MARAVILLA GRIT REMOVAL OPERATOR Ot 401.9 HYPERTENSION NOS 05/28/2016 MARIBELL MARAVILLA Ot 414.00 CORON ATHEROSCLER NOS TYPE VESSEL, NATIV 06/15/2016 MALVIN PAYAN MD Ot D63.1 ANEMIA IN CHRONIC KIDNEY DISEASE 06/15/2016 MALVIN PAYAN MD Ot E03.9 HYPOTHYROIDISM, UNSPECIFIED 06/15/2016 MALVIN PAYAN MD Ot E11.22 TYPE 2 DIABETES MELLITUS W DIABETIC FOOD GENERAL MANAGER 06/15/2016 MALVIN PAYAN MD Ot E66.01 MORBID (SEVERE) OBESITY DUE TO EXCESS CA 06/15/2016 MALVIN PAYAN MD, Ot E83.42 HYPOMAGNESEMIA 06/15/2016 MALVIN PAYAN MD, Ot F32.9 MAJOR DEPRESSIVE DISORDER, SINGLE EPISOD 06/15/2016 MALVIN PAYAN MD, Ot F41.9 ANXIETY DISORDER, UNSPECIFIED 06/15/2016 MALVIN PAYAN MD Ot I12.9 HYPERTENSIVE CHRONIC KIDNEY DISEASE W ST 06/15/2016 MALVIN PAYAN MD Ot I25.10 ATHSCL HEART DISEASE OF [place] CORONARY 06/15/2016 MALVIN PAYAN MD Ot I65.23 OCCLUSION AND STENOSIS OF BILATERAL [place] 06/15/2016 MALVIN PAYAN MD Ot N18.9 CHRONIC KIDNEY DISEASE, UNSPECIFIED 06/15/2016 MALVIN PAYAN MD Ot Z68.41 BODY MASS INDEX (BMI) 40.0-44.9, ADULT 06/15/2016 MALVIN PAYAN MD Ot Z79.4 INTERMEDIATE (CURRENT) USE OF INSULIN 06/15/2016 MALVIN PAYAN MD, Ot Z79.899 OTHER INTERMEDIATE (CURRENT) DRUG THERAPY 07/01/2016 MALVIN PAYAN MD Ot D63.1 ANEMIA IN CHRONIC KIDNEY DISEASE 07/01/2016 MALVIN PAYAN MD Ot E03.9 HYPOTHYROIDISM, UNSPECIFIED 07/01/2016 MALVIN PAYAN MD Ot E11.22 TYPE 2 DIABETES MELLITUS W DIABETIC FOOD GENERAL MANAGER 07/01/2016 MALVIN PAYAN MD Ot E66.01 MORBID (SEVERE) OBESITY DUE TO EXCESS CA 07/01/2016 MALVIN APYAN MD Ot E83.42 HYPOMAGNESEMIA 07/01/2016 MALVIN PAYAN MD Ot F32.9 MAJOR DEPRESSIVE DISORDER, SINGLE EPISOD 07/01/2016 MALVIN PAYAN MD Ot F41.9 ANXIETY DISORDER, UNSPECIFIED 07/01/2016 MALVIN PAYAN MD Ot I12.9 HYPERTENSIVE CHRONIC KIDNEY DISEASE W ST 07/01/2016 MALVIN PAYAN MD, Ot I25.10 ATHSCL HEART DISEASE OF [place] CORONARY 07/01/2016 MALVIN PAYAN MD, Ot I65.23 OCCLUSION AND STENOSIS OF [place]ILATERAL [place] 07/01/2016 MALVIN PAYAN MD, Ot N18.9 CHRONIC KIDNEY DISEASE, UNSPECIFIED 07/01/2016 MALVIN PAYAN MD, Ot Z68.41 BODY MASS INDEX (BMI) 40.0-44.9, ADULT 07/01/2016 MALVIN PAYAN MD, Ot Z79.4 INTERMEDIATE (CURRENT) USE OF INSULIN 07/01/2016 MALVIN PAYAN MD, Ot Z79.899 OTHER ANALYTICAL SCIENCES DIRECTOR (CURRENT) DRUG THERAPY 07/22/2016 MALVIN PAYAN MD, Ot D63.1 ANEMIA IN CHRONIC KIDNEY DISEASE 07/22/2016 MALVIN PAYAN MD, Ot E03.9 HYPOTHYROIDISM, UNSPECIFIED 07/22/2016 MALVIN PAYAN MD, Ot E11.22 TYPE 2 DIABETES MELLITUS W DIABETIC FOOD GENERAL MANAGER 07/22/2016 MALVNI PAYAN MD, Ot E66.01 MORBID (SEVERE) OBESITY DUE TO EXCESS CA 07/22/2016 MALVIN PAYAN MD, Ot E83.42 HYPOMAGNESEMIA 07/22/2016 MALVIN PAYAN MD, Ot F32.9 MAJOR DEPRESSIVE DISORDER, SINGLE EPISOD 07/22/2016 MALVIN PAYAN MD, Ot F41.9 ANXIETY DISORDER, UNSPECIFIED 07/22/2016 MALVIN PAYAN MD, Ot I12.9 HYPERTENSIVE CHRONIC KIDNEY DISEASE W ST 07/22/2016 MALVIN PAYAN MD, Ot I25.10 ATHSCL HEART DISEASE OF [place] CORONARY 07/22/2016 MALVIN PAYAN MD, Ot I65.23 OCCLUSION AND STENOSIS OF BILATERAL [place] 07/22/2016 MALVIN PAYAN MD, Ot N18.9 CHRONIC KIDNEY DISEASE, UNSPECIFIED 07/22/2016 MALVIN PAYAN MD, Ot Z45.2 ENCOUNTER FOR ADJUSTMENT AND MANAGEMENT 07/22/2016 MALVIN PAYAN MD, Ot Z68.41 BODY MASS INDEX (BMI) 40.0-44.9, ADULT 07/22/2016 MALVIN PAYAN MD, Ot Z79.4 INTERMEDIATE (CURRENT) USE OF INSULIN 07/22/2016 MALVIN PAYAN MD, Ot Z79.899 OTHER ANALYTICAL SCIENCES DIRECTOR (CURRENT) DRUG THERAPY 07/23/2016 Ot 272.4 HYPERLIPIDEMIA NEC/NOS 07/23/2016 Ot V58.69 OTH MED,LT,CURRENT USE 07/23/2016 Ot 414.00 CORON ATHEROSCLER NOS TYPE VESSEL, NATIV 07/23/2016 JULIANN MARSH, ISABEL R Ot 300.00 ANXIETY STATE NOS 07/23/2016 JULIANN MARSH ISABEL R Ot 311 DEPRESSIVE DISORDER NEC 07/23/2016 MARIBELL MARAVILLA GRIT REMOVAL OPERATOR Ot 790.6 ABN BLOOD CHEMISTRY NEC 07/23/2016 JONI HUMPHREYS MDYD R Ot 285.9 ANEMIA NOS 07/23/2016 JULIANN MARSH ISABEL R Ot 460 ACUTE NASOPHARYNGITIS 07/23/2016 MARIBELL MARAVILLA L GRIT REMOVAL OPERATOR Ot 272.4 HYPERLIPIDEMIA NEC/NOS 07/23/2016 TAIWO MARIBELL L GRIT REMOVAL OPERATOR Ot 401.9 HYPERTENSION NOS 07/23/2016 LEONIDES MARAVILLAHER L GRIT REMOVAL OPERATOR Ot 414.00 CORON ATHEROSCLER NOS TYPE VESSEL, [...] Ot I10 ESSENTIAL (PRIMARY) HYPERTENSION 07/23/2016 DAVE MRASH FACC, ALI FACP CCDS Ot I25.10 ATHSCL HEART DISEASE OF [place] CORONARY 07/23/2016 DAVE MARSH FACC, ALI FACP CCDS Ot J43.8 OTHER EMPHYSEMA 07/23/2016 DULCE WILL MD Ot E11.9 TYPE 2 DIABETES MELLITUS WITHOUT COMPLIC 07/23/2016 NICOLETTE MD, DULCE Ot E66.9 OBESITY, UNSPECIFIED 07/23/2016 NICOLETTE MARSH, DULCE Ot I12.9 HYPERTENSIVE CHRONIC KIDNEY DISEASE W ST 07/23/2016 NICOLETTE MARSH, DULCE Ot I25.10 ATHSCL HEART DISEASE OF [place] CORONARY 07/23/2016 NICOLETTE MARSH, DULCE Ot J44.9 [...] CCDS Ot I25.10 ATHSCL HEART DISEASE OF [place] CORONARY 07/23/2016 DAVE MARSH FACC, ALI FACP [...] CCDS Ot I25.10 ATHSCL HEART DISEASE OF [place] CORONARY 07/23/2016 DAVE MARSH FACC, ALI FACP [...] E11.22 TYPE 2 DIABETES MELLITUS W DIABETIC FOOD GENERAL MANAGER 07/23/2016 ORA MARSH, MALVIN Darden Ot E66.01 MORBID (SEVERE) OBESITY DUE TO EXCESS CA 07/23/2016 MALVIN PAYAN MD Ot E83.42 HYPOMAGNESEMIA 07/23/2016 MALVIN PAYAN MD Ot F32.9 MAJOR DEPRESSIVE DISORDER, SINGLE EPISOD 07/23/2016 MALVIN PAYAN MD Ot F41.9 ANXIETY DISORDER, UNSPECIFIED 07/23/2016 MALVIN PAYAN MD Ot I12.9 HYPERTENSIVE CHRONIC KIDNEY DISEASE W ST 07/23/2016 MALVIN PAYAN MD Ot I25.10 ATHSCL HEART DISEASE OF [place] CORONARY 07/23/2016 MALVIN PAYAN MD, Ot I65.23 OCCLUSION AND STENOSIS OF BILATERAL [place] 07/23/2016 MALVIN PAYAN MD Ot N18.9 CHRONIC KIDNEY DISEASE, UNSPECIFIED 07/23/2016 MALVIN PAYAN MD, Ot Z45.2 ENCOUNTER FOR ADJUSTMENT AND MANAGEMENT 07/23/2016 MALVIN PAYAN MD, Ot Z68.41 BODY MASS INDEX (BMI) 40.0-44.9, ADULT 07/23/2016 MALVIN PAYAN MD, Ot Z79.4 INTERMEDIATE (CURRENT) USE OF INSULIN 07/23/2016 MALVIN PAYAN MD, Ot Z79.899 OTHER INTERMEDIATE (CURRENT) DRUG THERAPY 08/10/2016 BIBI MARSH, ANTONIO [...] MD Ot I25.10 ATHSCL HEART DISEASE OF [place] CORONARY 08/14/2016 VERNON COLLIER MD, Ot J44.9 CHRONIC OBSTRUCTIVE PULMONARY DISEASE , U 08/14/2016 VERNON COLLIER MD, Ot N18.6 END STAGE RENAL DISEASE 08/14/2016 VERNON COLLIER MD Ot R06.02 SHORTNESS OF BREATH 08/14/2016 VERNON COLLIER MD Ot R07.9 CHEST PAIN, UNSPECIFIED 08/14/2016 VERNON COLLIER MD, Ot Z79.02 ANALYTICAL SCIENCES DIRECTOR (CURRENT) USE OF ANTITHROMBOTI 08/14/2016 VERNON COLLIER MD Ot Z79.4 INTERMEDIATE (CURRENT) USE OF INSULIN 08/14/2016 VERNON COLLIER MD Ot Z79.82 INTERMEDIATE (CURRENT) USE OF ASPIRIN 08/14/2016 VERNON COLLIER MD, Ot Z79.899 OTHER INTERMEDIATE (CURRENT) DRUG THERAPY 08/14/2016 VERNON COLLIER MD [...] MD Ot I25.10 ATHSCL HEART DISEASE OF [place] CORONARY 08/14/2016 VERNON COLLIER MD Ot J44.9 CHRONIC OBSTRUCTIVE PULMONARY DISEASE , U 08/14/2016 VERNON COLLIER MD, Ot N18.6 END STAGE RENAL DISEASE 08/14/2016 VERNON COLLIER MD Ot R06.02 SHORTNESS OF BREATH 08/14/2016 VERNON COLILER MD Ot R07.9 CHEST PAIN, UNSPECIFIED 08/14/2016 VERNON COLLIER MD Ot Z79.02 ANALYTICAL SCIENCES DIRECTOR (CURRENT) USE OF ANTITHROMBOTI 08/14/2016 VERNON COLLIER MD Ot Z79.4 INTERMEDIATE (CURRENT) USE OF INSULIN 08/14/2016 VERNON COLLIER MD, Ot Z79.82 INTERMEDIATE (CURRENT) USE OF ASPIRIN 08/14/2016 VERNON COLLIER MD Ot Z79.899 OTHER ANALYTICAL SCIENCES DIRECTOR (CURRENT) DRUG THERAPY 08/14/2016 VERNON COLLIER MD, [...] MD Ot I25.10 ATHSCL HEART DISEASE OF [place] CORONARY 08/18/2016 VERNON COLLIER MD, Ot J44.9 CHRONIC OBSTRUCTIVE PULMONARY DISEASE , U 08/18/2016 VERNON COLLIER MD, Ot N18.6 END STAGE RENAL DISEASE 08/18/2016 VERNON COLLIER MD Ot R06.02 SHORTNESS OF BREATH 08/18/2016 VERNON COLLIER MD Ot R07.9 CHEST PAIN, UNSPECIFIED 08/18/2016 VERNON COLLIER MD Ot Z79.02 INTERMEDIATE (CURRENT) USE OF ANTITHROMBOTI 08/18/2016 VERNON COLLIER MD Ot Z79.4 INTERMEDIATE (CURRENT) USE OF INSULIN 08/18/2016 VERNON COLLIER MD, Ot Z79.82 ANALYTICAL SCIENCES DIRECTOR (CURRENT) USE OF ASPIRIN 08/18/2016 VERNON COLLIER MD, Ot Z79.899 OTHER ANALYTICAL SCIENCES DIRECTOR (CURRENT) DRUG THERAPY 08/18/2016 VERNON COLLIER MD [...] PAIN 08/24/2016 VERNON COLLIER MD Ot Z79.4 ANALYTICAL SCIENCES DIRECTOR (CURRENT) USE OF INSULIN 08/24/2016 VERNON COLLIER MD Ot Z79.82 ANALYTICAL SCIENCES DIRECTOR (CURRENT) USE OF ASPIRIN 08/24/2016 VERNON COLLIER MD Ot Z79.899 OTHER ANALYTICAL SCIENCES DIRECTOR (CURRENT) DRUG THERAPY 08/25/2016 VERNON COLLIER MD [...] PAIN 08/25/2016 VERNON COLLIER MD Ot Z79.4 ANALYTICAL SCIENCES DIRECTOR (CURRENT) USE OF INSULIN 08/25/2016 VERNON COLLIER MD Ot Z79.82 INTERMEDIATE (CURRENT) USE OF ASPIRIN 08/25/2016 AMIRA MARSH, VERNON Cardona Ot Z79.899 OTHER INTERMEDIATE (CURRENT) DRUG THERAPY 09/23/2016 JESSIKA DO, ANNE MARIE K Ot E11.65 TYPE 2 DIABETES MELLITUS WITH HYPERGLYCE 09/23/2016 JESSIKA DO, ANNE MARIE K Ot I12.0 HYP CHR KIDNEY DISEASE W STAGE 5 CHR KID 09/23/2016 JESSIKA DO, ANNE MARIE K Ot I25.10 ATHSCL HEART DISEASE OF [place] CORONARY 09/23/2016 JESSIKA DO, ANNE MARIE K [...] JESSIKA DO, ANNE MARIE K Ot Z79.02 INTERMEDIATE (CURRENT) USE OF ANTITHROMBOTI 09/23/2016 JESSIKA DO, ANNE MARIE K Ot Z79.4 ANALYTICAL SCIENCES DIRECTOR (CURRENT) USE OF INSULIN 09/23/2016 JESSIKA DO, ANNE MARIE K Ot Z79.82 ANALYTICAL SCIENCES DIRECTOR (CURRENT) USE OF ASPIRIN 09/23/2016 JESSIKA DO, ANNE MARIE K Ot Z79.899 OTHER ANALYTICAL SCIENCES DIRECTOR (CURRENT) DRUG THERAPY 09/23/2016 JESSIKA DO, ANNE MARIE K Ot Z95.5 PRESENCE OF CORONARY ANGIOPLASTY IMPLANT 09/23/2016 JESSIKA DO, ANNE MARIE K Ot Z99.81 DEPENDENCE ON SUPPLEMENTAL OXYGEN 09/28/2016 MALVIN PAYAN MD Ot D63.1 ANEMIA IN CHRONIC KIDNEY DISEASE 09/28/2016 MALVIN PAYAN MD, Ot E03.9 HYPOTHYROIDISM, UNSPECIFIED 09/28/2016 MALVIN PAYAN MD Ot E11.22 TYPE 2 DIABETES MELLITUS W DIABETIC FOOD GENERAL MANAGER 09/28/2016 MALVIN PAYAN MD Ot E66.01 MORBID (SEVERE) OBESITY DUE TO EXCESS CA 09/28/2016 ORA MD, MALVIN K Ot E83.42 HYPOMAGNESEMIA 09/28/2016 MALVIN PAYAN MD Ot F32.9 MAJOR DEPRESSIVE DISORDER, SINGLE EPISOD 09/28/2016 MALVIN PAYAN MD, Ot F41.9 ANXIETY DISORDER, UNSPECIFIED 09/28/2016 MALVIN PAYAN MD, Ot I12.9 HYPERTENSIVE CHRONIC KIDNEY DISEASE W ST 09/28/2016 MALVIN PAYAN MD Ot I25.10 ATHSCL HEART DISEASE OF [place] CORONARY 09/28/2016 MALVIN PAYAN MD Ot I65.23 OCCLUSION AND STENOSIS OF BILATERAL [place] 09/28/2016 MALVIN PAYAN MD Ot N18.9 CHRONIC KIDNEY DISEASE, UNSPECIFIED 09/28/2016 MALVIN PAYAN MD, Ot Z45.2 ENCOUNTER FOR ADJUSTMENT AND MANAGEMENT 09/28/2016 MALVIN PAYAN MD, Ot Z68.41 BODY MASS INDEX (BMI) 40.0-44.9, ADULT 09/28/2016 MALVIN PAYAN MD, Ot Z79.4 INTERMEDIATE (CURRENT) USE OF INSULIN 09/28/2016 MALVIN PAYAN MD, Ot Z79.899 OTHER INTERMEDIATE (CURRENT) DRUG THERAPY 10/01/2016 JESSIKA HUMMEL ANNE MARIE K Ot E11.65 TYPE 2 DIABETES MELLITUS WITH HYPERGLYCE 10/01/2016 JESSIKA HUMMEL ANNE MARIE K Ot I12.0 HYP CHR KIDNEY DISEASE W STAGE 5 CHR KID 10/01/2016 JESSIKA HUMMEL ANNE MARIE K Ot I25.10 ATHSCL HEART DISEASE OF [place] CORONARY 10/01/2016 JESSIKA HUMMEL ANNE MARIE K [...] 10/01/2016 GEORGE ROSEN DOA K Ot Z79.02 ANALYTICAL SCIENCES DIRECTOR (CURRENT) USE OF ANTITHROMBOTI 10/01/2016 GEORGE ROSEN DOA Adelso Ot Z79.4 ANALYTICAL SCIENCES DIRECTOR (CURRENT) USE OF INSULIN 10/01/2016 ANNE MARIE ROSEN DO, Ot Z79.82 INTERMEDIATE (CURRENT) USE OF ASPIRIN 10/01/2016 ANNE MARIE ROSEN DO, Ot Z79.899 OTHER INTERMEDIATE (CURRENT) DRUG THERAPY 10/01/2016 ANNE MARIE ROSEN DO, Ot Z95.5 PRESENCE OF CORONARY ANGIOPLASTY IMPLANT 10/01/2016 ANNE MARIE ROSEN DO, Ot Z99.81 DEPENDENCE ON SUPPLEMENTAL OXYGEN 10/05/2016 MALVIN PAYAN MD, Ot D63.1 ANEMIA IN CHRONIC KIDNEY DISEASE 10/05/2016 MALVIN PAYAN MD, Ot E03.9 HYPOTHYROIDISM, UNSPECIFIED 10/05/2016 MALVIN PAYAN MD, Ot E11.22 TYPE 2 DIABETES MELLITUS W DIABETIC FOOD GENERAL MANAGER 10/05/2016 MALVIN PAYAN MD, Ot E66.01 MORBID (SEVERE) OBESITY DUE TO EXCESS CA 10/05/2016 MALVIN PAYAN MD, Ot E83.42 HYPOMAGNESEMIA 10/05/2016 MALVIN PAYAN MD, Ot F32.9 MAJOR DEPRESSIVE DISORDER, SINGLE EPISOD 10/05/2016 MALVIN PAYAN MD, Ot F41.9 ANXIETY DISORDER, UNSPECIFIED 10/05/2016 MALVIN PAYAN MD, Ot I12.9 HYPERTENSIVE CHRONIC KIDNEY DISEASE W ST 10/05/2016 MALVIN PAYAN MD, Ot I25.10 ATHSCL HEART DISEASE OF [place] CORONARY 10/05/2016 MALVIN PAYAN MD, Ot I65.23 OCCLUSION AND STENOSIS OF BILATERAL [place] 10/05/2016 MALVIN PAYAN MD, Ot N18.9 CHRONIC KIDNEY DISEASE, UNSPECIFIED 10/05/2016 MALVIN PAYAN MD, Ot Z45.2 ENCOUNTER FOR ADJUSTMENT AND MANAGEMENT 10/05/2016 MALVIN PAYAN MD, Ot Z68.41 BODY MASS INDEX (BMI) 40.0-44.9, ADULT 10/05/2016 MALVIN PAYAN MD, Ot Z79.4 INTERMEDIATE (CURRENT) USE OF INSULIN 10/05/2016 MALVIN PAYAN MD, Ot Z79.899 OTHER ANALYTICAL SCIENCES DIRECTOR (CURRENT) DRUG THERAPY 10/08/2016 MALVIN PAYAN MD, Ot D63.1 ANEMIA IN CHRONIC KIDNEY DISEASE 10/08/2016 MALVIN PAYAN MD, Ot E03.9 HYPOTHYROIDISM, UNSPECIFIED 10/08/2016 MALVIN PAYAN MD, Ot E11.22 TYPE 2 DIABETES MELLITUS W DIABETIC FOOD GENERAL MANAGER 10/08/2016 MALVIN PAYAN MD, Ot E66.01 MORBID (SEVERE) OBESITY DUE TO EXCESS CA 10/08/2016 MALVIN PAYAN MD Ot E83.42 HYPOMAGNESEMIA 10/08/2016 MALVIN PAYAN MD, Ot F32.9 MAJOR DEPRESSIVE DISORDER, SINGLE EPISOD 10/08/2016 MALVIN PAYAN MD, Ot F41.9 ANXIETY DISORDER, UNSPECIFIED 10/08/2016 MALVIN PAYAN MD Ot I12.9 HYPERTENSIVE CHRONIC KIDNEY DISEASE W ST 10/08/2016 MALVIN PAYAN MD, Ot I25.10 ATHSCL HEART DISEASE OF [place] CORONARY 10/08/2016 MALVIN PAYAN MD, Ot I65.23 OCCLUSION AND STENOSIS OF BILATERAL [place] 10/08/2016 MALVIN PAYAN MD, Ot N18.9 CHRONIC KIDNEY DISEASE, UNSPECIFIED 10/08/2016 MALVIN PAYAN MD, Ot Z45.2 ENCOUNTER FOR ADJUSTMENT AND MANAGEMENT 10/08/2016 MALVIN PAAYN MD, Ot Z68.41 BODY MASS INDEX (BMI) 40.0-44.9, ADULT 10/08/2016 MALVIN PAYAN MD, Ot Z79.4 ANALYTICAL SCIENCES DIRECTOR (CURRENT) USE OF INSULIN 10/08/2016 MALVIN PAYAN MD, Ot Z79.899 OTHER ANALYTICAL SCIENCES DIRECTOR (CURRENT) DRUG THERAPY 10/10/2016 GUMARO HEBERT MD Ot E11.9 TYPE 2 DIABETES MELLITUS WITHOUT COMPLIC 10/10/2016 GUMARO HEBERT MD, Ot I12.0 HYP CHR KIDNEY DISEASE W STAGE 5 CHR KID 10/10/2016 GUMARO HEBERT MD, Ot I25.10 ATHSCL HEART DISEASE OF [place] CORONARY 10/10/2016 GUMARO HEBERT MD, Ot I51.7 CARDIOMEGALY 10/10/2016 GUMARO HEBERT MD Ot N18.6 END STAGE RENAL DISEASE 10/10/2016 GUMARO HEBERT MD Ot R07.9 CHEST PAIN, UNSPECIFIED 10/10/2016 GUMARO HEBERT MD, Ot Z79.02 INTERMEDIATE (CURRENT) USE OF ANTITHROMBOTI 10/10/2016 GUMARO HEBERT MD Ot Z79.4 INTERMEDIATE (CURRENT) USE OF INSULIN 10/10/2016 GUMARO HEBERT MD, Ot Z79.899 OTHER ANALYTICAL SCIENCES DIRECTOR (CURRENT) DRUG THERAPY 10/10/2016 GUMARO HEBERT MD, Ot Z95.5 PRESENCE OF CORONARY ANGIOPLASTY IMPLANT 10/11/2016 GUMARO HEBERT MD Ot E11.9 TYPE 2 DIABETES MELLITUS WITHOUT COMPLIC 10/11/2016 GUMARO HEBERT MD, Ot I12.0 HYP CHR KIDNEY DISEASE W STAGE 5 CHR KID 10/11/2016 GUMARO HEBERT MD, Ot I25.10 ATHSCL HEART DISEASE OF [place] CORONARY 10/11/2016 GUMARO HEBERT MD, Ot I51.7 CARDIOMEGALY 10/11/2016 GUMARO HEBERT MD, Ot N18.6 END STAGE RENAL DISEASE 10/11/2016 GUMARO HEBERT MD, Ot R07.9 CHEST PAIN, UNSPECIFIED 10/11/2016 GUMARO HEBERT MD, Ot Z79.02 ANALYTICAL SCIENCES DIRECTOR (CURRENT) USE OF ANTITHROMBOTI 10/11/2016 GUMARO HEBERT MD, Ot Z79.4 INTERMEDIATE (CURRENT) USE OF INSULIN 10/11/2016 GUMARO HEBERT MD, Ot Z79.899 OTHER INTERMEDIATE (CURRENT) DRUG THERAPY 10/11/2016 GUMARO HEBERT MD, Ot Z95.5 PRESENCE OF CORONARY ANGIOPLASTY IMPLANT 11/18/2016 MALVIN PAYAN MD Ot D63.1 ANEMIA IN CHRONIC KIDNEY DISEASE 11/18/2016 MALVIN PAYAN MD Ot E03.9 HYPOTHYROIDISM, UNSPECIFIED 11/18/2016 MALVIN PAYAN MD Ot E11.22 TYPE 2 DIABETES MELLITUS W DIABETIC FOOD GENERAL MANAGER 11/18/2016 MALVIN PAYAN MD Ot E66.01 MORBID (SEVERE) OBESITY DUE TO EXCESS CA 11/18/2016 MALVIN PAYAN MD Ot E83.42 HYPOMAGNESEMIA 11/18/2016 MALVIN PAYAN MD Ot F32.9 MAJOR DEPRESSIVE DISORDER, SINGLE EPISOD 11/18/2016 MALVIN PAYAN MD Ot F41.9 ANXIETY DISORDER, UNSPECIFIED 11/18/2016 MALVIN PAYAN MD Ot I12.9 HYPERTENSIVE CHRONIC KIDNEY DISEASE W ST 11/18/2016 MALVIN PAYAN MD Ot I25.10 ATHSCL HEART DISEASE OF [place] CORONARY 11/18/2016 MALVIN PAYAN MD Ot I65.23 OCCLUSION AND STENOSIS OF [place]AL [place] 11/18/2016 MALVIN PAYAN MD Ot N18.9 CHRONIC KIDNEY DISEASE, UNSPECIFIED 11/18/2016 MALVIN PAYAN MD, Ot Z68.41 BODY MASS INDEX (BMI) 40.0-44.9, ADULT 11/18/2016 MALVIN PAYAN MD Ot Z79.4 ANALYTICAL SCIENCES DIRECTOR (CURRENT) USE OF INSULIN 11/18/2016 MALVIN PAYAN MD Ot Z79.899 OTHER ANALYTICAL SCIENCES DIRECTOR (CURRENT) DRUG THERAPY 12/18/2016 Ot 414.00 CORON ATHEROSCLER NOS TYPE VESSEL, NATIV 12/18/2016 ISABEL HUMPHREYS MD Ot 300.00 ANXIETY STATE NOS 12/18/2016 ISABEL HUMPHREYS MD R Ot 311 DEPRESSIVE DISORDER NEC 12/18/2016 MARIBELL MARAVILLA GRIT REMOVAL OPERATOR Ot 790.6 ABN BLOOD CHEMISTRY NEC 12/18/2016 ISABEL HUMPHREYS MD Ot 285.9 ANEMIA NOS 12/18/2016 ISABEL HUMPHREYS MD R Ot 460 ACUTE NASOPHARYNGITIS 12/18/2016 MARIBELL MARAVILLA L GRIT REMOVAL OPERATOR Ot 272.4 HYPERLIPIDEMIA NEC/NOS 12/18/2016 MARIBELL MARAVILLA L GRIT REMOVAL OPERATOR Ot 401.9 HYPERTENSION NOS 12/18/2016 MARIBELL MARAVILLA L GRIT REMOVAL OPERATOR Ot 414.00 CORON ATHEROSCLER NOS TYPE VESSEL, [...] CCDS Ot I25.10 ATHSCL HEART DISEASE OF [place] CORONARY 12/18/2016 DAVE MARSH FACC, ALI FACP CCDS Ot J43.8 OTHER EMPHYSEMA 12/18/2016 NICOLETTE MARSH, DULCE Ot E11.9 TYPE 2 DIABETES MELLITUS WITHOUT COMPLIC 12/18/2016 NICOLETTE MARSH, DULCE Ot E66.9 OBESITY, UNSPECIFIED 12/18/2016 NICOLETTE MARSH, DULCE Ot I12.9 HYPERTENSIVE CHRONIC KIDNEY DISEASE W ST 12/18/2016 NICOLETTE MARSH DULCE Ot I25.10 ATHSCL HEART DISEASE OF [place] CORONARY 12/18/2016 NICOLETTE MARSH DULCE Ot J44.9 [...] CCDS Ot I25.10 ATHSCL HEART DISEASE OF [place] CORONARY 12/18/2016 DAVE MARSH FACC, ALI FACP [...] CCDS Ot I25.10 ATHSCL HEART DISEASE OF [place] CORONARY 12/18/2016 DAVE MARSH [facility], ALI FACP CCDS Ot I65.23 OCCLUSION AND [...] E11.22 TYPE 2 DIABETES MELLITUS W DIABETIC FOOD GENERAL MANAGER 12/18/2016 MALVIN PAYAN MD Ot E66.01 MORBID (SEVERE) OBESITY DUE TO EXCESS CA 12/18/2016 MALVIN PAYAN MD Ot E83.42 HYPOMAGNESEMIA 12/18/2016 MALVIN PAYAN MD Ot F32.9 MAJOR DEPRESSIVE DISORDER, SINGLE EPISOD 12/18/2016 MALVIN PAYAN MD Ot F41.9 ANXIETY DISORDER, UNSPECIFIED 12/18/2016 MALVIN PAYAN MD Ot I12.9 HYPERTENSIVE CHRONIC KIDNEY DISEASE W ST 12/18/2016 MALVIN PAYAN MD Ot I25.10 ATHSCL HEART DISEASE OF [place] CORONARY 12/18/2016 MALVIN PAYAN MD Ot I65.23 OCCLUSION AND STENOSIS OF BILATERAL [place] 12/18/2016 MALVIN PAYAN MD Ot N18.9 CHRONIC KIDNEY DISEASE, UNSPECIFIED 12/18/2016 MALVIN PAYAN MD Ot Z68.41 BODY MASS INDEX (BMI) 40.0-44.9, ADULT 12/18/2016 MALVIN PAYAN MD, Ot Z79.4 ANALYTICAL SCIENCES DIRECTOR (CURRENT) USE OF INSULIN 12/18/2016 MALVIN PAYAN MD, Ot Z79.899 OTHER ANALYTICAL SCIENCES DIRECTOR (CURRENT) DRUG THERAPY 12/18/2016 Ot 414.00 CORON ATHEROSCLER NOS TYPE VESSEL, NATIV 12/18/2016 ISABEL HUMPHREYS MD R Ot 300.00 ANXIETY STATE NOS 12/18/2016 ISABEL HUMPHREYS MD Ot 311 DEPRESSIVE DISORDER NEC 12/18/2016 MARIBELL MARAVILLA GRIT REMOVAL OPERATOR Ot 790.6 ABN BLOOD CHEMISTRY NEC 12/18/2016 ISABEL HUMPHREYS MD R Ot 285.9 ANEMIA NOS 12/18/2016 ISABEL HUMPHREYS MD R Ot 460 ACUTE NASOPHARYNGITIS 12/18/2016 MARIBELL MARAVILLA GRIT REMOVAL OPERATOR Ot 272.4 HYPERLIPIDEMIA NEC/NOS 12/18/2016 MARIBELL MARAVILLA GRIT REMOVAL OPERATOR Ot 401.9 HYPERTENSION NOS 12/18/2016 MARIBELL MARAVILLA GRIT REMOVAL OPERATOR Ot 414.00 CORON ATHEROSCLER NOS TYPE VESSEL, [...] CCDS Ot I25.10 ATHSCL HEART DISEASE OF [place] CORONARY 12/18/2016 DAVE MARSH FACC, EARL FACP CCDS Ot J43.8 OTHER EMPHYSEMA 12/18/2016 NICOLETTE MARSH, DULCE Ot E11.9 TYPE 2 DIABETES MELLITUS WITHOUT COMPLIC 12/18/2016 NICOLETTE MARSH, DULCE Ot E66.9 OBESITY, UNSPECIFIED 12/18/2016 NICOLETTE MARSH DULCE Ot I12.9 HYPERTENSIVE CHRONIC KIDNEY DISEASE W ST 12/18/2016 NICOLETTE MARSH, DULCE Ot I25.10 ATHSCL HEART DISEASE OF [place] CORONARY 12/18/2016 NICOLETTE MARSH DULCE Ot J44.9 [...] CCDS Ot I25.10 ATHSCL HEART DISEASE OF [place] CORONARY 12/18/2016 DAVE MARSH FACC, ALI FACP [...] CCDS Ot I25.10 ATHSCL HEART DISEASE OF [place] CORONARY 12/18/2016 DAVE CHAVEZ, ALI FACP CCDS [...] E11.22 TYPE 2 DIABETES MELLITUS W DIABETIC FOOD GENERAL MANAGER 12/18/2016 MALVIN PAYAN MD Ot E66.01 MORBID (SEVERE) OBESITY DUE TO EXCESS CA 12/18/2016 MALVIN PAYAN MD Ot E83.42 HYPOMAGNESEMIA 12/18/2016 MALVIN PAYAN MD, Ot F32.9 MAJOR DEPRESSIVE DISORDER, SINGLE EPISOD 12/18/2016 MALVIN PAYAN MD, Ot F41.9 ANXIETY DISORDER, UNSPECIFIED 12/18/2016 MALVIN PAYAN MD Ot I12.9 HYPERTENSIVE CHRONIC KIDNEY DISEASE W ST 12/18/2016 MALVIN PAYAN MD Ot I25.10 ATHSCL HEART DISEASE OF [place] CORONARY 12/18/2016 MALVIN PAYAN MD Ot I65.23 OCCLUSION AND STENOSIS OF BILATERAL [place] 12/18/2016 MALVIN PAYAN MD Ot N18.9 CHRONIC KIDNEY DISEASE, UNSPECIFIED 12/18/2016 MALVIN PAYAN MD Ot Z68.41 BODY MASS INDEX (BMI) 40.0-44.9, ADULT 12/18/2016 MALVIN PAYAN MD Ot Z79.4 ANALYTICAL SCIENCES DIRECTOR (CURRENT) USE OF INSULIN 12/18/2016 MALVIN PAYAN MD, Ot Z79.899 OTHER ANALYTICAL SCIENCES DIRECTOR (CURRENT) DRUG THERAPY 12/18/2016 TREVOR TURCIOS MD, [...] UNSPECIFIED 12/18/2016 TREVOR TURCIOS MD, Ot Z79.4 INTERMEDIATE (CURRENT) USE OF INSULIN 12/18/2016 TREVOR TURCIOS MD Ot Z79.82 ANALYTICAL SCIENCES DIRECTOR (CURRENT) USE OF ASPIRIN 12/18/2016 TREVOR TURCIOS MD Ot Z79.899 OTHER ANALYTICAL SCIENCES DIRECTOR (CURRENT) DRUG THERAPY 12/18/2016 TREVOR TURCIOS MD [...] UNSPECIFIED 12/21/2016 TREVOR TURCIOS MD Ot Z79.4 INTERMEDIATE (CURRENT) USE OF INSULIN 12/21/2016 TREVOR TURCIOS MD Ot Z79.82 INTERMEDIATE (CURRENT) USE OF ASPIRIN 12/21/2016 TREVOR TURCIOS MD Ot Z79.899 OTHER ANALYTICAL SCIENCES DIRECTOR (CURRENT) DRUG THERAPY 12/21/2016 TREVOR TURCIOS MD [...] UNSPECIFIED 12/22/2016 TREVOR TURCIOS MD Ot Z79.4 INTERMEDIATE (CURRENT) USE OF INSULIN 12/22/2016 TREVOR TURCIOS MD Ot Z79.82 ANALYTICAL SCIENCES DIRECTOR (CURRENT) USE OF ASPIRIN 12/22/2016 TREVOR TURCIOS MD, Ot Z79.899 OTHER INTERMEDIATE (CURRENT) DRUG THERAPY 12/22/2016 TREVOR TURCIOS MD, Ot Z99.2 DEPENDENCE ON RENAL DIALYSIS 01/05/2017 MALVIN PAYAN MD, Ot D63.1 ANEMIA IN CHRONIC KIDNEY DISEASE 01/05/2017 MALVIN PAYAN MD, Ot E03.9 HYPOTHYROIDISM, UNSPECIFIED 01/05/2017 MALVIN PAYAN MD Ot E11.22 TYPE 2 DIABETES MELLITUS W DIABETIC FOOD GENERAL MANAGER 01/05/2017 MALVIN PAYAN MD, Ot E66.01 MORBID (SEVERE) OBESITY DUE TO EXCESS CA 01/05/2017 MALVIN PAYAN MD, Ot E83.42 HYPOMAGNESEMIA 01/05/2017 MALVIN PAYAN MD, Ot F32.9 MAJOR DEPRESSIVE DISORDER, SINGLE EPISOD 01/05/2017 MALVIN PAYAN MD, Ot F41.9 ANXIETY DISORDER, UNSPECIFIED 01/05/2017 MALVIN PAYAN MD, Ot I12.9 HYPERTENSIVE CHRONIC KIDNEY DISEASE W ST 01/05/2017 MALVIN PAYAN MD, Ot I25.10 ATHSCL HEART DISEASE OF [place] CORONARY 01/05/2017 MALVIN PAYAN MD, Ot I65.23 OCCLUSION AND STENOSIS OF BILATERAL [place] 01/05/2017 MALVIN PAYAN MD, Ot N18.9 CHRONIC KIDNEY DISEASE, UNSPECIFIED 01/05/2017 MALVIN PAYAN MD, Ot Z68.41 BODY MASS INDEX (BMI) 40.0-44.9, ADULT 01/05/2017 MALVIN PAYAN MD Ot Z79.4 ANALYTICAL SCIENCES DIRECTOR (CURRENT) USE OF INSULIN 01/05/2017 MALVIN PAYAN MD, Ot Z79.899 OTHER INTERMEDIATE (CURRENT) DRUG THERAPY 01/06/2017 MARCELA MENDEZ DO, [...] UNSPECIFIED 01/06/2017 MARCELA MENDEZ DO, Ot Z79.02 INTERMEDIATE (CURRENT) USE OF ANTITHROMBOTI 01/06/2017 MARCELA MENDEZ DO, Ot Z79.4 ANALYTICAL SCIENCES DIRECTOR (CURRENT) USE OF INSULIN 01/06/2017 MARCELA MENDEZ DO, Ot Z79.82 INTERMEDIATE (CURRENT) USE OF ASPIRIN 01/06/2017 MARCELA MENDEZ DO, Ot Z79.899 OTHER INTERMEDIATE (CURRENT) DRUG THERAPY 01/06/2017 MARCELA MENDEZ DO [...] UNSPECIFIED 01/07/2017 MARCELA MENDEZ DO, Ot Z79.02 ANALYTICAL SCIENCES DIRECTOR (CURRENT) USE OF ANTITHROMBOTI 01/07/2017 MARCELA MENDEZ DO, Ot Z79.4 INTERMEDIATE (CURRENT) USE OF INSULIN 01/07/2017 MARCELA MENDEZ DO, Ot Z79.82 ANALYTICAL SCIENCES DIRECTOR (CURRENT) USE OF ASPIRIN 01/07/2017 MARCELA MENDEZ DO, Ot Z79.899 OTHER ANALYTICAL SCIENCES DIRECTOR (CURRENT) DRUG THERAPY 01/07/2017 MARCELA MENDEZ DO, [...] UNSPECIFIED 01/08/2017 MARCELA MENDEZ DO Ot Z79.02 INTERMEDIATE (CURRENT) USE OF ANTITHROMBOTI 01/08/2017 MARCELA MENDEZ DO Ot Z79.4 INTERMEDIATE (CURRENT) USE OF INSULIN 01/08/2017 MARCELA MENDEZ DO Ot Z79.82 INTERMEDIATE (CURRENT) USE OF ASPIRIN 01/08/2017 MARCELA MENDEZ DO Ot Z79.899 OTHER INTERMEDIATE (CURRENT) DRUG THERAPY 01/08/2017 MARCELA MENDEZ DO [...] DISEASE 01/18/2017 URBAN JOHNSON APRN Ot Z79.02 INTERMEDIATE (CURRENT) USE OF ANTITHROMBOTI 01/18/2017 URBAN JOHNSON APRN Ot Z79.4 INTERMEDIATE (CURRENT) USE OF INSULIN 01/18/2017 URBAN JOHNSON APRN Ot Z79.82 INTERMEDIATE (CURRENT) USE OF ASPIRIN 01/18/2017 URBAN JOHNSON APRN Ot Z79.899 OTHER ANALYTICAL SCIENCES DIRECTOR (CURRENT) DRUG THERAPY 01/18/2017 URBAN JOHNSON APRN [...] K56.41 FECAL IMPACTION 01/19/2017 JOHNSON, PETER J OPERATING THEATRE TECHNICIAN Ot K59.00 CONSTIPATION, UNSPECIFIED 01/19/2017 URBAN JOHNSON OPERATING THEATRE TECHNICIAN Ot M79.7 FIBROMYALGIA 01/19/2017 URBAN JOHNSON APRN Ot N18.6 END STAGE RENAL DISEASE 01/19/2017 URBAN JOHNSON APRN Ot Z79.02 ANALYTICAL SCIENCES DIRECTOR (CURRENT) USE OF ANTITHROMBOTI 01/19/2017 URBAN JOHNSON APRN Ot Z79.4 ANALYTICAL SCIENCES DIRECTOR (CURRENT) USE OF INSULIN 01/19/2017 URBAN JOHNSON APRN Ot Z79.82 INTERMEDIATE (CURRENT) USE OF ASPIRIN 01/19/2017 URBAN JOHNSON APRN Ot Z79.899 OTHER ANALYTICAL SCIENCES DIRECTOR (CURRENT) DRUG THERAPY 01/19/2017 URBAN JOHNSON APRN [...] DISEASE 01/19/2017 URBAN JOHNSON APRN Ot Z79.02 ANALYTICAL SCIENCES DIRECTOR (CURRENT) USE OF ANTITHROMBOTI 01/19/2017 URBAN JOHNSON APRN Ot Z79.4 ANALYTICAL SCIENCES DIRECTOR (CURRENT) USE OF INSULIN 01/19/2017 URBAN JOHNSON APRN Ot Z79.82 INTERMEDIATE (CURRENT) USE OF ASPIRIN 01/19/2017 URBAN JOHNSON APRN Ot Z79.899 OTHER ANALYTICAL SCIENCES DIRECTOR (CURRENT) DRUG THERAPY 01/19/2017 URBAN JOHNSON APRN [...] DISEASE 01/24/2017 URBAN JOHNSON APRN Ot Z79.02 ANALYTICAL SCIENCES DIRECTOR (CURRENT) USE OF ANTITHROMBOTI 01/24/2017 URBAN JOHNSON APRN Ot Z79.4 ANALYTICAL SCIENCES DIRECTOR (CURRENT) USE OF INSULIN 01/24/2017 URBAN JOHNSON APRN Ot Z79.82 INTERMEDIATE (CURRENT) USE OF ASPIRIN 01/24/2017 URBAN JOHNSON APRN Ot Z79.899 OTHER INTERMEDIATE (CURRENT) DRUG THERAPY 01/24/2017 URBAN JOHNSON APRN Ot Z95.5 PRESENCE OF CORONARY ANGIOPLASTY IMPLANT 01/24/2017 URBAN JOHNSON APRN Ot Z99.2 DEPENDENCE ON RENAL DIALYSIS 01/29/2017 TREVOR TURCIOS MD Ot E11.9 TYPE 2 DIABETES MELLITUS WITHOUT COMPLIC 01/29/2017 TREVOR TURCIOS MD Ot I12.0 HYP CHR KIDNEY DISEASE W STAGE 5 CHR KID 01/29/2017 TREVOR TURCIOS MD Ot I25.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 [place] COR ART W 01/29/2017 TREVOR TURCIOS MD Ot I51.7 CARDIOMEGALY 01/29/2017 TREVOR TURCIOS MD Ot J44.9 CHRONIC OBSTRUCTIVE PULMONARY DISEASE, U 01/29/2017 TREVOR TURCIOS MD Ot N18.6 END STAGE RENAL DISEASE 01/29/2017 TREVOR TURCIOS MD Ot R07.9 CHEST PAIN, UNSPECIFIED 01/29/2017 TREVOR TURCIOS MD Ot Z79.02 INTERMEDIATE (CURRENT) USE OF ANTITHROMBOTI 01/29/2017 TREVOR TURCIOS MD Ot Z79.4 ANALYTICAL SCIENCES DIRECTOR (CURRENT) USE OF INSULIN 01/29/2017 TREVOR TURCIOS MD Ot Z79.82 INTERMEDIATE (CURRENT) USE OF ASPIRIN 01/29/2017 TREVOR TURCIOS MD, Ot Z79.899 OTHER ANALYTICAL SCIENCES DIRECTOR (CURRENT) DRUG THERAPY 01/29/2017 TREVOR TURCIOS MD [...] DISEASE 02/15/2017 URBAN JOHNSON APRN Ot Z79.02 ANALYTICAL SCIENCES DIRECTOR (CURRENT) USE OF ANTITHROMBOTI 02/15/2017 URBAN JOHNSON APRN Ot Z79.4 ANALYTICAL SCIENCES DIRECTOR (CURRENT) USE OF INSULIN 02/15/2017 URBAN JOHNSON APRN Ot Z79.82 ANALYTICAL SCIENCES DIRECTOR (CURRENT) USE OF ASPIRIN 02/15/2017 URBAN JOHNSON APRN Ot Z79.899 OTHER ANALYTICAL SCIENCES DIRECTOR (CURRENT) DRUG THERAPY 02/15/2017 URBAN JOHNSON APRN Ot Z95.5 PRESENCE OF CORONARY ANGIOPLASTY IMPLANT 02/15/2017 URBAN JOHNSON APRN Ot Z99.2 DEPENDENCE ON RENAL DIALYSIS 02/19/2017 Ot 414.00 CORON ATHEROSCLER NOS TYPE VESSEL, NATIV 02/19/2017 ISABEL HUMPHREYS MD Ot 300.00 ANXIETY STATE NOS 02/19/2017 ISABEL HUMPHREYS MD Ot 311 DEPRESSIVE DISORDER NEC 02/19/2017 MARIBELL MARAVILLA GRIT REMOVAL OPERATOR Ot 790.6 ABN BLOOD CHEMISTRY NEC 02/19/2017 SEGLIE MD, ISABEL R Ot 285.9 ANEMIA NOS 02/19/2017 JULIANN MARSH, ISABEL R Ot 460 ACUTE NASOPHARYNGITIS 02/19/2017 MARIBELL MARAVILLA GRIT REMOVAL OPERATOR Ot 272.4 HYPERLIPIDEMIA NEC/NOS 02/19/2017 MARIBELL MARAVILLA GRIT REMOVAL OPERATOR Ot 401.9 HYPERTENSION NOS 02/19/2017 MARIBELL MARAVILLA GRIT REMOVAL OPERATOR Ot 414.00 CORON ATHEROSCLER NOS TYPE VESSEL, [...] NEOPLASM OF [place] 02/19/2017 Ot 250.01 DIAB AMBRA WO COMPL, TYPE I [JUVENILE TYP 02/19/2017 DAVE CHAVEZC, ALI FACP CCDS Ot D63.1 ANEMIA IN CHRONIC KIDNEY DISEASE 02/19/2017 ADVE MARSH FACC, ALI FACP CCDS Ot E11.9 TYPE 2 DIABETES MELLITUS WITHOUT COMPLIC 02/19/2017 DAVE MARSH FACC, ALI FACP CCDS Ot E66.8 OTHER OBESITY 02/19/2017 DAVE MARSH FACC, ALI FACP CCDS Ot I10 ESSENTIAL (PRIMARY) HYPERTENSION 02/19/2017 DAVE MARSH FACC, ALI FACP CCDS Ot I25.10 ATHSCL HEART DISEASE OF [place] CORONARY 02/19/2017 DAVE MARSH FACC, ALI FACP CCDS Ot J43.8 OTHER EMPHYSEMA 02/19/2017 DULCE WILL MD Ot E11.9 TYPE 2 DIABETES MELLITUS WITHOUT COMPLIC 02/19/2017 DULCE WILL MD Ot E66.9 OBESITY, UNSPECIFIED 02/19/2017 DULCE WILL MD Ot I12.9 HYPERTENSIVE CHRONIC KIDNEY DISEASE W ST 02/19/2017 ANA WILL MDIL Ot I25.10 ATHSCL HEART DISEASE OF [place] CORONARY 02/19/2017 DULCE WILL MD Ot J44.9 [...] CCDS Ot I25.10 ATHSCL HEART DISEASE OF [place] CORONARY 02/19/2017 DAVE MARSH FACC, ALI FACP [...] CCDS Ot I25.10 ATHSCL HEART DISEASE OF [place] CORONARY 02/19/2017 DAVE MARSH FACC, ALI FACP [...] HYPERPARATHYROIDISM OF RENAL O 02/19/2017 NICOLETTE MARSH, DULEC Ot N18.3 CHRONIC KIDNEY DISEASE, STAGE 3 [...] E11.22 TYPE 2 DIABETES MELLITUS W DIABETIC FOOD GENERAL MANAGER 03/22/2017 VERNON COLLIER MD Ot F41.0 PANIC DISORDER WITHOUT AGORAPHOBIA 03/22/2017 VERNON COLLIER MD Ot I12.0 HYP CHR KIDNEY DISEASE W STAGE 5 CHR KID 03/22/2017 VERNON COLLIER MD Ot I25.10 ATHSCL HEART DISEASE OF [place] CORONARY 03/22/2017 VERNON COLLIER MD Ot J44.9 [...] NAUSEA 03/22/2017 VERNON COLLIER MD, Ot Z79.4 ANALYTICAL SCIENCES DIRECTOR (CURRENT) USE OF INSULIN 03/22/2017 VERNON COLLIER MD, Ot Z79.82 INTERMEDIATE (CURRENT) USE OF ASPIRIN 03/22/2017 VERNON COLLIER [...] E11.22 TYPE 2 DIABETES MELLITUS W DIABETIC FOOD GENERAL MANAGER 04/07/2017 MARIBEL MARTIN MD, Ot E66.01 MORBID (SEVERE) OBESITY DUE TO EXCESS CA 04/07/2017 MARIBEL MARTIN MD, Ot E83.42 HYPOMAGNESEMIA 04/07/2017 MARIBEL MARTIN MD, Ot F32.9 MAJOR DEPRESSIVE DISORDER, SINGLE EPISOD 04/07/2017 MARIBEL MARTIN MD, Ot F41.9 ANXIETY DISORDER, UNSPECIFIED 04/07/2017 MARIBEL MARTIN MD, Ot I12.9 HYPERTENSIVE CHRONIC KIDNEY DISEASE W ST 04/07/2017 MARIBEL MARTIN MD, Ot I25.10 ATHSCL HEART DISEASE OF [place] CORONARY 04/07/2017 MARIBEL MARTIN MD, Ot I65.23 OCCLUSION AND STENOSIS OF BILATERAL [place] 04/07/2017 MARIBEL MARTIN MD, Ot N18.9 CHRONIC KIDNEY DISEASE, UNSPECIFIED 04/07/2017 MARIBEL MARTIN MD, Ot Z68.41 BODY MASS INDEX (BMI) 40.0-44.9, ADULT 04/07/2017 MARIBEL MARTIN MD, Ot Z79.4 INTERMEDIATE (CURRENT) USE OF INSULIN 04/07/2017 MARIBEL MARTIN MD, Ot Z79.899 OTHER ANALYTICAL SCIENCES DIRECTOR (CURRENT) DRUG THERAPY Procedures Code Description Performed By Performed On 47.01 LAPAROSCOP APPENDECTOMY 08/02/2009 71.09 INCIS VULVA/PERINEUM NEC 07/23/2011 98.28 REMOVAL FB FROM FOOT 08/19/2013 86.04 OTHER SKIN SUBQ I D 08/22/2013 45.16 ESOPHAGOGASTRODUODENOSCOPY [EGD] W/CLOSE 02/07/2014 45.23 COLONOSCOPY 02/07 55142 PSYCH DIAGNOSTIC EVALUATION 03/15/2014 57523 PSYTX PT&/FAMILY 45 MINUTES 04/26/2014 89638 PSYTX PT&/FAMILY 60 MINUTES 05/11/2014 56829 PSYTX PT&/FAMILY 45 MINUTES 05/15/2014 40939 PSYTX PT&/FAMILY 45 MINUTES 05/15/2014 74556 PSYTX PT&/FAMILY 45 MINUTES 06/12/2014 72291 PSYTX PT&/FAMILY 45 MINUTES 06/12/2014 84034 PSYTX PT&/FAMILY 45 MINUTES 06/26/2014 98954 PSYTX PT&/FAMILY 45 MINUTES 07/10/2014 59553 PSYTX PT&/FAMILY 45 MINUTES 08/07/2014 03355 PSYTX PT&/FAMILY 45 MINUTES 09/18/2014 00.41 PROCEDURE ON TWO VESSELS 11/01/2014 00.46 INSERTION OF TWO VASCULAR STENTS 11/01/2014 00.66 PERCUTANEOUS TRANSLUMINAL CORONARY ANGIO 11/01/2014 36.06 CORONARY ARTERY STENT INSERTION NON-DRUG 11/01/2014 36.07 INSRT OF DRUG-ELUTING CORON ARTERY STENT 11/01/2014 37.22 LEFT HEART CARDIAC CATH 11/01/2014 88.56 CORONAR ARTERIOGR-2 CATH 11/01/2014 93957 PSYTX PT&/FAMILY 45 MINUTES 11/28/2014 27768 PSYTX PT&/FAMILY 45 MINUTES 01/01/2015 [id number] DILATION OF CORONARY ARTERY, ONE SITE, P 01/14/2016 [id number] MEASURE OF CARDIAC SAMPL PRESSURE, L H 01/14/2016 [id number] FLUOROSCOPY OF MULT COR ART USING L OSM 01/14/2016 Encounters ACCT No. Visit Date/Time Discharge Status Pt. Type Provider Facility Loc./Unit Complaint [id number] 01/01/2015 10:41:00 01/01/2015 23: 59:59 CLS Outpatient SOPHIA LSCS, KAREN Zaidi [id number] 11/28/2014 10:59:00 11/28/2014 23: 59:59 CLS Outpatient SOPHIA LSCS, KAREN Zaidi [id number] 09/18/2014 10:06:00 09/18/2014 23: 59:59 CLS Outpatient SOPHIA LSCS KAREN Zaidi [id number] 08/07/2014 10:01:00 08/07/2014 23: 59:59 CLS Outpatient SOPHIA LSCS, KAREN Zaidi [id number] 07/10/2014 10:13:00 07/10/2014 23: 59:59 CLS Outpatient SOPHIA LSCS, KAREN Zaidi [id number] 06/26/2014 10:19:00 06/26/2014 23: 59:59 CLS Outpatient SOPHIA LSCS, KAREN Zaidi [id number] 06/12/2014 10:01:00 06/12/2014 23: 59:59 CLS Outpatient SOPHIA LSCS, KAREN Zaidi [id number] 05/15/2014 13:01:00 05/15/2014 23: 59:59 CLS Outpatient SOPHIA LSCS, KAREN Zaidi [id number] 05/10/2014 16:00:00 05/10/2014 23: 59:59 CLS Outpatient KELL BLACKWELLPCJURGEN [id number] 04/26/2014 13:46:00 04/26/2014 23: 59:59 CLS Outpatient SOPHIA LSCS, KAREN Zaidi [id number] 03/14/2014 12:05:00 03/14/2014 23: 59:59 CLS Outpatient JURGEN CASTORENA [facility] [id number] 04/01/2017 09:24:00 2016 11:33:00 DIS Emergency AMIRA MARSH, VERNON [facility] ER CHEST PAIN [id number] 03/19/2017 03:22:00 2016 05:52:00 DIS Outpatient VERNON COLLIER MD [facility] ER CHEST PAIN [id number] 01/29/2017 10:10:00 2016 13:01:00 DIS Emergency TREVOR TURCIOS MD [facility] ER CHEST PAIN [id number] 01/18/2017 08:44:00 2016 11:17:00 DIS Emergency URBAN JOHNSON APRN [facility] ER ABD PAIN [id number] 01/06/2017 00:09:00 2016 [facility]59:[facility] MARIBEL [facility] ONC [id number] 01/06/2017 00:44:00 2016 03:31:00 DIS Emergency MARCELA MENDEZ DO [facility] ER CP,SYNCOPAL [id number] 12/10/2016 12:15:00 2016 00:01:00 DIS Outpatient MALVIN PAYAN MD [facility] ONC [id number] 12/18/2016 08:21:00 2016 12:09:00 DIS Emergency TREVOR TURCIOS MD [facility] ER CHEST PAIN [id number] 10/10/2016 19:42:00 2016 23:30:00 DIS Emergency GUMARO HEBERT MD [facility] ER CHEST PAIN [id number] 06/30/2016 11:21:00 2016 00:01:00 DIS Outpatient MALVIN PAYAN MD [facility] ONC [id number] 09/23/2016 20:23:00 2016 23:15:00 DIS Emergency ANNE MARIE ROSEN DO [facility] ER CHEST PAIN [id number] 08/24/2016 15:36:00 2015 19:57:00 DIS Emergency VERNON COLLIER MD [facility] ER ABD PAIN [id number] 08/13/2016 21:22:00 2015 00:39:00 DIS Emergency AMIRA MARSH, VERNON Cardona [facility] ER CHEST PAIN [id number] 07/23/2016 08:36:00 2015 23:59:59 CLS Outpatient ANTONIO MTZ MD [facility] LAB CATARACT [id number] 05/05/2016 09:44:00 2015 15:02:00 DIS Outpatient MALVIN PAYAN MD [facility] ONC [id number] 05/20/2016 17:20:00 2015 20:24:00 DIS Emergency JESSIKA DO ANNE MARIE K [facility] ER CP [id number] 03/03/2016 09:48:00 2015 00:01:00 DIS Outpatient MALVIN PAYAN MD [facility] ONC [id number] 02/29/2016 19:10:00 2015 21:59:00 DIS Emergency EMILEE MARSH, GUMARO Allen [facility] ER CHEST PAIN [id number] 02/24/2016 14:17:00 2015 23:59:59 CLS Outpatient REJI MA MD [facility] HH CKD, DIALYSIS, SCREENING [id number] 01/15/2016 09:36:00 2015 11:05:00 DIS Inpatient JULIANN MARSH, ISABEL Zaidi [facility] CSD CHEST PAIN [id number] 01/09/2016 10:33:00 2015 23:59:59 CLS Outpatient DULCE WILL MD [facility] LAB [id number] 12/11/2015 10:17:00 2015 23:59:59 CLS Outpatient DULCE WILL MD [facility] LAB [id number] 11/27/2015 10:43:00 2015 00:01:00 DIS Outpatient MALVIN PAYAN MD [facility] ONC [id number] 11/18/2015 15:38:00 2015 23:59:59 CLS Outpatient KARI EDEN APRN [facility] RT DYSPNEA [id number] 11/04/2015 09:13:00 2015 23:59:59 CLS Outpatient ISABEL HUMPHREYS MD [facility] LAB HYPERTENSION, DIABETES [id number] 10/23/2015 08:55:00 2015 23:59:59 CLS Outpatient DAVE MARSH FACC, ALI FACP CCDS [facility] RAD LEFT LEG CLAUDICATION [id number] 10/22/2015 08:11:00 2015 23:59:59 CLS Outpatient DAVE MARSH FACDavid, ALI FACP CCDS [facility] CARD PALPTIATIONS,CAD,CKD,COPD [id number] 08/20/2015 14:02:00 2014 00:01:00 DIS Outpatient MALVIN PAYAN MD [facility] ONC [id number] 07/04/2015 12:44:00 2014 23:59:59 CLS Outpatient DAVE MARSH FACC, ALI FACP CCDS [facility] LAB HTN,OBESITY,DM II,COPD,CKD, CAD [id number] 07/04/2015 12:32:00 2014 23:59:59 CLS Outpatient DULCE WILL MD [facility] LAB HTN,DM II,COPD,CKD,CAD,OBESITY [id number] 06/13/2015 17:40:00 2014 16:05:00 DIS Inpatient ISABEL HUMPHREYS MD [facility] ICU CHEST PAIN,HTN [id number] 05/30/2015 11:32:00 2014 00:01:00 DIS Outpatient MALVIN PAYAN MD [facility] ONC [id number] 05/27/2015 13:07:00 2014 15:55:00 DIS Emergency VERNON COLLIER MD [facility] ER LOW BLOOD SUGAR [id number] 05/16/2015 09:58:00 2014 00:01:00 DIS Outpatient MALVIN PAYAN MD [facility] ONC [id number] 04/26/2015 09:46:00 2014 10:44:00 DIS Inpatient ISABEL HUMPHREYS MD [facility] 4TH HYPERKALEMIA,DEPRESSION,FATIGUE,ANEMIA [id number] 04/19/2015 10:53:00 2014 15:55:00 DIS Emergency GUMARO HEBERT MD [facility] ER SOA [id number] 03/21/2015 10:35:00 2014 23:59:59 CLS Outpatient DULCE WILL MD [facility] LAB [id number] 03/11/2015 14:46:00 2014 15:10:00 DIS Outpatient KARI EDEN APRN [facility] SLEEP Observed Apnea, Snoring, HTN, EDS, Heart Disease [id number] 02/07/2015 10:55:00 2014 00:01:00 DIS Outpatient MALVIN PAYAN MD [facility] ONC [id number] 11/22/2014 23:15:00 2014 16:37:00 DIS Inpatient ISABEL HUMPHREYS MD [facility] CSD CHEST PAIN, HYPERTENSIVE URGENCY, R FACE TINGLING [id number] 09/20/2014 20:00:00 2014 23:59:59 CLS Preadmit JASMIN GUILLEN APRN [facility] SLEEP [id number] 04/17/2014 14:36:00 2013 00:01:00 DIS Outpatient ANTONIO MTZ MD [facility] LAB DIABETES [id number] 06/22/2014 10:35:00 2013 23:59:59 CLS Outpatient ISABEL HUMPHREYS MD [facility] RAD ROUTINE [id number] 02/26/2014 13:05:00 2013 00:01:00 DIS Outpatient MALVIN PAYAN MD [facility] ONC [id number] 05/17/2014 18:14:00 2013 22:20:00 DIS Emergency CASSIDY ACOSTA [facility] ER ABDOMINAL PAIN RIGHT SIDE [id number] 03/14/2014 08:31:00 2013 23:59:59 CLS Outpatient ISABEL HUMPHREYS MD [facility] RAD CHANGE IN [id number] 02/20/2014 09:24:00 2013 12:40:00 DIS Inpatient ISABEL HUMPHREYS MD [facility] 4TH ANEMIA,EDEMA, DEPRESSION [id number] 02/01/2014 00:17:00 2013 12:25:00 DIS Inpatient ISABEL HUMPHREYS MD [facility] SURGICAL CHEST PAIN,HYPERTENSIVE URGENCY, ANXIETY,HYPERKALEM [id number] 11/30/2013 13:56:00 2013 23:59:59 CLS Outpatient MARIBELL MARAVILLA [facility] CARD CAD,HTN,HLD [id number] 10/02/2013 15:06:00 2013 23:59:59 CLS Outpatient ISABEL HUMPHREYS MD [facility] LAB ANEMIA,COLD [id number] 08/19/2013 10:04:00 2013 16:10:00 DIS Inpatient ISABEL HUMPHREYS MD [facility] 4TH CELLULITIS/MRSA [id number] 04/19/2013 16:55:00 2012 12:45:00 DIS Inpatient ISABEL HUMPHREYS MD [facility] 4TH UNCONTROLLED DIABETES,DIZZINESS [id number] 04/17/2013 14:03:00 2012 19:00:00 DIS Emergency JESSIKA DO, ANNE MARIE K [facility] ER MULTIPLE COMPLAINTS [id number] 04/06/2013 13:13:00 2012 23:59:59 CLS Outpatient MARIBELL MARAVILLA [facility] LAB ELEVATED CR [id number] 03/20/2013 15:06:00 2012 23:59:59 CLS Outpatient ISABEL HUMPHREYS MD [facility] LAB ANXIETY,DEPRESSION [id number] 02/27/2013 15:15:00 2012 08:04:00 DIS Inpatient ISABEL HUMPHREYS MD [facility] 4TH STAPH R EYE EAR [id number] 02/21/2013 09:59:00 2012 13:37:00 DIS Emergency CASSIDY ACOSTA [facility] ER FALL/EYE REDNESS EAR/HEAD PAIN [id number] 03/11/2015 14:49:00 Document Registration [id number] 03/11/2015 14:48:00 Document Registration [id number] 03/11/2015 14:48:00 Document Registration [id number] 03/11/2015 14:47:00 Document Registration [id number] 03/11/2015 14:47:00 Document Registration [id number] 03/11/2015 14:47:00 Document Registration [id number] 10/31/2014 22:49:00 Document Registration [id number] 07/16/2014 00:00:00 Document Registration [id number] 08/19/2012 00:02:00 Document Registration [id number] 03/17/2012 12:32:00 Document Registration [id number] 02/22/2012 07:51:00 Document Registration [id number] 01/06/2012 12:15:00 Document Registration [id number] 07/23/2011 14:38:00 Document Registration [id number] 05/19/2011 10:32:00 Document Registration [id number] 01/24/2011 08:29:00 Document Registration [id number] 07/18/2010 18:45:00 Document Registration [id number] 12/19/2009 08:50:00 Document Registration [id number] 11/06/2009 12:08:00 Document Registration [id number] 11/05/2009 08:36:00 Document Registration [id number] 08/11/2016 08:22:00 2015 14:53:00 DIS Outpatient Tamiko MARSH, [facility] RENATA
--- NOTE | 2017-04-30 01:53 | ED Chest Pain ---
General Chief Complaint: Cardiac/General Problems Stated Complaint: HIGH BLOOD PRESSURE,CHEST PAIN Nursing Triage Note: PT WAS BROUGHT TO ROOM BY WHEELCHAIR. PT WAS SEEN EARLIER TODAY IN THE ER FOR THE SAME ISSUES. PT COMPLAINS OF HIGH BLOOD PRESSURE AFTER TAKING HER NIGHT TIME MEDICATIONS. PT ALSO COMPLAINS OF CHEST PAIN. PT STATES SHE TOOK A NITRO AT APPROX. 2330. Nursing Sepsis Screen: No Definite Risk Source: patient, other (significant other) Exam Limitations: no limitations History of Present Illness Time seen by provider: 01:43 Initial Comments Patient presents to ER by private conveyance with a chief complaint of substernal chest pain/pressure which is sharp and constant. She says it feels gripping. This pain started earlier today. She came in to the ER and was worked up given the normal EKG and troponin allowed to go home. She is given him 325 mg aspirin on route to EMS at the time. She says she went home and continued to feel very poorly and was having lots of chest pain and pressure and was concerned she return to the ER tonight. She says she has a history of 12 stents in her heart from her production support specialist, Dr Rogers in [place], [place]. She was seen tonight by her home health nurse who examined her and also examined her painful right leg and that she had hit on her chair proximally for 5 days ago and said that it need to be evaluated by . She has not had a chance to have her PCP C this leg get. She has had no fevers or chills however she is feeling some significant nausea and pain in her throat and neck and chin. She is at baseline shortness of breath and wears 3 L per nasal cannula at home. She has no cough. Allergies and Home Medications Allergies Coded Allergies: propoxyphene (Verified Allergy, Mild, DIZZINESS, 02/20/14) codeine (Verified Allergy, Unknown, CAN TAKE OXYCODONE, 02/20/14) esomeprazole (Verified Allergy, Unknown, 02/20/14) ketorolac (Verified Allergy, Unknown, PT TAKES ASPIRIN AT HOME, 02/20/14) levofloxacin (Verified Allergy, Unknown, 02/20/14) promethazine (Verified Allergy, Unknown, 02/20/14) Uncoded Allergies: TAPE (Adverse Reaction, Mild, RASH, 11/23/14) Home Medications Albuterol Sulfate 8.5 Gm Hfa.aer.ad, 2 PUFF INH Q4H PRN for SHORTNESS OF BREATH, (Reported) Aspirin 81 Mg Tablet.dr, 81 MG PO DAILY, (Reported) Budesonide/Formoterol Fumarate 10.2 Gm Hfa.aer.ad, 2 PUFF INH BID, (Reported) Cephalexin 500 Mg Capsule, 500 MG PO BID, #14 Prescribed by: VERNON FLORES on 08/24/16 1847 Clopidogrel Bisulfate 75 Mg Tablet, 75 MG PO HS, (Reported) Cyanocobalamin 50 Mcg Lozenge, 50 MCG PO DAILY, (Reported) Doxazosin Mesylate 4 Mg Tablet, 4 MG PO DAILY, (Reported) Ezetimibe 10 Mg Tablet, 10 MG PO HS, (Reported) Furosemide 40 Mg Tablet, 40 MG PO DAILY, (Reported) Gabapentin 300 Mg Capsule, 300 MG PO TID, (Reported) Gentamicin Sulfate 5 Ml Drops, 1 DROP OU Q6H PRN for ALLERGIES, (Reported) Ibuprofen 800 Mg Tablet, 800 MG PO BID PRN for PAIN, (Reported) Insulin Aspart 100 Unit/1 Ml Susp, SQ UD, (Reported) 201-250 = 2 UNITS 251-300 = 4 UNITS 301-350 = 6 UNITS 351-400 = 8 UNITS IF > THAN 400, CALL PHYSICIAN Insuln Asp Prt/Insulin Aspart 300 Units/3 Ml Solution, 10 UNITS SQ HS, (Reported ) Insuln Asp Prt/Insulin Aspart 300 Units/3 Ml Solution, 30 UNITS SC DAILY, ( Reported) Isosorbide Mononitrate 30 Mg Tab.er.24h, 15 MG PO HS, (Reported) TAKES 1/2 (30MG) TABLET Levothyroxine Sodium 50 Mcg Tablet, 50 MCG PO DAILY, (Reported) Lorazepam 0.5 Mg Tablet, 0.5 MG PO TID PRN for ANXIETY, (Reported) Metoprolol Succinate 200 Mg Tab.er.24h, 200 MG PO DAILY, (Reported) Montelukast Sodium 10 Mg Tablet, 10 MG PO HS, (Reported) Nitroglycerin 0.4 Mg Tab.subl, 0.4 MG SL UD PRN for CHEST PAIN, (Reported) PLACE 1 TABLET UNDER TONGUE EVERY 5 MINUTES X 3 DOSES NEEDED FOR CHEST PAIN Nystatin 15 Gm Powder, TOP BID PRN for RASH, (Reported) Omeprazole 40 Mg Capsule.dr, 40 MG PO DAILY, (Reported) Ondansetron HCl 4 Mg Tablet, 4 MG SL TID PRN for NAUSEA, (Reported) Oxycodone HCl/Acetaminophen 1 Each Tablet, 1 TAB PO Q6H PRN for PAIN, (Reported) Review of Systems Constitutional: No chills, No diaphoresis, No fever EENTM: No Eye Pain, No Ear Pain Respiratory: Denies Cough, Denies Orthopnea, Denies Shortness of Air, SOA With Exertion Cardiovascular: See HPI, Chest Pain, Edema Gastrointestinal: Denies Constipated, Denies Diarrhea, Denies Nausea Genitourinary: Denies Burning, Denies Drainage Musculoskeletal: No back pain, No joint pain Skin: No pruritus, No rash Psychiatric/Neurological: Denies Headache, Denies Numbness, Denies Paresthesia Past Jvfgvnu-Powyvw-Hkbvfn Hx Patient Social History Alcohol Use: Denies Use Recreational Drug Use: No Smoking Status: Never a Smoker 2nd Hand Smoke Exposure: No Recent Foreign Travel: No Contact w/Someone Who Travel: No Recent Infectious Disease Expo: No Recent Hopitalizations: Yes Physical Abuse: No Sexual Abuse: No Immunizations Up To Date Tetanus Booster (TDap): Unknown PED Vaccines UTD: Yes Date of Pneumonia Vaccine: Feb 04, 2011 Date of Influenza Vaccine: Jun 08, 2017 Seasonal Allergies Seasonal Allergies: Yes Surgeries History of Surgeries: Yes (gallbladder, hiatal hernia, back and eye surgery) Surgeries: Abdominal, Appendectomy, Arteriovenous Shunt, Cardiac, Coronary Stent, Dialysis, Eye Surgery, Gallbladder, Hysterectomy, Oophorectomy, Orthopedic, Vascular Surgery Respiratory History of Respiratory Disorde: Yes Respiratory Disorders: Asthma, COPD Currently Using CPAP: No Currently Using BIPAP: No Cardiovascular History of Cardiac Disorders: Yes Cardiac Disorders: Coronary Artery Disease, Hypertension Neurological History of Neurological Disord: Yes Neurological Disorders: Stroke Reproductive System Hx Reproductive Disorders: Yes Sexually Transmitted Disease: No HIV/AIDS: No TECHNOLOGIST INFECTIOUS DISEASE History: Hysterectomy Genitourinary History of Genitourinary Disor: No Genitourinary Disorders: Renal Failure, Dialysis Gastrointestinal History of Gastrointestinal Di: Yes (SPASTIC COLON) Gastrointestinal Disorders: Gastroesophageal Reflux, Diverticulosis, Pancreatitis Musculoskeletal History of Musculoskeletal Dis: Yes (SCIATICA CHRONIC, RIGHT ARM FX 2015- CHRONIC RIGHT ARM PAIN ) Musculoskeletal Disorders: Arthritis, Fibromyalgia, Chronic Back Pain, Fractures Endocrine History of Endocrine Disorders: Yes Endocrine Disorders: Diabetes, Insulin dep, Hypothyroidsim HEENT History of HEENT Disorders: Yes HEENT Disorders: Cataract Cancer History of Cancer: No Psychosocial History of Psychiatric Problem: Yes (PANIC ATTACKS) Behavioral Health Disorders: Anxiety Suicide Risk Score: 0 Integumentary History of Skin or Integumenta: Yes (HX MRSA ) Blood Transfusions History of Blood Disorders: Yes (being treated by dr. rogel for low blood counts /ANEMIA) Adverse Reaction to a Blood Tr: No (does not want to receieve blood products) Family Medical History Family Medial History: Cancer 03 MOTHER (OVARIAN CANCER) Congestive heart failure 09 BROTHER ( OF CHF) DVT 09 SISTER FH: COPD (chronic obstructive pulmonary disease) 09 SISTER FH: bipolar disorder 09 BROTHER FH: emphysema 03 FATHER FHx: multiple sclerosis 09 BROTHER Family history: Cardiovascular disease 03 FATHER, Onset:Unknown Family history: Diabetes mellitus 03 MOTHER 09 BROTHER Family history: Hypertension 09 SISTER (ACTUALLY HAS LOW BLOOD PRESSURE NOT HIGH) Physical Exam Vital Signs Vital Sign - Last 12Hours 04/30/17 00:58 Temp 98.1 Pulse 72 Resp 20 B/P (MAP) 187/96 Pulse Ox 98 O2 Delivery Nasal Cannula O2 Flow Rate 3.00 Capillary Refill : Less Than 3 Seconds General Appearance: WD/WN, Anxious, Chronically ill, Mild Distress HEENT: PERRL/EOMI, Pharynx Normal Neck: Full Range of Motion, Non Tender, Supple Respiratory: Chest Non Tender, Lungs Clear, Normal Breath Sounds Cardiovascular: Regular Rate, Rhythm, Normal Peripheral Pulses, Other (edema) Gastrointestinal: Normal Bowel Sounds, Non Tender, Soft Extremity: Normal Capillary Refill, Pedal Edema, Swelling, Other (erythema and warmth over the anterior right rodriguez) Neurologic/Psychiatric: Alert, Oriented x3 Skin: Erythema (warmth over her anterior right rodriguez consistent with sialitis) Progress/Results/Core Measures Results/Orders Lab Results Laboratory Tests Test 04/30/17 02:22 Range/Units White Blood Count 3.6 L 4.3-11.0 10^3/uL Red Blood Count 3.92 L 4.35-5.85 10^6/uL Hemoglobin 12.2 11.5-16.0 G/DL Hematocrit 37 35-52 % Mean Corpuscular Volume 94 80-99 FL Mean Corpuscular Hemoglobin 31 25-34 PG Mean Corpuscular Hemoglobin Concent 33 32-36 G/DL Red Cell Distribution Width 13.3 10.0-14.5 % Platelet Count 93 L 130-400 10^3/uL Mean Platelet Volume 9.7 7.4-10.4 FL Neutrophils (%) (Auto) 72 42-75 % Lymphocytes (%) (Auto) 17 12-44 % Monocytes (%) (Auto) 8 0-12 % Eosinophils (%) (Auto) 3 0-10 % Basophils (%) (Auto) 1 0-10 % Neutrophils # (Auto) 2.6 1.8-7.8 X 10^3 Lymphocytes # (Auto) 0.6 L 1.0-4.0 X 10^3 Monocytes # (Auto) 0.3 0.0-1.0 X 10^3 Eosinophils # (Auto) 0.1 0.0-0.3 10^3/uL Basophils # (Auto) 0.0 0.0-0.1 10^3/uL Prothrombin Time 13.4 12.2-14.7 SEC INR Comment 1.0 0.8-1.4 Activated Partial Thromboplast Time 31 24-35 SEC Sodium Level 137 135-145 MMOL/L Potassium Level 4.3 3.6-5.0 MMOL/L Chloride Level 100 98-107 MMOL/L Carbon Dioxide Level 26 21-32 MMOL/L Anion Gap 11 5-14 MMOL/L Blood Urea Nitrogen 24 H 7-18 MG/DL Creatinine 2.64 H 0.60-1.30 MG/DL Estimat Glomerular Filtration Rate 18 BUN/Creatinine Ratio 9 Glucose Level 227 H 70-105 MG/DL Calcium Level 8.8 8.5-10.1 MG/DL Magnesium Level 1.5 L 1.8-2.4 MG/DL Total Bilirubin 0.4 0.1-1.0 MG/DL Aspartate Amino Transf (AST/SGOT) 19 5-34 U/L Alanine Aminotransferase (ALT/SGPT) 9 0-55 U/L Alkaline Phosphatase 130 40-136 U/L Troponin I < 0.30 <0.30 NG/ML B-Type Natriuretic Peptide 528.8 H <100.0 PG/ML Total Protein 6.4 6.4-8.2 GM/DL Albumin 3.2 3.2-4.5 GM/DL Lipase 19 8-78 U/L My Orders Orders - DARLENE MYERS BNP (04/30/17 01:44) Cbc With Automated Diff (04/30/17 01:44) Comprehensive Metabolic Panel (04/30/17 01:44) Lipase (04/30/17 01:44) Magnesium (04/30/17 01:44) Troponin I (04/30/17 01:44) Chest 1 View, Ap/Pa Only (04/30/17 01:44) Ekg Tracing (04/30/17 01:44) Saline Lock/Iv-Start (04/30/17 01:44) Monitor-Rhythm Ecg Trace Only (04/30/17 01:44) Fentanyl Injection (Sublimaze Injection (04/30/17 01:44) Ondansetron Injection (Zofran Injectio (04/30/17 01:45) Protime With Inr (04/30/17 01:44) Partial Thromboplastin Time (04/30/17 01:44) Albuterol/Ipra Inhalation Soln (Duoneb I (04/30/17 02:00) Svn Sm Volume Nebulizer Rt-Rfs (04/30/17 01:54) Magnesium Oxide Tablet (Mag Ox Tablet) (04/30/17 03:30) Ekg Tracing (04/30/17 08:00) Troponin I (04/30/17 08:00) Medications Given in ED Current Medications Medications Dose Ordered Sig/Adela Route Start Time Stop Time Status Last Admin Dose Admin Albuterol/ Ipratropium 3 ml ONCE ONCE INH 04/30/17 02:00 04/30/17 02:01 DC 04/30/17 02:41 3 ML Magnesium Oxide 400 mg ONCE ONCE PO 04/30/17 03:30 04/30/17 03:31 DC 04/30/17 03:39 400 MG Ondansetron HCl 4 mg ONCE ONCE IVP 04/30/17 01:45 04/30/17 01:52 DC 04/30/17 02:13 4 MG Vital Signs/I&O Vital Sign - Last 12Hours 04/30/17 04/30/17 00:58 02:42 Temp 98.1 Pulse 72 Resp 20 B/P (MAP) 187/96 Pulse Ox 98 99 O2 Delivery Nasal Cannula Nasal Cannula O2 Flow Rate 3.00 3.00 Blood Pressure Mean: 126 ECG Initial ECG Impression Date: Apr 30, 2017 Initial ECG Impression Time: 02:02 Initial ECG Rate: 74 Initial ECG Rhythm: Normal Sinus Initial ECG Intervals: Normal Initial ECG Impression: Normal, Nonspecific Changes Initial ECG Comparisson: Unchanged Comment No ST elevation or depression. Low voltage study Diagnostic Imaging Diagonstic Imaging: Xray Plain Films/CT/US/NM/MRI: chest Comments No acute cardiopulmonary processes noted. Stable from chest x-ray yesterday. Reviewed: Reviewed by Me Consults Consults : Consulting Physician: KATERYNA MCDUFFIE MD Consults Notes Discussed the case and if the patient's having this much trouble plus dialysis then she will need to go somewhere where they have inpatient dialysis as well as her production support specialist. He feels that she will probably need more than just an observation stay to rule out acute coronary disease. Departure Impression Impression: Primary Impression: Chest pain Qualified Codes: R07.9 - Chest pain, unspecified Additional Impressions: ACS (acute coronary syndrome) Cellulitis of right lower extremity without foot Disposition: 02 XFER SHT-TRM HOSP Condition: Stable Transfer Transfer Notes 0344: Left message on [place] [address] call line. 0348: Spoke with the vector control assistant to get a Percher oncall, Dr Parra. He accepts the patient on observation status to the cardiac floor. 0435: [facility] called and said it would be a few more minutes before they have a bed available. 0550: Informed Katia that EMS has arrived and is taking the patient out now. Transfer Time: 05:47 Transfer Facility: [facility] Method of Transfer: EMS ([facility]) Departure-Patient Inst. Referrals: ISABEL HUMPHREYS MD (PCP/Family) Primary Care Physician Copy Copies To 1: ISABEL HUMPHREYS MD, TITUS J Apr 30, 2017 01:53
[2017-04-30] MEDS: ONDANSETRON 4 MG/2 ML (SDV) Z0FRAN IVP ONE (02:13)
[2017-04-30] MEDS: fentaNYL INJECTION 100 MCG/2 ML AMP IVP STA (02:13)
[2017-04-30 02:30] LABS: BASOPHILS % (AUTO) 1 % (0-10); EOSINOPHILS # (AUTO) 0.1 10^3/uL (0.0-0.3); EOSINOPHILS % (AUTO) 3 % (0-10); LYMPHOCYTES # (AUTO) 0.6 X 10^3 (1.0-4.0); LYMPHOCYTES % (AUTO) 17 % (12-44); MEAN CORPUSCULAR HEMOGLOBIN 31 PG (25-34); MEAN CORPUSCULAR HGB CONC 33 G/DL (32-36); MEAN CORPUSCULAR VOLUME 94 FL (80-99); MEAN PLATELET VOLUME 9.7 FL (7.4-10.4); MONOCYTES # (AUTO) 0.3 X 10^3 (0.0-1.0); MONOCYTES % (AUTO) 8 % (0-12); NEUTROPHILS # (AUTO) 2.6 X 10^3 (1.8-7.8); NEUTROPHILS % (AUTO) 72 % (42-75); PLATELET COUNT 93 10^3/uL (130-400); RED BLOOD COUNT 3.92 10^6/uL (4.35-5.85); RED CELL DISTRIBUTION WIDTH 13.3 % (10.0-14.5); WHITE BLOOD COUNT 3.6 10^3/uL (4.3-11.0)
[2017-04-30 02:39] LABS: PROTHROMBIN TIME PATIENT 13.4 SEC (12.2-14.7)
[2017-04-30] MEDS: RT-ALBUTEROL/IPRATROPIUM 3 ML (DUONEB) VIAL INH ONE (02:41)
[2017-04-30 02:50] LABS: ALANINE AMINOTRANSFERASE 9 U/L (0-55); ALBUMIN 3.2 GM/DL (3.2-4.5); ANION GAP 11 MMOL/L (5-14); ASPARTATE AMINO TRANSFERASE 19 U/L (5-34); BILIRUBIN,TOTAL 0.4 MG/DL (0.1-1.0); BLOOD UREA NITROGEN 24 MG/DL (7-18); BUN/CREATININE RATIO 9; CALCIUM 8.8 MG/DL (8.5-10.1); CARBON DIOXIDE 26 MMOL/L (21-32); CHLORIDE 100 MMOL/L (98-107); CREATININE SERUM 2.64 MG/DL (0.60-1.30); GFR ESTIMATED 18; GLUCOSE 227 MG/DL (70-105); LIPASE 19 U/L (8-78); MAGNESIUM 1.5 MG/DL (1.8-2.4); POTASSIUM 4.3 MMOL/L (3.6-5.0); SODIUM 137 MMOL/L (135-145); TOTAL PROTEIN 6.4 GM/DL (6.4-8.2)
[2017-04-30 02:56] LABS: TROPONIN I < 0.30 NG/ML (<0.30)
[2017-04-30] MEDS: MAGNESIUM OXIDE (MAG-OX)400 MG TAB PO ONE (03:39)
[2017-04-30 05:45] VITALS: BP 165/81
--- NOTE | 2017-04-30 08:24 | Diagnostic Imaging Report ---
INDICATION: Hypertension PA chest obtained at 2:09 hours a.m. and compared with 04/29/17. Cardiomegaly is again noted. The dual-lumen dialysis catheter is unchanged. There is mild central venous prominence. There are mild increased basilar markings which appear chronic. There is no definite acute finding Impression: Cardiomegaly and mild central vascular prominence and chronic increased basilar markings. Unchanged dialysis catheter. No new abnormality. Dictated by: Dictated on workstation # [id number]
== END 2017-04-30 05:45 | disposition short-term general hospital (02) ==
LOC: EDUNIT# 00:09 → ER 00:11
DX: R07.2 Precordial pain (principal); I24.9 Acute ischemic heart disease, unspecified; L03.115 Cellulitis of right lower limb; J44.9 Chronic obstructive pulmonary disease, unspecified; I25.10 Atherosclerotic heart disease of native coronary artery without angina pectoris; E03.9 Hypothyroidism, unspecified; F41.0 Panic disorder [episodic paroxysmal anxiety]; E11.22 Type 2 diabetes mellitus with diabetic chronic kidney disease; I12.0 Hypertensive chronic kidney disease with stage 5 chronic kidney disease or end stage renal disease; N18.6 End stage renal disease; K21.9 Gastro-esophageal reflux disease without esophagitis; M19.90 Unspecified osteoarthritis, unspecified site; Z99.2 Dependence on renal dialysis; Z86.73 Personal history of transient ischemic attack (TIA), and cerebral infarction without residual deficits; Z79.82 Long term (current) use of aspirin; Z80.41 Family history of malignant neoplasm of ovary; Z86.19 Personal history of other infectious and parasitic diseases; Z82.49 Family history of ischemic heart disease and other diseases of the circulatory system; Z79.4 Long term (current) use of insulin; Z87.19 Personal history of other diseases of the digestive system; Z90.49 Acquired absence of other specified parts of digestive tract; Z95.5 Presence of coronary angioplasty implant and graft; Z90.710 Acquired absence of both cervix and uterus
CPT/HCPCS: 36415; 71010; 80053; 83690; 83735; 83880; 84484; 85025; 85610; 85730; 93041; 94640

== ENCOUNTER → 2017-05-07 | Emergency (ER) | payer MEDICARE, MEDICAID ==
[~2017-05-07] VITALS: Ht 160 cm; Wt 100.1 kg
--- OUTSIDE RECORDS SUMMARY | 2017-05-07 12:45 | XMS REPORT | Clinical Summary ---
Author Author [facility] Organization [facility] Address Unknown Phone Unavailable Care Team Providers Care Information Engineer Name Role Phone PCP Unavailable Source Comments Some departments are not documenting in the electronic medical record. If you do not see the information that you expected, contact Release of Information in the Health Information Management department at [phone] for further assistance in locating additional records.[facility] Allergies Not on File Current Medications Not [...]
--- OUTSIDE RECORDS SUMMARY | 2017-05-07 12:59 | XMS REPORT | Clinical Summary ---
Author Author [facility] Organization [facility] Address Unknown Phone Unavailable Care Team Providers Care Floatlight Powder Mixer Name Role Phone PCP Unavailable Source Comments Some departments are not documenting in the electronic medical record. If you do not see the information that you expected, contact Release of Information in the Health Information Management department at [phone] for further assistance in locating additional records.[facility] Allergies Not on File Current Medications Not [...]
[2017-05-07 13:39] LABS: BASOPHILS % (AUTO) 0 % (0-10); EOSINOPHILS % (AUTO) 4 % (0-10); LYMPHOCYTES # (AUTO) 0.1 X 10^3 (1.0-4.0); LYMPHOCYTES % (AUTO) 17 % (12-44); MEAN CORPUSCULAR HEMOGLOBIN 31 PG (25-34); MEAN CORPUSCULAR HGB CONC 33 G/DL (32-36); MEAN CORPUSCULAR VOLUME 94 FL (80-99); MEAN PLATELET VOLUME 10.2 FL (7.4-10.4); MONOCYTES % (AUTO) 9 % (0-12); NEUTROPHILS # (AUTO) 0.3 X 10^3 (1.8-7.8); NEUTROPHILS % (AUTO) 70 % (42-75); PLATELET COUNT 102 10^3/uL (130-400); RED BLOOD COUNT 3.85 10^6/uL (4.35-5.85); RED CELL DISTRIBUTION WIDTH 12.7 % (10.0-14.5)
[2017-05-07 13:40] LABS: WHITE BLOOD COUNT 0.5 10^3/uL (4.3-11.0)
[2017-05-07 13:53] LABS: ALANINE AMINOTRANSFERASE < 6 U/L (0-55); ALBUMIN 3.1 GM/DL (3.2-4.5); ANION GAP 9 MMOL/L (5-14); ASPARTATE AMINO TRANSFERASE 14 U/L (5-34); BILIRUBIN,TOTAL 0.5 MG/DL (0.1-1.0); BLOOD UREA NITROGEN 20 MG/DL (7-18); BUN/CREATININE RATIO 6; CALCIUM 8.7 MG/DL (8.5-10.1); CARBON DIOXIDE 24 MMOL/L (21-32); CHLORIDE 95 MMOL/L (98-107); CREATININE SERUM 3.57 MG/DL (0.60-1.30); GFR ESTIMATED 13; GLUCOSE 299 MG/DL (70-105); POTASSIUM 4.3 MMOL/L (3.6-5.0); SODIUM 128 MMOL/L (135-145); TOTAL PROTEIN 6.5 GM/DL (6.4-8.2)
[2017-05-07 13:59] LABS: TROPONIN I < 0.30 NG/ML (<0.30)
--- NOTE | 2017-05-07 14:32 | ED Chest Pain ---
General Chief Complaint: Cardiac/General Problems Stated Complaint: CP/ABD PAIN Nursing Triage Note: c/o severe upper abd pain and chest pain. States no one ever listens to her and that she hurt this way in the hospital. States that the only thing that helped was Diludid but the pills do nothing. Was to have dialysis today. Moaning and crying. but will stop and talk appropiately for the questions. Nursing Sepsis Screen: No Definite Risk Source: patient Exam Limitations: no limitations History of Present Illness Time seen by provider: 14:00 Initial Comments The patient is a 66-year-old white female who presents with a chief complaint of chest pain and abdominal pain. She has had a previous 101 contacts at this institution. She has had many admissions to the emergency room for chest pain or abdominal pain including one a week ago. She reports that she was in the hospital at [facility] last week and was discharged on Wednesday. She did not feel that she was ready for discharge. She reports the only thing that helps her pain is hydromorphone. She was to have hemodialysis today but did not feel well enough to do so. She has no clarity as to what the arrangements are for dialysis on Wednesday which is . Severity/Quality: moderate, severe Location: central Radiation: epigastric Activities at Onset: none Allergies and Home Medications Allergies Coded Allergies: propoxyphene (Verified Allergy, Mild, DIZZINESS, 02/20/14) codeine (Verified Allergy, Unknown, CAN TAKE OXYCODONE, 02/20/14) esomeprazole (Verified Allergy, Unknown, 02/20/14) ketorolac (Verified Allergy, Unknown, PT TAKES ASPIRIN AT HOME, 02/20/14) levofloxacin (Verified Allergy, Unknown, 02/20/14) promethazine (Verified Allergy, Unknown, 02/20/14) Uncoded Allergies: TAPE (Adverse Reaction, Mild, RASH, 11/23/14) Home Medications Albuterol Sulfate 8.5 Gm Hfa.aer.ad, 2 PUFF INH Q4H PRN for SHORTNESS OF BREATH, (Reported) Aspirin 81 Mg Tablet.dr, 81 MG PO DAILY, (Reported) Budesonide/Formoterol Fumarate 10.2 Gm Hfa.aer.ad, 2 PUFF INH BID, (Reported) Cephalexin 500 Mg Capsule, 500 MG PO BID, #14 Prescribed by: VERNON FLORES on 08/24/16 1847 Clopidogrel Bisulfate 75 Mg Tablet, 75 MG PO HS, (Reported) Cyanocobalamin 50 Mcg Lozenge, 50 MCG PO DAILY, (Reported) Doxazosin Mesylate 4 Mg Tablet, 4 MG PO DAILY, (Reported) Ezetimibe 10 Mg Tablet, 10 MG PO HS, (Reported) Furosemide 40 Mg Tablet, 40 MG PO DAILY, (Reported) Gabapentin 300 Mg Capsule, 300 MG PO TID, (Reported) Gentamicin Sulfate 5 Ml Drops, 1 DROP OU Q6H PRN for ALLERGIES, (Reported) Ibuprofen 800 Mg Tablet, 800 MG PO BID PRN for PAIN, (Reported) Insulin Aspart 100 Unit/1 Ml Susp, SQ UD, (Reported) 201-250 = 2 UNITS 251-300 = 4 UNITS 301-350 = 6 UNITS 351-400 = 8 UNITS IF > THAN 400, CALL PHYSICIAN Insuln Asp Prt/Insulin Aspart 300 Units/3 Ml Solution, 10 UNITS SQ HS, (Reported ) Insuln Asp Prt/Insulin Aspart 300 Units/3 Ml Solution, 30 UNITS SC DAILY, ( Reported) Isosorbide Mononitrate 30 Mg Tab.er.24h, 15 MG PO HS, (Reported) TAKES 1/2 (30MG) TABLET Levothyroxine Sodium 50 Mcg Tablet, 50 MCG PO DAILY, (Reported) Lorazepam 0.5 Mg Tablet, 0.5 MG PO TID PRN for ANXIETY, (Reported) Metoprolol Succinate 200 Mg Tab.er.24h, 200 MG PO DAILY, (Reported) Montelukast Sodium 10 Mg Tablet, 10 MG PO HS, (Reported) Nitroglycerin 0.4 Mg Tab.subl, 0.4 MG SL UD PRN for CHEST PAIN, (Reported) PLACE 1 TABLET UNDER TONGUE EVERY 5 MINUTES X 3 DOSES NEEDED FOR CHEST PAIN Nystatin 15 Gm Powder, TOP BID PRN for RASH, (Reported) Omeprazole 40 Mg Capsule.dr, 40 MG PO DAILY, (Reported) Ondansetron HCl 4 Mg Tablet, 4 MG SL TID PRN for NAUSEA, (Reported) Oxycodone HCl/Acetaminophen 1 Each Tablet, 1 TAB PO Q6H PRN for PAIN, (Reported) Review of Systems Constitutional: see HPI EENTM: No Symptoms Reported Respiratory: Shortness of Air, SOA With Exertion Cardiovascular: Chest Pain Gastrointestinal: Abdomen Distended, Abdominal Pain Genitourinary: Other (renal failure) Musculoskeletal: other (generalized pain) Skin: no symptoms reported Psychiatric/Neurological: Depressed Endocrine: Other (diabetes type II) Hematologic/Lymphatic: No Symptoms Reported Past Qzophcp-Xvziyy-Jtsqbg Hx Patient Social History Alcohol Use: Denies Use Recreational Drug Use: No Smoking Status: Never a Smoker 2nd Hand Smoke Exposure: No Recent Foreign Travel: No Contact w/Someone Who Travel: No Recent Infectious Disease Expo: No Recent Hopitalizations: Yes Physical Abuse: No Sexual Abuse: No Mistreated: No Fear: No Immunizations Up To Date Tetanus Booster (TDap): Unknown PED Vaccines UTD: Yes Date of Pneumonia Vaccine: Feb 04, 2011 Date of Influenza Vaccine: Jun 08, 2017 Seasonal Allergies Seasonal Allergies: Yes Surgeries History of Surgeries: Yes (gallbladder, hiatal hernia, back and eye surgery) Surgeries: Abdominal, Appendectomy, Arteriovenous Shunt, Cardiac, Coronary Stent, Dialysis, Eye Surgery, Gallbladder, Hysterectomy, Oophorectomy, Orthopedic, Vascular Surgery Respiratory History of Respiratory Disorde: Yes Respiratory Disorders: Asthma, COPD Currently Using CPAP: No Currently Using BIPAP: No Cardiovascular History of Cardiac Disorders: Yes Cardiac Disorders: Coronary Artery Disease, Hypertension Neurological History of Neurological Disord: Yes Neurological Disorders: Stroke Reproductive System Hx Reproductive Disorders: Yes Sexually Transmitted Disease: No 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 Genitourinary History of Genitourinary Disor: No Genitourinary Disorders: Renal Failure, Dialysis Gastrointestinal History of Gastrointestinal Di: Yes (SPASTIC COLON) Gastrointestinal Disorders: Gastroesophageal Reflux, Diverticulosis, Pancreatitis Musculoskeletal History of Musculoskeletal Dis: Yes (SCIATICA CHRONIC, RIGHT ARM FX 2015- CHRONIC RIGHT ARM PAIN ) Musculoskeletal Disorders: Arthritis, Fibromyalgia, Chronic Back Pain, Fractures Endocrine History of Endocrine Disorders: Yes Endocrine Disorders: Diabetes, Insulin dep, Hypothyroidsim HEENT History of HEENT Disorders: Yes HEENT Disorders: Cataract Cancer History of Cancer: No Psychosocial History of Psychiatric Problem: Yes (PANIC ATTACKS) Behavioral Health Disorders: Anxiety Suicide Risk Score: 0 Integumentary History of Skin or Integumenta: Yes (HX MRSA ) Blood Transfusions History of Blood Disorders: Yes (being treated by dr. rogel for low blood counts /ANEMIA) Adverse Reaction to a Blood Tr: No (does not want to receieve blood products) Family Medical History Family Medial History: Cancer 03 MOTHER (OVARIAN CANCER) Congestive heart failure 09 BROTHER ( OF CHF) DVT 09 SISTER FH: COPD (chronic obstructive pulmonary disease) 09 SISTER FH: bipolar disorder 09 BROTHER FH: emphysema 03 FATHER FHx: multiple sclerosis 09 BROTHER Family history: Cardiovascular disease 03 FATHER, Onset:Unknown Family history: Diabetes mellitus 03 MOTHER 09 BROTHER Family history: Hypertension 09 SISTER (ACTUALLY HAS LOW BLOOD PRESSURE NOT HIGH) Physical Exam Vital Signs Vital Sign - Last 12Hours 05/07/17 12:55 Temp 98.0 Pulse 91 Resp 18 B/P (MAP) 121/48 Pulse Ox 99 O2 Delivery Nasal Cannula O2 Flow Rate 3.00 Capillary Refill : Less Than 3 Seconds General Appearance: Anxious, Other (moaning loudly with pain. When asked a question this stops) HEENT: Normal ENT Inspection Neck: Normal Inspection Respiratory: Decreased Breath Sounds (distant) Cardiovascular: Regular Rate, Rhythm, No Edema, No Gallop, No JVD, No Murmur, Normal Peripheral Pulses Gastrointestinal: Abnormal Bowel Sounds, Other (soft without guarding, rebound) Extremity: Normal Capillary Refill, Normal Inspection, Normal Range of Motion, Non Tender, No Calf Tenderness, No Pedal Edema Neurologic/Psychiatric: Depressed Affect Skin: Normal Color, Warm/Dry Lymphatic: No Adenopathy Progress/Results/Core Measures Results/Orders Lab Results Laboratory Tests Test 05/07/17 13:15 Range/Units White Blood Count 0.5 *L 4.3-11.0 10^3/uL Red Blood Count 3.85 L 4.35-5.85 10^6/uL Hemoglobin 12.0 11.5-16.0 G/DL Hematocrit 36 35-52 % Mean Corpuscular Volume 94 80-99 FL Mean Corpuscular Hemoglobin 31 25-34 PG Mean Corpuscular Hemoglobin Concent 33 32-36 G/DL Red Cell Distribution Width 12.7 10.0-14.5 % Platelet Count 102 L 130-400 10^3/uL Mean Platelet Volume 10.2 7.4-10.4 FL Neutrophils (%) (Auto) 70 42-75 % Lymphocytes (%) (Auto) 17 12-44 % Monocytes (%) (Auto) 9 0-12 % Eosinophils (%) (Auto) 4 0-10 % Basophils (%) (Auto) 0 0-10 % Neutrophils # (Auto) 0.3 L 1.8-7.8 X 10^3 Lymphocytes # (Auto) 0.1 L 1.0-4.0 X 10^3 Monocytes # (Auto) 0.0 0.0-1.0 X 10^3 Eosinophils # (Auto) 0.0 0.0-0.3 10^3/uL Basophils # (Auto) 0.0 0.0-0.1 10^3/uL Sodium Level 128 L 135-145 MMOL/L Potassium Level 4.3 3.6-5.0 MMOL/L Chloride Level 95 L 98-107 MMOL/L Carbon Dioxide Level 24 21-32 MMOL/L Anion Gap 9 5-14 MMOL/L Blood Urea Nitrogen 20 H 7-18 MG/DL Creatinine 3.57 H 0.60-1.30 MG/DL Estimat Glomerular Filtration Rate 13 BUN/Creatinine Ratio 6 Glucose Level 299 H 70-105 MG/DL Calcium Level 8.7 8.5-10.1 MG/DL Total Bilirubin 0.5 0.1-1.0 MG/DL Aspartate Amino Transf (AST/SGOT) 14 5-34 U/L Alanine Aminotransferase (ALT/SGPT) < 6 0-55 U/L Alkaline Phosphatase 101 40-136 U/L Troponin I < 0.30 <0.30 NG/ML Total Protein 6.5 6.4-8.2 GM/DL Albumin 3.1 L 3.2-4.5 GM/DL My Orders Orders - TREVOR TURCIOS MD Ekg Tracing (05/07/17 13:31) Cbc With Automated Diff (05/07/17 13:31) Comprehensive Metabolic Panel (05/07/17 13:31) Troponin I (05/07/17 13:31) Hydromorphone Injection (Dilaudid Inject (05/07/17 15:00) Vital Signs/I&O Vital Sign - Last 12Hours 05/07/17 12:55 Temp 98.0 Pulse 91 Resp 18 B/P (MAP) 121/48 Pulse Ox 99 O2 Delivery Nasal Cannula O2 Flow Rate 3.00 Blood Pressure Mean: 72 Departure Communication (Admissions) Progress Notes [address] Morales, hospitalist at [facility]. He will accept in transfer for granulocytopenia/need to dialyze Impression Impression: Primary Impression: granulocytopenia Additional Impression: renal failure Disposition: 02 XFER SHT-TRM HOSP Condition: Stable/Unchanged Transfer Time Spoke to Accepting Phy: 15:10 Transfer Progress Notes Discussed with hospitalist at [facility]. He is agreed to take the patient in transfer for granulocytopenia and missed dialysis. Departure-Patient Inst. Referrals: ISABEL HUMPHREYS MD (PCP/Family) Primary Care Physician TREVOR TURCIOS MD May 07, 2017 14:31
[2017-05-07] MEDS: HYDROmorphone (DILAUDID) 2 MG/ML VIAL IVP ONE (15:14)
[2017-05-07] MEDS: PIPERACILLIN SODIUM/TAZOBACTAM 4.5 GM in NS (IVPB) 100 ML IV ONE (16:19)
[2017-05-07 17:00] VITALS: BP 151/74
== END | disposition short-term general hospital (02) ==
LOC: ER 12:43
DX: D70.9 Neutropenia, unspecified (principal); E11.22 Type 2 diabetes mellitus with diabetic chronic kidney disease; I12.0 Hypertensive chronic kidney disease with stage 5 chronic kidney disease or end stage renal disease; N18.6 End stage renal disease; E03.9 Hypothyroidism, unspecified; I25.10 Atherosclerotic heart disease of native coronary artery without angina pectoris; F41.0 Panic disorder [episodic paroxysmal anxiety]; K21.9 Gastro-esophageal reflux disease without esophagitis; J44.9 Chronic obstructive pulmonary disease, unspecified; M19.90 Unspecified osteoarthritis, unspecified site; Z86.73 Personal history of transient ischemic attack (TIA), and cerebral infarction without residual deficits; Z82.49 Family history of ischemic heart disease and other diseases of the circulatory system; Z86.14 Personal history of Methicillin resistant Staphylococcus aureus infection; Z80.41 Family history of malignant neoplasm of ovary; Z99.2 Dependence on renal dialysis; Z79.82 Long term (current) use of aspirin; Z79.4 Long term (current) use of insulin; Z87.19 Personal history of other diseases of the digestive system; Z90.89 Acquired absence of other organs; Z95.5 Presence of coronary angioplasty implant and graft; Z90.710 Acquired absence of both cervix and uterus

== ENCOUNTER → 2017-05-13 | Outpatient (CLI) | payer MEDICARE, MEDICAID | LOC: WOUNDCARE 10:27 | PROVIDERS: ATTEND Internal Medicine | DX: E11.622 Type 2 diabetes mellitus with other skin ulcer (principal); I87.311 Chronic venous hypertension (idiopathic) with ulcer of right lower extremity; N18.6 End stage renal disease | CPT/HCPCS: 87070; 87075; 87205; 99213 ==

== ENCOUNTER → 2017-05-13 | Outpatient (CLI) | payer MEDICARE, MEDICAID ==
[2017-05-13 13:21] LABS: BASOPHILS % (AUTO) 0 % (0-10); EOSINOPHILS # (AUTO) 0.1 10^3/uL (0.0-0.3); EOSINOPHILS % (AUTO) 3 % (0-10); LYMPHOCYTES # (AUTO) 0.7 X 10^3 (1.0-4.0); LYMPHOCYTES % (AUTO) 17 % (12-44); MEAN CORPUSCULAR HEMOGLOBIN 31 PG (25-34); MEAN CORPUSCULAR HGB CONC 34 G/DL (32-36); MEAN CORPUSCULAR VOLUME 91 FL (80-99); MEAN PLATELET VOLUME 9.6 FL (7.4-10.4); MONOCYTES # (AUTO) 0.3 X 10^3 (0.0-1.0); MONOCYTES % (AUTO) 8 % (0-12); NEUTROPHILS # (AUTO) 2.9 X 10^3 (1.8-7.8); NEUTROPHILS % (AUTO) 72 % (42-75); PLATELET COUNT 112 10^3/uL (130-400); RED BLOOD COUNT 3.61 10^6/uL (4.35-5.85); RED CELL DISTRIBUTION WIDTH 12.8 % (10.0-14.5)
[2017-05-13 13:45] LABS: ALANINE AMINOTRANSFERASE < 6 U/L (0-55); ALBUMIN 3.2 GM/DL (3.2-4.5); ANION GAP 8 MMOL/L (5-14); ASPARTATE AMINO TRANSFERASE 15 U/L (5-34); BILIRUBIN,TOTAL 0.5 MG/DL (0.1-1.0); BLOOD UREA NITROGEN 18 MG/DL (7-18); BUN/CREATININE RATIO 5; CALCIUM 8.1 MG/DL (8.5-10.1); CARBON DIOXIDE 29 MMOL/L (21-32); CHLORIDE 96 MMOL/L (98-107); CREATININE SERUM 3.62 MG/DL (0.60-1.30); GFR ESTIMATED 13; GLUCOSE 179 MG/DL (70-105); POTASSIUM 3.6 MMOL/L (3.6-5.0); SODIUM 133 MMOL/L (135-145); TOTAL PROTEIN 6.1 GM/DL (6.4-8.2)
[2017-05-13 13:50] LABS: ERYTHROCYTE SEDIMENTATION RATE 37 MM/HR (0-30)
== END ==
LOC: LAB 12:43
PROVIDERS: ATTEND Internal Medicine
DX: E11.622 Type 2 diabetes mellitus with other skin ulcer (principal); L97.812 Non-pressure chronic ulcer of other part of right lower leg with fat layer exposed; I87.323 Chronic venous hypertension (idiopathic) with inflammation of bilateral lower extremity
CPT/HCPCS: 36415; 80053; 83036; 85025; 85652

== ENCOUNTER 2017-05-14 08:38 | Emergency (ER) | payer MEDICARE, MEDICAID ==
[~2017-05-14] VITALS: Ht 162.6 cm; Wt 68.0 kg
--- OUTSIDE RECORDS SUMMARY | 2017-05-14 08:44 | XMS REPORT | Clinical Summary ---
Author Author [facility] Organization [facility] Address Unknown Phone Unavailable Care Team Providers Care Supervisor Cured Meats Name Role Phone PCP Unavailable Source Comments Some departments are not documenting in the electronic medical record. If you do not see the information that you expected, contact Release of Information in the Health Information Management department at [phone] for further assistance in locating additional records.[facility] Allergies Not on File Current [...]
[2017-05-14] MEDS ORDERED: fentaNYL INJECTION 100 MCG/2 ML AMP IM PRN (09:00)
--- NOTE | 2017-05-14 09:05 | ED Integumentary General ---
General Chief Complaint: Skin/Wound Problems Stated Complaint: BLEEDING FROM WOUND Nursing Triage Note: ARRIVED VIA AMBULANCE WITH COMPLAINTS OF BLEEDING FROM LEFT LOWER LEG AFTER HITTING IT AGAINST HER CHAIR. PT RECENTLY HAD A WOUND DEBREIEDMENT DONE LAST WEEK TO WOUND AT [place] [place]. LEG WAS WRAPPED BY A HOME HEALTH NURSE AND IT IS LEAKING THRU. PT COMPLAINTS OF SEVERE LEG PAIN. PT IS SCHEDULED FOR DIALYSIS IN [place] AT 11AM. Source: patient Exam Limitations: no limitations History of Present Illness Time seen by provider: 09:01 Initial Comments The patient is a 66-year-old white female known to me. She was here a week ago today. She is a chronic dialysis patient and had skipped her Wednesday dialysis last week she then presented to the emergency room here. Complaining of pain as usual and general malaise. During her stay she was found to have an unexplained granulocytopenia of 500. She had previously had studies suggesting that her usual level was 4000. She was sent to [facility] as it was clear she was going to require dialysis over the holiday weekend while they were addressing the granulocytopenia. She is due to dialyze at 11 00 today. She has had a wound on her right medial lower leg which she had treated in wound care yesterday.. She apparently did on a wheelchair today ripping it open. The home health care nurse has placed a dressing over it and the wound has bled through. She is on blood thinners and antiplatelet agents Timing/Duration: just prior to arrival Allergies and Home Medications Allergies Coded Allergies: propoxyphene (Verified Allergy, Mild, DIZZINESS, 02/20/14) codeine (Verified Allergy, Unknown, CAN TAKE OXYCODONE, 02/20/14) esomeprazole (Verified Allergy, Unknown, 02/20/14) ketorolac (Verified Allergy, Unknown, PT TAKES ASPIRIN AT HOME, 02/20/14) levofloxacin (Verified Allergy, Unknown, 02/20/14) promethazine (Verified Allergy, Unknown, 02/20/14) Uncoded Allergies: TAPE (Adverse Reaction, Mild, RASH, 11/23/14) Home Medications Albuterol Sulfate 8.5 Gm Hfa.aer.ad, 2 PUFF INH Q4H PRN for SHORTNESS OF BREATH, (Reported) Aspirin 81 Mg Tablet.dr, 81 MG PO DAILY, (Reported) Budesonide/Formoterol Fumarate 10.2 Gm Hfa.aer.ad, 2 PUFF INH BID, (Reported) Cephalexin 500 Mg Capsule, 500 MG PO BID, #14 Prescribed by: VERNON FLORES on 08/24/167 Clopidogrel Bisulfate 75 Mg Tablet, 75 MG PO HS, (Reported) Cyanocobalamin 50 Mcg Lozenge, 50 MCG PO DAILY, (Reported) Doxazosin Mesylate 4 Mg Tablet, 4 MG PO DAILY, (Reported) Ezetimibe 10 Mg Tablet, 10 MG PO HS, (Reported) Furosemide 40 Mg Tablet, 40 MG PO DAILY, (Reported) Gabapentin 300 Mg Capsule, 300 MG PO TID, (Reported) Gentamicin Sulfate 5 Ml Drops, 1 DROP OU Q6H PRN for ALLERGIES, (Reported) Ibuprofen 800 Mg Tablet, 800 MG PO BID PRN for PAIN, (Reported) Insulin Aspart 100 Unit/1 Ml Susp, SQ UD, (Reported) 201-250 = 2 UNITS 251-300 = 4 UNITS 301-350 = 6 UNITS 351-400 = 8 UNITS IF > THAN 400, CALL PHYSICIAN Insuln Asp Prt/Insulin Aspart 300 Units/3 Ml Solution, 10 UNITS SQ HS, (Reported ) Insuln Asp Prt/Insulin Aspart 300 Units/3 Ml Solution, 30 UNITS SC DAILY, ( Reported) Isosorbide Mononitrate 30 Mg Tab.er.24h, 15 MG PO HS, (Reported) TAKES 1/2 (30MG) TABLET Levothyroxine Sodium 50 Mcg Tablet, 50 MCG PO DAILY, (Reported) Lorazepam 0.5 Mg Tablet, 0.5 MG PO TID PRN for ANXIETY, (Reported) Metoprolol Succinate 200 Mg Tab.er.24h, 200 MG PO DAILY, (Reported) Montelukast Sodium 10 Mg Tablet, 10 MG PO HS, (Reported) Nitroglycerin 0.4 Mg Tab.subl, 0.4 MG SL UD PRN for CHEST PAIN, (Reported) PLACE 1 TABLET UNDER TONGUE EVERY 5 MINUTES X 3 DOSES NEEDED FOR CHEST PAIN Nystatin 15 Gm Powder, TOP BID PRN for RASH, (Reported) Omeprazole 40 Mg Capsule.dr, 40 MG PO DAILY, (Reported) Ondansetron HCl 4 Mg Tablet, 4 MG SL TID PRN for NAUSEA, (Reported) Oxycodone HCl/Acetaminophen 1 Each Tablet, 1 TAB PO Q6H PRN for PAIN, (Reported) Constitutional: see HPI EENTM: no symptoms reported Respiratory: no symptoms reported Cardiovascular: no symptoms reported Gastrointestinal: no symptoms reported Genitourinary: no symptoms reported Musculoskeletal: other (Chronic pain issues) Skin: see HPI Endocrine: No Symptoms Reported Hematologic/Lymphatic: No Symptoms Reported Past Grirnnn-Mdaujj-Rrvoda Hx Patient Social History Alcohol Use: Denies Use Recreational Drug Use: No Smoking Status: Unknown if Ever Smoked 2nd Hand Smoke Exposure: No Recent Foreign Travel: No Contact w/Someone Who Travel: No Recent Infectious Disease Expo: No Recent Hopitalizations: Yes Physical Abuse: No Sexual Abuse: No Immunizations Up To Date Tetanus Booster (TDap): Unknown PED Vaccines UTD: Yes Date of Pneumonia Vaccine: Feb 04, 2011 Date of Influenza Vaccine: Jun 08, 2017 Seasonal Allergies Seasonal Allergies: Yes Surgeries History of Surgeries: Yes (gallbladder, hiatal hernia, back and eye surgery) Surgeries: Abdominal, Appendectomy, Arteriovenous Shunt, Cardiac, Coronary Stent, Dialysis, Eye Surgery, Gallbladder, Hysterectomy, Oophorectomy, Orthopedic, Vascular Surgery Respiratory History of Respiratory Disorde: Yes Respiratory Disorders: Asthma, COPD Currently Using CPAP: No Currently Using BIPAP: No Cardiovascular History of Cardiac Disorders: Yes Cardiac Disorders: Coronary Artery Disease, Hypertension Neurological History of Neurological Disord: Yes Neurological Disorders: Stroke Reproductive System Hx Reproductive Disorders: Yes Sexually Transmitted Disease: No HIV/AIDS: 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 Genitourinary History of Genitourinary Disor: No Genitourinary Disorders: Renal Failure, Dialysis Gastrointestinal History of Gastrointestinal Di: Yes (SPASTIC COLON) Gastrointestinal Disorders: Gastroesophageal Reflux, Diverticulosis, Pancreatitis Musculoskeletal History of Musculoskeletal Dis: Yes (SCIATICA CHRONIC, RIGHT ARM FX 2015- CHRONIC RIGHT ARM PAIN ) Musculoskeletal Disorders: Arthritis, Fibromyalgia, Chronic Back Pain, Fractures Endocrine History of Endocrine Disorders: Yes Endocrine Disorders: Diabetes, Insulin dep, Hypothyroidsim HEENT History of HEENT Disorders: Yes HEENT Disorders: Cataract Cancer History of Cancer: No Psychosocial History of Psychiatric Problem: Yes (PANIC ATTACKS) Behavioral Health Disorders: Anxiety Suicide Risk Score: 0 Integumentary History of Skin or Integumenta: Yes (HX MRSA ) Blood Transfusions History of Blood Disorders: Yes (being treated by dr. rogel for low blood counts /ANEMIA) Adverse Reaction to a Blood Tr: No (does not want to receieve blood products) Family Medical History Family Medial History: Cancer 03 MOTHER (OVARIAN CANCER) Congestive heart failure 09 BROTHER ( OF CHF) DVT 09 SISTER FH: COPD (chronic obstructive pulmonary disease) 09 SISTER FH: bipolar disorder 09 BROTHER FH: emphysema 03 FATHER FHx: multiple sclerosis 09 BROTHER Family history: Cardiovascular disease 03 FATHER, Onset:Unknown Family history: Diabetes mellitus 03 MOTHER 09 BROTHER Family history: Hypertension 09 SISTER (ACTUALLY HAS LOW BLOOD PRESSURE NOT HIGH) Physical Exam Vital Signs Vital Sign - Last 12Hours 05/14/17 08:47 Temp 98.0 Pulse 63 Resp 18 B/P (MAP) 147/92 Pulse Ox 96 Capillary Refill : Less Than 3 Seconds General Appearance: other HEENT: normal ENT inspection Neck: full range of motion Cardiovascular: normal peripheral pulses, regular rate, rhythm, no edema, no gallop, no JVD, no murmur Respiratory: chest non-tender, lungs clear, normal breath sounds, no respiratory distress, no accessory muscle use Comments Oozing raised hematoma 4 cm in diameter just above the right medial malleolus Progress/Results/Core Measures Results/Orders My Orders Orders - TREVOR TURCIOS MD Fentanyl Injection (Sublimaze Injection (05/14/17 09:00) Oxycodone/Acet 10/325mg Tablet (Percocet (05/14/17 10:00) Oxycodone/Apap 5/325mg Tablet (Percocet (05/14/17 10:00) Medications Given in ED Current Medications Medications Dose Ordered Sig/Adela Route Start Time Stop Time Status Last Admin Dose Admin Fentanyl Citrate 100 mcg Q1H PRN IM 05/14/17 09:00 05/14/17 09:04 100 MCG Oxycodone/ Acetaminophen 2 tab ONCE ONCE PO 05/14/17 10:00 05/14/17 10:01 DC 05/14/17 10:05 2 TAB Vital Signs/I&O Vital Sign - Last 12Hours 05/14/17 08:47 Temp 98.0 Pulse 63 Resp 18 B/P (MAP) 147/92 Pulse Ox 96 Blood Pressure Mean: 110 Departure Impression Impression: Primary Impression: right distal tibial, medial, hematoma and avulsion Disposition: 01 HOME, SELF-CARE Condition: Stable/Unchanged Departure-Patient Inst. Decision time for Depature: 09:10 Referrals: ISABEL HUMPHREYS MD (PCP/Family) Primary Care Physician Patient Instructions: Wound Care (DC) Add. Discharge Instructions: All discharge instructions reviewed with patient and/or family. Voiced understanding. Leave pressure dressing on until at least Wednesday. Wound care/home health to follow. Present to dialysis as scheduled. TREVOR TURCIOS MD May 14, 2017 09:05
[2017-05-14] MEDS ORDERED: oxyCODONE/APAP 5/325MG (PERCOCET 5) TABLET PO ONE (10:00)
[2017-05-14] MEDS ORDERED: oxyCODONE/APAP 10/325MG (PERCOCET 10) TABLET PO ONE (10:00)
[2017-05-14] MEDS ORDERED: ONDANSETRON 4 MG (ZOFRAN) ORAL DISSOLVE TAB ONE (10:10)
[2017-05-14] MEDS ORDERED: ONDANSETRON 8 MG (ZOFRAN) ORAL DISSOLVE TAB PO ONE (10:15)
[2017-05-14] MEDS ORDERED: ONDANSETRON 4 MG (ZOFRAN) ORAL DISSOLVE TAB PO ONE (10:30)
[2017-05-14 11:00] VITALS: BP 147/68
== END 2017-05-14 10:56 | disposition home or self-care (01) ==
LOC: EDUNIT# 08:38 → ER 08:40
DX: S81.801A Unspecified open wound, right lower leg, initial encounter (principal); J44.9 Chronic obstructive pulmonary disease, unspecified; I25.10 Atherosclerotic heart disease of native coronary artery without angina pectoris; E11.22 Type 2 diabetes mellitus with diabetic chronic kidney disease; I12.0 Hypertensive chronic kidney disease with stage 5 chronic kidney disease or end stage renal disease; N18.6 End stage renal disease; E03.9 Hypothyroidism, unspecified; F41.0 Panic disorder [episodic paroxysmal anxiety]; K21.9 Gastro-esophageal reflux disease without esophagitis; M19.90 Unspecified osteoarthritis, unspecified site; Z80.41 Family history of malignant neoplasm of ovary; Z82.49 Family history of ischemic heart disease and other diseases of the circulatory system; Z86.14 Personal history of Methicillin resistant Staphylococcus aureus infection; Z99.2 Dependence on renal dialysis; Z86.73 Personal history of transient ischemic attack (TIA), and cerebral infarction without residual deficits; Z79.82 Long term (current) use of aspirin; Z87.19 Personal history of other diseases of the digestive system; Z90.49 Acquired absence of other specified parts of digestive tract; Z95.5 Presence of coronary angioplasty implant and graft; Z90.710 Acquired absence of both cervix and uterus; W22.03XA Walked into furniture, initial encounter

== ENCOUNTER 2017-05-27 13:21 | Emergency (ER) | payer MEDICARE, MEDICAID ==
[~2017-05-27] VITALS: Ht 157.5 cm; Wt 86.2 kg
[2017-05-27] MEDS ORDERED: RX-NITROGLYCERIN 0.4 MG TAB BTL 25'S SL PRN (13:45)
[2017-05-27] MEDS ORDERED: ASPIRIN 81 MG CHEW (CHILDREN'S ASA) PO ONE (13:45)
--- OUTSIDE RECORDS SUMMARY | 2017-05-27 13:50 | XMS REPORT | Clinical Summary ---
Author Author [facility] Organization [facility] Address Unknown Phone Unavailable Care Team Providers Care Jig Fitter Name Role Phone PCP Unavailable Source Comments Some departments are not documenting in the electronic medical record. If you do not see the information that you expected, contact Release of Information in the Health Information Management department at [phone] for further assistance in locating additional records.[facility] Allergies Not on File Current Medications Not [...] SCREENING 2016 PREVNAR/PNEUMOVAX (#1) 2016 INFLUENZA VACCINE 06/06/2017 Results Not on filefrom Last 3 Months
[2017-05-27 13:58] LABS: BASOPHILS % (AUTO) 0 % (0-10); EOSINOPHILS # (AUTO) 0.1 10^3/uL (0.0-0.3); EOSINOPHILS % (AUTO) 2 % (0-10); LYMPHOCYTES # (AUTO) 0.6 X 10^3 (1.0-4.0); LYMPHOCYTES % (AUTO) 19 % (12-44); MEAN CORPUSCULAR HEMOGLOBIN 31 PG (25-34); MEAN CORPUSCULAR HGB CONC 33 G/DL (32-36); MEAN CORPUSCULAR VOLUME 95 FL (80-99); MEAN PLATELET VOLUME 10.4 FL (7.4-10.4); MONOCYTES # (AUTO) 0.2 X 10^3 (0.0-1.0); MONOCYTES % (AUTO) 7 % (0-12); NEUTROPHILS # (AUTO) 2.2 X 10^3 (1.8-7.8); NEUTROPHILS % (AUTO) 71 % (42-75); PLATELET COUNT 101 10^3/uL (130-400); RED BLOOD COUNT 3.25 10^6/uL (4.35-5.85); RED CELL DISTRIBUTION WIDTH 12.4 % (10.0-14.5)
[2017-05-27 14:15] LABS: ALANINE AMINOTRANSFERASE 6 U/L (0-55); ALBUMIN 3.2 GM/DL (3.2-4.5); ANION GAP 10 MMOL/L (5-14); ASPARTATE AMINO TRANSFERASE 13 U/L (5-34); BILIRUBIN,TOTAL 0.4 MG/DL (0.1-1.0); BLOOD UREA NITROGEN 18 MG/DL (7-18); BUN/CREATININE RATIO 6; CALCIUM 8.4 MG/DL (8.5-10.1); CARBON DIOXIDE 28 MMOL/L (21-32); CHLORIDE 98 MMOL/L (98-107); CREATININE SERUM 3.02 MG/DL (0.60-1.30); GFR ESTIMATED 16; GLUCOSE 210 MG/DL (70-105); MAGNESIUM 1.9 MG/DL (1.8-2.4); POTASSIUM 4.1 MMOL/L (3.6-5.0); SODIUM 136 MMOL/L (135-145); TOTAL PROTEIN 6.4 GM/DL (6.4-8.2)
--- OUTSIDE RECORDS SUMMARY | 2017-05-27 14:15 | XMS REPORT | Continuity of Care Document ---
Author Author Formerly [facility] Address Unknown Phone Unavailable Allergies Active Description Code Type Severity Reaction Onset Reported/Identified Relationship to Patient Clinical Status Yes acetaminophen [id number] Drug Allergy Mild DIZZINESS 02/20/2014 Yes propoxyphene [id number] Drug Allergy Mild DIZZINESS 02/20/2014 Yes codeine [id number] Drug Allergy Unknown CAN TAKE OXYCOD 02/20/2014 Yes esomeprazole [id number] Drug Allergy Unknown N/A 02/20/2014 Yes ketorolac [id number] Drug Allergy Unknown PT TAKES ASPIRI 02/20/2014 Yes levofloxacin [id number] Drug Allergy Unknown N/A 02/20/2014 Yes promethazine [id number] Drug Allergy Unknown N/A 02/20/2014 Yes TAPE [...] E11.22 TYPE 2 DIABETES MELLITUS W DIABETIC SPECIAL LIBRARY LIBRARIAN 08/05/1501 MALVIN PAYAN MD Ot E66.01 MORBID (SEVERE) OBESITY DUE TO EXCESS CA 08/05/1501 MALVIN PAYAN MD, Ot E83.42 HYPOMAGNESEMIA 08/05/1501 MALVIN PAYAN MD, Ot F32.9 MAJOR DEPRESSIVE DISORDER, SINGLE EPISOD 08/05/1501 MALVIN PAYAN MD, Ot F41.9 ANXIETY DISORDER, UNSPECIFIED 08/05/1501 ORA MD, MALVIN K Ot I12.9 HYPERTENSIVE CHRONIC KIDNEY DISEASE W ST 08/05/1501 MALVIN PAYAN MD Ot I25.10 ATHSCL HEART DISEASE OF [place] CORONARY 08/05/1501 MALVIN PAYAN MD Ot I65.23 OCCLUSION AND STENOSIS OF BILATERAL [place] 08/05/1501 MALVIN PAYAN MD Ot N18.9 CHRONIC KIDNEY DISEASE, UNSPECIFIED 08/05/1501 MALVIN PAYAN MD Ot Z68.41 BODY MASS INDEX (BMI) 40.0-44.9, ADULT 08/05/1501 MALVIN PAYAN MD Ot Z79.4 INSPECTOR WEIGHTS AND MEASURES (CURRENT) USE OF INSULIN 08/05/1501 MALVIN PAYAN [...] JURGEN B 300.00 AN [facility]NSPEC [facility].00 AN ANXIETY UNSPEC 02/06/2010 [facility] [...] NOS 07/26/2011 Ot 414.01 CORONARY ATHEROSCLEROSIS OF [place] CORON 07/26/2011 Ot 496 CHR AIRWAY OBSTRUCT [...] NOS 01/10/2012 Ot 414.01 CORONARY ATHEROSCLEROSIS OF [place] CORON 01/10/2012 Ot 530.81 ESOPHAGEAL REFLUX 01/10/2012 [...] NOS 02/23/2012 Ot 414.01 CORONARY ATHEROSCLEROSIS OF [place] CORON 02/23/2012 Ot 789.09 ABDOMINAL PAIN, OTHER [...] MARIE K Ot 414.01 CORONARY ATHEROSCLEROSIS OF [place] CORON 04/17/2013 JESSIKAAsh HUMMEL ANNE MARIE K [...] R Ot 278.00 OBESITY, NOS 04/27/2013 ISABEL HMUPHREYS MD R Ot 285.9 ANEMIA NOS 04/27/2013 [...] HUMPHREYS MD Ot 414.01 CORONARY ATHEROSCLEROSIS OF [place] CORON 09/09/2013 ISABEL HUMPHREYS MD R Ot 487.1 FLU W RESP MANIFEST NEC 09/09/2013 ISABEL HUMPHREYS MD R Ot 496 CHR AIRWAY OBSTRUCT NEC 09/09/2013 ISABEL HUMPHREYS MD R Ot 564.00 UNSPEC CONSTIPATION 09/09/2013 ISABEL HUMPHRESY MD R Ot 585.9 CHRONIC KIDNEY DISEASE, [...] HUMPHREYS MD, Ot 414.01 CORONARY ATHEROSCLEROSIS OF [place] CORON 02/09/2014 ISABEL HUMPHREYS MD Ot 433.10 [...] 311 DEPRESSIVE DISORDER NOS 05/10/2014 [facility], KAERN R 311 DEPRESSIVE DISORDER NOS 05/10/2014 SOPHIA [...] INFARCT,IN 11/06/2014 Ot 414.01 CORONARY ATHEROSCLEROSIS OF [place] CORON 11/06/2014 Ot 427.31 ATRIAL FIBRILLATION 11/06/2014 [...] MD R Ot 414.01 CORONARY ATHEROSCLEROSIS OF [place] CORON 11/26/2014 ISABEL HUMPHREYS MD R Ot [...] ISABEL R Ot 311 03/11/2015 MARIBELL MARAVILLA INSTALLATION & MAINTENANCE EXECUTIVE Ot 790.6 03/11/2015 JULIANN MARSH, ISABEL R Ot 285.9 03/11/2015 JULIANN MARSH, IASBEL R Ot 460 03/11/2015 MARIBELL MARAVILLA L INSTALLATION & MAINTENANCE EXECUTIVE Ot 272.4 03/11/2015 MARIBELL MARAVILLA L INSTALLATION & MAINTENANCE EXECUTIVE Ot 401.9 03/11/2015 MARIBELL MARAVILLA L INSTALLATION & MAINTENANCE EXECUTIVE Ot 414.00 03/11/2015 JULIANN MARSH, ISABEL R [...] ISABEL R Ot 311 04/26/2015 MARIBELL MARAVILLA INSTALLATION & MAINTENANCE EXECUTIVE Ot 790.6 04/26/2015 JULIANN MARSH, ISABEL R Ot 285.9 04/26/2015 JULIANN MARSH, ISABEL R Ot 460 04/26/2015 MARIBELL MARAVILLA INSTALLATION & MAINTENANCE EXECUTIVE Ot 272.4 04/26/2015 MARIBELL MARAVILLA INSTALLATION & MAINTENANCE EXECUTIVE Ot 401.9 04/26/2015 LEONIDES MARAVILLAHER Dustin INSTALLATION & MAINTENANCE EXECUTIVE Ot 414.00 04/26/2015 JULIANN MARSH, ISABEL R Ot 348.89 04/26/2015 JULIANN MARSH, ISABEL R Ot 437.1 04/26/2015 JULIANN MARSH, ISABEL R Ot 780.97 04/26/2015 JULIANN MARSH, ISABEL R Ot 782.0 04/26/2015 JULAINN MARSH, ISABEL R Ot V76.12 04/26/2015 Ot 250.01 04/26/2015 ORA MARSH, AMLVIN K Ot 244.9 04/26/2015 ORA MARSH, MALVIN [...] 04/26/2015 NICOLETTE MARSH, DULCE Ot 403.90 04/26/2015 NIOCLETTE MARSH, DULCE Ot 585.3 05/01/2015 JULIANN MARSH, [...] ISABEL R Ot 311 06/13/2015 MARIBELL MARAVILLA INSTALLATION & MAINTENANCE EXECUTIVE Ot 790.6 06/13/2015 JULIANN MARSH, ISABEL R Ot 285.9 06/13/2015 JULIANN MARSH, ISABEL R Ot 460 06/13/2015 MARIBELL MARAVILLA INSTALLATION & MAINTENANCE EXECUTIVE Ot 272.4 06/13/2015 MARIBELL MARAVILLA INSTALLATION & MAINTENANCE EXECUTIVE Ot 401.9 06/13/2015 MARIBELL MARAVILLA INSTALLATION & MAINTENANCE EXECUTIVE Ot 414.00 06/13/2015 JULIANN MARSH, ISABEL R [...] R Ot I25.10 ATHSCL HEART DISEASE OF [place] CORONARY 06/14/2015 JULIANN MARSH, ISABEL Zaidi Ot I25.2 OLD MYOCARDIAL INFARCTION 06/14/2015 JULIANN MARSH, ISABEL Zaidi Ot N18.4 CHRONIC KIDNEY DISEASE, STAGE 4 (SEVERE) 06/14/2015 ISABEL HUMPHREYS MD Ot R00.2 PALPITATIONS 06/14/2015 JULIANN MARSH, ISABEL Zaidi Ot R07.9 CHEST PAIN, UNSPECIFIED 06/14/2015 JULIANN MARSH, ISABEL Zaidi Ot Z79.4 INSPECTOR WEIGHTS AND MEASURES (CURRENT) USE OF INSULIN 07/15/2015 ORA MARSH, [...] ISABEL R Ot 311 07/15/2015 MARIBELL MARAVILLA INSTALLATION & MAINTENANCE EXECUTIVE Ot 790.6 07/15/2015 JULIANN MARSH, ISABEL R Ot 285.9 07/15/2015 JULIANN MARSH, ISABEL R Ot 460 07/15/2015 MARIBELL MARAVILLA INSTALLATION & MAINTENANCE EXECUTIVE Ot 272.4 07/15/2015 MARIBELL MARAVILLA INSTALLATION & MAINTENANCE EXECUTIVE Ot 401.9 07/15/2015 MARIBELL MARAVILLA INSTALLATION & MAINTENANCE EXECUTIVE Ot 414.00 07/15/2015 JULIANN MARSH, ISABEL R [...] ISABEL R Ot 311 08/06/2015 MARIBELL MARAVILLA INSTALLATION & MAINTENANCE EXECUTIVE Ot 790.6 08/06/2015 JULIANN MARSH, ISABEL R Ot 285.9 08/06/2015 JULIANN MARSH, ISABEL R Ot 460 08/06/2015 MARIBELL MARAVILLA INSTALLATION & MAINTENANCE EXECUTIVE Ot 272.4 08/06/2015 MARIBELL MARAVILLA INSTALLATION & MAINTENANCE EXECUTIVE Ot 401.9 08/06/2015 MARIBELL MARAVILLA INSTALLATION & MAINTENANCE EXECUTIVE Ot 414.00 08/06/2015 JULIANN MARSH, ISABEL R [...] MARSH, MALVIN K Ot Z79.899 09/02/2015 ORA AMRSH, MALVIN Darden Ot D63.1 09/02/2015 ORA MARSH, [...] ORA MARSH, MALVIN Darden Ot I65.23 09/02/2015 ROA MARSH, MALVIN Darden Ot N18.9 09/02/2015 ORA MARSH, MALVIN Darden Ot Z68.41 09/02/2015 ORA MARSH, MALVIN Darden Ot Z79.4 09/02/2015 ORA MARSH, MALVIN Darden Ot Z79.899 09/02/2015 Ot 414.01 09/02/2015 Ot 272.4 09/02/2015 Ot V58.69 09/02/2015 Ot 414.00 09/02/2015 JULIANN MARSH, ISABEL R Ot 300.00 09/02/2015 JULIANN MARSH, ISABEL R Ot 311 09/02/2015 MARIBELL MARAVILLA INSTALLATION & MAINTENANCE EXECUTIVE Ot 790.6 09/02/2015 JULIANN MARSH, ISABEL R Ot 285.9 09/02/2015 JULIANN MARSH, ISABEL R Ot 460 09/02/2015 MARIBELL MARAVILLA INSTALLATION & MAINTENANCE EXECUTIVE Ot 272.4 09/02/2015 MARIBELL MARAVILLA INSTALLATION & MAINTENANCE EXECUTIVE Ot 401.9 09/02/2015 MARIBELL MARAVILLA INSTALLATION & MAINTENANCE EXECUTIVE Ot 414.00 09/02/2015 JULIANN MARSH, ISABEL R [...] E11.22 TYPE 2 DIABETES MELLITUS W DIABETIC SPECIAL LIBRARY LIBRARIAN 09/04/2015 MALVIN PAYAN MD, Ot E66.01 MORBID (SEVERE) OBESITY DUE TO EXCESS CA 09/04/2015 MALVIN PAYAN MD, Ot E83.42 HYPOMAGNESEMIA 09/04/2015 MALVIN PAYAN MD, Ot F32.9 MAJOR DEPRESSIVE DISORDER, SINGLE EPISOD 09/04/2015 MALVIN PAYAN MD, Ot F41.9 ANXIETY DISORDER, UNSPECIFIED 09/04/2015 MALVIN PAYAN MD, Ot I12.9 HYPERTENSIVE CHRONIC KIDNEY DISEASE W ST 09/04/2015 MALVIN PAYAN MD, Ot I25.10 ATHSCL HEART DISEASE OF [place] CORONARY 09/04/2015 MALVIN PAYAN MD, Ot I65.23 [...] 09/04/2015 MALVIN PAYAN MD, Ot Z79.899 OTHER INSPECTOR WEIGHTS AND MEASURES (CURRENT) DRUG THERAPY 09/09/2015 MALVIN PAYAN MD, [...] Darden Ot F41.9 09/09/2015 ORA MARSH, MALVIN aDrden Ot I12.9 09/09/2015 ORA MARSH, MALVIN Darden [...] R Ot 311 10/22/2015 TAIWO MARIBELL L INSTALLATION & MAINTENANCE EXECUTIVE Ot 790.6 10/22/2015 JULIANN MARSH, ISABEL R Ot 285.9 10/22/2015 JULIANN MARSH, ISABEL R Ot 460 10/22/2015 LEONIDES MARAVILLAHER L INSTALLATION & MAINTENANCE EXECUTIVE Ot 272.4 10/22/2015 TAIWO MARIBELL L INSTALLATION & MAINTENANCE EXECUTIVE Ot 401.9 10/22/2015 TAIWO MARIBELL L INSTALLATION & MAINTENANCE EXECUTIVE Ot 414.00 10/22/2015 JULIANN MARSH, ISABEL R [...] R Ot 311 11/04/2015 JOSE ARMANDOMARIBELL SALEH INSTALLATION & MAINTENANCE EXECUTIVE Ot 790.6 11/04/2015 JULIANN MARSH, ISABEL R Ot 285.9 11/04/2015 JULIANN MARSH, ISABEL R Ot 460 11/04/2015 JOSE ARMANDOMARIBELL SALEH INSTALLATION & MAINTENANCE EXECUTIVE Ot 272.4 11/04/2015 TAIWOMARIBELL INSTALLATION & MAINTENANCE EXECUTIVE Ot 401.9 11/04/2015 JOSE ARMANDOMARIBELL SALEH L INSTALLATION & MAINTENANCE EXECUTIVE Ot 414.00 11/04/2015 JULIANN MARSH, ISABEL R [...] FACC, ALI FACP CCDS Ot I25.10 11/11/2015 [facility] FAC, ALI FACP CCDS Ot I65.23 11/11/2015 [facility], ALI FACP CCDS Ot I73.9 11/11/2015 [facility], ALI FACP CCDS Ot J44.9 11/11/2015 [facility], ALI FACP CCDS Ot N18.9 11/11/2015 [facility], ALI FACP CCDS Ot R00.2 11/11/2015 [facility], ALI FACP CCDS Ot D63.1 11/11/2015 [facility], ALI FACP CCDS Ot E11.9 11/11/2015 [facility], ALI FACP CCDS Ot I25.10 11/11/2015 [facility], ALI FACP CCDS Ot I65.23 11/11/2015 [facility], ALI FACP CCDS Ot I73.9 11/11/2015 [facility], ALI FACP CCDS Ot J43.8 11/11/2015 [facility], ALI FACP CCDS Ot R00.2 11/18/2015 Ot 414.01 11/18/2015 Ot 272.4 11/18/2015 Ot V58.69 11/18/2015 Ot 414.00 11/18/2015 JULIANN MARSH, ISABEL R Ot 300.00 11/18/2015 JULIANN MARSH, ISABEL R Ot 311 11/18/2015 MARIBELL MARAVILLA L INSTALLATION & MAINTENANCE EXECUTIVE Ot 790.6 11/18/2015 JULIANN MARSH, ISABEL R Ot 285.9 11/18/2015 JULIANN MARSH, ISABEL R Ot 460 11/18/2015 MARIBELL MARAVILLA L INSTALLATION & MAINTENANCE EXECUTIVE Ot 272.4 11/18/2015 MARIBELL MARAVILLA L INSTALLATION & MAINTENANCE EXECUTIVE Ot 401.9 11/18/2015 MARIBELL MARAVILLA L INSTALLATION & MAINTENANCE EXECUTIVE Ot 414.00 11/18/2015 JULIANN MARSH, ISABEL R [...] MALVIN K Ot E83.42 11/18/2015 ORA MARSH, MALVNI K Ot F32.9 11/18/2015 ORA MARSH, MALVIN K Ot F41.9 11/18/2015 ORA MARSH, MALVIN K Ot I12.9 11/18/2015 ORA MARSH, MALVIN K Ot I25.10 11/18/2015 ORA MARSH, MALVIN K Ot I65.23 11/18/2015 ORA MARSH, MALVIN K Ot N18.9 11/18/2015 ORA MARSH, MALVIN K Ot Z68.41 11/18/2015 ORA MARSH, MALVIN K Ot Z79.4 11/18/2015 ORA MARSH, MALVIN K Ot Z79.899 11/18/2015 DAVE MARSH [facility], ALI FACP CCDS Ot E11.21 11/18/2015 DAVE MARSH FACC, ALI FACP CCDS Ot I25.10 11/18/2015 DAVE MARSH FAC, ALI FACP CCDS Ot I65.23 11/18/2015 DAVE MARSH FAC, ALI FACP CCDS Ot I73.9 11/18/2015 DAVE MARSH FAC, ALI FACP CCDS Ot J44.9 11/18/2015 DAVE MARSH [facility], ALI FACP CCDS Ot N18.9 11/18/2015 DAVE MARSH [facility], ALI FACP CCDS Ot R00.2 11/18/2015 DAVE MARSH [facility], ALI FACP CCDS Ot D63.1 11/18/2015 DAVE MARSH [facility], ALI FACP CCDS Ot E11.9 11/18/2015 DAVE MD [facility], ALI FACP CCDS Ot I25.10 11/18/2015 DAVE MARSH [facility]ED [facility], ALI FACP CCDS Ot I65.23 11/18/2015 DAVE MARSH [facility], ALI FACP CCDS Ot I73.9 11/18/2015 DAVE MD [facility], ALI FACP CCDS Ot J43.8 11/18/2015 DAVE MARSH [facility], ALI FACP CCDS Ot R00.2 11/18/2015 [...] E11.22 TYPE 2 DIABETES MELLITUS W DIABETIC SPECIAL LIBRARY LIBRARIAN 12/04/2015 MALVIN PAYAN MD Ot E66.01 MORBID [...] Darden Ot I25.10 ATHSCL HEART DISEASE OF [place] CORONARY 12/04/2015 ORA MARSH, MALVIN Darden Ot I65.23 OCCLUSION AND STENOSIS OF BILATERAL [place] 12/04/2015 ORA MARSH, MALVIN Darden Ot N18.9 CHRONIC KIDNEY DISEASE, UNSPECIFIED 12/04/2015 ORA MARSH, MALVIN Darden Ot Z68.41 BODY MASS INDEX (BMI) 40.0-44.9, ADULT 12/04/2015 ORA MARSH, MALVIN Darden Ot Z79.4 USP (CURRENT) USE OF INSULIN 12/04/2015 ORA MARSH, MALVIN Darden Ot Z79.899 OTHER INSPECTOR WEIGHTS AND MEASURES (CURRENT) DRUG THERAPY 12/12/2015 ORA MARSH, MALVIN [...] CCDS Ot I25.10 ATHSCL HEART DISEASE OF [place] CORONARY 12/24/2015 DAVE MARSH FACC, ALI FACP [...] UNSPECIFIED 01/14/2016 Ot 414.01 CORONARY ATHEROSCLEROSIS OF [place] CORON 01/14/2016 Ot 272.4 HYPERLIPIDEMIA NEC/NOS 01/14/2016 Ot V58.69 OTH MED,LT,CURRENT USE 01/14/2016 Ot 414.00 CORON ATHEROSCLER NOS TYPE VESSEL, NATIV 01/14/2016 ISABEL HUMPHREYS MD Ot 300.00 ANXIETY STATE NOS 01/14/2016 ISABEL HUMPHREYS MD Ot 311 DEPRESSIVE DISORDER NEC 01/14/2016 MARIBELL MARAVILLA INSTALLATION & MAINTENANCE EXECUTIVE Ot 790.6 ABN BLOOD CHEMISTRY NEC 01/14/2016 ISABEL HUMPHREYS MD Ot 285.9 ANEMIA NOS 01/14/2016 SEGLIE MD, ISABEL R Ot 460 ACUTE NASOPHARYNGITIS 01/14/2016 JOSE ARMANDOMARIBELL SALEH Dustin INSTALLATION & MAINTENANCE EXECUTIVE Ot 272.4 HYPERLIPIDEMIA NEC/NOS 01/14/2016 MARIBELL MARAVILLA INSTALLATION & MAINTENANCE EXECUTIVE Ot 401.9 HYPERTENSION NOS 01/14/2016 MARIBELL MARAVILLA INSTALLATION & MAINTENANCE EXECUTIVE Ot 414.00 CORON ATHEROSCLER NOS TYPE VESSEL, [...] CCDS Ot I25.10 ATHSCL HEART DISEASE OF [place] CORONARY 01/14/2016 DAVE MARSH FACC, ALI FACP CCDS Ot J43.8 OTHER EMPHYSEMA 01/14/2016 DULCE WILL MD Ot E11.9 TYPE 2 DIABETES MELLITUS WITHOUT COMPLIC 01/14/2016 DULCE WILL MD Ot E66.9 OBESITY, UNSPECIFIED 01/14/2016 DULCE WILL MD Ot I12.9 HYPERTENSIVE CHRONIC KIDNEY DISEASE W ST 01/14/2016 DULCE WILL MD Ot I25.10 ATHSCL HEART DISEASE OF [place] CORONARY 01/14/2016 DULCE WILL MD Ot J44.9 [...] CCDS Ot I25.10 ATHSCL HEART DISEASE OF [place] CORONARY 01/14/2016 DAVE MARSH FACC, ALI FACP [...] CCDS Ot I25.10 ATHSCL HEART DISEASE OF [place] CORONARY 01/14/2016 DAVE MARSH FACC, ALI FACP [...] E11.22 TYPE 2 DIABETES MELLITUS W DIABETIC SPECIAL LIBRARY LIBRARIAN 01/14/2016 MALVIN PAYAN MD Ot E66.01 MORBID (SEVERE) OBESITY DUE TO EXCESS CA 01/14/2016 MALVIN PAYAN MD Ot E83.42 HYPOMAGNESEMIA 01/14/2016 MALVIN PAYAN MD, Ot F32.9 MAJOR DEPRESSIVE DISORDER, SINGLE EPISOD 01/14/2016 MALVIN PAYAN MD Ot F41.9 ANXIETY DISORDER, UNSPECIFIED 01/14/2016 MALVIN PAYAN MD, Ot I12.9 HYPERTENSIVE CHRONIC KIDNEY DISEASE W ST 01/14/2016 MALVIN PAYAN MD, Ot I25.10 ATHSCL HEART DISEASE OF [place] CORONARY 01/14/2016 MALVIN PAYAN MD Ot I65.23 OCCLUSION AND STENOSIS OF BILATERAL [place] 01/14/2016 MALVIN PAYAN MD Ot N18.9 CHRONIC KIDNEY DISEASE, UNSPECIFIED 01/14/2016 MALVIN PAYAN MD Ot Z68.41 BODY MASS INDEX (BMI) 40.0-44.9, ADULT 01/14/2016 MALVIN PAYAN MD Ot Z79.4 INSPECTOR WEIGHTS AND MEASURES (CURRENT) USE OF INSULIN 01/14/2016 MALVIN PAYAN [...] UNSPECIFIED 01/14/2016 Ot 414.01 CORONARY ATHEROSCLEROSIS OF [place] CORON 01/14/2016 Ot 272.4 HYPERLIPIDEMIA NEC/NOS 01/14/2016 Ot V58.69 OTH MED,LT,CURRENT USE 01/14/2016 Ot 414.00 CORON ATHEROSCLER NOS TYPE VESSEL, NATIV 01/14/2016 ISABEL HUMPHREYS MD R Ot 300.00 ANXIETY STATE NOS 01/14/2016 ISABEL HUMPHREYS MD R Ot 311 DEPRESSIVE DISORDER NEC 01/14/2016 MARIBELL MARAVILLA INSTALLATION & MAINTENANCE EXECUTIVE Ot 790.6 ABN BLOOD CHEMISTRY NEC 01/14/2016 ISABEL HUMPHREYS MD R Ot 285.9 ANEMIA NOS 01/14/2016 ISABEL HUMPHREYS MD R Ot 460 ACUTE NASOPHARYNGITIS 01/14/2016 MARIBELL MARAVILLA INSTALLATION & MAINTENANCE EXECUTIVE Ot 272.4 HYPERLIPIDEMIA NEC/NOS 01/14/2016 MARIBELL MARAVILLA L INSTALLATION & MAINTENANCE EXECUTIVE Ot 401.9 HYPERTENSION NOS 01/14/2016 MARIBELL MARAVILLA INSTALLATION & MAINTENANCE EXECUTIVE Ot 414.00 CORON ATHEROSCLER NOS TYPE VESSEL, [...] CCDS Ot I25.10 ATHSCL HEART DISEASE OF [place] CORONARY 01/14/2016 EARL ACOSTA MD, FACC FACP CCDS Ot J43.8 OTHER EMPHYSEMA 01/14/2016 DULCE WILL MD Ot E11.9 TYPE 2 DIABETES MELLITUS WITHOUT COMPLIC 01/14/2016 DULCE WILL MD Ot E66.9 OBESITY, UNSPECIFIED 01/14/2016 NICOLETTE MARSH, DULCE Ot I12.9 HYPERTENSIVE CHRONIC KIDNEY DISEASE W ST 01/14/2016 NICOLETTE MARSH, DULCE Ot I25.10 ATHSCL HEART DISEASE OF [place] CORONARY 01/14/2016 NICOLETTE MARSH, DULCE Ot J44.9 [...] CCDS Ot I25.10 ATHSCL HEART DISEASE OF [place] CORONARY 01/14/2016 DAVE MARSH FACC, EARL FACP [...] CCDS Ot I25.10 ATHSCL HEART DISEASE OF [place] CORONARY 01/14/2016 DAVE MARSH FACC, ALI FACP [...] E11.22 TYPE 2 DIABETES MELLITUS W DIABETIC SPECIAL LIBRARY LIBRARIAN 01/14/2016 MALVIN PAYAN MD Ot E66.01 MORBID (SEVERE) OBESITY DUE TO EXCESS CA 01/14/2016 MALVIN PAYAN MD Ot E83.42 HYPOMAGNESEMIA 01/14/2016 MALVIN PAYAN MD Ot F32.9 MAJOR DEPRESSIVE DISORDER, SINGLE EPISOD 01/14/2016 MALVIN PAYAN MD Ot F41.9 ANXIETY DISORDER, UNSPECIFIED 01/14/2016 MALVIN PAYAN MD Ot I12.9 HYPERTENSIVE CHRONIC KIDNEY DISEASE W ST 01/14/2016 MALVIN PAYAN MD Ot I25.10 ATHSCL HEART DISEASE OF [place] CORONARY 01/14/2016 MALVIN PAYAN MD Ot I65.23 OCCLUSION AND STENOSIS OF BILATERAL [place] 01/14/2016 MALVIN PAYAN MD Ot N18.9 CHRONIC KIDNEY DISEASE, UNSPECIFIED 01/14/2016 MALVIN PAYAN MD Ot Z68.41 BODY MASS INDEX (BMI) 40.0-44.9, ADULT 01/14/2016 MALVIN PAYAN MD Ot Z79.4 INSPECTOR WEIGHTS AND MEASURES (CURRENT) USE OF INSULIN 01/14/2016 MALVIN PAYAN MD, Ot Z79.899 OTHER INSPECTOR WEIGHTS AND MEASURES (CURRENT) DRUG THERAPY 01/14/2016 DULCE WILL MD, [...] R Ot I25.110 ATHSCL HEART DISEASE OF [place] COR ART W 01/17/2016 ISABEL HUMPHREYS MD [...] 01/17/2016 ISABEL HUMPHREYS MD R Ot Z79.4 INSPECTOR WEIGHTS AND MEASURES (CURRENT) USE OF INSULIN 01/17/2016 ISABEL HUMPHREYS [...] MD Ot I25.110 ATHSCL HEART DISEASE OF [place] COR ART W 01/18/2016 ISABEL HUMPHREYS MD [...] MD Ot I25.110 ATHSCL HEART DISEASE OF [place] COR ART W 01/18/2016 ISABEL HUMPHREYS MD, [...] MD Ot I25.110 ATHSCL HEART DISEASE OF [place] COR ART W 01/19/2016 ISABEL HUMPHREYS MD [...] R Ot I25.110 ATHSCL HEART DISEASE OF [place] COR ART W 01/20/2016 ISABEL HUMPHREYS MD [...] (SEVERE) 01/20/2016 ISABEL HUMPHREYS MD Ot Z79.4 INSPECTOR WEIGHTS AND MEASURES (CURRENT) USE OF INSULIN 01/20/2016 ISABEL HUMPHREYS [...] MD Ot I25.110 ATHSCL HEART DISEASE OF [place] COR ART W 01/20/2016 ISABEL HUMPHREYS MD [...] MD Ot I25.10 ATHSCL HEART DISEASE OF [place] CORONARY 01/20/2016 ISABEL HUMPHREYS MD Ot I25.110 ATHSCL HEART DISEASE OF [place] COR ART W 01/20/2016 ISABEL HUMPHREYS MD [...] E11.22 TYPE 2 DIABETES MELLITUS W DIABETIC SPECIAL LIBRARY LIBRARIAN 01/28/2016 MALVIN PAYAN MD, Ot E66.01 MORBID (SEVERE) OBESITY DUE TO EXCESS CA 01/28/2016 MALVIN PAYAN MD, Ot E83.42 HYPOMAGNESEMIA 01/28/2016 MALVIN PAYAN MD, Ot F32.9 MAJOR DEPRESSIVE DISORDER, SINGLE EPISOD 01/28/2016 MALVIN PAYAN MD, Ot F41.9 ANXIETY DISORDER, UNSPECIFIED 01/28/2016 MALVIN PAYAN MD Ot I12.9 HYPERTENSIVE CHRONIC KIDNEY DISEASE W ST 01/28/2016 MALVIN PAYAN MD, Ot I25.10 ATHSCL HEART DISEASE OF [place] CORONARY 01/28/2016 MALVIN PAYAN MD Ot I65.23 OCCLUSION AND STENOSIS OF BILATERAL [place] 01/28/2016 MALVIN PAYAN MD Ot N18.9 CHRONIC KIDNEY DISEASE, UNSPECIFIED 01/28/2016 MALVIN PAYAN MD Ot Z68.41 BODY MASS INDEX (BMI) 40.0-44.9, ADULT 01/28/2016 MALVIN PAYAN MD Ot Z79.4 USP (CURRENT) USE OF INSULIN 01/28/2016 MALVIN PAYAN MD Ot Z79.899 OTHER INSPECTOR WEIGHTS AND MEASURES (CURRENT) DRUG THERAPY 02/25/2016 REJI MA MD, [...] UNSPECIFIED 02/29/2016 GUMARO HEBERT MD, Ot Z79.4 INSPECTOR WEIGHTS AND MEASURES (CURRENT) USE OF INSULIN 02/29/2016 GUMARO HEBERT [...] Z95.5 PRESENCE OF CORONARY ANGIOPLASTY IMPLANT 03/02/2016 GUMAOR HEBERT MD Ot Z99.2 DEPENDENCE ON RENAL [...] UNSPECIFIED 03/06/2016 GUMARO HEBERT MD, Ot Z79.4 INSPECTOR WEIGHTS AND MEASURES (CURRENT) USE OF INSULIN 03/06/2016 GUMARO HEBERT MD Ot Z95.5 PRESENCE OF CORONARY ANGIOPLASTY IMPLANT 03/06/2016 GUMARO HEBERT MD Ot Z99.2 DEPENDENCE ON RENAL DIALYSIS 03/10/2016 MALVIN PAYAN MD Ot D63.1 ANEMIA IN CHRONIC KIDNEY DISEASE 03/10/2016 MALVIN PAYAN MD Ot E03.9 HYPOTHYROIDISM, UNSPECIFIED 03/10/2016 MALVIN PAYAN MD Ot E11.22 TYPE 2 DIABETES MELLITUS W DIABETIC SPECIAL LIBRARY LIBRARIAN 03/10/2016 MALVIN PAYAN MD Ot E66.01 MORBID (SEVERE) OBESITY DUE TO EXCESS CA 03/10/2016 MALVIN PAYAN MD Ot E83.42 HYPOMAGNESEMIA 03/10/2016 MALVIN PAYAN MD Ot F32.9 MAJOR DEPRESSIVE DISORDER, SINGLE EPISOD 03/10/2016 MALVIN PAYAN MD Ot F41.9 ANXIETY DISORDER, UNSPECIFIED 03/10/2016 MALVIN PAYAN MD Ot I12.9 HYPERTENSIVE CHRONIC KIDNEY DISEASE W ST 03/10/2016 MALVIN PAYAN MD Ot I25.10 ATHSCL HEART DISEASE OF [place] CORONARY 03/10/2016 MALVIN PAYAN MD, Ot I65.23 OCCLUSION AND STENOSIS OF [place]ILATERAL [place] 03/10/2016 MALVIN PAYAN MD, Ot N18.9 CHRONIC KIDNEY DISEASE, UNSPECIFIED 03/10/2016 MALVIN PAYAN MD, Ot Z68.41 BODY MASS INDEX (BMI) 40.0-44.9, ADULT 03/10/2016 MALVIN PAYAN MD, Ot Z79.4 USP (CURRENT) USE OF INSULIN 03/10/2016 MALVIN PAYAN MD, Ot Z79.899 OTHER INSPECTOR WEIGHTS AND MEASURES (CURRENT) DRUG THERAPY 03/12/2016 REJI MA MD, [...] E11.22 TYPE 2 DIABETES MELLITUS W DIABETIC SPECIAL LIBRARY LIBRARIAN 03/23/2016 MALVIN PAYAN MD, Ot E66.01 MORBID (SEVERE) OBESITY DUE TO EXCESS CA 03/23/2016 MALVIN PAYAN MD, Ot E83.42 HYPOMAGNESEMIA 03/23/2016 MALVIN PAYAN MD, Ot F32.9 MAJOR DEPRESSIVE DISORDER, SINGLE EPISOD 03/23/2016 MALVIN PAYAN MD, Ot F41.9 ANXIETY DISORDER, UNSPECIFIED 03/23/2016 MALVIN PAYAN MD, Ot I12.9 HYPERTENSIVE CHRONIC KIDNEY DISEASE W ST 03/23/2016 MALVIN PAYAN MD, Ot I25.10 ATHSCL HEART DISEASE OF [place] CORONARY 03/23/2016 MALVIN PAYAN MD, Ot I65.23 [...] E11.22 TYPE 2 DIABETES MELLITUS W DIABETIC SPECIAL LIBRARY LIBRARIAN 03/25/2016 MALVIN PAYAN MD, Ot E66.01 MORBID (SEVERE) OBESITY DUE TO EXCESS CA 03/25/2016 MALVIN PAYAN MD, Ot E83.42 HYPOMAGNESEMIA 03/25/2016 MALVIN PAYAN MD, Ot F32.9 MAJOR DEPRESSIVE DISORDER, SINGLE EPISOD 03/25/2016 MALVIN PAYAN MD, Ot F41.9 ANXIETY DISORDER, UNSPECIFIED 03/25/2016 MALVIN PAYAN MD, Ot I12.9 HYPERTENSIVE CHRONIC KIDNEY DISEASE W ST 03/25/2016 MALVIN PAYAN MD, Ot I25.10 ATHSCL HEART DISEASE OF [place] CORONARY 03/25/2016 MALVIN PAYAN MD Ot I65.23 OCCLUSION AND STENOSIS OF [place]ILATERAL [place] 03/25/2016 MALVIN PAYAN MD, Ot N18.9 CHRONIC KIDNEY DISEASE, UNSPECIFIED 03/25/2016 MALVIN PAYAN MD Ot Z68.41 BODY MASS INDEX (BMI) 40.0-44.9, ADULT 03/25/2016 MALVIN PAYAN MD, Ot Z79.4 INSPECTOR WEIGHTS AND MEASURES (CURRENT) USE OF INSULIN 03/25/2016 MALVIN PAYAN MD, Ot Z79.899 OTHER USP (CURRENT) DRUG THERAPY 04/23/2016 MALVIN PAYAN MD, Ot D63.1 ANEMIA IN CHRONIC KIDNEY DISEASE 04/23/2016 MALVIN PAYAN MD, Ot E03.9 HYPOTHYROIDISM, UNSPECIFIED 04/23/2016 MALVIN PAYAN MD, Ot E11.22 TYPE 2 DIABETES MELLITUS W DIABETIC SPECIAL LIBRARY LIBRARIAN 04/23/2016 MALVIN PAYAN MD, Ot E66.01 MORBID (SEVERE) OBESITY DUE TO EXCESS CA 04/23/2016 MALVIN PAYAN MD, Ot E83.42 HYPOMAGNESEMIA 04/23/2016 MALVIN PAYAN MD, Ot F32.9 MAJOR DEPRESSIVE DISORDER, SINGLE EPISOD 04/23/2016 MALVIN PAYAN MD, Ot F41.9 ANXIETY DISORDER, UNSPECIFIED 04/23/2016 MALVIN PAYAN MD Ot I12.9 HYPERTENSIVE CHRONIC KIDNEY DISEASE W ST 04/23/2016 MALVIN PAYAN MD Ot I25.10 ATHSCL HEART DISEASE OF [place] CORONARY 04/23/2016 MALVIN PAYAN MD, Ot I65.23 [...] K Ot I25.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 [place] COR ART W 05/20/2016 JESSIKA DO ANNE MARIE K Ot I51.7 CARDIOMEGALY 05/20/2016 JESSIKA DO, ANNE MARIE K Ot J44.9 CHRONIC OBSTRUCTIVE PULMONARY DISEASE, U 05/20/2016 JESSIKA DO, ANNE MARIE K Ot N18.6 END STAGE RENAL DISEASE 05/20/2016 JESSIKA DO ANNE MARIE K Ot R07.9 CHEST PAIN, UNSPECIFIED 05/20/2016 JESSIKA DO ANNE MARIE K Ot Z79.4 INSPECTOR WEIGHTS AND MEASURES (CURRENT) USE OF INSULIN 05/20/2016 JESSIKA DO ANNE MARIE K Ot Z79.82 USP (CURRENT) USE OF ASPIRIN 05/20/2016 JESSIKA DO ANNE MARIE K Ot Z79.899 OTHER INSPECTOR WEIGHTS AND MEASURES (CURRENT) DRUG THERAPY 05/20/2016 JESSIKA DO ANNE [...] K Ot I25.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 [place] COR ART W 05/21/2016 JESSIKA ANNE MARIE [...] ANNE MARIE HUMMEL K Ot Z79.899 OTHER INSPECTOR WEIGHTS AND MEASURES (CURRENT) DRUG THERAPY 05/21/2016 ANNE MARIE ROSEN DO K Ot Z95.5 PRESENCE OF CORONARY ANGIOPLASTY IMPLANT 05/21/2016 ANNE MARIE ROSEN DO K Ot Z99.2 DEPENDENCE ON RENAL DIALYSIS 05/27/2016 Ot 414.01 CORONARY ATHEROSCLEROSIS OF [place] CORON 05/27/2016 Ot 272.4 HYPERLIPIDEMIA NEC/NOS 05/27/2016 Ot V58.69 OTH MED,LT,CURRENT USE 05/27/2016 Ot 414.00 CORON ATHEROSCLER NOS TYPE VESSEL, NATIV 05/27/2016 JULIANN MARSH, ISABEL R Ot 300.00 ANXIETY STATE NOS 05/27/2016 ISABEL HUMPHREYS MD Ot 311 DEPRESSIVE DISORDER NEC 05/27/2016 MARIBELL MARAVILLA INSTALLATION & MAINTENANCE EXECUTIVE Ot 790.6 ABN BLOOD CHEMISTRY NEC 05/27/2016 JULIANN MARSH, ISABEL R Ot 285.9 ANEMIA NOS 05/27/2016 JULIANN MARSH, ISABEL R Ot 460 ACUTE NASOPHARYNGITIS 05/27/2016 MARIBELL MARAVILLA INSTALLATION & MAINTENANCE EXECUTIVE Ot 272.4 HYPERLIPIDEMIA NEC/NOS 05/27/2016 MARIBELL MARAVILLA INSTALLATION & MAINTENANCE EXECUTIVE Ot 401.9 HYPERTENSION NOS 05/27/2016 MARIBELL MARAVILLA INSTALLATION & MAINTENANCE EXECUTIVE Ot 414.00 CORON ATHEROSCLER NOS TYPE VESSEL, [...] CCDS Ot I25.10 ATHSCL HEART DISEASE OF [place] CORONARY 05/27/2016 DAVE MARSH FAC, ALI FACP CCDS Ot J43.8 OTHER EMPHYSEMA 05/27/2016 NICOLETTE MARSH, DULCE Ot E11.9 TYPE 2 DIABETES MELLITUS WITHOUT COMPLIC 05/27/2016 NICOLETTE MARSH, DULCE Ot E66.9 OBESITY, UNSPECIFIED 05/27/2016 NICOLETTE MARSH, DULCE Ot I12.9 HYPERTENSIVE CHRONIC KIDNEY DISEASE W ST 05/27/2016 NICOLETTE MARSH, DULCE Ot I25.10 ATHSCL HEART DISEASE OF [place] CORONARY 05/27/2016 NICOLETTE MARSH, DULCE Ot J44.9 [...] CCDS Ot I25.10 ATHSCL HEART DISEASE OF [place] CORONARY 05/27/2016 DAVE CHAVEZC, ALI FACP CCDS [...] DIABETES MELLITUS WITHOUT COMPLIC 05/27/2016 [facility] FACP CCDS Ot I25.10 ATHSCL HEART DISEASE OF [place] CORONARY 05/27/2016 DAVE CHAVEZ, ALI FACP CCDS [...] E11.22 TYPE 2 DIABETES MELLITUS W DIABETIC SPECIAL LIBRARY LIBRARIAN 05/27/2016 MAVLIN PAYAN MD, Ot E66.01 MORBID (SEVERE) OBESITY DUE TO EXCESS CA 05/27/2016 MALVIN PAYAN MD, Ot E83.42 HYPOMAGNESEMIA 05/27/2016 MALVIN PAYAN MD, Ot F32.9 MAJOR DEPRESSIVE DISORDER, SINGLE EPISOD 05/27/2016 MALVIN PAYAN MD, Ot F41.9 ANXIETY DISORDER, UNSPECIFIED 05/27/2016 MALVIN PAYAN MD, Ot I12.9 HYPERTENSIVE CHRONIC KIDNEY DISEASE W ST 05/27/2016 MALVIN PAYAN MD, Ot I25.10 ATHSCL HEART DISEASE OF [place] CORONARY 05/27/2016 MALVIN PAYAN MD, Ot I65.23 OCCLUSION AND STENOSIS OF BILATERAL [place] 05/27/2016 MALVIN PAYAN MD, Ot N18.9 CHRONIC KIDNEY DISEASE, UNSPECIFIED 05/27/2016 MALVIN PAYAN MD, Ot Z68.41 BODY MASS INDEX (BMI) 40.0-44.9, ADULT 05/27/2016 MALVIN PAYAN MD Ot Z79.4 USP (CURRENT) USE OF INSULIN 05/27/2016 MALVIN PAYAN MD, Ot Z79.899 OTHER INSPECTOR WEIGHTS AND MEASURES (CURRENT) DRUG THERAPY 05/28/2016 MARIBELL MARAVILLA INSTALLATION & MAINTENANCE EXECUTIVE Ot 272.4 HYPERLIPIDEMIA NEC/NOS 05/28/2016 MARIBELL MARAVILLA INSTALLATION & MAINTENANCE EXECUTIVE Ot 401.9 HYPERTENSION NOS 05/28/2016 MARIBELL MARAVILLA Ot 414.00 CORON ATHEROSCLER NOS TYPE VESSEL, NATIV 06/15/2016 MALVIN PAYAN MD Ot D63.1 ANEMIA IN CHRONIC KIDNEY DISEASE 06/15/2016 MALVIN PAYAN MD Ot E03.9 HYPOTHYROIDISM, UNSPECIFIED 06/15/2016 MALVIN PAYAN MD Ot E11.22 TYPE 2 DIABETES MELLITUS W DIABETIC SPECIAL LIBRARY LIBRARIAN 06/15/2016 MALVIN PAYAN MD Ot E66.01 MORBID (SEVERE) OBESITY DUE TO EXCESS CA 06/15/2016 MALVIN PAYAN MD, Ot E83.42 HYPOMAGNESEMIA 06/15/2016 MALVIN PAYAN MD, Ot F32.9 MAJOR DEPRESSIVE DISORDER, SINGLE EPISOD 06/15/2016 MALVIN PAYAN MD, Ot F41.9 ANXIETY DISORDER, UNSPECIFIED 06/15/2016 MALVIN PAYAN MD Ot I12.9 HYPERTENSIVE CHRONIC KIDNEY DISEASE W ST 06/15/2016 MALVIN PAYAN MD Ot I25.10 ATHSCL HEART DISEASE OF [place] CORONARY 06/15/2016 MALVIN PAYAN MD Ot I65.23 OCCLUSION AND STENOSIS OF BILATERAL [place] 06/15/2016 MALVIN PAYAN MD Ot N18.9 CHRONIC KIDNEY DISEASE, UNSPECIFIED 06/15/2016 MALVIN PAYAN MD Ot Z68.41 BODY MASS INDEX (BMI) 40.0-44.9, ADULT 06/15/2016 MALVIN PAYAN MD Ot Z79.4 USP (CURRENT) USE OF INSULIN 06/15/2016 MALVIN PAYAN MD, Ot Z79.899 OTHER USP (CURRENT) DRUG THERAPY 07/01/2016 MALVIN PAYAN MD Ot D63.1 ANEMIA IN CHRONIC KIDNEY DISEASE 07/01/2016 MALVIN PAYAN MD Ot E03.9 HYPOTHYROIDISM, UNSPECIFIED 07/01/2016 MALVIN PAYAN MD Ot E11.22 TYPE 2 DIABETES MELLITUS W DIABETIC SPECIAL LIBRARY LIBRARIAN 07/01/2016 MALVIN PAYAN MD Ot E66.01 MORBID (SEVERE) OBESITY DUE TO EXCESS CA 07/01/2016 MALVIN PAYAN MD Ot E83.42 HYPOMAGNESEMIA 07/01/2016 MALVIN PAYAN MD Ot F32.9 MAJOR DEPRESSIVE DISORDER, SINGLE EPISOD 07/01/2016 MALVIN PAYAN MD Ot F41.9 ANXIETY DISORDER, UNSPECIFIED 07/01/2016 MALVIN PAYAN MD Ot I12.9 HYPERTENSIVE CHRONIC KIDNEY DISEASE W ST 07/01/2016 MALVIN PAYAN MD, Ot I25.10 ATHSCL HEART DISEASE OF [place] CORONARY 07/01/2016 MALVIN PAYAN MD, Ot I65.23 OCCLUSION AND STENOSIS OF BILATERAL [place] 07/01/2016 MALVIN PAYAN MD, Ot N18.9 CHRONIC KIDNEY DISEASE, UNSPECIFIED 07/01/2016 MALVIN PAYAN MD, Ot Z68.41 BODY MASS INDEX (BMI) 40.0-44.9, ADULT 07/01/2016 MALVIN PAYAN MD, Ot Z79.4 USP (CURRENT) USE OF INSULIN 07/01/2016 MALVIN PAYAN MD, Ot Z79.899 OTHER INSPECTOR WEIGHTS AND MEASURES (CURRENT) DRUG THERAPY 07/22/2016 MALVIN PAYAN MD, Ot D63.1 ANEMIA IN CHRONIC KIDNEY DISEASE 07/22/2016 MALVIN PAYAN MD, Ot E03.9 HYPOTHYROIDISM, UNSPECIFIED 07/22/2016 MALVIN PAYAN MD, Ot E11.22 TYPE 2 DIABETES MELLITUS W DIABETIC SPECIAL LIBRARY LIBRARIAN 07/22/2016 MALVIN PAYAN MD, Ot E66.01 MORBID (SEVERE) OBESITY DUE TO EXCESS CA 07/22/2016 MALVIN PAYAN MD, Ot E83.42 HYPOMAGNESEMIA 07/22/2016 MALVIN PAYAN MD, Ot F32.9 MAJOR DEPRESSIVE DISORDER, SINGLE EPISOD 07/22/2016 MALVIN PAYAN MD, Ot F41.9 ANXIETY DISORDER, UNSPECIFIED 07/22/2016 MALVIN PAYAN MD, Ot I12.9 HYPERTENSIVE CHRONIC KIDNEY DISEASE W ST 07/22/2016 MALVIN PAYAN MD, Ot I25.10 ATHSCL HEART DISEASE OF [place] CORONARY 07/22/2016 MALVIN PAYAN MD, Ot I65.23 [...] 07/22/2016 MALVIN PAYAN MD, Ot Z79.899 OTHER INSPECTOR WEIGHTS AND MEASURES (CURRENT) DRUG THERAPY 07/23/2016 Ot 272.4 HYPERLIPIDEMIA NEC/NOS 07/23/2016 Ot V58.69 OTH MED,LT,CURRENT USE 07/23/2016 Ot 414.00 CORON ATHEROSCLER NOS TYPE VESSEL, NATIV 07/23/2016 JULIANN MARSH, ISABEL R Ot 300.00 ANXIETY STATE NOS 07/23/2016 JULIANN MARSH ISABEL R Ot 311 DEPRESSIVE DISORDER NEC 07/23/2016 MARIBELL MARAVILLA INSTALLATION & MAINTENANCE EXECUTIVE Ot 790.6 ABN BLOOD CHEMISTRY NEC 07/23/2016 JONI HUMPHREYS MDYD R Ot 285.9 ANEMIA NOS 07/23/2016 JULIANN MARSH ISABEL R Ot 460 ACUTE NASOPHARYNGITIS 07/23/2016 MARIBELL MARAVILLA L INSTALLATION & MAINTENANCE EXECUTIVE Ot 272.4 HYPERLIPIDEMIA NEC/NOS 07/23/2016 TAIWO MARIBELL L INSTALLATION & MAINTENANCE EXECUTIVE Ot 401.9 HYPERTENSION NOS 07/23/2016 LEONIDES MARAVILLAHER L INSTALLATION & MAINTENANCE EXECUTIVE Ot 414.00 CORON ATHEROSCLER NOS TYPE VESSEL, [...] CCDS Ot I25.10 ATHSCL HEART DISEASE OF [place] CORONARY 07/23/2016 DAVE MARSH FACC, ALI FACP CCDS Ot J43.8 OTHER EMPHYSEMA 07/23/2016 DULCE WILL MD Ot E11.9 TYPE 2 DIABETES MELLITUS WITHOUT COMPLIC 07/23/2016 NICOLETTE MD, DULCE Ot E66.9 OBESITY, UNSPECIFIED 07/23/2016 NICOLETTE MARSH, DULCE Ot I12.9 HYPERTENSIVE CHRONIC KIDNEY DISEASE W ST 07/23/2016 NICOLETTE MARSH, DULCE Ot I25.10 ATHSCL HEART DISEASE OF [place] CORONARY 07/23/2016 NICOLETTE MARSH, DULCE Ot J44.9 CHRONIC OBSTRUCTIVE PULMONARY DISEASE, U 07/23/2016 NICOLETTE MARSH, DUCLE Ot N18.3 CHRONIC KIDNEY DISEASE, STAGE 3 [...] CCDS Ot I25.10 ATHSCL HEART DISEASE OF [place] CORONARY 07/23/2016 DAVE MARSH FACC, ALI FACP [...] CCDS Ot I25.10 ATHSCL HEART DISEASE OF [place] CORONARY 07/23/2016 DAVE MARSH FACC, ALI FACP [...] E11.22 TYPE 2 DIABETES MELLITUS W DIABETIC SPECIAL LIBRARY LIBRARIAN 07/23/2016 ORA MARSH, MALVIN Darden Ot E66.01 MORBID (SEVERE) OBESITY DUE TO EXCESS CA 07/23/2016 MALVIN PAYAN MD Ot E83.42 HYPOMAGNESEMIA 07/23/2016 MALVIN PAYAN MD Ot F32.9 MAJOR DEPRESSIVE DISORDER, SINGLE EPISOD 07/23/2016 MALVIN PAYAN MD Ot F41.9 ANXIETY DISORDER, UNSPECIFIED 07/23/2016 MALVIN PAYAN MD Ot I12.9 HYPERTENSIVE CHRONIC KIDNEY DISEASE W ST 07/23/2016 MALVIN PAYAN MD Ot I25.10 ATHSCL HEART DISEASE OF [place] CORONARY 07/23/2016 MALVIN PAYAN MD, Ot I65.23 [...] MD Ot I25.10 ATHSCL HEART DISEASE OF [place] CORONARY 08/14/2016 VERNON COLLIER MD, Ot J44.9 CHRONIC OBSTRUCTIVE PULMONARY DISEASE , U 08/14/2016 VERNON COLLIER MD, Ot N18.6 END STAGE RENAL DISEASE 08/14/2016 VERNON COLLIER MD Ot R06.02 SHORTNESS OF BREATH 08/14/2016 VERNON COLLIER MD Ot R07.9 CHEST PAIN, UNSPECIFIED 08/14/2016 VERNON COLLIER MD, Ot Z79.02 INSPECTOR WEIGHTS AND MEASURES (CURRENT) USE OF ANTITHROMBOTI 08/14/2016 VERNON COLLIER [...] MD Ot I25.10 ATHSCL HEART DISEASE OF [place] CORONARY 08/14/2016 VERNON COLLIER MD Ot J44.9 CHRONIC OBSTRUCTIVE PULMONARY DISEASE , U 08/14/2016 VERNON COLLIER MD, Ot N18.6 END STAGE RENAL DISEASE 08/14/2016 VERNON COLLIER MD Ot R06.02 SHORTNESS OF BREATH 08/14/2016 VERNON COLLIER MD Ot R07.9 CHEST PAIN, UNSPECIFIED 08/14/2016 VERNON COLLIER MD Ot Z79.02 INSPECTOR WEIGHTS AND MEASURES (CURRENT) USE OF ANTITHROMBOTI 08/14/2016 VERNON COLLIER MD Ot Z79.4 USP (CURRENT) USE OF INSULIN 08/14/2016 VERNON COLLIER MD, Ot Z79.82 USP (CURRENT) USE OF ASPIRIN 08/14/2016 VERNON COLLIER MD Ot Z79.899 OTHER INSPECTOR WEIGHTS AND MEASURES (CURRENT) DRUG THERAPY 08/14/2016 VERNON COLLIER MD, Ot Z95.5 PRESENCE OF CORONARY ANGIOPLASTY IMPLANT 08/14/2016 VERNON COLILER MD, Ot Z98.890 OTHER SPECIFIED POSTPROCEDURAL STATES [...] MD Ot I25.10 ATHSCL HEART DISEASE OF [place] CORONARY 08/18/2016 VERNON COLLIER MD, Ot J44.9 [...] INSULIN 08/18/2016 VERNON COLLIER MD, Ot Z79.82 INSPECTOR WEIGHTS AND MEASURES (CURRENT) USE OF ASPIRIN 08/18/2016 VERNON COLLIER MD, Ot Z79.899 OTHER INSPECTOR WEIGHTS AND MEASURES (CURRENT) DRUG THERAPY 08/18/2016 VERNON COLLIER MD [...] PAIN 08/24/2016 VERNON COLLIER MD Ot Z79.4 INSPECTOR WEIGHTS AND MEASURES (CURRENT) USE OF INSULIN 08/24/2016 VERNON COLLIER MD Ot Z79.82 INSPECTOR WEIGHTS AND MEASURES (CURRENT) USE OF ASPIRIN 08/24/2016 VERNON COLLIER MD Ot Z79.899 OTHER INSPECTOR WEIGHTS AND MEASURES (CURRENT) DRUG THERAPY 08/25/2016 VERNON COLLIER MD [...] PAIN 08/25/2016 VERNON COLLIER MD Ot Z79.4 INSPECTOR WEIGHTS AND MEASURES (CURRENT) USE OF INSULIN 08/25/2016 VERNON COLLIER [...] K Ot I25.10 ATHSCL HEART DISEASE OF [place] CORONARY 09/23/2016 JESSIKA DO, ANNE MARIE K [...] JESSIKA DO, ANNE MARIE K Ot Z79.4 INSPECTOR WEIGHTS AND MEASURES (CURRENT) USE OF INSULIN 09/23/2016 JESSIKA DO, ANNE MARIE K Ot Z79.82 INSPECTOR WEIGHTS AND MEASURES (CURRENT) USE OF ASPIRIN 09/23/2016 JESSIKA DO, ANNE MARIE K Ot Z79.899 OTHER INSPECTOR WEIGHTS AND MEASURES (CURRENT) DRUG THERAPY 09/23/2016 JESSIKA DO, ANNE MARIE K Ot Z95.5 PRESENCE OF CORONARY ANGIOPLASTY IMPLANT 09/23/2016 JESSIKA DO, ANNE MARIE K Ot Z99.81 DEPENDENCE ON SUPPLEMENTAL OXYGEN 09/28/2016 MALVIN PAYAN MD Ot D63.1 ANEMIA IN CHRONIC KIDNEY DISEASE 09/28/2016 MALVIN PAYAN MD, Ot E03.9 HYPOTHYROIDISM, UNSPECIFIED 09/28/2016 MALVIN PAYAN MD Ot E11.22 TYPE 2 DIABETES MELLITUS W DIABETIC SPECIAL LIBRARY LIBRARIAN 09/28/2016 MALVIN PAYAN MD Ot E66.01 MORBID (SEVERE) OBESITY DUE TO EXCESS CA 09/28/2016 ORA MD, MALVIN K Ot E83.42 HYPOMAGNESEMIA 09/28/2016 MALVIN PAYAN MD Ot F32.9 MAJOR DEPRESSIVE DISORDER, SINGLE EPISOD 09/28/2016 MALVIN PAYAN MD, Ot F41.9 ANXIETY DISORDER, UNSPECIFIED 09/28/2016 MALVIN PAYAN MD, Ot I12.9 HYPERTENSIVE CHRONIC KIDNEY DISEASE W ST 09/28/2016 MALVIN PAYAN MD Ot I25.10 ATHSCL HEART DISEASE OF [place] CORONARY 09/28/2016 MALVIN PAYAN MD Ot I65.23 [...] K Ot I25.10 ATHSCL HEART DISEASE OF [place] CORONARY 10/01/2016 JESSIKA HUMMEL ANNE MARIE K [...] 10/01/2016 GEORGE ROSEN DOA K Ot Z79.02 INSPECTOR WEIGHTS AND MEASURES (CURRENT) USE OF ANTITHROMBOTI 10/01/2016 GEORGE ROSEN DOA Adelso Ot Z79.4 INSPECTOR WEIGHTS AND MEASURES (CURRENT) USE OF INSULIN 10/01/2016 ANNE MARIE [...] E11.22 TYPE 2 DIABETES MELLITUS W DIABETIC SPECIAL LIBRARY LIBRARIAN 10/05/2016 MALVIN PAYAN MD, Ot E66.01 MORBID (SEVERE) OBESITY DUE TO EXCESS CA 10/05/2016 MALVIN PAYAN MD, Ot E83.42 HYPOMAGNESEMIA 10/05/2016 MALVIN PAYAN MD, Ot F32.9 MAJOR DEPRESSIVE DISORDER, SINGLE EPISOD 10/05/2016 MALVIN PAYAN MD, Ot F41.9 ANXIETY DISORDER, UNSPECIFIED 10/05/2016 MALVIN PAYAN MD, Ot I12.9 HYPERTENSIVE CHRONIC KIDNEY DISEASE W ST 10/05/2016 MALVIN PAYAN MD, Ot I25.10 ATHSCL HEART DISEASE OF [place] CORONARY 10/05/2016 MALVIN PAYAN MD, Ot I65.23 [...] 10/05/2016 MALVIN PAYAN MD, Ot Z79.899 OTHER INSPECTOR WEIGHTS AND MEASURES (CURRENT) DRUG THERAPY 10/08/2016 MALVIN PAYAN MD, Ot D63.1 ANEMIA IN CHRONIC KIDNEY DISEASE 10/08/2016 MALVIN PAYAN MD, Ot E03.9 HYPOTHYROIDISM, UNSPECIFIED 10/08/2016 MALVIN PAYAN MD, Ot E11.22 TYPE 2 DIABETES MELLITUS W DIABETIC SPECIAL LIBRARY LIBRARIAN 10/08/2016 MALVIN PAYAN MD, Ot E66.01 MORBID (SEVERE) OBESITY DUE TO EXCESS CA 10/08/2016 MALVIN PAYAN MD Ot E83.42 HYPOMAGNESEMIA 10/08/2016 MALVIN PAYAN MD, Ot F32.9 MAJOR DEPRESSIVE DISORDER, SINGLE EPISOD 10/08/2016 MALVIN PAYAN MD, Ot F41.9 ANXIETY DISORDER, UNSPECIFIED 10/08/2016 MALVIN PAYAN MD Ot I12.9 HYPERTENSIVE CHRONIC KIDNEY DISEASE W ST 10/08/2016 MALVIN PAYAN MD, Ot I25.10 ATHSCL HEART DISEASE OF [place] CORONARY 10/08/2016 MALVIN PAYAN MD, Ot I65.23 OCCLUSION AND STENOSIS OF BILATERAL [place] 10/08/2016 MALVIN PAYAN MD, Ot N18.9 CHRONIC KIDNEY DISEASE, UNSPECIFIED 10/08/2016 MALVIN PAYAN MD, Ot Z45.2 ENCOUNTER FOR ADJUSTMENT AND MANAGEMENT 10/08/2016 MALVIN PAYAN MD, Ot Z68.41 BODY MASS INDEX (BMI) 40.0-44.9, ADULT 10/08/2016 MALVIN PAYAN MD, Ot Z79.4 INSPECTOR WEIGHTS AND MEASURES (CURRENT) USE OF INSULIN 10/08/2016 MALVIN PAYAN MD, Ot Z79.899 OTHER INSPECTOR WEIGHTS AND MEASURES (CURRENT) DRUG THERAPY 10/10/2016 GUMARO HEBERT MD Ot E11.9 TYPE 2 DIABETES MELLITUS WITHOUT COMPLIC 10/10/2016 GUMARO HEBERT MD, Ot I12.0 HYP CHR KIDNEY DISEASE W STAGE 5 CHR KID 10/10/2016 GUMARO HEBERT MD, Ot I25.10 ATHSCL HEART DISEASE OF [place] CORONARY 10/10/2016 GUMARO HEBERT MD, Ot I51.7 CARDIOMEGALY 10/10/2016 GUMARO HEBERT MD Ot N18.6 END STAGE RENAL DISEASE 10/10/2016 GUMARO HEBERT MD Ot R07.9 CHEST PAIN, UNSPECIFIED 10/10/2016 GUMARO HEBERT MD, Ot Z79.02 USP (CURRENT) USE OF ANTITHROMBOTI 10/10/2016 GUMARO HEBERT MD Ot Z79.4 USP (CURRENT) USE OF INSULIN 10/10/2016 GUMARO HEBERT MD, Ot Z79.899 OTHER INSPECTOR WEIGHTS AND MEASURES (CURRENT) DRUG THERAPY 10/10/2016 GUMARO HEBERT MD, Ot Z95.5 PRESENCE OF CORONARY ANGIOPLASTY IMPLANT 10/11/2016 GUMARO HEBERT MD Ot E11.9 TYPE 2 DIABETES MELLITUS WITHOUT COMPLIC 10/11/2016 GUMARO HEBERT MD, Ot I12.0 HYP CHR KIDNEY DISEASE W STAGE 5 CHR KID 10/11/2016 GUMARO HEBERT MD, Ot I25.10 ATHSCL HEART DISEASE OF [place] CORONARY 10/11/2016 GUMARO HEBERT MD, Ot I51.7 CARDIOMEGALY 10/11/2016 GUMARO HEBERT MD, Ot N18.6 END STAGE RENAL DISEASE 10/11/2016 GUMARO HEBERT MD, Ot R07.9 CHEST PAIN, UNSPECIFIED 10/11/2016 GUMARO HEBERT MD, Ot Z79.02 INSPECTOR WEIGHTS AND MEASURES (CURRENT) USE OF ANTITHROMBOTI 10/11/2016 GUMARO HEBERT [...] E11.22 TYPE 2 DIABETES MELLITUS W DIABETIC SPECIAL LIBRARY LIBRARIAN 11/18/2016 MALVIN PAYAN MD Ot E66.01 MORBID (SEVERE) OBESITY DUE TO EXCESS CA 11/18/2016 MALVIN PAYAN MD Ot E83.42 HYPOMAGNESEMIA 11/18/2016 MALVIN PAYAN MD Ot F32.9 MAJOR DEPRESSIVE DISORDER, SINGLE EPISOD 11/18/2016 MALVIN PAYAN MD Ot F41.9 ANXIETY DISORDER, UNSPECIFIED 11/18/2016 MALVIN PAYAN MD Ot I12.9 HYPERTENSIVE CHRONIC KIDNEY DISEASE W ST 11/18/2016 MALVIN PAYAN MD Ot I25.10 ATHSCL HEART DISEASE OF [place] CORONARY 11/18/2016 MLAVIN PAYAN MD Ot I65.23 OCCLUSION AND STENOSIS OF BILATERAL [place] 11/18/2016 MALVIN PAYAN MD Ot N18.9 CHRONIC KIDNEY DISEASE, UNSPECIFIED 11/18/2016 MALVIN PAYAN MD, Ot Z68.41 BODY MASS INDEX (BMI) 40.0-44.9, ADULT 11/18/2016 MALVIN PAYAN MD Ot Z79.4 INSPECTOR WEIGHTS AND MEASURES (CURRENT) USE OF INSULIN 11/18/2016 MALVIN PAYAN MD Ot Z79.899 OTHER INSPECTOR WEIGHTS AND MEASURES (CURRENT) DRUG THERAPY 12/18/2016 Ot 414.00 CORON ATHEROSCLER NOS TYPE VESSEL, NATIV 12/18/2016 ISABEL HUMPHREYS MD Ot 300.00 ANXIETY STATE NOS 12/18/2016 ISABEL HUMPHREYS MD R Ot 311 DEPRESSIVE DISORDER NEC 12/18/2016 MARIBELL MARAVILLA INSTALLATION & MAINTENANCE EXECUTIVE Ot 790.6 ABN BLOOD CHEMISTRY NEC 12/18/2016 ISABEL HUMPHREYS MD Ot 285.9 ANEMIA NOS 12/18/2016 ISABEL HUMPHREYS MD R Ot 460 ACUTE NASOPHARYNGITIS 12/18/2016 MARIBELL MARAVILLA L INSTALLATION & MAINTENANCE EXECUTIVE Ot 272.4 HYPERLIPIDEMIA NEC/NOS 12/18/2016 MARIBELL MARAVILLA L INSTALLATION & MAINTENANCE EXECUTIVE Ot 401.9 HYPERTENSION NOS 12/18/2016 MARIBELL MARAVILLA L INSTALLATION & MAINTENANCE EXECUTIVE Ot 414.00 CORON ATHEROSCLER NOS TYPE VESSEL, [...] CCDS Ot I25.10 ATHSCL HEART DISEASE OF [place] CORONARY 12/18/2016 DAVE MARSH FACC, ALI FACP CCDS Ot J43.8 OTHER EMPHYSEMA 12/18/2016 NICOLETTE MARSH, DULCE Ot E11.9 TYPE 2 DIABETES MELLITUS WITHOUT COMPLIC 12/18/2016 NICOLETTE MARSH, DULCE Ot E66.9 OBESITY, UNSPECIFIED 12/18/2016 NICOLETTE MARSH, DULCE Ot I12.9 HYPERTENSIVE CHRONIC KIDNEY DISEASE W ST 12/18/2016 NICOLETTE MARSH DULCE Ot I25.10 ATHSCL HEART DISEASE OF [place] CORONARY 12/18/2016 NICOLETTE MARSH DULCE Ot J44.9 [...] CCDS Ot I25.10 ATHSCL HEART DISEASE OF [place] CORONARY 12/18/2016 DAVE MARSH FACC, ALI FACP [...] CCDS Ot I25.10 ATHSCL HEART DISEASE OF [place] CORONARY 12/18/2016 DAVE MARSH MERGED WITH [facility], ALI FACP CCDS Ot I65.23 OCCLUSION AND [...] E11.22 TYPE 2 DIABETES MELLITUS W DIABETIC SPECIAL LIBRARY LIBRARIAN 12/18/2016 MALVIN PAYAN MD Ot E66.01 MORBID (SEVERE) OBESITY DUE TO EXCESS CA 12/18/2016 MALVIN PAYAN MD Ot E83.42 HYPOMAGNESEMIA 12/18/2016 MALVIN PAYAN MD Ot F32.9 MAJOR DEPRESSIVE DISORDER, SINGLE EPISOD 12/18/2016 MALVIN PAYAN MD Ot F41.9 ANXIETY DISORDER, UNSPECIFIED 12/18/2016 MALVIN PAYAN MD Ot I12.9 HYPERTENSIVE CHRONIC KIDNEY DISEASE W ST 12/18/2016 MALVIN PAYAN MD Ot I25.10 ATHSCL HEART DISEASE OF [place] CORONARY 12/18/2016 MALVIN PAYAN MD Ot I65.23 OCCLUSION AND STENOSIS OF BILATERAL [place] 12/18/2016 MALVIN PAYAN MD Ot N18.9 CHRONIC KIDNEY DISEASE, UNSPECIFIED 12/18/2016 MALVIN PAYAN MD Ot Z68.41 BODY MASS INDEX (BMI) 40.0-44.9, ADULT 12/18/2016 MALVIN PAYAN MD, Ot Z79.4 INSPECTOR WEIGHTS AND MEASURES (CURRENT) USE OF INSULIN 12/18/2016 MALVIN PAYAN MD, Ot Z79.899 OTHER INSPECTOR WEIGHTS AND MEASURES (CURRENT) DRUG THERAPY 12/18/2016 Ot 414.00 CORON ATHEROSCLER NOS TYPE VESSEL, NATIV 12/18/2016 ISABEL HUMPHREYS MD R Ot 300.00 ANXIETY STATE NOS 12/18/2016 ISABEL HUMPHREYS MD Ot 311 DEPRESSIVE DISORDER NEC 12/18/2016 MARIBELL MARAVILLA INSTALLATION & MAINTENANCE EXECUTIVE Ot 790.6 ABN BLOOD CHEMISTRY NEC 12/18/2016 ISABEL HUMPHREYS MD R Ot 285.9 ANEMIA NOS 12/18/2016 ISABEL HUMPHREYS MD R Ot 460 ACUTE NASOPHARYNGITIS 12/18/2016 MARIBELL MARAVILLA INSTALLATION & MAINTENANCE EXECUTIVE Ot 272.4 HYPERLIPIDEMIA NEC/NOS 12/18/2016 MARIBELL MARAVILLA INSTALLATION & MAINTENANCE EXECUTIVE Ot 401.9 HYPERTENSION NOS 12/18/2016 MARIBELL MARAVILLA INSTALLATION & MAINTENANCE EXECUTIVE Ot 414.00 CORON ATHEROSCLER NOS TYPE VESSEL, [...] CCDS Ot I25.10 ATHSCL HEART DISEASE OF [place] CORONARY 12/18/2016 DAVE MARSH FACC, EARL FACP CCDS Ot J43.8 OTHER EMPHYSEMA 12/18/2016 NICOLETTE MARSH, DULCE Ot E11.9 TYPE 2 DIABETES MELLITUS WITHOUT COMPLIC 12/18/2016 NICOLETTE MARSH, DULCE Ot E66.9 OBESITY, UNSPECIFIED 12/18/2016 NICOLETTE MARSH DULCE Ot I12.9 HYPERTENSIVE CHRONIC KIDNEY DISEASE W ST 12/18/2016 NICOLETTE MARSH, DULCE Ot I25.10 ATHSCL HEART DISEASE OF [place] CORONARY 12/18/2016 NICOLETTE MARSH DULCE Ot J44.9 CHRONIC OBSTRUCTIVE PULMONARY DISEASE, U 12/18/2016 NICOLETTE MARSH, DULCE Ot N18.3 CHRONIC KIDNEY DISEASE, STAGE 3 (MODERAT 12/18/2016 NICOLETTE MARSH, DULCE Ot 403.90 HYPTNSV CHR KID DIS, UNSPEC, W CHR KD ST 12/18/2016 NICOLETTE MARSH, DULCE Ot 585.3 CHRONIC KIDNEY DISEASE, STAGE III (MODER 12/18/2016 DAVE AMRSH FACC, EARL FACP CCDS Ot E11.21 TYPE 2 DIABETES MELLITUS WITH DIABETIC N 12/18/2016 DAVE MARSH FACC, EARL FACP CCDS Ot I25.10 ATHSCL HEART DISEASE OF [place] CORONARY 12/18/2016 DAVE MARSH FACC, ALI FACP [...] CCDS Ot I25.10 ATHSCL HEART DISEASE OF [place] CORONARY 12/18/2016 DAVE CHAVEZ, ALI FACP CCDS [...] E11.22 TYPE 2 DIABETES MELLITUS W DIABETIC SPECIAL LIBRARY LIBRARIAN 12/18/2016 MALVIN PAYAN MD Ot E66.01 MORBID (SEVERE) OBESITY DUE TO EXCESS CA 12/18/2016 MALVIN PAYAN MD Ot E83.42 HYPOMAGNESEMIA 12/18/2016 MALVIN PAYAN MD, Ot F32.9 MAJOR DEPRESSIVE DISORDER, SINGLE EPISOD 12/18/2016 MALVIN PAYAN MD, Ot F41.9 ANXIETY DISORDER, UNSPECIFIED 12/18/2016 MALVIN PAYAN MD Ot I12.9 HYPERTENSIVE CHRONIC KIDNEY DISEASE W ST 12/18/2016 MALVIN PAYAN MD Ot I25.10 ATHSCL HEART DISEASE OF [place] CORONARY 12/18/2016 MALVIN PAYAN MD Ot I65.23 OCCLUSION AND STENOSIS OF BILATERAL [place] 12/18/2016 MALVIN PAYAN MD Ot N18.9 CHRONIC KIDNEY DISEASE, UNSPECIFIED 12/18/2016 MALVIN PAYAN MD Ot Z68.41 BODY MASS INDEX (BMI) 40.0-44.9, ADULT 12/18/2016 MALVIN PAYAN MD Ot Z79.4 INSPECTOR WEIGHTS AND MEASURES (CURRENT) USE OF INSULIN 12/18/2016 MALVIN PAYAN MD, Ot Z79.899 OTHER INSPECTOR WEIGHTS AND MEASURES (CURRENT) DRUG THERAPY 12/18/2016 TREVOR TURCIOS MD, [...] INSULIN 12/18/2016 TREVOR TURCIOS MD Ot Z79.82 INSPECTOR WEIGHTS AND MEASURES (CURRENT) USE OF ASPIRIN 12/18/2016 TREVOR TURCIOS MD Ot Z79.899 OTHER INSPECTOR WEIGHTS AND MEASURES (CURRENT) DRUG THERAPY 12/18/2016 TREVOR TURCIOS MD [...] UNSPECIFIED 12/21/2016 TREVOR TURCIOS MD Ot Z79.4 USP (CURRENT) USE OF INSULIN 12/21/2016 TREVOR TURCIOS MD Ot Z79.82 USP (CURRENT) USE OF ASPIRIN 12/21/2016 TREVOR TURCIOS MD Ot Z79.899 OTHER INSPECTOR WEIGHTS AND MEASURES (CURRENT) DRUG THERAPY 12/21/2016 TREVOR TURCIOS MD [...] INSULIN 12/22/2016 TREVOR TURCIOS MD Ot Z79.82 INSPECTOR WEIGHTS AND MEASURES (CURRENT) USE OF ASPIRIN 12/22/2016 TREVOR TURCIOS MD, Ot Z79.899 OTHER USP (CURRENT) DRUG THERAPY 12/22/2016 TREVOR TURCIOS MD, Ot Z99.2 DEPENDENCE ON RENAL DIALYSIS 01/05/2017 MALVIN PAYAN MD, Ot D63.1 ANEMIA IN CHRONIC KIDNEY DISEASE 01/05/2017 MALVIN PAYAN MD, Ot E03.9 HYPOTHYROIDISM, UNSPECIFIED 01/05/2017 MALVIN PAYAN MD Ot E11.22 TYPE 2 DIABETES MELLITUS W DIABETIC SPECIAL LIBRARY LIBRARIAN 01/05/2017 MALVIN PAYAN MD, Ot E66.01 MORBID (SEVERE) OBESITY DUE TO EXCESS CA 01/05/2017 MALVIN PAYAN MD, Ot E83.42 HYPOMAGNESEMIA 01/05/2017 MALVIN PAYAN MD, Ot F32.9 MAJOR DEPRESSIVE DISORDER, SINGLE EPISOD 01/05/2017 MALVIN PAYAN MD, Ot F41.9 ANXIETY DISORDER, UNSPECIFIED 01/05/2017 MALVIN PAYAN MD, Ot I12.9 HYPERTENSIVE CHRONIC KIDNEY DISEASE W ST 01/05/2017 MALVIN PAYAN MD, Ot I25.10 ATHSCL HEART DISEASE OF [place] CORONARY 01/05/2017 MALVIN PAYAN MD, Ot I65.23 OCCLUSION AND STENOSIS OF BILATERAL [place] 01/05/2017 MALVIN PAYAN MD, Ot N18.9 CHRONIC KIDNEY DISEASE, UNSPECIFIED 01/05/2017 MALVIN PAYAN MD, Ot Z68.41 BODY MASS INDEX (BMI) 40.0-44.9, ADULT 01/05/2017 MALVIN PAYAN MD Ot Z79.4 INSPECTOR WEIGHTS AND MEASURES (CURRENT) USE OF INSULIN 01/05/2017 MALVIN PAYAN [...] ANTITHROMBOTI 01/06/2017 MARCELA MENDEZ DO, Ot Z79.4 INSPECTOR WEIGHTS AND MEASURES (CURRENT) USE OF INSULIN 01/06/2017 MARCELA MENDEZ [...] UNSPECIFIED 01/07/2017 MARCELA MENDEZ DO, Ot Z79.02 INSPECTOR WEIGHTS AND MEASURES (CURRENT) USE OF ANTITHROMBOTI 01/07/2017 MARCELA MENDEZ DO, Ot Z79.4 USP (CURRENT) USE OF INSULIN 01/07/2017 MARCELA MENDEZ DO, Ot Z79.82 INSPECTOR WEIGHTS AND MEASURES (CURRENT) USE OF ASPIRIN 01/07/2017 MARCELA MENDEZ DO, Ot Z79.899 OTHER INSPECTOR WEIGHTS AND MEASURES (CURRENT) DRUG THERAPY 01/07/2017 MARCELA MENDEZ DO, [...] 01/18/2017 URBAN JOHNSON APRN Ot Z79.899 OTHER INSPECTOR WEIGHTS AND MEASURES (CURRENT) DRUG THERAPY 01/18/2017 URBAN JOHNSON APRN [...] K56.41 FECAL IMPACTION 01/19/2017 JOHNSON, PETER J CULTURIST Ot K59.00 CONSTIPATION, UNSPECIFIED 01/19/2017 URBAN JOHNSON CULTURIST Ot M79.7 FIBROMYALGIA 01/19/2017 URBAN JOHNSON APRN Ot N18.6 END STAGE RENAL DISEASE 01/19/2017 URBAN JOHNSON APRN Ot Z79.02 INSPECTOR WEIGHTS AND MEASURES (CURRENT) USE OF ANTITHROMBOTI 01/19/2017 URBAN JOHNSON APRN Ot Z79.4 INSPECTOR WEIGHTS AND MEASURES (CURRENT) USE OF INSULIN 01/19/2017 URBAN JOHNSON APRN Ot Z79.82 USP (CURRENT) USE OF ASPIRIN 01/19/2017 URBAN JOHNSON APRN Ot Z79.899 OTHER INSPECTOR WEIGHTS AND MEASURES (CURRENT) DRUG THERAPY 01/19/2017 URBAN JOHNSON APRN [...] DISEASE 01/19/2017 URBAN JOHNSON APRN Ot Z79.02 INSPECTOR WEIGHTS AND MEASURES (CURRENT) USE OF ANTITHROMBOTI 01/19/2017 URBAN JOHNSON APRN Ot Z79.4 INSPECTOR WEIGHTS AND MEASURES (CURRENT) USE OF INSULIN 01/19/2017 URBAN JOHNSON APRN Ot Z79.82 USP (CURRENT) USE OF ASPIRIN 01/19/2017 URBAN JOHNSON APRN Ot Z79.899 OTHER INSPECTOR WEIGHTS AND MEASURES (CURRENT) DRUG THERAPY 01/19/2017 URBAN JOHNSON APRN [...] DISEASE 01/24/2017 URBAN JOHNSON APRN Ot Z79.02 INSPECTOR WEIGHTS AND MEASURES (CURRENT) USE OF ANTITHROMBOTI 01/24/2017 URBAN JOHNSON APRN Ot Z79.4 INSPECTOR WEIGHTS AND MEASURES (CURRENT) USE OF INSULIN 01/24/2017 URBAN JOHNSON [...] MD Ot I25.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 [place] COR ART W 01/29/2017 TREVOR TURCIOS MD Ot I51.7 CARDIOMEGALY 01/29/2017 TREVOR TURCIOS MD Ot J44.9 CHRONIC OBSTRUCTIVE PULMONARY DISEASE, U 01/29/2017 TREVOR TURCIOS MD Ot N18.6 END STAGE RENAL DISEASE 01/29/2017 TREVOR TURCIOS MD Ot R07.9 CHEST PAIN, UNSPECIFIED 01/29/2017 TREVOR TURCIOS MD Ot Z79.02 USP (CURRENT) USE OF ANTITHROMBOTI 01/29/2017 RTEVOR TURCIOS MD Ot Z79.4 INSPECTOR WEIGHTS AND MEASURES (CURRENT) USE OF INSULIN 01/29/2017 TREVOR TURCIOS MD Ot Z79.82 INSPECTOR WEIGHTS AND MEASURES (CURRENT) USE OF ASPIRIN 01/29/2017 TREVOR TURCIOS MD, Ot Z79.899 OTHER INSPECTOR WEIGHTS AND MEASURES (CURRENT) DRUG THERAPY 01/29/2017 TREVOR TURCIOS MD [...] DISEASE 02/15/2017 URBAN JOHNSON APRN Ot Z79.02 INSPECTOR WEIGHTS AND MEASURES (CURRENT) USE OF ANTITHROMBOTI 02/15/2017 URBAN JOHNSON APRN Ot Z79.4 INSPECTOR WEIGHTS AND MEASURES (CURRENT) USE OF INSULIN 02/15/2017 URBAN JOHNSON APRN Ot Z79.82 INSPECTOR WEIGHTS AND MEASURES (CURRENT) USE OF ASPIRIN 02/15/2017 URBAN JOHNSON APRN Ot Z79.899 OTHER INSPECTOR WEIGHTS AND MEASURES (CURRENT) DRUG THERAPY 02/15/2017 URBAN JOHNSON APRN Ot Z95.5 PRESENCE OF CORONARY ANGIOPLASTY IMPLANT 02/15/2017 URBAN JOHNSON APRN Ot Z99.2 DEPENDENCE ON RENAL DIALYSIS 02/19/2017 Ot 414.00 CORON ATHEROSCLER NOS TYPE VESSEL, NATIV 02/19/2017 ISABEL HUMPHREYS MD Ot 300.00 ANXIETY STATE NOS 02/19/2017 ISABEL HUMPHREYS MD Ot 311 DEPRESSIVE DISORDER NEC 02/19/2017 MARIBELL MARAVILLA INSTALLATION & MAINTENANCE EXECUTIVE Ot 790.6 ABN BLOOD CHEMISTRY NEC 02/19/2017 SEGLIE MD, ISABEL R Ot 285.9 ANEMIA NOS 02/19/2017 JULIANN MARSH, ISABEL R Ot 460 ACUTE NASOPHARYNGITIS 02/19/2017 MARIBELL MARAVILLA INSTALLATION & MAINTENANCE EXECUTIVE Ot 272.4 HYPERLIPIDEMIA NEC/NOS 02/19/2017 MARIBELL MARAVILLA INSTALLATION & MAINTENANCE EXECUTIVE Ot 401.9 HYPERTENSION NOS 02/19/2017 MARIBELL MARAVILLA INSTALLATION & MAINTENANCE EXECUTIVE Ot 414.00 CORON ATHEROSCLER NOS TYPE VESSEL, [...] CCDS Ot I25.10 ATHSCL HEART DISEASE OF [place] CORONARY 02/19/2017 DAVE MARSH FACC, ALI FACP CCDS Ot J43.8 OTHER EMPHYSEMA 02/19/2017 DULCE WILL MD Ot E11.9 TYPE 2 DIABETES MELLITUS WITHOUT COMPLIC 02/19/2017 DULCE WILL MD Ot E66.9 OBESITY, UNSPECIFIED 02/19/2017 DULCE WILL MD Ot I12.9 HYPERTENSIVE CHRONIC KIDNEY DISEASE W ST 02/19/2017 ANA WILL MDIL Ot I25.10 ATHSCL HEART DISEASE OF [place] CORONARY 02/19/2017 DULCE WILL MD Ot J44.9 CHRONIC OBSTRUCTIVE PULMONARY DISEASE, U 02/19/2017 DULCE WILL MD Ot N18.3 CHRONIC KIDNEY DISEASE, STAGE 3 (MODERAT 02/19/2017 NICOLETTE MARSH, DULCE Ot 403.90 HYPTNSV CHR KID DIS, UNSPEC, W CHR KD ST 02/19/2017 NIOCLETTE MARSH, DULCE Ot 585.3 CHRONIC KIDNEY DISEASE, STAGE III (MODER 02/19/2017 DAVE MARSH FACC, ALI FACP CCDS Ot E11.21 TYPE 2 DIABETES MELLITUS WITH DIABETIC N 02/19/2017 DAVE CHAVEZC, ALI FACP CCDS Ot I25.10 ATHSCL HEART DISEASE OF [place] CORONARY 02/19/2017 DAVE MARSH FACC, ALI FACP [...] CCDS Ot I25.10 ATHSCL HEART DISEASE OF [place] CORONARY 02/19/2017 DAVE MARSH FACC, ALI FACP [...] Ot H25.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, LEFT EYE 03/19/2017 AMIRA MARSH, VERNON Cardona Ot D64.9 ANEMIA, UNSPECIFIED 03/19/2017 VERNON CLOLIER MD Ot E03.9 HYPOTHYROIDISM, UNSPECIFIED 03/19/2017 VERNON COLLIER MD Ot E11.22 TYPE 2 DIABETES MELLITUS W DIABETIC SPECIAL LIBRARY LIBRARIAN 03/19/2017 VERNON COLLIER MD Ot F41.0 PANIC DISORDER WITHOUT AGORAPHOBIA 03/19/2017 VERNON COLLIER MD Ot I12.0 HYP CHR KIDNEY DISEASE W STAGE 5 CHR KID 03/19/2017 VERNON COLLIER MD Ot I25.10 ATHSCL HEART DISEASE OF [place] CORONARY 03/19/2017 VERNON COLLIER MD Ot J44.9 CHRONIC OBSTRUCTIVE PULMONARY DISEASE , U 03/19/2017 VERNON COLLIER MD Ot K21.9 GASTRO-ESOPHAGEAL REFLUX DISEASE WITHOUT 03/19/2017 VERNON COLLIER MD Ot M19.90 UNSPECIFIED OSTEOARTHRITIS, UNSPECIFIED 03/19/2017 VERNON COLLIER MD Ot N18.6 END STAGE RENAL DISEASE 03/19/2017 VERNON COLLIER MD, Ot R07.9 CHEST PAIN, UNSPECIFIED 03/19/2017 VERNON COLLIER MD, Ot R11.0 NAUSEA 03/19/2017 VERNON COLLIER MD, Ot Z79.4 INSPECTOR WEIGHTS AND MEASURES (CURRENT) USE OF INSULIN 03/19/2017 VERNON COLLIER MD, Ot Z79.82 USP (CURRENT) USE OF ASPIRIN 03/19/2017 VERNON COLLIER MD, Ot Z86.73 PRSNL HX OF TIA (TIA), AND CEREB INFRC W 03/19/2017 VERNON COLLIER MD, Ot Z90.49 ACQUIRED ABSENCE OF OTHER SPECIFIED PART 03/19/2017 VERNON COLLIER MD, Ot Z90.710 ACQUIRED ABSENCE OF BOTH CERVIX AND UTER 03/19/2017 VERNON COLLIER MD, Ot Z90.722 ACQUIRED ABSENCE OF OVARIES, BILATERAL 03/19/2017 VERNON COLLIER MD, Ot Z95.5 PRESENCE OF CORONARY ANGIOPLASTY IMPLANT 03/19/2017 VERNON COLLIER MD, Ot Z98.890 OTHER SPECIFIED POSTPROCEDURAL STATES 03/19/2017 VERNON COLLIER MD, Ot Z99.2 DEPENDENCE ON RENAL DIALYSIS 03/22/2017 VERNON COLLIER MD, Ot D64.9 ANEMIA, UNSPECIFIED 03/22/2017 VERNON COLLIER MD, Ot E03.9 HYPOTHYROIDISM, UNSPECIFIED 03/22/2017 VERNON COLLIER MD Ot E11.22 TYPE 2 DIABETES MELLITUS W DIABETIC SPECIAL LIBRARY LIBRARIAN 03/22/2017 VERNON COLLIER MD, Ot F41.0 PANIC DISORDER WITHOUT AGORAPHOBIA 03/22/2017 VERNON COLLIER MD, Ot I12.0 HYP CHR KIDNEY DISEASE W STAGE 5 CHR KID 03/22/2017 VERNON COLLIER MD, Ot I25.10 ATHSCL HEART DISEASE OF [place] CORONARY 03/22/2017 VERNON COLLIER MD, Ot J44.9 CHRONIC OBSTRUCTIVE PULMONARY DISEASE , U 03/22/2017 VERNON COLLIER MD, Ot K21.9 GASTRO-ESOPHAGEAL REFLUX DISEASE WITHOUT 03/22/2017 VERNON COLLIER MD, Ot M19.90 UNSPECIFIED OSTEOARTHRITIS, UNSPECIFIED 03/22/2017 VERNON COLLIER MD, Ot N18.6 END STAGE RENAL DISEASE 03/22/2017 VERNON COLLIER MD, Ot R07.9 CHEST PAIN, UNSPECIFIED 03/22/2017 VERNON COLLIER MD Ot R11.0 NAUSEA 03/22/2017 VERNON COLLIER MD, Ot Z79.4 USP (CURRENT) USE OF INSULIN 03/22/2017 VERNON COLLIER [...] ABSENCE OF OVARIES, BILATERAL 03/22/2017 VERNON COLLIER MD Ot Z95.5 PRESENCE OF CORONARY ANGIOPLASTY IMPLANT 03/22/2017 VERNON COLLIER MD, Ot Z98.890 OTHER SPECIFIED POSTPROCEDURAL STATES 03/22/2017 VRENON COLLIER MD, Ot Z99.2 DEPENDENCE ON RENAL DIALYSIS 04/01/2017 VERNON COLLIER MD Ot E11.22 TYPE 2 DIABETES MELLITUS W DIABETIC SPECIAL LIBRARY LIBRARIAN 04/01/2017 VERNON COLLIER MD, Ot I12.0 HYP CHR KIDNEY DISEASE W STAGE 5 CHR KID 04/01/2017 VERNON COLLIER MD, Ot I16.0 HYPERTENSIVE URGENCY 04/01/2017 VERNON COLLIER MD Ot I25.10 ATHSCL HEART DISEASE OF [place] CORONARY 04/01/2017 VERNON COLLIER MD Ot I51.7 CARDIOMEGALY 04/01/2017 VERNON COLLIER MD, Ot J44.9 CHRONIC OBSTRUCTIVE PULMONARY DISEASE , U 04/01/2017 VERNON COLLIER MD, Ot N18.6 END STAGE RENAL DISEASE 04/01/2017 VERNON COLLIER MD, Ot R07.9 CHEST PAIN, UNSPECIFIED 04/01/2017 VERNON COLLIER MD, Ot R11.0 NAUSEA 04/01/2017 VERNON COLLIER MD, Ot R51 HEADACHE 04/01/2017 VERNON COLLIER MD, Ot Z79.02 INSPECTOR WEIGHTS AND MEASURES (CURRENT) USE OF ANTITHROMBOTI 04/01/2017 VERNON COLLIER MD, Ot Z79.4 USP (CURRENT) USE OF INSULIN 04/01/2017 VERNON COLLIER MD, Ot Z79.82 USP (CURRENT) USE OF ASPIRIN 04/01/2017 VERNON COLLIER MD, Ot Z79.899 OTHER INSPECTOR WEIGHTS AND MEASURES (CURRENT) DRUG THERAPY 04/01/2017 VERNON COLLIER MD, Ot Z95.5 PRESENCE OF CORONARY ANGIOPLASTY IMPLANT 04/01/2017 VERNON COLLIER MD, Ot Z99.2 DEPENDENCE ON RENAL DIALYSIS 04/07/2017 MARIBEL MARTIN MD, Ot D63.1 ANEMIA IN CHRONIC KIDNEY DISEASE 04/07/2017 MARIBEL MARTIN MD, Ot E03.9 HYPOTHYROIDISM, UNSPECIFIED 04/07/2017 MARIBEL MARTIN MD, Ot E11.22 TYPE 2 DIABETES MELLITUS W DIABETIC SPECIAL LIBRARY LIBRARIAN 04/07/2017 MARIBEL MARTIN MD, Ot E66.01 MORBID (SEVERE) OBESITY DUE TO EXCESS CA 04/07/2017 MARIBEL MARTIN MD, Ot E83.42 HYPOMAGNESEMIA 04/07/2017 MARIBEL MARTIN MD, Ot F32.9 MAJOR DEPRESSIVE DISORDER, SINGLE EPISOD 04/07/2017 MARIBEL MARTIN MD, Ot F41.9 ANXIETY DISORDER, UNSPECIFIED 04/07/2017 MARIBEL MARTIN MD, Ot I12.9 HYPERTENSIVE CHRONIC KIDNEY DISEASE W ST 04/07/2017 MARIBEL MARTIN MD, Ot I25.10 ATHSCL HEART DISEASE OF [place] CORONARY 04/07/2017 MARIBEL MARTIN MD Ot I65.23 OCCLUSION AND STENOSIS OF BILATERAL [place] 04/07/2017 XUN MD, MARTINEZ-FLORA Ot N18.9 CHRONIC KIDNEY DISEASE, UNSPECIFIED 04/07/2017 MARIBEL MARTIN MD Ot Z68.41 BODY MASS INDEX (BMI) 40.0-44.9, ADULT 04/07/2017 MARIBEL MARTIN MD Ot Z79.4 INSPECTOR WEIGHTS AND MEASURES (CURRENT) USE OF INSULIN 04/07/2017 MARIBEL MARTIN MD Ot Z79.899 OTHER USP (CURRENT) DRUG THERAPY 04/29/2017 Ot 414.00 CORON ATHEROSCLER NOS TYPE VESSEL, NATIV 04/29/2017 ISABEL HUMPHREYS MD R Ot 300.00 ANXIETY STATE NOS 04/29/2017 ISABEL HUMPHREYS MD R Ot 311 DEPRESSIVE DISORDER NEC 04/29/2017 BAIMARIBELL SALEH INSTALLATION & MAINTENANCE EXECUTIVE Ot 790.6 ABN BLOOD CHEMISTRY NEC 04/29/2017 ISABEL HUMPHREYS MD R Ot 285.9 ANEMIA NOS 04/29/2017 ISABEL HUMPHREYS MD R Ot 460 ACUTE NASOPHARYNGITIS 04/29/2017 BAILEONIDES SALEHHER L INSTALLATION & MAINTENANCE EXECUTIVE Ot 272.4 HYPERLIPIDEMIA NEC/NOS 04/29/2017 BAIMA MARIBELL L INSTALLATION & MAINTENANCE EXECUTIVE Ot 401.9 HYPERTENSION NOS 04/29/2017 TAIWO MARIBELL L INSTALLATION & MAINTENANCE EXECUTIVE Ot 414.00 CORON ATHEROSCLER NOS TYPE VESSEL, NATIV 04/29/2017 ISABEL HUMPHREYS MD R Ot 348.89 OTHER CONDITIONS OF BRAIN 04/29/2017 ISABEL HUMPHREYS MD R Ot 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 04/29/2017 ISABEL HUMPHREYS MD R Ot 780.97 ALTERED MENTAL STATUS 04/29/2017 ISABEL HUMPHREYS MD R Ot 782.0 SKIN SENSATION DISTURB 04/29/2017 ISABEL HUMPHREYS MD R Ot V76.12 OTH SCREEN MAMMO-MALIGN NEOPLASM OF [place] 04/29/2017 Ot 250.01 DIAB AMBAR WO COMPL, TYPE I [JUVENILE TYP 04/29/2017 DAVE MARSH FACC, ALI FACP CCDS Ot D63.1 ANEMIA IN CHRONIC KIDNEY DISEASE 04/29/2017 DAVE MARSH FACC, ALI FACP CCDS Ot E11.9 TYPE 2 DIABETES MELLITUS WITHOUT COMPLIC 04/29/2017 DAVE MARSH FACC, ALI FACP CCDS Ot E66.8 OTHER OBESITY 04/29/2017 DAVE MARSH FACC, ALI FACP CCDS Ot I10 ESSENTIAL (PRIMARY) HYPERTENSION 04/29/2017 DAVE MARSH FACC, ALI FACP CCDS Ot I25.10 ATHSCL HEART DISEASE OF [place] CORONARY 04/29/2017 DAVE MARSH FACC, ALI FACP CCDS Ot J43.8 OTHER EMPHYSEMA 04/29/2017 NICOLETTE MARSH, DULCE Ot E11.9 TYPE 2 DIABETES MELLITUS WITHOUT COMPLIC 04/29/2017 NICOLETTE MARSH, DULCE Ot E66.9 OBESITY, UNSPECIFIED 04/29/2017 NICOLETTE MARSH, DULCE Ot I12.9 HYPERTENSIVE CHRONIC KIDNEY DISEASE W ST 04/29/2017 NICOLETTE MARSH, DULCE Ot I25.10 ATHSCL HEART DISEASE OF [place] CORONARY 04/29/2017 NICOLETTE MARSH DULCE Ot J44.9 CHRONIC OBSTRUCTIVE PULMONARY DISEASE, U 04/29/2017 NICOLETTE MARSH, DULCE Ot N18.3 CHRONIC KIDNEY DISEASE, STAGE 3 (MODERAT 04/29/2017 NICOLETTE MARSH, DULCE Ot 403.90 HYPTNSV CHR KID DIS, UNSPEC, W CHR KD ST 04/29/2017 NICOLETTE MARSH, DULCE Ot 585.3 CHRONIC KIDNEY DISEASE, STAGE III (MODER 04/29/2017 DAVE MARSH FACC, ALI FACP CCDS Ot E11.21 TYPE 2 DIABETES MELLITUS WITH DIABETIC N 04/29/2017 DAVE MARSH FACC, EARL FACP CCDS Ot I25.10 ATHSCL HEART DISEASE OF [place] CORONARY 04/29/2017 DAVE MARSH FACC, ALI FACP CCDS Ot I65.23 OCCLUSION AND STENOSIS OF BILATERAL [place] 04/29/2017 DAVE MARSH FACC, ALI FACP CCDS Ot I73.9 PERIPHERAL VASCULAR DISEASE, UNSPECIFIED 04/29/2017 DAVE MARSH FACC, ALI FACP CCDS Ot J44.9 CHRONIC OBSTRUCTIVE PULMONARY DISEASE, U 04/29/2017 DAVE MARSH FACC, ALI FACP CCDS Ot N18.9 CHRONIC KIDNEY DISEASE, UNSPECIFIED 04/29/2017 DAVE MARSH FACC, ALI FACP CCDS Ot R00.2 PALPITATIONS 04/29/2017 DAVE MARSH FACC, ALI FACP CCDS Ot D63.1 ANEMIA IN CHRONIC KIDNEY DISEASE 04/29/2017 DAVE MARSH FACC, ALI FACP CCDS Ot E11.9 TYPE 2 DIABETES MELLITUS WITHOUT COMPLIC 04/29/2017 DAVE CHAVEZ, EARL FACP CCDS Ot I25.10 ATHSCL HEART DISEASE OF [place] CORONARY 04/29/2017 DAVE MARSH MERGED WITH [facility], ALI FACP CCDS Ot I65.23 OCCLUSION AND STENOSIS OF BILATERAL [place] 04/29/2017 DAVE MARSH FACC, ALI FACP CCDS Ot I73.9 PERIPHERAL VASCULAR DISEASE, UNSPECIFIED 04/29/2017 DAVE MARSH FACDavid, ALI FACP CCDS Ot J43.8 OTHER EMPHYSEMA 04/29/2017 DAVE MARSH MERGED WITH [facility], ALI FACP CCDS Ot R00.2 PALPITATIONS 04/29/2017 KARI EDEN APRN Ot G47.33 OBSTRUCTIVE SLEEP APNEA (ADULT) ( PEDIATR 04/29/2017 KARI EDEN APRN Ot R06.00 DYSPNEA, UNSPECIFIED 04/29/2017 ISABEL HUMPHREYS MD Ot E11.9 TYPE 2 DIABETES MELLITUS WITHOUT COMPLIC 04/29/2017 ISABEL HUMPHREYS MD R Ot I10 ESSENTIAL (PRIMARY) HYPERTENSION 04/29/2017 DULCE WILL MD Ot I12.9 HYPERTENSIVE CHRONIC KIDNEY DISEASE W ST 04/29/2017 DULCE WILL MD Ot N18.3 CHRONIC KIDNEY DISEASE, STAGE 3 (MODERAT 04/29/2017 NICOLETTE MARSH, DULCE Ot 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 O 04/29/2017 DULCE WILL MD Ot N18.3 CHRONIC KIDNEY DISEASE, STAGE 3 (MODERAT 04/29/2017 NICOLETTE MARSH, DULCE Ot R31.9 HEMATURIA, UNSPECIFIED 04/29/2017 REJI MA MD Ot N18.6 END STAGE RENAL DISEASE 04/29/2017 REJI MA MD Ot Z01.89 ENCOUNTER FOR OTHER SPECIFIED SPECIAL EX 04/29/2017 REJI MA MD Ot Z99.2 DEPENDENCE ON RENAL DIALYSIS 04/29/2017 BIBI MARSH, ANTONIO Ot H25.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, LEFT EYE 04/29/2017 MARIBEL MARTIN MD Ot D63.1 ANEMIA IN CHRONIC KIDNEY DISEASE 04/29/2017 MARIBEL MARTIN MD Ot E03.9 HYPOTHYROIDISM, UNSPECIFIED 04/29/2017 MARIBEL MARTIN MD Ot E11.22 TYPE 2 DIABETES MELLITUS W DIABETIC SPECIAL LIBRARY LIBRARIAN 04/29/2017 XUN MD, MARTINEZ-FLORA Ot E66.01 MORBID (SEVERE) OBESITY DUE TO EXCESS CA 04/29/2017 MARIBEL MARTIN MD Ot E83.42 HYPOMAGNESEMIA 04/29/2017 MARIBEL MARTIN MD, Ot F32.9 MAJOR DEPRESSIVE DISORDER, SINGLE EPISOD 04/29/2017 MARIBEL MARTIN MD, Ot F41.9 ANXIETY DISORDER, UNSPECIFIED 04/29/2017 MARIBEL MARTIN MD, Ot I12.9 HYPERTENSIVE CHRONIC KIDNEY DISEASE W ST 04/29/2017 MARIBEL MARTIN MD, Ot I25.10 ATHSCL HEART DISEASE OF [place] CORONARY 04/29/2017 MARIBEL MARTIN MD, Ot I65.23 OCCLUSION AND STENOSIS OF BILATERAL [place] 04/29/2017 MARIBEL MARTIN MD, Ot N18.9 CHRONIC KIDNEY DISEASE, UNSPECIFIED 04/29/2017 MARIBEL MARTIN MD, Ot Z68.41 BODY MASS INDEX (BMI) 40.0-44.9, ADULT 04/29/2017 MARIBEL MARTIN MD Ot Z79.4 USP (CURRENT) USE OF INSULIN 04/29/2017 MARIBEL MARTIN MD, Ot Z79.899 OTHER INSPECTOR WEIGHTS AND MEASURES (CURRENT) DRUG THERAPY 04/29/2017 URBAN JOHNSON APRN Ot E11.9 TYPE 2 DIABETES MELLITUS WITHOUT COMPLIC 04/29/2017 URBAN JOHNSON APRN Ot F41.9 ANXIETY DISORDER, UNSPECIFIED 04/29/2017 URBAN JOHNSON APRN Ot I12.0 HYP CHR KIDNEY DISEASE W STAGE 5 CHR KID 04/29/2017 URBAN JOHNSON APRN Ot I25.10 ATHSCL HEART DISEASE OF [place] CORONARY 04/29/2017 URBAN JOHNSON APRN Ot I51.7 CARDIOMEGALY 04/29/2017 URBAN JOHNSON APRN Ot J44.9 CHRONIC OBSTRUCTIVE PULMONARY DISEASE, U 04/29/2017 URBAN JOHNSON APRN Ot K21.9 GASTRO-ESOPHAGEAL REFLUX DISEASE WITHOUT 04/29/2017 URBAN JOHNSON APRN Ot M79.7 FIBROMYALGIA 04/29/2017 URBAN JOHNSON APRN Ot N18.6 END STAGE RENAL DISEASE 04/29/2017 URBAN JOHNSON APRN Ot R07.89 OTHER CHEST PAIN 04/29/2017 URBAN JOHNSON APRN Ot R07.9 CHEST PAIN, UNSPECIFIED 04/29/2017 URBAN JOHNSON APRN Ot Z79.4 USP (CURRENT) USE OF INSULIN 04/29/2017 URBAN JOHNSON APRN Ot Z79.82 USP (CURRENT) USE OF ASPIRIN 04/29/2017 URBAN JOHNSON APRN Ot Z79.899 OTHER INSPECTOR WEIGHTS AND MEASURES (CURRENT) DRUG THERAPY 04/29/2017 URBAN JOHNSON APRN Ot Z86.73 PRSNL HX OF TIA (TIA), AND CEREB INFRC W 04/29/2017 URBAN JOHNSON APRN Ot Z95.5 PRESENCE OF CORONARY ANGIOPLASTY IMPLANT 04/29/2017 URBAN JOHNSON APRN Ot Z95.828 PRESENCE OF OTHER VASCULAR IMPLANTS AND 04/29/2017 URBAN JOHNSON APRN Ot Z99.2 DEPENDENCE ON RENAL DIALYSIS 05/01/2017 URBAN JOHNSON APRN Ot E11.9 TYPE 2 DIABETES MELLITUS WITHOUT COMPLIC 05/01/2017 URBAN JOHNSON APRN Ot F41.9 ANXIETY DISORDER, UNSPECIFIED 05/01/2017 URBAN JOHNSON APRN Ot I12.0 HYP CHR KIDNEY DISEASE W STAGE 5 CHR KID 05/01/2017 URBAN JOHNSON APRN Ot I25.10 ATHSCL HEART DISEASE OF [place] CORONARY 05/01/2017 URBAN JOHNSON APRN Ot I51.7 CARDIOMEGALY 05/01/2017 URBAN JOHNSON APRN Ot J44.9 CHRONIC OBSTRUCTIVE PULMONARY DISEASE, U 05/01/2017 URBAN JOHNSON APRN Ot K21.9 GASTRO-ESOPHAGEAL REFLUX DISEASE WITHOUT 05/01/2017 URBAN JOHNSON APRN Ot M79.7 FIBROMYALGIA 05/01/2017 URBAN JOHNSON APRN Ot N18.6 END STAGE RENAL DISEASE 05/01/2017 URBAN JOHNSON APRN Ot R07.89 OTHER CHEST PAIN 05/01/2017 URABN JOHNSON APRN Ot R07.9 CHEST PAIN, UNSPECIFIED 05/01/2017 URBAN JOHNSON APRN Ot Z79.4 USP (CURRENT) USE OF INSULIN 05/01/2017 URBAN JOHNSON APRN Ot Z79.82 INSPECTOR WEIGHTS AND MEASURES (CURRENT) USE OF ASPIRIN 05/01/2017 URBAN JOHNSON APRN Ot Z79.899 OTHER USP (CURRENT) DRUG THERAPY 05/01/2017 URBAN JOHNSON APRN Ot Z86.73 PRSNL HX OF TIA (TIA), AND CEREB INFRC W 05/01/2017 URBAN JOHNSON APRN Ot Z95.5 PRESENCE OF CORONARY ANGIOPLASTY IMPLANT 05/01/2017 URBAN JOHNSON APRN Ot Z95.828 PRESENCE OF OTHER VASCULAR IMPLANTS AND 05/01/2017 URBAN JOHNSON APRN Ot Z99.2 DEPENDENCE ON RENAL DIALYSIS 05/02/2017 DARLENE MYERS MD Ot E03.9 HYPOTHYROIDISM, UNSPECIFIED 05/02/2017 DARLENE MYERS MD Ot E11.22 TYPE 2 DIABETES MELLITUS W DIABETIC SPECIAL LIBRARY LIBRARIAN 05/02/2017 DARLENE MYERS MD Ot F41.0 PANIC DISORDER WITHOUT AGORAPHOBIA 05/02/2017 DARLENE MYERS MD Ot I12.0 HYP CHR KIDNEY DISEASE W STAGE 5 CHR KID 05/02/2017 DARLENE MYERS MD Ot I24.9 ACUTE ISCHEMIC HEART DISEASE, UNSPECIFIE 05/02/2017 DARLENE MYERS MD Ot I25.10 ATHSCL HEART DISEASE OF [place] CORONARY 05/02/2017 DARLENE MYERS MD Ot J44.9 CHRONIC OBSTRUCTIVE PULMONARY DISEASE, U 05/02/2017 DARLENE MYERS MD Ot K21.9 GASTRO-ESOPHAGEAL REFLUX DISEASE WITHOUT 05/02/2017 DARLENE MYERS MD Ot L03.115 CELLULITIS OF RIGHT LOWER LIMB 05/02/2017 DARLENE MYERS MD Ot M19.90 UNSPECIFIED OSTEOARTHRITIS, UNSPECIFIED 05/02/2017 DARLENE MYERS MD Ot N18.6 END STAGE RENAL DISEASE 05/02/2017 DARLENE MYERS MD Ot R07.2 PRECORDIAL PAIN 05/02/2017 DARLENE MYERS MD Ot Z79.4 USP (CURRENT) USE OF INSULIN 05/02/2017 DARLENE MYERS MD Ot Z79.82 INSPECTOR WEIGHTS AND MEASURES (CURRENT) USE OF ASPIRIN 05/02/2017 DARLENE MYERS MD Ot Z80.41 FAMILY HISTORY OF MALIGNANT NEOPLASM OF 05/02/2017 DARLENE MYERS MD Ot Z82.49 FAMILY HX OF ISCHEM HEART DIS AND OTH DI 05/02/2017 ADRLENE MYERS MD Ot Z86.19 PERSONAL HISTORY OF OTHER INFECTIOUS AND 05/02/2017 DARLENE MYERS MD Ot Z86.73 PRSNL HX OF TIA (TIA), AND CEREB INFRC W 05/02/2017 DARLENE MYERS MD Ot Z87.19 PERSONAL HISTORY OF OTHER DISEASES OF TH 05/02/2017 DARLENE MYERS MD Ot Z90.49 ACQUIRED ABSENCE OF OTHER SPECIFIED PART 05/02/2017 DARLENE MYERS MD Ot Z90.710 ACQUIRED ABSENCE OF BOTH CERVIX AND UTER 05/02/2017 DARLENE MYERS MD Ot Z95.5 PRESENCE OF CORONARY ANGIOPLASTY IMPLANT 05/02/2017 DARLENE MYERS MD Ot Z99.2 DEPENDENCE ON RENAL DIALYSIS 05/06/2017 DARLENE MYERS MD Ot E03.9 HYPOTHYROIDISM, UNSPECIFIED 05/06/2017 DARLENE MYERS MD Ot E11.22 TYPE 2 DIABETES MELLITUS W DIABETIC SPECIAL LIBRARY LIBRARIAN 05/06/2017 DARLENE MYERS MD Ot F41.0 PANIC DISORDER WITHOUT AGORAPHOBIA 05/06/2017 DARLENE MYERS MD Ot I12.0 HYP CHR KIDNEY DISEASE W STAGE 5 CHR KID 05/06/2017 DARLENE MYERS MD Ot I24.9 ACUTE ISCHEMIC HEART DISEASE, UNSPECIFIE 05/06/2017 DARLENE MYERS MD Ot I25.10 ATHSCL HEART DISEASE OF [place] CORONARY 05/06/2017 DARLENE MYERS MD Ot J44.9 CHRONIC OBSTRUCTIVE PULMONARY DISEASE, U 05/06/2017 DARLENE MYERS MD Ot K21.9 GASTRO-ESOPHAGEAL REFLUX DISEASE WITHOUT 05/06/2017 DARLENE MYERS MD Ot L03.115 CELLULITIS OF RIGHT LOWER LIMB 05/06/2017 DARLENE MYERS MD Ot M19.90 UNSPECIFIED OSTEOARTHRITIS, UNSPECIFIED 05/06/2017 DARLENE MYERS MD Ot N18.6 END STAGE RENAL DISEASE 05/06/2017 DARLENE MYERS MD Ot R07.2 PRECORDIAL PAIN 05/06/2017 DARLENE MYERS MD Ot Z79.4 INSPECTOR WEIGHTS AND MEASURES (CURRENT) USE OF INSULIN 05/06/2017 DARLENE MYERS MD Ot Z79.82 INSPECTOR WEIGHTS AND MEASURES (CURRENT) USE OF ASPIRIN 05/06/2017 DARLENE MYERS MD Ot Z80.41 FAMILY HISTORY OF MALIGNANT NEOPLASM OF 05/06/2017 DARLENE MYERS MD, Ot Z82.49 FAMILY HX OF ISCHEM HEART DIS AND OTH DI 05/06/2017 DARLENE MYERS MD, Ot Z86.19 PERSONAL HISTORY OF OTHER INFECTIOUS AND 05/06/2017 DARLENE MYERS MD, Ot Z86.73 PRSNL HX OF TIA (TIA), AND CEREB INFRC W 05/06/2017 DARLENE MYERS MD, Ot Z87.19 PERSONAL HISTORY OF OTHER DISEASES OF TH 05/06/2017 DARLENE MYERS MD, Ot Z90.49 ACQUIRED ABSENCE OF OTHER SPECIFIED PART 05/06/2017 DARLENE MYERS MD, Ot Z90.710 ACQUIRED ABSENCE OF BOTH CERVIX AND UTER 05/06/2017 DARLENE MYERS MD, Ot Z95.5 PRESENCE OF CORONARY ANGIOPLASTY IMPLANT 05/06/2017 DARLENE MYERS MD, Ot Z99.2 DEPENDENCE ON RENAL DIALYSIS 05/07/2017 TREVOR TURCIOS MD, Ot D70.9 NEUTROPENIA, UNSPECIFIED 05/07/2017 TREVOR TURCIOS MD Ot E03.9 HYPOTHYROIDISM, UNSPECIFIED 05/07/2017 TREVOR TURCIOS MD Ot E11.22 TYPE 2 DIABETES MELLITUS W DIABETIC SPECIAL LIBRARY LIBRARIAN 05/07/2017 TREVOR TURCIOS MD, Ot F41.0 PANIC DISORDER WITHOUT AGORAPHOBIA 05/07/2017 TREVOR TURCIOS MD, Ot I12.0 HYP CHR KIDNEY DISEASE W STAGE 5 CHR KID 05/07/2017 TREVOR TURCIOS MD, Ot I25.10 ATHSCL HEART DISEASE OF [place] CORONARY 05/07/2017 TREVOR TURCIOS MD, Ot J44.9 CHRONIC OBSTRUCTIVE PULMONARY DISEASE, U 05/07/2017 TREVOR TURCIOS MD, Ot K21.9 GASTRO-ESOPHAGEAL REFLUX DISEASE WITHOUT 05/07/2017 TREVOR TURCIOS MD Ot M19.90 UNSPECIFIED OSTEOARTHRITIS, UNSPECIFIED 05/07/2017 TREVOR TURCIOS MD, Ot N18.6 END STAGE RENAL DISEASE 05/07/2017 TREVOR TURCIOS MD Ot R07.89 OTHER CHEST PAIN 05/07/2017 TREVOR TURCIOS MD, Ot Z79.4 INSPECTOR WEIGHTS AND MEASURES (CURRENT) USE OF INSULIN 05/07/2017 TREVOR TURCIOS MD, Ot Z79.82 USP (CURRENT) USE OF ASPIRIN 05/07/2017 TREVOR TURCIOS MD, Ot Z80.41 FAMILY HISTORY OF MALIGNANT NEOPLASM OF 05/07/2017 TREVOR TURCIOS MD, Ot Z82.49 FAMILY HX OF ISCHEM HEART DIS AND OTH DI 05/07/2017 TREVOR TURCIOS MD, Ot Z86.14 PERSONAL HISTORY OF METHICILLIN RESIS ST 05/07/2017 TREVOR TURCIOS MD, Ot Z86.73 PRSNL HX OF TIA (TIA), AND CEREB INFRC W 05/07/2017 TREVOR TURCIOS MD, Ot Z87.19 PERSONAL HISTORY OF OTHER DISEASES OF TH 05/07/2017 TREVOR TURCIOS MD, Ot Z90.710 ACQUIRED ABSENCE OF BOTH CERVIX AND UTER 05/07/2017 TREVOR TURCIOS MD, Ot Z90.89 ACQUIRED ABSENCE OF OTHER ORGANS 05/07/2017 TREVOR TURCIOS MD, Ot Z95.5 PRESENCE OF CORONARY ANGIOPLASTY IMPLANT 05/07/2017 TREVOR TURCIOS MD Ot Z99.2 DEPENDENCE ON RENAL DIALYSIS 05/10/2017 TREVOR TURCIOS MD Ot D70.9 NEUTROPENIA, UNSPECIFIED 05/10/2017 TREVOR TURCIOS MD Ot E03.9 HYPOTHYROIDISM, UNSPECIFIED 05/10/2017 TREVOR TURCIOS MD Ot E11.22 TYPE 2 DIABETES MELLITUS W DIABETIC SPECIAL LIBRARY LIBRARIAN 05/10/2017 TREVOR TURCIOS MD Ot F41.0 PANIC DISORDER WITHOUT AGORAPHOBIA 05/10/2017 TREVOR TURCIOS MD Ot I12.0 HYP CHR KIDNEY DISEASE W STAGE 5 CHR KID 05/10/2017 TREVOR TURCIOS MD Ot I25.10 ATHSCL HEART DISEASE OF [place] CORONARY 05/10/2017 TREVOR TURCIOS MD Ot J44.9 CHRONIC OBSTRUCTIVE PULMONARY DISEASE, U 05/10/2017 TREVOR TURCIOS MD, Ot K21.9 GASTRO-ESOPHAGEAL REFLUX DISEASE WITHOUT 05/10/2017 TREVOR TURCIOS MD Ot M19.90 UNSPECIFIED OSTEOARTHRITIS, UNSPECIFIED 05/10/2017 TREVOR TURCIOS MD Ot N18.6 END STAGE RENAL DISEASE 05/10/2017 TREVOR TURCIOS MD Ot R07.89 OTHER CHEST PAIN 05/10/2017 TREVOR TURCIOS MD Ot Z79.4 USP (CURRENT) USE OF INSULIN 05/10/2017 TREVOR TURCIOS MD, Ot Z79.82 USP (CURRENT) USE OF ASPIRIN 05/10/2017 TREVOR TURCIOS MD Ot Z80.41 FAMILY HISTORY OF MALIGNANT NEOPLASM OF 05/10/2017 TREVOR TURCIOS MD, Ot Z82.49 FAMILY HX OF ISCHEM HEART DIS AND OTH DI 05/10/2017 TREVOR TURCIOS MD Ot Z86.14 PERSONAL HISTORY OF METHICILLIN RESIS ST 05/10/2017 TREVOR TURCIOS MD, Ot Z86.73 PRSNL HX OF TIA (TIA), AND CEREB INFRC W 05/10/2017 TREVOR TURCIOS MD, Ot Z87.19 PERSONAL HISTORY OF OTHER DISEASES OF TH 05/10/2017 TREVOR TURCIOS MD, Ot Z90.710 ACQUIRED ABSENCE OF BOTH CERVIX AND UTER 05/10/2017 TREVOR TURCIOS MD, Ot Z90.89 ACQUIRED ABSENCE OF OTHER ORGANS 05/10/2017 TREVOR TURCIOS MD Ot Z95.5 PRESENCE OF CORONARY ANGIOPLASTY IMPLANT 05/10/2017 TREVOR TURCIOS MD, Ot Z99.2 DEPENDENCE ON RENAL DIALYSIS Procedures Code Description Performed By Performed On 47.01 LAPAROSCOP APPENDECTOMY 08/02/2009 71.09 INCIS VULVA/PERINEUM NEC 07/23/2011 98.28 REMOVAL FB FROM FOOT 08/19/2013 86.04 OTHER SKIN SUBQ I D 08/22/2013 45.16 ESOPHAGOGASTRODUODENOSCOPY [EGD] W/CLOSE 02/07/2014 45.23 COLONOSCOPY 02/07 02133 PSYCH DIAGNOSTIC EVALUATION 03/15/2014 13009 PSYTX PT&/FAMILY 45 MINUTES 04/26/2014 09933 PSYTX PT&/FAMILY 60 MINUTES 05/11/2014 57246 PSYTX PT&/FAMILY 45 MINUTES 05/15/2014 21067 PSYTX PT&/FAMILY 45 MINUTES 05/15/2014 05227 PSYTX PT&/FAMILY 45 MINUTES 06/12/2014 49191 PSYTX PT&/FAMILY 45 MINUTES 06/12/2014 51276 PSYTX PT&/FAMILY 45 MINUTES 06/26/2014 61608 PSYTX PT&/FAMILY 45 MINUTES 07/10/2014 52005 PSYTX PT&/FAMILY 45 MINUTES 08/07/2014 90912 PSYTX PT&/FAMILY 45 MINUTES 09/18/2014 00.41 PROCEDURE ON TWO VESSELS 11/01/2014 00.46 INSERTION OF TWO VASCULAR STENTS 11/01/2014 00.66 PERCUTANEOUS TRANSLUMINAL CORONARY ANGIO 11/01/2014 36.06 CORONARY ARTERY STENT INSERTION NON-DRUG 11/01/2014 36.07 INSRT OF DRUG-ELUTING CORON ARTERY STENT 11/01/2014 37.22 LEFT HEART CARDIAC CATH 11/01/2014 88.56 CORONAR ARTERIOGR-2 CATH 11/01/2014 70174 PSYTX PT&/FAMILY 45 MINUTES 11/28/2014 71560 PSYTX PT&/FAMILY 45 MINUTES 01/01/2015 [id number] DILATION OF CORONARY ARTERY, ONE SITE, P 01/14/2016 [id number] MEASURE OF CARDIAC SAMPL PRESSURE, L H 01/14/2016 [id number] FLUOROSCOPY OF MULT COR ART USING L OSM 01/14/2016 Encounters ACCT No. Visit Date/Time Discharge Status Pt. Type Provider Facility Loc./Unit Complaint [id number] 01/01/2015 10:41:00 01/01/2015 23: 59:59 CLS Outpatient SOPHIA LSKAREN [id number] 11/28/2014 10:59:00 11/28/2014 23: 59:59 CLS Outpatient SOPHIA LSCS, KAREN Zaidi [id number] 09/18/2014 10:06:00 09/18/2014 23: 59:59 CLS Outpatient SOPHIA LSCS, KAREN Zaidi [id number] 08/07/2014 10:01:00 08/07/2014 23: 59:59 CLS Outpatient SOPHIA LSCSKAREN [id number] 07/10/2014 10:13:00 07/10/2014 23: 59:59 CLS Outpatient SOPHIA LSCS, KAREN Zaidi [id number] 06/26/2014 10:19:00 06/26/2014 23: 59:59 CLS Outpatient SOPHIA LSCS, KAREN Zaidi [id number] 06/12/2014 10:01:00 06/12/2014 23: 59:59 CLS Outpatient SOPHIA LSCS, KAREN Zaidi [id number] 05/15/2014 13:01:00 05/15/2014 23: 59:59 CLS Outpatient SOPHIA LSCS, KAREN Zaidi [id number] 05/10/2014 16:00:00 05/10/2014 23: 59:59 [facility] Outpatient [place] JURGEN BRIONES [id number] 04/26/2014 13:46:00 04/26/2014 23: 59:59 CLS Outpatient KAREN ECHAVARRIA [id number] 03/14/2014 12:05:00 03/14/2014 23: 59:59 CLS Outpatient JURGEN CASTORENA [facility] [id number] 05/14/2017 08:40:00 2016 10:56:00 DIS Emergency TREVOR TURCIOS MD [facility] ER BLEEDING FROM WOUND [id number] 05/13/2017 12:43:00 2016 23:59:59 CLS Outpatient HAYLEE HERNANDEZ MD [facility] LAB CBC W AUTO DIFFERENTIAL PANEL IN BLOOD [id number] 05/13/2017 10:27:00 2016 23:59:59 CLS Outpatient HAYLEE HERNANDEZ MD [facility] WOUNDCARE [id number] 05/07/2017 12:43:00 2016 17:00:00 DIS Emergency TREVOR TURCIOS MD [facility] ER CP/ABD PAIN [id number] 04/30/2017 00:11:00 2016 05:45:00 DIS Outpatient DARLENE MYERS MD [facility] ER HIGH BLOOD PRESSURE,CHEST PAIN [id number] 04/29/2017 15:45:00 2016 20:55:00 DIS Emergency URBAN JOHNSON APRN [facility] ER CHEST PAIN [id number] 04/01/2017 09:24:00 2016 11:33:00 DIS Emergency VERNON COLLIER MD [facility] ER CHEST PAIN [id number] 03/19/2017 03:22:00 2016 05:52:00 DIS Emergency VERNON COLLIER MD [facility] ER CHEST PAIN [id number] 01/29/2017 10:10:00 2016 13:01:00 DIS Emergency TREVOR TURCIOS MD [facility] ER CHEST PAIN [id number] 01/18/2017 08:44:00 2016 11:17:00 DIS Emergency JOHNSONURBAN APRN [facility] ER ABD PAIN [id number] 01/06/2017 00:09:00 2016 23:59:59 CLS Preadmit MARIO MARSH, MARIBEL [facility] ONC [id number] 01/06/2017 00:44:00 2016 03:31:00 DIS Emergency ANDREA DO MARCELA D [facility] ER CP,SYNCOPAL [id number] 12/10/2016 12:15:00 2016 00:01:00 DIS Outpatient MALVIN PAYAN MD [facility] ONC [id number] 12/18/2016 08:21:00 2016 12:09:00 DIS Emergency TREVOR TURCIOS MD [facility] ER CHEST PAIN [id number] 10/10/2016 19:42:00 2016 23:30:00 DIS Emergency GUMARO HEBERT MD [facility] ER CHEST PAIN [id number] 06/30/2016 11:21:00 2016 00:01:00 DIS Outpatient MALVIN PAYAN MD [facility] ONC [id number] 09/23/2016 20:23:00 2016 23:15:00 DIS Emergency ANNE MARIE ROSEN DO [facility] ER CHEST PAIN [id number] 08/24/2016 15:36:00 2015 19:57:00 DIS Emergency VERNON COLLIER MD [facility] ER ABD PAIN [id number] 08/13/2016 21:22:00 2015 00:39:00 DIS Emergency VERNON COLLIER MD [facility] ER CHEST PAIN [id number] 07/23/2016 08:36:00 2015 23:59:59 CLS Outpatient ANTONIO MTZ MD [facility] LAB CATARACT [id number] 05/05/2016 09:44:00 2015 15:02:00 DIS Outpatient MALVIN PAYAN MD [facility] ONC [id number] 05/20/2016 17:20:00 2015 20:24:00 DIS Emergency ANNE MARIE ROSEN DO [facility] ER CP [id number] 03/03/2016 09:48:00 2015 00:01:00 DIS Outpatient MALVIN PAYAN MD [facility] ONC [id number] 02/29/2016 19:10:00 2015 21:59:00 DIS Emergency GUMARO HEBERT MD [facility] ER CHEST PAIN [id number] 02/24/2016 14:17:00 2015 23:59:59 CLS Outpatient REJI MA MD [facility] HH CKD, DIALYSIS, SCREENING [id number] 01/15/2016 09:36:00 2015 11:05:00 DIS Inpatient ISABEL HUMPHREYS MD [facility] CSD CHEST PAIN [id number] 01/09/2016 10:33:00 2015 23:59:59 CLS Outpatient DULCE WILL MD [facility] LAB [id number] 12/11/2015 10:17:00 2015 23:59:59 CLS Outpatient DULCE WILL MD [facility] LAB [id number] 11/27/2015 10:43:00 2015 00:01:00 DIS Outpatient MALVIN PAYAN MD [facility] ONC [id number] 11/18/2015 15:38:00 2015 23:59:59 CLS Outpatient KARI EDEN APRN [facility] RT DYSPNEA [id number] 11/04/2015 09:13:00 2015 23:59:59 CLS Outpatient ISABEL HUMPHREYS MD [facility] LAB HYPERTENSION, DIABETES [id number] 10/23/2015 08:55:00 2015 23:59:59 CLS Outpatient DAVE MARSH FACC, EARL GASCA CCDS [facility] RAD LEFT LEG CLAUDICATION [id number] 10/22/2015 08:11:00 2015 23:59:59 CLS Outpatient DAVE MARSH FACDavid, EARL GASCA CCDS [facility] CARD PALPTIATIONS,CAD,CKD,COPD [id number] 08/20/2015 14:02:00 2014 00:01:00 DIS Outpatient MALVIN PAYAN MD [facility] ONC [id number] 07/04/2015 12:44:00 2014 23:59:59 CLS Outpatient DAVE MARSH FACC, EARL GASCA CCDS [facility] LAB HTN,OBESITY,DM II,COPD,CKD, CAD [id number] 07/04/2015 12:32:00 2014 23:59:59 CLS Outpatient DULCE WILL MD [facility] LAB HTN,DM II,COPD,CKD,CAD,OBESITY [id number] 06/13/2015 17:40:00 2014 16:05:00 DIS Inpatient ISABEL HUMPHREYS MD [facility] ICU CHEST PAIN,HTN [id number] 05/30/2015 11:32:00 2014 00:01:00 DIS Outpatient MALVIN PAYAN MD [facility] ONC [id number] 05/27/2015 13:07:00 2014 15:55:00 DIS Emergency VERNON COLLIER MD [facility] ER LOW BLOOD SUGAR [id number] 05/16/2015 09:58:00 2014 00:01:00 DIS Outpatient MALVIN PAYAN MD [facility] ONC [id number] 04/26/2015 09:46:00 2014 10:44:00 DIS Inpatient ISABEL HUMPHREYS MD [facility] 4TH HYPERKALEMIA,DEPRESSION,FATIGUE,ANEMIA [id number] 04/19/2015 10:53:00 2014 15:55:00 DIS Emergency GUMARO HEBERT MD [facility] ER SOA [id number] 03/21/2015 10:35:00 2014 23:59:59 CLS Outpatient NICOLETTE MARSH, DULCE [facility] LAB [id number] 03/11/2015 14:46:00 2014 15:10:00 DIS Outpatient KARI EDEN APRN [facility] SLEEP Observed Apnea, Snoring, HTN, EDS, Heart Disease [id number] 02/07/2015 10:55:00 2014 00:01:00 DIS Outpatient MALVIN PAYAN MD [facility] ONC [id number] 11/22/2014 23:15:00 2014 16:37:00 DIS Inpatient ISABEL HUMPHREYS MD [facility] CSD CHEST PAIN, HYPERTENSIVE URGENCY, R FACE TINGLING [id number] 09/20/2014 20:00:00 2014 23:59:59 CLS Preadmit JASMIN GUILLEN APRN [facility] SLEEP [id number] 04/17/2014 14:36:00 2013 00:01:00 DIS Outpatient ANTONIO MTZ MD [facility] LAB DIABETES [id number] 06/22/2014 10:35:00 2013 23:59:59 CLS Outpatient ISABEL HUMPHREYS MD [facility] RAD ROUTINE [id number] 02/26/2014 13:05:00 2013 00:01:00 DIS Outpatient MALVIN PAYAN MD [facility] ONC [id number] 05/17/2014 18:14:00 2013 22:20:00 DIS Emergency CASSIDY ACOSTA [facility] ER ABDOMINAL PAIN RIGHT SIDE [id number] 03/14/2014 08:31:00 2013 23:59:59 CLS Outpatient ISABEL HUMPHREYS MD [facility] RAD CHANGE IN [id number] 02/20/2014 09:24:00 2013 12:40:00 DIS Inpatient ISABEL HUMPHREYS MD [facility] 4TH ANEMIA,EDEMA, DEPRESSION [id number] 02/01/2014 00:17:00 2013 12:25:00 DIS Inpatient ISABEL HUMPHREYS MD [facility] SURGICAL CHEST PAIN,HYPERTENSIVE URGENCY, ANXIETY,HYPERKALEM [id number] 11/30/2013 13:56:00 2013 23:59:59 CLS Outpatient MARIBELL MARAVILLA [facility] CARD CAD,HTN,HLD [id number] 10/02/2013 15:06:00 2013 23:59:59 CLS Outpatient ISABEL HUMPHREYS MD [facility] LAB ANEMIA,COLD [id number] 08/19/2013 10:04:00 2013 16:10:00 DIS Inpatient ISABEL HUMPHREYS MD [facility] 4TH CELLULITIS/MRSA [id number] 04/19/2013 16:55:00 2012 12:45:00 DIS Inpatient ISABEL HUMPHREYS MD [facility] 4TH UNCONTROLLED DIABETES,DIZZINESS [id number] 04/17/2013 14:03:00 2012 19:00:00 DIS Emergency JESSIKA DO, ANNE MARIE K [facility] ER MULTIPLE COMPLAINTS [id number] 04/06/2013 13:13:00 2012 23:59:59 CLS Outpatient MARIBELL MARAVILLA [facility] LAB ELEVATED CR [id number] 03/20/2013 15:06:00 2012 23:59:59 CLS Outpatient ISABEL HUMPHREYS MD [facility] LAB ANXIETY,DEPRESSION [id number] 02/27/2013 15:15:00 2012 08:04:00 DIS Inpatient ISABEL HUMPHREYS MD [facility] 4TH STAPH R EYE EAR [id number] 02/21/2013 09:59:00 2012 13:37:00 DIS Emergency CASSIDY ACOSTA [facility] ER FALL/EYE REDNESS EAR/HEAD PAIN [id number] 03/11/2015 14:49:00 Document Registration [id number] 03/11/2015 14:48:00 Document Registration [id number] 03/11/2015 14:48:00 Document Registration [id number] 03/11/2015 14:47:00 Document Registration [id number] 03/11/2015 14:47:00 Document Registration [id number] 03/11/2015 14:47:00 Document Registration [id number] 10/31/2014 22:49:00 Document Registration [id number] 07/16/2014 00:00:00 Document Registration [id number] 08/19/2012 00:02:00 Document Registration [id number] 03/17/2012 12:32:00 Document Registration [id number] 02/22/2012 07:51:00 Document Registration [id number] 01/06/2012 12:15:00 Document Registration [id number] 07/23/2011 14:38:00 Document Registration [id number] 05/19/2011 10:32:00 Document Registration [id number] 01/24/2011 08:29:00 Document Registration [id number] 07/18/2010 18:45:00 Document Registration [id number] 12/19/2009 08:50:00 Document Registration [id number] 11/06/2009 12:08:00 Document Registration [id number] 11/05/2009 08:36:00 Document Registration [id number] 08/11/2016 08:22:00 2015 14:53:00 PAZ Morrison MD, [facility]
[2017-05-27 14:22] LABS: MYOGLOBIN SERUM 377.9 NG/ML (10.0-92.0)
--- NOTE | 2017-05-27 14:32 | Diagnostic Imaging Report ---
Portable upright radiograph of the chest. INDICATION: Chest pressure. FINDINGS: The heart is moderately enlarged. There is mild pulmonary vascular congestion with no focal infiltrate. No effusion or pneumothorax. The mediastinum and casper appear unremarkable. A large-bore venous catheter is again seen with the tip at the right atrium level. There is also an infusion port with the tip at the right atrium through the left subclavian vein. IMPRESSION: Cardiomegaly with mild vascular congestion. Dictated by: Dictated on workstation # [id number]
[2017-05-27] MEDS ORDERED: fentaNYL INJECTION 100 MCG/2 ML AMP IVP ONE ×2 (15:15→17:00)
[2017-05-27 15:53] LABS: INR 1.1 (0.8-1.4); PROTHROMBIN TIME PATIENT 13.9 SEC (12.2-14.7)
[2017-05-27 16:30] LABS: BILIRUBIN,URINE NEGATIVE (NEGATIVE); KETONES,URINE NEGATIVE (NEGATIVE); LEUKOCYTE ESTERASE ,URINE NEGATIVE (NEGATIVE); NITRITE,URINE NEGATIVE (NEGATIVE); PH,URINE 8 (5-9); PROTEIN,URINE 3+ (NEGATIVE); UROBILINOGEN,URINE NORMAL (NORMAL)
[2017-05-27 16:36] LABS: SQUAMOUS EPITHELIAL CELL,UR 0-2 /HPF
--- NOTE | 2017-05-27 18:16 | Diagnostic Imaging Report ---
INDICATION: Epigastric pain. COMPARISON: None. EXAMINATION: KUB and upright views of the abdomen were obtained. FINDINGS: Nonspecific gas-filled loops of small bowel without overt distention. This could represent an ileus. There is no free air. Mild constipation is seen throughout the colon. There is no free air. Cholecystectomy clips are present. Minimal amount of gas is seen within the stomach. IMPRESSION: 1. Small bowel ileus without overt obstruction. 2. No free air. 3. Constipation. Dictated by: Dictated on workstation # [id number]
--- NOTE | 2017-05-27 18:22 | ED Chest Pain ---
General Chief Complaint: Chest Pain Stated Complaint: SYNCOPE Nursing Triage Note: pt reports she has not felt well for 2 days. pt reports increase in fatigue and nausea. Pt states she had a syncopal episode while leaving a restaurant today after lunch. Pt reports increase in nausea and cp. Pt denies hitting head. Nursing Sepsis Screen: No Definite Risk Source: patient Exam Limitations: no limitations History of Present Illness Time seen by provider: 13:24 Initial Comments This 66, presents to the emergency room via EMS after having an episode of lightheadedness and developing chest pain. She was eating with her sister at a caf and suddenly felt lightheaded in the parking lot. She was assisted to the ground. She did not lose consciousness but was very weak. She then developed abdominal pain and chest pain with associated dyspnea. Patient has end-stage renal failure and received dialysis yesterday. She reports being constipated but she did have a big bowel movement after arriving to the emergency room. She reported no improvement with the bowel movement. Patient did not complain of chest pain to EMS but did complain of chest pain after arrival to the ER. Patient has been receiving wound care for right lower extremity wound. She complains of pain in this area but refuses to allow assessment as she does not want the dressings removed. She is presently on antibiotics for this wound. Allergies and Home Medications Allergies Coded Allergies: propoxyphene (Verified Allergy, Mild, DIZZINESS, 02/20/14) codeine (Verified Allergy, Unknown, CAN TAKE OXYCODONE, 02/20/14) esomeprazole (Verified Allergy, Unknown, 02/20/14) ketorolac (Verified Allergy, Unknown, PT TAKES ASPIRIN AT HOME, 02/20/14) levofloxacin (Verified Allergy, Unknown, 02/20/14) promethazine (Verified Allergy, Unknown, 02/20/14) Uncoded Allergies: TAPE (Adverse Reaction, Mild, RASH, 11/23/14) Home Medications Albuterol Sulfate 8.5 Gm Hfa.aer.ad, 2 PUFF INH Q4H PRN for SHORTNESS OF BREATH, (Reported) Aspirin 81 Mg Tablet.dr, 81 MG PO DAILY, (Reported) Budesonide/Formoterol Fumarate 10.2 Gm Hfa.aer.ad, 2 PUFF INH BID, (Reported) Cephalexin 500 Mg Capsule, 500 MG PO BID, #14 Prescribed by: VERNON FLORES on 08/24/16 1847 Clopidogrel Bisulfate 75 Mg Tablet, 75 MG PO HS, (Reported) Cyanocobalamin 50 Mcg Lozenge, 50 MCG PO DAILY, (Reported) Doxazosin Mesylate 4 Mg Tablet, 4 MG PO DAILY, (Reported) Ezetimibe 10 Mg Tablet, 10 MG PO HS, (Reported) Furosemide 40 Mg Tablet, 40 MG PO DAILY, (Reported) Gabapentin 300 Mg Capsule, 300 MG PO TID, (Reported) Gentamicin Sulfate 5 Ml Drops, 1 DROP OU Q6H PRN for ALLERGIES, (Reported) Ibuprofen 800 Mg Tablet, 800 MG PO BID PRN for PAIN, (Reported) Insulin Aspart 100 Unit/1 Ml Susp, SQ UD, (Reported) 201-250 = 2 UNITS 251-300 = 4 UNITS 301-350 = 6 UNITS 351-400 = 8 UNITS IF > THAN 400, CALL PHYSICIAN Insuln Asp Prt/Insulin Aspart 300 Units/3 Ml Solution, 10 UNITS SQ HS, (Reported ) Insuln Asp Prt/Insulin Aspart 300 Units/3 Ml Solution, 30 UNITS SC DAILY, ( Reported) Isosorbide Mononitrate 30 Mg Tab.er.24h, 15 MG PO HS, (Reported) TAKES 1/2 (30MG) TABLET Levothyroxine Sodium 50 Mcg Tablet, 50 MCG PO DAILY, (Reported) Lorazepam 0.5 Mg Tablet, 0.5 MG PO TID PRN for ANXIETY, (Reported) Metoprolol Succinate 200 Mg Tab.er.24h, 200 MG PO DAILY, (Reported) Montelukast Sodium 10 Mg Tablet, 10 MG PO HS, (Reported) Nitroglycerin 0.4 Mg Tab.subl, 0.4 MG SL UD PRN for CHEST PAIN, (Reported) PLACE 1 TABLET UNDER TONGUE EVERY 5 MINUTES X 3 DOSES NEEDED FOR CHEST PAIN Nystatin 15 Gm Powder, TOP BID PRN for RASH, (Reported) Omeprazole 40 Mg Capsule.dr, 40 MG PO DAILY, (Reported) Ondansetron HCl 4 Mg Tablet, 4 MG SL TID PRN for NAUSEA, (Reported) Oxycodone HCl/Acetaminophen 1 Each Tablet, 1 TAB PO Q6H PRN for PAIN, (Reported) Review of Systems Constitutional: no symptoms reported EENTM: No Symptoms Reported Respiratory: See HPI Cardiovascular: See HPI Gastrointestinal: See HPI Genitourinary: No Symptoms Reported Musculoskeletal: no symptoms reported Skin: no symptoms reported Psychiatric/Neurological: No Symptoms Reported Endocrine: No Symptoms Reported Hematologic/Lymphatic: No Symptoms Reported Past Tanlvhv-Hlemex-Hhnggh Hx Patient Social History Alcohol Use: Denies Use Recreational Drug Use: No Smoking Status: Never a Smoker 2nd Hand Smoke Exposure: No Recent Foreign Travel: No Contact w/Someone Who Travel: No Recent Infectious Disease Expo: No Recent Hopitalizations: Yes Physical Abuse: No Sexual Abuse: No Mistreated: No Fear: No Immunizations Up To Date Tetanus Booster (TDap): Unknown PED Vaccines UTD: Yes Date of Pneumonia Vaccine: Feb 04, 2011 Date of Influenza Vaccine: Jun 08, 2017 Seasonal Allergies Seasonal Allergies: Yes Surgeries History of Surgeries: Yes (gallbladder, hiatal hernia, back and eye surgery) Surgeries: Abdominal, Appendectomy, Arteriovenous Shunt, Cardiac, Coronary Stent, Dialysis, Eye Surgery, Gallbladder, Hysterectomy, Oophorectomy, Orthopedic, Vascular Surgery Respiratory History of Respiratory Disorde: Yes Respiratory Disorders: Asthma, COPD Currently Using CPAP: No Currently Using BIPAP: No Cardiovascular History of Cardiac Disorders: Yes Cardiac Disorders: Coronary Artery Disease, Hypertension Neurological History of Neurological Disord: Yes Neurological Disorders: Stroke Reproductive System Hx Reproductive Disorders: Yes Sexually Transmitted Disease: No HIV/AIDS: No 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 Genitourinary History of Genitourinary Disor: No Genitourinary Disorders: Renal Failure, Dialysis Gastrointestinal History of Gastrointestinal Di: Yes (SPASTIC COLON) Gastrointestinal Disorders: Gastroesophageal Reflux, Diverticulosis, Pancreatitis Musculoskeletal History of Musculoskeletal Dis: Yes (SCIATICA CHRONIC, RIGHT ARM FX 2015- CHRONIC RIGHT ARM PAIN ) Musculoskeletal Disorders: Arthritis, Fibromyalgia, Chronic Back Pain, Fractures Endocrine History of Endocrine Disorders: Yes Endocrine Disorders: Diabetes, Insulin dep, Hypothyroidsim HEENT History of HEENT Disorders: Yes HEENT Disorders: Cataract Cancer History of Cancer: No Psychosocial History of Psychiatric Problem: Yes (PANIC ATTACKS) Behavioral Health Disorders: Anxiety Suicide Risk Score: 0 Integumentary History of Skin or Integumenta: Yes (HX MRSA ) Blood Transfusions History of Blood Disorders: Yes (being treated by dr. rogel for low blood counts /ANEMIA) Adverse Reaction to a Blood Tr: No (does not want to receieve blood products) Family Medical History Family Medial History: Cancer 03 MOTHER (OVARIAN CANCER) Congestive heart failure 09 BROTHER ( OF CHF) DVT 09 SISTER FH: COPD (chronic obstructive pulmonary disease) 09 SISTER FH: bipolar disorder 09 BROTHER FH: emphysema 03 FATHER FHx: multiple sclerosis 09 BROTHER Family history: Cardiovascular disease 03 FATHER, Onset:Unknown Family history: Diabetes mellitus 03 MOTHER 09 BROTHER Family history: Hypertension 09 SISTER (ACTUALLY HAS LOW BLOOD PRESSURE NOT HIGH) Physical Exam Vital Signs Vital Sign - Last 12Hours Capillary Refill : Less Than 3 Seconds General Appearance: WD/WN, Mild Distress HEENT: PERRL/EOMI, Normal ENT Inspection Respiratory: Lungs Clear, Normal Breath Sounds, No Accessory Muscle Use, No Respiratory Distress Cardiovascular: Regular Rate, Rhythm, No Edema, No Murmur Gastrointestinal: Normal Bowel Sounds, Soft, Other (diffusely mildly uncomfortable with no focal tenderness) Extremity: Pedal Edema, Other (dressed wound on the right lower leg with surrounding erythema) Neurologic/Psychiatric: Alert, Oriented x3, No Motor/Sensory Deficits, 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 Mood is depressed) Skin: Normal Color, Warm/Dry, Erythema (of the lower legs bilaterally and especially around the dressed wound on the right lower extremity) Progress/Results/Core Measures Results/Orders Lab Results Laboratory Tests Test 05/27/17 13:48 05/27/17 15:30 05/27/17 16:23 05/27/17 17:09 Range/Units White Blood Count 3.0 L 4.3-11.0 10^3/uL Red Blood Count 3.25 L 4.35-5.85 10^6/uL Hemoglobin 10.1 L 11.5-16.0 G/DL Hematocrit 31 L 35-52 % Mean Corpuscular Volume 95 80-99 FL Mean Corpuscular Hemoglobin 31 25-34 PG Mean Corpuscular Hemoglobin Concent 33 32-36 G/DL Red Cell Distribution Width 12.4 10.0-14.5 % Platelet Count 101 L 130-400 10^3/uL Mean Platelet Volume 10.4 7.4-10.4 FL Neutrophils (%) (Auto) 71 42-75 % Lymphocytes (%) (Auto) 19 12-44 % Monocytes (%) (Auto) 7 0-12 % Eosinophils (%) (Auto) 2 0-10 % Basophils (%) (Auto) 0 0-10 % Neutrophils # (Auto) 2.2 1.8-7.8 X 10^3 Lymphocytes # (Auto) 0.6 L 1.0-4.0 X 10^3 Monocytes # (Auto) 0.2 0.0-1.0 X 10^3 Eosinophils # (Auto) 0.1 0.0-0.3 10^3/uL Basophils # (Auto) 0.0 0.0-0.1 10^3/uL Sodium Level 136 135-145 MMOL/L Potassium Level 4.1 3.6-5.0 MMOL/L Chloride Level 98 98-107 MMOL/L Carbon Dioxide Level 28 21-32 MMOL/L Anion Gap 10 5-14 MMOL/L Blood Urea Nitrogen 18 7-18 MG/DL Creatinine 3.02 H 0.60-1.30 MG/DL Estimat Glomerular Filtration Rate 16 BUN/Creatinine Ratio 6 Glucose Level 210 H 70-105 MG/DL Calcium Level 8.4 L 8.5-10.1 MG/DL Magnesium Level 1.9 1.8-2.4 MG/DL Total Bilirubin 0.4 0.1-1.0 MG/DL Aspartate Amino Transf (AST/SGOT) 13 5-34 U/L Alanine Aminotransferase (ALT/SGPT) 6 0-55 U/L Alkaline Phosphatase 77 40-136 U/L Myoglobin 377.9 H 10.0-92.0 NG/ML Troponin I < 0.30 < 0.30 <0.30 NG/ML Total Protein 6.4 6.4-8.2 GM/DL Albumin 3.2 3.2-4.5 GM/DL Prothrombin Time 13.9 12.2-14.7 SEC INR Comment 1.1 0.8-1.4 Activated Partial Thromboplast Time 31 24-35 SEC Urine Color YELLOW Urine Clarity CLEAR Urine pH 8 5-9 Urine Specific [place] 1.010 L 1.016-1.022 Urine Protein 3+ H NEGATIVE Urine Glucose (UA) 1+ H NEGATIVE Urine Ketones NEGATIVE NEGATIVE Urine Nitrite NEGATIVE NEGATIVE Urine Bilirubin NEGATIVE NEGATIVE Urine Urobilinogen NORMAL NORMAL MG/DL Urine Leukocyte Esterase NEGATIVE NEGATIVE Urine RBC (Auto) 3+ H NEGATIVE Urine RBC 25-50 H /HPF Urine WBC NONE /HPF Urine Squamous Epithelial Cells 0-2 /HPF Urine Crystals NONE /LPF Urine Bacteria NONE /HPF Urine Casts NONE /LPF Urine Mucus NEGATIVE /LPF Urine Culture Indicated NO My Orders Orders - VERNON COLLIER MD Cbc With Automated Diff (05/27/17 13:39) Magnesium (05/27/17 13:39) Chest 1 View, Ap/Pa Only (05/27/17 13:39) Ekg Tracing (05/27/17 13:39) Cardiac Profile 1 (05/27/17 13:39) Comprehensive Metabolic Panel (05/27/17 13:39) Myoglobin Serum (05/27/17 13:39) Protime With Inr (05/27/17 13:39) Partial Thromboplastin Time (05/27/17 13:39) O2 (05/27/17 13:39) Monitor-Rhythm Ecg Trace Only (05/27/17 13:39) Lipid Panel (05/28/17 06:00) Aspirin Chewable Tablet (Baby Aspirin Ch (05/27/17 13:45) Rx-Nitroglycerin Sl Tabs (Rx-Nitrostat S (05/27/17 13:45) Saline Lock/Iv-Start (05/27/17 13:39) Fentanyl Injection (Sublimaze Injection (05/27/17 15:15) Ua Culture If Indicated (05/27/17 15:36) Abdomen, Flat & Upright/Decub (05/27/17 16:26) Troponin I (05/27/17 16:27) Fentanyl Injection (Sublimaze Injection (05/27/17 17:00) Medications Given in ED Current Medications Medications Dose Ordered Sig/Adela Route Start Time Stop Time Status Last Admin Dose Admin Aspirin 324 mg ONCE ONCE PO 05/27/17 13:45 05/27/17 13:46 DC 05/27/17 13:56 324 MG Fentanyl Citrate 75 mcg ONCE ONCE IVP 05/27/17 15:15 05/27/17 15:16 DC 05/27/17 15:23 75 MCG Fentanyl Citrate 75 mcg ONCE ONCE IVP 05/27/17 17:00 05/27/17 17:01 DC 05/27/17 17:09 75 MCG Nitroglycerin 0.4 mg PRN PRN SL 05/27/17 13:45 05/27/17 13:57 0.4 MG Vital Signs/I&O Vital Sign - Last 12Hours 05/27/17 05/27/17 14:06 14:06 Temp 98.3 Pulse 75 Resp 18 B/P (MAP) 183/105 Pulse Ox 97 O2 Delivery Nasal Cannula Nasal Cannula O2 Flow Rate 2.00 2.0 Blood Pressure Mean: 131 Progress Note : Progress Note Patient was evaluated for chest pain and abdominal pain. Labs were relatively unremarkable. Abdominal x-ray suggested constipation and possibly ileus. Patient did have a bowel movement in the emergency room and reports she has medications at home to treat constipation. No focal tenderness was found on exam and patient was not felt to have an acute surgical abdomen. EKG and troponin revealed no acute cardiac problems. I discussed the case with Dr. Rogers, her primary flour worker. He reports that she has been catheterized numerous times in recent years and he does not feel there is any value to transfer or repeat catheterization unless she has a significant jump in troponin. He agrees that a 4 hour troponin would be sufficient to rule out a cardiac event. A 4 hour troponin was obtained and was normal. Patient was ultimately discharged home. Patient received 2 doses of fentanyl during the course of her ER stay to treat pain. Patient did receive a liter of IV fluids as initiated by EMS. ECG Initial ECG Impression Date: May 27, 2017 Initial ECG Impression Time: 13:56 Initial ECG Rate: 72 Initial ECG Rhythm: Normal Sinus Comment Sinus rhythm with no ST elevation or depression. First-degree AV block. No axis deviation. Diagnostic Imaging Diagonstic Imaging: Xray Plain Films/CT/US/NM/MRI: abdomen, pelvis Comments Abdominal x-ray viewed by me and report reviewed. See report below: NAME: MALVIN PRUETT [facility] REC#: [id number] PT STATUS: REG ER : 1950 PHYSICIAN: VERNON COLLIER MD ADMIT DATE: 05/27/17/ER Draft Date of Exam:05/27/17 ABDOMEN, FLAT & UPRIGHT/DECUB INDICATION: Epigastric pain. COMPARISON: None. EXAMINATION: KUB and upright views of the abdomen were obtained. FINDINGS: Nonspecific gas-filled loops of small bowel without overt distention. This could represent an ileus. There is no free air. Mild constipation is seen throughout the colon. There is no free air. Cholecystectomy clips are present. Minimal amount of gas is seen within the stomach. IMPRESSION: 1. Small bowel ileus without overt obstruction. 2. No free air. 3. Constipation. Dictated on workstation # [id number] Dict: 05/27/17 1806 Trans: 05/27/17 1815 [facility] [id number] Interpreted by: OSVALDO TABOR Imaging: Xray Plain Films/CT/US/NM/MRI: chest Comments NAME: MALVIN PRUETT [facility] REC#: [id number] PT STATUS: REG ER : 1950 PHYSICIAN: VERNON COLLIER MD ADMIT DATE: 05/27/17/ER Signed Date of Exam: 05/27/17 CHEST 1 VIEW, AP/PA ONLY Portable upright radiograph of the chest. INDICATION: Chest pressure. FINDINGS: The heart is moderately enlarged. There is mild pulmonary vascular congestion with no focal infiltrate. No effusion or pneumothorax. The mediastinum and casper appear unremarkable. A large-bore venous catheter is again seen with the tip at the right atrium level. There is also an infusion port with the tip at the right atrium through the left subclavian vein. IMPRESSION: Cardiomegaly with mild vascular congestion. Dictated by: Dictated on workstation # [id number] Dict: 05/27/17 1423 Trans: 05/27/17 1629 Interpreted by: SINDY BERTRAND MD Electronically signed by: SINDY BERTRAND MD 05/27/17 1629 Departure Impression Impression: Primary Impression: Chest pain Qualified Codes: R07.9 - Chest pain, unspecified Additional Impressions: Constipation Qualified Codes: K59.00 - Constipation, unspecified Generalized abdominal pain Disposition: HOME, SELF-CARE Condition: Improved Departure-Patient Inst. Decision time for Depature: 18:15 Referrals: ISABEL HUMPHREYS MD (PCP/Family) Primary Care Physician Patient Instructions: Chest Pain (DC), Constipation in Adults Add. Discharge Instructions: Use stool softeners or MiraLAX (polyethylene glycol) to treat your constipation. Drink plenty of liquids. Eat a diet high in fiber. Avoid excessive meats, cheeses, processed foods, and fast foods. Use your medications as prescribed. Follow-up with your flour worker and primary care provider soon as possible. Return to care if symptoms worsen. All discharge instructions reviewed with patient and/or family. Voiced understanding. Copy Copies To 1: ISABEL HUMPHREYS MD, JOSHUA T MD May 27, 2017 18:22
[2017-05-27 19:06] VITALS: BP 172/90
== END 2017-05-27 19:06 | disposition home or self-care (01) ==
LOC: EDUNIT# 13:21 → ER 13:24
DX: R07.9 Chest pain, unspecified (principal); K59.00 Constipation, unspecified; F41.9 Anxiety disorder, unspecified; E11.9 Type 2 diabetes mellitus without complications; K21.9 Gastro-esophageal reflux disease without esophagitis; I25.10 Atherosclerotic heart disease of native coronary artery without angina pectoris; I10 Essential (primary) hypertension; Z87.81 Personal history of (healed) traumatic fracture; Z90.710 Acquired absence of both cervix and uterus; Z86.73 Personal history of transient ischemic attack (TIA), and cerebral infarction without residual deficits; Z90.49 Acquired absence of other specified parts of digestive tract; Z95.5 Presence of coronary angioplasty implant and graft; Z95.828 Presence of other vascular implants and grafts; Z79.4 Long term (current) use of insulin; Z79.82 Long term (current) use of aspirin; Z80.41 Family history of malignant neoplasm of ovary; Z82.49 Family history of ischemic heart disease and other diseases of the circulatory system
CPT/HCPCS: 36415; 71010; 74020; 80053; 81000; 83735; 83874; 84484; 85025; 85610; 85730; 93005; 93041; 96374; 96376

== ENCOUNTER → 2017-05-27 | Outpatient (CLI) | payer MEDICARE, MEDICAID ==
[~2017-05-27] MED LIST changes: -METO-274 PO; +METO-395 PO; -METO200T32 PO; +METO200T4 PO
== END ==
LOC: WOUNDCARE 09:51
PROVIDERS: ATTEND Internal Medicine
DX: E11.622 Type 2 diabetes mellitus with other skin ulcer (principal); I87.311 Chronic venous hypertension (idiopathic) with ulcer of right lower extremity; N18.6 End stage renal disease
CPT/HCPCS: 99212

== ENCOUNTER 2017-06-01 10:07 | Emergency (ER) | payer MEDICARE, MEDICAID ==
[~2017-06-01] VITALS: Ht 167.6 cm; Wt 104.3 kg
--- OUTSIDE RECORDS SUMMARY | 2017-06-01 10:20 | XMS REPORT | Clinical Summary ---
Author Author [facility] Organization [facility] Address Unknown Phone Unavailable Care Team Providers Care Charge Accounts Audit Clerk Name Role Phone PCP Unavailable Source Comments Some departments are not documenting in the electronic medical record. If you do not see the information that you expected, contact Release of Information in the Health Information Management department at [phone] for further assistance in locating additional records.[facility] Allergies Not on File Current Medications [...]
--- OUTSIDE RECORDS SUMMARY | 2017-06-01 10:44 | XMS REPORT | Continuity of Care Document ---
Author Author [facility] of [facility] Address Unknown Phone Unavailable Allergies Active Description Code Type Severity Reaction Onset Reported/Identified Relationship to Patient Clinical Status Yes acetaminophen [id number] Drug Allergy Mild DIZZINESS 02/20/2014 Yes propoxyphene [id number] Drug Allergy Mild DIZZINESS 02/20/2014 Yes codeine [id number] Drug Allergy Unknown CAN TAKE OXYCOD 02/20/2014 Yes esomeprazole [id number] Drug Allergy Unknown N/A 02/20/2014 Yes ketorolac [id number] Drug Allergy Unknown PT TAKES ASPIRI 02/20/2014 Yes levofloxacin [id number] Drug Allergy Unknown N/A 02/20/2014 Yes promethazine [id number] Drug Allergy Unknown N/A 02/20/2014 Yes TAPE [...] E11.22 TYPE 2 DIABETES MELLITUS W DIABETIC BENCH HAND 08/05/1501 MALVIN PAYAN MD Ot E66.01 MORBID (SEVERE) OBESITY DUE TO EXCESS CA 08/05/1501 MALVIN PAYAN MD, Ot E83.42 HYPOMAGNESEMIA 08/05/1501 MALVIN PAYAN MD, Ot F32.9 MAJOR DEPRESSIVE DISORDER, SINGLE EPISOD 08/05/1501 MALVIN PAYAN MD, Ot F41.9 ANXIETY DISORDER, UNSPECIFIED 08/05/1501 ORA MD, MALVIN K Ot I12.9 HYPERTENSIVE CHRONIC KIDNEY DISEASE W ST 08/05/1501 MALVIN PAYAN MD Ot I25.10 ATHSCL HEART DISEASE OF [place] CORONARY 08/05/1501 MALVIN PAYAN MD Ot I65.23 OCCLUSION AND STENOSIS OF BILATERAL [place] 08/05/1501 MALVIN PAYAN MD Ot N18.9 CHRONIC KIDNEY DISEASE, UNSPECIFIED 08/05/1501 MALVIN PAYAN MD Ot Z68.41 BODY MASS INDEX (BMI) 40.0-44.9, ADULT 08/05/1501 MALVIN PAYAN MD Ot Z79.4 TANK CREWMEMBER (CURRENT) USE OF INSULIN 08/05/1501 MALVIN PAYAN MD, Ot Z79.899 OTHER JAIL (CURRENT) DRUG THERAPY 11/04/2009 [facility] [...] JURGEN B 300.00 AN AN[facility]ET[facility]NSPEC [facility].00 AN ANXIETY UNSPEC [...] NOS 07/26/2011 Ot 414.01 CORONARY ATHEROSCLEROSIS OF [place] CORON 07/26/2011 Ot 496 CHR AIRWAY OBSTRUCT [...] NOS 01/10/2012 Ot 414.01 CORONARY ATHEROSCLEROSIS OF [place] CORON 01/10/2012 Ot 530.81 ESOPHAGEAL REFLUX 01/10/2012 [...] NOS 02/23/2012 Ot 414.01 CORONARY ATHEROSCLEROSIS OF [place] CORON 02/23/2012 Ot 789.09 ABDOMINAL PAIN, OTHER [...] MARIE K Ot 414.01 CORONARY ATHEROSCLEROSIS OF [place] CORON 04/17/2013 JESSIKAAsh HUMMEL ANNE MARIE K [...] HUMPHREYS MD Ot 414.01 CORONARY ATHEROSCLEROSIS OF [place] CORON 09/09/2013 ISABEL HUMPHREYS MD R Ot [...] UNSPEC, W CHR KD ST 02/09/2014 ISABEL HUMPHRESY MD, Ot 414.01 CORONARY ATHEROSCLEROSIS OF [place] CORON 02/09/2014 ISABEL HUMPHREYS MD Ot 433.10 [...] INFARCT,IN 11/06/2014 Ot 414.01 CORONARY ATHEROSCLEROSIS OF [place] CORON 11/06/2014 Ot 427.31 ATRIAL FIBRILLATION 11/06/2014 [...] MD R Ot 414.01 CORONARY ATHEROSCLEROSIS OF [place] CORON 11/26/2014 ISABEL HUMPHREYS MD R Ot [...] MARSH, ISABEL R Ot 403.00 12/13/2014 JULIANN MRASH, ISABEL R Ot 414.01 12/13/2014 JULIANN MARSH, [...] DISEASE, STAGE IV (SEVERE 02/13/2015 ORA MARSH, MLAVIN Darden Ot 585.9 CHRONIC KIDNEY DISEASE, UNSPECIFIED 02/13/2015 ORA MARSH, MALVIN Darden Ot V12.54 PERSONAL HX OF TIA, CEREBRAL INFARCTION 02/13/2015 ORA MARSH, MALVIN Darden Ot V58.69 OTH MED,LT,CURRENT USE 02/20/2015 ORA MARSH, MALVIN Darden Ot 244.9 02/20/2015 ORA MARSH, MALVIN K Ot 250.00 02/20/2015 ORA AMRSH, MALVIN K Ot 272.4 02/20/2015 ORA MARSH, [...] ISABEL R Ot 311 03/11/2015 MARIBELL MARAVILLA COMPLIANCE NURSE Ot 790.6 03/11/2015 JULIANN MARSH, ISABEL R Ot 285.9 03/11/2015 JULIANN MARSH, ISABEL R Ot 460 03/11/2015 MARIBELL MARAVILLA L COMPLIANCE NURSE Ot 272.4 03/11/2015 MARIBELL MARAVILLA L COMPLIANCE NURSE Ot 401.9 03/11/2015 MARIBELL MARAVILLA L COMPLIANCE NURSE Ot 414.00 03/11/2015 JULIANN MARSH, ISABEL R [...] MALVIN Adelso Ot 250.00 03/11/2015 ORA MARSH, MALVNI Adelso Ot 272.4 03/11/2015 ORA MARSH, MALVIN [...] ISABEL R Ot 311 04/26/2015 MARIBELL MARAVILLA COMPLIANCE NURSE Ot 790.6 04/26/2015 JULIANN MARSH, ISABEL R Ot 285.9 04/26/2015 JULIANN MARSH, ISABEL R Ot 460 04/26/2015 MARIBELL MARAVILLA COMPLIANCE NURSE Ot 272.4 04/26/2015 MARIBELL MARAVILLA COMPLIANCE NURSE Ot 401.9 04/26/2015 LEONIDES MARAVILLAHER Dustin COMPLIANCE NURSE Ot 414.00 04/26/2015 JULIANN MARSH, ISABEL R [...] ISABEL R Ot 311 06/13/2015 MARIBELL MARAVILLA COMPLIANCE NURSE Ot 790.6 06/13/2015 JULIANN MARSH, ISABEL R Ot 285.9 06/13/2015 JULIANN MARSH, ISABEL R Ot 460 06/13/2015 MARIBELL MARAVILLA COMPLIANCE NURSE Ot 272.4 06/13/2015 MARIBELL MARAVILLA COMPLIANCE NURSE Ot 401.9 06/13/2015 MARIBELL MARAVILLA COMPLIANCE NURSE Ot 414.00 06/13/2015 JULIANN MARSH, ISABEL R [...] Darden Ot Z79.4 06/13/2015 ORA MARSH, MALVIN Dardne Ot Z79.899 06/14/2015 JULIANN MARSH, ISABEL Zaidi Ot E03.9 HYPOTHYROIDISM, UNSPECIFIED 06/14/2015 JULIANN MARSH, ISABEL Zaidi Ot E11.9 TYPE 2 DIABETES MELLITUS WITHOUT COMPLIC 06/14/2015 JULIANN MARSH, ISABEL Zaidi Ot E78.5 HYPERLIPIDEMIA, UNSPECIFIED 06/14/2015 JULIANN MARSH, ISABEL R Ot I12.9 HYPERTENSIVE CHRONIC KIDNEY DISEASE W ST 06/14/2015 JULIANN MARSH, ISABEL R Ot I25.10 ATHSCL HEART DISEASE OF [place] CORONARY 06/14/2015 JULIANN MARSH, ISABEL Zaidi Ot I25.2 OLD MYOCARDIAL INFARCTION 06/14/2015 JULIANN MARSH, ISABEL Zaidi Ot N18.4 CHRONIC KIDNEY DISEASE, STAGE 4 (SEVERE) 06/14/2015 ISABEL HUMPHREYS MD Ot R00.2 PALPITATIONS 06/14/2015 JULIANN MARSH, ISABEL Zaidi Ot R07.9 CHEST PAIN, UNSPECIFIED 06/14/2015 JULIANN MARSH, ISABEL Zaidi Ot Z79.4 TANK CREWMEMBER (CURRENT) USE OF INSULIN 07/15/2015 ORA MARSH, [...] ISABEL R Ot 311 07/15/2015 MARIBELL MARAVILLA COMPLIANCE NURSE Ot 790.6 07/15/2015 JULIANN MARSH, ISABEL R Ot 285.9 07/15/2015 JULIANN MARSH, ISABEL R Ot 460 07/15/2015 MARIBELL MARAVILLA COMPLIANCE NURSE Ot 272.4 07/15/2015 MARIBELL MARAVILLA COMPLIANCE NURSE Ot 401.9 07/15/2015 MARIBELL MARAVILLA COMPLIANCE NURSE Ot 414.00 07/15/2015 JULIANN MARSH, ISABEL R [...] MARSH, MALVIN K Ot E83.42 07/15/2015 ORA MRASH, MALVIN K Ot F32.9 07/15/2015 ORA MARSH, [...] NICOLETTE MARSH, DULCE Ot J44.9 07/22/2015 NICOLETTE MARHS, DULCE Ot N18.3 08/06/2015 ORA MARSH, MALVIN [...] ISABEL R Ot 311 08/06/2015 MARIBELL MARAVILLA COMPLIANCE NURSE Ot 790.6 08/06/2015 JULIANN MARSH, ISABEL R Ot 285.9 08/06/2015 JULIANN MARSH, ISABEL R Ot 460 08/06/2015 MARIBELL MARAVILLA COMPLIANCE NURSE Ot 272.4 08/06/2015 MARIBELL MARAVILLA COMPLIANCE NURSE Ot 401.9 08/06/2015 MARIBELL MARAVILLA COMPLIANCE NURSE Ot 414.00 08/06/2015 JULIANN MARSH, ISABEL R [...] ALI FACP CCDS Ot I10 08/06/2015 DAVE MRASH FACC, ALI FACP CCDS Ot I25.10 08/06/2015 [...] JULIANN MARSH, ISABEL R Ot 311 09/02/2015 MARBIELL MARAVILLA COMPLIANCE NURSE Ot 790.6 09/02/2015 JULIANN MARSH, ISABEL R Ot 285.9 09/02/2015 JULIANN MARSH, ISABEL R Ot 460 09/02/2015 MARIBELL MARAVILLA COMPLIANCE NURSE Ot 272.4 09/02/2015 MARIBELL MARAVILLA COMPLIANCE NURSE Ot 401.9 09/02/2015 MARIBELL MARAVILLA COMPLIANCE NURSE Ot 414.00 09/02/2015 JULIANN MARSH, ISABEL R [...] NICOLETTE MARSH, DULCE Ot 403.90 09/02/2015 NICOLETTE MRASH, DULCE Ot 585.3 09/02/2015 ORA MARSH, MALVIN [...] E11.22 TYPE 2 DIABETES MELLITUS W DIABETIC BENCH HAND 09/04/2015 MALVIN PAYAN MD, Ot E66.01 MORBID (SEVERE) OBESITY DUE TO EXCESS CA 09/04/2015 MALVIN PAYAN MD, Ot E83.42 HYPOMAGNESEMIA 09/04/2015 MALVIN PAYAN MD, Ot F32.9 MAJOR DEPRESSIVE DISORDER, SINGLE EPISOD 09/04/2015 MALVIN PAYAN MD, Ot F41.9 ANXIETY DISORDER, UNSPECIFIED 09/04/2015 MALVIN PAYAN MD, Ot I12.9 HYPERTENSIVE CHRONIC KIDNEY DISEASE W ST 09/04/2015 MALVIN PAYAN MD, Ot I25.10 ATHSCL HEART DISEASE OF [place] CORONARY 09/04/2015 MALVIN PAYAN MD, Ot I65.23 [...] ADULT 09/04/2015 MALVIN PAYAN MD, Ot Z79.4 JAIL (CURRENT) USE OF INSULIN 09/04/2015 MALVIN PAYAN MD, Ot Z79.899 OTHER TANK CREWMEMBER (CURRENT) DRUG THERAPY 09/09/2015 MALVIN PAYAN MD, [...] ORA MARSH, MALVIN Darden Ot N18.9 09/09/2015 OAR MARSH, MALVIN K Ot V58.67 09/09/2015 ORA [...] MARSH, MALVIN Darden Ot Z68.41 09/24/2015 ORA MRASH, MALVIN Darden Ot Z79.4 09/24/2015 ORA MARSH, MALVIN Darden Ot Z79.899 10/22/2015 Ot 414.01 10/22/2015 Ot 272.4 10/22/2015 Ot V58.69 10/22/2015 Ot 414.00 10/22/2015 JULIANN MARSH, ISABEL R Ot 300.00 10/22/2015 JULIANN MARSH, ISABEL R Ot 311 10/22/2015 TAIWO MARIBELL L COMPLIANCE NURSE Ot 790.6 10/22/2015 JULIANN MARSH, ISABEL R Ot 285.9 10/22/2015 JULIANN MARSH, ISABEL R Ot 460 10/22/2015 LEONIDES MARAVILLAHER L COMPLIANCE NURSE Ot 272.4 10/22/2015 TAIWO MARIBELL L COMPLIANCE NURSE Ot 401.9 10/22/2015 TAIWO MARIBELL L COMPLIANCE NURSE Ot 414.00 10/22/2015 JULIANN MARSH, ISABEL R [...] R Ot 311 11/04/2015 JOSE ARMANDOMARIBELL SALEH COMPLIANCE NURSE Ot 790.6 11/04/2015 JULIANN MARSH, ISABEL R Ot 285.9 11/04/2015 JULIANN MARSH, ISABEL R Ot 460 11/04/2015 JOSE ARMANDOMARIBELL SALEH COMPLIANCE NURSE Ot 272.4 11/04/2015 TAIWOMARIBELL COMPLIANCE NURSE Ot 401.9 11/04/2015 JOSE ARMANDOMARIBELL SALEH L COMPLIANCE NURSE Ot 414.00 11/04/2015 JULIANN MARSH, ISABEL R [...] FACC, ALI FACP CCDS Ot J44.9 11/04/2015 DAEV MARSH FACC, ALI FACP CCDS Ot N18.9 11/04/2015 DAVE MARSH FACC, ALI FACP CCDS Ot R00.2 11/04/2015 DAVE MARSH FACC, ALI FACP CCDS Ot D63.1 11/04/2015 DAVE MARSH FACC, ALI FACP CCDS Ot E11.9 11/04/2015 DAEV MARSH FACC, ALI FACP CCDS Ot I25.10 11/04/2015 DAVE MARSH FACC, ALI FACP CCDS Ot I65.23 11/04/2015 DAVE MARSH FACC, ALI FACP CCDS Ot I73.9 11/04/2015 DAVE MARSH FACC, ALI FACP CCDS Ot J43.8 11/04/2015 DAVE MARSH FACC, ALI FACP CCDS Ot R00.2 11/11/2015 DAVE MARSH FACC, ALI FACP CCDS Ot E11.21 11/11/2015 DAVE MARSH FACC, ALI FACP CCDS Ot I25.10 11/11/2015 [facility] FAC, ALI FACP CCDS Ot I65.23 11/11/2015 [facility], ALI FACP CCDS Ot I73.9 11/11/2015 [facility], ALI FACP CCDS Ot J44.9 11/11/2015 [facility], ALI FACP CCDS Ot N18.9 11/11/2015 [facility], ALI FACP CCDS Ot R00.2 11/11/2015 [facility], ALI FACP CCDS Ot D63.1 11/11/2015 [facility], ALI FACP CCDS Ot E11.9 11/11/2015 [facility], ALI FACP CCDS Ot I25.10 11/11/2015 [facility], ALI FACP CCDS Ot I65.23 11/11/2015 [facility], ALI FACP CCDS Ot I73.9 11/11/2015 [facility], ALI FACP CCDS Ot J43.8 11/11/2015 [facility], ALI FACP CCDS Ot R00.2 11/18/2015 Ot 414.01 11/18/2015 Ot 272.4 11/18/2015 Ot V58.69 11/18/2015 Ot 414.00 11/18/2015 JULIANN MARSH, ISABEL R Ot 300.00 11/18/2015 JULIANN MARSH, ISABEL R Ot 311 11/18/2015 MARIBELL MARAVILLA L COMPLIANCE NURSE Ot 790.6 11/18/2015 JULIANN MARSH, ISABEL R Ot 285.9 11/18/2015 JULIANN MARSH, ISABEL R Ot 460 11/18/2015 MARIBELL MARAVILLA L COMPLIANCE NURSE Ot 272.4 11/18/2015 MARIBELL MARAVILLA L COMPLIANCE NURSE Ot 401.9 11/18/2015 MARIBELL MARAVILLA L COMPLIANCE NURSE Ot 414.00 11/18/2015 JULIANN MARSH, ISABEL R [...] MALVIN K Ot Z79.899 11/18/2015 DAVE MARSH [facility], ALI FACP CCDS Ot E11.21 11/18/2015 DAVE MARSH FACC, ALI FACP CCDS Ot I25.10 11/18/2015 DAVE MARSH FAC, ALI FACP CCDS Ot I65.23 11/18/2015 DAVE MARSH FAC, ALI FACP CCDS Ot I73.9 11/18/2015 DAVE MARSH FAC, ALI FACP CCDS Ot J44.9 11/18/2015 DAVE MARSH [facility], ALI FACP CCDS Ot N18.9 11/18/2015 DAVE MARSH [facility], ALI FACP CCDS Ot R00.2 11/18/2015 DAVE MARSH [facility], ALI FACP CCDS Ot D63.1 11/18/2015 DAVE MARSH [facility], ALI FACP CCDS Ot E11.9 11/18/2015 DAVE MD [facility], ALI FACP CCDS Ot I25.10 11/18/2015 DAVE MARSH [facility], ALI FACP CCDS Ot I65.23 11/18/2015 DAVE MARSH [facility], ALI FACP CCDS Ot I73.9 11/18/2015 DAVE MD [facility], ALI FACP CCDS Ot J43.8 11/18/2015 DAVE MARSH [facility], ALI FACP CCDS Ot R00.2 11/18/2015 [...] E11.22 TYPE 2 DIABETES MELLITUS W DIABETIC BENCH HAND 12/04/2015 MALVIN PAYAN MD Ot E66.01 MORBID [...] Darden Ot I25.10 ATHSCL HEART DISEASE OF [place] CORONARY 12/04/2015 ORA MARSH, MALVIN Darden Ot I65.23 OCCLUSION AND STENOSIS OF BILATERAL [place] 12/04/2015 ORA MARSH, MALVIN Darden Ot N18.9 CHRONIC KIDNEY DISEASE, UNSPECIFIED 12/04/2015 ORA MARSH, MALVIN Darden Ot Z68.41 BODY MASS INDEX (BMI) 40.0-44.9, ADULT 12/04/2015 ORA MARSH, MALVIN Darden Ot Z79.4 JAIL (CURRENT) USE OF INSULIN 12/04/2015 ORA MARSH, MALVIN Darden Ot Z79.899 OTHER TANK CREWMEMBER (CURRENT) DRUG THERAPY 12/12/2015 ORA MARSH, MALVIN [...] CCDS Ot I25.10 ATHSCL HEART DISEASE OF [place] CORONARY 12/24/2015 DAVE MARSH FACC, ALI FACP [...] UNSPECIFIED 01/14/2016 Ot 414.01 CORONARY ATHEROSCLEROSIS OF [place] CORON 01/14/2016 Ot 272.4 HYPERLIPIDEMIA NEC/NOS 01/14/2016 Ot V58.69 OTH MED,LT,CURRENT USE 01/14/2016 Ot 414.00 CORON ATHEROSCLER NOS TYPE VESSEL, NATIV 01/14/2016 ISABEL HUMPHREYS MD Ot 300.00 ANXIETY STATE NOS 01/14/2016 ISABEL HUMPHREYS MD Ot 311 DEPRESSIVE DISORDER NEC 01/14/2016 MARIBELL MARAVILLA COMPLIANCE NURSE Ot 790.6 ABN BLOOD CHEMISTRY NEC 01/14/2016 ISABEL HUMPHREYS MD Ot 285.9 ANEMIA NOS 01/14/2016 SEGLIE MD, ISABEL R Ot 460 ACUTE NASOPHARYNGITIS 01/14/2016 JOSE ARMANDOMARIBELL SALEH Dustin COMPLIANCE NURSE Ot 272.4 HYPERLIPIDEMIA NEC/NOS 01/14/2016 MARIBELL MARAVILLA COMPLIANCE NURSE Ot 401.9 HYPERTENSION NOS 01/14/2016 MARIBELL MARAVILLA COMPLIANCE NURSE Ot 414.00 CORON ATHEROSCLER NOS TYPE VESSEL, [...] CCDS Ot I25.10 ATHSCL HEART DISEASE OF [place] CORONARY 01/14/2016 DAVE MARSH FACC, ALI FACP CCDS Ot J43.8 OTHER EMPHYSEMA 01/14/2016 DULCE WILL MD Ot E11.9 TYPE 2 DIABETES MELLITUS WITHOUT COMPLIC 01/14/2016 DULCE WILL MD Ot E66.9 OBESITY, UNSPECIFIED 01/14/2016 DULCE WILL MD Ot I12.9 HYPERTENSIVE CHRONIC KIDNEY DISEASE W ST 01/14/2016 DULCE WILL MD Ot I25.10 ATHSCL HEART DISEASE OF [place] CORONARY 01/14/2016 DULCE WILL MD Ot J44.9 [...] CCDS Ot I25.10 ATHSCL HEART DISEASE OF [place] CORONARY 01/14/2016 DAVE MARSH FACC, ALI FACP [...] CCDS Ot I25.10 ATHSCL HEART DISEASE OF [place] CORONARY 01/14/2016 DAVE MARSH FACC, ALI FACP [...] E11.22 TYPE 2 DIABETES MELLITUS W DIABETIC BENCH HAND 01/14/2016 MALVIN PAYAN MD Ot E66.01 MORBID (SEVERE) OBESITY DUE TO EXCESS CA 01/14/2016 MALVIN PAYAN MD Ot E83.42 HYPOMAGNESEMIA 01/14/2016 MALVIN PAYAN MD, Ot F32.9 MAJOR DEPRESSIVE DISORDER, SINGLE EPISOD 01/14/2016 MALVIN PAYAN MD Ot F41.9 ANXIETY DISORDER, UNSPECIFIED 01/14/2016 MALVIN PAYAN MD, Ot I12.9 HYPERTENSIVE CHRONIC KIDNEY DISEASE W ST 01/14/2016 MALVIN PAYAN MD, Ot I25.10 ATHSCL HEART DISEASE OF [place] CORONARY 01/14/2016 MALVIN PAYAN MD Ot I65.23 OCCLUSION AND STENOSIS OF BILATERAL [place] 01/14/2016 MALVIN PAYAN MD Ot N18.9 CHRONIC KIDNEY DISEASE, UNSPECIFIED 01/14/2016 MALVIN PAYAN MD Ot Z68.41 BODY MASS INDEX (BMI) 40.0-44.9, ADULT 01/14/2016 MALVIN PAYAN MD Ot Z79.4 TANK CREWMEMBER (CURRENT) USE OF INSULIN 01/14/2016 MALVIN PAYAN MD Ot Z79.899 OTHER JAIL (CURRENT) DRUG THERAPY 01/14/2016 DULCE WILL MD [...] UNSPECIFIED 01/14/2016 Ot 414.01 CORONARY ATHEROSCLEROSIS OF [place] CORON 01/14/2016 Ot 272.4 HYPERLIPIDEMIA NEC/NOS 01/14/2016 Ot V58.69 OTH MED,LT,CURRENT USE 01/14/2016 Ot 414.00 CORON ATHEROSCLER NOS TYPE VESSEL, NATIV 01/14/2016 ISABEL HUMPHREYS MD R Ot 300.00 ANXIETY STATE NOS 01/14/2016 ISABEL HUMPHREYS MD R Ot 311 DEPRESSIVE DISORDER NEC 01/14/2016 MARIBELL MARAVILLA COMPLIANCE NURSE Ot 790.6 ABN BLOOD CHEMISTRY NEC 01/14/2016 ISABEL HUMPHREYS MD R Ot 285.9 ANEMIA NOS 01/14/2016 ISABEL HUMPHREYS MD R Ot 460 ACUTE NASOPHARYNGITIS 01/14/2016 MARIBELL MARAVILLA COMPLIANCE NURSE Ot 272.4 HYPERLIPIDEMIA NEC/NOS 01/14/2016 MARIBELL MARAVILLA L COMPLIANCE NURSE Ot 401.9 HYPERTENSION NOS 01/14/2016 MARIBELL MARAVILLA COMPLIANCE NURSE Ot 414.00 CORON ATHEROSCLER NOS TYPE VESSEL, [...] CCDS Ot I25.10 ATHSCL HEART DISEASE OF [place] CORONARY 01/14/2016 EARL ACOSTA MD, FACC FACP CCDS Ot J43.8 OTHER EMPHYSEMA 01/14/2016 DULCE WILL MD Ot E11.9 TYPE 2 DIABETES MELLITUS WITHOUT COMPLIC 01/14/2016 DULCE WILL MD Ot E66.9 OBESITY, UNSPECIFIED 01/14/2016 NICOLETTE MARSH, DULCE Ot I12.9 HYPERTENSIVE CHRONIC KIDNEY DISEASE W ST 01/14/2016 NICOLETTE MARSH, DULCE Ot I25.10 ATHSCL HEART DISEASE OF [place] CORONARY 01/14/2016 NICOLETTE MARSH, DULCE Ot J44.9 [...] CCDS Ot I25.10 ATHSCL HEART DISEASE OF [place] CORONARY 01/14/2016 DAVE MARSH FACC, EARL FACP CCDS Ot I65.23 OCCLUSION AND STENOSIS OF BILATERAL [place] 01/14/2016 DAVE MARSH FACC, ALI FACP CCDS Ot I73.9 PERIPHERAL VASCULAR DISEASE, UNSPECIFIED 01/14/2016 DAVE MARSH FACC, ALI FACP CCDS Ot J44.9 CHRONIC OBSTRUCTIVE PULMONARY DISEASE, U 01/14/2016 DAVE MARHS FACC, EARL FACP CCDS Ot N18.9 CHRONIC KIDNEY DISEASE, UNSPECIFIED 01/14/2016 DAVE MARSH FACC, ALI FACP CCDS Ot R00.2 PALPITATIONS 01/14/2016 DAVE MARSH FACC, ALI FACP CCDS Ot D63.1 ANEMIA IN CHRONIC KIDNEY DISEASE 01/14/2016 DAVE MARSH FACC, ALI FACP CCDS Ot E11.9 TYPE 2 DIABETES MELLITUS WITHOUT COMPLIC 01/14/2016 DAVE MARSH FACC, ALI FACP CCDS Ot I25.10 ATHSCL HEART DISEASE OF [place] CORONARY 01/14/2016 DAVE MARSH FACC, ALI FACP [...] E11.22 TYPE 2 DIABETES MELLITUS W DIABETIC BENCH HAND 01/14/2016 MALVIN PAYAN MD Ot E66.01 MORBID (SEVERE) OBESITY DUE TO EXCESS CA 01/14/2016 MALVIN PAYAN MD Ot E83.42 HYPOMAGNESEMIA 01/14/2016 MALVIN PAYAN MD Ot F32.9 MAJOR DEPRESSIVE DISORDER, SINGLE EPISOD 01/14/2016 MALVIN PAYAN MD Ot F41.9 ANXIETY DISORDER, UNSPECIFIED 01/14/2016 MALVIN PAYAN MD Ot I12.9 HYPERTENSIVE CHRONIC KIDNEY DISEASE W ST 01/14/2016 MALVIN PAYAN MD Ot I25.10 ATHSCL HEART DISEASE OF [place] CORONARY 01/14/2016 MALVIN PAYAN MD Ot I65.23 OCCLUSION AND STENOSIS OF BILATERAL [place] 01/14/2016 MALVIN PAYAN MD Ot N18.9 CHRONIC KIDNEY DISEASE, UNSPECIFIED 01/14/2016 MALVIN PAYAN MD Ot Z68.41 BODY MASS INDEX (BMI) 40.0-44.9, ADULT 01/14/2016 MALVIN PAYAN MD Ot Z79.4 TANK CREWMEMBER (CURRENT) USE OF INSULIN 01/14/2016 MALVIN PAYAN MD, Ot Z79.899 OTHER TANK CREWMEMBER (CURRENT) DRUG THERAPY 01/14/2016 DULCE WILL MD, [...] R Ot I25.110 ATHSCL HEART DISEASE OF [place] COR ART W 01/17/2016 ISABEL HUMPHREYS MD [...] 01/17/2016 ISABEL HUMPHREYS MD R Ot Z79.4 TANK CREWMEMBER (CURRENT) USE OF INSULIN 01/17/2016 ISABEL HUMPHREYS [...] MD Ot I25.110 ATHSCL HEART DISEASE OF [place] COR ART W 01/18/2016 ISABEL HUMPHREYS MD [...] (SEVERE) 01/18/2016 ISABEL HUMPHREYS MD Ot Z79.4 JAIL (CURRENT) USE OF INSULIN 01/18/2016 ISABEL HUMPHREYS [...] MD Ot I25.110 ATHSCL HEART DISEASE OF [place] COR ART W 01/18/2016 ISABEL HUMPHREYS MD, [...] (SEVERE) 01/18/2016 ISABEL HUMPHREYS MD Ot Z79.4 JAIL (CURRENT) USE OF INSULIN 01/18/2016 ISABEL HUMPHREYS [...] MD Ot I25.110 ATHSCL HEART DISEASE OF [place] COR ART W 01/19/2016 ISABEL HUMPHREYS MD [...] (SEVERE) 01/19/2016 ISABEL HUMPHREYS MD Ot Z79.4 JAIL (CURRENT) USE OF INSULIN 01/19/2016 ISABEL HUMPHREYS [...] R Ot I25.110 ATHSCL HEART DISEASE OF [place] COR ART W 01/20/2016 ISABEL HUMPHREYS MD Ot I25.2 OLD MYOCARDIAL INFARCTION 01/20/2016 ISABEL HUMPHREYS MD R Ot I50.43 ACUTE ON CHRONIC COMBINED SYSTOLIC AND D 01/20/2016 ISABEL HUMPHREYS MD Ot I50.9 HEART FAILURE, UNSPECIFIED 01/20/2016 ISABEL HUMPHREYS MD Ot I65.23 OCCLUSION AND STENOSIS OF BILATERAL [place] 01/20/2016 ISBAEL HUMPHREYS MD R Ot J44.9 CHRONIC OBSTRUCTIVE [...] (SEVERE) 01/20/2016 ISABEL HUMPHREYS MD Ot Z79.4 TANK CREWMEMBER (CURRENT) USE OF INSULIN 01/20/2016 ISABEL HUMPHREYS [...] MD Ot I25.110 ATHSCL HEART DISEASE OF [place] COR ART W 01/20/2016 ISABEL HUMPHREYS MD [...] (SEVERE) 01/20/2016 ISABEL HUMPHREYS MD, Ot Z79.4 JAIL (CURRENT) USE OF INSULIN 01/20/2016 ISABEL HUMPHREYS [...] MD Ot I25.10 ATHSCL HEART DISEASE OF [place] CORONARY 01/20/2016 ISABEL HUMPHREYS MD Ot I25.110 ATHSCL HEART DISEASE OF [place] COR ART W 01/20/2016 ISABEL HUMPHREYS MD [...] (SEVERE) 01/20/2016 ISABEL HUMPHREYS MD, Ot Z79.4 JAIL (CURRENT) USE OF INSULIN 01/20/2016 ISABEL HUMPHREYS MD, Ot Z95.5 PRESENCE OF CORONARY ANGIOPLASTY IMPLANT 01/23/2016 DULCE WILL MD, Ot N18.3 CHRONIC KIDNEY DISEASE, STAGE 3 (MODERAT 01/23/2016 DUCLE WILL MD Ot R31.9 HEMATURIA, UNSPECIFIED 01/28/2016 MALVIN PAYAN MD, Ot D63.1 ANEMIA IN CHRONIC KIDNEY DISEASE 01/28/2016 MALVIN PAYAN MD, Ot E03.9 HYPOTHYROIDISM, UNSPECIFIED 01/28/2016 MALVIN PAYAN MD Ot E11.22 TYPE 2 DIABETES MELLITUS W DIABETIC BENCH HAND 01/28/2016 MALVIN PAYAN MD, Ot E66.01 MORBID (SEVERE) OBESITY DUE TO EXCESS CA 01/28/2016 MALVIN PAYAN MD, Ot E83.42 HYPOMAGNESEMIA 01/28/2016 MALVIN PAYAN MD, Ot F32.9 MAJOR DEPRESSIVE DISORDER, SINGLE EPISOD 01/28/2016 MALVIN PAYAN MD, Ot F41.9 ANXIETY DISORDER, UNSPECIFIED 01/28/2016 MALVIN PAYAN MD Ot I12.9 HYPERTENSIVE CHRONIC KIDNEY DISEASE W ST 01/28/2016 MALVIN PAYAN MD, Ot I25.10 ATHSCL HEART DISEASE OF [place] CORONARY 01/28/2016 MALVIN PAYAN MD Ot I65.23 OCCLUSION AND STENOSIS OF BILATERAL [place] 01/28/2016 MALVIN PAYAN MD Ot N18.9 CHRONIC KIDNEY DISEASE, UNSPECIFIED 01/28/2016 MALVIN PAYAN MD Ot Z68.41 BODY MASS INDEX (BMI) 40.0-44.9, ADULT 01/28/2016 MALVIN PAYAN MD Ot Z79.4 JAIL (CURRENT) USE OF INSULIN 01/28/2016 MALVIN PAYAN MD Ot Z79.899 OTHER TANK CREWMEMBER (CURRENT) DRUG THERAPY 02/25/2016 REJI MA MD, [...] UNSPECIFIED 02/29/2016 GUMARO HEBERT MD, Ot Z79.4 TANK CREWMEMBER (CURRENT) USE OF INSULIN 02/29/2016 GUMARO HEBERT [...] UNSPECIFIED 03/02/2016 GUMARO HEBERT MD, Ot Z79.4 JAIL (CURRENT) USE OF INSULIN 03/02/2016 GUMARO HEBERT [...] UNSPECIFIED 03/06/2016 GUMARO HEBERT MD, Ot Z79.4 TANK CREWMEMBER (CURRENT) USE OF INSULIN 03/06/2016 GUMARO HEBERT MD Ot Z95.5 PRESENCE OF CORONARY ANGIOPLASTY IMPLANT 03/06/2016 GUMARO HEBERT MD Ot Z99.2 DEPENDENCE ON RENAL DIALYSIS 03/10/2016 MALVIN PAYAN MD Ot D63.1 ANEMIA IN CHRONIC KIDNEY DISEASE 03/10/2016 MALVIN PAYAN MD Ot E03.9 HYPOTHYROIDISM, UNSPECIFIED 03/10/2016 MALVIN PAYAN MD Ot E11.22 TYPE 2 DIABETES MELLITUS W DIABETIC BENCH HAND 03/10/2016 MALVIN PAYAN MD Ot E66.01 MORBID (SEVERE) OBESITY DUE TO EXCESS CA 03/10/2016 MALVIN PAYAN MD Ot E83.42 HYPOMAGNESEMIA 03/10/2016 MALVIN PAYAN MD Ot F32.9 MAJOR DEPRESSIVE DISORDER, SINGLE EPISOD 03/10/2016 MALVIN PAYAN MD Ot F41.9 ANXIETY DISORDER, UNSPECIFIED 03/10/2016 MALVIN PAYAN MD Ot I12.9 HYPERTENSIVE CHRONIC KIDNEY DISEASE W ST 03/10/2016 MALVIN PAYAN MD Ot I25.10 ATHSCL HEART DISEASE OF [place] CORONARY 03/10/2016 MALVIN PAYAN MD, Ot I65.23 OCCLUSION AND STENOSIS OF BILATERAL [place] 03/10/2016 MALVIN PAYAN MD, Ot N18.9 CHRONIC KIDNEY DISEASE, UNSPECIFIED 03/10/2016 MALVIN PAYAN MD, Ot Z68.41 BODY MASS INDEX (BMI) 40.0-44.9, ADULT 03/10/2016 MALVIN PAYAN MD, Ot Z79.4 JAIL (CURRENT) USE OF INSULIN 03/10/2016 MALVIN PAYAN MD, Ot Z79.899 OTHER TANK CREWMEMBER (CURRENT) DRUG THERAPY 03/12/2016 REJI MA MD, [...] E11.22 TYPE 2 DIABETES MELLITUS W DIABETIC BENCH HAND 03/23/2016 MALVIN PAYAN MD, Ot E66.01 MORBID (SEVERE) OBESITY DUE TO EXCESS CA 03/23/2016 MALVIN PAYAN MD, Ot E83.42 HYPOMAGNESEMIA 03/23/2016 MALVIN PAYAN MD, Ot F32.9 MAJOR DEPRESSIVE DISORDER, SINGLE EPISOD 03/23/2016 MALVIN PAYAN MD, Ot F41.9 ANXIETY DISORDER, UNSPECIFIED 03/23/2016 MALVIN PAYAN MD, Ot I12.9 HYPERTENSIVE CHRONIC KIDNEY DISEASE W ST 03/23/2016 MALVIN PAYAN MD, Ot I25.10 ATHSCL HEART DISEASE OF [place] CORONARY 03/23/2016 MALVIN PAYAN MD, Ot I65.23 OCCLUSION AND STENOSIS OF BILATERAL [place] 03/23/2016 MALVIN PAYAN MD, Ot N18.9 CHRONIC KIDNEY DISEASE, UNSPECIFIED 03/23/2016 MALVIN PAYAN MD, Ot Z68.41 BODY MASS INDEX (BMI) 40.0-44.9, ADULT 03/23/2016 MALVIN PYAAN MD, Ot Z79.4 JAIL (CURRENT) USE OF INSULIN 03/23/2016 MALVIN PAYAN MD, Ot Z79.899 OTHER [place]AIL (CURRENT) DRUG THERAPY 03/25/2016 MALVIN PAYAN MD, Ot D63.1 ANEMIA IN CHRONIC KIDNEY DISEASE 03/25/2016 MALVIN PAYAN MD Ot E03.9 HYPOTHYROIDISM, UNSPECIFIED 03/25/2016 MALVIN PAYAN MD Ot E11.22 TYPE 2 DIABETES MELLITUS W DIABETIC BENCH HAND 03/25/2016 MALVIN PAYAN MD, Ot E66.01 MORBID (SEVERE) OBESITY DUE TO EXCESS CA 03/25/2016 MALVIN PAYAN MD, Ot E83.42 HYPOMAGNESEMIA 03/25/2016 MALVIN PAYAN MD, Ot F32.9 MAJOR DEPRESSIVE DISORDER, SINGLE EPISOD 03/25/2016 MALVIN PAYAN MD, Ot F41.9 ANXIETY DISORDER, UNSPECIFIED 03/25/2016 MALIVN PAYAN MD, Ot I12.9 HYPERTENSIVE CHRONIC KIDNEY DISEASE W ST 03/25/2016 MALVIN PAYAN MD, Ot I25.10 ATHSCL HEART DISEASE OF [place] CORONARY 03/25/2016 MALVIN PAYAN MD Ot I65.23 OCCLUSION AND STENOSIS OF BILATERAL [place] 03/25/2016 MALVIN PAYAN MD, Ot N18.9 CHRONIC KIDNEY DISEASE, UNSPECIFIED 03/25/2016 MALVIN PAYAN MD Ot Z68.41 BODY MASS INDEX (BMI) 40.0-44.9, ADULT 03/25/2016 MALVIN PAYAN MD, Ot Z79.4 TANK CREWMEMBER (CURRENT) USE OF INSULIN 03/25/2016 MALVIN PAYAN MD, Ot Z79.899 OTHER JAIL (CURRENT) DRUG THERAPY 04/23/2016 MALVIN PAYAN MD, Ot D63.1 ANEMIA IN CHRONIC KIDNEY DISEASE 04/23/2016 MALVIN PAYAN MD, Ot E03.9 HYPOTHYROIDISM, UNSPECIFIED 04/23/2016 MALVIN PAYAN MD, Ot E11.22 TYPE 2 DIABETES MELLITUS W DIABETIC BENCH HAND 04/23/2016 MALVIN PAYAN MD, Ot E66.01 MORBID (SEVERE) OBESITY DUE TO EXCESS CA 04/23/2016 MALVIN PAYAN MD, Ot E83.42 HYPOMAGNESEMIA 04/23/2016 MALVIN PAYAN MD, Ot F32.9 MAJOR DEPRESSIVE DISORDER, SINGLE EPISOD 04/23/2016 MALVIN PAYAN MD, Ot F41.9 ANXIETY DISORDER, UNSPECIFIED 04/23/2016 MALVIN PAYAN MD Ot I12.9 HYPERTENSIVE CHRONIC KIDNEY DISEASE W ST 04/23/2016 MALVIN PAYAN MD Ot I25.10 ATHSCL HEART DISEASE OF [place] CORONARY 04/23/2016 MALVIN PAYAN MD, Ot I65.23 OCCLUSION AND STENOSIS OF [place]ILATERAL [place] 04/23/2016 MALVIN PAYAN MD, Ot N18.9 CHRONIC KIDNEY DISEASE, UNSPECIFIED 04/23/2016 MALVIN PAYAN MD, Ot Z68.41 BODY MASS INDEX (BMI) 40.0-44.9, ADULT 04/23/2016 MALVIN PAYAN MD, Ot Z79.4 JAIL (CURRENT) USE OF INSULIN 04/23/2016 MALVIN PAYAN MD, Ot Z79.899 OTHER JAIL (CURRENT) DRUG THERAPY 05/07/2016 REJI MA MD, [...] K Ot I25.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 [place] COR ART W 05/20/2016 JESSIKA DO ANNE MARIE K Ot I51.7 CARDIOMEGALY 05/20/2016 JESSIKA DO, ANNE MARIE K Ot J44.9 CHRONIC OBSTRUCTIVE PULMONARY DISEASE, U 05/20/2016 JESSIKA DO, ANNE MARIE K Ot N18.6 END STAGE RENAL DISEASE 05/20/2016 JESSIKA DO ANNE MARIE K Ot R07.9 CHEST PAIN, UNSPECIFIED 05/20/2016 JESSIKA DO ANNE MARIE K Ot Z79.4 TANK CREWMEMBER (CURRENT) USE OF INSULIN 05/20/2016 JESSIKA DO ANNE MARIE K Ot Z79.82 JAIL (CURRENT) USE OF ASPIRIN 05/20/2016 JESSIKA DO ANNE MARIE K Ot Z79.899 OTHER TANK CREWMEMBER (CURRENT) DRUG THERAPY 05/20/2016 JESSIKA DO ANNE [...] K Ot I25.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 [place] COR ART W 05/21/2016 JESSIKA ANNE MARIE HUMMEL Ot I51.7 CARDIOMEGALY 05/21/2016 JESSIKA ANNE MARIE HUMMEL K Ot J44.9 CHRONIC OBSTRUCTIVE PULMONARY DISEASE, U 05/21/2016 JESSIKA GEORGE HUMMELA K Ot N18.6 END STAGE RENAL DISEASE 05/21/2016 JESSIKA GEORGE HUMMELA K Ot R07.9 CHEST PAIN, UNSPECIFIED 05/21/2016 JESSIKA GEORGE HUMMELA K Ot Z79.4 JAIL (CURRENT) USE OF INSULIN 05/21/2016 JESSIKA GEORGE HUMMELA K Ot Z79.82 JAIL (CURRENT) USE OF ASPIRIN 05/21/2016 JESSIKA ANNE MARIE HUMMEL K Ot Z79.899 OTHER TANK CREWMEMBER (CURRENT) DRUG THERAPY 05/21/2016 ANNE MARIE ROSEN DO K Ot Z95.5 PRESENCE OF CORONARY ANGIOPLASTY IMPLANT 05/21/2016 ANNE MARIE ROSEN DO K Ot Z99.2 DEPENDENCE ON RENAL DIALYSIS 05/27/2016 Ot 414.01 CORONARY ATHEROSCLEROSIS OF [place] CORON 05/27/2016 Ot 272.4 HYPERLIPIDEMIA NEC/NOS 05/27/2016 Ot V58.69 OTH MED,LT,CURRENT USE 05/27/2016 Ot 414.00 CORON ATHEROSCLER NOS TYPE VESSEL, NATIV 05/27/2016 JULIANN MARSH, ISABEL R Ot 300.00 ANXIETY STATE NOS 05/27/2016 ISABEL HUMPHREYS MD Ot 311 DEPRESSIVE DISORDER NEC 05/27/2016 MARIBELL MARAVILLA COMPLIANCE NURSE Ot 790.6 ABN BLOOD CHEMISTRY NEC 05/27/2016 JULIANN MARSH, ISABEL R Ot 285.9 ANEMIA NOS 05/27/2016 JULIANN MARSH, ISABEL R Ot 460 ACUTE NASOPHARYNGITIS 05/27/2016 MARIBELL MARAVILLA COMPLIANCE NURSE Ot 272.4 HYPERLIPIDEMIA NEC/NOS 05/27/2016 MARIBELL MARAVILLA COMPLIANCE NURSE Ot 401.9 HYPERTENSION NOS 05/27/2016 MARIBELL MARAVILLA COMPLIANCE NURSE Ot 414.00 CORON ATHEROSCLER NOS TYPE VESSEL, [...] CCDS Ot I25.10 ATHSCL HEART DISEASE OF [place] CORONARY 05/27/2016 DAVE MARSH FAC, ALI FACP CCDS Ot J43.8 OTHER EMPHYSEMA 05/27/2016 NICOLETTE MARSH, DULCE Ot E11.9 TYPE 2 DIABETES MELLITUS WITHOUT COMPLIC 05/27/2016 NICOLETTE MARSH, DULCE Ot E66.9 OBESITY, UNSPECIFIED 05/27/2016 NICOLETTE MARSH, DULCE Ot I12.9 HYPERTENSIVE CHRONIC KIDNEY DISEASE W ST 05/27/2016 NICOLETTE MARSH, DULCE Ot I25.10 ATHSCL HEART DISEASE OF [place] CORONARY 05/27/2016 NICOLETTE MARSH, DULCE Ot J44.9 [...] CCDS Ot I25.10 ATHSCL HEART DISEASE OF [place] CORONARY 05/27/2016 DAVE CHAVEZC, ALI FACP CCDS [...] DIABETES MELLITUS WITHOUT COMPLIC 05/27/2016 [facility] F[facility] CCDS Ot I25.10 ATHSCL HEART DISEASE OF [place] CORONARY 05/27/2016 DAVE CHAVEZ, ALI FACP CCDS [...] E11.22 TYPE 2 DIABETES MELLITUS W DIABETIC BENCH HAND 05/27/2016 MALVIN PAYAN MD, Ot E66.01 MORBID (SEVERE) OBESITY DUE TO EXCESS CA 05/27/2016 MALVIN PAYAN MD, Ot E83.42 HYPOMAGNESEMIA 05/27/2016 MALVIN PAYAN MD, Ot F32.9 MAJOR DEPRESSIVE DISORDER, SINGLE EPISOD 05/27/2016 MALVIN PAYAN MD, Ot F41.9 ANXIETY DISORDER, UNSPECIFIED 05/27/2016 MALVIN PAYAN MD, Ot I12.9 HYPERTENSIVE CHRONIC KIDNEY DISEASE W ST 05/27/2016 MALVIN PAYAN MD, Ot I25.10 ATHSCL HEART DISEASE OF [place] CORONARY 05/27/2016 MALVIN PAYAN MD, Ot I65.23 OCCLUSION AND STENOSIS OF BILATERAL [place] 05/27/2016 MALVIN PAYAN MD, Ot N18.9 CHRONIC KIDNEY DISEASE, UNSPECIFIED 05/27/2016 MALVIN PAYAN MD, Ot Z68.41 BODY MASS INDEX (BMI) 40.0-44.9, ADULT 05/27/2016 MALVIN PAYAN MD Ot Z79.4 JAIL (CURRENT) USE OF INSULIN 05/27/2016 MALVIN PAYAN MD, Ot Z79.899 OTHER TANK CREWMEMBER (CURRENT) DRUG THERAPY 05/28/2016 MARIBELL MARAVILLA COMPLIANCE NURSE Ot 272.4 HYPERLIPIDEMIA NEC/NOS 05/28/2016 MARIBELL MARAVILLA COMPLIANCE NURSE Ot 401.9 HYPERTENSION NOS 05/28/2016 MARIBELL MARAVILLA Ot 414.00 CORON ATHEROSCLER NOS TYPE VESSEL, NATIV 06/15/2016 MALVIN PAYAN MD Ot D63.1 ANEMIA IN CHRONIC KIDNEY DISEASE 06/15/2016 MALVIN PAYAN MD Ot E03.9 HYPOTHYROIDISM, UNSPECIFIED 06/15/2016 MALVIN PAYAN MD Ot E11.22 TYPE 2 DIABETES MELLITUS W DIABETIC BENCH HAND 06/15/2016 MALVIN PAYAN MD Ot E66.01 MORBID (SEVERE) OBESITY DUE TO EXCESS CA 06/15/2016 MALVIN PAYAN MD, Ot E83.42 HYPOMAGNESEMIA 06/15/2016 MALVIN PAYAN MD, Ot F32.9 MAJOR DEPRESSIVE DISORDER, SINGLE EPISOD 06/15/2016 MALVIN PAYAN MD, Ot F41.9 ANXIETY DISORDER, UNSPECIFIED 06/15/2016 MALVIN PAYAN MD Ot I12.9 HYPERTENSIVE CHRONIC KIDNEY DISEASE W ST 06/15/2016 MALVIN PAYAN MD Ot I25.10 ATHSCL HEART DISEASE OF [place] CORONARY 06/15/2016 MALVIN PAYAN MD Ot I65.23 OCCLUSION AND STENOSIS OF BILATERAL [place] 06/15/2016 MALVIN PAYAN MD Ot N18.9 CHRONIC KIDNEY DISEASE, UNSPECIFIED 06/15/2016 MALVIN PAYAN MD Ot Z68.41 BODY MASS INDEX (BMI) 40.0-44.9, ADULT 06/15/2016 MALVIN PAYAN MD Ot Z79.4 JAIL (CURRENT) USE OF INSULIN 06/15/2016 MALVIN PAYAN MD, Ot Z79.899 OTHER JAIL (CURRENT) DRUG THERAPY 07/01/2016 MALVIN PAYAN MD Ot D63.1 ANEMIA IN CHRONIC KIDNEY DISEASE 07/01/2016 MALVIN PAYAN MD Ot E03.9 HYPOTHYROIDISM, UNSPECIFIED 07/01/2016 MALVIN PAYAN MD Ot E11.22 TYPE 2 DIABETES MELLITUS W DIABETIC BENCH HAND 07/01/2016 MALVIN PAYAN MD Ot E66.01 MORBID (SEVERE) OBESITY DUE TO EXCESS CA 07/01/2016 MALVIN PAYAN MD Ot E83.42 HYPOMAGNESEMIA 07/01/2016 MALVIN PAYAN MD Ot F32.9 MAJOR DEPRESSIVE DISORDER, SINGLE EPISOD 07/01/2016 MALVIN PAYAN MD Ot F41.9 ANXIETY DISORDER, UNSPECIFIED 07/01/2016 MALVIN PAYAN MD Ot I12.9 HYPERTENSIVE CHRONIC KIDNEY DISEASE W ST 07/01/2016 MALVIN PAYAN MD, Ot I25.10 ATHSCL HEART DISEASE OF [place] CORONARY 07/01/2016 MALVIN PAYAN MD, Ot I65.23 OCCLUSION AND STENOSIS OF [place]IL[place] 07/01/2016 MALVIN PAYAN MD, Ot N18.9 CHRONIC KIDNEY DISEASE, UNSPECIFIED 07/01/2016 MALVIN PAYAN MD, Ot Z68.41 BODY MASS INDEX (BMI) 40.0-44.9, ADULT 07/01/2016 MALVIN PAYAN MD, Ot Z79.4 JAIL (CURRENT) USE OF INSULIN 07/01/2016 MALVIN PAYAN MD, Ot Z79.899 OTHER TANK CREWMEMBER (CURRENT) DRUG THERAPY 07/22/2016 MALVIN PAYAN MD, Ot D63.1 ANEMIA IN CHRONIC KIDNEY DISEASE 07/22/2016 MALVIN PAYAN MD, Ot E03.9 HYPOTHYROIDISM, UNSPECIFIED 07/22/2016 MALVIN PAYAN MD, Ot E11.22 TYPE 2 DIABETES MELLITUS W DIABETIC BENCH HAND 07/22/2016 MALVIN PAYAN MD, Ot E66.01 MORBID (SEVERE) OBESITY DUE TO EXCESS CA 07/22/2016 MALVIN PAYAN MD, Ot E83.42 HYPOMAGNESEMIA 07/22/2016 MALVIN PAYAN MD, Ot F32.9 MAJOR DEPRESSIVE DISORDER, SINGLE EPISOD 07/22/2016 MALVIN PAYAN MD, Ot F41.9 ANXIETY DISORDER, UNSPECIFIED 07/22/2016 MALVIN PAYAN MD, Ot I12.9 HYPERTENSIVE CHRONIC KIDNEY DISEASE W ST 07/22/2016 MALVIN PAYAN MD, Ot I25.10 ATHSCL HEART DISEASE OF [place] CORONARY 07/22/2016 MALVIN PAYAN MD, Ot I65.23 OCCLUSION AND STENOSIS OF [place]ATERAL [place] 07/22/2016 MALVIN PAYAN MD, Ot N18.9 CHRONIC KIDNEY DISEASE, UNSPECIFIED 07/22/2016 MALVIN PAYAN MD, Ot Z45.2 ENCOUNTER FOR ADJUSTMENT AND MANAGEMENT 07/22/2016 MALVIN PAYAN MD, Ot Z68.41 BODY MASS INDEX (BMI) 40.0-44.9, ADULT 07/22/2016 MALVIN PAYAN MD, Ot Z79.4 JAIL (CURRENT) USE OF INSULIN 07/22/2016 MALVIN PAYAN MD, Ot Z79.899 OTHER TANK CREWMEMBER (CURRENT) DRUG THERAPY 07/23/2016 Ot 272.4 HYPERLIPIDEMIA NEC/NOS 07/23/2016 Ot V58.69 OTH MED,LT,CURRENT USE 07/23/2016 Ot 414.00 CORON ATHEROSCLER NOS TYPE VESSEL, NATIV 07/23/2016 JULIANN MARSH, ISABEL R Ot 300.00 ANXIETY STATE NOS 07/23/2016 JULIANN MARSH ISABEL R Ot 311 DEPRESSIVE DISORDER NEC 07/23/2016 MARIBELL MARAVILLA COMPLIANCE NURSE Ot 790.6 ABN BLOOD CHEMISTRY NEC 07/23/2016 JONI HUMPHREYS MDYD R Ot 285.9 ANEMIA NOS 07/23/2016 JULIANN MARSH ISABEL R Ot 460 ACUTE NASOPHARYNGITIS 07/23/2016 MARIBELL MARAVILLA L COMPLIANCE NURSE Ot 272.4 HYPERLIPIDEMIA NEC/NOS 07/23/2016 TAIWO MARIBELL L COMPLIANCE NURSE Ot 401.9 HYPERTENSION NOS 07/23/2016 LEONIDES MARAVILLAHER L COMPLIANCE NURSE Ot 414.00 CORON ATHEROSCLER NOS TYPE VESSEL, [...] CCDS Ot I25.10 ATHSCL HEART DISEASE OF [place] CORONARY 07/23/2016 DAVE MARSH FACC, ALI FACP CCDS Ot J43.8 OTHER EMPHYSEMA 07/23/2016 DULCE WILL MD Ot E11.9 TYPE 2 DIABETES MELLITUS WITHOUT COMPLIC 07/23/2016 NICOLETTE MD, DULCE Ot E66.9 OBESITY, UNSPECIFIED 07/23/2016 NICOLETTE MARSH, DULCE Ot I12.9 HYPERTENSIVE CHRONIC KIDNEY DISEASE W ST 07/23/2016 NICOLETTE MARSH, DULCE Ot I25.10 ATHSCL HEART DISEASE OF [place] CORONARY 07/23/2016 NICOLETTE MARSH, DULCE Ot J44.9 [...] CCDS Ot I25.10 ATHSCL HEART DISEASE OF [place] CORONARY 07/23/2016 DAVE MARSH FACC, ALI FACP [...] CCDS Ot I25.10 ATHSCL HEART DISEASE OF [place] CORONARY 07/23/2016 DAVE MARSH FACC, ALI FACP [...] E11.22 TYPE 2 DIABETES MELLITUS W DIABETIC BENCH HAND 07/23/2016 ORA MARSH, MALVIN Darden Ot E66.01 MORBID (SEVERE) OBESITY DUE TO EXCESS CA 07/23/2016 MALVIN PAYAN MD Ot E83.42 HYPOMAGNESEMIA 07/23/2016 MALVIN PAYAN MD Ot F32.9 MAJOR DEPRESSIVE DISORDER, SINGLE EPISOD 07/23/2016 MALVIN PAYAN MD Ot F41.9 ANXIETY DISORDER, UNSPECIFIED 07/23/2016 MALVIN PAYAN MD Ot I12.9 HYPERTENSIVE CHRONIC KIDNEY DISEASE W ST 07/23/2016 MALVIN PAYAN MD Ot I25.10 ATHSCL HEART DISEASE OF [place] CORONARY 07/23/2016 MALVIN PAYAN MD, Ot I65.23 OCCLUSION AND STENOSIS OF [place]IL[place]AL [place] 07/23/2016 MALVIN PAYAN MD Ot N18.9 CHRONIC KIDNEY DISEASE, UNSPECIFIED 07/23/2016 MALVIN PAYAN MD, Ot Z45.2 ENCOUNTER FOR ADJUSTMENT AND MANAGEMENT 07/23/2016 MALVIN PAYAN MD, Ot Z68.41 BODY MASS INDEX (BMI) 40.0-44.9, ADULT 07/23/2016 MALVIN PAYAN MD, Ot Z79.4 JAIL (CURRENT) USE OF INSULIN 07/23/2016 MALVIN PAYAN MD, Ot Z79.899 OTHER JAIL (CURRENT) DRUG THERAPY 08/10/2016 BIBI MARSH, ANTONIO [...] MD Ot I25.10 ATHSCL HEART DISEASE OF [place] CORONARY 08/14/2016 VERNON COLLIER MD, Ot J44.9 CHRONIC OBSTRUCTIVE PULMONARY DISEASE , U 08/14/2016 VERNON COLLIER MD, Ot N18.6 END STAGE RENAL DISEASE 08/14/2016 VERNON COLLIER MD Ot R06.02 SHORTNESS OF BREATH 08/14/2016 VERNON COLLIER MD Ot R07.9 CHEST PAIN, UNSPECIFIED 08/14/2016 VERNON COLLIER MD, Ot Z79.02 TANK CREWMEMBER (CURRENT) USE OF ANTITHROMBOTI 08/14/2016 VERNON COLLIER MD Ot Z79.4 JAIL (CURRENT) USE OF INSULIN 08/14/2016 VERNON COLLIER MD Ot Z79.82 JAIL (CURRENT) USE OF ASPIRIN 08/14/2016 VERNON COLLIER MD, Ot Z79.899 OTHER JAIL (CURRENT) DRUG THERAPY 08/14/2016 VERNON COLLIER MD [...] MD Ot I25.10 ATHSCL HEART DISEASE OF [place] CORONARY 08/14/2016 VERNON COLLIER MD Ot J44.9 CHRONIC OBSTRUCTIVE PULMONARY DISEASE , U 08/14/2016 VERNON COLLIER MD, Ot N18.6 END STAGE RENAL DISEASE 08/14/2016 VERNON COLLIER MD Ot R06.02 SHORTNESS OF BREATH 08/14/2016 VERNON COLLIER MD Ot R07.9 CHEST PAIN, UNSPECIFIED 08/14/2016 VERNON COLLIER MD Ot Z79.02 TANK CREWMEMBER (CURRENT) USE OF ANTITHROMBOTI 08/14/2016 VERNON COLLIER MD Ot Z79.4 JAIL (CURRENT) USE OF INSULIN 08/14/2016 VERNON COLLIER MD, Ot Z79.82 JAIL (CURRENT) USE OF ASPIRIN 08/14/2016 VERNON COLLIER MD Ot Z79.899 OTHER TANK CREWMEMBER (CURRENT) DRUG THERAPY 08/14/2016 VERNON COLLIER MD, [...] MD Ot I25.10 ATHSCL HEART DISEASE OF [place] CORONARY 08/18/2016 VERNON COLLIER MD, Ot J44.9 CHRONIC OBSTRUCTIVE PULMONARY DISEASE , U 08/18/2016 VERNON COLLIER MD, Ot N18.6 END STAGE RENAL DISEASE 08/18/2016 VERNON COLLIER MD Ot R06.02 SHORTNESS OF BREATH 08/18/2016 VERNON COLLIER MD Ot R07.9 CHEST PAIN, UNSPECIFIED 08/18/2016 VERNON COLLIER MD Ot Z79.02 JAIL (CURRENT) USE OF ANTITHROMBOTI 08/18/2016 VERNON COLLIER MD Ot Z79.4 JAIL (CURRENT) USE OF INSULIN 08/18/2016 VERNON COLLIER MD, Ot Z79.82 TANK CREWMEMBER (CURRENT) USE OF ASPIRIN 08/18/2016 VERNON COLLIER MD, Ot Z79.899 OTHER TANK CREWMEMBER (CURRENT) DRUG THERAPY 08/18/2016 VERNON COLLIER MD [...] PAIN 08/24/2016 VERNON COLLIER MD Ot Z79.4 TANK CREWMEMBER (CURRENT) USE OF INSULIN 08/24/2016 VERNON COLLIER MD Ot Z79.82 TANK CREWMEMBER (CURRENT) USE OF ASPIRIN 08/24/2016 VERNON COLLIER MD Ot Z79.899 OTHER TANK CREWMEMBER (CURRENT) DRUG THERAPY 08/25/2016 VERNON COLLIER MD [...] PAIN 08/25/2016 VERNON COLLIER MD Ot Z79.4 TANK CREWMEMBER (CURRENT) USE OF INSULIN 08/25/2016 VERNON COLLIER MD Ot Z79.82 JAIL (CURRENT) USE OF ASPIRIN 08/25/2016 AMIRA MARSH, VERNON Cardona Ot Z79.899 OTHER JAIL (CURRENT) DRUG THERAPY 09/23/2016 JESSIKA DO, ANNE MARIE K Ot E11.65 TYPE 2 DIABETES MELLITUS WITH HYPERGLYCE 09/23/2016 JESSIKA DO, ANNE MARIE K Ot I12.0 HYP CHR KIDNEY DISEASE W STAGE 5 CHR KID 09/23/2016 JESSIKA DO, ANNE MARIE K Ot I25.10 ATHSCL HEART DISEASE OF [place] CORONARY 09/23/2016 JESSIKA DO, ANNE MARIE K [...] JESSIKA DO, ANNE MARIE K Ot Z79.02 JAIL (CURRENT) USE OF ANTITHROMBOTI 09/23/2016 JESSIKA DO, ANNE MARIE K Ot Z79.4 TANK CREWMEMBER (CURRENT) USE OF INSULIN 09/23/2016 JESSIKA DO, ANNE MARIE K Ot Z79.82 TANK CREWMEMBER (CURRENT) USE OF ASPIRIN 09/23/2016 JESSIKA DO, ANNE MARIE K Ot Z79.899 OTHER TANK CREWMEMBER (CURRENT) DRUG THERAPY 09/23/2016 JESSIKA DO, ANNE MARIE K Ot Z95.5 PRESENCE OF CORONARY ANGIOPLASTY IMPLANT 09/23/2016 JESSIKA DO, ANNE MARIE K Ot Z99.81 DEPENDENCE ON SUPPLEMENTAL OXYGEN 09/28/2016 MALVIN PAYAN MD Ot D63.1 ANEMIA IN CHRONIC KIDNEY DISEASE 09/28/2016 MALVIN PAYAN MD, Ot E03.9 HYPOTHYROIDISM, UNSPECIFIED 09/28/2016 MALVIN PAYAN MD Ot E11.22 TYPE 2 DIABETES MELLITUS W DIABETIC BENCH HAND 09/28/2016 MALVIN PAYAN MD Ot E66.01 MORBID (SEVERE) OBESITY DUE TO EXCESS CA 09/28/2016 ORA MD, MALVIN K Ot E83.42 HYPOMAGNESEMIA 09/28/2016 MALVIN PAYAN MD Ot F32.9 MAJOR DEPRESSIVE DISORDER, SINGLE EPISOD 09/28/2016 MALVIN PAYAN MD, Ot F41.9 ANXIETY DISORDER, UNSPECIFIED 09/28/2016 MALVIN PAYAN MD, Ot I12.9 HYPERTENSIVE CHRONIC KIDNEY DISEASE W ST 09/28/2016 MALVIN PAYAN MD Ot I25.10 ATHSCL HEART DISEASE OF [place] CORONARY 09/28/2016 MALVIN PAYAN MD Ot I65.23 OCCLUSION AND STENOSIS OF BILATERAL [place] 09/28/2016 MALVIN PAYAN MD Ot N18.9 CHRONIC KIDNEY DISEASE, UNSPECIFIED 09/28/2016 MALVIN PAYAN MD, Ot Z45.2 ENCOUNTER FOR ADJUSTMENT AND MANAGEMENT 09/28/2016 MALVIN PAYAN MD, Ot Z68.41 BODY MASS INDEX (BMI) 40.0-44.9, ADULT 09/28/2016 MALVIN PAYAN MD, Ot Z79.4 JAIL (CURRENT) USE OF INSULIN 09/28/2016 MALVIN PAYAN MD, Ot Z79.899 OTHER JAIL (CURRENT) DRUG THERAPY 10/01/2016 JESSIKA HUMMLE ANNE MARIE K Ot E11.65 TYPE 2 DIABETES MELLITUS WITH HYPERGLYCE 10/01/2016 JESSIKA HUMMEL ANNE MARIE K Ot I12.0 HYP CHR KIDNEY DISEASE W STAGE 5 CHR KID 10/01/2016 JESSIKA HUMMEL ANNE MARIE K Ot I25.10 ATHSCL HEART DISEASE OF [place] CORONARY 10/01/2016 JESSIKA HUMMEL ANNE MARIE K [...] 10/01/2016 GEORGE ROSEN DOA K Ot Z79.02 TANK CREWMEMBER (CURRENT) USE OF ANTITHROMBOTI 10/01/2016 GEORGE ROSEN DOA Adelso Ot Z79.4 TANK CREWMEMBER (CURRENT) USE OF INSULIN 10/01/2016 ANNE MARIE ROSEN DO, Ot Z79.82 JAIL (CURRENT) USE OF ASPIRIN 10/01/2016 ANNE MARIE ROSEN DO, Ot Z79.899 OTHER JAIL (CURRENT) DRUG THERAPY 10/01/2016 ANNE MARIE ROSEN DO, Ot Z95.5 PRESENCE OF CORONARY ANGIOPLASTY IMPLANT 10/01/2016 ANNE MARIE ROSEN DO, Ot Z99.81 DEPENDENCE ON SUPPLEMENTAL OXYGEN 10/05/2016 MALVIN PAYAN MD, Ot D63.1 ANEMIA IN CHRONIC KIDNEY DISEASE 10/05/2016 MALVIN PAYAN MD, Ot E03.9 HYPOTHYROIDISM, UNSPECIFIED 10/05/2016 MALVIN PAYAN MD, Ot E11.22 TYPE 2 DIABETES MELLITUS W DIABETIC BENCH HAND 10/05/2016 MALVIN PAYAN MD, Ot E66.01 MORBID (SEVERE) OBESITY DUE TO EXCESS CA 10/05/2016 MALVIN PAYAN MD, Ot E83.42 HYPOMAGNESEMIA 10/05/2016 MALVIN PAYAN MD, Ot F32.9 MAJOR DEPRESSIVE DISORDER, SINGLE EPISOD 10/05/2016 MALVIN PAYAN MD, Ot F41.9 ANXIETY DISORDER, UNSPECIFIED 10/05/2016 MALVIN PAYAN MD, Ot I12.9 HYPERTENSIVE CHRONIC KIDNEY DISEASE W ST 10/05/2016 MALVIN PAYAN MD, Ot I25.10 ATHSCL HEART DISEASE OF [place] CORONARY 10/05/2016 MALVIN PAYAN MD, Ot I65.23 OCCLUSION AND STENOSIS OF BILATERAL [place] 10/05/2016 MALVIN PAYAN MD, Ot N18.9 CHRONIC KIDNEY DISEASE, UNSPECIFIED 10/05/2016 MALVIN PAYAN MD, Ot Z45.2 ENCOUNTER FOR ADJUSTMENT AND MANAGEMENT 10/05/2016 MALVIN PAYAN MD, Ot Z68.41 BODY MASS INDEX (BMI) 40.0-44.9, ADULT 10/05/2016 MALVIN PAYAN MD, Ot Z79.4 JAIL (CURRENT) USE OF INSULIN 10/05/2016 MALVIN PAYAN MD, Ot Z79.899 OTHER TANK CREWMEMBER (CURRENT) DRUG THERAPY 10/08/2016 MALVIN PAYAN MD, Ot D63.1 ANEMIA IN CHRONIC KIDNEY DISEASE 10/08/2016 MALVIN PAYAN MD, Ot E03.9 HYPOTHYROIDISM, UNSPECIFIED 10/08/2016 MALVIN PAYAN MD, Ot E11.22 TYPE 2 DIABETES MELLITUS W DIABETIC BENCH HAND 10/08/2016 MALVIN PAYAN MD, Ot E66.01 MORBID (SEVERE) OBESITY DUE TO EXCESS CA 10/08/2016 MALVIN PAYAN MD Ot E83.42 HYPOMAGNESEMIA 10/08/2016 MALVIN PAYAN MD, Ot F32.9 MAJOR DEPRESSIVE DISORDER, SINGLE EPISOD 10/08/2016 MALVIN PAYAN MD, Ot F41.9 ANXIETY DISORDER, UNSPECIFIED 10/08/2016 MALVIN PAYAN MD Ot I12.9 HYPERTENSIVE CHRONIC KIDNEY DISEASE W ST 10/08/2016 MALVIN PAYAN MD, Ot I25.10 ATHSCL HEART DISEASE OF [place] CORONARY 10/08/2016 MALVIN PAYAN MD, Ot I65.23 OCCLUSION AND STENOSIS OF BILATERAL [place] 10/08/2016 MALVIN PAYAN MD, Ot N18.9 CHRONIC KIDNEY DISEASE, UNSPECIFIED 10/08/2016 MALVIN PAYAN MD, Ot Z45.2 ENCOUNTER FOR ADJUSTMENT AND MANAGEMENT 10/08/2016 MALVIN PAYAN MD, Ot Z68.41 BODY MASS INDEX (BMI) 40.0-44.9, ADULT 10/08/2016 MALVIN PAYAN MD, Ot Z79.4 TANK CREWMEMBER (CURRENT) USE OF INSULIN 10/08/2016 MALVIN PAYAN MD, Ot Z79.899 OTHER TANK CREWMEMBER (CURRENT) DRUG THERAPY 10/10/2016 GUMARO HEBERT MD Ot E11.9 TYPE 2 DIABETES MELLITUS WITHOUT COMPLIC 10/10/2016 GUMARO HEBERT MD, Ot I12.0 HYP CHR KIDNEY DISEASE W STAGE 5 CHR KID 10/10/2016 GUMARO HEBERT MD, Ot I25.10 ATHSCL HEART DISEASE OF [place] CORONARY 10/10/2016 GUMARO HEBERT MD, Ot I51.7 CARDIOMEGALY 10/10/2016 GUMARO HEBERT MD Ot N18.6 END STAGE RENAL DISEASE 10/10/2016 GUMARO HEBERT MD Ot R07.9 CHEST PAIN, UNSPECIFIED 10/10/2016 GUMARO HEBERT MD, Ot Z79.02 JAIL (CURRENT) USE OF ANTITHROMBOTI 10/10/2016 GUMARO HEBERT MD Ot Z79.4 JAIL (CURRENT) USE OF INSULIN 10/10/2016 GUMARO HEBERT MD, Ot Z79.899 OTHER TANK CREWMEMBER (CURRENT) DRUG THERAPY 10/10/2016 GUMARO HEBERT MD, Ot Z95.5 PRESENCE OF CORONARY ANGIOPLASTY IMPLANT 10/11/2016 GUMARO HEBERT MD Ot E11.9 TYPE 2 DIABETES MELLITUS WITHOUT COMPLIC 10/11/2016 GUMARO HEBERT MD, Ot I12.0 HYP CHR KIDNEY DISEASE W STAGE 5 CHR KID 10/11/2016 GUMARO HEBERT MD, Ot I25.10 ATHSCL HEART DISEASE OF [place] CORONARY 10/11/2016 GUMARO HEBERT MD, Ot I51.7 CARDIOMEGALY 10/11/2016 GUMARO HEBERT MD, Ot N18.6 END STAGE RENAL DISEASE 10/11/2016 GUMARO HEBERT MD, Ot R07.9 CHEST PAIN, UNSPECIFIED 10/11/2016 GUMARO HEBERT MD, Ot Z79.02 TANK CREWMEMBER (CURRENT) USE OF ANTITHROMBOTI 10/11/2016 GUMARO HEBERT MD, Ot Z79.4 JAIL (CURRENT) USE OF INSULIN 10/11/2016 GUMARO HEBERT MD, Ot Z79.899 OTHER JAIL (CURRENT) DRUG THERAPY 10/11/2016 GUMARO HEBERT MD, Ot Z95.5 PRESENCE OF CORONARY ANGIOPLASTY IMPLANT 11/18/2016 MALVIN PAYAN MD Ot D63.1 ANEMIA IN CHRONIC KIDNEY DISEASE 11/18/2016 MALVIN PAYAN MD Ot E03.9 HYPOTHYROIDISM, UNSPECIFIED 11/18/2016 MALVIN PAYAN MD Ot E11.22 TYPE 2 DIABETES MELLITUS W DIABETIC BENCH HAND 11/18/2016 MALVIN PAYAN MD Ot E66.01 MORBID (SEVERE) OBESITY DUE TO EXCESS CA 11/18/2016 MALVIN PAYAN MD Ot E83.42 HYPOMAGNESEMIA 11/18/2016 MALVIN PAYAN MD Ot F32.9 MAJOR DEPRESSIVE DISORDER, SINGLE EPISOD 11/18/2016 MALVIN PAYAN MD Ot F41.9 ANXIETY DISORDER, UNSPECIFIED 11/18/2016 MALVIN PAYAN MD Ot I12.9 HYPERTENSIVE CHRONIC KIDNEY DISEASE W ST 11/18/2016 MALVIN PAYAN MD Ot I25.10 ATHSCL HEART DISEASE OF [place] CORONARY 11/18/2016 MALVIN PAYAN MD Ot I65.23 OCCLUSION AND STENOSIS OF BILATERAL [place] 11/18/2016 MALVIN PAYAN MD Ot N18.9 CHRONIC KIDNEY DISEASE, UNSPECIFIED 11/18/2016 MALVIN PAYAN MD, Ot Z68.41 BODY MASS INDEX (BMI) 40.0-44.9, ADULT 11/18/2016 MALVIN PAYAN MD Ot Z79.4 TANK CREWMEMBER (CURRENT) USE OF INSULIN 11/18/2016 MALVIN PAYAN MD Ot Z79.899 OTHER TANK CREWMEMBER (CURRENT) DRUG THERAPY 12/18/2016 Ot 414.00 CORON ATHEROSCLER NOS TYPE VESSEL, NATIV 12/18/2016 ISABEL HUMPHREYS MD Ot 300.00 ANXIETY STATE NOS 12/18/2016 ISABEL HUMPHREYS MD R Ot 311 DEPRESSIVE DISORDER NEC 12/18/2016 MARIBELL MARAVILLA COMPLIANCE NURSE Ot 790.6 ABN BLOOD CHEMISTRY NEC 12/18/2016 ISABEL HUMPHREYS MD Ot 285.9 ANEMIA NOS 12/18/2016 ISABEL HUMPHREYS MD R Ot 460 ACUTE NASOPHARYNGITIS 12/18/2016 MARIBELL MARAVILLA L COMPLIANCE NURSE Ot 272.4 HYPERLIPIDEMIA NEC/NOS 12/18/2016 MARIBELL MARAVILLA L COMPLIANCE NURSE Ot 401.9 HYPERTENSION NOS 12/18/2016 MARIBELL MARAVILLA L COMPLIANCE NURSE Ot 414.00 CORON ATHEROSCLER NOS TYPE VESSEL, [...] CCDS Ot I25.10 ATHSCL HEART DISEASE OF [place] CORONARY 12/18/2016 DAVE MARSH FACC, ALI FACP CCDS Ot J43.8 OTHER EMPHYSEMA 12/18/2016 NICOLETTE MARSH, DULCE Ot E11.9 TYPE 2 DIABETES MELLITUS WITHOUT COMPLIC 12/18/2016 NICOLETTE MARSH, DULCE Ot E66.9 OBESITY, UNSPECIFIED 12/18/2016 NICOLETTE MARSH, DULCE Ot I12.9 HYPERTENSIVE CHRONIC KIDNEY DISEASE W ST 12/18/2016 NICOLETTE MARSH DULCE Ot I25.10 ATHSCL HEART DISEASE OF [place] CORONARY 12/18/2016 NICOLETTE MARSH DULCE Ot J44.9 [...] CCDS Ot I25.10 ATHSCL HEART DISEASE OF [place] CORONARY 12/18/2016 DAVE MARSH FACC, ALI FACP [...] CCDS Ot I25.10 ATHSCL HEART DISEASE OF [place] CORONARY 12/18/2016 DAVE MARSH [facility], ALI FACP CCDS Ot I65.23 OCCLUSION [...] E11.22 TYPE 2 DIABETES MELLITUS W DIABETIC BENCH HAND 12/18/2016 MALVIN PAYAN MD Ot E66.01 MORBID (SEVERE) OBESITY DUE TO EXCESS CA 12/18/2016 MALVIN PAYAN MD Ot E83.42 HYPOMAGNESEMIA 12/18/2016 MALVIN PAYAN MD Ot F32.9 MAJOR DEPRESSIVE DISORDER, SINGLE EPISOD 12/18/2016 MALVIN PAYAN MD Ot F41.9 ANXIETY DISORDER, UNSPECIFIED 12/18/2016 MALVIN PAYAN MD Ot I12.9 HYPERTENSIVE CHRONIC KIDNEY DISEASE W ST 12/18/2016 MALVIN PAYAN MD Ot I25.10 ATHSCL HEART DISEASE OF [place] CORONARY 12/18/2016 MALVIN PAYAN MD Ot I65.23 OCCLUSION AND STENOSIS OF [place]ILATERAL [place] 12/18/2016 MALVIN PAYAN MD Ot N18.9 CHRONIC KIDNEY DISEASE, UNSPECIFIED 12/18/2016 MALVIN PAYAN MD Ot Z68.41 BODY MASS INDEX (BMI) 40.0-44.9, ADULT 12/18/2016 MALVIN PAYAN MD, Ot Z79.4 TANK CREWMEMBER (CURRENT) USE OF INSULIN 12/18/2016 MALVIN PAYAN MD, Ot Z79.899 OTHER TANK CREWMEMBER (CURRENT) DRUG THERAPY 12/18/2016 Ot 414.00 CORON ATHEROSCLER NOS TYPE VESSEL, NATIV 12/18/2016 ISABEL HUMPHREYS MD R Ot 300.00 ANXIETY STATE NOS 12/18/2016 ISABEL HUMPHREYS MD Ot 311 DEPRESSIVE DISORDER NEC 12/18/2016 MARIBELL MARAVILLA COMPLIANCE NURSE Ot 790.6 ABN BLOOD CHEMISTRY NEC 12/18/2016 ISABEL HUMPHREYS MD R Ot 285.9 ANEMIA NOS 12/18/2016 ISABEL HUMPHREYS MD R Ot 460 ACUTE NASOPHARYNGITIS 12/18/2016 MARIBELL MARAVILLA COMPLIANCE NURSE Ot 272.4 HYPERLIPIDEMIA NEC/NOS 12/18/2016 MARIBELL MARAVILLA COMPLIANCE NURSE Ot 401.9 HYPERTENSION NOS 12/18/2016 MARIBELL MARAVILLA COMPLIANCE NURSE Ot 414.00 CORON ATHEROSCLER NOS TYPE VESSEL, [...] CCDS Ot I25.10 ATHSCL HEART DISEASE OF [place] CORONARY 12/18/2016 DAVE MARSH FACC, EARL FACP CCDS Ot J43.8 OTHER EMPHYSEMA 12/18/2016 NICOLETTE MARSH, DULCE Ot E11.9 TYPE 2 DIABETES MELLITUS WITHOUT COMPLIC 12/18/2016 NICOLETTE MARSH, DULCE Ot E66.9 OBESITY, UNSPECIFIED 12/18/2016 NICOLETTE MARSH DULCE Ot I12.9 HYPERTENSIVE CHRONIC KIDNEY DISEASE W ST 12/18/2016 NICOLETTE MARSH, DULCE Ot I25.10 ATHSCL HEART DISEASE OF [place] CORONARY 12/18/2016 NICOLETTE MARSH DULCE Ot J44.9 [...] CCDS Ot I25.10 ATHSCL HEART DISEASE OF [place] CORONARY 12/18/2016 DAVE MARSH FACC, ALI FACP [...] CCDS Ot I25.10 ATHSCL HEART DISEASE OF [place] CORONARY 12/18/2016 DAVE CHAVEZ, ALI FACP CCDS [...] E11.22 TYPE 2 DIABETES MELLITUS W DIABETIC BENCH HAND 12/18/2016 MALVIN PAYAN MD Ot E66.01 MORBID (SEVERE) OBESITY DUE TO EXCESS CA 12/18/2016 MALVIN PAYAN MD Ot E83.42 HYPOMAGNESEMIA 12/18/2016 MALVIN PAYAN MD, Ot F32.9 MAJOR DEPRESSIVE DISORDER, SINGLE EPISOD 12/18/2016 MALVIN PAYAN MD, Ot F41.9 ANXIETY DISORDER, UNSPECIFIED 12/18/2016 MALVIN PAYAN MD Ot I12.9 HYPERTENSIVE CHRONIC KIDNEY DISEASE W ST 12/18/2016 MALVIN PAYAN MD Ot I25.10 ATHSCL HEART DISEASE OF [place] CORONARY 12/18/2016 MALVIN PAYAN MD Ot I65.23 OCCLUSION AND STENOSIS OF BILATERAL [place] 12/18/2016 MALVIN PAYAN MD Ot N18.9 CHRONIC KIDNEY DISEASE, UNSPECIFIED 12/18/2016 MALVIN PAYAN MD Ot Z68.41 BODY MASS INDEX (BMI) 40.0-44.9, ADULT 12/18/2016 MALVIN PAYAN MD Ot Z79.4 TANK CREWMEMBER (CURRENT) USE OF INSULIN 12/18/2016 MALVIN PAYAN MD, Ot Z79.899 OTHER TANK CREWMEMBER (CURRENT) DRUG THERAPY 12/18/2016 TREVOR TURCIOS MD, [...] UNSPECIFIED 12/18/2016 TREVOR TURCIOS MD, Ot Z79.4 JAIL (CURRENT) USE OF INSULIN 12/18/2016 TREVOR TURCIOS MD Ot Z79.82 TANK CREWMEMBER (CURRENT) USE OF ASPIRIN 12/18/2016 TREVOR TURCIOS MD Ot Z79.899 OTHER TANK CREWMEMBER (CURRENT) DRUG THERAPY 12/18/2016 TREVOR TURCIOS MD [...] UNSPECIFIED 12/21/2016 TREVOR TURCIOS MD Ot Z79.4 JAIL (CURRENT) USE OF INSULIN 12/21/2016 TREVOR TURCIOS MD Ot Z79.82 JAIL (CURRENT) USE OF ASPIRIN 12/21/2016 TREVOR TURCIOS MD Ot Z79.899 OTHER TANK CREWMEMBER (CURRENT) DRUG THERAPY 12/21/2016 TREVOR TURCIOS MD [...] UNSPECIFIED 12/22/2016 TREVOR TURCIOS MD Ot Z79.4 JAIL (CURRENT) USE OF INSULIN 12/22/2016 TREVOR TURCIOS MD Ot Z79.82 TANK CREWMEMBER (CURRENT) USE OF ASPIRIN 12/22/2016 TREVOR TURCIOS MD, Ot Z79.899 OTHER JAIL (CURRENT) DRUG THERAPY 12/22/2016 TREVOR TURCIOS MD, Ot Z99.2 DEPENDENCE ON RENAL DIALYSIS 01/05/2017 MALVIN PAYAN MD, Ot D63.1 ANEMIA IN CHRONIC KIDNEY DISEASE 01/05/2017 MALVIN PAYAN MD, Ot E03.9 HYPOTHYROIDISM, UNSPECIFIED 01/05/2017 MALVIN PAYAN MD Ot E11.22 TYPE 2 DIABETES MELLITUS W DIABETIC BENCH HAND 01/05/2017 MALVIN PAYAN MD, Ot E66.01 MORBID (SEVERE) OBESITY DUE TO EXCESS CA 01/05/2017 MALVIN PAYAN MD, Ot E83.42 HYPOMAGNESEMIA 01/05/2017 MALVIN PAYAN MD, Ot F32.9 MAJOR DEPRESSIVE DISORDER, SINGLE EPISOD 01/05/2017 MALVIN PAYAN MD, Ot F41.9 ANXIETY DISORDER, UNSPECIFIED 01/05/2017 MALVIN PAYAN MD, Ot I12.9 HYPERTENSIVE CHRONIC KIDNEY DISEASE W ST 01/05/2017 MALVIN PAYAN MD, Ot I25.10 ATHSCL HEART DISEASE OF [place] CORONARY 01/05/2017 MALVIN PAYAN MD, Ot I65.23 OCCLUSION AND STENOSIS OF BILATERAL [place] 01/05/2017 MALVNI PAYAN MD, Ot N18.9 CHRONIC KIDNEY DISEASE, UNSPECIFIED 01/05/2017 MALVIN PAYAN MD, Ot Z68.41 BODY MASS INDEX (BMI) 40.0-44.9, ADULT 01/05/2017 MALVIN PAYAN MD Ot Z79.4 TANK CREWMEMBER (CURRENT) USE OF INSULIN 01/05/2017 MALVIN PAYAN MD, Ot Z79.899 OTHER JAIL (CURRENT) DRUG THERAPY 01/06/2017 MARCELA MENDEZ DO, [...] UNSPECIFIED 01/06/2017 MARCELA MENDEZ DO, Ot Z79.02 JAIL (CURRENT) USE OF ANTITHROMBOTI 01/06/2017 MARCELA MENDEZ DO, Ot Z79.4 TANK CREWMEMBER (CURRENT) USE OF INSULIN 01/06/2017 MARCELA MENDEZ DO, Ot Z79.82 JAIL (CURRENT) USE OF ASPIRIN 01/06/2017 MARCELA MENDEZ DO, Ot Z79.899 OTHER JAIL (CURRENT) DRUG THERAPY 01/06/2017 MARCELA MENDEZ DO [...] UNSPECIFIED 01/07/2017 MARCELA MENDEZ DO, Ot Z79.02 TANK CREWMEMBER (CURRENT) USE OF ANTITHROMBOTI 01/07/2017 MARCELA MENDEZ DO, Ot Z79.4 JAIL (CURRENT) USE OF INSULIN 01/07/2017 MARCELA MENDEZ DO, Ot Z79.82 TANK CREWMEMBER (CURRENT) USE OF ASPIRIN 01/07/2017 MARCELA MENDEZ DO, Ot Z79.899 OTHER TANK CREWMEMBER (CURRENT) DRUG THERAPY 01/07/2017 MARCELA MENDEZ DO, Ot Z99.2 DEPENDENCE ON RENAL DIALYSIS 01/08/2017 MARCELA MENDEZ DO, Ot E11.9 TYPE 2 DIABETES MELLITUS WITHOUT COMPLIC 01/08/2017 MARCELA MENDEZ DO Ot I12.0 HYP CHR KIDNEY DISEASE W STAGE 5 CHR KID 01/08/2017 MARCELA MENEDZ DO Ot I51.7 CARDIOMEGALY 01/08/2017 MARCELA MENDEZ DO Ot N18.6 END STAGE RENAL DISEASE 01/08/2017 MARCELA MENDEZ DO Ot R07.89 OTHER CHEST PAIN 01/08/2017 MARCELA MENDEZ DO Ot R07.9 CHEST PAIN, UNSPECIFIED 01/08/2017 MARCELA MENDEZ DO Ot Z79.02 JAIL (CURRENT) USE OF ANTITHROMBOTI 01/08/2017 MARCELA MENDEZ DO Ot Z79.4 JAIL (CURRENT) USE OF INSULIN 01/08/2017 MARCELA MENDEZ DO Ot Z79.82 JAIL (CURRENT) USE OF ASPIRIN 01/08/2017 MARCELA MENDEZ DO Ot Z79.899 OTHER JAIL (CURRENT) DRUG THERAPY 01/08/2017 MARCELA MENDEZ DO [...] DISEASE 01/18/2017 URBAN JOHNSON APRN Ot Z79.02 JAIL (CURRENT) USE OF ANTITHROMBOTI 01/18/2017 URBAN JOHNSON APRN Ot Z79.4 JAIL (CURRENT) USE OF INSULIN 01/18/2017 URBAN JOHNSON APRN Ot Z79.82 JAIL (CURRENT) USE OF ASPIRIN 01/18/2017 URBAN JOHNSON APRN Ot Z79.899 OTHER TANK CREWMEMBER (CURRENT) DRUG THERAPY 01/18/2017 URBAN JOHNSON APRN [...] K56.41 FECAL IMPACTION 01/19/2017 JOHNSON, PETER J REPORT PROGRAMMER Ot K59.00 CONSTIPATION, UNSPECIFIED 01/19/2017 URBAN JOHNSON REPORT PROGRAMMER Ot M79.7 FIBROMYALGIA 01/19/2017 URBAN JOHNSON APRN Ot N18.6 END STAGE RENAL DISEASE 01/19/2017 URBAN JOHNSON APRN Ot Z79.02 TANK CREWMEMBER (CURRENT) USE OF ANTITHROMBOTI 01/19/2017 URBAN JOHNSON APRN Ot Z79.4 TANK CREWMEMBER (CURRENT) USE OF INSULIN 01/19/2017 URBAN JOHNSON APRN Ot Z79.82 JAIL (CURRENT) USE OF ASPIRIN 01/19/2017 URBAN JOHNSON APRN Ot Z79.899 OTHER TANK CREWMEMBER (CURRENT) DRUG THERAPY 01/19/2017 URBAN JOHNSON APRN [...] DISEASE 01/19/2017 URBAN JOHNSON APRN Ot Z79.02 TANK CREWMEMBER (CURRENT) USE OF ANTITHROMBOTI 01/19/2017 URBAN JOHNSON APRN Ot Z79.4 TANK CREWMEMBER (CURRENT) USE OF INSULIN 01/19/2017 URBAN JOHNSON APRN Ot Z79.82 JAIL (CURRENT) USE OF ASPIRIN 01/19/2017 URBAN JOHNSON APRN Ot Z79.899 OTHER TANK CREWMEMBER (CURRENT) DRUG THERAPY 01/19/2017 URBAN JOHNSON APRN [...] DISEASE 01/24/2017 URBAN JOHNSON APRN Ot Z79.02 TANK CREWMEMBER (CURRENT) USE OF ANTITHROMBOTI 01/24/2017 URBAN JOHNSON APRN Ot Z79.4 TANK CREWMEMBER (CURRENT) USE OF INSULIN 01/24/2017 URBAN JOHNSON APRN Ot Z79.82 JAIL (CURRENT) USE OF ASPIRIN 01/24/2017 URBAN JOHNSON APRN Ot Z79.899 OTHER JAIL (CURRENT) DRUG THERAPY 01/24/2017 URBAN JOHNSON APRN Ot Z95.5 PRESENCE OF CORONARY ANGIOPLASTY IMPLANT 01/24/2017 URBAN JOHNSON APRN Ot Z99.2 DEPENDENCE ON RENAL DIALYSIS 01/29/2017 TREVOR TURCIOS MD Ot E11.9 TYPE 2 DIABETES MELLITUS WITHOUT COMPLIC 01/29/2017 TREVOR TURCIOS MD Ot I12.0 HYP CHR KIDNEY DISEASE W STAGE 5 CHR KID 01/29/2017 TREVOR TURCIOS MD Ot I25.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 [place] COR ART W 01/29/2017 TREVOR TURCIOS MD Ot I51.7 CARDIOMEGALY 01/29/2017 TREVOR TURCIOS MD Ot J44.9 CHRONIC OBSTRUCTIVE PULMONARY DISEASE, U 01/29/2017 TREVOR TURCIOS MD Ot N18.6 END STAGE RENAL DISEASE 01/29/2017 TREVOR TURCIOS MD Ot R07.9 CHEST PAIN, UNSPECIFIED 01/29/2017 TREVOR TURCIOS MD Ot Z79.02 JAIL (CURRENT) USE OF ANTITHROMBOTI 01/29/2017 TREVOR TURCIOS MD Ot Z79.4 TANK CREWMEMBER (CURRENT) USE OF INSULIN 01/29/2017 TREVOR TURCIOS MD Ot Z79.82 TANK CREWMEMBER (CURRENT) USE OF ASPIRIN 01/29/2017 TREVOR TURCIOS MD, Ot Z79.899 OTHER TANK CREWMEMBER (CURRENT) DRUG THERAPY 01/29/2017 TREVOR TURCIOS MD Ot Z95.5 PRESENCE OF CORONARY ANGIOPLASTY IMPLANT 01/29/2017 TREVOR TURCIOS MD Ot Z99.2 DEPENDENCE ON RENAL DIALYSIS 02/15/2017 UBRAN JOHNSON APRN Ot E11.9 TYPE 2 DIABETES [...] DISEASE 02/15/2017 URBAN JOHNSON APRN Ot Z79.02 TANK CREWMEMBER (CURRENT) USE OF ANTITHROMBOTI 02/15/2017 URBAN JOHNSON APRN Ot Z79.4 TANK CREWMEMBER (CURRENT) USE OF INSULIN 02/15/2017 URBAN JOHNSON APRN Ot Z79.82 TANK CREWMEMBER (CURRENT) USE OF ASPIRIN 02/15/2017 URBAN JOHNSON APRN Ot Z79.899 OTHER TANK CREWMEMBER (CURRENT) DRUG THERAPY 02/15/2017 URBAN JOHNSON APRN Ot Z95.5 PRESENCE OF CORONARY ANGIOPLASTY IMPLANT 02/15/2017 URBAN JOHNSON APRN Ot Z99.2 DEPENDENCE ON RENAL DIALYSIS 02/19/2017 Ot 414.00 CORON ATHEROSCLER NOS TYPE VESSEL, NATIV 02/19/2017 ISABEL HUMPHREYS MD Ot 300.00 ANXIETY STATE NOS 02/19/2017 ISABEL HUMPHREYS MD Ot 311 DEPRESSIVE DISORDER NEC 02/19/2017 MARIBELL MARAVILLA COMPLIANCE NURSE Ot 790.6 ABN BLOOD CHEMISTRY NEC 02/19/2017 SEGLIE MD, ISABEL R Ot 285.9 ANEMIA NOS 02/19/2017 JULIANN MARSH, ISABEL R Ot 460 ACUTE NASOPHARYNGITIS 02/19/2017 MARIBELL AMRAVILLA COMPLIANCE NURSE Ot 272.4 HYPERLIPIDEMIA NEC/NOS 02/19/2017 MARIBELL MARAVILLA COMPLIANCE NURSE Ot 401.9 HYPERTENSION NOS 02/19/2017 MARIBELL MARAVILLA COMPLIANCE NURSE Ot 414.00 CORON ATHEROSCLER NOS TYPE VESSEL, [...] CCDS Ot I25.10 ATHSCL HEART DISEASE OF [place] CORONARY 02/19/2017 DAVE MARSH FACC, ALI FACP CCDS Ot J43.8 OTHER EMPHYSEMA 02/19/2017 DULCE WILL MD Ot E11.9 TYPE 2 DIABETES MELLITUS WITHOUT COMPLIC 02/19/2017 DULCE WILL MD Ot E66.9 OBESITY, UNSPECIFIED 02/19/2017 DULCE WILL MD Ot I12.9 HYPERTENSIVE CHRONIC KIDNEY DISEASE W ST 02/19/2017 ANA WILL MDIL Ot I25.10 ATHSCL HEART DISEASE OF [place] CORONARY 02/19/2017 DULCE WILL MD Ot J44.9 [...] CCDS Ot I25.10 ATHSCL HEART DISEASE OF [place] CORONARY 02/19/2017 DAVE MARSH FACC, ALI FACP [...] CCDS Ot I25.10 ATHSCL HEART DISEASE OF [place] CORONARY 02/19/2017 DAVE MARSH FACC, ALI FACP [...] Cardona Ot D64.9 ANEMIA, UNSPECIFIED 03/19/2017 VERNON COLLIER MD Ot E03.9 HYPOTHYROIDISM, UNSPECIFIED 03/19/2017 VERNON COLLIER MD Ot E11.22 TYPE 2 DIABETES MELLITUS W DIABETIC BENCH HAND 03/19/2017 VERNON COLLIER MD Ot F41.0 PANIC DISORDER WITHOUT AGORAPHOBIA 03/19/2017 VERNON COLLIER MD Ot I12.0 HYP CHR KIDNEY DISEASE W STAGE 5 CHR KID 03/19/2017 VERNON COLLIER MD Ot I25.10 ATHSCL HEART DISEASE OF [place] CORONARY 03/19/2017 VERNON COLLIER MD Ot J44.9 [...] NAUSEA 03/19/2017 VERNON COLLIER MD, Ot Z79.4 TANK CREWMEMBER (CURRENT) USE OF INSULIN 03/19/2017 VERNON COLLIER MD, Ot Z79.82 JAIL (CURRENT) USE OF ASPIRIN 03/19/2017 VERNON COLLIER [...] E11.22 TYPE 2 DIABETES MELLITUS W DIABETIC BENCH HAND 03/22/2017 VERNON COLLIER MD, Ot F41.0 PANIC DISORDER WITHOUT AGORAPHOBIA 03/22/2017 VERNON COLLIER MD, Ot I12.0 HYP CHR KIDNEY DISEASE W STAGE 5 CHR KID 03/22/2017 VERNON COLLIER MD, Ot I25.10 ATHSCL HEART DISEASE OF [place] CORONARY 03/22/2017 VERNON COLLIER MD, Ot J44.9 [...] NAUSEA 03/22/2017 VERNON COLLIER MD, Ot Z79.4 JAIL (CURRENT) USE OF INSULIN 03/22/2017 VERNON COLLIER MD, Ot Z79.82 JAIL (CURRENT) USE OF ASPIRIN 03/22/2017 VERNON COLLIER [...] E11.22 TYPE 2 DIABETES MELLITUS W DIABETIC BENCH HAND 04/01/2017 VERNON COLLIER MD, Ot I12.0 HYP CHR KIDNEY DISEASE W STAGE 5 CHR KID 04/01/2017 VERNON COLLIER MD, Ot I16.0 HYPERTENSIVE URGENCY 04/01/2017 VERNON COLLIER MD Ot I25.10 ATHSCL HEART DISEASE OF [place] CORONARY 04/01/2017 VERNON COLLIER MD Ot I51.7 CARDIOMEGALY 04/01/2017 VERNON COLLIER MD, Ot J44.9 CHRONIC OBSTRUCTIVE PULMONARY DISEASE , U 04/01/2017 VERNON COLLIER MD, Ot N18.6 END STAGE RENAL DISEASE 04/01/2017 VERNON COLLIER MD, Ot R07.9 CHEST PAIN, UNSPECIFIED 04/01/2017 VERNON COLLIER MD, Ot R11.0 NAUSEA 04/01/2017 VERNON COLLIER MD, Ot R51 HEADACHE 04/01/2017 VERNON COLLIER MD, Ot Z79.02 TANK CREWMEMBER (CURRENT) USE OF ANTITHROMBOTI 04/01/2017 VERNON COLLIER MD, Ot Z79.4 JAIL (CURRENT) USE OF INSULIN 04/01/2017 VERNON COLLIER MD, Ot Z79.82 JAIL (CURRENT) USE OF ASPIRIN 04/01/2017 VERNON COLLIER MD, Ot Z79.899 OTHER TANK CREWMEMBER (CURRENT) DRUG THERAPY 04/01/2017 VERNON COLLIER MD, Ot Z95.5 PRESENCE OF CORONARY ANGIOPLASTY IMPLANT 04/01/2017 VERNON COLLIER MD, Ot Z99.2 DEPENDENCE ON RENAL DIALYSIS 04/07/2017 MARIBEL MARTIN MD, Ot D63.1 ANEMIA IN CHRONIC KIDNEY DISEASE 04/07/2017 MARIBEL MARTIN MD, Ot E03.9 HYPOTHYROIDISM, UNSPECIFIED 04/07/2017 MARIBEL MARTIN MD, Ot E11.22 TYPE 2 DIABETES MELLITUS W DIABETIC BENCH HAND 04/07/2017 MARIBEL MARTIN MD, Ot E66.01 MORBID (SEVERE) OBESITY DUE TO EXCESS CA 04/07/2017 MARIBEL MARTIN MD, Ot E83.42 HYPOMAGNESEMIA 04/07/2017 MARIBEL MARTIN MD, Ot F32.9 MAJOR DEPRESSIVE DISORDER, SINGLE EPISOD 04/07/2017 MARIBEL MARTIN MD, Ot F41.9 ANXIETY DISORDER, UNSPECIFIED 04/07/2017 MARIBEL MARTIN MD, Ot I12.9 HYPERTENSIVE CHRONIC KIDNEY DISEASE W ST 04/07/2017 MARIBEL MARTIN MD, Ot I25.10 ATHSCL HEART DISEASE OF [place] CORONARY 04/07/2017 MARIBEL MARTIN MD Ot I65.23 OCCLUSION AND STENOSIS OF BILATERAL [place] 04/07/2017 XUN MD, MARTINEZ-FLORA Ot N18.9 CHRONIC KIDNEY DISEASE, UNSPECIFIED 04/07/2017 MARIBEL MARTIN MD Ot Z68.41 BODY MASS INDEX (BMI) 40.0-44.9, ADULT 04/07/2017 MARIBEL MARTIN MD Ot Z79.4 TANK CREWMEMBER (CURRENT) USE OF INSULIN 04/07/2017 MARIBEL MARTIN MD Ot Z79.899 OTHER JAIL (CURRENT) DRUG THERAPY 04/29/2017 Ot 414.00 CORON ATHEROSCLER NOS TYPE VESSEL, NATIV 04/29/2017 ISABEL HUMPHREYS MD R Ot 300.00 ANXIETY STATE NOS 04/29/2017 ISABEL HUMPHREYS MD R Ot 311 DEPRESSIVE DISORDER NEC 04/29/2017 BAIMARIBELL SALEH COMPLIANCE NURSE Ot 790.6 ABN BLOOD CHEMISTRY NEC 04/29/2017 ISABEL HUMPHREYS MD R Ot 285.9 ANEMIA NOS 04/29/2017 ISABEL HUMPHREYS MD R Ot 460 ACUTE NASOPHARYNGITIS 04/29/2017 BAILEONIDES SALEHHER L COMPLIANCE NURSE Ot 272.4 HYPERLIPIDEMIA NEC/NOS 04/29/2017 BAIMA MARIBELL L COMPLIANCE NURSE Ot 401.9 HYPERTENSION NOS 04/29/2017 TAIWO MARIBELL L COMPLIANCE NURSE Ot 414.00 CORON ATHEROSCLER NOS TYPE VESSEL, [...] CCDS Ot I25.10 ATHSCL HEART DISEASE OF [place] CORONARY 04/29/2017 DAVE MARSH FACC, ALI FACP CCDS Ot J43.8 OTHER EMPHYSEMA 04/29/2017 NICOLETTE MARSH, DULCE Ot E11.9 TYPE 2 DIABETES MELLITUS WITHOUT COMPLIC 04/29/2017 NICOLETTE MARSH, DULCE Ot E66.9 OBESITY, UNSPECIFIED 04/29/2017 NICOLETTE MARSH, DULCE Ot I12.9 HYPERTENSIVE CHRONIC KIDNEY DISEASE W ST 04/29/2017 NICOLETTE MARSH, DULCE Ot I25.10 ATHSCL HEART DISEASE OF [place] CORONARY 04/29/2017 NICOLETTE MARSH DULCE Ot J44.9 [...] CCDS Ot I25.10 ATHSCL HEART DISEASE OF [place] CORONARY 04/29/2017 DAVE MARSH FACC, ALI FACP [...] CCDS Ot I25.10 ATHSCL HEART DISEASE OF [place] CORONARY 04/29/2017 DAVE MARSH [facility], ALI FACP CCDS Ot I65.23 OCCLUSION AND STENOSIS OF BILATERAL [place] 04/29/2017 DAVE MARSH FACC, ALI FACP CCDS Ot I73.9 PERIPHERAL VASCULAR DISEASE, UNSPECIFIED 04/29/2017 DAVE MARSH FACDavid, ALI FACP CCDS Ot J43.8 OTHER EMPHYSEMA 04/29/2017 DAVE MARSH [facility], ALI FACP CCDS Ot R00.2 PALPITATIONS [...] E11.22 TYPE 2 DIABETES MELLITUS W DIABETIC BENCH HAND 04/29/2017 XUN MD, MARTINEZ-FLORA Ot E66.01 MORBID (SEVERE) OBESITY DUE TO EXCESS CA 04/29/2017 MARIBEL MARTIN MD Ot E83.42 HYPOMAGNESEMIA 04/29/2017 MARIBEL MARTIN MD, Ot F32.9 MAJOR DEPRESSIVE DISORDER, SINGLE EPISOD 04/29/2017 MARIBEL MARTIN MD, Ot F41.9 ANXIETY DISORDER, UNSPECIFIED 04/29/2017 MARIBEL MARTIN MD, Ot I12.9 HYPERTENSIVE CHRONIC KIDNEY DISEASE W ST 04/29/2017 MARIBEL MARTIN MD, Ot I25.10 ATHSCL HEART DISEASE OF [place] CORONARY 04/29/2017 MARIBEL MARTIN MD, Ot I65.23 OCCLUSION AND STENOSIS OF BILATERAL [place] 04/29/2017 MARIBEL MARTIN MD, Ot N18.9 CHRONIC KIDNEY DISEASE, UNSPECIFIED 04/29/2017 MARIBEL MARTIN MD, Ot Z68.41 BODY MASS INDEX (BMI) 40.0-44.9, ADULT 04/29/2017 MARIBEL MARTIN MD Ot Z79.4 JAIL (CURRENT) USE OF INSULIN 04/29/2017 MARIBEL MARTIN MD, Ot Z79.899 OTHER TANK CREWMEMBER (CURRENT) DRUG THERAPY 04/29/2017 URBAN JOHNSON APRN Ot E11.9 TYPE 2 DIABETES MELLITUS WITHOUT COMPLIC 04/29/2017 URBAN JOHNSON APRN Ot F41.9 ANXIETY DISORDER, UNSPECIFIED 04/29/2017 URBAN JOHNSON APRN Ot I12.0 HYP CHR KIDNEY DISEASE W STAGE 5 CHR KID 04/29/2017 URBAN JOHNSON APRN Ot I25.10 ATHSCL HEART DISEASE OF [place] CORONARY 04/29/2017 URBAN JOHNSON APRN Ot I51.7 CARDIOMEGALY 04/29/2017 URBAN JOHNSON APRN Ot J44.9 CHRONIC OBSTRUCTIVE PULMONARY DISEASE, U 04/29/2017 URBAN JOHNSON APRN Ot K21.9 GASTRO-ESOPHAGEAL REFLUX DISEASE WITHOUT 04/29/2017 URBAN JOHNSON APRN Ot M79.7 FIBROMYALGIA 04/29/2017 URBAN JOHNSON APRN Ot N18.6 END STAGE RENAL DISEASE 04/29/2017 URBAN JONHSON APRN Ot R07.89 OTHER CHEST PAIN 04/29/2017 URBAN JOHNSON APRN Ot R07.9 CHEST PAIN, UNSPECIFIED 04/29/2017 URBAN JOHNSON APRN Ot Z79.4 JAIL (CURRENT) USE OF INSULIN 04/29/2017 URBAN JOHNSON APRN Ot Z79.82 JAIL (CURRENT) USE OF ASPIRIN 04/29/2017 URBAN JOHNSON APRN Ot Z79.899 OTHER TANK CREWMEMBER (CURRENT) DRUG THERAPY 04/29/2017 URBAN JOHNSON APRN [...] APRN Ot I25.10 ATHSCL HEART DISEASE OF [place] CORONARY 05/01/2017 URBAN JOHNSON APRN Ot I51.7 CARDIOMEGALY 05/01/2017 URBAN JOHNSON APRN Ot J44.9 CHRONIC OBSTRUCTIVE PULMONARY DISEASE, U 05/01/2017 URBAN JOHNSON APRN Ot K21.9 GASTRO-ESOPHAGEAL REFLUX DISEASE WITHOUT 05/01/2017 URBAN JOHNSON APRN Ot M79.7 FIBROMYALGIA 05/01/2017 URBAN JOHNSON APRN Ot N18.6 END STAGE RENAL DISEASE 05/01/2017 URBAN JOHNSON APRN Ot R07.89 OTHER CHEST PAIN 05/01/2017 URBAN JOHNSON APRN Ot R07.9 CHEST PAIN, UNSPECIFIED 05/01/2017 URBAN JOHNSON APRN Ot Z79.4 JAIL (CURRENT) USE OF INSULIN 05/01/2017 URBAN JOHNSON APRN Ot Z79.82 TANK CREWMEMBER (CURRENT) USE OF ASPIRIN 05/01/2017 URBAN JOHNSON APRN Ot Z79.899 OTHER JAIL (CURRENT) DRUG THERAPY 05/01/2017 URBAN JOHNSON APRN [...] E11.22 TYPE 2 DIABETES MELLITUS W DIABETIC BENCH HAND 05/02/2017 DARLENE MYERS MD Ot F41.0 PANIC DISORDER WITHOUT AGORAPHOBIA 05/02/2017 DARLENE YMERS MD Ot I12.0 HYP CHR KIDNEY DISEASE W STAGE 5 CHR KID 05/02/2017 DARLENE MYRES MD Ot I24.9 ACUTE ISCHEMIC HEART DISEASE, UNSPECIFIE 05/02/2017 DARLENE MYERS MD Ot I25.10 ATHSCL HEART DISEASE OF [place] CORONARY 05/02/2017 DARLENE MYERS MD Ot J44.9 [...] PAIN 05/02/2017 DARLENE MYERS MD Ot Z79.4 JAIL (CURRENT) USE OF INSULIN 05/02/2017 DARLENE MYERS MD Ot Z79.82 TANK CREWMEMBER (CURRENT) USE OF ASPIRIN 05/02/2017 DARLENE MYERS MD Ot Z80.41 FAMILY HISTORY OF MALIGNANT NEOPLASM OF 05/02/2017 DARLENE MYERS MD Ot Z82.49 FAMILY HX OF ISCHEM HEART DIS AND OTH DI 05/02/2017 DARLENE MYERS MD Ot Z86.19 PERSONAL HISTORY OF [...] E11.22 TYPE 2 DIABETES MELLITUS W DIABETIC BENCH HAND 05/06/2017 DARLENE MYERS MD Ot F41.0 PANIC DISORDER WITHOUT AGORAPHOBIA 05/06/2017 DARLENE MYERS MD Ot I12.0 HYP CHR KIDNEY DISEASE W STAGE 5 CHR KID 05/06/2017 DARLENE MYERS MD Ot I24.9 ACUTE ISCHEMIC HEART DISEASE, UNSPECIFIE 05/06/2017 DARLENE MYERS MD Ot I25.10 ATHSCL HEART DISEASE OF [place] CORONARY 05/06/2017 DARLENE MYERS MD Ot J44.9 [...] PAIN 05/06/2017 DARLENE MYERS MD Ot Z79.4 TANK CREWMEMBER (CURRENT) USE OF INSULIN 05/06/2017 DARLENE MYERS MD Ot Z79.82 TANK CREWMEMBER (CURRENT) USE OF ASPIRIN 05/06/2017 DARLENE MYERS [...] E11.22 TYPE 2 DIABETES MELLITUS W DIABETIC BENCH HAND 05/07/2017 TREVOR TURCIOS MD, Ot F41.0 PANIC DISORDER WITHOUT AGORAPHOBIA 05/07/2017 TREVOR TURCIOS MD, Ot I12.0 HYP CHR KIDNEY DISEASE W STAGE 5 CHR KID 05/07/2017 TREVOR TURCIOS MD, Ot I25.10 ATHSCL HEART DISEASE OF [place] CORONARY 05/07/2017 TREVOR TURCIOS MD, Ot J44.9 CHRONIC OBSTRUCTIVE PULMONARY DISEASE, U 05/07/2017 TREVOR TURCIOS MD, Ot K21.9 GASTRO-ESOPHAGEAL REFLUX DISEASE WITHOUT 05/07/2017 TREVOR TURCIOS MD Ot M19.90 UNSPECIFIED OSTEOARTHRITIS, UNSPECIFIED 05/07/2017 TREVOR TURCIOS MD, Ot N18.6 END STAGE RENAL DISEASE 05/07/2017 TREVOR TURCIOS MD Ot R07.89 OTHER CHEST PAIN 05/07/2017 TREVOR TURCIOS MD, Ot Z79.4 TANK CREWMEMBER (CURRENT) USE OF INSULIN 05/07/2017 TREVOR TURCIOS MD, Ot Z79.82 JAIL (CURRENT) USE OF ASPIRIN 05/07/2017 TREVOR TURCIOS [...] E11.22 TYPE 2 DIABETES MELLITUS W DIABETIC BENCH HAND 05/10/2017 TREVOR TURCIOS MD Ot F41.0 PANIC DISORDER WITHOUT AGORAPHOBIA 05/10/2017 TREVOR TURCIOS MD Ot I12.0 HYP CHR KIDNEY DISEASE W STAGE 5 CHR KID 05/10/2017 TREVOR TURCIOS MD Ot I25.10 ATHSCL HEART DISEASE OF [place] CORONARY 05/10/2017 TREVOR TURCIOS MD Ot J44.9 CHRONIC OBSTRUCTIVE PULMONARY DISEASE, U 05/10/2017 TREVOR TURCIOS MD, Ot K21.9 GASTRO-ESOPHAGEAL REFLUX DISEASE WITHOUT 05/10/2017 TREVOR TURCIOS MD Ot M19.90 UNSPECIFIED OSTEOARTHRITIS, UNSPECIFIED 05/10/2017 TREVOR TURCIOS MD Ot N18.6 END STAGE RENAL DISEASE 05/10/2017 TREVOR TURCIOS MD Ot R07.89 OTHER CHEST PAIN 05/10/2017 TREVOR TURCIOS MD Ot Z79.4 JAIL (CURRENT) USE OF INSULIN 05/10/2017 TREVOR TURCIOS MD, Ot Z79.82 JAIL (CURRENT) USE OF ASPIRIN 05/10/2017 TREVOR TURCIOS [...] ESOPHAGOGASTRODUODENOSCOPY [EGD] W/CLOSE 02/07/2014 45.23 COLONOSCOPY 02/07 27611 PSYCH DIAGNOSTIC EVALUATION 03/15/2014 97626 PSYTX PT&/FAMILY 45 MINUTES 04/26/2014 50292 PSYTX PT&/FAMILY 60 MINUTES 05/11/2014 91236 PSYTX PT&/FAMILY 45 MINUTES 05/15/2014 76971 PSYTX PT&/FAMILY 45 MINUTES 05/15/2014 86838 PSYTX PT&/FAMILY 45 MINUTES 06/12/2014 40221 PSYTX PT&/FAMILY 45 MINUTES 06/12/2014 33200 PSYTX PT&/FAMILY 45 MINUTES 06/26/2014 31636 PSYTX PT&/FAMILY 45 MINUTES 07/10/2014 80808 PSYTX PT&/FAMILY 45 MINUTES 08/07/2014 47473 PSYTX PT&/FAMILY 45 MINUTES 09/18/2014 00.41 PROCEDURE ON TWO VESSELS 11/01/2014 00.46 INSERTION OF TWO VASCULAR STENTS 11/01/2014 00.66 PERCUTANEOUS TRANSLUMINAL CORONARY ANGIO 11/01/2014 36.06 CORONARY ARTERY STENT INSERTION NON-DRUG 11/01/2014 36.07 INSRT OF DRUG-ELUTING CORON ARTERY STENT 11/01/2014 37.22 LEFT HEART CARDIAC CATH 11/01/2014 88.56 CORONAR ARTERIOGR-2 CATH 11/01/2014 26238 PSYTX PT&/FAMILY 45 MINUTES 11/28/2014 01350 PSYTX PT&/FAMILY 45 MINUTES 01/01/2015 07639YE DILATION OF CORONARY ARTERY, ONE SITE, P 01/14/2016 [id number] MEASURE OF CARDIAC SAMPL PRESSURE, L H 01/14/2016 [id number] FLUOROSCOPY OF MULT COR ART USING L OSM 01/14/2016 Encounters ACCT No. Visit Date/Time Discharge Status Pt. Type Provider Facility Loc./Unit Complaint [id number] 01/01/2015 10:41:00 01/01/2015 23: 59:59 CLS Outpatient SOPHIA LSKAREN [id number] 11/28/2014 10:59:00 11/28/2014 23: 59:59 CLS Outpatient SOPHIA LSCS, KAREN Zaidi [id number] 09/18/2014 10:06:00 09/18/2014 23: 59:59 CLS Outpatient SOPHIA LSCS, KAREN Zaidi [id number] 08/07/2014 10:01:00 08/07/2014 23: 59:59 CLS Outpatient SOPHIA LSCSKAREN [id number] 07/10/2014 10:13:00 07/10/2014 23: 59:59 CLS Outpatient SOPHIA LSCS, KAREN Zaidi [id number] 06/26/2014 10:19:00 06/26/2014 23: 59:59 CLS Outpatient SOPHIA LSCS, KAREN Zaidi [id number] 06/12/2014 10:01:00 06/12/2014 23: 59:59 CLS Outpatient SOPHIA LSCS, KAREN Zaidi [id number] 05/15/2014 13:01:00 05/15/2014 23: 59:59 CLS Outpatient SOPHIA LSCS, KAREN Zaidi [id number] 05/10/2014 16:00:00 05/10/2014 23: 59:59 [facility] Outpatient ROBERTS JURGEN BRIONES [id number] 04/26/2014 13:46:00 04/26/2014 23: 59:59 CLS Outpatient KAREN ECHAVARRIA [id number] 03/14/2014 12:05:00 03/14/2014 23: 59:59 CLS Outpatient JURGEN CASTORENA LCPC [id number] 05/14/2017 08:40:00 2016 10:56:00 DIS Emergency TREVOR TURCIOS MD [facility] ER BLEEDING FROM WOUND [id number] 05/13/2017 12:43:00 2016 23:59:59 CLS Outpatient HAYLEE HERNANDEZ MD [facility] LAB CBC W AUTO DIFFERENTIAL PANEL IN BLOOD [id number] 05/13/2017 10:27:00 2016 23:59:59 CLS Outpatient HAYLEE HERNANDEZ MD [facility] WOUNDCARE [id number] 05/07/2017 12:43:00 2016 17:00:00 DIS Emergency TREVOR TURCIOS MD [facility] ER CP/ABD PAIN [id number] 04/30/2017 00:11:00 2016 05:45:00 DIS Outpatient DARLENE MYERS MD [facility] ER HIGH BLOOD PRESSURE,CHEST PAIN [id number] 04/29/2017 15:45:00 2016 20:55:00 DIS Emergency URBAN JOHNSON APRN [facility] ER CHEST PAIN [id number] 04/01/2017 09:24:00 2016 11:33:00 DIS Emergency VERNON COLLIER MD [facility] ER CHEST PAIN [id number] 03/19/2017 03:22:00 2016 05:52:00 DIS Emergency VERNON COLLIER MD [facility] ER CHEST PAIN [id number] 01/29/2017 10:10:00 2016 13:01:00 DIS Emergency TREVOR TURCIOS MD [facility] ER CHEST PAIN [id number] 01/18/2017 08:44:00 2016 11:17:00 DIS Emergency JOHNSONURBAN APRN [facility] ER ABD PAIN [id number] 01/06/2017 00:09:00 2016 23:59:59 CLS Preadmit MARIO MARSH, MARIBEL [facility] ONC [id number] 01/06/2017 00:44:00 2016 03:31:00 DIS Emergency ANDREA DO MARCELA D [facility] ER CP,SYNCOPAL [id number] 12/10/2016 12:15:00 2016 00:01:00 DIS Outpatient MALVIN PAYAN MD [facility] ONC [id number] 12/18/2016 08:21:00 2016 12:09:00 DIS Emergency TREVOR TURCIOS MD [facility] ER CHEST PAIN [id number] 10/10/2016 19:42:00 2016 23:30:00 DIS Emergency GUMARO HEBERT MD [facility] ER CHEST PAIN [id number] 06/30/2016 11:21:00 2016 00:01:00 DIS Outpatient MALVIN PAYAN MD [facility] ONC [id number] 09/23/2016 20:23:00 2016 23:15:00 DIS Emergency ANNE MARIE ROSEN DO [facility] ER CHEST PAIN [id number] 08/24/2016 15:36:00 2015 19:57:00 DIS Emergency VERNON COLLIER MD [facility] ER ABD PAIN [id number] 08/13/2016 21:22:00 2015 00:39:00 DIS Emergency VERNON COLLIER MD [facility] ER CHEST PAIN [id number] 07/23/2016 08:36:00 2015 23:59:59 CLS Outpatient ANTONIO MTZ MD [facility] LAB CATARACT [id number] 05/05/2016 09:44:00 2015 15:02:00 DIS Outpatient MALVIN PAYAN MD [facility] ONC [id number] 05/20/2016 17:20:00 2015 20:24:00 DIS Emergency ANNE MARIE ROSEN DO [facility] ER CP [id number] 03/03/2016 09:48:00 2015 00:01:00 DIS Outpatient MALVIN PAYAN MD [facility] ONC [id number] 02/29/2016 19:10:00 2015 21:59:00 DIS Emergency GUMARO HEBERT MD [facility] ER CHEST PAIN [id number] 02/24/2016 14:17:00 2015 23:59:59 CLS Outpatient REJI MA MD [facility] HH CKD, DIALYSIS, SCREENING [id number] 01/15/2016 09:36:00 2015 11:05:00 DIS Inpatient ISABEL HUMPHREYS MD [facility] CSD CHEST PAIN [id number] 01/09/2016 10:33:00 2015 23:59:59 CLS Outpatient DULCE WILL MD [facility] LAB [id number] 12/11/2015 10:17:00 2015 23:59:59 CLS Outpatient DULCE WILL MD [facility] LAB [id number] 11/27/2015 10:43:00 2015 00:01:00 DIS Outpatient MALVIN PAYAN MD [facility] ONC [id number] 11/18/2015 15:38:00 2015 23:59:59 CLS Outpatient KARI EDEN APRN [facility] RT DYSPNEA [id number] 11/04/2015 09:13:00 2015 23:59:59 CLS Outpatient ISABEL HUMPHREYS MD [facility] LAB HYPERTENSION, DIABETES [id number] 10/23/2015 08:55:00 2015 23:59:59 CLS Outpatient DAVE MARSH FACC, EARL GASCA CCDS [facility] RAD LEFT LEG CLAUDICATION [id number] 10/22/2015 08:11:00 2015 23:59:59 CLS Outpatient DAVE MARSH FACDavid, EARL GASCA CCDS [facility] CARD PALPTIATIONS,CAD,CKD,COPD [id number] 08/20/2015 14:02:00 2014 00:01:00 DIS Outpatient MALVIN PAYAN MD [facility] ONC [id number] 07/04/2015 12:44:00 2014 23:59:59 CLS Outpatient DAVE MARSH FACC, EARL GASCA CCDS [facility] LAB HTN,OBESITY,DM II,COPD,CKD, CAD [id number] 07/04/2015 12:32:00 2014 23:59:59 CLS Outpatient DULCE WILL MD [facility] LAB HTN,DM II,COPD,CKD,CAD,OBESITY [id number] 06/13/2015 17:40:00 2014 16:05:00 DIS Inpatient ISABEL HUMPHREYS MD [facility] ICU CHEST PAIN,HTN [id number] 05/30/2015 11:32:00 2014 00:01:00 DIS Outpatient MALVIN PAYAN MD [facility] ONC [id number] 05/27/2015 13:07:00 2014 15:55:00 DIS Emergency VERNON COLLIER MD [facility] ER LOW BLOOD SUGAR [id number] 05/16/2015 09:58:00 2014 00:01:00 DIS Outpatient MALVIN PAYAN MD [facility] ONC [id number] 04/26/2015 09:46:00 2014 10:44:00 DIS Inpatient ISABEL HUMPHREYS MD [facility] 4TH HYPERKALEMIA,DEPRESSION,FATIGUE,ANEMIA [id number] 04/19/2015 10:53:00 2014 15:55:00 DIS Emergency GUMARO HEBERT MD [facility] ER SOA [id number] 03/21/2015 10:35:00 2014 23:59:59 CLS Outpatient NICOLETTE MARSH, DULCE [facility] LAB [id number] 03/11/2015 14:46:00 2014 15:10:00 DIS Outpatient KARI EDEN APRN [facility] SLEEP Observed Apnea, Snoring, HTN, EDS, Heart Disease [id number] 02/07/2015 10:55:00 2014 00:01:00 DIS Outpatient MALVIN PAYAN MD [facility] ONC [id number] 11/22/2014 23:15:00 2014 16:37:00 DIS Inpatient ISABEL HUMPHREYS MD [facility] CSD CHEST PAIN, HYPERTENSIVE URGENCY, R FACE TINGLING [id number] 09/20/2014 20:00:00 2014 23:59:59 CLS Preadmit JASMIN GUILLEN APRN [facility] SLEEP [id number] 04/17/2014 14:36:00 2013 00:01:00 DIS Outpatient ANTONIO MTZ MD [facility] LAB DIABETES [id number] 06/22/2014 10:35:00 2013 23:59:59 CLS Outpatient ISABEL HUMPHREYS MD [facility] RAD ROUTINE [id number] 02/26/2014 13:05:00 2013 00:01:00 DIS Outpatient MALVIN PAYAN MD [facility] ONC [id number] 05/17/2014 18:14:00 2013 22:20:00 DIS Emergency CASSIDY ACOSTA [facility] ER ABDOMINAL PAIN RIGHT SIDE [id number] 03/14/2014 08:31:00 2013 23:59:59 CLS Outpatient ISABEL HUMPHREYS MD [facility] RAD CHANGE IN [id number] 02/20/2014 09:24:00 2013 12:40:00 DIS Inpatient ISABEL HUMPHREYS MD [facility] 4TH ANEMIA,EDEMA, DEPRESSION [id number] 02/01/2014 00:17:00 2013 12:25:00 DIS Inpatient ISABEL HUMPHREYS MD [facility] SURGICAL CHEST PAIN,HYPERTENSIVE URGENCY, ANXIETY,HYPERKALEM [id number] 11/30/2013 13:56:00 2013 23:59:59 CLS Outpatient MARIBELL MARAVILLA [facility] CARD CAD,HTN,HLD [id number] 10/02/2013 15:06:00 2013 23:59:59 CLS Outpatient ISABEL HUMPHREYS MD [facility] LAB ANEMIA,COLD [id number] 08/19/2013 10:04:00 2013 16:10:00 DIS Inpatient ISABEL HUMPHREYS MD [facility] 4TH CELLULITIS/MRSA [id number] 04/19/2013 16:55:00 2012 12:45:00 DIS Inpatient ISABEL HUMPHREYS MD [facility] 4TH UNCONTROLLED DIABETES,DIZZINESS [id number] 04/17/2013 14:03:00 2012 19:00:00 DIS Emergency JESSIKA DO, ANNE MARIE K [facility] ER MULTIPLE COMPLAINTS [id number] 04/06/2013 13:13:00 2012 23:59:59 CLS Outpatient MARIBELL MARAVILLA [facility] LAB ELEVATED CR [id number] 03/20/2013 15:06:00 2012 23:59:59 CLS Outpatient ISABEL HUMPHREYS MD [facility] LAB ANXIETY,DEPRESSION [id number] 02/27/2013 15:15:00 2012 08:04:00 DIS Inpatient ISABEL HUMPHREYS MD [facility] 4TH STAPH R EYE EAR [id number] 02/21/2013 09:59:00 2012 13:37:00 DIS Emergency CASSDIY ACOSTA [facility] ER FALL/EYE REDNESS EAR/HEAD PAIN [id number] 03/11/2015 14:49:00 Document Registration [id number] 03/11/2015 14:48:00 Document Registration [id number] 03/11/2015 14:48:00 Document Registration [id number] 03/11/2015 14:47:00 Document Registration [id number] 03/11/2015 14:47:00 Document Registration [id number] 03/11/2015 14:47:00 Document Registration [id number] 10/31/2014 22:49:00 Document Registration [id number] 07/16/2014 00:00:00 Document Registration [id number] 08/19/2012 00:02:00 Document Registration [id number] 03/17/2012 12:32:00 Document Registration [id number] 02/22/2012 07:51:00 Document Registration [id number] 01/06/2012 12:15:00 Document Registration [id number] 07/23/2011 14:38:00 Document Registration [id number] 05/19/2011 10:32:00 Document Registration [id number] 01/24/2011 08:29:00 Document Registration [id number] 07/18/2010 18:45:00 Document Registration [id number] 12/19/2009 08:50:00 Document Registration [id number] 11/06/2009 12:08:00 Document Registration [id number] 11/05/2009 08:36:00 Document Registration [id number] 08/11/2016 08:22:00 2015 14:53:00 PAZ Morrison MD, [facility] RENATA
--- NOTE | 2017-06-01 10:45 | ED Chest Pain ---
General Chief Complaint: Chest Pain Stated Complaint: CP/SOB/STOM PAIN Source: patient Exam Limitations: no limitations History of Present Illness Time seen by provider: 10:35 Initial Comments Here by EMS with report of abdominal pain that is very sharp and persistent that has moved up to her chest that she describes as a pressure. This is been going on this morning for a few hours but she has had intermittently over the last several days to weeks. She also reports several episodes of syncope. She states that she goes to get up and then passes out. She is not sure what that is about. She denies hitting her head. She states each time she was guided to the floor or to her chair by her caregiver. Denies nausea or vomiting. Denies fever or chills. She is very upset that they have not found out what is going on with her this causing these problems. She states that she has not had any workup for her syncope but admits that she had a rather detailed chest pain workup a few days ago. Timing/Duration: 1 week, getting worse, intermittent Severity/Quality: moderate Location: central Radiation: epigastric Activities at Onset: none Prior CP/Workup: cardiac cath, echocardiography, heart attack Modifying Factors: worse with exercise, improves with rest ASA po HR BUSINESS PARTNER: Yes (324 mg by EMS) NTG SL HR BUSINESS PARTNER: Yes (nitro paste anterior chest wall at home) Associated Symptoms: No back pain, No fever/chills, No nausea/vomiting, shortness of breath, weakness Allergies and Home Medications Allergies Coded Allergies: propoxyphene (Verified Allergy, Mild, DIZZINESS, 02/20/14) codeine (Verified Allergy, Unknown, CAN TAKE OXYCODONE, 02/20/14) esomeprazole (Verified Allergy, Unknown, 02/20/14) ketorolac (Verified Allergy, Unknown, PT TAKES ASPIRIN AT HOME, 02/20/14) levofloxacin (Verified Allergy, Unknown, 02/20/14) promethazine (Verified Allergy, Unknown, 02/20/14) Uncoded Allergies: TAPE (Adverse Reaction, Mild, RASH, 11/23/14) Home Medications Albuterol Sulfate 8.5 Gm Hfa.aer.ad, 2 PUFF INH Q4H PRN for SHORTNESS OF BREATH, (Reported) Aspirin 81 Mg Tablet.dr, 81 MG PO DAILY, (Reported) Budesonide/Formoterol Fumarate 10.2 Gm Hfa.aer.ad, 2 PUFF INH BID, (Reported) Cephalexin 500 Mg Capsule, 500 MG PO BID, #14 Prescribed by: VERNON FLORES on 08/24/167 Clopidogrel Bisulfate 75 Mg Tablet, 75 MG PO HS, (Reported) Cyanocobalamin 50 Mcg Lozenge, 50 MCG PO DAILY, (Reported) Doxazosin Mesylate 4 Mg Tablet, 4 MG PO DAILY, (Reported) Ezetimibe 10 Mg Tablet, 10 MG PO HS, (Reported) Furosemide 40 Mg Tablet, 40 MG PO DAILY, (Reported) Gabapentin 300 Mg Capsule, 300 MG PO TID, (Reported) Gentamicin Sulfate 5 Ml Drops, 1 DROP OU Q6H PRN for ALLERGIES, (Reported) Ibuprofen 800 Mg Tablet, 800 MG PO BID PRN for PAIN, (Reported) Insulin Aspart 100 Unit/1 Ml Susp, SQ UD, (Reported) 201-250 = 2 UNITS 251-300 = 4 UNITS 301-350 = 6 UNITS 351-400 = 8 UNITS IF > THAN 400, CALL PHYSICIAN Insuln Asp Prt/Insulin Aspart 300 Units/3 Ml Solution, 10 UNITS SQ HS, (Reported ) Insuln Asp Prt/Insulin Aspart 300 Units/3 Ml Solution, 30 UNITS SC DAILY, ( Reported) Isosorbide Mononitrate 30 Mg Tab.er.24h, 15 MG PO HS, (Reported) TAKES 1/2 (30MG) TABLET Levothyroxine Sodium 50 Mcg Tablet, 50 MCG PO DAILY, (Reported) Lorazepam 0.5 Mg Tablet, 0.5 MG PO TID PRN for ANXIETY, (Reported) Metoprolol Succinate 200 Mg Tab.er.24h, 200 MG PO DAILY, (Reported) Montelukast Sodium 10 Mg Tablet, 10 MG PO HS, (Reported) Nitroglycerin 0.4 Mg Tab.subl, 0.4 MG SL UD PRN for CHEST PAIN, (Reported) PLACE 1 TABLET UNDER TONGUE EVERY 5 MINUTES X 3 DOSES NEEDED FOR CHEST PAIN Nystatin 15 Gm Powder, TOP BID PRN for RASH, (Reported) Omeprazole 40 Mg Capsule.dr, 40 MG PO DAILY, (Reported) Ondansetron HCl 4 Mg Tablet, 4 MG SL TID PRN for NAUSEA, (Reported) Oxycodone HCl/Acetaminophen 1 Each Tablet, 1 TAB PO Q6H PRN for PAIN, (Reported) Review of Systems Constitutional: see HPI, No chills, No fever EENTM: No Symptoms Reported Respiratory: No Symptoms Reported Cardiovascular: See HPI, Chest Pain, Edema, Lightheadedness, Syncope Gastrointestinal: Abdominal Pain, Denies Nausea, Denies Vomiting Genitourinary: No Symptoms Reported Musculoskeletal: no symptoms reported Skin: see HPI, change in color, lesions Psychiatric/Neurological: No Symptoms Reported All Other Systems Reviewed Negative Unless Noted: Yes Past Mjdasao-Uofisy-Aimeai Hx Patient Social History Alcohol Use: Denies Use Recreational Drug Use: No Smoking Status: Never a Smoker 2nd Hand Smoke Exposure: No Recent Hopitalizations: Yes Immunizations Up To Date Tetanus Booster (TDap): Unknown PED Vaccines UTD: Yes Date of Pneumonia Vaccine: Feb 04, 2011 Date of Influenza Vaccine: Jun 08, 2017 Seasonal Allergies Seasonal Allergies: Yes Surgeries History of Surgeries: Yes (gallbladder, hiatal hernia, back and eye surgery) Surgeries: Abdominal, Appendectomy, Arteriovenous Shunt, Cardiac, Coronary Stent, Dialysis, Eye Surgery, Gallbladder, Hysterectomy, Oophorectomy, Orthopedic, Vascular Surgery Respiratory History of Respiratory Disorde: Yes Respiratory Disorders: Asthma, COPD Currently Using CPAP: No Currently Using BIPAP: No Cardiovascular History of Cardiac Disorders: Yes Cardiac Disorders: Coronary Artery Disease, Hypertension Neurological History of Neurological Disord: Yes Neurological Disorders: Stroke Reproductive System Hx Reproductive Disorders: Yes Sexually Transmitted Disease: No HIV/AIDS: No 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 Genitourinary History of Genitourinary Disor: No Genitourinary Disorders: Renal Failure, Dialysis Gastrointestinal History of Gastrointestinal Di: Yes (SPASTIC COLON) Gastrointestinal Disorders: Gastroesophageal Reflux, Diverticulosis, Pancreatitis Musculoskeletal History of Musculoskeletal Dis: Yes (SCIATICA CHRONIC, RIGHT ARM FX 2015- CHRONIC RIGHT ARM PAIN ) Musculoskeletal Disorders: Arthritis, Fibromyalgia, Chronic Back Pain, Fractures Endocrine History of Endocrine Disorders: Yes Endocrine Disorders: Diabetes, Insulin dep, Hypothyroidsim HEENT History of HEENT Disorders: Yes HEENT Disorders: Cataract Cancer History of Cancer: No Psychosocial History of Psychiatric Problem: Yes (PANIC ATTACKS) Behavioral Health Disorders: Anxiety Integumentary History of Skin or Integumenta: Yes (HX MRSA ) Blood Transfusions History of Blood Disorders: Yes (being treated by dr. rogel for low blood counts /ANEMIA) Adverse Reaction to a Blood Tr: No (does not want to receieve blood products) Reviewed Nursing Assessment Reviewed/Agree w Nursing PMH: Yes Family Medical History Family Medial History: Cancer 03 MOTHER (OVARIAN CANCER) Congestive heart failure 09 BROTHER ( OF CHF) DVT 09 SISTER FH: COPD (chronic obstructive pulmonary disease) 09 SISTER FH: bipolar disorder 09 BROTHER FH: emphysema 03 FATHER FHx: multiple sclerosis 09 BROTHER Family history: Cardiovascular disease 03 FATHER, Onset:Unknown Family history: Diabetes mellitus 03 MOTHER 09 BROTHER Family history: Hypertension 09 SISTER (ACTUALLY HAS LOW BLOOD PRESSURE NOT HIGH) Physical Exam Vital Signs Vital Sign - Last 12Hours 06/01/17 06/01/17 06/01/17 10:10 11:35 13:55 Temp 98.3 Pulse 78 Resp 20 B/P (MAP) 196/97 Pulse Ox 97 O2 Delivery Nasal Cannula O2 Flow Rate 2.00 FiO2 80 Capillary Refill : General Appearance: WD/WN, Anxious, Chronically ill, Mild Distress HEENT: PERRL/EOMI, Pharynx Normal Neck: Non Tender, Supple Respiratory: Crackles (bilateral bases), No Wheezing Cardiovascular: Regular Rate, Rhythm, No Murmur Gastrointestinal: Non Tender, Soft Extremity: Normal Range of Motion, Non Tender Neurologic/Psychiatric: Alert, Oriented x3 Skin: Normal Color, Warm/Dry Date of ETT Placement: Jun 01, 2017 Time of ETT Placement: 13:41 Intubation Method: orotracheal Medications: Rocuronium, Versed Positive End Tide CO2: Yes Breath Sounds after Intubation: bilateral-equal Intubation Complications: no complications Post Intubation Xray: Yes Progress/Xray Impression: ET tube in good position. Progress Intubated emergently for airway protection. Placed by Giovanni Perez APRN under my direct supervision. Positive color change and bilateral breath sounds without epigastric sounds after placement. Chest x-ray confirms placement. Progress/Results/Core Measures Results/Orders Lab Results Laboratory Tests Test 06/01/17 10:50 06/01/17 11:30 06/01/17 14:15 Range/Units White Blood Count 3.3 L 4.3-11.0 10^3/uL Red Blood Count 3.41 L 4.35-5.85 10^6/uL Hemoglobin 10.6 L 11.5-16.0 G/DL Hematocrit 32 L 35-52 % Mean Corpuscular Volume 94 80-99 FL Mean Corpuscular Hemoglobin 31 25-34 PG Mean Corpuscular Hemoglobin Concent 33 32-36 G/DL Red Cell Distribution Width 12.6 10.0-14.5 % Platelet Count 95 L 130-400 10^3/uL Mean Platelet Volume 10.2 7.4-10.4 FL Neutrophils (%) (Auto) 74 42-75 % Lymphocytes (%) (Auto) 15 12-44 % Monocytes (%) (Auto) 9 0-12 % Eosinophils (%) (Auto) 2 0-10 % Basophils (%) (Auto) 1 0-10 % Neutrophils # (Auto) 2.4 1.8-7.8 X 10^3 Lymphocytes # (Auto) 0.5 L 1.0-4.0 X 10^3 Monocytes # (Auto) 0.3 0.0-1.0 X 10^3 Eosinophils # (Auto) 0.1 0.0-0.3 10^3/uL Basophils # (Auto) 0.0 0.0-0.1 10^3/uL Sodium Level 132 L 135-145 MMOL/L Potassium Level 4.4 3.6-5.0 MMOL/L Chloride Level 95 L 98-107 MMOL/L Carbon Dioxide Level 26 21-32 MMOL/L Anion Gap 11 5-14 MMOL/L Blood Urea Nitrogen 19 H 7-18 MG/DL Creatinine 2.79 H 0.60-1.30 MG/DL Estimat Glomerular Filtration Rate 17 BUN/Creatinine Ratio 7 Glucose Level 240 H 70-105 MG/DL Calcium Level 8.6 8.5-10.1 MG/DL Magnesium Level 2.5 H 1.8-2.4 MG/DL Total Bilirubin 0.6 0.1-1.0 MG/DL Aspartate Amino Transf (AST/SGOT) 12 5-34 U/L Alanine Aminotransferase (ALT/SGPT) 7 0-55 U/L Alkaline Phosphatase 99 40-136 U/L Myoglobin 160.6 H 10.0-92.0 NG/ML Troponin I < 0.30 <0.30 NG/ML Total Protein 6.9 6.4-8.2 GM/DL Albumin 3.4 3.2-4.5 GM/DL Prothrombin Time 14.3 12.2-14.7 SEC INR Comment 1.1 0.8-1.4 Activated Partial Thromboplast Time 30 24-35 SEC Blood Gas Puncture Site RT BRACH Blood Gas Patient Temperature 97.4 Arterial Blood pH 7.50 H 7.37-7.43 Arterial Blood Partial Pressure CO2 37 35-45 MMHG Arterial Blood Partial Pressure O2 134 H 79-93 MMHG Arterial Blood HCO3 28 H 23-27 MMOL/L Arterial Blood Total CO2 29.5 21.0-31.0 MMOL/L Arterial Blood Oxygen Saturation 100 94-100 % Arterial Blood Base Excess 4.9 H -2.5-2.5 MMOL/L Rupesh Test YES-POS Blood Gas Ventilator Setting YES Blood Gas Inspired Oxygen 60% My Orders Orders - GUMARO HEBERT MD Cbc With Automated Diff (06/01/17 10:30) Magnesium (06/01/17 10:30) Chest 1 View, Ap/Pa Only (06/01/17 10:30) Ekg Tracing (06/01/17 10:30) Cardiac Profile 1 (06/01/17 10:30) Comprehensive Metabolic Panel (06/01/17 10:30) Myoglobin Serum (06/01/17 10:30) Protime With Inr (06/01/17 10:30) Partial Thromboplastin Time (06/01/17 10:30) O2 (06/01/17 10:30) Monitor-Rhythm Ecg Trace Only (06/01/17 10:30) Lipid Panel (06/02/17 06:00) Saline Lock/Iv-Start (06/01/17 10:30) Morphine Injection (Morphine Injection (06/01/17 11:21) Ct Head Wo (06/01/17 11:21) Fentanyl Injection (Sublimaze Injection (06/01/17 12:43) Ct Abdomen/Pelvis Wo (06/01/17 12:43) Norepinephrine (Levophed) (06/01/17 13:34) D5w 250 Ml (Ivpb) (Dextrose 5% Water Iv (06/01/17 13:34) D5w 250 Ml (Ivpb) (Dextrose 5% Water Iv (06/01/17 13:38) Norepinephrine (Levophed) (06/01/17 13:38) Ventilator Settings Order (06/01/17 14:02) Chest 1 View, Ap/Pa Only (06/01/17 14:04) Arterial Blood Gas (06/01/17 14:04) Ekg Tracing (06/01/17 14:24) Vital Signs/I&O Vital Sign - Last 12Hours 06/01/17 06/01/17 06/01/17 06/01/17 10:10 10:10 10:30 11:35 Temp 98.3 Pulse 78 Resp 20 B/P (MAP) 196/97 Pulse Ox 97 97 O2 Delivery Nasal Cannula Room Air Nasal Cannula O2 Flow Rate 2.00 2.0 06/01/17 06/01/17 13:19 13:55 Temp 98.3 Pulse 73 Resp 16 Pulse Ox 100 FiO2 80 Progress Note : Progress Note Seen and evaluated. IV, labs, EKG and chest x-ray ordered. Patient did receive aspirin prior to arrival. She currently has nitro paste in place. Monitor patient. Morphine 5 mg IV for chest pain. Due to multiple falls, we will get CT of the head. 1240: Patient reports the pain medicine helped a little bit but not very much. She is very concerned that there is some severe going on and still complains of abdominal pain. CT head results reviewed including the need for MRI at some point. We will get CT abdomen and pelvis without contrast. I did compare the labs from previous. She is stable overall with respect to labs. Myoglobin is elevated but is typical and actually less than previous. Fentanyl 75 g IV ordered. Monitor patient. 1332: Called emergently to the room because of family members concerns of the patient not breathing. Pulse was checked and patient was in fact pulseless and apneic. CPR initiated and high flow O2 initiated. 1334: Pulse check shows patient in PEA with bradycardia rate of 10-15. Epinephrine 1 mg IV given. 1336 CPR stopped and spontaneous return of circulation noted with heart rate 130s. Patient had some airway via BVM. Blood pressure 85/30. Elected and intubation for airway protection. Versed 4 mg IV and rocuronium 50 mg IV given. Intubated 7.5 ET tube at 23 cm at the teeth. OG tube and Carrillo catheter placed. 1347 and tidal CO2 of 40. Placed on that with settings respiratory rate of 16, PEEP of 5 and tidal volume of 500, FiO2 of 60 percent. 1355: Heart rate 74 with sinus rhythm on monitor. 100 percent O2 sat on monitor. Blood pressure 123/79. Levophed available but not running at this time. 1356: I have spoken with the family about concerns. We will initiate transfer. [place] one call paged. 1408: I did discuss the case with Dr. Estrella, critical care high school professional at [facility] in [facility]. Case reviewed and he accepts patient for transfer. Patient will go by ground ambulance. I did discuss all of findings and concerns with family again and they are in agreement with transfer. Pending bed assignment. EMS in route. Patient will go by [facility]. ECG Initial ECG Impression Date: Jun 01, 2017 Initial ECG Impression Time: 10:21 Initial ECG Rate: 60 Initial ECG Rhythm: Normal Sinus Comment Sinus rhythm with normal axis. No evidence of ST elevation CO. Unchanged from previous of 05/27/17. Interpreted by me. Diagnostic Imaging Diagonstic Imaging: Xray Plain Films/CT/US/NM/MRI: chest Comments [place]IA [place], [place] NAME: MALVIN PRUETT [facility] REC#: [id number] PT STATUS: REG ER : 1950 PHYSICIAN: GUMARO HEBERT MD ADMIT DATE: 06/01/17/ER Draft Date of Exam:06/01/17 CHEST 1 VIEW, AP/PA ONLY Portable AP view of the chest. INDICATION: Chest pain. FINDINGS: The heart is moderately enlarged. There is mild pulmonary vascular congestion. There is no focal significant consolidation evident. There is a large bore venous catheters tunneled through the right internal jugular vein with the tip at the right atrium level. There is also an infusion port through the left subclavian approach with the tip at the SVC level. No significant effusion or pneumothorax. IMPRESSION: Cardiomegaly with pulmonary vascular congestion. Dictated on workstation # [id number] Dict: 06/01/17 1202 Trans: 06/01/17 1210 [facility] [id number] Interpreted by: SINDY BERTRAND MD Electronically signed by: Diagonstic Imaging: CT Plain Films/CT/US/NM/MRI: head Comments NAME: MALVIN PRUETT [facility] REC#: [id number] PT STATUS: REG ER : 1950 PHYSICIAN: GUMARO HEBERT MD ADMIT DATE: 06/01/17/ER Signed Date of Exam: 06/01/17 CT HEAD WO PROCEDURE: CT head without contrast. TECHNIQUE: Multiple contiguous axial images were obtained through the brain without the use of intravenous contrast. INDICATION: Syncope. COMPARISON: CT head without contrast 04/19/2015. FINDINGS: Again seen is chronic encephalomalacia in the left cerebellar hemisphere. Chronic infarct in the right basal ganglia. Diffuse low attenuation changes in the deep white matter of both cerebral hemispheres have mildly progressed. No intracranial hemorrhage, mass effect, hydrocephalus or extra-axial fluid collection. No CT evidence of large territorial infarct. Postoperative changes in the left globe. IMPRESSION: 1. Low-attenuation changes in the deep white matter of both cerebral hemispheres appears to have progressed since the prior exam. Although this may represent progression of chronic small vessel ischemic change, an acute or subacute process cannot be excluded. This could be better evaluated with MRI. 2. No intracranial hemorrhage. No CT evidence of a large territorial acute or subacute infarct. 3. Chronic infarcts in the left cerebellar hemisphere and right basal ganglia. Dictated by: Dictated on workstation # [id number] Dict: 06/01/17 1153 Trans: 06/01/17 1208 Interpreted by: SANDHYA VELÁZQUEZ MD Electronically signed by: SANDHYA VELÁZQUEZ MD 06/01/17 1208 Diagonstic Imaging: CT Plain Films/CT/US/NM/MRI: abdomen, pelvis Comments [facility]IA [facility] [place], [place] NAME: MALVIN PRUETT [facility] REC#: [id number] PT STATUS: REG ER : 1950 PHYSICIAN: GUMARO HEBERT MD ADMIT DATE: 06/01/17/ER Draft Date of Exam:06/01/17 CT ABDOMEN/PELVIS WO PROCEDURE: CT abdomen and pelvis without contrast. TECHNIQUE: Multiple contiguous axial images were obtained through the abdomen and pelvis without the use of intravenous contrast. INDICATION: Abdominal pain. COMPARISON: 05/17/2014. FINDINGS: The lung bases demonstrate no significant abnormality. There is a small pericardial effusion. Cardiac size is slightly prominent. The Liver, the adrenal glands, and the pancreas appear unremarkable. Cholecystectomy clips are seen. The spleen demonstrates pflj-zg-znwhtpom enlargement. It is 14.7 cm in length. The abdominal aorta is normal in caliber. No significantly enlarged retroperitoneal lymph nodes seen. There are vascular calcifications and phleboliths seen. No urinary tract stone is seen. No hydronephrosis. There is suggestion of prior hysterectomy. Correlate with surgical history. There is no bowel obstruction. Multiple colonic diverticula seen mostly in the sigmoid colon with no diverticulitis. Sutures are seen along the base of the cecum, possibly related to prior appendectomy. No bowel obstruction. No significant free fluid or fluid collection in the abdomen or pelvis is seen. The osseous structures demonstrate degenerative changes in the hip joints and the lumbar spine. IMPRESSION: 1. No urinary tract stones or hydronephrosis. 2. Diverticulosis. No diverticulitis. 3. Vgld-xn-cqrevloe splenomegaly. 4. Small pericardial effusion. Dictated on workstation # [id number] Dict: 06/01/17 1308 Trans: 06/01/17 1326 [facility] [id number] Interpreted by: SINDY BERTRAND MD Electronically signed by: Departure Impression Impression: Primary Impression: Cardiopulmonary arrest with successful resuscitation Additional Impressions: Bradycardia Chest pain Qualified Codes: R07.9 - Chest pain, unspecified Diffuse abdominal pain Disposition: XFER T-TRM HOSP Condition: Critical (this) Transfer Transfer Time: 14:01 Transfer Facility: [place], [place], Dr. Estrella accepting Departure-Patient Inst. Referrals: ISABEL HUMPHREYS MD (PCP/Family) Primary Care Physician GUMARO HEBERT MD Jun 01, 2017 10:45
[2017-06-01 11:04] LABS: BASOPHILS % (AUTO) 1 % (0-10); EOSINOPHILS # (AUTO) 0.1 10^3/uL (0.0-0.3); EOSINOPHILS % (AUTO) 2 % (0-10); LYMPHOCYTES # (AUTO) 0.5 X 10^3 (1.0-4.0); LYMPHOCYTES % (AUTO) 15 % (12-44); MEAN CORPUSCULAR HEMOGLOBIN 31 PG (25-34); MEAN CORPUSCULAR HGB CONC 33 G/DL (32-36); MEAN CORPUSCULAR VOLUME 94 FL (80-99); MEAN PLATELET VOLUME 10.2 FL (7.4-10.4); MONOCYTES # (AUTO) 0.3 X 10^3 (0.0-1.0); MONOCYTES % (AUTO) 9 % (0-12); NEUTROPHILS # (AUTO) 2.4 X 10^3 (1.8-7.8); NEUTROPHILS % (AUTO) 74 % (42-75); PLATELET COUNT 95 10^3/uL (130-400); RED BLOOD COUNT 3.41 10^6/uL (4.35-5.85); RED CELL DISTRIBUTION WIDTH 12.6 % (10.0-14.5); WHITE BLOOD COUNT 3.3 10^3/uL (4.3-11.0)
[2017-06-01] MEDS ORDERED: morphine INJ 10 MG/ML 1ML (SYR OR VIAL) IVP STA (11:21)
[2017-06-01 11:26] LABS: ALANINE AMINOTRANSFERASE 7 U/L (0-55); ALBUMIN 3.4 GM/DL (3.2-4.5); ANION GAP 11 MMOL/L (5-14); ASPARTATE AMINO TRANSFERASE 12 U/L (5-34); BILIRUBIN,TOTAL 0.6 MG/DL (0.1-1.0); BLOOD UREA NITROGEN 19 MG/DL (7-18); BUN/CREATININE RATIO 7; CALCIUM 8.6 MG/DL (8.5-10.1); CARBON DIOXIDE 26 MMOL/L (21-32); CHLORIDE 95 MMOL/L (98-107); CREATININE SERUM 2.79 MG/DL (0.60-1.30); GFR ESTIMATED 17; GLUCOSE 240 MG/DL (70-105); MAGNESIUM 2.5 MG/DL (1.8-2.4); POTASSIUM 4.4 MMOL/L (3.6-5.0); SODIUM 132 MMOL/L (135-145); TOTAL PROTEIN 6.9 GM/DL (6.4-8.2)
[2017-06-01 11:33] LABS: MYOGLOBIN SERUM 160.6 NG/ML (10.0-92.0)
[2017-06-01 11:56] LABS: INR 1.1 (0.8-1.4); PROTHROMBIN TIME PATIENT 14.3 SEC (12.2-14.7)
--- NOTE | 2017-06-01 12:09 | Diagnostic Imaging Report ---
PROCEDURE: CT head without contrast. TECHNIQUE: Multiple contiguous axial images were obtained through the brain without the use of intravenous contrast. INDICATION: Syncope. COMPARISON: CT head without contrast 04/19/2015. FINDINGS: Again seen is chronic encephalomalacia in the left cerebellar hemisphere. Chronic infarct in the right basal ganglia. Diffuse low attenuation changes in the deep white matter of both cerebral hemispheres have mildly progressed. No intracranial hemorrhage, mass effect, hydrocephalus or extra-axial fluid collection. No CT evidence of large territorial infarct. Postoperative changes in the left globe. IMPRESSION: 1. Low-attenuation changes in the deep white matter of both cerebral hemispheres appears to have progressed since the prior exam. Although this may represent progression of chronic small vessel ischemic change, an acute or subacute process cannot be excluded. This could be better evaluated with MRI. 2. No intracranial hemorrhage. No CT evidence of a large territorial acute or subacute infarct. 3. Chronic infarcts in the left cerebellar hemisphere and right basal ganglia. Dictated by: Dictated on workstation # [id number]
--- NOTE | 2017-06-01 12:11 | Diagnostic Imaging Report ---
Portable AP view of the chest. INDICATION: Chest pain. FINDINGS: The heart is moderately enlarged. There is mild pulmonary vascular congestion. There is no focal significant consolidation evident. There is a large bore venous catheters tunneled through the right internal jugular vein with the tip at the right atrium level. There is also an infusion port through the left subclavian approach with the tip at the SVC level. No significant effusion or pneumothorax. IMPRESSION: Cardiomegaly with pulmonary vascular congestion. Dictated by: Dictated on workstation # [id number]
[2017-06-01] MEDS ORDERED: fentaNYL INJECTION 100 MCG/2 ML AMP IVP STA (12:43)
--- NOTE | 2017-06-01 13:27 | Diagnostic Imaging Report ---
PROCEDURE: CT abdomen and pelvis without contrast. TECHNIQUE: Multiple contiguous axial images were obtained through the abdomen and pelvis without the use of intravenous contrast. INDICATION: Abdominal pain. COMPARISON: 05/17/2014. FINDINGS: The lung bases demonstrate no significant abnormality. There is a small pericardial effusion. Cardiac size is slightly prominent. The Liver, the adrenal glands, and the pancreas appear unremarkable. Cholecystectomy clips are seen. The spleen demonstrates jfvg-mh-xhherspe enlargement. It is 14.7 cm in length. The abdominal aorta is normal in caliber. No significantly enlarged retroperitoneal lymph nodes seen. There are vascular calcifications and phleboliths seen. No urinary tract stone is seen. No hydronephrosis. There is suggestion of prior hysterectomy. Correlate with surgical history. There is no bowel obstruction. Multiple colonic diverticula seen mostly in the sigmoid colon with no diverticulitis. Sutures are seen along the base of the cecum, possibly related to prior appendectomy. No bowel obstruction. No significant free fluid or fluid collection in the abdomen or pelvis is seen. The osseous structures demonstrate degenerative changes in the hip joints and the lumbar spine. IMPRESSION: 1. No urinary tract stones or hydronephrosis. 2. Diverticulosis. No diverticulitis. 3. Uvjs-aq-ktrjvelr splenomegaly. 4. Small pericardial effusion. Dictated by: Dictated on workstation # [id number]
[2017-06-01] MEDS ORDERED: D5W 250 ML (IVPB) 250 ML IV ONE ×2 (13:34→13:38)
[2017-06-01] MEDS ORDERED: NOREPINEPHRINE 4 MG/4 ML (LEVOPHED) AMP IV ONE ×2 (13:34→13:38)
[2017-06-01 13:55] VITALS: BP 123/79
[2017-06-01 14:22] LABS: ABG BASE EXCESS 4.9 MMOL/L (-2.5-2.5); ABG HCO3 28 MMOL/L (23-27); ABG OXYGEN SATURATION 100 % (94-100); ABG PCO2 37 MMHG (35-45); ABG PO2 134 MMHG (79-93); ABG TCO2 29.5 MMOL/L (21.0-31.0); ALLENS TEST YES-POS
[2017-06-01 14:23] LABS: PATIENT TEMP 97.4
--- NOTE | 2017-06-01 14:30 | Diagnostic Imaging Report ---
INDICATION: Post intubation. Frontal chest obtained at 2:08 p.m. and compared with 06/01/17 at 11:47 a.m. FINDINGS: There is cardiomegaly again noted. There is a new ET tube in place, tip overlying mid trachea. NG tube tip is below the film. Dialysis catheter is unchanged. The heart is mildly enlarged. There is some mild central vascular prominence and mild right basilar infiltrate versus atelectasis. Previous Port-A-Cath is unchanged. IMPRESSION: Cardiomegaly and central vascular prominence with mild right basilar infiltrate versus atelectasis. Life support lines as described above. Dictated by: Dictated on workstation # [id number]
[2017-06-01 14:45] VITALS: BP 130/74
[2017-06-01] MEDS ORDERED: ROCURONIUM 50 MG/5 ML (ZEMURON) VIAL IV ONE (15:40)
[2017-06-01] MEDS ORDERED: MIDAZOLAM 5 MG/5 ML (VERSED) VIAL ONE (15:40)
[2017-06-01] MEDS ORDERED: EPINEPHrine INJECTION 1 MG/ML AMP ONE (15:40)
[2017-06-01] MEDS ORDERED: NS IV 1000 ML 1,000 ML IV SCH (20:00)
== END 2017-06-01 14:45 | disposition short-term general hospital (02) ==
LOC: EDUNIT# 10:07 → ER 10:08
DX: I46.9 Cardiac arrest, cause unspecified (principal); R10.84 Generalized abdominal pain; J44.9 Chronic obstructive pulmonary disease, unspecified; I25.10 Atherosclerotic heart disease of native coronary artery without angina pectoris; K21.9 Gastro-esophageal reflux disease without esophagitis; E03.9 Hypothyroidism, unspecified; F41.9 Anxiety disorder, unspecified; E11.22 Type 2 diabetes mellitus with diabetic chronic kidney disease; I12.0 Hypertensive chronic kidney disease with stage 5 chronic kidney disease or end stage renal disease; N18.6 End stage renal disease; Z80.41 Family history of malignant neoplasm of ovary; Z99.2 Dependence on renal dialysis; Z86.73 Personal history of transient ischemic attack (TIA), and cerebral infarction without residual deficits; Z79.82 Long term (current) use of aspirin; Z86.14 Personal history of Methicillin resistant Staphylococcus aureus infection; Z79.4 Long term (current) use of insulin; Z82.49 Family history of ischemic heart disease and other diseases of the circulatory system; Z87.19 Personal history of other diseases of the digestive system; Z90.49 Acquired absence of other specified parts of digestive tract; Z95.5 Presence of coronary angioplasty implant and graft; Z90.710 Acquired absence of both cervix and uterus
CPT/HCPCS: 36415; 70450; 71010; 74176; 80053; 82805; 83735; 83874; 84484; 85025; 85610; 85730; 87070; 87077; 87186; 87205; 93005; 93041; 96374; 96375